=== PATIENT | female | born 1980 | race Caucasian/White ===

== ENCOUNTER 2020-07-02 00:37 | Emergency (ER) | payer MEDICAID, SELFPAY ==
--- NOTE | 2020-07-02 00:38 | XRR_ITS ---
PROCEDURE INFORMATION: Exam: XR Right Knee Exam date and time: 07/02/2020 12:43 AM Age: 40 years old Clinical indication: Knee; Right; Prior surgery; Surgery date: 6+ months; Surgery type: Patella; Patient HX: C/O pain past few days. Worsening ability to bear weight. No injury. ; Additional info: Pain RT knee TECHNIQUE: Imaging protocol: XR Right knee. Views: 3 views. COMPARISON: No relevant prior studies available. FINDINGS: Bones/joints: Chronic appearing irregularities at anterior proximal tibia. Soft tissues: Normal. XR/XR knee RT 3V* [id number] IMPRESSION: No acute findings.
[2020-07-02 00:45] VITALS: BP 172/93; PULSE 72; RESP 18; TEMP 36.2; O2SAT 100; BMI 38.2
[2020-07-02 00:54] VITALS: PULSE 78
--- NOTE | 2020-07-02 01:00 | W.ED.EXTPRO ---
HPI - Extremity Problem General: Chief complaint: Extremity Problem,Nontraumatic Stated complaint: knee pain, right Time Seen by Provider: 07/02/20 00:38 Source: patient Mode of arrival: ambulatory Limitations: no limitations History of Present Illness: HPI Narrative: 40-year-old female patient presents to the emergency department with several day history of right knee pain. She reports was in the shower 2 days ago when she twisted wrong causing pain to her knee. She states pain was not so bad yesterday but has increased today. 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 She states recently moved here and does not have a primary care provider. She states has not taken anything for pain. MD Complaint: extremity pain and extremity swelling Onset (ago): day(s) (2) Pain Consistency: constant Location: right and lower extremity Quality: aching Relieving factors: immobilization and rest Exacerbating factors: weight bearing and walking Associated symptoms: Reports no associated symptoms; Deny chest pain, fever(s) or rash Review of Systems General: Reports: 10 or more systems reviewed and unremarkable except in HPI and below Const: Denies: fever(s), chills or diaphoresis Eyes: Denies: blurry vision or eye redness ENMT: Denies: throat pain, dental pain or disequilibrium Card: Denies: chest pain, palpitations or irregular heart rhythm Resp: Denies: dyspnea, productive cough, non-productive cough or wheezing GI: Denies: abdominal pain, nausea or vomiting : Denies: difficulty voiding or dysuria Musc: Reports: extremity swelling, joint pain and joint swelling; Denies: neck pain or back pain Skin/Breast: Denies: rash or pruritus Neuro: Denies: headache(s), weakness in extremities or behavioral changes Psych: Denies: anxiety or depression Zach/Lymph: Denies: easy bruising PFSH ED PFSH: Medical History (Updated 07/02/20 @ 01:39 by FELA Blaek) History of knee problem Obesity Social History (Updated 07/02/20 @ 01:02 by FELA Blake) Lives independently: Yes Household members: spouse Physical Exam Const: COMMON NORMALS: no acute distress, patient oriented x3, healthy appearing and alert GENERAL APPEARANCE: cooperative, comfortable and well hydrated HENMT: COMMON NORMALS: normocephalic, Normal external nose present and moist oral mucous membranes HEAD & SCALP: normocephalic NOSE: Normal external nose present Eye: COMMON NORMALS: Equal, round and reactive pupils present and EOMs intact bilaterally GENERAL EYE: appearance normal, both eyes and all related structures PUPIL: Yes Equal, round and reactive pupils present Neck/C-Spine: COMMON NORMALS: full ROM and no lymphadenopathy GENERAL: Yes normal visual inspection and Yes trachea midline CERVICAL SPINE: Yes cervical ROM normal Lymph: LYMPHATIC: no lymphadenopathy noted Chest: COMMONS NORMALS: normal inspection of the chest Resp: COMMON NORMALS: normal respiratory effort and clear to auscultation bilaterally AUSCULTATION: clear to auscultation bilaterally Cardio: COMMON NORMALS: regular rhythm, S1 normal heart sound present and S2 normal heart sound present RHYTHM: regular rhythm HEART SOUNDS: S1 normal heart sound present and S2 normal heart sound present GI: COMMON NORMALS: Soft to palpation and non-tender INSPECTION: Yes normal to inspection PALPATION: Yes Soft to palpation : COMMON NORMALS: Yes no CVA tenderness BLADDER/KIDNEY EXAM: Yes no CVA tenderness Back/Pelvis: COMMON NORMALS: no CVA tenderness and thoracic and lumbar spine normal to inspection Extremity: COMMON NORMALS: normal to inspection, capillary refill normal, no clubbing, cyanosis or edema, no calf tenderness and no pedal edema GENERAL: Yes normal exam except as noted RIGHT LOWER EXTREMITY: Yes knee joint Right knee: Yes inspection (edema anterior rt knee), Yes palpation (Pain along the patellar joint), Yes ROM (Limited secondary to pain) and Yes neurovascular exam (Distally intact) Neuro: COMMON NORMALS: patient oriented x3 and no focal motor deficits SENSORIUM/ORIENTATION: Yes alert Psych: COMMON NORMALS: mental status grossly normal, Normal thought process present and cooperative ACTIVITY/MOTOR BEHAVIOR: Yes appropriate eye contact THOUGHT PROCESS: Normal thought process present Skin: COMMON NORMALS: no rashes or lesions noted and turgor normal GENERAL SKIN EXAM: no rashes or lesions noted and turgor normal Course Vital Signs: Vital signs: Vital Signs Temperature 97.1 F L 07/02/20 00:45 Pulse Rate 68 07/02/20 01:44 Respiratory Rate 18 07/02/20 01:44 Blood Pressure 162/106 07/02/20 01:44 Pulse Oximetry 96 07/02/20 01:44 MDM - Extremity (Nontraumatic) Imaging Data^: Xray Ortho: Radiologist's impression: [address] [id number] XRay Report Signed Patient: Dolores Carlson Unit #: [id number] : 1980 Age/Sex: 40 / F ADM Date: 07/02/20 Loc: ER Room/Bed: Attending Dr: Ordering Provider/Ordering MD: Charo Larson Date of Service: 07/02/20 Procedure(s): XR knee RT 3V* [id number] Accession Number(s): [id number] Report Number: [id number] PROCEDURE INFORMATION: Exam: XR Right Knee Exam date and time: 07/02/2020 12:43 AM Age: 40 years old Clinical indication: Knee; Right; Prior surgery; Surgery date: 6+ months; Surgery type: Patella; Patient HX: C/O pain past few days. Worsening ability to bear weight. No injury. ; Additional info: Pain RT knee TECHNIQUE: Imaging protocol: XR Right knee. Views: 3 views. COMPARISON: No relevant prior studies available. FINDINGS: Bones/joints: Chronic appearing irregularities at anterior proximal tibia. Soft tissues: Normal. XR/XR knee RT 3V* [id number] IMPRESSION: No acute findings. Dictated By: Alexey Cancino MD Signed By: Alexey Cancino MD Signed Date/Time: 07/02/20130 DD/ 0129 Discharge Plan Discharge Patient Disposition: Home Clinical Impression: Derangement of knee, right Acute knee pain Qualifiers: Laterality: right Qualified Code(s): M25.561 - Pain in right knee Condition: Stable Prescriptions: New IBU 800 mg tablet 800 mg PO TID PRN (Reason: pain) Qty: 30 RF: 0 Discharge Orders: Discharge ED (Routine); Ordered 07/02/20 Ordered By: Charo Larson Discharge Diet: Usual diet Discharge Activity: Limit activity as instructed Patient Instructions: Crutch Instructions (ED), Knee Pain (ED), Knee Immobilizer (ED) Activity Restrictions/Additional Instructions: Social service will assist with MRI scheduling of your right knee and follow-up with orthopedic specialty. You will also need primary care follow-up/establishment since you are new to the area, they will help with this as well. Keep the right knee elevated, may apply cool compresses to help with swelling and pain. Utilize crutches and knee immobilizer to help with knee weakness and pain. Return to the emergency department if you develop calf pain, increased right lower extremity pain or concerning symptoms. Do not take [id number] medications such as Advil, naproxen, Aleve or anti-inflammatories as duplication of therapy can occur May take Tylenol as needed for pain with prescribed ibuprofen. Coding Level of Care Code ED Cardiology Rn for Zabrina Burgess Exam Comprehensive
[2020-07-02] MEDS: ibuprofen 800 mg tablet PO (01:10)
[2020-07-02 01:44] VITALS: BP 162/106; PULSE 68; RESP 18; O2SAT 96
--- NOTE | 2020-07-05 07:49 | DCPLANNER ---
late entry - dry cleaning manager had message to schedule an out patient MRI for patient and a follow up appointment with ortho. dry cleaning manager faxed order for MRI and patients information to centralized scheduling, will call for appointment information. dry cleaning manager also had message to schedule a follow up appointment for patient after the MRI with ortho. After the MRI is scheduled, special education case manager will call ortho clinic for appointment. dry cleaning manager also had message to speak with patient about getting established with a primary care physician. dry cleaning manager will call patient on 07.05.20 to talk about getting a primary care physician.
--- NOTE | 2020-07-05 09:55 | DCPLANNER ---
manager non profit received a note to schedule patient a primary care doctor appointment. manager non profit spoke with patient and gave her different options in [facility]. Patient stated that she wanted to go with Doctor Orlando's office and per Doctor Orlando's instructions, patient should call and schedule it themselves. manager non profit provided patient with Doctor Orlando's contact information.
--- NOTE | 2020-07-28 14:26 | DCPLANNER ---
Patient had a follow up appointment scheduled for 07.18.20 for an out patient MRI - patient did attend. manager human capital called ortho clinic to refer patient to the ortho clinic after the MRI. manager human capital spoke with Libby, gave clinic patients information. manager human capital was told that patients information would be printed and reviewed. Clinic will call patient with appointment information.
--- NOTE | 2020-08-01 07:50 | DCPLANNER ---
Patient has a follow up appointment scheduled for Monday, August 03, 2020 at 10:[address] Barron. Clinic will call patient with appointment information.
--- NOTE | 2020-08-17 08:07 | DCPLANNER ---
Patient had a follow up appointment scheduled for 08.03.[address] Barron at [facility] - patient did attend appointment.
== END 2020-07-02 01:48 | disposition home or self-care (01) ==
PROVIDERS: Emergency Provider Nurse Practitioner Family
DX: M23.91 Unspecified internal derangement of right knee (principal)
CPT/HCPCS: 12345; 29530; 73562; 99281; 99283; E0114

== ENCOUNTER 2020-07-07 11:11 | Observation (INO) | payer MEDICAID, SELFPAY ==
[2020-07-07 11:15] VITALS: BP 196/122; PULSE 74; RESP 18; TEMP 36.7; O2SAT 96; BMI 39.9
--- NOTE | 2020-07-07 11:34 | ED_ITS ---
HPI - Nausea/Vomiting/Diarrhea General: Chief complaint: Nausea/Vomiting/Diarrhea Stated complaint: N/V Time Seen by Provider: 07/07/20 11:18 History of Present Illness: HPI Narrative: The patient is a 40-year-old female with chronic neck and back pain on 30 mg of morphine 3 times a day. She comes to the ER because she has been nauseous and vomiting since 3 AM. She says she has been 3 days without her morphine because she has ran out. She recently moved to the area and has not established care and has been trying to get in to a pain management doctor. She said she has had at least 10 bouts of vomiting and almost nothing left in her stomach is coming up up bile. Denies abdominal pain. She says she has mild loose stools but no significant diarrhea. MD elicited complaint: nausea and vomiting Description of vomiting: bilious Associated nausea: Yes Location of pain: None Severity: moderate Exacerbating factors: eating Relieving factors: none Context: other (Off chronic narcotics for 3 days) Associated symtoms: Reports anxiety and nausea; Denies change in vision, chest pain, dizziness, fatigue, headache(s) or palpitations Review of Systems General: Reports: 10 or more systems reviewed and unremarkable except in HPI and below Const: Denies: fatigue Eyes: Denies: change in vision, blurry vision or eye redness ENMT: Denies: throat pain, swelling of lips/tongue, ear or mastoid pain or nasal congestion Card: Denies: chest pain, palpitations, irregular heart rhythm, edema, dyspnea on exertion or orthopnea Resp: Denies: dyspnea, productive cough or non-productive cough GI: Reports: nausea and vomiting; Denies: abdominal pain, diarrhea or GI cramping : Denies: flank pain, difficulty voiding, urinary frequency or urinary urgency Musc: Denies: neck pain, back pain, extremity pain, joint pain, joint redness, limited range of motion or muscle weakness Skin/Breast: Denies: rash, pruritus, erythema, skin pain or skin tenderness Neuro: Denies: headache(s), numbness in extremities, weakness in extremities, sensory changes, difficulty walking, dizziness, confusion or Slurred speech present Psych: Reports: anxiety Endo: Denies: polyuria All/Imm: Denies: urticaria, throat swelling or tongue swelling PFSH ED PFSH: Medical History (Updated 07/07/20 @ 19:26 by Daniel Josue MD) History of knee problem Obesity Social History (Updated 07/02/20 @ 01:02 by FELA Blake) Lives independently: Yes Household members: spouse Physical Exam Const: COMMON NORMALS: no acute distress, average body habitus, patient oriented x3, no limitations, healthy appearing, alert and well nourished GENERAL APPEARANCE: cooperative, comfortable, well kempt, well developed and anxious NUTRITIONAL APPEARANCE: obese ORIENTATION/CONSCIOUSNESS: Yes awake, Yes oriented to person, Yes oriented to place and Yes oriented to time HENMT: COMMON NORMALS: normocephalic, external ears normal and Normal external nose present HEAD & SCALP: normal to inspection and normocephalic NOSE: Normal external nose present EXTERNAL EAR: Yes external ears normal MOUTH: Normal oral and palatal mucosa present THROAT: posterior oropharynx normal Eye: COMMON NORMALS: Equal, round and reactive pupils present and EOMs intact bilaterally GENERAL EYE: appearance normal, both eyes and all related structures PUPIL: Yes Equal, round and reactive pupils present Neck/C-Spine: COMMON NORMALS: full ROM, no lymphadenopathy, no meningeal signs and no JVD GENERAL: Yes normal visual inspection Lymph: LYMPHATIC: no lymphadenopathy noted Chest: COMMONS NORMALS: normal inspection of the chest and normal palpation of entire chest wall Resp: COMMON NORMALS: normal respiratory effort, No retractions, No use of accessory muscles, clear to auscultation bilaterally and percussion normal EFFORT & INSPECTION: Yes able to speak in complete sentences AUSCULTATION: clear to auscultation bilaterally PERCUSSION: percussion normal Cardio: COMMON NORMALS: no JVD, regular rate, regular rhythm, S1 normal heart sound present, S2 normal heart sound present and Peripheral pulses 2+ throughout RATE: regular rate RHYTHM: regular rhythm HEART SOUNDS: S1 normal heart sound present and S2 normal heart sound present PERIPHERAL PULSES: Peripheral pulses 2+ throughout GI: COMMON NORMALS: Normal to inspection, nondistended, normoactive bowel sounds present, Soft to palpation, non-tender and no masses INSPECTION: Yes normal to inspection PALPATION: Yes Soft to palpation : COMMON NORMALS: Yes no CVA tenderness BLADDER/KIDNEY EXAM: Yes no CVA tenderness Back/Pelvis: COMMON NORMALS: no CVA tenderness, thoracic and lumbar spine normal to inspection, no thoracic nor lumbar tenderness and thoraco-lumbar ROM normal Extremity: COMMON NORMALS: normal to inspection, full ROM, capillary refill normal, no joint enlargement and no pedal edema GENERAL: Yes normal exam except as noted Neuro: COMMON NORMALS: patient oriented x3, CN's II-XII intact bilaterally, moves all extremities, no focal motor deficits, no sensory deficits noted and gait normal SENSORIUM/ORIENTATION: Yes alert, Yes oriented to person, Yes oriented to place and Yes oriented to time MENINGEAL SIGNS: Yes no meningeal signs Psych: COMMON NORMALS: mental status grossly normal, Normal thought process present, cooperative, normal affect and speech normal APPEARANCE: Yes well kempt ATTITUDE: Yes calm SPEECH: Yes normal speech THOUGHT PROCESS: Normal thought process present Skin: COMMON NORMALS: no rashes or lesions noted GENERAL SKIN EXAM: no rashes or lesions noted Course Vital Signs: Vital signs: Vital Signs Temperature 98.1 F 07/07/20 11:15 Pulse Rate 74 07/07/20 11:15 Respiratory Rate 18 07/07/20 11:15 Blood Pressure 196/122 07/07/20 11:15 Pulse Oximetry 96 07/07/20 11:15 MDM - Nausea/Vomiting/Diarrhea MDM Narrative: Medical decision making narrative: The patient is a 40-year-old female who comes to the ER 3 days after running out of her 30 mg morphine tablets which she took 3 times a day. She has intractable vomiting and despite multiple efforts she continues to retch. I have even given her morphine twice which has not helped. She is dehydrated and will need observation upstairs. Dr. Valadez accepts Lab Data: Labs: Lab Results 07/07/20 07/07/20 07/07/20 Range/Units 12:15 12:15 13:42 WBC 15.4 H (4.0-10.0) 10^3/ uL RBC 4.56 (4.1-5.3) 10^6/u L Hgb 14.2 (11.5-15.3) g/dL Hct 42.8 (37.0-47.0) % MCV 93.9 (81-99) fL MCH 31.1 (28.0-34.0) pg MCHC 33.2 (30.0-36.0) g/dL RDW 12.9 (12.1-15.1) % Plt Count 40 L (130-400) 10^3/c mm MPV 11.9 H (7.4-10.4) fL Neut % (Auto) 87.2 % Lymph % (Auto) 7.9 % [place] % (Auto) 4.0 % Eos % (Auto) 0.1 % Baso % (Auto) 0.3 % Neut # (Auto) 13.47 H (1.8-7.7) 10^3/u L Lymph # (Auto) 1.2 (0.8-4.8) 10^3/u L [place] # (Auto) 0.6 (0.2-0.9) 10^3/u L Eos # (Auto) 0.0 (0.0-0.8) 10^3/u L Baso # (Auto) 0.0 (0.0-0.1) 10^3/u L Nucleated RBC % (a uto) 0.9 % Nucleated RBCs # 0.1 /100WBC Sodium (136-145) mmol/L Potassium (3.5-5.1) mmol/L Chloride (98-107) mmol/L Carbon Dioxide (22-29) mmol/L Anion Gap (5-19) BUN (6-20) mg/dL Creatinine (0.5-0.9) mg/dL GFR Calculation (90-130) mL/min Glucose (65-115) mg/dL Calculated Osmolal ity (285-295) mOsm/k g Lactate (0.5-2.2) mmol/L Calcium (8.5-10.5) mg/dL Total Bilirubin (0.15-1.2) mg/dL AST (0-32) U/L ALT (0-33) U/L Alkaline Phosphata se (35-105) IU/L Total Protein (6.6-8.7) g/dL Albumin (3.5-5.2) g/dL Globulin (1.3-4.6) g/dL Lipase (13-60) U/L HCG, Qual (Negative) Urine Color Yellow (Yellow) Urine Appearance Sl hazy (CLEAR) Urine pH 5 (5-7) Ur Specific Gravit y 1.015 (1.005-1.030) Urine Protein Neg (Negative) Urine Glucose (UA) Norm (Normal) Urine Ketones Negative (Negative) Urine Blood Neg (Negative) Urine Nitrate Negative (Negative) Urine Bilirubin Neg (Negative) Urine Urobilinogen Norm (Negative) mg/dL Ur Leukocyte Kecia ase Negative (Negative) Urine RBC 0-4 H (0-2) /hpf Urine WBC 5-10 H (0-5) /hpf Ur Squamous Epith Cells 15-25 H (0-5) /hpf Amorphous Sediment Not Reportable Urine Bacteria 3+ H (NONE) /hpf Urine Opiates Scre en Positive H (Negative) ng/mL Ur Barbiturates Sc reen Negative (Negative) ng/mL Ur Phencyclidine S crn Negative (Negative) ng/mL Ur Amphetamines Sc reen Negative (Negative) ng/mL U Benzodiazepines Scrn Negative (Negative) ng/mL Urine Cocaine Scre en Negative (Negative) ng/mL U Marijuana (THC) Screen Negative (Negative) ng/mL Ethyl Alcohol (0-10) mg/dL 07/07/20 07/07/20 07/07/20 Range/Units 13:42 13:42 13:42 WBC (4.0-10.0) 10^3/ uL RBC (4.1-5.3) 10^6/u L Hgb (11.5-15.3) g/dL Hct (37.0-47.0) % MCV (81-99) fL MCH (28.0-34.0) pg MCHC (30.0-36.0) g/dL RDW (12.1-15.1) % Plt Count (130-400) 10^3/c mm MPV (7.4-10.4) fL Neut % (Auto) % Lymph % (Auto) % [place] % (Auto) % Eos % (Auto) % Baso % (Auto) % Neut # (Auto) (1.8-7.7) 10^3/u L Lymph # (Auto) (0.8-4.8) 10^3/u L [place] # (Auto) (0.2-0.9) 10^3/u L Eos # (Auto) (0.0-0.8) 10^3/u L Baso # (Auto) (0.0-0.1) 10^3/u L Nucleated RBC % (a uto) % Nucleated RBCs # /100WBC Sodium 144 (136-145) mmol/L Potassium 4.8 (3.5-5.1) mmol/L Chloride 109 H (98-107) mmol/L Carbon Dioxide 20 L (22-29) mmol/L Anion Gap 19.8 H (5-19) BUN 15 (6-20) mg/dL Creatinine 0.7 (0.5-0.9) mg/dL GFR Calculation 91.8 (90-130) mL/min Glucose 111 (65-115) mg/dL Calculated Osmolal ity 300 H (285-295) mOsm/k g Lactate 2.0 (0.5-2.2) mmol/L Calcium 9.6 (8.5-10.5) mg/dL Total Bilirubin 0.4 (0.15-1.2) mg/dL AST 24 (0-32) U/L ALT 16 (0-33) U/L Alkaline Phosphata se 93 (35-105) IU/L Total Protein 7.7 (6.6-8.7) g/dL Albumin 4.0 (3.5-5.2) g/dL Globulin 3.7 (1.3-4.6) g/dL Lipase 25 (13-60) U/L HCG, Qual Negative (Negative) Urine Color (Yellow) Urine Appearance (CLEAR) Urine pH (5-7) Ur Specific Gravit y (1.005-1.030) Urine Protein (Negative) Urine Glucose (UA) (Normal) Urine Ketones (Negative) Urine Blood (Negative) Urine Nitrate (Negative) Urine Bilirubin (Negative) Urine Urobilinogen (Negative) mg/dL Ur Leukocyte Kecia ase (Negative) Urine RBC (0-2) /hpf Urine WBC (0-5) /hpf Ur Squamous Epith Cells (0-5) /hpf Amorphous Sediment Urine Bacteria (NONE) /hpf Urine Opiates Scre en (Negative) ng/mL Ur Barbiturates Sc reen (Negative) ng/mL Ur Phencyclidine S crn (Negative) ng/mL Ur Amphetamines Sc reen (Negative) ng/mL U Benzodiazepines Scrn (Negative) ng/mL Urine Cocaine Scre en (Negative) ng/mL U Marijuana (THC) Screen (Negative) ng/mL Ethyl Alcohol < 10 (0-10) mg/dL Discharge Plan Discharge Patient Disposition: Placed in Observation Clinical Impression: Acute narcotic withdrawal, Intractable cyclical vomiting Coding Level of Care Code ED Stile Ripsaw Operator for Chg Fwd Exam Comprehensive
[2020-07-07 12:32] LABS: Amphetamines Screen Urine Negative (Negative); Barbiturates Screen Urine Negative (Negative); Benzodiazepines Screen Urine Negative (Negative); Cocaine Screen Urine Negative (Negative); Opiate Screen Urine Positive (Negative); PCP Screen Urine Negative (Negative); THC Screen Urine Negative (Negative)
[2020-07-07 12:34] LABS: Add Urine Microscopic? YES; Bilirubin Urine Neg (Negative); Blood Urine Neg (Negative); Glucose Urine UA Norm (Normal); Ketones Urine Negative (Negative); Leukocyte Esterase Urine Negative (Negative); Nitrate Urine Negative (Negative); Protein Urine Neg (Negative); Specific Gravity, Urine 1.015 (1.005-1.030); Urine Appearance SL Hazy (CLEAR); Urine Color Yellow (Yellow); Urobilinogen Urine Norm (Negative); pH Urine 5 (5-7)
[2020-07-07 12:35] LABS: Add Urine Culture? No; Bacteria Urine 3+ /hpf; RBC Urine 0-4 /hpf (0-2); Squamous Epithelial Cell Urine 15-25 /hpf (0-5)
[2020-07-07] MEDS: diphenhydrAMINE 50 mg/mL SDV 1mL 25 MG IVP (13:26)
[2020-07-07] MEDS: ondansetron 2 mg/ML SDV 2 mL 4 MG IVP ×3 (13:27→22:52)
[2020-07-07] MEDS: sodium chloride 0.9% 1,000 ML 999 ML IV (13:27)
[2020-07-07] MEDS: cloNIDine 0.1 mg Tablet 0.2 MG PO (13:27)
[2020-07-07 14:19] LABS: HCG, Serum Qual Negative (Negative)
[2020-07-07 14:26] LABS: Alkaline Phosphatase 93 IU/L (35-105); Blood Urea Nitrogen 15 mg/dL (6-20); Calcium 9.6 mg/dL (8.5-10.5); Carbon Dioxide 20 mmol/L (22-29); Chloride 109 mmol/L (98-107); Globulin 3.7 g/dL (1.3-4.6); Glomerular Filtration Rate 91.8 mL/min (90-130); Glucose 111 mg/dL (65-115); Lipase 25 U/L (13-60); Osmolality Calculated 300 mOsm/kg (285-295); Sodium 144 mmol/L (136-145); Total Bilirubin 0.4 mg/dL (0.15-1.2); Total Protein 7.7 g/dL (6.6-8.7)
[2020-07-07 14:28] LABS: Alcohol Level < 10 mg/dL (0-10)
[2020-07-07 14:29] LABS: Alanine Aminotransferase 16 U/L (0-33); Anion Gap 19.8 (5-19); Aspartate Amino Transferase 24 U/L (0-32); Potassium 4.8 mmol/L (3.5-5.1)
[2020-07-07 14:55] LABS: Basophils % 0.3 %; Eosinophils % 0.1 %; Hematocrit 42.8 % (37.0-47.0); Hemoglobin 14.2 g/dL (11.5-15.3); Lymphocytes # 1.2 10^3/uL (0.8-4.8); Lymphocytes % 7.9 %; Mean Corpuscular HGB Conc 33.2 g/dL (30.0-36.0); Mean Corpuscular Hemoglobin 31.1 pg (28.0-34.0); Mean Corpuscular Volume 93.9 fL (81-99); Mean Platelet Volume 11.9 fL (7.4-10.4); Monocytes # 0.6 10^3/uL (0.2-0.9); Neutrophils # 13.47 10^3/uL (1.8-7.7); Neutrophils % 87.2 %; Nucleated Red Blood Cells # 0.1 /100WBC; Nucleated Red Blood Cells % 0.9 %; Platelet Count 40 10^3/cmm (130-400); Red Blood Count 4.56 10^6/uL (4.1-5.3); Red Cell Distribution Width 12.9 % (12.1-15.1); White Blood Count 15.4 10^3/uL (4.0-10.0)
[2020-07-07 14:56] LABS: Slide Review Slide Review Perform
[2020-07-07] MEDS: morphine 4 mg/mL SDV 1 mL 2 MG IVP ×2 (15:14→19:14)
[2020-07-07] MEDS: prochlorperazine 10 mg Tablet PO (15:42)
[2020-07-07 19:47] VITALS: BP 199/110; PULSE 53; RESP 22; O2SAT 95
--- NOTE | 2020-07-07 19:56 | PM.HP ---
Providers/Chief Complaint Admitting Physician: Callie Valadez MD Primary Care Provider: Tammi Ly Chief Complaint: N/V History of Present Illness Dolores Carlson is a 40 year old female who presented to the emergency room with intractable nausea and vomiting. She has recently relocated here from [facility]. She has seen Nevaeh Burt in [place] but not yet been able to get set up with a pain clinic doctor. Ran out of her morphine 3 days ago. She reports taking 30 mg 3 times a day. She indicated that it was immediate release although there was some hesitation in responding to this. Information is not available in external medication records I currently have access to. She woke up last night with the vomiting. It has been continuous throughout the day leading to the emergency room visit. She has not been able to keep any of her other home medications down. She has noted a few small bright red specks of blood in her vomitus. Has had frequent dry heaves in addition to vomiting of foodstuffs later followed by bilious emesis. She has had some diarrhea. Describes some abdominal cramping. Feels very restless but no itching or creepy crawly feelings. No hallucinations. She has been in the emergency room for quite some time today. She has received 2 doses of low-dose morphine, 2 doses of Zofran, 25 of IV Benadryl as well as an attempted oral Compazine. She has allergies to plan and Phenergan but reported that she cannot take Compazine. She has had significant hypertension in addition to other symptoms. She has baseline hypertension for which she takes lisinopril/hydrochlorothiazide. Pressures today 160 systolic to 190 systolic over 90s to 120s diastolic. She has received 2 doses of hydralazine and a dose of oral clonidine without significant improvement in blood pressures. She has additionally received a liter of saline. Given the intractable nature of her symptoms she is being admitted for continued management. Denies any urinary symptoms, fever, chest pain. No other bleeding beside the specks of bright red blood intermittently in vomitus. No active bleeding noted in vomitus at the bedside. Review of Systems Const: Reports: malaise and diaphoresis; Denies: fever(s), chills or snoring Eyes: Denies: change in vision ENMT: Reports: dry mouth; Denies: throat pain, bleeding gums, nasal congestion or epistaxis Card: Reports: lightheadedness; Denies: chest pain, palpitations, edema or syncope Resp: Denies: dyspnea, productive cough, non-productive cough, pain on inspiration or hemoptysis GI: Reports: nausea, vomiting, diarrhea, constipation (Chronically with constipation related to narcotics but not presently) and GI cramping; Denies: hematochezia or melena : Denies: difficulty voiding, dysuria, urinary frequency or hematuria Musc: Reports: back pain (Chronic), joint pain (Right knee, chronic), muscle cramps and other (Achy all over) Skin/Breast: Reports: erythema (On face, reports rosacea); Denies: rash, pruritus or sores Neuro: Denies: headache(s), numbness in extremities, weakness in extremities, difficulty walking, confusion or involuntary movements Psych: Reports: anxiety (Since symptoms started) and other (Very restless right now); Denies: depression, visual hallucinations, auditory hallucinations or tactile hallucinations Zach/Lymph: Denies: easy bruising, easy bleeding, petechiae or purpura Medications/Allergies Home Medications Medication Instructions Recorded Confirmed Last Taken Type ibuprofen [IBU] 800 mg PO TID PRN #30 tab 07/02/20 07/07/20 Unknown Rx duloxetine 60 mg PO DAILY@07/07/20 07/07/20 Unknown History linaclotide [Linzess] 72 mcg PO DAILY PRN 07/07/20 07/07/20 Unknown History lisinopril-hydrochlorothiazide 1 tab PO DAILY@07/07/20 07/07/20 Unknown History Allergies Allergy/AdvReac Type Severity Reaction Status Date / Time hydrocodone Allergy ADR-Nausea Verified 07/07/20 11:35 metoclopramide [From Reglan] Allergy ADR-Itching Verified 07/07/20 11:35 promethazine [From Phenergan] Allergy ADR-Vomitin Verified 07/07/20 11:35 g PFSH Acute PFSH: Medical History (Updated 07/07/20 @ 20:41 by Callie Valadez MD) Chronic narcotic use ~ 2yrs, for back pain Dyslipidemia borderline by report, not on treatment History of pulmonary embolism post op, had DVT Hypertension Obesity BMI 39 Rosacea Surgical History (Updated 07/07/20 @ 20:30 by Callie Valadez MD) History of back surgery (~2017) History of carpal tunnel release left History of D&C History of hysterectomy due to life threatening bleeding while on anticoagulation for PE/DVT History of laparoscopic adjustable gastric banding History of right knee surgery (~2008) patellar realignment History of tonsillectomy Family History (Updated 07/07/20 @ 20:12 by Callie Valadez MD) Father Cancer pancreatic cancer Other Diabetes Heart disease Hypertension Social History (Updated 07/07/20 @ 20:11 by Callie Valadez MD) Smoking and tobacco status: current every day smoker cigarettes [ Other cigarette details: pack per day ] Alcohol intake: never Substance/Drug Use: never Lives independently: Yes Household members: spouse Current occupational status: disabled Female Reproductive History: : 4 Para: 3 Vitals/I&O/Wt Last Vital Signs Temp 98.1 F 07/07/20 11:15 Pulse 53 L 07/07/20 19:47 Resp 22 H 07/07/20 19:47 BP 199/110 07/07/20 19:47 Pulse Ox 95 07/07/20 19:47 07/07/20 07/07/20 07/07/20 06:59 14:59 22:59 Intake Total 1000 / 1000 Balance 1000 / 1000 Weight last 48 hrs Weight 108.862 kg Physical Exam Const: OTHER: Alert, oriented x3, cooperative but extremely restless HENMT: OTHER: Normocephalic atraumatic, dry mucous membranes, increased vascularity to both cheeks, no palatal petechiae noted Eye: OTHER: Pupils equally round and reactive to light Neck/C-Spine: OTHER: Supple but large Resp: OTHER: Clear to auscultation bilaterally, no rales, rhonchi or wheezes noted, the respirations are a bit shallow and tachypneic, no accessory muscle use noted Cardio: OTHER: Regular rate and rhythm, not bradycardic on my examination, no murmurs noted heart sounds distant GI: OTHER: Abdomen soft, mild diffuse tenderness, no localizing pain, rebound or guarding, normoactive bowel sounds : OTHER: Deferred Extremity: NARRATIVE EXTREMITY EXAM: No pretibial edema, has a well-healed lumbar scar with tenderness to palpation in lumbosacral area generally Neuro: OTHER: Face symmetric, speech clear, moves all extremities, restless right now but no abnormal movements noted Psych: OTHER: Normal affect, does not feel well and it shows Skin: OTHER: Hypervascularity noted to both cheeks, no petechiae, ecchymosis, purpura, scratches or sores noted Data : 07/07/20 13:42 07/07/20 13:42 Other Labs: Laboratory Last Values WBC 15.4 10^3/uL (4.0-10.0) H 07/07/20 13:42 RBC 4.56 10^6/uL (4.1-5.3) 07/07/20 13:42 Hgb 14.2 g/dL (11.5-15.3) 07/07/20 13:42 Hct 42.8 % (37.0-47.0) 07/07/20 13:42 MCV 93.9 fL (81-99) 07/07/20 13:42 MCH 31.1 pg (28.0-34.0) 07/07/20 13:42 MCHC 33.2 g/dL (30.0-36.0) 07/07/20 13:42 RDW 12.9 % (12.1-15.1) 07/07/20 13:42 Plt Count 40 10^3/cmm (130-400) L 07/07/20 13:42 MPV 11.9 fL (7.4-10.4) H 07/07/20 13:42 Neut % (Auto) 87.2 % 07/07/20 13:42 Lymph % (Auto) 7.9 % 07/07/20 13:42 [place] % (Auto) 4.0 % 07/07/20 13:42 Eos % (Auto) 0.1 % 07/07/20 13:42 Baso % (Auto) 0.3 % 07/07/20 13:42 Neut # (Auto) 13.47 10^3/uL (1.8-7.7) H 07/07/20 13:42 Lymph # (Auto) 1.2 10^3/uL (0.8-4.8) 07/07/20 13:42 [place] # (Auto) 0.6 10^3/uL (0.2-0.9) 07/07/20 13:42 Eos # (Auto) 0.0 10^3/uL (0.0-0.8) 07/07/20 13:42 Baso # (Auto) 0.0 10^3/uL (0.0-0.1) 07/07/20 13:42 Nucleated RBC % (auto) 0.9 % 07/07/20 13:42 Nucleated RBCs # 0.1 /100WBC 07/07/20 13:42 PT 13.70 SECONDS (12.1-14.9) 07/07/20 20:39 INR 1.02 (0.8-1.2) 07/07/20 20:39 APTT 20.4 SECONDS (23.9-36.7) L 07/07/20 20:39 Sodium 144 mmol/L (136-145) 07/07/20 13:42 Potassium 4.8 mmol/L (3.5-5.1) 07/07/20 13:42 Chloride 109 mmol/L (98-107) H 07/07/20 13:42 Carbon Dioxide 20 mmol/L (22-29) L 07/07/20 13:42 Anion Gap 19.8 (5-19) H 07/07/20 13:42 BUN 15 mg/dL (6-20) 07/07/20 13:42 Creatinine 0.7 mg/dL (0.5-0.9) 07/07/20 13:42 GFR Calculation 91.8 mL/min (90-130) 07/07/20 13:42 Glucose 111 mg/dL (65-115) 07/07/20 13:42 Calculated Osmolality 300 mOsm/kg (285-295) H 07/07/20 13:42 Lactate 2.0 mmol/L (0.5-2.2) 07/07/20 13:42 Calcium 9.6 mg/dL (8.5-10.5) 07/07/20 13:42 Total Bilirubin 0.4 mg/dL (0.15-1.2) 07/07/20 13:42 AST 24 U/L (0-32) 07/07/20 13:42 ALT 16 U/L (0-33) 07/07/20 13:42 Alkaline Phosphatase 93 IU/L (35-105) 07/07/20 13:42 Total Protein 7.7 g/dL (6.6-8.7) 07/07/20 13:42 Albumin 4.0 g/dL (3.5-5.2) 07/07/20 13:42 Globulin 3.7 g/dL (1.3-4.6) 07/07/20 13:42 Lipase 25 U/L (13-60) 07/07/20 13:42 HCG, Qual Negative (Negative) 07/07/20 13:42 Urine Color Yellow (Yellow) 07/07/20 12:15 Urine Appearance Sl hazy (CLEAR) 07/07/20 12:15 Urine pH 5 (5-7) 07/07/20 12:15 Ur Specific [place] 1.015 (1.005-1.030) 07/07/20 12:15 Urine Protein Neg (Negative) 07/07/20 12:15 Urine Glucose (UA) Norm (Normal) 07/07/20 12:15 Urine Ketones Negative (Negative) 07/07/20 12:15 Urine Blood Neg (Negative) 07/07/20 12:15 Urine Nitrate Negative (Negative) 07/07/20 12:15 Urine Bilirubin Neg (Negative) 07/07/20 12:15 Urine Urobilinogen Norm mg/dL (Negative) 07/07/20 12:15 Ur Leukocyte Esterase Negative (Negative) 07/07/20 12:15 Urine RBC 0-4 /hpf (0-2) H 07/07/20 12:15 Urine WBC 5-10 /hpf (0-5) H 07/07/20 12:15 Ur Squamous Epith Cells 15-25 /hpf (0-5) H 07/07/20 12:15 Amorphous Sediment Not Reportable 07/07/20 12:15 Urine Bacteria 3+ /hpf (NONE) H 07/07/20 12:15 Urine Opiates Screen Positive ng/mL (Negative) H 07/07/20 12:15 Ur Barbiturates Screen Negative ng/mL (Negative) 07/07/20 12:15 Ur Phencyclidine Scrn Negative ng/mL (Negative) 07/07/20 12:15 Ur Amphetamines Screen Negative ng/mL (Negative) 07/07/20 12:15 U Benzodiazepines Scrn Negative ng/mL (Negative) 07/07/20 12:15 Urine Cocaine Screen Negative ng/mL (Negative) 07/07/20 12:15 U Marijuana (THC) Screen Negative ng/mL (Negative) 07/07/20 12:15 Ethyl Alcohol < 10 mg/dL (0-10) 07/07/20 13:42 A&P Assessment and plan (1) Acute narcotic withdrawal: In a patient who is chronically on morphine. Reported to be immediate release but given the timeframe from when her last dose was to the onset of symptoms I suspect she was on extended release morphine 30 mg 3 times a day. Narcotics are prescribed for chronic back pain related to back surgery in [place] approximately 4 years ago. She is disabled from the back pain problems. She just relocated from [place] and has yet to establish care with a pain clinic. She has intractable nausea, vomiting, abdominal cramping, mild diarrhea, restlessness and hypertension. Clinically appears volume depleted. Has an abnormal urinalysis on presentation but looks to be a contaminated clean-catch specimen. Lactic acid was normal. Status: Acute (2) Hypertension: Currently with hypertensive urgency secondary to narcotic withdrawal, baseline blood pressures unknown but chronically on lisinopril/hydrochlorothiazide Status: Acute Qualifiers: Hypertension type: other secondary hypertension Qualified Code(s): I15.8 - Other secondary hypertension (3) Thrombocytopenia: Incidental finding on laboratory evaluation. Other than the reported specks of bright red blood in vomitus a few times today no other bleeding noted. No bleeding gums, epistaxis, bruising, hematuria, other indications of bleeding, calf pain or swollen legs. Has a remote history of postoperative DVT and PE. Status: Acute Additional A&P Information Reactive leukocytosis Observation admission for now Continue IV fluids Clonidine patch Scheduled Zofran, as needed Ativan for nausea and vomiting presently We will try a dose of [place] Compazine We will give additional IV morphine with plan to try to get an extended release morphine tablet 15 mg every 12 hours initiated this evening once her degree of vomiting is improved Hold home lisinopril/hydrochlorothiazide secondary to current volume depletion Hold home Linzess Continue home Cymbalta Peripheral smear review, recheck platelet count, check coagulation studies Monitor for more progressive bleeding indicators IV Protonix until vomiting is under control SCDs for DVT prophylaxis given prior history See if we can get any records from her primary care provider in [place] We will have to see if we can get her set up in a pain clinic as able upon discharge. She indicates that other alternatives to narcotic management of her pain have been considered in the past. She is well versed on avoiding alcohol and other drugs with illicit and sedating prescribed medications. She indicates she did not realize that she would have to establish with a pain clinic for chronic prescription when she moved. She has seen Nevaeh Burt in [place] for primary care here. Care otherwise Full code Plans were discussed with patient and she was given an opportunity to ask questions Attestations Medical Necessity Statement*: Currently anticipated stay less than 2 midnights in a patient presenting with acute narcotic withdrawal. She does have significant hypertension but suspect related to the withdrawal. Labs also revealed a low platelet count of 40 but no active bleeding. Goal is to get her symptoms to subside enough to be able to resume oral narcotics and work on outpatient follow-up options. She is recently relocated from out of state. Other plans as indicated. Coding Level of Care Code Acute Metal Cans Supervisor for Zabrina Burgess Diagnoses Acute narcotic withdrawal F11.23 Hypertension I15.8 Hypertension type: other secondary hypertension Thrombocytopenia D69.6
[2020-07-07] MEDS: LORazepam 2 mg/mL INJ 1 mL 1 MG IVP (20:39)
[2020-07-07 20:40] VITALS: RESP 18; O2SAT 98
[2020-07-07] MEDS: hyDRALAzine 20 mg/mL INJ 1 mL 10 MG IVP (20:40)
[2020-07-07] MEDS: morphine 4 mg/mL SDV 1 mL IVP (20:40)
[2020-07-07 20:57] LABS: INR 1.02 (0.8-1.2); Partial Thromboplastin Time 20.4 SECONDS (23.9-36.7)
[2020-07-07 21:19] LABS: Platelet Count 269 10^3/cmm (130-400)
[2020-07-07 21:22] VITALS: BP 172/50; PULSE 81; RESP 18; TEMP 37.6; O2SAT 94
[2020-07-07] MEDS: cloNIDine 0.1 mg/24 hr Patch 1 PATCH TRANSDERMA (23:04)
[2020-07-07] MEDS: prochlorperazine 25 mg Supp PR (23:07)
[2020-07-07] MEDS: sodium chloride 0.9% 1,000 ML 125 ML IV (23:33)
[2020-07-07] MEDS: pantoprazole 40 mg SDV IVP (23:37)
[2020-07-08] VITALS: BP 117/67; PULSE 80; RESP 15; TEMP 37.4; O2SAT 96
[2020-07-08 00:48] VITALS: RESP 19
[2020-07-08] MEDS: morphine 4 mg/mL SDV 1 mL IVP (00:48)
[2020-07-08 04:00] VITALS: BP 132/71; PULSE 79; RESP 15; TEMP 37.3; O2SAT 97
[2020-07-08 05:02] LABS: LAB Peripheral Smear Sent for Review
[2020-07-08 05:16] LABS: Basophils % 0.3 %; Hematocrit 33.2 % (37.0-47.0); Hemoglobin 10.9 g/dL (11.5-15.3); Lymphocytes # 2.9 10^3/uL (0.8-4.8); Lymphocytes % 19.5 %; Mean Corpuscular HGB Conc 32.8 g/dL (30.0-36.0); Mean Corpuscular Volume 94.3 fL (81-99); Mean Platelet Volume 10.1 fL (7.4-10.4); Monocytes # 1.2 10^3/uL (0.2-0.9); Monocytes % 7.8 %; Neutrophils # 10.71 10^3/uL (1.8-7.7); Neutrophils % 71.9 %; Nucleated Red Blood Cells % 0 %; Platelet Count 218 10^3/cmm (130-400); Red Blood Count 3.52 10^6/uL (4.1-5.3); Red Cell Distribution Width 13.3 % (12.1-15.1); White Blood Count 14.9 10^3/uL (4.0-10.0)
[2020-07-08] MEDS: ondansetron 2 mg/ML SDV 2 mL 4 MG IVP (05:23)
[2020-07-08 05:45] LABS: Anion Gap 14.2 (5-19); Blood Urea Nitrogen 14 mg/dL (6-20); Calcium 8.5 mg/dL (8.5-10.5); Carbon Dioxide 25 mmol/L (22-29); Chloride 109 mmol/L (98-107); Glomerular Filtration Rate 91.8 mL/min (90-130); Glucose 102 mg/dL (65-115); Magnesium 1.9 mg/dL (1.7-2.3); Osmolality Calculated 301 mOsm/kg (285-295); Potassium 3.2 mmol/L (3.5-5.1); Sodium 145 mmol/L (136-145)
[2020-07-08] MEDS: morphine ER (12 HR) 15 mg Tablet PO (06:25)
[2020-07-08 07:49] VITALS: BP 108/54; PULSE 64; RESP 18; TEMP 36.8; O2SAT 95
[2020-07-08] MEDS: SUMAtriptan 25 mg Tablet 50 MG PO (10:07)
[2020-07-08] MEDS: sodium chloride 0.9% 1,000 ML 125 ML IV (10:12)
[2020-07-08] MEDS: potassium chloride ER 20 mEq Tablet 40 MEQ PO (11:28)
[2020-07-08] MEDS: duloxetine 60 mg Capsule PO (11:29)
[2020-07-08 11:41] VITALS: BP 107/61; PULSE 56; RESP 17; TEMP 36.8; O2SAT 94
--- NOTE | 2020-07-08 11:46 | PM.DCS ---
Discharge Providers Date of Admission: 07/07/20 20:19 Date of Discharge: July 08, 2020 Attending Provider at Admission: Callie Valadez MD Attending Provider at Discharge: Alonzo Hopper MD Diagnoses at Discharge Discharge Diagnosis (1) Acute narcotic withdrawal: Status: Acute (2) Hypertension: Status: Acute Qualifiers: Hypertension type: other secondary hypertension Qualified Code(s): I15.8 - Other secondary hypertension (3) Thrombocytopenia: Status: Acute Reason for Visit Reason for Visit: N/V Hospital Course Hospital Course This is a 40-year-old female with a past medical history of chronic back pain, on morphine 30 mg 3 times daily, Robaxin 500 mg 3 times daily, Cymbalta 60 mg daily, hypertension, history of chronic nausea and vomiting, who was formally a resident of [facility], just moved to [place], who presents [facility] due to nausea and vomiting Patient was admitted to [facility] for nausea and vomiting likely secondary to acute narcotic withdrawal, she was admitted to [facility] and received fluids, pain control, clinically monitored, patient clinically improved. Patient could not get any refills through her primary care provider as she she was trying to get onto [place] Medicaid, now is on it. I have discharged patient on morphine 15 mg 3 times daily as needed for 7 days she should follow-up with her primary care provider for further refills, and should follow-up with pain management. Patient was advised to use morphine sparingly, monitor for symptoms of opiate overdose, if so call 911. Patient was advised not to drink alcohol and use morphine, not to drive while taking pain medications. Upon getting consent from patient orally, I did call patient's clinic in [facility], and confirmed her doses of medications. Patient was also found to be hypertensive during hospitalization, clonidine 0.1 mg twice daily was added to her medication regimen Patient also reports chronic nausea and vomiting, of undetermined etiology. She tells me that she has had extensive work-ups in the past, her gallbladder has been removed, appendix has been resected physicians in [place] cannot figure out why she has chronic nausea and vomiting. She does have a history of an arachnoid cyst, that they monitor. Physical Exam Const: COMMON NORMALS: no acute distress and patient oriented x3 HENMT: COMMON NORMALS: normocephalic HEAD & SCALP: normocephalic Neck/C-Spine: COMMON NORMALS: no JVD Resp: COMMON NORMALS: normal respiratory effort, No retractions, No use of accessory muscles and clear to auscultation bilaterally AUSCULTATION: clear to auscultation bilaterally Cardio: COMMON NORMALS: no JVD, regular rate, regular rhythm, S1 normal heart sound present and S2 normal heart sound present RATE: regular rate RHYTHM: regular rhythm HEART SOUNDS: S1 normal heart sound present and S2 normal heart sound present GI: COMMON NORMALS: Normal to inspection, nondistended, normoactive bowel sounds present, Soft to palpation, non-tender, No hepatosplenomegaly present, no masses and no bruits PALPATION: Yes Soft to palpation and Yes No hepatosplenomegaly present Extremity: COMMON NORMALS: capillary refill normal, no clubbing, cyanosis or edema, no calf tenderness and no pedal edema Neuro: COMMON NORMALS: patient oriented x3 Psych: COMMON NORMALS: mental status grossly normal Discharge Data Data Completed and Pending: Labs from last 24 hours 07/08/20 07/08/20 07/07/20 04:57 04:57 20:39 WBC 14.9 H RBC 3.52 L Hgb 10.9 L Hct 33.2 L MCV 94.3 MCH 31.0 MCHC 32.8 RDW 13.3 Plt Count 218 269 MPV 10.1 Neut % (Auto) 71.9 Lymph % (Auto) 19.5 [place] % (Auto) 7.8 Eos % (Auto) 0.0 Baso % (Auto) 0.3 Neut # (Auto) 10.71 H Lymph # (Auto) 2.9 [place] # (Auto) 1.2 H Eos # (Auto) 0.0 Baso # (Auto) 0.0 Nucleated RBC % (a uto) 0 Nucleated RBCs # 0.0 PT INR APTT Sodium 145 Potassium 3.2 L Chloride 109 H Carbon Dioxide 25 Anion Gap 14.2 BUN 14 Creatinine 0.7 GFR Calculation 91.8 Glucose 102 Calculated Osmolal ity 301 H Lactate Calcium 8.5 Magnesium 1.9 Total Bilirubin AST ALT Alkaline Phosphata se Total Protein Albumin Globulin Lipase HCG, Qual Urine Color Urine Appearance Urine pH Ur Specific Gravit y Urine Protein Urine Glucose (UA) Urine Ketones Urine Blood Urine Nitrate Urine Bilirubin Urine Urobilinogen Ur Leukocyte Kecia ase Urine RBC Urine WBC Ur Squamous Epith Cells Amorphous Sediment Urine Bacteria Urine Opiates Scre en Ur Barbiturates Sc reen Ur Phencyclidine S crn Ur Amphetamines Sc reen U Benzodiazepines Scrn Urine Cocaine Scre en U Marijuana (THC) Screen Ethyl Alcohol 07/07/20 07/07/20 07/07/20 20:39 13:42 13:42 WBC RBC Hgb Hct MCV MCH MCHC RDW Plt Count MPV Neut % (Auto) Lymph % (Auto) [place] % (Auto) Eos % (Auto) Baso % (Auto) Neut # (Auto) Lymph # (Auto) [place] # (Auto) Eos # (Auto) Baso # (Auto) Nucleated RBC % (a uto) Nucleated RBCs # PT 13.70 INR 1.02 APTT 20.4 L Sodium Potassium Chloride Carbon Dioxide Anion Gap BUN Creatinine GFR Calculation Glucose Calculated Osmolal ity Lactate 2.0 Calcium Magnesium Total Bilirubin AST ALT Alkaline Phosphata se Total Protein Albumin Globulin Lipase HCG, Qual Negative Urine Color Urine Appearance Urine pH Ur Specific Gravit y Urine Protein Urine Glucose (UA) Urine Ketones Urine Blood Urine Nitrate Urine Bilirubin Urine Urobilinogen Ur Leukocyte Kecia ase Urine RBC Urine WBC Ur Squamous Epith Cells Amorphous Sediment Urine Bacteria Urine Opiates Scre en Ur Barbiturates Sc reen Ur Phencyclidine S crn Ur Amphetamines Sc reen U Benzodiazepines Scrn Urine Cocaine Scre en U Marijuana (THC) Screen Ethyl Alcohol 07/07/20 07/07/20 07/07/20 13:42 13:42 12:15 WBC 15.4 H RBC 4.56 Hgb 14.2 Hct 42.8 MCV 93.9 MCH 31.1 MCHC 33.2 RDW 12.9 Plt Count 40 L MPV 11.9 H Neut % (Auto) 87.2 Lymph % (Auto) 7.9 [place] % (Auto) 4.0 Eos % (Auto) 0.1 Baso % (Auto) 0.3 Neut # (Auto) 13.47 H Lymph # (Auto) 1.2 [place] # (Auto) 0.6 Eos # (Auto) 0.0 Baso # (Auto) 0.0 Nucleated RBC % (a uto) 0.9 Nucleated RBCs # 0.1 PT INR APTT Sodium 144 Potassium 4.8 Chloride 109 H Carbon Dioxide 20 L Anion Gap 19.8 H BUN 15 Creatinine 0.7 GFR Calculation 91.8 Glucose 111 Calculated Osmolal ity 300 H Lactate Calcium 9.6 Magnesium Total Bilirubin 0.4 AST 24 ALT 16 Alkaline Phosphata se 93 Total Protein 7.7 Albumin 4.0 Globulin 3.7 Lipase 25 HCG, Qual Urine Color Urine Appearance Urine pH Ur Specific Gravit y Urine Protein Urine Glucose (UA) Urine Ketones Urine Blood Urine Nitrate Urine Bilirubin Urine Urobilinogen Ur Leukocyte [place]ecia ase Urine RBC Urine WBC Ur Squamous Epith Cells Amorphous Sediment Urine Bacteria Urine Opiates Scre en Positive H Ur Barbiturates Sc reen Negative Ur Phencyclidine S crn Negative Ur Amphetamines Sc reen Negative U Benzodiazepines Scrn Negative Urine Cocaine Scre en Negative U Marijuana (THC) Screen Negative Ethyl Alcohol < 10 07/07/20 12:15 WBC RBC Hgb Hct MCV MCH MCHC RDW Plt Count MPV Neut % (Auto) Lymph % (Auto) [place] % (Auto) Eos % (Auto) Baso % (Auto) Neut # (Auto) Lymph # (Auto) [place] # (Auto) Eos # (Auto) Baso # (Auto) Nucleated RBC % (a uto) Nucleated RBCs # PT INR APTT Sodium Potassium Chloride Carbon Dioxide Anion Gap BUN Creatinine GFR Calculation Glucose Calculated Osmolal ity Lactate Calcium Magnesium Total Bilirubin AST ALT Alkaline Phosphata se Total Protein Albumin Globulin Lipase HCG, Qual Urine Color Yellow Urine Appearance Sl hazy Urine pH 5 Ur Specific Gravit y 1.015 Urine Protein Neg Urine Glucose (UA) Norm Urine Ketones Negative Urine Blood Neg Urine Nitrate Negative Urine Bilirubin Neg Urine Urobilinogen Norm Ur Leukocyte Kecia ase Negative Urine RBC 0-4 H Urine WBC 5-10 H Ur Squamous Epith Cells 15-25 H Amorphous Sediment Not Reportable Urine Bacteria 3+ H Urine Opiates Scre en Ur Barbiturates Sc reen Ur Phencyclidine S crn Ur Amphetamines Sc reen U Benzodiazepines Scrn Urine Cocaine Scre en U Marijuana (THC) Screen Ethyl Alcohol Vitals: Last Vital Signs Temp 98.2 F 07/08/20 11:41 Pulse 56 L 07/08/20 11:41 Resp 17 07/08/20 11:41 BP 107/61 07/08/20 11:41 Pulse Ox 94 07/08/20 11:41 Discharge Plan Discharge Patient Disposition: Home Condition: Stable Prescriptions: New clonidine HCl 0.1 mg tablet 0.1 mg PO Q12H 30 Days Qty: 60 RF: 0 morphine 15 mg tablet 15 mg PO TID PRN (Reason: pain) 7 Days Qty: 21 RF: 0 Continued ibuprofen [IBU] 800 mg tablet 800 mg PO TID PRN (Reason: pain) Qty: 30 RF: 0 lisinopril-hydrochlorothiazide 20-25 mg Tablet 1 tab PO DAILY@11 RF: 0 duloxetine 60 mg Capsule,Delayed Release(Dr/Ec) 60 mg PO DAILY@11 RF: 0 Linzess 72 mcg Capsule 72 mcg PO DAILY PRN (Reason: IBS) RF: 0 Discharge Orders: Discharge Order (Routine); Ordered 07/08/20 Ordered By: Alonzo Hopper Referrals: Stefano Jordan MD [Physician] - 7-10 days (pain managment You have a follow up appointment at [facility] on @ 10:00am but you will need to be there no later then 09:15am to do paper work. [phone] [id number] , [place] [address]) Discharge Diet: Regular and Cardiac Discharge Activity: Resume usual activity Patient Instructions: Back Pain, Clonidine (By mouth), Morphine, Slow Release (By mouth), Opioid Withdrawal (GEN), Pain Management Activity Restrictions/Additional Instructions: -Please hydrate well -Please use morphine sparingly for chronic back pain -If any shortness of breath, changes in mentation, lightheadedness this could be an indication of opiate overdose and go to the emergency room or call 911 -Follow-up with general practitioner, and pain management You have a follow up appointment at [facility] on @ 10:00am but you will need to be there no later then 09:15am to do paper work. Discharge Attestations Time Spent in Discharge Care*: less than 30 min Quality Metrics Clinical Quality Measures During this hospital stay, did patient experience: None Coding Level of Care Code Acute Boiler Operators Supervisor for Chg Fwd Exam Comprehensive Diagnoses Acute narcotic withdrawal F11.23 Hypertension I15.8 Hypertension type: other secondary hypertension Thrombocytopenia D69.6
[2020-07-08 15:47] VITALS: BP 107/61; PULSE 56; RESP 17; TEMP 36.8; O2SAT 94
--- NOTE | 2020-07-08 17:38 | PC.RESP ---
SMOKING CESSATION INFORMATION SENT TO PATIENT.
--- NOTE | 2020-07-13 14:58 | PC.SOCIAL ---
Notified by Paula community dietitian in ED that patient has concern about pain management referral. Talked with Rosita and updated her it was entered in. She said to go ahead and send. Sent this referral to Anabela Becker. Called and updated patient.
== END 2020-07-08 15:15 | disposition home or self-care (01) ==
LOC: ER 19:26 → MEDSURG 20:41
PROVIDERS: Admitting Provider Hospitalist; Emergency Provider Family Medicine; Visit Provider Family Medicine
DX: F11.23 Opioid dependence with withdrawal (principal); I15.8 Other secondary hypertension; D69.6 Thrombocytopenia, unspecified; E78.5 Hyperlipidemia, unspecified; E66.9 Obesity, unspecified; Z68.39 Body mass index [BMI] 39.0-39.9, adult; F17.210 Nicotine dependence, cigarettes, uncomplicated
CPT/HCPCS: 36415; 80048; 80053; 80306; 80307; 80500; 81001; 83605; 83690; 83735; 84703; 85025; 85049; 85610; 85730; C9113; G0378; J0360; J1200; J2060; J2270; J2405; J7030; J8498; Q0164

== ENCOUNTER 2020-07-18 08:59 | Outpatient (CLI) | payer MEDICAID, SELFPAY ==
--- NOTE | 2020-07-18 09:09 | MR_ITS ---
WS: [id number] MRI RIGHT KNEE HISTORY: INTERNAL DERANGEMENT OF KNEE COMPARISON: 07/02/2020 Anterior cruciate ligament: Thickening and increased signal throughout the ACL. There are only a few anterior fibers identified. Posterior cruciate ligament: Intact. Medial collateral ligament: Intact. Posterior lateral corner structures: Intact. Medial menisci: Intact. Normal signal, size and shape. Lateral meniscus: Abnormal signal in the anterior horn seen only on 2 consecutive images suspicious b ut not diagnostic for radial tear. Extensor mechanism: Distal quadriceps tendon and patellar tendons are intact. Fluid and soft tissue: No joint effusion. Small Steele's cyst. Osseous and articular structures: Patellofemoral compartment: Normal. Medial compartment: Mild narrowing of the medial compartment. Surface irregularities involving the ca rtilage. No marrow edema or fracture. Lateral compartment: Very mild narrowing of the lateral compartment. No full-thickness cartilage defe cts. MR/MR knee RT wo con* [id number] IMPRESSION: 1. Mucoid degeneration versus partial tear ACL. 2. Suspicious but not diagnostic for radial tear in the anterior horn lateral meniscus. 3. Small Steele's cyst. 4. Mild narrowing of the medial compartment with surface irregularities involv ing the cartilage.
== END 2020-07-18 09:00 | disposition home or self-care (01) ==
LOC: RADWPI 09:03
PROVIDERS: PCP Nurse Practitioner Family; Visit Provider Nurse Practitioner Family
DX: M23.91 Unspecified internal derangement of right knee (principal); M71.21 Synovial cyst of popliteal space [Baker], right knee
CPT/HCPCS: 73721

== ENCOUNTER 2020-08-30 15:47 | Emergency (ER) | payer MEDICAID, SELFPAY ==
[2020-08-30 16:00] VITALS: PULSE 83; RESP 16; TEMP 36.7; O2SAT 99; BMI 41.5
--- NOTE | 2020-08-30 17:09 | W.ED.EXTPRO ---
HPI - Extremity Problem General: Chief complaint: Extremity Problem,Nontraumatic Stated complaint: leg swollen/warm to touch, history of DVT Time Seen by Provider: 08/30/20 17:09 History of Present Illness: HPI Narrative: Patient is a 40-year-old female comes to the ED with left leg swelling. Patient says that yesterday she noticed she had some left leg swelling and pain. Denies any trauma or injury to cause symptoms. Patient has a history of DVT and PE. On Saturday patient had to drive to [place] to drop her off to the airport and then drove back here to [place]. The next day is when she noticed she had some left leg swelling and pain. She rates her pain an 8 out of 10. Patient is not currently on any blood thinners. Denies any chest pain, shortness of breath or hemoptysis. Associated symptoms: Deny chest pain, fever(s) or rash Review of Systems Const: Denies: fever(s), chills or fatigue Eyes: Denies: change in vision or eye discomfort ENMT: Denies: throat pain, odynophagia, nasal discharge or nasal congestion Card: Denies: chest pain, palpitations, edema, swelling of feet/ankles, dyspnea on exertion or orthopnea Resp: Denies: dyspnea, productive cough or non-productive cough GI: Denies: abdominal pain, nausea, vomiting, diarrhea, constipation or hematochezia : Denies: flank pain, dysuria or hematuria Musc: Reports: extremity pain (left leg) and extremity swelling (left leg); Denies: neck pain or back pain Skin/Breast: Denies: rash or new lesions Neuro: Denies: headache(s), numbness in extremities or weakness in extremities [facility] PFSH: Medical History Chronic narcotic use ~ 2yrs, for back pain Dyslipidemia borderline by report, not on treatment History of pulmonary embolism post op, had DVT Hypertension Obesity BMI 39 Rosacea Surgical History History of back surgery (~2018) History of carpal tunnel release left History of D&C History of hysterectomy due to life threatening bleeding while on anticoagulation for PE/DVT History of laparoscopic adjustable gastric banding History of right knee surgery (~2008) patellar realignment History of tonsillectomy Family History Father Cancer pancreatic cancer Other Diabetes Heart disease Hypertension Social History Smoking and tobacco status: current every day smoker cigarettes [ Other cigarette details: pack per day ] Alcohol intake: never Lives independently: Yes Household members: spouse Current occupational status: disabled Female Reproductive History: Para: 3 Physical Exam Const: COMMON NORMALS: no acute distress, patient oriented x3 and alert GENERAL APPEARANCE: cooperative and comfortable HENMT: COMMON NORMALS: normocephalic HEAD & SCALP: normocephalic MOUTH: Normal oral and palatal mucosa present THROAT: posterior oropharynx normal and uvula midline Neck/C-Spine: COMMON NORMALS: supple GENERAL: Yes normal visual inspection Resp: COMMON NORMALS: normal respiratory effort, No retractions, No use of accessory muscles and clear to auscultation bilaterally AUSCULTATION: clear to auscultation bilaterally Cardio: COMMON NORMALS: regular rate, regular rhythm, S1 normal heart sound present, S2 normal heart sound present, No gallops present (Cardio), No clicks present (Cardio), No murmurs present (Cardio) and Peripheral pulses 2+ throughout RATE: regular rate RHYTHM: regular rhythm HEART SOUNDS: S1 normal heart sound present and S2 normal heart sound present PERIPHERAL PULSES: Peripheral pulses 2+ throughout GI: COMMON NORMALS: Normal to inspection, nondistended, normoactive bowel sounds present, Soft to palpation, non-tender and no masses PALPATION: Yes Soft to palpation : COMMON NORMALS: Yes no CVA tenderness BLADDER/KIDNEY EXAM: Yes no CVA tenderness Back/Pelvis: COMMON NORMALS: no CVA tenderness Extremity: GENERAL: Yes calf tenderness (Left calf tenderness.) and Yes edema (Left leg 1+ pitting edema.) Neuro: COMMON NORMALS: patient oriented x3 and moves all extremities SENSORIUM/ORIENTATION: Yes alert Skin: GENERAL SKIN EXAM: dry skin Course Vital Signs: Vital signs: Vital Signs Temperature 98.1 F 08/30/20 16:00 Pulse Rate 88 08/30/20 18:36 Respiratory Rate 20 H 08/30/20 18:36 Blood Pressure 146/94 08/30/20 18:36 Pulse Oximetry 97 08/30/20 18:36 MDM - Extremity (Nontraumatic) MDM Narrative: Medical decision making narrative: Patient is a 40-year-old female comes to the ED with left lower extremity edema and pain. Denies any trauma or injury. Patient has a history of DVT and current symptoms started after patient went on a long car ride to [place] and back. Exam shows a patient with some left leg 1+ pitting edema and calf tenderness. Lungs clear to auscultation bilaterally. Ultrasound venous duplex of left lower extremity showed no DVTs or blood clots seen. Patient was diagnosed with lower extremity edema left leg pain. She was discharged home and told to wear compression stockings and to rest and elevate left leg to help with swelling. Turn to ED precautions given. Follow-up with PCP in 7 to 10 days reevaluation. Patient understood agree with plan. Imaging Data^: US Vascular: Attestation: I personally reviewed and interpreted this imaging study as follows: Radiologist's impression: Ultrasound venous duplex of left lower extremity?prelim report no DVTs or blood clots seen. Discharge Plan Discharge Patient Disposition: Home Clinical Impression: Lower extremity edema, Left leg pain Condition: Stable Prescriptions: No Action morphine 30 mg capsule PO RF: 0 naproxen [Naprosyn] 500 mg tablet 500 mg PO BID Qty: 60 RF: 0 ibuprofen [IBU] 800 mg tablet 800 mg PO TID PRN (Reason: pain) Qty: 30 RF: 0 lisinopril-hydrochlorothiazide 20-25 mg Tablet 1 tab PO DAILY@11 RF: 0 duloxetine 60 mg Capsule,Delayed Release(Dr/Ec) 60 mg PO DAILY@11 RF: 0 Linzess 72 mcg Capsule 72 mcg PO DAILY PRN (Reason: IBS) RF: 0 Discharge Orders: Discharge ED (Routine); Ordered 08/30/20 Ordered By: Larry Pandya Referrals: Nevaeh Burt FNP [Primary Care Provider] - Discharge Diet: Regular Discharge Activity: Increase activity as tolerated Patient Instructions: Leg Edema (ED) Activity Restrictions/Additional Instructions: Follow-up with medical provider as directed in 7 to 10 days for reevaluation. Rest and elevate legs to help with swelling. Wear compression stockings throughout the day to help with swelling as well. Take [id number] ibuprofen or Tylenol for pain. Return to the ER or your medical provider if condition worsens. Please read and understand discharge instructions. If any questions, please ask. Coding Level of Care Code ED Spooler [employer] Strand for Chg Fwd Exam Comprehensive
--- NOTE | 2020-08-30 17:10 | USCV_ITS ---
Dolores Carlson Age: 40 Gender: F : 1980 Exam Date: 08/30/2020 17:19 Ordering Phys: Larry Pandya Technologist: Lonnie Fields Exam Location: [facility] [place] Indication: PAIN PROCEDURES: Venous duplex imaging was performed in only the left lower extremity. The following venous structures were evaluated: common femoral vein, profunda vein, proximal portion of the greater saphenous vein, superficial femoral vein, and the popliteal vein. In addition, the posterior tibial and peroneal trunk were evaluated. FINDINGS: Normal 2-D Doppler and augmentation and compressibility throughout the lower extremity venous structures. Additional imaging through the proximal calf veins also reveals no thrombus. Limited evaluation of the greater saphenous vein is patent with no thrombus.. CONCLUSIONS No evidence of left lower extremity DVT. Nico Morataya MD (Electronically Signed) Final Date: 31 August 2020 09:38 S
[2020-08-30 18:30] VITALS: RESP 20
[2020-08-30] MEDS: morphine 4 mg/mL SDV 1 mL IM (18:30)
[2020-08-30 18:36] VITALS: BP 146/94; PULSE 88; RESP 20; O2SAT 97
== END 2020-08-30 18:30 | disposition home or self-care (01) ==
PROVIDERS: Emergency Provider Physician Assistant; PCP Nurse Practitioner Family
DX: R60.0 Localized edema (principal); M79.605 Pain in left leg; E78.5 Hyperlipidemia, unspecified; I10 Essential (primary) hypertension; F17.210 Nicotine dependence, cigarettes, uncomplicated
CPT/HCPCS: 93971; 96372; 99283; J2270

== ENCOUNTER 2020-09-13 20:48 | Emergency (ER) | payer MEDICAID, SELFPAY ==
[2020-09-13 20:54] VITALS: BP 168/105; PULSE 79; RESP 18; TEMP 36.8; O2SAT 98; BMI 44.2
--- NOTE | 2020-09-13 22:11 | W.ED.BACK ---
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 She did no lifting. She states she had to stand for long period time. She had no injury. She states she has had chronic back pain in the past and used to be on regular morphine for her pain. She has been off morphine for several months. She is presently seeing a primary care doctor here and has been referred to pain management. She is not on pain management now. See nursing assessment MD elicited complaint: back pain Pertinent past history: prior back pain Timing: constant and intermittent Severity: moderate Similar Symptoms Previously: Yes Quality: sharp Location: lumbar spine Radiation: none Exacerbating factors: movement Relieving factors: none Context: unknown Associated symptoms: Reports no associated symptoms; Deny abdominal pain, chills, fever(s), nausea or vomiting Work related injury: No Review of Systems Const: Denies: fever(s) or chills Eyes: Denies: change in vision ENMT: Denies: throat pain Card: Denies: chest pain or palpitations Resp: Denies: dyspnea or wheezing GI: Denies: abdominal pain, nausea or vomiting : Denies: flank pain Musc: Reports: back pain; Denies: neck pain, extremity pain, extremity swelling or joint pain Skin/Breast: Denies: rash or pruritus Neuro: Denies: headache(s) or numbness in extremities Psych: Denies: anxiety Zach/Lymph: Denies: enlarged lymph nodes PFSH ED PFSH: Medical History Chronic narcotic use ~ 2yrs, for back pain Dyslipidemia borderline by report, not on treatment History of pulmonary embolism post op, had DVT Hypertension Obesity BMI 39 Rosacea Surgical History History of back surgery (~2018) History of carpal tunnel release left History of D&C History of hysterectomy due to life threatening bleeding while on anticoagulation for PE/DVT History of laparoscopic adjustable gastric banding History of right knee surgery (~2008) patellar realignment History of tonsillectomy Family History Father Cancer pancreatic cancer Other Diabetes Heart disease Hypertension Social History Smoking and tobacco status: current every day smoker cigarettes [ Other cigarette details: pack per day ] Alcohol intake: never Lives independently: Yes Household members: spouse Current occupational status: disabled Female Reproductive History: Para: 3 Physical Exam Const: COMMON NORMALS: no acute distress, patient oriented x3, no limitations and well nourished EXAM LIMITATIONS: altered mental status GENERAL APPEARANCE: cooperative HENMT: COMMON NORMALS: normocephalic and atraumatic HEAD & SCALP: normocephalic and atraumatic FACE & SINUS: normal facial exam Eye: COMMON NORMALS: EOMs intact bilaterally Neck/C-Spine: COMMON NORMALS: full ROM, no lymphadenopathy, supple and no meningeal signs GENERAL: Yes normal visual inspection Lymph: LYMPHATIC: no lymphadenopathy noted Chest: COMMONS NORMALS: normal inspection of the chest and normal palpation of entire chest wall CHEST: No Ecchymosis present and No rash Resp: COMMON NORMALS: normal respiratory effort, No retractions and clear to auscultation bilaterally EFFORT & INSPECTION: No respiratory distress AUSCULTATION: clear to auscultation bilaterally Cardio: COMMON NORMALS: regular rate, regular rhythm and Peripheral pulses 2+ throughout JUGULAR VENOUS DISTENTION: no JVD RATE: regular rate RHYTHM: regular rhythm PERIPHERAL PULSES: Peripheral pulses 2+ throughout GI: COMMON NORMALS: Normal to inspection, nondistended, normoactive bowel sounds present and non-tender : COMMON NORMALS: Yes no CVA tenderness BLADDER/KIDNEY EXAM: Yes no CVA tenderness Back/Pelvis: COMMON NORMALS: no CVA tenderness GENERAL BACK: Yes tenderness (Pain to the paraspinous muscles of the lumbar spine bilaterally. No deform) Extremity: COMMON NORMALS: normal to inspection, full ROM, capillary refill normal and no clubbing, cyanosis or edema Neuro: COMMON NORMALS: patient oriented x3, CN's II-XII intact bilaterally, no focal motor deficits and no sensory deficits noted MENINGEAL SIGNS: Yes no meningeal signs Psych: COMMON NORMALS: mental status grossly normal and Normal thought process present THOUGHT PROCESS: Normal thought process present Skin: COMMON NORMALS: no rashes or lesions noted and no wounds GENERAL SKIN EXAM: no rashes or lesions noted Course Vital Signs: Vital signs: Vital Signs Temperature 98.2 F 09/13/20 20:54 Pulse Rate 79 09/13/20 20:54 Respiratory Rate 18 09/13/20 20:54 Blood Pressure 168/105 09/13/20 20:54 Pulse Oximetry 98 09/13/20 20:54 MDM - Back Pain/Injury MDM Narrative: Medical decision making narrative: Chronic low back pain Discharge Plan Discharge Patient Disposition: Home Clinical Impression: Strain of lumbar region Qualifiers: Encounter type: subsequent encounter Qualified Code(s): S39.012D - Strain of muscle, fascia and tendon of lower back, subsequent encounter Chronic bilateral low back pain Qualifiers: Sciatica presence: without sciatica Qualified Code(s): M54.5 - Low back pain Condition: Stable Prescriptions: New diclofenac sodium 75 mg tablet,delayed release (DR/EC) 75 mg PO BID PRN (Reason: pain) Qty: 14 RF: 1 cyclobenzaprine 10 mg tablet 10 mg PO TID PRN (Reason: muscle spasm) Qty: 15 RF: 1 oxycodone 5 mg capsule 5 mg PO Q6H PRN (Reason: pain) Qty: 10 RF: 0 No Action morphine 30 mg capsule PO RF: 0 naproxen [Naprosyn] 500 mg tablet 500 mg PO BID Qty: 60 RF: 0 ibuprofen [IBU] 800 mg tablet 800 mg PO TID PRN (Reason: pain) Qty: 30 RF: 0 lisinopril-hydrochlorothiazide 20-25 mg Tablet 1 tab PO DAILY@11 RF: 0 duloxetine 60 mg Capsule,Delayed Release(Dr/Ec) 60 mg PO DAILY@11 RF: 0 Linzess 72 mcg Capsule 72 mcg PO DAILY PRN (Reason: IBS) RF: 0 Discharge Orders: Discharge ED (Routine); Ordered 09/13/20 Ordered By: Brayan Aceves Referrals: Nevaeh Burt FNP [Primary Care Provider] - Discharge Diet: Advance as tolerated Discharge Activity: Resume usual activity Patient Instructions: Opioid Safety Activity Restrictions/Additional Instructions: Follow-up with your primary care doctor for further pain management. Take diclofenac instead of ibuprofen or naproxen for pain. May use oxycodone for severe pain. May use Flexeril for muscle spasms. Stand Alone Forms: Work/School Release Coding Level of Care Code ED Supervisor [employer] for Zabrina Burgess
[2020-09-13 22:34] VITALS: RESP 18; O2SAT 97
[2020-09-13] MEDS: HYDROmorphone 1 mg/mL INJ 1 mL IM (22:34)
== END 2020-09-13 23:17 | disposition home or self-care (01) ==
PROVIDERS: Emergency Provider Family Medicine; PCP Nurse Practitioner Family
DX: S39.012A Strain of muscle, fascia and tendon of lower back, initial encounter (principal); G89.29 Other chronic pain; E78.5 Hyperlipidemia, unspecified; I10 Essential (primary) hypertension; Z86.711 Personal history of pulmonary embolism; F17.210 Nicotine dependence, cigarettes, uncomplicated; X50.9XXA Other and unspecified overexertion or strenuous movements or postures, initial encounter; Y99.0 Civilian activity done for income or pay
CPT/HCPCS: 96372; 99283; J1170

== ENCOUNTER 2020-09-16 20:56 | Emergency (ER) | payer MEDICAID, SELFPAY ==
[2020-09-16 21:10] VITALS: BP 196/88; PULSE 80; RESP 18; TEMP 36.6; O2SAT 97; BMI 42.9
--- NOTE | 2020-09-17 | W.ED.BACK ---
HPI - Back Pain/Injury General: Chief Complaint: Back Pain/Injury Stated Complaint: LOW BACK PAIN WORSE Time Seen by Provider: 09/16/20 23:56 Source: patient Mode of arrival: ambulatory Limitations: no limitations History of Present Illness: HPI Narrative: Patient is a 40-year-old female who presents to ED today with a complaint of chronic back pain. Patient tells me she has had chronic back pain for many many years. She tells me when pain first started she was treating conservatively with physical therapy and water aerobics. She states as the pain progressively worsened she began treating with anti-inflammatories, muscle relaxers and steroids. Eventually she required a referral to a neurosurgeon. She states the neurosurgeon subsequently performed a discectomy. She tells me she initially had relief following the surgery but only for a few months. She states pain became so severe and crippling that she then required a referral to pain management. Up until a few months ago she was taking p.o. morphine. Patient recently moved here from [place]. She has established with a primary care provider and had all of her records faxed. They referred her to our clock and watch hands painter, Dr. Shelton, and she states she has an appointment with him on September 20. Patient was seen at our facility a few days ago for similar symptoms. MD elicited complaint: back pain Pertinent past history: prior back pain Onset (ago): day(s) Timing: constant Severity: severe Pain scale (0-10): 9 Similar Symptoms Previously: Yes Location: lumbar spine Radiation: left leg below the knee and right leg below the knee Exacerbating factors: movement, walking, coughing/sneezing and lifting Relieving factors: none Associated symptoms: Reports no associated symptoms; Deny abdominal pain, dysuria, fever(s), nausea or vomiting Review of Systems Const: Denies: fever(s) Card: Denies: chest pain Resp: Denies: dyspnea GI: Denies: abdominal pain, nausea or vomiting : Denies: flank pain or dysuria Musc: Reports: back pain; Denies: neck pain, extremity pain, extremity swelling, joint pain or joint swelling Skin/Breast: Denies: rash Neuro: Reports: difficulty walking (secondary to pain); Denies: numbness in extremities, weakness in extremities or sensory changes PFS ED PFSH: Medical History Chronic narcotic use ~ 2yrs, for back pain Dyslipidemia borderline by report, not on treatment History of pulmonary embolism post op, had DVT Hypertension Obesity BMI 39 Rosacea Surgical History History of back surgery (~2018) History of carpal tunnel release left History of D&C History of hysterectomy due to life threatening bleeding while on anticoagulation for PE/DVT History of laparoscopic adjustable gastric banding History of right knee surgery (~2008) patellar realignment History of tonsillectomy Family History Father Cancer pancreatic cancer Other Diabetes Heart disease Hypertension Social History Smoking and tobacco status: current every day smoker cigarettes [ Other cigarette details: pack per day ] Alcohol intake: never Lives independently: Yes Household members: spouse Current occupational status: disabled Female Reproductive History: Para: 3 Physical Exam Const: COMMON NORMALS: no acute distress, patient oriented x3, no limitations and alert GENERAL APPEARANCE: cooperative and other (tearful) NUTRITIONAL APPEARANCE: obese ORIENTATION/CONSCIOUSNESS: Yes awake, Yes oriented to person, Yes oriented to place and Yes oriented to time Back/Pelvis: THORACIC SPINE/UPPER BACK: Yes normal to inspection and Yes thoracic ROM normal LUMBAR SPINE/LOWER BACK: Yes lumbar spinal tenderness Lumbar spinal tenderness location: L3, L4 and L5, Yes paraspinal muscle tenderness, No paraspinal muscle spasm, Yes straight leg raise positive right and Yes straight leg raise positive left PELVIS: Yes buttocks normal SACROILIAC JOINTS: Yes SI joints normal Neuro: COMMON NORMALS: patient oriented x3, moves all extremities, no focal motor deficits and no sensory deficits noted SENSORIUM/ORIENTATION: Yes alert, Yes oriented to person, Yes oriented to place and Yes oriented to time Skin: COMMON NORMALS: no rashes or lesions noted GENERAL SKIN EXAM: no rashes or lesions noted Course Vital Signs: Vital signs: Vital Signs Temperature 97.9 F 09/16/20 21:10 Pulse Rate 74 09/17/20 00:31 Respiratory Rate 18 09/17/20 00:38 Blood Pressure 157/111 09/17/20 00:31 Pulse Oximetry 97 09/17/20 00:31 MDM - Back Pain/Injury MDM Narrative: Medical decision making narrative: Patient feels better after IM meds here. She was given oxycodone on her previous visit. I told her I am not willing to write her for more of these from the ED. We agreed upon trying a medrol dose pack, zanaflex (as she has taken this previously with good results), and a small amount of tylenol 3s. Follow up with pain management as scheduled. Discharge Plan Discharge Patient Disposition: Home Clinical Impression: Chronic bilateral low back pain Qualifiers: Sciatica presence: with sciatica Sciatica laterality: bilateral sciatica Qualified Code(s): M54.42 - Lumbago with sciatica, left side Condition: Stable Prescriptions: New Medrol (Sharif) 4 mg tablets,dose pack See Rx Instructions .ROUTE .COMPLEX Qty: 21 RF: 0 Zanaflex 4 mg capsule 4 mg PO TID PRN (Reason: muscle spasticity) Qty: 20 RF: 0 acetaminophen-codeine 300-30 mg tablet 1 tab PO Q6H PRN (Reason: pain) Qty: 14 RF: 0 Discontinued morphine 30 mg capsule PO RF: 0 cyclobenzaprine 10 mg tablet 10 mg PO TID PRN (Reason: muscle spasm) Qty: 15 RF: 1 oxycodone 5 mg capsule 5 mg PO Q6H PRN (Reason: pain) Qty: 10 RF: 0 No Action naproxen [Naprosyn] 500 mg tablet 500 mg PO BID Qty: 60 RF: 0 diclofenac sodium 75 mg tablet,delayed release (DR/EC) 75 mg PO BID PRN (Reason: pain) Qty: 14 RF: 1 ibuprofen [IBU] 800 mg tablet 800 mg PO TID PRN (Reason: pain) Qty: 30 RF: 0 lisinopril-hydrochlorothiazide 20-25 mg Tablet 1 tab PO DAILY@11 RF: 0 duloxetine 60 mg Capsule,Delayed Release(Dr/Ec) 60 mg PO DAILY@11 RF: 0 Linzess 72 mcg Capsule 72 mcg PO DAILY PRN (Reason: IBS) RF: 0 Discharge Orders: Discharge ED (Routine); Ordered 09/17/20 Ordered By: Suzan Hoffamn Referrals: Nevaeh Burt FNP [Primary Care Provider] - Patient Instructions: Opioid Safety Activity Restrictions/Additional Instructions: [facility] is committed to fighting the nationwide opiate epidemic. We are providing ALL patients with information regarding opiate safety. If you received opiate pain medication during your stay or if you received a prescription for opiate pain medication-please review this handout. If not, you may disregard. Thank you. Coding Level of Care Code ED Spring Bender for Zabrina Fwd Exam Expanded Problem Focused
[2020-09-17 00:31] VITALS: BP 157/111; PULSE 74; RESP 17; O2SAT 97
[2020-09-17] MEDS: orphenadrine 30 mg/mL Inj 2 mL 60 MG IM (00:33)
[2020-09-17] MEDS: dexamethasone 10 mg/mL INJ 8 MG IM (00:36)
[2020-09-17 00:38] VITALS: RESP 18
[2020-09-17] MEDS: morphine 4 mg/mL SDV 1 mL IM (00:38)
== END 2020-09-17 01:20 | disposition home or self-care (01) ==
PROVIDERS: Emergency Provider Physician Assistant; PCP Nurse Practitioner Family
DX: M54.42 Lumbago with sciatica, left side (principal); G89.29 Other chronic pain; E78.5 Hyperlipidemia, unspecified; I10 Essential (primary) hypertension; F17.210 Nicotine dependence, cigarettes, uncomplicated
CPT/HCPCS: 96372; 99283; J1100; J2270; J2360

== ENCOUNTER → 2020-09-20 10:14 | Outpatient (BNVA) | payer MEDICAID, SELFPAY | PROVIDERS: PCP Nurse Practitioner Family; Referring Provider Family Medicine; Visit Provider Anesthesiology | DX: G89.29 Other chronic pain (principal); M54.42 Lumbago with sciatica, left side; M54.41 Lumbago with sciatica, right side; F17.210 Nicotine dependence, cigarettes, uncomplicated; Z98.890 Other specified postprocedural states; Z79.891 Long term (current) use of opiate analgesic; Z71.6 Tobacco abuse counseling | CPT/HCPCS: 99204 ==

== ENCOUNTER → 2020-10-14 10:15 | Outpatient (BNVA) | payer MEDICAID, SELFPAY | PROVIDERS: PCP Nurse Practitioner Family; Visit Provider Anesthesiology | DX: G89.29 Other chronic pain (principal); M54.41 Lumbago with sciatica, right side; M54.42 Lumbago with sciatica, left side; F17.210 Nicotine dependence, cigarettes, uncomplicated; Z98.890 Other specified postprocedural states; Z79.891 Long term (current) use of opiate analgesic | CPT/HCPCS: 99213 ==

== ENCOUNTER 2020-10-21 23:42 | Emergency (ER) | payer MEDICAID, SELFPAY ==
[2020-10-21 23:45] VITALS: BP 181/115; PULSE 68; RESP 18; TEMP 36.5; O2SAT 99; BMI 42.9
[2020-10-21] MEDS: fluorescein 1 mg Strip EYE-LEFT (23:53)
[2020-10-21] MEDS: tetracaine 0.5% Op Soln 4 mL Btl 1 DROP EYE-LEFT (23:54)
--- NOTE | 2020-10-22 00:02 | W.ED.EYEPROB ---
HPI - Eye Problem General: Chief complaint: Eye Problems Stated complaint: possible pink eye Time Seen by Provider: 10/21/20 23:46 Source: patient Mode of arrival: ambulatory Limitations: no limitations History of Present Illness: HPI Narrative: 40-year-old female states she has had erythema to her left eye over the day along with some slight pain. She states she has had a slight discharge as well. She denies any foreign bodies. She does not wear contacts. She denies any worsening improving factors. She denies any change in her vision. Associated symptoms: Denies fever(s), headache(s), nausea, neck pain or vomiting Review of Systems Const: Denies: fever(s), chills, body aches or change in appetite Eyes: Reports: eye discomfort and eye redness ENMT: Denies: throat pain or dental pain Card: Denies: chest pain Resp: Denies: dyspnea GI: Denies: abdominal pain, nausea, vomiting or diarrhea : Denies: dysuria Musc: Denies: neck pain or back pain Skin/Breast: Denies: rash Neuro: Denies: headache(s) Psych: Denies: depression Zach/Lymph: Denies: easy bruising All/Imm: Denies: urticaria PFSH ED PFSH: Medical History (Updated 10/21/20 @ 23:57 by Malinda Williamson MD) Chronic low back pain with sciatica Chronic narcotic use ~ 2yrs, for back pain Dyslipidemia borderline by report, not on treatment Encounter for long-term opiate analgesic use History of pulmonary embolism post op, had DVT Hypertension Obesity BMI 39 Opioid contract exists Rosacea Surgical History (Updated 09/20/20 @ 13:07 by Stefano Jordan MD) H/O laminectomy History of back surgery (~2017) History of carpal tunnel release left History of D&C History of hysterectomy due to life threatening bleeding while on anticoagulation for PE/DVT History of laparoscopic adjustable gastric banding History of right knee surgery (~2008) patellar realignment History of tonsillectomy Family History Father Cancer pancreatic cancer Other Diabetes Heart disease Hypertension Social History (Updated 10/14/20 @ 10:51 by Nelly Camara LPN) Smoking and tobacco status: current every day smoker cigarettes [ Other cigarette details: .5 pack per day ] Alcohol intake: never Lives independently: Yes Household members: spouse Current occupational status: disabled History of recent travel: No Female Reproductive History: Para: 3 Physical Exam Const: COMMON NORMALS: no acute distress, patient oriented x3 and healthy appearing HENMT: COMMON NORMALS: normocephalic and atraumatic HEAD & SCALP: normocephalic and atraumatic Eye: COMMON NORMALS: Equal, round and reactive pupils present and EOMs intact bilaterally PUPIL: Yes Equal, round and reactive pupils present OTHER: Conjunctivitis to left eye. No abrasion or ulcer noted on fluorescein exam pupils are equal and reactive Neck/C-Spine: COMMON NORMALS: full ROM and supple Chest: COMMONS NORMALS: normal inspection of the chest and normal palpation of entire chest wall Resp: COMMON NORMALS: normal respiratory effort, No retractions, No use of accessory muscles and clear to auscultation bilaterally AUSCULTATION: clear to auscultation bilaterally Cardio: COMMON NORMALS: regular rate, regular rhythm and No murmurs present (Cardio) RATE: regular rate RHYTHM: regular rhythm GI: COMMON NORMALS: Normal to inspection, nondistended, normoactive bowel sounds present, Soft to palpation, non-tender and no masses PALPATION: Yes Soft to palpation Extremity: COMMON NORMALS: normal to inspection and full ROM Neuro: COMMON NORMALS: patient oriented x3, moves all extremities and no focal motor deficits Psych: COMMON NORMALS: mental status grossly normal, Normal thought process present and cooperative THOUGHT PROCESS: Normal thought process present Skin: COMMON NORMALS: no rashes or lesions noted and no wounds GENERAL SKIN EXAM: no rashes or lesions noted Course Vital Signs: Vital signs: Vital Signs Temperature 97.7 F 10/21/20 23:45 Pulse Rate 68 10/21/20 23:45 Respiratory Rate 18 10/21/20 23:45 Blood Pressure 181/115 10/21/20 23:45 Pulse Oximetry 99 10/21/20 23:45 MDM - Eye Problem MDM Narrative: Medical decision making narrative: Patient presents with conjunctivitis to the left eye. She has no signs of abrasion or ulcer or foreign body. Will place on eyedrops she is stable for discharge and return if worsening. She has no visual changes and no signs of acute angle glaucoma. Discharge Plan Discharge Patient Disposition: Home Clinical Impression: Bacterial conjunctivitis Condition: Stable Prescriptions: New Ocuflox 0.3 % drops 1 drp ophthalmic (eye) Q6H 5 Days RF: 0 No Action morphine 15 mg tablet 15 mg PO TID PRN (Reason: pain) 7 Days Qty: 21 RF: 0 morphine 15 mg tablet 15 mg PO TID PRN (Reason: pain) 23 Days Qty: 69 RF: 0 pregabalin [Lyrica] 50 mg capsule 50 mg PO TID 30 Days Qty: 90 RF: 0 Zanaflex 4 mg capsule 4 mg PO TID PRN (Reason: muscle spasticity) Qty: 20 RF: 0 acetaminophen-codeine 300-30 mg tablet 1 tab PO Q6H PRN (Reason: pain) Qty: 14 RF: 0 lisinopril-hydrochlorothiazide 20-25 mg Tablet 1 tab PO DAILY@11 RF: 0 duloxetine 60 mg Capsule,Delayed Release(Dr/Ec) 60 mg PO DAILY@11 RF: 0 Linzess 72 mcg Capsule 72 mcg PO DAILY PRN (Reason: IBS) RF: 0 Discharge Orders: Discharge ED (Routine); Ordered 10/21/20 Ordered By: Malinda Williamson Referrals: Nevaeh Burt FNP [Primary Care Provider] - 1-3 days Discharge Diet: Advance as tolerated Discharge Activity: Resume usual activity Patient Instructions: Conjunctivitis (ED) Stand Alone Forms: Work/School Release Coding Level of Care Code ED Collect On Delivery Clerk for Zabrina Burgess
[2020-10-22] MEDS: ofloxacin 0.3% Op Soln 5 mL Btl 2 DROP EYE-LEFT (00:03)
[2020-10-22 00:06] VITALS: BP 132/94; PULSE 66; RESP 18; O2SAT 97
== END 2020-10-22 00:08 | disposition home or self-care (01) ==
PROVIDERS: Emergency Provider Emergency Medicine; PCP Nurse Practitioner Family
DX: H10.89 Other conjunctivitis (principal); E78.5 Hyperlipidemia, unspecified; I10 Essential (primary) hypertension; F17.210 Nicotine dependence, cigarettes, uncomplicated
CPT/HCPCS: 99283

== ENCOUNTER → 2020-10-28 14:13 | Outpatient (BNVA) | payer MEDICAID, SELFPAY | PROVIDERS: PCP Nurse Practitioner Family; Visit Provider Anesthesiology | DX: G89.29 Other chronic pain (principal); M54.40 Lumbago with sciatica, unspecified side; F17.210 Nicotine dependence, cigarettes, uncomplicated; Z98.890 Other specified postprocedural states; Z79.891 Long term (current) use of opiate analgesic | CPT/HCPCS: 99212; 99213 ==

== ENCOUNTER → 2020-11-09 08:51 | Outpatient (BNVA) | payer MEDICAID, SELFPAY | PROVIDERS: PCP Nurse Practitioner Family; Visit Provider Anesthesiology | DX: G89.29 Other chronic pain (principal); M54.42 Lumbago with sciatica, left side; M54.41 Lumbago with sciatica, right side; Z98.890 Other specified postprocedural states; Z79.891 Long term (current) use of opiate analgesic; F17.210 Nicotine dependence, cigarettes, uncomplicated | CPT/HCPCS: 99213 ==

== ENCOUNTER 2020-12-18 20:09 | Emergency (ER) | payer MEDICAID, SELFPAY ==
[2020-12-18 20:15] VITALS: BP 187/98; PULSE 81; RESP 20; TEMP 36.8; O2SAT 98; BMI 42.0
--- NOTE | 2020-12-18 20:28 | ED_ITS ---
HPI - Back Pain/Injury General: Chief Complaint: Back Pain/Injury Stated Complaint: back injury Time Seen by Provider: 12/18/20 20:25 History of Present Illness: HPI Narrative: 40-year-old female comes in today after falling and injuring her low back last night. Patient reports tripping and falling against her bed hitting her right hip against the bed frame somehow. Patient has been able to ambulate but has increasing back and discomfort to that area. Patient does have chronic back pain that she sees a pain specialist and receives morphine IR for. MD elicited complaint: fall Review of Systems General: Reports: 10 or more systems reviewed and unremarkable except in HPI and below Musc: Reports: back pain PFSH ED PFSH: Medical History Chronic low back pain with sciatica Chronic narcotic use ~ 2yrs, for back pain Dyslipidemia borderline by report, not on treatment Encounter for long-term opiate analgesic use History of pulmonary embolism post op, had DVT Hypertension Obesity BMI 39 Opioid contract exists Rosacea Surgical History H/O laminectomy History of back surgery (~2017) History of carpal tunnel release left History of D&C History of hysterectomy due to life threatening bleeding while on anticoagulation for PE/DVT History of laparoscopic adjustable gastric banding History of right knee surgery (~2008) patellar realignment History of tonsillectomy Family History Father Cancer pancreatic cancer Other Diabetes Heart disease Hypertension Social History (Updated 11/09/20 @ 09:14 by Alyssa Rudolph LPN) Smoking and tobacco status: current every day smoker cigarettes [ Other cigarette details: .5 pack per day ] Alcohol intake: never Lives independently: Yes Household members: spouse Current occupational status: disabled History of recent travel: No Female Reproductive History: Para: 3 Physical Exam Const: COMMON NORMALS: no acute distress and patient oriented x3 GENERAL APPEARANCE: cooperative HENMT: COMMON NORMALS: normocephalic and Normal external nose present HEAD & SCALP: normal to inspection and normocephalic NOSE: Normal external nose present MOUTH: Normal oral and palatal mucosa present Eye: GENERAL EYE: appearance normal, both eyes and all related structures Neck/C-Spine: COMMON NORMALS: full ROM Chest: COMMONS NORMALS: normal inspection of the chest Resp: COMMON NORMALS: normal respiratory effort EFFORT & INSPECTION: Yes able to speak in complete sentences Cardio: COMMON NORMALS: regular rate and regular rhythm RATE: regular rate RHYTHM: regular rhythm GI: COMMON NORMALS: non-tender Back/Pelvis: OTHER: Tenderness is noted to the right hip area. No visualized contusion or abrasion is noted to the area. Extremity: COMMON NORMALS: normal to inspection Neuro: COMMON NORMALS: patient oriented x3 and moves all extremities Psych: COMMON NORMALS: mental status grossly normal and cooperative Skin: COMMON NORMALS: no rashes or lesions noted GENERAL SKIN EXAM: no rashes or lesions noted Course Vital Signs: Vital signs: Vital Signs Temperature 98.3 F 12/18/20 20:15 Pulse Rate 73 12/18/20 21:09 Respiratory Rate 18 12/18/20 21:09 Blood Pressure 158/75 12/18/20 21:09 Pulse Oximetry 96 12/18/20 21:09 MDM - Back Pain/Injury MDM Narrative: Medical decision making narrative: Patient comes in for evaluation after a fall last night. Patient reports low back pain and right hip pain. On exam patient is ambulatory but has some tenderness noted to the right lower back. Vital signs are normal. Differential diagnosis includes but not limited to exacerbation of chronic back pain, fall, fracture. X-ray notes no obvious new injury. Patient does have degenerative disc disease in the low ba ck. Reviewed exam with patient with recommendations for treatment and follow- up. Patient reported understanding agreed to plan. Patient was given total of 8 mg of morphine for her pain control. Discharge Plan Discharge Patient Disposition: Home Clinical Impression: Opioid contract exists, Chronic narcotic use Fall Qualifiers: Encounter type: initial encounter Qualified Code(s): W19.XXXA - Unspecified fall, initial encounter Low back pain Qualifiers: Chronicity: unspecified Back pain laterality: right Sciatica presence: without sciatica Qualified Code(s): M54.5 - Low back pain Condition: Stable Prescriptions: No Action morphine 15 mg tablet 15 mg PO TID PRN (Reason: pain) 23 Days Qty: 69 RF: 0 sumatriptan succinate 50 mg tablet 50 mg PO Q2H PRNRF: 0 morphine 15 mg tablet 15 mg PO TID PRN (Reason: pain) 30 Days Qty: 90 RF: 0 pregabalin [Lyrica] 50 mg capsule 50 mg PO TID 30 Days Qty: 90 RF: 0 Zanaflex 4 mg capsule 4 mg PO TID PRN (Reason: muscle spasticity) 30 Days Qty: 90 RF: 0 lisinopril-hydrochlorothiazide 20-25 mg Tablet 1 tab PO DAILY@11 RF: 0 duloxetine 60 mg Capsule,Delayed Release(Dr/Ec) 60 mg PO DAILY@11 RF: 0 Linzess 72 mcg Capsule 72 mcg PO DAILY PRN (Reason: IBS) RF: 0 Discharge Orders: Discharge ED (Routine); Ordered 12/18/20 Ordered By: Delfino Silva Referrals: Nevaeh Burt FNP [Primary Care Provider] - Discharge Diet: Usual diet Discharge Activity: Increase activity as tolerated Patient Instructions: Acute Low Back Pain (ED), Opioid Safety Activity Restrictions/Additional Instructions: Activity as tolerated. Gentle stretching and range of motion exercises. Follow-up with primary care and specialist office tomorrow for further consideration of refills for medication. Return to the ER for new concerns or worsening symptoms. Coding Level of Care Code ED Director Talent Acquisition for Zabrina Fwd Exam Comprehensive
--- NOTE | 2020-12-18 20:36 | XRR_ITS ---
PROCEDURE INFORMATION: Exam: XR Lumbosacral Spine Exam date and time: 12/18/2020 8:36 PM Age: 40 years old Clinical indication: Injury or trauma; Blunt trauma (contusions or hematomas); Prior surgery; Surgery date: 6+ months; Surgery type: Lami; Patient HX: C/O lbp after trip and fall last night TECHNIQUE: Imaging protocol: XR of the lumbosacral spine. Views: 2 or 3 views. COMPARISON: [place] [id number] 08/27/2016 1:51 AM FINDINGS: Bones/joints: Moderate to severe L4/5 and L5/S1 disc space narrowing. Mild to lower lumbar spine productive degenerative endplate changes. Soft tissues: Unremarkable. Other findings: Constipation. XR/XR lumbar spine 2-3V* [id number] IMPRESSION: 1. Moderate to severe L4/5 and L5/S1 disc space narrowing. 2. Mild to lower lumbar spine productive degenerative endplate changes. 3. Constipation.
[2020-12-18 20:51] VITALS: RESP 18
[2020-12-18] MEDS: morphine 4 mg/mL SDV 1 mL IM ×2 (20:51→21:44)
[2020-12-18 21:09] VITALS: BP 158/75; PULSE 73; RESP 18; O2SAT 96
[2020-12-18 21:44] VITALS: RESP 18
[2020-12-18 21:48] VITALS: BP 121/71; PULSE 95; RESP 76; O2SAT 95
== END 2020-12-18 21:50 | disposition home or self-care (01) ==
PROVIDERS: Emergency Provider Nurse Practitioner Family; PCP Nurse Practitioner Family
DX: M54.5 Low back pain (principal); E78.5 Hyperlipidemia, unspecified; I10 Essential (primary) hypertension; E66.9 Obesity, unspecified; Z68.41 Body mass index [BMI] 40.0-44.9, adult; F17.210 Nicotine dependence, cigarettes, uncomplicated; Z79.891 Long term (current) use of opiate analgesic
CPT/HCPCS: 72100; 96372; 99283; J2270

== ENCOUNTER → 2020-12-28 14:26 | Outpatient (BNVA) | payer MEDICAID, SELFPAY | PROVIDERS: PCP Nurse Practitioner Family; Visit Provider Anesthesiology | DX: G89.29 Other chronic pain (principal); M54.42 Lumbago with sciatica, left side; M54.41 Lumbago with sciatica, right side; Z98.890 Other specified postprocedural states; Z79.891 Long term (current) use of opiate analgesic; F17.210 Nicotine dependence, cigarettes, uncomplicated | CPT/HCPCS: 99213 ==

== ENCOUNTER 2021-02-12 | Emergency (ER) | payer MEDICAID, SELFPAY ==
[2021-02-12 00:12] VITALS: BP 170/118; PULSE 82; RESP 24; TEMP 36.8; O2SAT 98; BMI 41.5
--- NOTE | 2021-02-12 00:18 | W.ED.BACK ---
HPI - Back Pain/Injury General: Chief Complaint: Back Pain/Injury Stated Complaint: Lower Back Pain Time Seen by Provider: 02/12/21 00:17 History of Present Illness: HPI Narrative: Patient reports this evening she was at home and she got into the shower and when getting out she felt a pop in her back. Since then patient has been having some increased pain and discomfort to her back. Patient had been out of her morphine for the past few days. Patient states that she routinely goes to the pain clinic but had to be an [place] and was not able to get return for her appointment. Patient is going to contact her pain specialist office on Saturday. Review of Systems General: Reports: 10 or more systems reviewed and unremarkable except in HPI and below Musc: Reports: other (Low back pain) PFSH ED PFSH: Medical History Chronic low back pain with sciatica Chronic narcotic use ~ 2yrs, for back pain Dyslipidemia borderline by report, not on treatment Encounter for long-term opiate analgesic use History of pulmonary embolism post op, had DVT Hypertension Obesity BMI 39 Opioid contract exists Rosacea Surgical History H/O laminectomy History of back surgery (~2017) History of carpal tunnel release left History of D&C History of hysterectomy due to life threatening bleeding while on anticoagulation for PE/DVT History of laparoscopic adjustable gastric banding History of right knee surgery (~2008) patellar realignment History of tonsillectomy Family History Father Cancer pancreatic cancer Other Diabetes Heart disease Hypertension Social History (Updated 12/28/20 @ 15:12 by Alyssa Rudolph LPN) Smoking and tobacco status: current every day smoker cigarettes [ Other cigarette details: .5 pack per day ] Alcohol intake: never Lives independently: Yes Household members: spouse Current occupational status: disabled History of recent travel: No Female Reproductive History: Para: 3 Physical Exam Const: COMMON NORMALS: no acute distress and patient oriented x3 GENERAL APPEARANCE: cooperative HENMT: COMMON NORMALS: normocephalic and Normal external nose present HEAD & SCALP: normal to inspection and normocephalic NOSE: Normal external nose present Eye: GENERAL EYE: appearance normal, both eyes and all related structures Neck/C-Spine: COMMON NORMALS: full ROM Chest: COMMONS NORMALS: normal inspection of the chest Resp: COMMON NORMALS: normal respiratory effort EFFORT & INSPECTION: Yes able to speak in complete sentences Cardio: COMMON NORMALS: regular rate and regular rhythm RATE: regular rate RHYTHM: regular rhythm GI: COMMON NORMALS: non-tender Back/Pelvis: LUMBAR SPINE/LOWER BACK: Yes paraspinal muscle tenderness Lumbar paraspinal muscle tenderness: left and Yes paraspinal muscle spasm Lumbar paraspinal muscle spasm: left Extremity: COMMON NORMALS: normal to inspection Neuro: COMMON NORMALS: patient oriented x3 and moves all extremities Psych: COMMON NORMALS: mental status grossly normal and cooperative Skin: COMMON NORMALS: no rashes or lesions noted GENERAL SKIN EXAM: no rashes or lesions noted Course Vital Signs: Vital signs: Vital Signs Temperature 98.2 F 02/12/21 00:12 Pulse Rate 82 02/12/21 00:12 Respiratory Rate 24 H 02/12/21 00:12 Blood Pressure 170/118 02/12/21 00:12 Pulse Oximetry 98 02/12/21 00:12 MDM - Back Pain/Injury MDM Narrative: Medical decision making narrative: Patient comes in today for complaints of low back pain. Patient was getting out of the shower when she twisted feeling a pop in her lower back. On exam patient has muscle tenderness and tightness to the left lower back. Patient moves extremities well. Vital signs are normal except for some elevated blood pressure. Differential diagnosis includes intervertebral disc disease, facet arthropathy, muscle strain. Patient denies any falls. Suspect patient probably has a muscle strain. Patient is out of her morphine I told her I could not refill it at this time she would need to follow-up with her pain critical care physician assistant. Patient was not seeking refill she just needs something for the pain tonight. We will give her a dose of morphine IM and a dose of orphenadrine. Patient was encouraged to drink plenty of fluids follow-up with pain critical care physician assistant on Saturday. Return to the ER as needed. Discharge Plan Discharge Patient Disposition: Home Clinical Impression: Opioid contract exists Strain of lumbar region Qualifiers: Encounter type: initial encounter Qualified Code(s): S39.012A - Strain of muscle, fascia and tendon of lower back, initial encounter Condition: Stable Prescriptions: No Action morphine 15 mg tablet 15 mg PO TID PRN (Reason: pain) 30 Days Qty: 90 RF: 0 Zanaflex 4 mg capsule 4 mg PO TID PRN (Reason: muscle spasticity) 30 Days Qty: 90 RF: 0 sumatriptan succinate 50 mg tablet 50 mg PO Q2H PRNRF: 0 morphine 15 mg tablet 15 mg PO TID PRN (Reason: pain) 7 Days Qty: 21 RF: 0 lisinopril-hydrochlorothiazide 20-25 mg Tablet 1 tab PO DAILY@11 RF: 0 duloxetine 60 mg Capsule,Delayed Release(Dr/Ec) 60 mg PO DAILY@11 RF: 0 Linzess 72 mcg Capsule 72 mcg PO DAILY PRN (Reason: IBS) RF: 0 Discharge Orders: Discharge ED (Routine); Ordered 02/12/21 Ordered By: Delfino Silva Referrals: Nevaeh Burt FNP [Primary Care Provider] - Discharge Diet: Usual diet Discharge Activity: Increase activity as tolerated Patient Instructions: Low Back Strain (ED), Opioid Safety Activity Restrictions/Additional Instructions: Activity as tolerated. Use medication as directed. Follow-up with pain critical care physician assistant for further treatment. Return to the ER for new concerns. Coding Level of Care Code ED Agent Telegrapher for Zabrina Burgess
[2021-02-12 00:55] VITALS: RESP 20; O2SAT 99
[2021-02-12] MEDS: orphenadrine 30 mg/mL Inj 2 mL 60 MG IM (00:55)
[2021-02-12] MEDS: morphine 4 mg/mL SDV 1 mL 8 MG IM (00:55)
[2021-02-12 01:04] VITALS: BP 151/82; PULSE 79; RESP 22; O2SAT 98
== END 2021-02-12 01:02 | disposition home or self-care (01) ==
PROVIDERS: Emergency Provider Nurse Practitioner Family; PCP Nurse Practitioner Family
DX: S39.012A Strain of muscle, fascia and tendon of lower back, initial encounter (principal); Z79.891 Long term (current) use of opiate analgesic; E78.5 Hyperlipidemia, unspecified; I10 Essential (primary) hypertension; Z86.711 Personal history of pulmonary embolism; F17.210 Nicotine dependence, cigarettes, uncomplicated; X58.XXXA Exposure to other specified factors, initial encounter
CPT/HCPCS: 96372; 99283; J2270; J2360

== ENCOUNTER 2021-02-27 19:19 | Emergency (ER) | payer MEDICAID, SELFPAY ==
[2021-02-27 19:53] VITALS: BP 129/91; PULSE 71; RESP 18; TEMP 36.8; O2SAT 98; BMI 39.9
--- NOTE | 2021-02-27 21:27 | PC.NURSE ---
Patient reports to staff that right leg is hurting more. Right leg is elevated. Pulses present and cap refill less than 3 seconds.
--- NOTE | 2021-02-27 22:11 | W.ED.EXTPRO ---
Documented by User: BLANQUITA Gross 02/27/21 23:25 HPI - Extremity Problem General: Chief complaint: Extremity Problem,Nontraumatic Stated complaint: Left leg swollen an painful, cp Time Seen by Provider: 02/27/21 22:11 History of Present Illness: HPI Narrative: 40-year-old female comes in today with complaints of left lower extremity pain. Patient reports increased swelling and calf discomfort for the last 2 days. Patient is concerned due to her history of DVT and PE. Patient appears well. Patient appears no acute distress. Patient does also have a history of chronic low back pain. Review of Systems General: Reports: 10 or more systems reviewed and unremarkable except in HPI and below Musc: Reports: other (Left lower leg pain) PFS ED PFSH: Medical History Chronic low back pain with sciatica Chronic narcotic use ~ 2yrs, for back pain Dyslipidemia borderline by report, not on treatment Encounter for long-term opiate analgesic use History of pulmonary embolism post op, had DVT Hypertension Obesity BMI 39 Opioid contract exists Rosacea Surgical History H/O laminectomy History of back surgery (~2018) History of carpal tunnel release left History of D&C History of hysterectomy due to life threatening bleeding while on anticoagulation for PE/DVT History of laparoscopic adjustable gastric banding History of right knee surgery (~2008) patellar realignment History of tonsillectomy Family History Father Cancer pancreatic cancer Other Diabetes Heart disease Hypertension Social History (Updated 12/28/20 @ 15:12 by Alyssa Rudolph LPN) Smoking and tobacco status: current every day smoker cigarettes [ Other cigarette details: .5 pack per day ] Alcohol intake: never Lives independently: Yes Household members: spouse Current occupational status: disabled History of recent travel: No Female Reproductive History: Para: 3 Physical Exam Const: COMMON NORMALS: no acute distress and patient oriented x3 GENERAL APPEARANCE: cooperative HENMT: COMMON NORMALS: normocephalic and Normal external nose present HEAD & SCALP: normal to inspection and normocephalic NOSE: Normal external nose present MOUTH: Normal oral and palatal mucosa present Eye: GENERAL EYE: appearance normal, both eyes and all related structures Neck/C-Spine: COMMON NORMALS: full ROM Chest: COMMONS NORMALS: normal inspection of the chest Resp: COMMON NORMALS: normal respiratory effort EFFORT & INSPECTION: Yes able to speak in complete sentences Cardio: COMMON NORMALS: regular rate and regular rhythm RATE: regular rate RHYTHM: regular rhythm GI: COMMON NORMALS: non-tender : COMMON NORMALS: Yes no CVA tenderness BLADDER/KIDNEY EXAM: Yes no CVA tenderness Back/Pelvis: COMMON NORMALS: no CVA tenderness and thoracic and lumbar spine normal to inspection Extremity: NARRATIVE EXTREMITY EXAM: Tenderness noted in the calf of the left lower leg. Also some palpable tenderness in the posterior knee of the left lower extremity. Left lower extremity is slightly larger than the right. No redness is noted. Positive pulses bilaterally. Neuro: COMMON NORMALS: patient oriented x3 and moves all extremities Psych: COMMON NORMALS: mental status grossly normal and cooperative Skin: COMMON NORMALS: no rashes or lesions noted GENERAL SKIN EXAM: no rashes or lesions noted Course Vital Signs: Vital signs: Vital Signs Temperature 98.3 F 02/27/21 19:53 Pulse Rate 79 02/27/21 23:51 Respiratory Rate 20 H 02/27/21 23:51 Blood Pressure 161/82 02/27/21 23:51 Pulse Oximetry 97 02/27/21 23:51 MDM - Extremity (Nontraumatic) MDM Narrative: Medical decision making narrative: Patient comes in today for complaints of left lower leg pain with swelling. Patient reports increased swelling over the last 2 to 3 days. Patient has a history of DVT and was concerned she might be developing a blood clot. On exam respirations are even lungs are clear to auscultation. Vital signs are normal. Patient does have some increased circumference in the calf of the leg with tenderness in the calf. Differential diagnosis includes dependent edema, DVT, musculoskeletal pain. Ultrasound of the leg indicated no DVT. Patient was given 1 tablet of hydrocodone for pain. Patient was encouraged to follow-up with primary care for further evaluation and treatment. No signs of PE or other serious illness was noted. Patient was recommended to monitor for fever, redness, or worsening pain and follow-up with primary care or return to the ER. Patient reported understanding and agreed to plan. Discharge Plan Discharge Patient Disposition: Home Clinical Impression: Pain in left lower leg, Dependent edema Condition: Stable Prescriptions: New hydrocodone-acetaminophen 5-325 mg tablet 1 tab PO Q8H PRN (Reason: pain) Qty: 7 RF: 0 No Action morphine 15 mg tablet 15 mg PO TID PRN (Reason: pain) 30 Days Qty: 90 RF: 0 Zanaflex 4 mg capsule 4 mg PO TID PRN (Reason: muscle spasticity) 30 Days Qty: 90 RF: 0 sumatriptan succinate 50 mg tablet 50 mg PO Q2H PRNRF: 0 morphine 15 mg tablet 15 mg PO TID PRN (Reason: pain) 7 Days Qty: 21 RF: 0 lisinopril-hydrochlorothiazide 20-25 mg Tablet 1 tab PO DAILY@11 RF: 0 duloxetine 60 mg Capsule,Delayed Release(Dr/Ec) 60 mg PO DAILY@11 RF: 0 Linzess 72 mcg Capsule 72 mcg PO DAILY PRN (Reason: IBS) RF: 0 Discharge Orders: Discharge ED (Routine); Ordered 02/27/21 Ordered By: Delfino Silva Referrals: Nevaeh Burt FNP [Primary Care Provider] - Discharge Diet: Usual diet Discharge Activity: Increase activity as tolerated Patient Instructions: Dependent Edema, Leg Pain (ED), Opioid Safety Activity Restrictions/Additional Instructions: Home and rest. Activity as tolerated. Monitor for redness and fever. Drink plenty of water with medication. Follow-up with primary care for further instruction. Return to the ER for new concerns. Coding Level of Care Code ED Accounts Payables Clerk for Chg Fwd Exam Comprehensive Documented by User: Norma Pires MD 03/03/21 20:06 HPI - Extremity Problem General: Chief complaint: Extremity Problem,Nontraumatic Stated complaint: Left leg swollen an painful, cp Time Seen by Provider: 02/27/21 22:11 PFSH ED PFSH: Medical History Chronic low back pain with sciatica Chronic narcotic use ~ 2yrs, for back pain Dyslipidemia borderline by report, not on treatment Encounter for long-term opiate analgesic use History of pulmonary embolism post op, had DVT Hypertension Obesity BMI 39 Opioid contract exists Rosacea Surgical History H/O laminectomy History of back surgery (~2017) History of carpal tunnel release left History of D&C History of hysterectomy due to life threatening bleeding while on anticoagulation for PE/DVT History of laparoscopic adjustable gastric banding History of right knee surgery (~2008) patellar realignment History of tonsillectomy Family History Father Cancer pancreatic cancer Other Diabetes Heart disease Hypertension Social History (Updated 12/28/20 @ 15:12 by Alyssa Rudolph LPN) Smoking and tobacco status: current every day smoker cigarettes [ Other cigarette details: .5 pack per day ] Alcohol intake: never Lives independently: Yes Household members: spouse Current occupational status: disabled History of recent travel: No Course Vital Signs: Vital signs: Vital Signs Temperature 98.3 F 02/27/21 19:53 Pulse Rate 79 02/27/21 23:51 Respiratory Rate 20 H 02/27/21 23:51 Blood Pressure 161/82 02/27/21 23:51 Pulse Oximetry 97 02/27/21 23:51 Discharge Plan Discharge Patient Disposition: Home Clinical Impression: Pain in left lower leg, Dependent edema Condition: Stable Prescriptions: New hydrocodone-acetaminophen 5-325 mg tablet 1 tab PO Q8H PRN (Reason: pain) Qty: 7 RF: 0 No Action morphine 15 mg tablet 15 mg PO TID PRN (Reason: pain) 30 Days Qty: 90 RF: 0 Zanaflex 4 mg capsule 4 mg PO TID PRN (Reason: muscle spasticity) 30 Days Qty: 90 RF: 0 sumatriptan succinate 50 mg tablet 50 mg PO Q2H PRNRF: 0 morphine 15 mg tablet 15 mg PO TID PRN (Reason: pain) 7 Days Qty: 21 RF: 0 lisinopril-hydrochlorothiazide 20-25 mg Tablet 1 tab PO DAILY@11 RF: 0 duloxetine 60 mg Capsule,Delayed Release(Dr/Ec) 60 mg PO DAILY@11 RF: 0 Linzess 72 mcg Capsule 72 mcg PO DAILY PRN (Reason: IBS) RF: 0 Discharge Orders: Discharge ED (Routine); Ordered 02/27/21 Ordered By: Delfino Silva Referrals: Nevaeh Burt FNP [Primary Care Provider] - Discharge Diet: Usual diet Discharge Activity: Increase activity as tolerated Patient Instructions: Dependent Edema, Leg Pain (ED), Opioid Safety Activity Restrictions/Additional Instructions: Home and rest. Activity as tolerated. Monitor for redness and fever. Drink plenty of water with medication. Follow-up with primary care for further instruction. Return to the ER for new concerns. Coding Level of Care Code ED Accounts Payables Clerk for Zabrina Fwd Exam Comprehensive
--- NOTE | 2021-02-27 22:16 | USR_ITS ---
PROCEDURE INFORMATION: Exam: US Duplex Left Lower Extremity Veins, Limited Exam date and time: 02/27/2021 10:16 PM Age: 40 years old Clinical indication: Pain; Leg, lower; Left; Additional info: Swelling and calf pain TECHNIQUE: Imaging protocol: Real-time Duplex ultrasound of the Left Lower Extremity with 2-D marie scale, color Doppler flow and spectral waveform analysis with image documentation. Limited exam focused on the left lower extremity veins. COMPARISON: No relevant prior studies available. FINDINGS: Evaluated veins include the left common femoral, proximal profunda femoral, proximal/mid/distal superficial femoral, popliteal, posterior tibial, peroneal, and proximal greater saphenous veins. No visible clot in the included veins. The included veins appear normally compressible. Duplex Doppler evaluation demonstrates flow in the evaluated veins. US/CV venous duplex [facility] [id number] IMPRESSION: No evidence of acute left lower extremity DVT. Radiation Dose CTDIVOL = (mGy): DLP = (mGy-cm)
[2021-02-27] MEDS: HYDROcodone-acetaminophen 7.5-325 mg Tablet 1 TAB PO (23:04)
[2021-02-27] MEDS: ondansetron 4 MG Tablet PO (23:04)
[2021-02-27 23:51] VITALS: BP 161/82; PULSE 79; RESP 20; O2SAT 97
== END 2021-02-27 23:42 | disposition home or self-care (01) ==
PROVIDERS: Emergency Provider Nurse Practitioner Family; PCP Nurse Practitioner Family
DX: M79.605 Pain in left leg (principal); R60.0 Localized edema; E78.5 Hyperlipidemia, unspecified; Z86.711 Personal history of pulmonary embolism; I10 Essential (primary) hypertension; F17.210 Nicotine dependence, cigarettes, uncomplicated
CPT/HCPCS: 93971; 99283; Q0162

== ENCOUNTER 2021-03-20 18:25 | Emergency (ER) | payer MEDICAID, SELFPAY ==
[2021-03-20 18:39] VITALS: BP 164/128; PULSE 74; RESP 18; TEMP 37; O2SAT 95; BMI 45.2
--- NOTE | 2021-03-20 20:18 | ED_ITS ---
Documented by User: Norma Pires MD 03/23/21 22:35 HPI - General Adult General: Chief complaint: Headache Stated complaint: Migrane\ N\Light Sensitivity Time Seen by Provider: 03/20/21 19:37 History of Present Illness: HPI narrative: Patient is a 40-year-old female with history of migraines presenting to emergency room with frontal headaches x3 days ago not improving with Imitrex. Patient states that since then, she has had significant worsening headache. Headache is gradual onset. Patient has no focal neurological complaints at this time. Ports nausea/vomiting, photophobia. No other focal complaints of note, patient reports 1 week of chest pain on the right side. Patient has a history of DVT/PE in the past. Is currently not taking any blood thinner. Patient would like to get that evaluated today Onset: 3 days ago Duration:3 days Location:home Severity:moderate Review of Systems Narrative: Constitutional: No fever, no chills. HEENT: No vision changes CV: No chest pain, no palpitations PULM: no cough, no dyspnea. GI: No abdominal pain, +N/+V/-D. : No dysuria MSKEL: No muscle pain SKIN: No new rashes, no lesions. NEURO: +headache, no focal weakness. HEME: No visible bruises PSYCH: Normal mood PFSH ED PFSH: Medical History Chronic low back pain with sciatica Chronic narcotic use ~ 2yrs, for back pain Dyslipidemia borderline by report, not on treatment Encounter for long-term opiate analgesic use History of pulmonary embolism post op, had DVT Hypertension Obesity BMI 39 Opioid contract exists Rosacea Surgical History H/O laminectomy History of back surgery (~2018) History of carpal tunnel release left History of D&C History of hysterectomy due to life threatening bleeding while on anticoagulation for PE/DVT History of laparoscopic adjustable gastric banding History of right knee surgery (~2008) patellar realignment History of tonsillectomy Family History Father Cancer pancreatic cancer Other Diabetes Heart disease Hypertension Social History (Updated 12/28/20 @ 15:12 by MISBAH Cardenas Smoking and tobacco status: current every day smoker cigarettes [ Other cigarette details: .5 pack per day ] Alcohol intake: never Lives independently: Yes Household members: spouse Current occupational status: disabled History of recent travel: No Female Reproductive History: Para: 3 Physical Exam Narrative: EXAM NARRATIVE: Head: Atraumatic Eyes: PERRL, conjunctiva without injection ENT: Mucous membrane moist NECK: Supple, ROM intact LUNGS: LCTAB, no crackles/rhonchi CV: RRR ABDOMEN: Soft, nontender in all quadrants EXTREMITY: Normal ROM SKIN: No rash or erythema NEURO: Mental status? Awake, alert, and oriented to self, year, month, location, and situation.? Following simple axial and appendicular commands.? Has appropriate fund of knowledge, comprehension, and insight.? Able to recall and understands pertinent aspects of medical history and current treatment status.? ? Language? Speech is fluent without word-finding difficulties.? 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 ? Cranial nerves? 2,3,4,6: PERRL, EOMI with no nystagmus. 5: Intact sensation to light touch, symmetric? 7: Smile symmetrical, no facial droop.? 8: Hearing grossly intact.? 9,10: Normal palate movement.? 11: Normal strength in trapezius bilaterally 12: Tongue protrudes midline.? ? Motor examination? Normal bulk & tone. Strength as follows (R/L): Delts (5/5), Biceps (5/5), Triceps (5/5), Wrist ext (5/5), hip flexors (5/5), plantarflexors (5/5), dorsiflexors (5/5). ? Sensation? Light Touch: Grossly intact and equal in upper and lower extremities bilaterally? Romberg: Negative.? Distal joint position sense intact ? Coordination? [id number]-finger movements intact without dysmetria or past-pointing.? Rapid fingertaps: preserved amplitude without decriment.? No tremor, myoclonus or truncal ataxia.? ? Gait/stance? Steady, normal narrow base gait with appropriate arm swing and turning.? Tandem gait without hesitation or loss of balance. PSYCH: Normal mood and affect Course Vital Signs: Vital signs: Vital Signs Temperature 98.6 F 10/25/21 23:59 Pulse Rate 78 03/20/21 23:59 Respiratory Rate 18 03/20/21 23:59 Blood Pressure 147/72 03/20/21 23:59 Pulse Oximetry 95 03/20/21 23:59 MDM - General Adult MDM Narrative: Medical decision making narrative: 40-year-old female presents emergency room with 3 days of worsening frontal headache. On exam, patient is neurologically intact. Patient received multiple treatments for headache including splenopalatine block, benadryl, IVF, toradol, and tylenol with improvement in headache. Lab Data: Labs: Lab Results 03/20/21 03/20/21 03/20/21 22:40 22:40 22:40 WBC 13.7 10^3/uL H 10 ^3/uL (4.0-10.0) RBC 4.78 10^6/uL 10^6 /uL (4.1-5.3) Hgb 14.5 g/dL g/dL (11.5-15.3) Hct 45.2 % % (37.0-47.0) MCV 94.6 fl fl (81-99) MCH 30.3 pg pg (28.0-34.0) MCHC 32.1 g/dL g/dL (30.0-36.0) RDW 13.2 % % (12.1-15.1) Plt Count 310 10^3/cmm 10^3 /cmm (130-400) MPV 10.2 fL fL (7.4-10.4) Neut % (Auto) 62.2 % % Lymph % (Auto) 26.6 % % [place] % (Auto) 6.3 % % Eos % (Auto) 2.7 % % Baso % (Auto) 1.1 % % Neut # (Auto) 8.53 10^3/uL H 10 ^3/uL (1.8-7.7) Lymph # (Auto) 3.7 10^3/uL 10^3/ uL (0.8-4.8) [place] # (Auto) 0.9 10^3/uL 10^3/ uL (0.2-0.9) Eos # (Auto) 0.4 10^3/uL 10^3/ uL (0.0-0.8) Baso # (Auto) 0.2 10^3/uL H 10^ 3/uL (0.0-0.1) Nucleated RBC % (a uto) 0 % % Nucleated RBCs # 0.0 /100WBC /100W BC D-Dimer <= 0.27 ug/mIFEU ug/mIFEU (0-0.59) Sodium 138 mmol/L mmol/L (136-145) Potassium 4.2 mmol/L mmol/L (3.5-5.1) Chloride 102 mmol/L mmol/L (98-107) Carbon Dioxide 23 mmol/L mmol/L (22-29) Anion Gap 17.2 (5-19) BUN 19 mg/dL mg/dL (6-20) Creatinine 0.7 mg/dL mg/dL (0.5-0.9) GFR Calculation 91.8 mL/min mL/mi n (90-130) Glucose 82 mg/dL mg/dL (65-115) Calculated Osmolal ity 287 mOsm/kg mOsm/ kg (285-295) Calcium 9.5 mg/dL mg/dL (8.5-10.5) Troponin T Gen 5 n g/L 03/20/21 22:40 WBC RBC Hgb Hct MCV MCH MCHC RDW Plt Count MPV Neut % (Auto) Lymph % (Auto) [place] % (Auto) Eos % (Auto) Baso % (Auto) Neut # (Auto) Lymph # (Auto) [place] # (Auto) Eos # (Auto) Baso # (Auto) Nucleated RBC % (a uto) Nucleated RBCs # D-Dimer Sodium Potassium Chloride Carbon Dioxide Anion Gap BUN Creatinine GFR Calculation Glucose Calculated Osmolal ity Calcium Troponin T Gen 5 n g/L 7 ng/L ng/L (0-10) EKG Data^: EKG 1: Computer generated interpretation: Chest X-Ray 03/20/21 22:00 IMPRESSION: No acute cardiopulmonary abnormality. Radiation Dose CTDIVOL = (mGy): DLP = (mGy-cm) Discharge Plan Discharge Patient Disposition: Home Clinical Impression: Chest pain, Headache Condition: Stable Prescriptions: New acetaminophen 500 mg tablet 500 mg PO Q6H PRN (Reason: pain) 5 Days Qty: 20 RF: 0 No Action morphine 15 mg tablet 15 mg PO TID PRN (Reason: pain) 30 Days Qty: 90 RF: 0 Zanaflex 4 mg capsule 4 mg PO TID PRN (Reason: muscle spasticity) 30 Days Qty: 90 RF: 0 sumatriptan succinate 50 mg tablet 50 mg PO Q2H PRNRF: 0 morphine 15 mg tablet 15 mg PO TID PRN (Reason: pain) 7 Days Qty: 21 RF: 0 hydrocodone-acetaminophen 5-325 mg tablet 1 tab PO Q8H PRN (Reason: pain) Qty: 7 RF: 0 lisinopril-hydrochlorothiazide 20-25 mg Tablet 1 tab PO DAILY@11 RF: 0 duloxetine 60 mg Capsule,Delayed Release(Dr/Ec) 60 mg PO DAILY@11 RF: 0 Linzess 72 mcg Capsule 72 mcg PO DAILY PRN (Reason: IBS) RF: 0 Discharge Orders: Discharge ED (Routine); Ordered 03/20/21 Ordered By: Malinda Williamson Discharge Diet: Advance as tolerated Discharge Activity: Resume usual activity Patient Instructions: Chest Pain (ED), Acute Headache (ED) Activity Restrictions/Additional Instructions: Please come back to the emergency room if your chest pain worsens, if you have any fever or chills, if you have any worsening headache, weakness in the arms or legs, or any new or concerning complaints. Coding Level of Care Code ED Service Aide for Chg Fwd Documented by User: Malinda Williamson MD 03/21/21 00:06 HPI - General Adult General: Chief complaint: Headache Stated complaint: Migrane\ N\Light Sensitivity Time Seen by Provider: 03/20/21 19:37 PFSH ED PFSH: Medical History Chronic low back pain with sciatica Chronic narcotic use ~ 2yrs, for back pain Dyslipidemia borderline by report, not on treatment Encounter for long-term opiate analgesic use History of pulmonary embolism post op, had DVT Hypertension Obesity BMI 39 Opioid contract exists Rosacea Surgical History H/O laminectomy History of back surgery (~2017) History of carpal tunnel release left History of D&C History of hysterectomy due to life threatening bleeding while on anticoagulation for PE/DVT History of laparoscopic adjustable gastric banding History of right knee surgery (~2008) patellar realignment History of tonsillectomy Family History Father Cancer pancreatic cancer Other Diabetes Heart disease Hypertension Social History (Updated 12/28/20 @ 15:12 by Alyssa Rudolph LPN) Smoking and tobacco status: current every day smoker cigarettes [ Other cigarette details: .5 pack per day ] Alcohol intake: never Lives independently: Yes Household members: spouse Current occupational status: disabled History of recent travel: No Course Vital Signs: Vital signs: Vital Signs Temperature 98.6 F 03/20/21 23:59 Pulse Rate 78 03/20/21 23:59 Respiratory Rate 18 03/20/21 23:59 Blood Pressure 147/72 03/20/21 23:59 Pulse Oximetry 95 03/20/21 23:59 MDM - General Adult MDM Narrative: Medical decision making narrative: Took this patient over from Dr. Pires. Patient's well-appearing here and migraine is resolved. She has no signs of subarachnoid hemorrhage or meningitis patient does have chest pain but no signs of acute coronary syndrome with negative D-dimer and troponin. Patient stable for discharge is to follow-up PCP and return if worsening. Lab Data: Labs: Lab Results 03/20/21 03/20/21 03/20/21 22:40 22:40 22:40 WBC 13.7 10^3/uL H 10 ^3/uL (4.0-10.0) RBC 4.78 10^6/uL 10^6 /uL (4.1-5.3) Hgb 14.5 g/dL g/dL (11.5-15.3) Hct 45.2 % % (37.0-47.0) MCV 94.6 fl fl (81-99) MCH 30.3 pg pg (28.0-34.0) MCHC 32.1 g/dL g/dL (30.0-36.0) RDW 13.2 % % (12.1-15.1) Plt Count 310 10^3/cmm 10^3 /cmm (130-400) MPV 10.2 fL fL (7.4-10.4) Neut % (Auto) 62.2 % % Lymph % (Auto) 26.6 % % [place] % (Auto) 6.3 % % Eos % (Auto) 2.7 % % Baso % (Auto) 1.1 % % Neut # (Auto) 8.53 10^3/uL H 10 ^3/uL (1.8-7.7) Lymph # (Auto) 3.7 10^3/uL 10^3/ uL (0.8-4.8) [place] # (Auto) 0.9 10^3/uL 10^3/ uL (0.2-0.9) Eos # (Auto) 0.4 10^3/uL 10^3/ uL (0.0-0.8) Baso # (Auto) 0.2 10^3/uL H 10^ 3/uL (0.0-0.1) Nucleated RBC % (a uto) 0 % % Nucleated RBCs # 0.0 /100WBC /100W BC D-Dimer <= 0.27 ug/mIFEU ug/mIFEU (0-0.59) Sodium 138 mmol/L mmol/L (136-145) Potassium 4.2 mmol/L mmol/L (3.5-5.1) Chloride 102 mmol/L mmol/L (98-107) Carbon Dioxide 23 mmol/L mmol/L (22-29) Anion Gap 17.2 (5-19) BUN 19 mg/dL mg/dL (6-20) Creatinine 0.7 mg/dL mg/dL (0.5-0.9) GFR Calculation 91.8 mL/min mL/mi n (90-130) Glucose 82 mg/dL mg/dL (65-115) Calculated Osmolal ity 287 mOsm/kg mOsm/ kg (285-295) Calcium 9.5 mg/dL mg/dL (8.5-10.5) Troponin T Gen 5 n g/L 03/20/21 22:40 WBC RBC Hgb Hct MCV MCH MCHC RDW Plt Count MPV Neut % (Auto) Lymph % (Auto) [place] % (Auto) Eos % (Auto) Baso % (Auto) Neut # (Auto) Lymph # (Auto) [place] # (Auto) Eos # (Auto) Baso # (Auto) Nucleated RBC % (a uto) Nucleated RBCs # D-Dimer Sodium Potassium Chloride Carbon Dioxide Anion Gap BUN Creatinine GFR Calculation Glucose Calculated Osmolal ity Calcium Troponin T Gen 5 n g/L 7 ng/L ng/L (0-10) EKG Data^: EKG 1: Attestation: I personally reviewed and interpreted this EKG as follows: EKG interpretation date: 03/20/21 EKG interpretation time: 23:17 Interpretation: nsr hr [address] or t wave abnormalities qrs 105 qtc 433 Computer generated interpretation: Chest X-Ray 03/20/21 22:00 IMPRESSION: No acute cardiopulmonary abnormality. Radiation Dose CTDIVOL = (mGy): DLP = (mGy-cm) Discharge Plan Discharge Patient Disposition: Home Clinical Impression: Chest pain, Headache Condition: Stable Prescriptions: New acetaminophen 500 mg tablet 500 mg PO Q6H PRN (Reason: pain) 5 Days Qty: 20 RF: 0 No Action morphine 15 mg tablet 15 mg PO TID PRN (Reason: pain) 30 Days Qty: 90 RF: 0 Zanaflex 4 mg capsule 4 mg PO TID PRN (Reason: muscle spasticity) 30 Days Qty: 90 RF: 0 sumatriptan succinate 50 mg tablet 50 mg PO Q2H PRNRF: 0 morphine 15 mg tablet 15 mg PO TID PRN (Reason: pain) 7 Days Qty: 21 RF: 0 hydrocodone-acetaminophen 5-325 mg tablet 1 tab PO Q8H PRN (Reason: pain) Qty: 7 RF: 0 lisinopril-hydrochlorothiazide 20-25 mg Tablet 1 tab PO DAILY@11 RF: 0 duloxetine 60 mg Capsule,Delayed Release(Dr/Ec) 60 mg PO DAILY@11 RF: 0 Linzess 72 mcg Capsule 72 mcg PO DAILY PRN (Reason: IBS) RF: 0 Discharge Orders: Discharge ED (Routine); Ordered 03/20/21 Ordered By: Malinda Williamson Discharge Diet: Advance as tolerated Discharge Activity: Resume usual activity Patient Instructions: Chest Pain (ED), Acute Headache (ED) Activity Restrictions/Additional Instructions: Please come back to the emergency room if your chest pain worsens, if you have any fever or chills, if you have any worsening headache, weakness in the arms or legs, or any new or concerning complaints. Coding Level of Care Code ED Service Aide for Zabrina Burgess
[2021-03-20] MEDS: magnesium oxide 400 mg tablet PO (21:35)
[2021-03-20] MEDS: ketorolac 30 mg/mL INJ IM (21:35)
[2021-03-20] MEDS: acetaminophen 500 mg Tablet 1000 MG PO (21:35)
[2021-03-20] MEDS: lidocaine 1% INJ 20 mL INJECTION (21:36)
--- NOTE | 2021-03-20 22:00 | XRR_ITS ---
PROCEDURE INFORMATION: Exam: XR Chest Exam date and time: 03/20/2021 10:00 PM Age: 40 years old Clinical indication: Pain; Left-sided; Patient HX: Cp, migraine; Additional info: Dyspnea TECHNIQUE: Imaging protocol: XR of the chest. Views: 1 view. COMPARISON: No relevant prior studies available. FINDINGS: Lungs: There is elevation of the left hemidiaphragm and minimal linear scarring or atelectasis near the left costophrenic angle. The lungs are otherwise clear. Pleural spaces: Unremarkable. No pleural effusion. No pneumothorax. Heart/Mediastinum: Unremarkable. No cardiomegaly. Bones/joints: Unremarkable. XR/XR chest 1V portable [id number] IMPRESSION: No acute cardiopulmonary abnormality. Radiation Dose CTDIVOL = (mGy): DLP = (mGy-cm)
--- NOTE | 2021-03-20 22:00 | ECG_ITS ---
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 Measurements Intervals [place] Rate: 64 P: 9 IA: 138 QRS: 59 QRSD: 105 T: 76 QT: 423 QTc: 438 Interpretive Statements SINUS RHYTHM NONSPECIFIC T-WAVE ABNORMALITY No previous ECG available for comparison Electronically Signed On 03-20-2021 23:58:33 CDT by Fide Peacock M.D. [id number]
[2021-03-20 22:52] LABS: Basophils # 0.2 10^3/uL (0.0-0.1); Basophils % 1.1 %; Eosinophils # 0.4 10^3/uL (0.0-0.8); Eosinophils % 2.7 %; Hematocrit 45.2 % (37.0-47.0); Hemoglobin 14.5 g/dL (11.5-15.3); Lymphocytes # 3.7 10^3/uL (0.8-4.8); Lymphocytes % 26.6 %; Mean Corpuscular HGB Conc 32.1 g/dL (30.0-36.0); Mean Corpuscular Hemoglobin 30.3 pg (28.0-34.0); Mean Corpuscular Volume 94.6 fl (81-99); Mean Platelet Volume 10.2 fL (7.4-10.4); Monocytes # 0.9 10^3/uL (0.2-0.9); Monocytes % 6.3 %; Neutrophils # 8.53 10^3/uL (1.8-7.7); Neutrophils % 62.2 %; Nucleated Red Blood Cells % 0 %; Platelet Count 310 10^3/cmm (130-400); Red Blood Count 4.78 10^6/uL (4.1-5.3); Red Cell Distribution Width 13.2 % (12.1-15.1); White Blood Count 13.7 10^3/uL (4.0-10.0)
[2021-03-20 23:06] LABS: D Dimer <= 0.27 ug/mIFEU (0-0.59)
[2021-03-20] MEDS: sodium chloride 0.9% 1,000 ML 999 ML IV (23:08)
[2021-03-20] MEDS: ketorolac 30 mg/mL INJ IVP (23:08)
[2021-03-20] MEDS: diphenhydrAMINE 50 mg/mL SDV 1mL IVP (23:08)
[2021-03-20 23:09] LABS: Troponin T (5th) Once 7 ng/L (0-10)
[2021-03-20 23:10] LABS: Anion Gap 17.2 (5-19); Blood Urea Nitrogen 19 mg/dL (6-20); Calcium 9.5 mg/dL (8.5-10.5); Carbon Dioxide 23 mmol/L (22-29); Chloride 102 mmol/L (98-107); Glomerular Filtration Rate 91.8 mL/min (90-130); Glucose 82 mg/dL (65-115); Osmolality Calculated 287 mOsm/kg (285-295); Potassium 4.2 mmol/L (3.5-5.1); Sodium 138 mmol/L (136-145)
[2021-03-20 23:59] VITALS: BP 147/72; PULSE 78; RESP 18; TEMP 37; O2SAT 95
== END 2021-03-20 23:59 | disposition home or self-care (01) ==
PROVIDERS: Emergency Medicine; Emergency Provider Emergency Medicine
DX: R51.9 Headache, unspecified (principal); R07.9 Chest pain, unspecified; F17.210 Nicotine dependence, cigarettes, uncomplicated; I10 Essential (primary) hypertension; E66.9 Obesity, unspecified; Z68.42 Body mass index [BMI] 45.0-49.9, adult; Z79.891 Long term (current) use of opiate analgesic
CPT/HCPCS: 71045; 80048; 84484; 85025; 85378; 93005; 96361; 96374; 96375; 99284; J1200; J1885; J7030

== ENCOUNTER 2021-03-26 19:54 | Emergency (ER) | payer MEDICAID, SELFPAY ==
[2021-03-26 19:59] VITALS: BP 162/90; PULSE 83; RESP 22; TEMP 36.9; O2SAT 96; BMI 44.9
--- NOTE | 2021-03-27 | ED_ITS ---
HPI - Headache General: Chief Complaint: Headache Stated Complaint: Migrane\Vomiting Time Seen by Provider: 03/27/21 00:00 History of Present Illness: HPI Narrative: 40-year-old female comes in today with complaints of migraine headache. Patient reports a similar to her usual migraine. Patient states that yesterday the headache started then. Patient reports then today she started having some nausea and vomiting about 4 hours prior to arrival to the ER. Patient was unable to tolerate any oral fluids. Patient had several episodes of emesis in the emergency room waiting area. Patient appears mildly unwell but not toxic. Patient appears no acute distress. Review of Systems General: Reports: 10 or more systems reviewed and unremarkable except in HPI and below Neuro: Reports: headache(s) PFSH ED PFSH: Medical History Chronic low back pain with sciatica Chronic narcotic use ~ 2yrs, for back pain Dyslipidemia borderline by report, not on treatment Encounter for long-term opiate analgesic use History of pulmonary embolism post op, had DVT Hypertension Obesity BMI 39 Opioid contract exists Rosacea Surgical History H/O laminectomy History of back surgery (~2017) History of carpal tunnel release left History of D&C History of hysterectomy due to life threatening bleeding while on anticoagulation for PE/DVT History of laparoscopic adjustable gastric banding History of right knee surgery (~2008) patellar realignment History of tonsillectomy Family History Father Cancer pancreatic cancer Other Diabetes Heart disease Hypertension Social History (Updated 12/28/20 @ 15:12 by Alyssa Rudolph LPN) Smoking and tobacco status: current every day smoker cigarettes [ Other cigarette details: .5 pack per day ] Alcohol intake: never Lives independently: Yes Household members: spouse Current occupational status: disabled History of recent travel: No Female Reproductive History: Para: 3 Physical Exam Const: COMMON NORMALS: no acute distress and patient oriented x3 GENERAL APPEARANCE: cooperative HENMT: COMMON NORMALS: normocephalic and Normal external nose present HEAD & SCALP: normal to inspection and normocephalic NOSE: Normal external nose present MOUTH: Normal oral and palatal mucosa present Eye: GENERAL EYE: appearance normal, both eyes and all related structures Neck/C-Spine: COMMON NORMALS: full ROM Chest: COMMONS NORMALS: normal inspection of the chest Resp: COMMON NORMALS: normal respiratory effort EFFORT & INSPECTION: Yes able to speak in complete sentences Cardio: COMMON NORMALS: regular rate and regular rhythm RATE: regular rate RHYTHM: regular rhythm GI: COMMON NORMALS: non-tender Extremity: COMMON NORMALS: normal to inspection Neuro: COMMON NORMALS: patient oriented x3 and moves all extremities Psych: COMMON NORMALS: mental status grossly normal and cooperative Skin: COMMON NORMALS: no rashes or lesions noted GENERAL SKIN EXAM: no rashes or lesions noted Course Vital Signs: Vital signs: Vital Signs Temperature 98.4 F 03/26/21 19:59 Pulse Rate 83 03/26/21 19:59 Respiratory Rate 22 H 03/26/21 19:59 Blood Pressure 162/90 03/26/21 19:59 Pulse Oximetry 96 03/26/21 19:59 MDM - Headache MDM Narrative: Medical decision making narrative: Patient comes in today for complaints of migraine headache starting yesterday. Patient then reports today she has had nausea and vomiting for the last 4 hours that she has been unable to control. On exam patient appears mildly unwell. Patient does not appear toxic. Lungs are clear to auscultation. No focal neural deficits. Patient is actively vomiting. Differential diagnosis includes migraine headache, gastroenteritis, gastritis. Patient was treated for migraine headache with ketorolac 30 mg, 25 mg diphenhydramine, 6 mg dexamethasone, and 3 mg of dane operidol. Haloperidol was used to the patient's persistent vomiting and inability to use Reglan or promethazine. Patient had improvement of symptoms although her headache did persist. I did recommend patient follow-up follow-up with primary care in the morning for further recommendations of treatment plan. Discharge Plan Discharge Patient Disposition: Home Clinical Impression: Migraine Qualifiers: Migraine type: unspecified Status migrainosus presence: without status migrainosus Intractability: not intractable Qualified Code(s): G43.909 - Migraine, unspecified, not intractable, without status migrainosus Condition: Stable Prescriptions: No Action morphine 15 mg tablet 15 mg PO TID PRN (Reason: pain) 30 Days Qty: 90 RF: 0 Zanaflex 4 mg capsule 4 mg PO TID PRN (Reason: muscle spasticity) 30 Days Qty: 90 RF: 0 sumatriptan succinate 50 mg tablet 50 mg PO Q2H PRNRF: 0 morphine 15 mg tablet 15 mg PO TID PRN (Reason: pain) 7 Days Qty: 21 RF: 0 hydrocodone-acetaminophen 5-325 mg tablet 1 tab PO Q8H PRN (Reason: pain) Qty: 7 RF: 0 lisinopril-hydrochlorothiazide 20-25 mg Tablet 1 tab PO DAILY@11 RF: 0 duloxetine 60 mg Capsule,Delayed Release(Dr/Ec) 60 mg PO DAILY@11 RF: 0 Linzess 72 mcg Capsule 72 mcg PO DAILY PRN (Reason: IBS) RF: 0 Discharge Orders: Discharge ED (Routine); Ordered 03/27/21 Ordered By: Delfino Silva Discharge Diet: Usual diet Discharge Activity: Increase activity as tolerated Patient Instructions: Migraine Headache (ED), Opioid Safety Activity Restrictions/Additional Instructions: Home and rest, Follow-up with primary care in morning Coding Level of Care Code ED 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
[2021-03-27] MEDS: dexamethasone 10 mg/mL INJ 6 MG IVP (01:21)
[2021-03-27] MEDS: diphenhydrAMINE 50 mg/mL SDV 1mL 25 MG IVP (01:21)
[2021-03-27] MEDS: ketorolac 30 mg/mL INJ IVP (01:21)
[2021-03-27] MEDS: haloperidol inj 5 mg/mL INJ 1 mL 3 MG IVP (01:21)
[2021-03-27] MEDS: sodium chloride 0.9% 1,000 ML 999 ML IV (01:21)
[2021-03-27 02:07] VITALS: BP 175/100; PULSE 84; RESP 18; O2SAT 97
== END 2021-03-27 02:09 | disposition home or self-care (01) ==
PROVIDERS: Emergency Provider Nurse Practitioner Family
DX: G43.909 Migraine, unspecified, not intractable, without status migrainosus (principal); Z79.891 Long term (current) use of opiate analgesic; I10 Essential (primary) hypertension; F17.210 Nicotine dependence, cigarettes, uncomplicated
CPT/HCPCS: 96361; 96374; 96375; 99284; J1100; J1200; J1630; J1885; J7030

== ENCOUNTER 2021-04-23 16:02 | Emergency (ER) | payer MEDICAID, SELFPAY ==
[2021-04-23 16:37] VITALS: BP 156/106; PULSE 86; RESP 18; TEMP 36.7; O2SAT 97; BMI 46.5
--- NOTE | 2021-04-23 17:00 | PC.NURSE ---
NOTIFIED CHARGE NURSE OF NEED OF SITTER SHE VERBALIZED THERE WAS NO SITTER AVAILABLE.
--- NOTE | 2021-04-23 17:09 | W.ED.URI ---
HPI - URI/Sore Throat General: Chief Complaint: Upper Respiratory Infection Stated Complaint: COUGH,TROUBLE BREATHING, LIGHT HEADED Time Seen by Provider: 04/23/21 16:58 History of Present Illness: HPI Narrative: 40-year-old female came in today with complaints of upper respiratory symptoms and some shortness of breath. Patient reports cough and congestion for the last 2 to 3 days. Patient has been vaccinated for COVID-19. Patient screened positive for concerns of depression and suicidal ideation. When questioned about her suicidality patient denied wish to harm herself but knows she has some depression and would like referral to counseling services. Patient appears mildly unwell but not toxic. Patient appears in no pain. Patient is calm and cooperative. Associated symptoms: Reports nasal congestion Review of Systems General: Reports: 10 or more systems reviewed and unremarkable except in HPI and below ENMT: Reports: nasal congestion Resp: Reports: non-productive cough PFSH ED PFSH: Medical History Chronic low back pain with sciatica Chronic narcotic use ~ 2yrs, for back pain Dyslipidemia borderline by report, not on treatment Encounter for long-term opiate analgesic use History of pulmonary embolism post op, had DVT Hypertension Obesity BMI 39 Opioid contract exists Rosacea Surgical History H/O laminectomy History of back surgery (~2018) History of carpal tunnel release left History of D&C History of hysterectomy due to life threatening bleeding while on anticoagulation for PE/DVT History of laparoscopic adjustable gastric banding History of right knee surgery (~2008) patellar realignment History of tonsillectomy Family History Father Cancer pancreatic cancer Other Diabetes Heart disease Hypertension Social History (Updated 12/28/20 @ 15:12 by Alyssa Rudolph LPN) Smoking and tobacco status: current every day smoker cigarettes [ Other cigarette details: .5 pack per day ] Alcohol intake: never Lives independently: Yes Household members: spouse Current occupational status: disabled History of recent travel: No Female Reproductive History: Para: 3 Physical Exam Const: COMMON NORMALS: no acute distress and patient oriented x3 GENERAL APPEARANCE: cooperative HENMT: COMMON NORMALS: normocephalic and TM's normal bilaterally HEAD & SCALP: normal to inspection and normocephalic NOSE: Nasal discharge present TYMPANIC MEMBRANE: TM's normal bilaterally MOUTH: Normal oral and palatal mucosa present THROAT: posterior oropharynx normal Eye: GENERAL EYE: appearance normal, both eyes and all related structures Neck/C-Spine: COMMON NORMALS: full ROM Lymph: LYMPHATIC: no lymphadenopathy noted Chest: COMMONS NORMALS: normal inspection of the chest Resp: COMMON NORMALS: normal respiratory effort EFFORT & INSPECTION: Yes able to speak in complete sentences AUSCULTATION: diminished lung sounds Cardio: COMMON NORMALS: regular rate and regular rhythm RATE: regular rate RHYTHM: regular rhythm GI: COMMON NORMALS: non-tender : COMMON NORMALS: Yes no CVA tenderness BLADDER/KIDNEY EXAM: Yes no CVA tenderness Back/Pelvis: COMMON NORMALS: no CVA tenderness and thoracic and lumbar spine normal to inspection Extremity: COMMON NORMALS: normal to inspection Neuro: COMMON NORMALS: patient oriented x3 and moves all extremities Psych: COMMON NORMALS: mental status grossly normal and cooperative Skin: COMMON NORMALS: no rashes or lesions noted GENERAL SKIN EXAM: no rashes or lesions noted Course Vital Signs: Vital signs: Vital Signs Temperature 98.0 F 04/23/21 18:21 Pulse Rate 86 04/23/21 18:21 Respiratory Rate 18 04/23/21 18:21 Blood Pressure 156/106 04/23/21 18:21 Pulse Oximetry 97 04/23/21 18:21 MDM - URI/Sore Throat MDM Narrative: Medical decision making narrative: 40-year-old female comes in today with cough and nasal congestion for the last 3 days. On exam patient has nasal congestion, posterior pharynx is pink and moist. Respirations are even lungs are decreased in the bases with some occasional wheezes. Differential diagnosis includes acute bronchitis, pneumonia, COPD versus asthma. Chest x-ray was unremarkable. Feel the patient probably has bronchitis. We will treat her with doxycycline, steroids, and albuterol inhaler. Patient is a smoker and this may actually be a COPD versus asthma. Patient was also positive on her questionnaire regarding depression and suicidality. Reviewed this with patient patient denied any suicidal intent although she knows she does have some depression and would like to have counseling services arranged if possible. I put in a case management request for counseling services which patient was very agreeable and happy for. Lab Data: Labs: Lab Results 04/23/21 04/23/21 18:00 18:00 Influenza Type A A g Negative (Negative) Influenza Type B A g Negative (Negative) SARS-CoV-2 Ag (Rap id) Negative (Negative) Discharge Plan Discharge Patient Disposition: Home Clinical Impression: Bronchitis MDD (major depressive disorder) Qualifiers: Major depression recurrence: recurrent Active/Remission status: remission status unspecified Qualified Code(s): F33.9 - Major depressive disorder, recurrent, unspecified Condition: Stable Prescriptions: New doxycycline monohydrate 100 mg capsule 100 mg PO BID 10 Days Qty: 20 RF: 0 prednisone 20 mg tablet 20 mg PO BID 5 Days Qty: 10 RF: 0 No Action morphine 15 mg tablet 15 mg PO TID PRN (Reason: pain) 30 Days Qty: 90 RF: 0 Zanaflex 4 mg capsule 4 mg PO TID PRN (Reason: muscle spasticity) 30 Days Qty: 90 RF: 0 sumatriptan succinate 50 mg tablet 50 mg PO Q2H PRNRF: 0 morphine 15 mg tablet 15 mg PO TID PRN (Reason: pain) 7 Days Qty: 21 RF: 0 hydrocodone-acetaminophen 5-325 mg tablet 1 tab PO Q8H PRN (Reason: pain) Qty: 7 RF: 0 lisinopril-hydrochlorothiazide 20-25 mg Tablet 1 tab PO DAILY@11 RF: 0 duloxetine 60 mg Capsule,Delayed Release(Dr/Ec) 60 mg PO DAILY@11 RF: 0 Linzess 72 mcg Capsule 72 mcg PO DAILY PRN (Reason: IBS) RF: 0 Discharge Orders: Discharge ED (Routine); Ordered 04/23/21 Ordered By: Delfino Silva Referrals: Nevaeh Burt FNP [Primary Care Provider] - Discharge Diet: Usual diet Discharge Activity: Increase activity as tolerated Patient Instructions: Chronic Bronchitis (ED), Opioid Safety Activity Restrictions/Additional Instructions: Try to stop smoking. Use antibiotic and steroid as directed. Will be doxycycline 100 mg 2 times a day for 10 days. Prednisone 20 mg twice a day for 10 days. Use albuterol inhaler 2 puffs every 4 hours as needed for shortness of breath, wheezing, and persistent coughing. Drink plenty of water. Case management will contact you in regard to follow-up with behavioral health for counseling services. Coding Level of Care Code ED Travelift Operator for Chg Fwd Exam Comprehensive
--- NOTE | 2021-04-23 17:25 | XRR_ITS ---
PROCEDURE INFORMATION: Exam: XR Chest Exam date and time: 04/23/2021 5:25 PM Age: 40 years old Clinical indication: Cough TECHNIQUE: Imaging protocol: XR of the chest. Views: 1 view. COMPARISON: CR (CHEST, ) 03/20/2021 10:09 PM FINDINGS: Lungs: There is linear scarring at the left lung base similar to the prior study. Pleural spaces: Unremarkable. No pleural effusion. No pneumothorax. Heart/Mediastinum: Unremarkable. No cardiomegaly. Diaphragm: Minimal elevation of the left hemidiaphragm is similar to the prior study. Bones/joints: Unremarkable. XR/XR chest 1V portable [id number] IMPRESSION: No evidence for acute cardiopulmonary disease. Radiation Dose CTDIVOL = (mGy): DLP = (mGy-cm)
--- NOTE | 2021-04-23 18:01 | ECG_ITS ---
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
[2021-04-23 18:21] VITALS: BP 156/106; PULSE 86; RESP 18; TEMP 36.7; O2SAT 97
[2021-04-23 18:35] LABS: Influenza A by IFA Negative (Negative); Influenza B by IFA Negative (Negative); SARS Covid-2 Antigen Negative (Negative)
[2021-04-23] MEDS: doxycycline 100 mg Tablet PO (19:22)
[2021-04-23] MEDS: dexamethasone 10 mg/mL INJ IM (19:23)
[2021-04-23] MEDS: oxymetazoline 0.05% Nasal Spray 15 mL 2 SPRAY NOSTRIL-B (19:25)
[2021-04-23] MEDS: albuterol 8 gm MDI 2 PUFF INHALATION (19:30)
[2021-04-23 19:34] VITALS: BP 129/72; PULSE 79; RESP 15; TEMP 36.7; O2SAT 98
[2021-04-23 19:35] VITALS: PULSE 85; RESP 20; O2SAT 97
== END 2021-04-23 19:39 | disposition home or self-care (01) ==
PROVIDERS: Emergency Provider Nurse Practitioner Family; PCP Nurse Practitioner Family
DX: J40 Bronchitis, not specified as acute or chronic (principal); F33.9 Major depressive disorder, recurrent, unspecified; E78.5 Hyperlipidemia, unspecified; Z86.711 Personal history of pulmonary embolism; I10 Essential (primary) hypertension; F17.210 Nicotine dependence, cigarettes, uncomplicated; Z20.822 Contact with and (suspected) exposure to COVID-19
CPT/HCPCS: 71045; 87426; 87804; 93005; 94640; 96372; 99283; J1100; J3535

== ENCOUNTER → 2021-06-20 15:25 | Outpatient (BNVA) | payer MEDICAID, SELFPAY | PROVIDERS: PCP Nurse Practitioner Family; Referring Provider Nurse Practitioner Family; Visit Provider Specialist | DX: G43.711 Chronic migraine without aura, intractable, with status migrainosus (principal); M54.50 Low back pain, unspecified; G93.0 Cerebral cysts; R68.89 Other general symptoms and signs | CPT/HCPCS: 99204; 99205 ==

== ENCOUNTER 2021-07-14 18:05 | Emergency (ER) | payer MEDICAID, SELFPAY ==
--- NOTE | 2021-07-14 18:09 | XRR_ITS ---
PROCEDURE INFORMATION: Exam: XR Right Wrist Exam date and time: 07/14/2021 6:09 PM Age: 41 years old Clinical indication: Pain; Wrist; Right; Additional info: Fall TECHNIQUE: Imaging protocol: XR Right wrist. Views: 3 or more views. COMPARISON: No relevant prior studies available. FINDINGS: Bones/joints: Distal radial metaphyseal nondisplaced subtle fracture with extension to the articular surface at the radiocarpal joint. Soft tissues: Normal. XR/XR wrist RT min 3V* [id number] IMPRESSION: Distal radial metaphyseal nondisplaced subtle fracture with extension to the articular surface at the radiocarpal joint.
[2021-07-14 18:17] VITALS: BP 169/123; PULSE 80; RESP 20; TEMP 36.7; O2SAT 100; BMI 49.9
--- NOTE | 2021-07-14 18:32 | ED_ITS ---
HPI - Extremity Problem General: Chief complaint: Extremity Injury, Upper Stated complaint: RT Wrist Pain/Fall Time Seen by Provider: 07/14/21 18:19 Source: patient Mode of arrival: ambulatory History of Present Illness: 41-year-old female states that she was chasing her dog down a hill that was muddy she states she slipped and fell landed on her right wrist. States she had right wrist pain since then she rates an 8 out of 10 she denies any other injuries denies any head denies any neck pain. Associated symptoms: Deny chest pain, fever(s) or rash Review of Systems Const: Denies: fever(s), chills, body aches or change in appetite Eyes: Denies: blurry vision or eye discomfort ENMT: Denies: throat pain or dental pain Card: Denies: chest pain Resp: Denies: dyspnea GI: Denies: abdominal pain, nausea, vomiting or diarrhea : Denies: dysuria Musc: Reports: extremity pain Skin/Breast: Denies: rash Neuro: Denies: headache(s) Psych: Denies: depression Zach/Lymph: Denies: easy bruising All/Imm: Denies: urticaria PFSH ED PFSH: Medical History Chronic low back pain with sciatica Chronic narcotic use ~ 2yrs, for back pain Dyslipidemia borderline by report, not on treatment Encounter for long-term opiate analgesic use History of pulmonary embolism post op, had DVT Hypertension Obesity BMI 39 Opioid contract exists Rosacea Surgical History H/O laminectomy History of back surgery (~2018) History of carpal tunnel release left History of D&C History of hysterectomy due to life threatening bleeding while on anticoagulation for PE/DVT History of laparoscopic adjustable gastric banding History of right knee surgery (~2008) patellar realignment History of tonsillectomy Family History Father Cancer pancreatic cancer Other Diabetes Heart disease Hypertension Social History Smoking and tobacco status: never smoked Alcohol intake: never Lives independently: Yes Household members: spouse Current occupational status: disabled History of recent travel: No Female Reproductive History: Para: 3 Physical Exam Const: COMMON NORMALS: no acute distress, patient oriented x3 and healthy appearing HENMT: COMMON NORMALS: normocephalic and atraumatic HEAD & SCALP: normocephalic and atraumatic Eye: COMMON NORMALS: Equal, round and reactive pupils present and EOMs intact bilaterally PUPIL: Yes Equal, round and reactive pupils present Neck/C-Spine: COMMON NORMALS: full ROM and supple Chest: COMMONS NORMALS: normal inspection of the chest and normal palpation of entire chest wall Resp: COMMON NORMALS: normal respiratory effort, No retractions, No use of accessory muscles and clear to auscultation bilaterally AUSCULTATION: clear to auscultation bilaterally Cardio: COMMON NORMALS: regular rate, regular rhythm and No murmurs present (Cardio) RATE: regular rate RHYTHM: regular rhythm GI: COMMON NORMALS: Normal to inspection, nondistended, normoactive bowel sounds present, Soft to palpation, non-tender and no masses PALPATION: Yes Soft to palpation Extremity: COMMON NORMALS: normal to inspection NARRATIVE EXTREMITY EXAM: Tenderness over right radius distal pulses intact no pain to the right elbow or shoulder Neuro: COMMON NORMALS: patient oriented x3, moves all extremities and no focal motor deficits Psych: COMMON NORMALS: mental status grossly normal, Normal thought process present and cooperative THOUGHT PROCESS: Normal thought process present Skin: COMMON NORMALS: no rashes or lesions noted and no wounds GENERAL SKIN EXAM: no rashes or lesions noted Course Vital Signs: Vital signs: Vital Signs Temperature 98.0 F 07/14/21 18:17 Pulse Rate 80 07/14/21 18:17 Respiratory Rate 20 H 07/14/21 18:17 Blood Pressure 169/123 07/14/21 18:17 Pulse Oximetry 100 07/14/21 18:17 MDM - Extremity (Nontraumatic) Medical Decision Making Patient presents here with fracture of distal radius no other injuries noted from her fall patient placed in a splint she is to follow-up with orthopedics. Discharge Plan Discharge Patient Disposition: Home Clinical Impression: Fracture of wrist Qualifiers: Encounter type: initial encounter Fracture type: closed Laterality: right Qualified Code(s): S62.101A - Fracture of unspecified carpal bone, right wrist, initial encounter for closed fracture Condition: Stable Prescriptions: No Action morphine 15 mg tablet 15 mg PO TID PRN (Reason: pain) 30 Days Qty: 90 0RF Rx Instructions: fill on or after 12/29/20 Zanaflex 4 mg capsule 4 mg PO TID PRN (Reason: muscle spasticity) 30 Days Qty: 90 0RF venlafaxine 150 mg capsule,extended release 24hr 150 mg PO DAILY Qty: 30 3RF sumatriptan succinate 50 mg tablet 50 mg PO Q2H PRN0RF Rx Instructions: do not exceed 4 doses per 24 hrs morphine 15 mg tablet 15 mg PO TID PRN (Reason: pain) 7 Days Qty: 21 0RF Rx Instructions: fill on or after 12/22/20 hydrocodone-acetaminophen 5-325 mg tablet 1 tab PO Q8H PRN (Reason: pain) Qty: 7 0RF lisinopril-hydrochlorothiazide 20-25 mg Tablet 1 tab PO DAILY@11 0RF Linzess 72 mcg Capsule 72 mcg PO DAILY PRN (Reason: IBS) 0RF Discharge Orders: Discharge ED (Routine); Ordered 07/14/21 Ordered By: Malinda Williamson Referrals: Dipti Howard MD [Physician] - 1-3 days Nveaeh Burt FNP [Primary Care Provider] - Discharge Diet: Advance as tolerated Discharge Activity: Resume usual activity Patient Instructions: Wrist Fracture in Adults (ED) Coding Level of Care Code ED [employer] Goods Drilling Machine Operator for Zabrina Burgess
[2021-07-14 18:37] VITALS: BP 169/123; PULSE 80; RESP 20; O2SAT 100
[2021-07-14] MEDS: morphine 4 mg/mL SDV 1 mL IM (18:54)
[2021-07-14] MEDS: naproxen 500 mg Tablet PO (18:54)
[2021-07-14 19:21] VITALS: BP 169/123; PULSE 80; RESP 20; O2SAT 100
--- NOTE | 2021-07-17 09:15 | DCPLANNER ---
Addendum entered by Hannah Nowak 07/18/21 06:28: Patient had a follow up appointment scheduled for 07.17.[address] Barron at ortho - patient did attend appointment. Original Note: restaurant kitchen manager had message to schedule a follow up appointment for patient with ortho. restaurant kitchen manager called the ortho clinic, spoke with Cintia, gave clinic patients information. restaurant kitchen manager was told that patients information will be printed and reviewed. Clinic will call patient with appointment information.
== END 2021-07-14 19:22 | disposition home or self-care (01) ==
PROVIDERS: Emergency Provider Emergency Medicine; PCP Nurse Practitioner Family
DX: S52.501A Unspecified fracture of the lower end of right radius, initial encounter for closed fracture (principal); E78.5 Hyperlipidemia, unspecified; Z86.711 Personal history of pulmonary embolism; I10 Essential (primary) hypertension; W01.0XXA Fall on same level from slipping, tripping and stumbling without subsequent striking against object, initial encounter
CPT/HCPCS: 29125; 73110; 96372; 99283; J2270

== ENCOUNTER 2021-07-17 14:46 | Outpatient (CLI) | payer MEDICAID, SELFPAY | END 2021-07-17 14:47 | disposition home or self-care (01) | LOC: SPT 14:47 | PROVIDERS: PCP Nurse Practitioner Family; Visit Provider Specialist | DX: Z46.89 Encounter for fitting and adjustment of other specified devices (principal); S62.101D Fracture of unspecified carpal bone, right wrist, subsequent encounter for fracture with routine healing; X58.XXXD Exposure to other specified factors, subsequent encounter | CPT/HCPCS: 97760; L3984 ==

== ENCOUNTER 2021-08-21 22:53 | Emergency (ER) | payer MEDICAID, SELFPAY ==
[2021-08-21 23:00] VITALS: BP 156/111; PULSE 76; RESP 18; TEMP 36.7; O2SAT 100; BMI 48.2
--- NOTE | 2021-08-22 00:31 | XRR_ITS ---
PROCEDURE INFORMATION: Exam: XR Right Wrist Exam date and time: 08/22/2021 12:45 AM Age: 41 years old Clinical indication: Pain; Wrist; Right; Patient HX: F/u TECHNIQUE: Imaging protocol: XR Right wrist. Views: 3 or more views. COMPARISON: CR (UP EX, ) 07/14/2021 6:23 PM FINDINGS: Bones/joints: Healing horizontal impacted fracture through the distal radial metaphysis with sclerotic callus formation. Soft tissues: Normal. XR/XR wrist RT min 3V* [id number] IMPRESSION: Healing horizontal impacted fracture through the distal radial metaphysis with sclerotic callus formation.
--- NOTE | 2021-08-22 00:32 | ED_ITS ---
HPI - Extremity Problem General: Chief complaint: Extremity Injury, Upper Stated complaint: Broken Arm Tingeling\Pain Time Seen by Provider: 08/22/21 00:27 Source: patient Mode of arrival: ambulatory Limitations: no limitations History of Present Illness: 41-year-old female who was seen here 5 weeks ago with a distal radius fracture. She states she has been following with [facility] orthopedics and is currently in a plastic splint. She states that she has been having some increasing pain with tingling down her fingers and arm. She is not in a hard splint. States pain currently is a 7 out of 10. Denies any new injuries. Associated symptoms: Deny chest pain, fever(s) or rash Review of Systems Const: Denies: fever(s), chills, body aches or change in appetite Eyes: Denies: blurry vision or eye discomfort ENMT: Denies: throat pain or dental pain Card: Denies: chest pain Resp: Denies: dyspnea GI: Denies: abdominal pain, nausea, vomiting or diarrhea : Denies: dysuria Musc: Reports: extremity pain; Denies: neck pain or back pain Skin/Breast: Denies: rash Neuro: Denies: headache(s) Psych: Denies: depression Zach/Lymph: Denies: easy bruising All/Imm: Denies: urticaria PFSH ED PFSH: Medical History Chronic low back pain with sciatica Chronic narcotic use ~ 2yrs, for back pain Dyslipidemia borderline by report, not on treatment Encounter for long-term opiate analgesic use History of pulmonary embolism post op, had DVT Hypertension Obesity BMI 39 Opioid contract exists Rosacea Surgical History H/O laminectomy History of back surgery (~2018) History of carpal tunnel release left History of D&C History of hysterectomy due to life threatening bleeding while on anticoagulation for PE/DVT History of laparoscopic adjustable gastric banding History of right knee surgery (~2008) patellar realignment History of tonsillectomy Family History Father Cancer pancreatic cancer Other Diabetes Heart disease Hypertension Social History Smoking and tobacco status: never smoked Alcohol intake: never Lives independently: Yes Household members: spouse Current occupational status: disabled History of recent travel: No Female Reproductive History: Para: 3 Physical Exam Const: COMMON NORMALS: no acute distress, patient oriented x3 and healthy appearing HENMT: COMMON NORMALS: normocephalic and atraumatic HEAD & SCALP: normocephalic and atraumatic Eye: COMMON NORMALS: Equal, round and reactive pupils present and EOMs intact bilaterally PUPIL: Yes Equal, round and reactive pupils present Neck/C-Spine: COMMON NORMALS: full ROM and supple Chest: COMMONS NORMALS: normal inspection of the chest and normal palpation of entire chest wall Resp: COMMON NORMALS: normal respiratory effort, No retractions, No use of accessory muscles and clear to auscultation bilaterally AUSCULTATION: clear to auscultation bilaterally Cardio: COMMON NORMALS: regular rate, regular rhythm and No murmurs present (Cardio) RATE: regular rate RHYTHM: regular rhythm GI: COMMON NORMALS: Normal to inspection, nondistended, normoactive bowel sounds present, Soft to palpation, non-tender and no masses PALPATION: Yes Soft to palpation Extremity: COMMON NORMALS: normal to inspection and full ROM NARRATIVE EXTREMITY EXAM: Patient has tenderness over right distal radius compartments are soft distal pulses intact sensation intact able to make a fist. Neuro: COMMON NORMALS: patient oriented x3, moves all extremities and no focal motor deficits Psych: COMMON NORMALS: mental status grossly normal, Normal thought process present and cooperative THOUGHT PROCESS: Normal thought process present Skin: COMMON NORMALS: no rashes or lesions noted and no wounds GENERAL SKIN EXAM: no rashes or lesions noted Course Vital Signs: Vital signs: Vital Signs Temperature 98.1 F 08/21/21 23:00 Pulse Rate 77 08/22/21 00:34 Respiratory Rate 16 08/22/21 00:34 Blood Pressure 166/104 08/22/21 00:34 Pulse Oximetry 99 08/22/21 00:34 MDM - Extremity (Nontraumatic) Medical Decision Making Patient presents with wrist pain likely from her previous fracture distal pulses sensation intact exam here is benign no signs of compartment syndrome x-ray here shows healing distal radius fracture she is to keep wearing her splint and follow-up with orthopedics in [facility] next week as scheduled return if worsening she understands agrees to plan. Discharge Plan Discharge Patient Disposition: Home Clinical Impression: Closed fracture of distal ends of right radius and ulna Qualifiers: Encounter type: sequela Qualified Code(s): S52.501S - Unspecified fracture of the lower end of right radius, sequela Condition: Stable Prescriptions: New Naprosyn 500 mg tablet 500 mg PO BID PRN (Reason: pain) Qty: 20 0RF No Action venlafaxine 150 mg capsule,extended release 24hr 150 mg PO DAILY Qty: 30 3RF sumatriptan succinate 50 mg tablet 50 mg PO Q2H PRN0RF Rx Instructions: do not exceed 4 doses per 24 hrs (DME) fast form cock up See Rx Instructions .ROUTE .MEDSUPPLY Qty: 1 0RF Rx Instructions: As directed lisinopril-hydrochlorothiazide 20-25 mg Tablet 1 tab PO DAILY@11 0RF Discharge Orders: Discharge ED (Routine); Ordered 08/22/21 Ordered By: Malinda Williamson Referrals: Nevaeh Burt FNP [Primary Care Provider] - 1-3 days Discharge Diet: Advance as tolerated Discharge Activity: Resume usual activity Patient Instructions: Wrist Fracture in Adults (ED) Coding Level of Care Code ED Human Resources Benefits Assistant for Zabrina Fwjennifer Exam Comprehensive
[2021-08-22 00:34] VITALS: BP 166/104; PULSE 77; RESP 16; O2SAT 99
[2021-08-22 01:03] VITALS: BP 132/84; PULSE 74; RESP 16; O2SAT 99
== END 2021-08-22 01:04 | disposition home or self-care (01) ==
PROVIDERS: Emergency Provider Emergency Medicine; PCP Nurse Practitioner Family
DX: S52.601D Unspecified fracture of lower end of right ulna, subsequent encounter for closed fracture with routine healing (principal); S52.501D Unspecified fracture of the lower end of right radius, subsequent encounter for closed fracture with routine healing; X58.XXXD Exposure to other specified factors, subsequent encounter
CPT/HCPCS: 73110; 99283

== ENCOUNTER 2021-09-16 23:51 | Emergency (ER) | payer MEDICAID, SELFPAY ==
[2021-09-17 00:12] VITALS: BP 222/136; PULSE 80; RESP 18; TEMP 36.8; O2SAT 98; BMI 48.9
--- NOTE | 2021-09-17 00:41 | W.ED.EXTPRO ---
HPI - Extremity Problem General: Chief complaint: Extremity Injury, Upper Stated complaint: needs a broken wrist checked Time Seen by Provider: 09/16/21 23:57 History of Present Illness: Patient complain about right wrist pain. Patient did have a distal radial fracture few weeks ago wore a splint for 6 weeks and came to have some problems with that saw the orthopedic doctor and they ordered physical therapy. Patient said this week does she was pull her pants up felt a pop in her right wrist. Went to [facility] they diagnosed her refracture. Patient's report was sent to orthopedic in [place] and she has appointment on Saturday. Patient would like pain medication to help with her wrist discomfort and so she can be seen. Patient also has a history hypertension takes medication morning and said her blood pressure stays up most of the time but is worse because her wrist is hurting. Denies any headache. Associated symptoms: Deny chest pain, fever(s) or rash Review of Systems Const: Denies: fever(s), chills or body aches Eyes: Denies: eye discomfort ENMT: Denies: throat pain Card: Denies: chest pain Resp: Denies: dyspnea GI: Denies: abdominal pain, nausea or vomiting Musc: Reports: joint pain (Since pulling her pants up the other day, and diagnosed with a refracture o) and joint swelling Skin/Breast: Denies: rash Neuro: Denies: headache(s) Psych: Denies: depression or suicidal ideation PENDING SALE TO [facility] ED PFSH: Medical History Chronic low back pain with sciatica Chronic narcotic use ~ 2yrs, for back pain Dyslipidemia borderline by report, not on treatment Encounter for long-term opiate analgesic use History of pulmonary embolism post op, had DVT Hypertension Obesity BMI 39 Opioid contract exists Rosacea Surgical History H/O laminectomy History of back surgery (~2018) History of carpal tunnel release left History of D&C History of hysterectomy due to life threatening bleeding while on anticoagulation for PE/DVT History of laparoscopic adjustable gastric banding History of right knee surgery (~2008) patellar realignment History of tonsillectomy Family History Father Cancer pancreatic cancer Other Diabetes Heart disease Hypertension Social History Smoking and tobacco status: never smoked Alcohol intake: never Lives independently: Yes Household members: spouse Current occupational status: disabled History of recent travel: No Female Reproductive History: Para: 3 Physical Exam Const: COMMON NORMALS: no acute distress, patient oriented x3 and alert HENMT: COMMON NORMALS: normocephalic and external ears normal HEAD & SCALP: normocephalic EXTERNAL EAR: Yes external ears normal Eye: COMMON NORMALS: EOMs intact bilaterally Neck/C-Spine: COMMON NORMALS: no JVD Resp: COMMON NORMALS: normal respiratory effort and No use of accessory muscles Cardio: COMMON NORMALS: no JVD GI: INSPECTION: Yes normal to inspection Extremity: RIGHT UPPER EXTREMITY: Yes wrist (Patient has mild swelling to right wrist pain radial ulnar side) Right wrist: Yes ROM (Appears normal) and Yes neurovascular exam (Intact) Neuro: COMMON NORMALS: patient oriented x3 SENSORIUM/ORIENTATION: Yes alert Psych: COMMON NORMALS: mental status grossly normal Skin: COMMON NORMALS: no rashes or lesions noted GENERAL SKIN EXAM: no rashes or lesions noted Course Vital Signs: Vital signs: Vital Signs Temperature 98.3 F 09/17/21 00:12 Pulse Rate 80 09/17/21 00:12 Respiratory Rate 18 09/17/21 00:12 Blood Pressure 222/136 09/17/21 00:12 Pulse Oximetry 98 09/17/21 00:12 MDM - Extremity (Nontraumatic) Medical Decision Making +3 fracture right wrist patient does have a splint that she wears. Patient has appoint with airfield operations specialist on Saturday patient desiring pain medication to help her make it through until then. Discharge Plan Discharge Patient Disposition: Home Clinical Impression: Closed fracture of distal ends of right radius and ulna, HTN (hypertension) Condition: Stable Prescriptions: New acetaminophen-codeine 300-15 mg tablet 1 tab PO DAILY Qty: 14 0RF No Action venlafaxine 150 mg capsule,extended release 24hr 150 mg PO DAILY Qty: 30 3RF sumatriptan succinate 50 mg tablet 50 mg PO Q2H PRN0RF Rx Instructions: do not exceed 4 doses per 24 hrs (DME) fast form cock up See Rx Instructions .ROUTE .MEDSUPPLY Qty: 1 0RF Rx Instructions: As directed lisinopril-hydrochlorothiazide 20-25 mg Tablet 1 tab PO DAILY@11 0RF Naprosyn 500 mg tablet 500 mg PO BID PRN (Reason: pain) Qty: 20 0RF Discharge Orders: Discharge ED (Routine); Ordered 09/17/21 Ordered By: Sanju Hunter Referrals: Nevaeh Burt FNP [Primary Care Provider] - Discharge Diet: Usual diet Discharge Activity: Increase activity as tolerated Activity Restrictions/Additional Instructions: Take medication as directed. Keep appointment with orthopedic clinic in [place] as scheduled. Monitor blood pressure and take blood pressure medicine as directed. Coding Level of Care Code ED Heavy Mobile Equipment Operator for Zabrina Burgess
[2021-09-17] MEDS: acetaminophen-codeine 300-30mg Tablet 1 TAB PO (01:18)
[2021-09-17 01:21] VITALS: BP 170/103; PULSE 80; RESP 20; O2SAT 99
== END 2021-09-17 01:28 | disposition home or self-care (01) ==
PROVIDERS: Emergency Provider Nurse Practitioner Family; PCP Nurse Practitioner Family
DX: S52.501A Unspecified fracture of the lower end of right radius, initial encounter for closed fracture (principal); S52.601A Unspecified fracture of lower end of right ulna, initial encounter for closed fracture; X58.XXXA Exposure to other specified factors, initial encounter
CPT/HCPCS: 99282

== ENCOUNTER 2021-11-11 22:20 | Emergency (ER) | payer MEDICAID, SELFPAY ==
[2021-11-11 22:39] VITALS: BP 182/99; PULSE 80; RESP 18; TEMP 36.5; O2SAT 97
--- NOTE | 2021-11-12 00:02 | XRR_ITS ---
PROCEDURE INFORMATION: Exam: XR Right Wrist Exam date and time: 11/12/2021 12:40 AM Age: 41 years old Clinical indication: Injury or trauma; Fall; Blunt trauma (contusions or hematomas); Wrist; Right; Additional info: Injury, previous FX TECHNIQUE: Imaging protocol: Radiologic exam of the Right wrist. Views: 3 or more views. COMPARISON: CR (UP EXM, ) 08/22/2021 12:45 AM FINDINGS: Bones/joints: Prior distal radius fracture is healed. No acute fracture lucency identified. Persistent widening DRUJ. Mild ulnar positive variance. Carpal bones are unremarkable. Soft tissues: Normal. XR/XR wrist RT min 3V* [id number] IMPRESSION: 1. No acute osseous abnormality. 2. Persistent DRUJ widening.
== END 2021-11-12 02:00 | disposition left against medical advice (07) ==
PROVIDERS: Emergency Provider Family Medicine; PCP Nurse Practitioner Family
DX: Z53.21 Procedure and treatment not carried out due to patient leaving prior to being seen by health care provider (principal); M25.531 Pain in right wrist
CPT/HCPCS: 73110

== ENCOUNTER 2021-11-14 14:47 | Outpatient (CLI) | payer MEDICAID, SELFPAY ==
[2021-11-14 15:47] LABS: Basophils # 0.1 10^3/uL (0.0-0.1); Basophils % 0.7 %; Eosinophils # 0.5 10^3/uL (0.0-0.8); Eosinophils % 3.7 %; Hematocrit 39.8 % (37.0-47.0); Hemoglobin 13.3 g/dL (11.5-15.3); Lymphocytes # 2.5 10^3/uL (0.8-4.8); Lymphocytes % 20.5 %; Mean Corpuscular HGB Conc 33.4 g/dL (30.0-36.0); Mean Corpuscular Volume 89.6 fl (81-99); Mean Platelet Volume 10.5 fL (7.4-10.4); Monocytes # 0.6 10^3/uL (0.2-0.9); Monocytes % 5.3 %; Neutrophils # 8.41 10^3/uL (1.8-7.7); Neutrophils % 69.1 %; Nucleated Red Blood Cells % 0 %; Platelet Count 281 10^3/cmm (130-400); Red Blood Count 4.44 10^6/uL (4.1-5.3); White Blood Count 12.2 10^3/uL (4.0-10.0)
[2021-11-14 16:13] LABS: Alanine Aminotransferase 32 U/L (0-33); Albumin Level 4.1 g/dL (3.5-5.2); Alkaline Phosphatase 106 IU/L (35-105); Anion Gap 16.5 (5-19); Aspartate Amino Transferase 26 U/L (0-32); Blood Urea Nitrogen 15 mg/dL (6-20); Calcium 8.8 mg/dL (8.5-10.5); Carbon Dioxide 21 mmol/L (22-29); Chloride 104 mmol/L (98-107); Cholesterol 199 mg/dL (0-200); Globulin 3.4 g/dL (1.3-4.6); Glomerular Filtration Rate 78.3 mL/min (90-130); Glucose 80 mg/dL (65-115); HDL Cholesterol 39 mg/dL (60-100); LDL Cholesterol Calculated 132 mg/dL (50-129); LDL HDL Ratio 3.38 RATIO (0.00-3.22); Osmolality Calculated 286 mOsm/kg (285-295); Potassium 3.5 mmol/L (3.5-5.1); Sodium 138 mmol/L (136-145); Thyroid Stimulating Hormone 2.32 uIU/mL (0.27-4.20); Total Bilirubin 0.4 mg/dL (0.15-1.2); Total Protein 7.5 g/dL (6.6-8.7); Triglycerides 139 mg/dL (0-150)
== END 2021-11-14 14:48 | disposition home or self-care (01) ==
PROVIDERS: PCP Family Medicine; Visit Provider Family Medicine
DX: Z76.89 Persons encountering health services in other specified circumstances (principal); E66.01 Morbid (severe) obesity due to excess calories; I10 Essential (primary) hypertension; M79.641 Pain in right hand; Z71.3 Dietary counseling and surveillance
CPT/HCPCS: 80053; 80061; 84443; 85025

== ENCOUNTER 2022-01-22 14:24 | Emergency (ER) | payer MEDICAID, SELFPAY ==
[2022-01-22 14:32] VITALS: TEMP 36.1; BMI 49.1
--- NOTE | 2022-01-22 16:13 | XRR_ITS ---
PROCEDURE INFORMATION: Exam: XR Lumbosacral Spine Exam date and time: 01/22/2022 4:31 PM Age: 41 years old Clinical indication: Injury or trauma; Blunt trauma (contusions or hematomas); Injury details: Patient is a 41-year-old female presents to ED today for evaluation of lower back pain/injury. Patient tells me she has a chronic longstanding history of lower back pain. She states a few days ago she was push mowing her yard when she accidentally stepped into a hole and fell. She states since that time her lower back pain has been even more so painful. She states she had another episode following that where she felt like her right leg gave out causing her to fall again. Pain is localized to her midline lower back and does seem to occasionally radiate down into her right leg; Additional info: Fall/injury TECHNIQUE: Imaging protocol: Radiologic exam of the lumbosacral spine. Views: 2 or 3 views. COMPARISON: CR XR lumbar spine 2-3V* [id number] 12/18/2020 8:58 PM FINDINGS: Bones/joints: No acute fracture. Normal alignment. Degenerative disc disease with disc space narrowing, vacuum disc phenomenon, and endplate sclerotic changes at L4-L5 and L5-S1. Soft tissues: Unremarkable. XR/XR lumbar spine 2-3V* 10003 IMPRESSION: No acute findings. Degenerative disc disease at L4-L5 and L5-S1.
--- NOTE | 2022-01-22 16:14 | W.ED.BACK ---
HPI - Back Pain/Injury General: Chief Complaint: Fall Stated Complaint: Fall Time Seen by Provider: 01/22/22 16:01 Source: patient Mode of arrival: ambulatory Limitations: no limitations History of Present Illness: Patient is a 41-year-old female presents to ED today for evaluation of lower back pain/injury. Patient tells me she has a chronic longstanding history of lower back pain. She states a few days ago she was push mowing her yard when she accidentally stepped into a hole and fell. She states since that time her lower back pain has been even more so painful. She states she had another episode following that where she felt like her right leg gave out causing her to fall again. Patient states she has seen her PCP for her lower back pain and has been referred to pain management. She states pain is localized to her midline lower back and does seem to occasionally radiate down into her right leg. She is not having any urinary retention or bowel incontinence. No other injuries related or sustained to her falls. MD elicited complaint: back pain Pertinent past history: prior back pain and recent trauma Onset (ago): day(s) Timing: constant Severity: severe Similar Symptoms Previously: Yes Location: lumbar spine Radiation: right leg below the knee Exacerbating factors: movement, walking and lifting Relieving factors: none Associated symptoms: Reports difficulty walking (secondary to pain); Deny abdominal pain, chills, dysuria, fatigue, fever(s) or hematuria Work related injury: No Review of Systems Const: Denies: fever(s), chills, body aches, fatigue or malaise Card: Denies: chest pain Resp: Denies: dyspnea GI: Denies: abdominal pain : Denies: flank pain, dysuria or hematuria Musc: Reports: back pain; Denies: neck pain, extremity pain, extremity swelling, joint pain, joint swelling, joint redness or joint warmth Skin/Breast: Denies: rash Neuro: Reports: difficulty walking (secondary to pain); Denies: headache(s), numbness in extremities, weakness in extremities, sensory changes, lack of coordination or dizziness [facility] ED PFSH: Medical History Chronic low back pain with sciatica Chronic narcotic use ~ 2yrs, for back pain Dyslipidemia borderline by report, not on treatment Encounter for long-term opiate analgesic use History of pulmonary embolism post op, had DVT Hypertension Obesity BMI 39 Opioid contract exists Rosacea Surgical History H/O laminectomy History of back surgery (~2017) History of carpal tunnel release left History of D&C History of hysterectomy due to life threatening bleeding while on anticoagulation for PE/DVT History of laparoscopic adjustable gastric banding History of right knee surgery (~2008) patellar realignment History of tonsillectomy Family History Father Cancer pancreatic cancer Other Diabetes Heart disease Hypertension Social History Smoking and tobacco status: current every day smoker (1 ppd) cigarettes [ Other cigarette details: .5 pack per day] Alcohol intake: never Lives independently: Yes Household members: spouse Current occupational status: disabled History of recent travel: No Female Reproductive History: Para: 3 Physical Exam Const: COMMON NORMALS: no acute distress, patient oriented x3, no limitations and alert GENERAL APPEARANCE: cooperative NUTRITIONAL APPEARANCE: obese morbidly obese ORIENTATION/CONSCIOUSNESS: Yes awake, Yes oriented to person, Yes oriented to place and Yes oriented to time HENMT: COMMON NORMALS: normocephalic and atraumatic HEAD & SCALP: normal to inspection, normocephalic and atraumatic Resp: COMMON NORMALS: normal respiratory effort Cardio: COMMON NORMALS: regular rate and regular rhythm RATE: regular rate RHYTHM: regular rhythm GI: COMMON NORMALS: Normal to inspection, nondistended, normoactive bowel sounds present, Soft to palpation and non-tender PALPATION: Yes Soft to palpation : COMMON NORMALS: Yes no CVA tenderness BLADDER/KIDNEY EXAM: Yes no CVA tenderness Back/Pelvis: COMMON NORMALS: no CVA tenderness THORACIC SPINE/UPPER BACK: Yes normal to inspection, Yes thoracic ROM normal, No pain with ROM, No thoracic spinal tenderness, No paraspinal muscle tenderness and No paraspinal muscle spasm LUMBAR SPINE/LOWER BACK: Yes ROM limited, Yes pain with ROM, Yes lumbar spinal tenderness, Yes paraspinal muscle tenderness (across lower back), No paraspinal muscle spasm and Yes straight leg raise positive right PELVIS: Yes buttocks normal SACRUM: no tenderness COCCYX: no tenderness Extremity: COMMON NORMALS: normal to inspection, full ROM, capillary refill normal, no joint enlargement, no clubbing, cyanosis or edema, no calf tenderness and no pedal edema GENERAL: Yes normal exam except as noted Neuro: CRISTEL COMA SCALE: document GCS findings Cristel coma scale eye opening: Spontaneous [place] coma scale verbal response: Orientated [place] coma scale motor response: Obey commands Cristel coma scale total score: 15 COMMON NORMALS: patient oriented x3, moves all extremities, no focal motor deficits, no sensory deficits noted, deep tendon reflexes 2+ bilaterally and gait normal SENSORIUM/ORIENTATION: Yes alert, Yes oriented to person, Yes oriented to place and Yes oriented to time MOTOR EXAM: 5/5 motor strength present throughout Skin: COMMON NORMALS: no rashes or lesions noted GENERAL SKIN EXAM: no rashes or lesions noted Course Vital Signs: Vital signs: Vital Signs Temperature 97.0 F L 01/22/22 14:32 Respiratory Rate 16 01/22/22 17:28 MDM - Back Pain/Injury Medical Decision Making Patient is a 41-year-old female who presents to ED today with a complaint of acute on chronic lower back pain following 2 separate falls. XR does not show any acute fractures. Patient feels better after medications given here. Recommend she follow-up with primary care in 1 to 2 weeks if symptoms do not seem to be improving with prescriptions provided today. Labs Radiology Impressions Lumbar Spine X-Ray 01/22/22 16:13 IMPRESSION: No acute findings. Degenerative disc disease at L4-L5 and L5-S1. Discharge Plan Discharge Patient Disposition: Home Clinical Impression: Low back pain Qualifiers: Chronicity: chronic Back pain laterality: midline Sciatica presence: with sciatica Sciatica laterality: sciatica of right side Qualified Code(s): M54.41 - Lumbago with sciatica, right side Condition: Stable Prescriptions: New methocarbamol 500 mg tablet 1,000 mg PO Q8H Qty: 30 0RF prednisone 10 mg tablet 60 mg PO DAILY 5 Days Qty: 30 0RF tramadol 50 mg tablet 50 mg PO Q6H PRN (Reason: pain) Qty: 14 0RF diclofenac sodium 50 mg tablet,delayed release (DR/EC) 50 mg PO Q12H PRN (Reason: pain) Qty: 20 0RF Discontinued prednisone 20 mg tablet See Rx Instructions .Route .COMPLEX Qty: 26 0RF Rx Instructions: 3 tabs x 4 days, then 2 tabs x 4 days, then 1 tab x 4 days, then 1/2 tab x 4 days. acetaminophen-codeine 300-15 mg tablet 1 tab PO BID PRN (Reason: pain) Qty: 20 0RF No Action bupropion HCl 150 mg tablet extended release 24 hr 150 mg PO QAM Qty: 30 5RF Emgality Pen 120 mg/mL pen injector 240 mg SUBCUT ONCE Qty: 1 0RF Rx Instructions: Loading dose for the first month then 120mg/mL after Emgality Pen 120 mg/mL pen injector 120 mg SUBCUT ONCE Qty: 1 2RF lisinopril-hydrochlorothiazide 20-25 mg Tablet 1 tab PO DAILY@11 Discharge Orders: Discharge ED (Routine); Ordered 01/22/22 Ordered By: Suzan Hoffman Referrals: Sb Le DO [Primary Care Provider] - Coding Level of Care Code ED Sound Ranging Crewmember for Chg Fwd Exam Comprehensive
[2022-01-22] MEDS: orphenadrine 30 mg/mL Inj 2 mL 60 MG IM (16:30)
[2022-01-22] MEDS: ketorolac 60 mg/2 mL INJ IM (16:30)
[2022-01-22] MEDS: dexamethasone 10 mg/mL INJ 8 MG IM (16:30)
[2022-01-22 17:28] VITALS: RESP 16
[2022-01-22] MEDS: morphine 4 mg/mL SDV 1 mL IM (17:28)
== END 2022-01-22 17:27 | disposition home or self-care (01) ==
PROVIDERS: Emergency Provider Physician Assistant; PCP Family Medicine
DX: M54.41 Lumbago with sciatica, right side (principal); E78.5 Hyperlipidemia, unspecified; I10 Essential (primary) hypertension; F17.210 Nicotine dependence, cigarettes, uncomplicated
CPT/HCPCS: 72100; 96372; 99284; J1100; J1885; J2270; J2360

== ENCOUNTER → 2022-02-21 15:18 | Outpatient (BNVA) | payer MEDICAID, SELFPAY | PROVIDERS: PCP Family Medicine; Visit Provider Emergency Medicine | DX: J06.9 Acute upper respiratory infection, unspecified (principal) | CPT/HCPCS: 87426 ==

== ENCOUNTER → 2022-03-01 17:05 | Outpatient (BNVA) | payer MEDICAID, SELFPAY | PROVIDERS: PCP Family Medicine; Visit Provider Emergency Medicine | DX: S99.911A Unspecified injury of right ankle, initial encounter (principal); X50.1XXA Overexertion from prolonged static or awkward postures, initial encounter | CPT/HCPCS: 73610 ==

== ENCOUNTER 2022-03-21 17:49 | Emergency (ER) | payer MEDICAID, SELFPAY ==
[2022-03-21 17:59] VITALS: BP 160/90; PULSE 74; RESP 14; TEMP 36.5; O2SAT 96; BMI 49.1
--- NOTE | 2022-03-21 17:59 | XRR_ITS ---
PROCEDURE INFORMATION: Exam: XR Chest Exam date and time: 03/21/2022 8:25 PM Age: 41 years old Clinical indication: Cough and shortness of breath; Additional info: SOB TECHNIQUE: Imaging protocol: Radiologic exam of the chest. Views: 1 view. COMPARISON: CR XR chest 1V portable [id number] 04/23/2021 5:32 PM FINDINGS: Lungs: There is some scarring at the left lung base not significantly changed. Visualized portions of the lungs are otherwise clear. Pleural spaces: Unremarkable. No pleural effusion. No pneumothorax. Heart/Mediastinum: Heart is within normal limits of size. Bones/joints: Unremarkable. XR/XR chest 1V portable [id number] IMPRESSION: No acute infiltrate.
--- NOTE | 2022-03-21 18:06 | ECG_ITS ---
[facility] Test Date: 2022-03-21 Pat Name: Dolorse Carlson Department: Room: Gender: Female Crepe Box Tender: : 1980 Requested By: Jose Choi Order Number: [id number] [place] MD: Ton Mcnulty M.D. Measurements Intervals [place] Rate: 71 P: 44 MD: 156 QRS: 82 QRSD: 103 T: 84 QT: 377 QTc: 412 Interpretive Statements SINUS RHYTHM Compared to ECG 04/23/2021 16:47:14 No significant changes Electronically Signed On 03-22-2022 7:07:34 CDT by Ton Mcnulty M.D. [id number] f
[2022-03-21 18:32] LABS: Basophils # 0.1 10^3/uL (0.0-0.1); Basophils % 0.7 %; Eosinophils # 0.4 10^3/uL (0.0-0.8); Eosinophils % 3.9 %; Hematocrit 39.1 % (37.0-47.0); Hemoglobin 12.7 g/dL (11.5-15.3); Lymphocytes # 2.3 10^3/uL (0.8-4.8); Lymphocytes % 22.7 %; Mean Corpuscular HGB Conc 32.5 g/dL (30.0-36.0); Mean Corpuscular Hemoglobin 30.7 pg (28.0-34.0); Mean Corpuscular Volume 94.4 fl (81-99); Mean Platelet Volume 10.4 fL (7.4-10.4); Monocytes # 0.7 10^3/uL (0.2-0.9); Monocytes % 6.5 %; Neutrophils # 6.73 10^3/uL (1.8-7.7); Neutrophils % 65.5 %; Nucleated Red Blood Cells % 0 %; Platelet Count 245 10^3/cmm (130-400); Red Blood Count 4.14 10^6/uL (4.1-5.3); Red Cell Distribution Width 14.1 % (12.1-15.1); White Blood Count 10.3 10^3/uL (4.0-10.0)
[2022-03-21 18:57] LABS: Alanine Aminotransferase 39 U/L (0-33); Albumin Level 3.7 g/dL (3.5-5.2); Alkaline Phosphatase 98 U/L (35-105); Anion Gap 13.8 (5-19); Aspartate Amino Transferase 28 U/L (0-32); Blood Urea Nitrogen 16 mg/dL (6-20); Calcium 9.6 mg/dL (8.5-10.5); Carbon Dioxide 24 mmol/L (22-29); Chloride 105 mmol/L (98-107); Globulin 3.5 g/dL (1.3-4.6); Glomerular Filtration Rate 68.3 mL/min (90-130); Glucose 107 mg/dL (65-115); Osmolality Calculated 290 mOsm/kg (285-295); Potassium 3.8 mmol/L (3.5-5.1); Sodium 139 mmol/L (136-145); Total Bilirubin 0.2 mg/dL (0.15-1.2); Total Protein 7.2 g/dL (6.6-8.7)
[2022-03-21 20:22] VITALS: BP 195/113; PULSE 77; RESP 22; O2SAT 100
--- NOTE | 2022-03-21 20:25 | CTR_ITS ---
PROCEDURE INFORMATION: Exam: CTA Chest With Contrast Exam date and time: 03/21/2022 8:29 PM Age: 41 years old Clinical indication: Cough and shortness of breath; Additional info: SOB, history of prior p. E. TECHNIQUE: Imaging protocol: Computed tomographic angiography of the chest with contrast. 3D rendering (Not supervised by radiologist): MIP and/or 3D reconstructed images were created by the technologist. Radiation optimization: All CT scans at this facility use at least one of these dose optimization techniques: automated exposure control; mA and/or kV adjustment per patient size (includes targeted exams where dose is matched to clinical indication); or iterative reconstruction. Contrast material: OMNIPAQUE 350; Contrast volume: 95 ml; Contrast route: INTRAVENOUS (IV); COMPARISON: CR (CHEST, ) 03/21/2022 8:25 PM RADIATION DOSE METRICS: Total DLP (mGy-cm): 532.17 FINDINGS: Limitations: Suboptimal/less than robust opacification the pulmonary arterial tree. Pulmonary arteries: There is no evidence of filling defects within the pulmonary arterial circulation to suggest pulmonary embolism. Aorta: There is no thoracic aortic aneurysm or dissection. Lungs: Lungs are clear. Pleural spaces: Unremarkable. No pneumothorax. No pleural effusion. Heart: Unremarkable. No cardiomegaly. No pericardial effusion. Lymph nodes: There is no evidence of lymphadenopathy. Stomach and bowel: There are multiple small vascular coils seen associated with the lesser curvature of the stomach and the distal esophagus. Please correlate with the patient's clinical and procedural history. Bones/joints: Unremarkable. No acute fracture. Soft tissues: Unremarkable. CT/CT angio chest PE protcl [id number] IMPRESSION: Study somewhat limited due to timing of contrast injection but no evidence of pulmonary embolism.
--- NOTE | 2022-03-21 20:28 | W.ED.SOB ---
HPI - SOB/Dyspnea General: Chief Complaint: Shortness of Breath/Dyspnea Stated Complaint: SOB Time Seen by Provider: 03/21/22 20:22 Source: patient Mode of arrival: ambulatory Limitations: no limitations History of Present Illness: HPI Narrative: 41-year-old female who states that she has been having cough over the last 3 days along with shortness of breath over that time. She states her main concern is she did have a recent trip to [place] and back and is has a history of pulm embolism 5 years ago along with DVT and was concerned she may have another. She had some mild chest pain denies any fever she is in no distress here pulse ox 100%. Associated symptoms: Deny abdominal pain, chest pain, fever(s), nausea or vomiting Review of Systems Const: Denies: fever(s), chills, body aches or change in appetite Eyes: Denies: blurry vision or eye discomfort ENMT: Denies: throat pain or dental pain Card: Denies: chest pain Resp: Reports: dyspnea GI: Denies: abdominal pain, nausea, vomiting or diarrhea : Denies: dysuria Musc: Denies: neck pain or back pain Skin/Breast: Denies: rash Neuro: Denies: headache(s) Psych: Denies: depression Zach/Lymph: Denies: easy bruising All/Imm: Denies: urticaria PFSH ED PFSH: Medical History Chronic low back pain with sciatica Chronic narcotic use ~ 2yrs, for back pain Dyslipidemia borderline by report, not on treatment Encounter for long-term opiate analgesic use History of pulmonary embolism post op, had DVT Hypertension Obesity BMI 39 Opioid contract exists Rosacea Surgical History H/O laminectomy History of back surgery (~2018) History of carpal tunnel release left History of D&C History of hysterectomy due to life threatening bleeding while on anticoagulation for PE/DVT History of laparoscopic adjustable gastric banding History of right knee surgery (~2008) patellar realignment History of tonsillectomy Family History Father Cancer pancreatic cancer Other Diabetes Heart disease Hypertension Social History Smoking and tobacco status: never smoked Alcohol intake: never Lives independently: Yes Household members: spouse Current occupational status: disabled History of recent travel: No Female Reproductive History: Para: 3 Spontaneous abortions: No Physical Exam Const: COMMON NORMALS: no acute distress, patient oriented x3 and healthy appearing HENMT: COMMON NORMALS: normocephalic and atraumatic HEAD & SCALP: normocephalic and atraumatic Eye: COMMON NORMALS: Equal, round and reactive pupils present and EOMs intact bilaterally PUPIL: Yes Equal, round and reactive pupils present Neck/C-Spine: COMMON NORMALS: full ROM and supple Chest: COMMONS NORMALS: normal inspection of the chest and normal palpation of entire chest wall Resp: COMMON NORMALS: normal respiratory effort, No retractions, No use of accessory muscles and clear to auscultation bilaterally AUSCULTATION: clear to auscultation bilaterally Cardio: COMMON NORMALS: regular rate, regular rhythm and No murmurs present (Cardio) RATE: regular rate RHYTHM: regular rhythm GI: COMMON NORMALS: Normal to inspection, nondistended, normoactive bowel sounds present, Soft to palpation, non-tender and no masses PALPATION: Yes Soft to palpation Extremity: COMMON NORMALS: normal to inspection and full ROM Neuro: COMMON NORMALS: patient oriented x3, moves all extremities and no focal motor deficits Psych: COMMON NORMALS: mental status grossly normal, Normal thought process present and cooperative THOUGHT PROCESS: Normal thought process present Skin: COMMON NORMALS: no rashes or lesions noted and no wounds GENERAL SKIN EXAM: no rashes or lesions noted Course Vital Signs: Vital signs: Vital Signs Temperature 97.7 F 03/21/22 17:59 Pulse Rate 89 03/21/22 20:43 Respiratory Rate 20 H 03/21/22 20:43 Blood Pressure 195/113 03/21/22 20:22 Pulse Oximetry 99 03/21/22 20:43 Oxygen Delivery Me thod 03/21/22 20:43 MDM - SOB/Dyspnea Medical Decision Making Patient presents with dyspnea she is well-appearing here troponins are normal her CT of her chest showed no PE or pneumonia COVID is negative she been well-appearing here in no distress pulse ox is normal she is stable for discharge she is to follow-up with PCP and return if worsening. Lab Data : 03/21/22 18:16 03/21/22 18:16 Labs/Radiology: Radiology Impressions Chest X-Ray 03/21/22 17:59 IMPRESSION: No acute infiltrate. Chest CTA 03/21/22 20:25 IMPRESSION: Study somewhat limited due to timing of contrast injection but no evidence of pulmonary embolism. Venous Duplex 03/21/22 20:31 IMPRESSION: No evidence of deep vein thrombosis. Laboratory Results WBC 10.3 10^3/uL (4.0-10.0) H 03/21/22 18:16 RBC 4.14 10^6/uL (4.1-5.3) 03/21/22 18:16 Hgb 12.7 g/dL (11.5-15.3) 03/21/22 18:16 Hct 39.1 % (37.0-47.0) 03/21/22 18:16 MCV 94.4 fl (81-99) 03/21/22 18:16 MCH 30.7 pg (28.0-34.0) 03/21/22 18:16 MCHC 32.5 g/dL (30.0-36.0) 03/21/22 18:16 RDW 14.1 % (12.1-15.1) 03/21/22 18:16 Plt Count 245 10^3/cmm (130-400) 03/21/22 18:16 MPV 10.4 fL (7.4-10.4) 03/21/22 18:16 Neut % (Auto) 65.5 % 03/21/22 18:16 Lymph % (Auto) 22.7 % 03/21/22 18:16 Miller % (Auto) 6.5 % 03/21/22 18:16 Eos % (Auto) 3.9 % 03/21/22 18:16 Baso % (Auto) 0.7 % 03/21/22 18:16 Neut # (Auto) 6.73 10^3/uL (1.8-7.7) 03/21/22 18:16 Lymph # (Auto) 2.3 10^3/uL (0.8-4.8) 03/21/22 18:16 Miller # (Auto) 0.7 10^3/uL (0.2-0.9) 03/21/22 18:16 Eos # (Auto) 0.4 10^3/uL (0.0-0.8) 03/21/22 18:16 Baso # (Auto) 0.1 10^3/uL (0.0-0.1) 03/21/22 18:16 Nucleated RBC % (auto) 0 % 03/21/22 18:16 Nucleated RBCs # 0.0 /100WBC 03/21/22 18:16 Sodium 139 mmol/L (136-145) 03/21/22 18:16 Potassium 3.8 mmol/L (3.5-5.1) 03/21/22 18:16 Chloride 105 mmol/L (98-107) 03/21/22 18:16 Carbon Dioxide 24 mmol/L (22-29) 03/21/22 18:16 Anion Gap 13.8 (5-19) 03/21/22 18:16 BUN 16 mg/dL (6-20) 03/21/22 18:16 Creatinine 0.9 mg/dL (0.5-0.9) 03/21/22 18:16 GFR Calculation 68.3 mL/min (90-130) L 03/21/22 18:16 Glucose 107 mg/dL (65-115) 03/21/22 18:16 Calculated Osmolality 290 mOsm/kg (285-295) 03/21/22 18:16 Calcium 9.6 mg/dL (8.5-10.5) 03/21/22 18:16 Total Bilirubin 0.2 mg/dL (0.15-1.2) 03/21/22 18:16 AST 28 U/L (0-32) 03/21/22 18:16 ALT 39 U/L (0-33) H 03/21/22 18:16 Alkaline Phosphatase 98 U/L (35-105) 03/21/22 18:16 Troponin T Baseline 7 ng/L (0-10) 03/21/22 18:16 Troponin T 120 Minute 6.85 ng/L (0-10) 03/21/22 20:41 Delta Troponin T -0.15 ABS# (0-10) L 03/21/22 20:41 Total Protein 7.2 g/dL (6.6-8.7) 03/21/22 18:16 Albumin 3.7 g/dL (3.5-5.2) 03/21/22 18:16 Globulin 3.5 g/dL (1.3-4.6) 03/21/22 18:16 SARS-CoV-2 Ag (Rapid) negative (Negative) 03/21/22 Unknown EKG Data EKG 1: I personally reviewed and interpreted this EKG as follows: EKG Interpretation Date: 03/21/22 EKG interpretation time: 18:05 Interpretation: nsr hr [address] or t wave abnormalities qrs 103 qtc 400 Discharge Plan Discharge Patient Disposition: Home Clinical Impression: Shortness of breath Condition: Stable Prescriptions: No Action acetaminophen-codeine 300-15 mg tablet 1 tab PO Q8H PRN (Reason: pain) Qty: 60 0RF miscellaneous medical supply Misc 1 ea miscellaneous .daily use Qty: 1 0RF Rx Instructions: Please issue Front wheeled walker for daily use due to recurrent loss of balance and frequent falls. methocarbamol 750 mg tablet 750 mg PO Q8H 10 Days Qty: 30 0RF ibuprofen 600 mg tablet 600 mg PO Q8H PRN (Reason: pain) Qty: 30 0RF bupropion HCl 150 mg tablet extended release 24 hr 150 mg PO QAM Qty: 30 5RF Emgality Pen 120 mg/mL pen injector 240 mg SUBCUT ONCE Qty: 1 0RF Rx Instructions: Loading dose for the first month then 120mg/mL after Emgality Pen 120 mg/mL pen injector 120 mg SUBCUT ONCE Qty: 1 2RF lisinopril-hydrochlorothiazide 20-25 mg Tablet 1 tab PO DAILY@11 diclofenac sodium 50 mg tablet,delayed release (DR/EC) 50 mg PO Q12H PRN (Reason: pain) Qty: 20 0RF Discharge Orders: Discharge ED (Routine); Ordered 03/21/22 Ordered By: Malinda Willimason Referrals: Sb Le DO [Primary Care Provider] - 1-3 days Discharge Diet: Advance as tolerated Discharge Activity: Resume usual activity Patient Instructions: Dyspnea (ED) Coding Level of Care Code ED Body Shop Worker for Chg Fwd Exam Comprehensive
--- NOTE | 2022-03-21 20:31 | USR_ITS ---
PROCEDURE INFORMATION: Exam: US Duplex Lower Extremity Veins, Bilateral Exam date and time: 03/21/2022 9:21 PM Age: 41 years old Clinical indication: Edema, localized; Lower extremity, bilateral; Patient HX: Morbid obesity. History of chronic ble edema S/P pulmonary emboli 2106 with lle dvt. ; Additional info: Leg swelling TECHNIQUE: Imaging protocol: Real-time Duplex ultrasound of the bilateral extremities with 2-D marie scale, color Doppler flow and spectral waveform analysis with image documentation. Complete exam focused on the bilateral lower extremity veins. COMPARISON: MR knee RT wo con* [id number] 07/18/2020 9:11 AM FINDINGS: Right deep veins: Unremarkable. The common femoral, femoral, proximal profunda femoral and popliteal veins are patent without thrombus. Normal Doppler waveforms. Normal compressibility and/or augmentation response. Right superficial veins: Saphenofemoral junction is patent without thrombus. Left deep veins: Unremarkable. The common femoral, femoral, proximal profunda femoral and popliteal veins are patent without thrombus. Normal Doppler waveforms. Normal compressibility and/or augmentation response. Left superficial veins: Saphenofemoral junction is patent without thrombus. Soft tissues: Unremarkable. US/[place] [id number] IMPRESSION: No evidence of deep vein thrombosis.
[2022-03-21 20:43] VITALS: PULSE 89; RESP 20; O2SAT 99
[2022-03-21] MEDS: iohexol 350 mg/mL 100 mL Btl IV (20:50)
[2022-03-21 20:54] LABS: Troponin(5th) Baseline 7 ng/L (0-10)
[2022-03-21 21:23] LABS: SARS Covid-2 Antigen negative (Negative)
[2022-03-21 21:28] LABS: Troponin 5 2HR 6.85 ng/L (0-10)
[2022-03-21 21:51] LABS: Troponin 5 2HR Delta -0.15 ABS# (0-10)
[2022-03-21 22:27] VITALS: BP 174/87; PULSE 66; RESP 17; O2SAT 100
== END 2022-03-21 22:29 | disposition home or self-care (01) ==
PROVIDERS: Emergency Provider Emergency Medicine; PCP Family Medicine
DX: R06.02 Shortness of breath (principal); Z20.822 Contact with and (suspected) exposure to COVID-19; E78.5 Hyperlipidemia, unspecified; I10 Essential (primary) hypertension
CPT/HCPCS: 36415; 71045; 71275; 80053; 84484; 85025; 87426; 93005; 93970; 99285; Q9967

== ENCOUNTER 2022-04-09 13:30 | Outpatient (CLI) | payer MEDICAID, SELFPAY ==
--- NOTE | 2022-04-09 13:43 | XR_ITS ---
WS: [id number] Exam: XR lumbar spine f/e only [id number] Date/Time of Exam: 04/09/2022 1:43 PM Reason For Exam: POSTLAMINECTOMY SYNDROME No flexion or extension instability noted. Degenerative vacuum disks at L4-5 and L5-S1. Facet DJD at L4-5 and L5-S1. XR/XR lumbar spine f/e only [id number] IMPRESSION: 1. No acute fracture or instability identified. 2. Degenerative disc changes and facet DJD at L4-5 and L5-S1 as above.
== END 2022-04-09 13:31 | disposition home or self-care (01) ==
PROVIDERS: PCP Family Medicine; Visit Provider Nurse Practitioner
DX: M96.1 Postlaminectomy syndrome, not elsewhere classified (principal); M47.896 Other spondylosis, lumbar region; M47.897 Other spondylosis, lumbosacral region
CPT/HCPCS: 72120

== ENCOUNTER → 2022-04-10 09:12 | Outpatient (BNVA) | payer MEDICAID, SELFPAY | PROVIDERS: PCP Family Medicine; Visit Provider Orthopaedic Surgery | DX: M54.16 Radiculopathy, lumbar region (principal); M51.36 Other intervertebral disc degeneration, lumbar region | CPT/HCPCS: 72020; 99204 ==

== ENCOUNTER 2022-06-18 20:00 | Outpatient (CLI) | payer MEDICAID, SELFPAY | END 2022-06-18 20:01 | disposition home or self-care (01) | LOC: SLEEP 06-21 09:53 | PROVIDERS: PCP Family Medicine; Visit Provider Anesthesiology Pain Medicine | DX: G47.33 Obstructive sleep apnea (adult) (pediatric) (principal) | CPT/HCPCS: 95810 ==

== ENCOUNTER 2022-07-04 21:49 | Emergency (ER) | payer MEDICAID, SELFPAY ==
[2022-07-04 21:57] VITALS: BP 190/90; PULSE 76; RESP 20; TEMP 36.4; O2SAT 98; BMI 48.2
--- NOTE | 2022-07-04 22:03 | W.ED.BACK ---
HPI - Back Pain/Injury General: Chief Complaint: Back Pain/Injury Stated Complaint: back pain Time Seen by Provider: 07/04/22 22:03 History of Present Illness: 42-year-old female comes in today for complaints of increased pain and discomfort to the lower back. Patient does have intervertebral disc disease of the lumbar spine. Patient reports that she has been more active lately and believes that that has aggravated her pain. Patient presently is being managed with pain management and orthopedic victims advocate clerk/specialist. Patient denies any fever loss of bowel or bladder control. Patient appears nontoxic. Review of Systems Musc: Reports: back pain PFSH ED PFSH: Medical History Chronic low back pain with sciatica Chronic narcotic use ~ 2yrs, for back pain Dyslipidemia borderline by report, not on treatment Encounter for long-term opiate analgesic use History of pulmonary embolism post op, had DVT Hypertension Obesity BMI 39 Opioid contract exists Rosacea Surgical History H/O laminectomy History of back surgery (~2017) History of carpal tunnel release left History of D&C History of hysterectomy due to life threatening bleeding while on anticoagulation for PE/DVT History of laparoscopic adjustable gastric banding History of right knee surgery (~2008) patellar realignment History of tonsillectomy Family History Father Cancer pancreatic cancer Other Diabetes Heart disease Hypertension Social History Smoking and tobacco status: never smoked Alcohol intake: never Lives independently: Yes Household members: spouse Current occupational status: disabled History of recent travel: No Female Reproductive History: Para: 3 Spontaneous abortions: No Physical Exam HENMT: COMMON NORMALS: normocephalic HEAD & SCALP: normocephalic Neck/C-Spine: COMMON NORMALS: full ROM Resp: COMMON NORMALS: normal respiratory effort Cardio: COMMON NORMALS: regular rate and regular rhythm RATE: regular rate RHYTHM: regular rhythm Back/Pelvis: LUMBAR SPINE/LOWER BACK: Yes paraspinal muscle tenderness Extremity: COMMON NORMALS: normal to inspection Skin: COMMON NORMALS: turgor normal GENERAL SKIN EXAM: turgor normal Course Vital Signs: Vital signs: Vital Signs Temperature 97.6 F 07/04/22 21:57 Pulse Rate 76 07/04/22 21:57 Respiratory Rate 20 H 07/04/22 21:57 Blood Pressure 190/90 07/04/22 21:57 Pulse Oximetry 98 07/04/22 21:57 Oxygen Delivery Me thod 07/04/22 21:57 MDM - Back Pain/Injury Medical Decision Making 42-year-old female comes in today for complaints of lower back pain. On exam patient moves well with minimal to no deficits noted. Patient does have some tenderness to the paraspinous muscles of the right lower back. Negative leg lift test. No cauda equina signs. Differential diagnosis includes but not limited to intervertebral disc disease, facet arthropathy, lumbar strain. Reviewed exam with patient with recommendations for treatment of acute exacerbation of chronic back pain. Patient was given 30 mg Toradol, 10 mg dexamethasone, and 1 mg of hydromorphone. Patient was recommended continue with routine care and follow-up with specialist or primary care for further instructions. No signs of serious illness or injury was noted. Discharge Plan Discharge Patient Disposition: Home Clinical Impression: Lumbar back pain with radiculopathy affecting right lower extremity Condition: Stable Prescriptions: No Action miscellaneous medical supply Misc 1 ea miscellaneous .daily use Qty: 1 0RF Rx Instructions: Please issue Front wheeled walker for daily use due to recurrent loss of balance and frequent falls. escitalopram oxalate [Lexapro] 10 mg tablet 10 mg PO DAILY Qty: 30 2RF Rx Instructions: Take 1/2 tab x 7 days then increase to 1 tab daily. acetaminophen-codeine 300-15 mg tablet 1 tab PO Q8H PRN (Reason: pain) Qty: 30 0RF bupropion HCl 150 mg tablet extended release 24 hr 150 mg PO QAM Qty: 30 5RF oxycodone-acetaminophen [Percocet] 7.5-325 mg tablet 1 tab PO QID PRN amoxicillin-pot clavulanate 875-125 mg tablet 1 tab PO BID 5 Days Qty: 10 0RF albuterol sulfate [Ventolin HFA] 90 mcg/actuation HFA aerosol inhaler 2 puff inhalation Q6H PRN (Reason: shortness of breath or wheezing) Qty: 8.5 0RF Emgality Pen 120 mg/mL pen injector 240 mg SUBCUT ONCE Qty: 1 0RF Rx Instructions: Loading dose for the first month then 120mg/mL after Emgality Pen 120 mg/mL pen injector See Rx Instructions .ROUTE .COMPLEX Qty: 1 0RF Dose Instruction: INJECT 120MG SUBCUTANEOUSLY ONCE Rx Instructions: INJECT 120MG SUBCUTANEOUSLY ONCE lisinopril-hydrochlorothiazide 20-25 mg Tablet 1 tab PO DAILY@11 diclofenac sodium 50 mg tablet,delayed release (DR/EC) 50 mg PO Q12H PRN (Reason: pain) Qty: 20 0RF Discharge Orders: Discharge ED (Routine); Ordered 07/04/22 Ordered By: Delfino Silva Referrals: Sb Le DO [Primary Care Provider] - Discharge Diet: Usual diet Discharge Activity: Increase activity as tolerated Patient Instructions: Opioid Safety, Pain Management Activity Restrictions/Additional Instructions: Activity as tolerated. Gentle stretching and range of motion exercises. Continue routine care as directed. Follow-up with primary care or specialist for further treatment and evaluation. Return to the emergency department for new concerns or worsening symptoms. Coding Level of Care Code ED Human Resource Management Instructor for Zabrina Burgess
[2022-07-04] MEDS: ketorolac 30 mg/mL INJ IM (22:22)
[2022-07-04] MEDS: HYDROmorphone 1 mg/mL INJ 1 mL IM (22:22)
[2022-07-04] MEDS: dexamethasone 10 mg/mL INJ IM (22:22)
[2022-07-04 22:40] VITALS: BP 131/72; PULSE 87; RESP 18; O2SAT 99
== END 2022-07-04 22:41 | disposition home or self-care (01) ==
PROVIDERS: Emergency Provider Nurse Practitioner Family; PCP Family Medicine
DX: M54.16 Radiculopathy, lumbar region (principal); M54.50 Low back pain, unspecified; E78.5 Hyperlipidemia, unspecified; I10 Essential (primary) hypertension
CPT/HCPCS: 96372; 99284; J1100; J1170; J1885

== ENCOUNTER 2022-07-18 07:35 | Outpatient (CLI) | payer MEDICAID, SELFPAY ==
--- NOTE | 2022-07-18 07:39 | CT_ITS ---
WS: [id number] CT LUMBAR SPINE TECHNIQUE: Noncontrast CT of the lumbar spine with coronal and sagittal reformatted images. CLINICAL INFORMATION: POSTLAMINECTOMY SYNDROME,NOT ELSEWHERE CLASSIFIED COMPARISON: None. DLP: 1147.[address] scans at [facility] use at least one of these dose optimization techniques: automated e xposure control; mA and/or kV adjustment per patient size (includes targeted exams where dose is matc hed to clinical indication); or iterative reconstruction. FINDINGS: L5 is sacralized. Disc space narrowing worse L4-L5 with vacuum disc phenomenon. L1-L2: Tiny LEFT subarticular protrusion. Slight narrowing of the LEFT subarticular recess. Mild face t arthropathy. Spinal canal is patent. Mild LEFT foraminal narrowing. L2-L3: Mild annular bulging. Slight effacement of ventral thecal sac. Mild facet arthropathy. Spinal canal and foramen are patent. L3-L4: Mild annular bulging with mild central canal stenosis. Facet arthropathy with ligamentum flavu m hypertrophy. Mild LEFT and no significant RIGHT foraminal narrowing. Contact of the exiting LEFT L4 nerve root. Slight slight narrowing of the LEFT subarticular recess. L4-L5: Annular bulging with vacuum disc phenomenon. Moderate central canal stenosis. Impingement tra versing L5 nerve roots bilaterally. Moderate RIGHT and mild LEFT foraminal narrowing. Moderate facet arthropathy. Ligamentum flavum hypertrophy. L5-S1: L5 is sacralized on the RIGHT. Disc osteophytic ridging. Impingement LEFT S1 nerve root. Mild LEFT foraminal narrowing. Adrenal glands are normal. Disc space narrowing L4-L5 has progressed compared to 2017. Central canal stenosis L3-L4 and L4-L5 appears slightly progressed. CT/CT lumbar spine wo con* [id number] IMPRESSION: 1. L5 is sacralized on the RIGHT. Disc space narrowing worse L4-L5 with vacuum disc phenomenon. 2. Mild central canal stenosis L3-L4 with moderate facet arthropathy ligamentu m flavum hypertrophy. Mild LEFT L3-L4 foraminal narrowing with contact of the e xiting LEFT L3 nerve root. 3. Moderate central canal stenosis L4-L5 due to annular bulging in combination with facet arthropathy ligamentum flavum hypertrophy. Impingement traversing L 5 nerve roots bilaterally. Moderate RIGHT foraminal narrowing impinges the exit ing RIGHT L4 nerve root. Mild LEFT foraminal narrowing. 4. Evidence of prior laminectomy defects L3-L4 and L4-L5. 5. Lobulated LEFT kidney partially visualized. This can be further evaluated w ith ultrasound.
== END 2022-07-18 07:36 | disposition home or self-care (01) ==
LOC: RAD 07:35
PROVIDERS: PCP Family Medicine; Visit Provider Nurse Practitioner
DX: M96.1 Postlaminectomy syndrome, not elsewhere classified (principal); M48.061 Spinal stenosis, lumbar region without neurogenic claudication
CPT/HCPCS: 72131

== ENCOUNTER 2022-07-19 22:40 | Emergency (ER) | payer MEDICAID, SELFPAY ==
[2022-07-19 22:42] VITALS: BP 175/114; PULSE 69; RESP 18; TEMP 36.7; O2SAT 97
--- NOTE | 2022-07-19 22:52 | W.ED.BACK ---
HPI - Back Pain/Injury General: Chief Complaint: Back Pain/Injury Stated Complaint: back pain Time Seen by Provider: 07/19/22 22:49 History of Present Illness: 42-year-old female comes in today with exacerbation of back pain. Patient reports that she slipped and almost fell causing her to reach out to catch herself. Patient does have some intervertebral disc disease that is pretty significant to the L4-L5 area. Patient denies loss of bowel or bladder control. Patient was unable to get pain under control at home and came into the emergency room for assistance. Patient had recently had a CT of the lumbar spine on the which show significant changes from L2-L3, L3-L4, and L4-L5 areas. Patient does have some stenosis of the foramen in the same areas. Associated symptoms: Deny fever(s) Review of Systems Const: Denies: fever(s) Card: Denies: chest pain Resp: Denies: dyspnea Musc: Reports: back pain Skin/Breast: Denies: rash PFSH ED PFSH: Medical History Chronic low back pain with sciatica Chronic narcotic use ~ 2yrs, for back pain Dyslipidemia borderline by report, not on treatment Encounter for long-term opiate analgesic use History of pulmonary embolism post op, had DVT Hypertension Obesity BMI 39 Opioid contract exists Rosacea Surgical History H/O laminectomy History of back surgery (~2017) History of carpal tunnel release left History of D&C History of hysterectomy due to life threatening bleeding while on anticoagulation for PE/DVT History of laparoscopic adjustable gastric banding History of right knee surgery (~2008) patellar realignment History of tonsillectomy Family History Father Cancer pancreatic cancer Other Diabetes Heart disease Hypertension Social History Smoking and tobacco status: never smoked Alcohol intake: never Lives independently: Yes Household members: spouse Current occupational status: disabled Female Reproductive History: Para: 3 Spontaneous abortions: No Physical Exam Const: COMMON NORMALS: alert HENMT: COMMON NORMALS: normocephalic HEAD & SCALP: normocephalic MOUTH: Normal oral and palatal mucosa present Neck/C-Spine: COMMON NORMALS: full ROM Resp: COMMON NORMALS: normal respiratory effort Cardio: COMMON NORMALS: regular rate and regular rhythm RATE: regular rate RHYTHM: regular rhythm Back/Pelvis: THORACIC SPINE/UPPER BACK: No paraspinal muscle tenderness LUMBAR SPINE/LOWER BACK: Yes paraspinal muscle tenderness Extremity: COMMON NORMALS: normal to inspection Neuro: SENSORIUM/ORIENTATION: Yes alert Skin: COMMON NORMALS: turgor normal GENERAL SKIN EXAM: turgor normal Course Vital Signs: Vital signs: Vital Signs Temperature 98.0 F 07/19/22 22:42 Pulse Rate 69 07/19/22 22:42 Respiratory Rate 18 07/19/22 22:42 Blood Pressure 175/114 07/19/22 22:42 Pulse Oximetry 97 07/19/22 22:42 Oxygen Delivery Me thod 07/19/22 22:42 MDM - Back Pain/Injury Medical Decision Making 42-year-old female comes in today for exacerbation of lower back pain. Patient reports slipping and causing her to extend out to catch herself from falling thus in turn aggravating her back pain. Patient does have chronic degenerative spinal disease with some significant foraminal stenosis. Patient is awaiting surgical intervention. Differential diagnosis includes not limited to lumbar strain, intervertebral disc disease, facet arthropathy, malingering. Patient was medicated with 1 mg of hydromorphone IM, 30 mg of ketorolac IM, and 10 mg dexamethasone for her pain and inflammation. Patient was recommended to use nonpharmaceutical treatment such as ice or heat for further pain relief. Patient was recommended follow-up with primary care pain specialist for alterations in her routine home medications. Patient reported understanding, no signs of serious injury or illness. Discharge Plan Discharge Patient Disposition: Home Clinical Impression: Lumbar radiculopathy Condition: Stable Prescriptions: No Action miscellaneous medical supply Misc 1 ea miscellaneous .daily use Qty: 1 0RF Rx Instructions: Please issue Front wheeled walker for daily use due to recurrent loss of balance and frequent falls. escitalopram oxalate [Lexapro] 10 mg tablet 10 mg PO DAILY Qty: 30 2RF Rx Instructions: Take 1/2 tab x 7 days then increase to 1 tab daily. acetaminophen-codeine 300-15 mg tablet 1 tab PO Q8H PRN (Reason: pain) Qty: 30 0RF bupropion HCl 150 mg tablet extended release 24 hr 150 mg PO QAM Qty: 30 5RF oxycodone-acetaminophen [Percocet] 7.5-325 mg tablet 1 tab PO QID PRN amoxicillin-pot clavulanate 875-125 mg tablet 1 tab PO BID 5 Days Qty: 10 0RF albuterol sulfate [Ventolin HFA] 90 mcg/actuation HFA aerosol inhaler 2 puff inhalation Q6H PRN (Reason: shortness of breath or wheezing) Qty: 8.5 0RF Emgality Pen 120 mg/mL pen injector 240 mg SUBCUT ONCE Qty: 1 0RF Rx Instructions: Loading dose for the first month then 120mg/mL after Emgality Pen 120 mg/mL pen injector See Rx Instructions .ROUTE .COMPLEX Qty: 1 0RF Dose Instruction: INJECT 120MG SUBCUTANEOUSLY ONCE Rx Instructions: INJECT 120MG SUBCUTANEOUSLY ONCE lisinopril-hydrochlorothiazide 20-25 mg Tablet 1 tab PO DAILY@11 diclofenac sodium 50 mg tablet,delayed release (DR/EC) 50 mg PO Q12H PRN (Reason: pain) Qty: 20 0RF Discharge Orders: Discharge ED (Routine); Ordered 07/19/22 Ordered By: Delfino Silva Referrals: bS Le DO [Primary Care Provider] - Discharge Diet: Usual diet Discharge Activity: Increase activity as tolerated Patient Instructions: Opioid Safety, Pain Management Activity Restrictions/Additional Instructions: Activity as tolerated. Drink plenty of water with medication. Follow-up with primary care for further recommendations of treatment for your chronic back pain. Discussed with your pain intensive care ambulance paramedic for other treatment. Return to emergency department for new concerns. Coding Level of Care Code ED Sewing Machine Operator Floorperson for Zabrina Burgess
[2022-07-19] MEDS: ketorolac 30 mg/mL INJ IM (23:10)
[2022-07-19] MEDS: dexamethasone 10 mg/mL INJ IM (23:12)
[2022-07-19] MEDS: HYDROmorphone 1 mg/mL INJ 1 mL IM (23:12)
== END 2022-07-19 23:45 | disposition home or self-care (01) ==
PROVIDERS: Emergency Provider Nurse Practitioner Family; PCP Family Medicine
DX: M54.16 Radiculopathy, lumbar region (principal); E78.5 Hyperlipidemia, unspecified; I10 Essential (primary) hypertension
CPT/HCPCS: 96372; 99284; J1100; J1170; J1885

== ENCOUNTER 2022-07-23 09:23 | Outpatient (CLI) | payer MEDICAID, SELFPAY ==
--- NOTE | 2022-07-23 09:32 | MR_ITS ---
WS: [id number] MRI LUMBAR SPINE NONCONTRAST TECHNIQUE: Sagittal T1, T2 and STIR imaging. Axial T1 and T2 imaging. CLINICAL INFORMATION: pain COMPARISON: CT July 18, 2022 FINDINGS: L5 is sacralized on the RIGHT. Prior laminectomy defects L3-L4 and L4-L5. Small central protrusion ce rvical spine community board member imaging at C5-C6 with mild central canal stenosis. L1-L2: Mild annular bulging. Slight effacement of the ventral thecal sac. Mild facet arthropathy. Spi nal canal and foramen are patent. L2-L3: Mild annular bulging. Slight effacement of the ventral thecal sac. Small LEFT foraminal protru marcio with mild LEFT and no significant RIGHT foraminal narrowing. Mild facet arthropathy. L3-L4: Mild annular bulging. Slight effacement of the ventral thecal sac with mild central canal sten osis. Slight impingement on the traversing LEFT greater than RIGHT L4 nerve roots. Mild LEFT foramina l narrowing. Mild facet arthropathy. L4-L5: Mild annular bulging with slight impingement traversing L5 nerve roots bilaterally. Moderate f acet arthropathy. Moderate RIGHT foraminal narrowing. Impingement on the exiting RIGHT L4 nerve root. LEFT foramen is patent. Moderate to advanced facet arthropathy. L5-S1: L5 is sacralized. Mild facet arthropathy. Spinal canal and foramen are patent. Visualized pelvic bony structures: Normal. Paravertebral soft tissues: Normal. MR/MR lumbar spine wo con* [id number] IMPRESSION: 1. L5 is sacralized. 2. Mild central canal stenosis L3-L4 with slight impingement on traversing LEF T greater than RIGHT L4 nerve roots. Mild LEFT L3-L4 foraminal narrowing. 3. Mild central canal stenosis L4-L5 with slight impingement traversing L5 ner ve roots. Moderate RIGHT L4-L5 foraminal narrowing. 4. Moderate facet arthropathy L3-L4 and L4-L5. 5. Small central protrusion cervical spine community board member imaging with mild central can al stenosis C5-C6.
== END 2022-07-23 09:24 | disposition home or self-care (01) ==
LOC: RAD 09:24
PROVIDERS: PCP Family Medicine; Visit Provider Orthopaedic Surgery
DX: M54.16 Radiculopathy, lumbar region (principal); M48.061 Spinal stenosis, lumbar region without neurogenic claudication; M50.222 Other cervical disc displacement at C5-C6 level
CPT/HCPCS: 72148

== ENCOUNTER → 2022-07-24 15:06 | Outpatient (BNVA) | payer MEDICAID, SELFPAY | PROVIDERS: PCP Family Medicine; Visit Provider Orthopaedic Surgery | DX: M54.16 Radiculopathy, lumbar region (principal) | CPT/HCPCS: 99214 ==

== ENCOUNTER 2022-07-29 17:16 | Outpatient (CLI) | payer MEDICAID, SELFPAY ==
--- NOTE | 2022-07-29 18:54 | XRR_ITS ---
PROCEDURE INFORMATION: Exam: XR Right Knee Exam date and time: 07/29/2022 6:56 PM Age: 42 years old Clinical indication: Pain; Knee; Right; Prior surgery; Surgery type: RT patella repair; Additional info: Right knee pain TECHNIQUE: Imaging protocol: Radiologic exam of the right knee. Views: 3 views. COMPARISON: MR knee RT wo con* [id number] 07/18/2020 9:11 AM FINDINGS: Bones/joints: The medial joint space is well maintained. The lateral joint space is well maintained. No fracture identified. Postsurgical changes in the proximal anterior tibia, with minimal adjacent dystrophic calcifications. Soft tissues: No knee joint effusion is present. XR/XR knee RT 3V* [id number] IMPRESSION: No evidence of acute fracture or dislocation.
== END 2022-07-29 17:17 | disposition home or self-care (01) ==
PROVIDERS: PCP Family Medicine; Visit Provider Nurse Practitioner Family
DX: M25.561 Pain in right knee (principal)
CPT/HCPCS: 73562

== ENCOUNTER 2022-08-02 21:38 | Emergency (ER) | payer MEDICAID, SELFPAY ==
[2022-08-02 21:50] VITALS: BP 172/84; PULSE 75; RESP 18; TEMP 36.6; O2SAT 98
[2022-08-02] MEDS: ondansetron 4 MG Tablet PO (22:29)
[2022-08-02] MEDS: dexamethasone 10 mg/mL INJ IM (22:31)
[2022-08-02] MEDS: HYDROmorphone 1 mg/mL INJ 1 mL 0.5 MG SUBCUT (22:32)
--- NOTE | 2022-08-02 22:33 | ED_ITS ---
HPI - Extremity Problem General: Chief complaint: Extremity Problem,Nontraumatic Stated complaint: Rt Leg Pain\Giving out on here Time Seen by Provider: 08/02/22 21:56 History of Present Illness: Patient is in today for right lower extremity pain. She reports that she has chronic right lower extremity pain. She is having back surgery on 20 August. She reports that she has significant degenerative changes of her lumbar spine and she is having a complete fusion. She states that she has chronic right foot drop as a result and chronic pain in her right lower extremity. She reports that she takes Percocet at home but nothing is helping her pain for the last 3 days. She reports it is a burning pain down her entire right lower extremity. She states that she has tried gabapentin and Lyrica in the past with no effect. She denies any saddle anesthesia, loss of bowel or bladder continence. She reports this pain is all similar pain that she has had chronically just intensified. Associated symptoms: Deny chest pain or fever(s) Review of Systems Const: Denies: fever(s), chills or body aches Card: Denies: chest pain, palpitations, irregular heart rhythm, lightheadedness or syncope Resp: Denies: dyspnea, productive cough or non-productive cough GI: Denies: abdominal pain, nausea or vomiting : Denies: flank pain, difficulty voiding, dysuria, urinary frequency, urinary urgency or urinary hesitancy Musc: Reports: extremity pain Neuro: Denies: headache(s) [facility] ED PFSH: Medical History Chronic low back pain with sciatica Chronic narcotic use ~ 2yrs, for back pain Dyslipidemia borderline by report, not on treatment Encounter for long-term opiate analgesic use History of pulmonary embolism post op, had DVT Hypertension Obesity BMI 39 Opioid contract exists Rosacea Surgical History H/O laminectomy History of back surgery (~2018) History of carpal tunnel release left History of D&C History of hysterectomy due to life threatening bleeding while on anticoagulation for PE/DVT History of laparoscopic adjustable gastric banding History of right knee surgery (~2008) patellar realignment History of tonsillectomy Family History Father Cancer pancreatic cancer Other Diabetes Heart disease Hypertension Social History Smoking and tobacco status: current every day smoker cigarettes [ Other cigarette details: .5 pack per day] Alcohol intake: never Lives independently: Yes Household members: spouse Current occupational status: disabled Female Reproductive History: Para: 3 Spontaneous abortions: No Physical Exam Const: COMMON NORMALS: no acute distress, patient oriented x3 and alert GENERAL APPEARANCE: cooperative ORIENTATION/CONSCIOUSNESS: Yes awake, Yes oriented to person, Yes oriented to place and Yes oriented to time Neck/C-Spine: COMMON NORMALS: full ROM Resp: COMMON NORMALS: normal respiratory effort, No retractions, No use of accessory muscles and clear to auscultation bilaterally EFFORT & INSPECTION: Yes symmetric chest movement AUSCULTATION: clear to auscultation bilaterally Cardio: COMMON NORMALS: regular rate, regular rhythm, S1 normal heart sound present and S2 normal heart sound present RATE: regular rate RHYTHM: regular rhythm HEART SOUNDS: S1 normal heart sound present and S2 normal heart sound present GI: COMMON NORMALS: Normal to inspection, nondistended, normoactive bowel sounds present, Soft to palpation, non-tender, No hepatosplenomegaly present, no masses and no bruits INSPECTION: Yes normal to inspection PALPATION: Yes Soft to palpation and Yes No hepatosplenomegaly present : COMMON NORMALS: Yes no CVA tenderness BLADDER/KIDNEY EXAM: Yes no CVA tenderness Back/Pelvis: COMMON NORMALS: no CVA tenderness Extremity: NARRATIVE EXTREMITY EXAM: Patient is noted to have right foot drop which she reports is chronic. She does have sensation to the right foot and pedal pulses intact. Color is within normal limits to the distal foot. Patient has pain to the right extremity that is not reproducible on exam. Neuro: COMMON NORMALS: patient oriented x3 SENSORIUM/ORIENTATION: Yes alert, Yes oriented to person, Yes oriented to place and Yes oriented to time Psych: COMMON NORMALS: cooperative Course Vital Signs: Vital signs: Vital Signs Temperature 97.9 F 08/02/22 21:50 Pulse Rate 75 08/02/22 21:50 Respiratory Rate 18 08/02/22 21:50 Blood Pressure 172/84 08/02/22 21:50 Pulse Oximetry 98 08/02/22 21:50 Oxygen Delivery Me thod 08/02/22 21:50 MDM - Extremity (Nontraumatic) Medical Decision Making Differentials include neuropathy, lumbar radiculopathy Patient does have significant degenerative changes noted on previous imaging of her lumbar spine. She is set to have surgery with Dr. Cruz on 20 August. She has chronic lumbar radiculopathy and she is treated by the pain clinic with Percocet. I discussed this case with Dr. Williamson who agrees with a one-time dose of Dilaudid and also steroid to help with the patient's current pain level. Patient is agreeable to follow-up with Dr. Cruz tomorrow. Return to the ER as needed for any new or worsening symptoms. Discharge Plan Discharge Patient Disposition: Home Clinical Impression: Lumbar back pain with radiculopathy affecting right lower extremity Condition: Stable Prescriptions: No Action escitalopram oxalate [Lexapro] 10 mg tablet 10 mg PO DAILY Qty: 30 2RF Rx Instructions: Take 1/2 tab x 7 days then increase to 1 tab daily. bupropion HCl 150 mg tablet extended release 24 hr 150 mg PO QAM Qty: 30 5RF oxycodone-acetaminophen [Percocet] 7.5-325 mg tablet 1 tab PO QID PRN albuterol sulfate [Ventolin HFA] 90 mcg/actuation HFA aerosol inhaler 2 puff inhalation Q6H PRN (Reason: shortness of breath or wheezing) Qty: 8.5 0RF (DME) Intraoperative Neuromonitoring See Rx Instructions .ROUTE .MEDSUPPLY Qty: 1 0RF Rx Instructions: As directed Discharge Orders: Discharge ED (Routine); Ordered 08/02/22 Ordered By: Paula Worthington Referrals: Sb Le DO [Primary Care Provider] - Discharge Diet: Usual diet Discharge Activity: Increase activity as tolerated Patient Instructions: Lumbar Radiculopathy (ED) Activity Restrictions/Additional Instructions: Continue medications as previously prescribed at home. Follow-up with spine s benitoeon tomorrow. Return to the ER as needed for new or worsening symptoms Coding Level of Care Code ED Macaroni Maker for Zabrina Burgess
== END 2022-08-02 22:43 | disposition home or self-care (01) ==
PROVIDERS: Emergency Provider Nurse Practitioner Family; PCP Family Medicine
DX: M54.16 Radiculopathy, lumbar region (principal); F17.210 Nicotine dependence, cigarettes, uncomplicated; E78.5 Hyperlipidemia, unspecified; I10 Essential (primary) hypertension
CPT/HCPCS: 96372; 99284; J1100; J1170; Q0162

== ENCOUNTER → 2022-08-08 14:02 | Outpatient (BNVA) | payer MEDICAID, SELFPAY | PROVIDERS: PCP Family Medicine; Visit Provider Orthopaedic Surgery | DX: M25.532 Pain in left wrist (principal) | CPT/HCPCS: 73100; 73110; 99213 ==

== ENCOUNTER 2022-08-13 17:39 | Inpatient (IN) | payer MEDICAID, SELFPAY ==
[2022-08-06 08:58] LABS: Basophils # 0.1 10^3/uL (0.0-0.1); Basophils % 0.8 %; Eosinophils # 0.3 10^3/uL (0.0-0.8); Eosinophils % 1.9 %; Hematocrit 43.4 % (37.0-47.0); Hemoglobin 13.7 g/dL (11.5-15.3); Lymphocytes # 4.5 10^3/uL (0.8-4.8); Lymphocytes % 34.9 %; Mean Corpuscular HGB Conc 31.6 g/dL (30.0-36.0); Mean Corpuscular Hemoglobin 29.2 pg (28.0-34.0); Mean Corpuscular Volume 92.5 fl (81-99); Mean Platelet Volume 10.1 fL (7.4-10.4); Monocytes # 0.8 10^3/uL (0.2-0.9); Monocytes % 6.2 %; Neutrophils % 55.5 %; Nucleated Red Blood Cells % 0 %; Platelet Count 240 10^3/cmm (130-400); Red Blood Count 4.69 10^6/uL (4.1-5.3); Red Cell Distribution Width 13.8 % (12.1-15.1)
[2022-08-06 09:28] LABS: Anion Gap 14.6 (5-19); Blood Urea Nitrogen 19 mg/dL (6-20); Calcium 8.9 mg/dL (8.5-10.5); Carbon Dioxide 27 mmol/L (22-29); Chloride 103 mmol/L (98-107); Glucose 91 mg/dL (65-115); Osmolality Calculated 294 mOsm/kg (285-295); Potassium 3.6 mmol/L (3.5-5.1); Sodium 141 mmol/L (136-145)
--- NOTE | 2022-08-06 17:05 | P.ANESASSM_ITS ---
Pre-Anesthetic Assessment Height/Weight: Height 1.65 m Operation Date: 08/13/22 14:50 Proposed Procedures p Spinal Fusion: L3-S1 Fusion w Cage at L4-5: [id number], M54.16(Not Applicable) - Chevy Cruz DO Familial anesthetic complications: none Was Beta Hector taken within 24 hours: N/A Was Clonidine taken within 24 hours: N/A Social Tobacco and No alcohol Exam alert, oriented x 3 and regular rate & rhythm Airway Submandibular: within normal limits Cervical ROM: within normal limits Mallampati: Class II Pulmonary Chronic Obstructive Pulmonary Disease and Sleep Apnea CV/HEM Hypertension Metabolic Morbid Obesity [facility] Lower Back Pain and Osteoarthritis/DJD Neuropsych Anxiety and Depression Anesthetic Plan ASA status: 3 Anesthesia: General Medications/Allergies Home Medications Medication Instructions Recorded Confirmed Last Taken Type bupropion HCl 150 mg 24 hr tablet, 150 mg PO QAM #30 tabs 12/12/21 08/06/22 08/06/22 Rx extended release escitalopram oxalate 10 mg tablet 10 mg PO DAILY #30 tabs 03/22/22 08/06/22 08/06/22 Rx (Lexapro) albuterol sulfate 90 mcg/actuation 2 puff inhalation Q6H PRN 05/11/22 08/06/22 Unknown Rx aerosol inhaler (Ventolin HFA) shortness of breath or wheezing #8.5 grams Intraoperative Neuromonitoring #1 ea 07/30/22 Unknown Rx DME: Shower Stool #1 ea 08/06/22 Unknown Rx oxycodone-acetaminophen 10 mg-325 10 - 325 tab PO Q4H PRN Pain 08/06/22 08/06/22 08/06/22 History mg tablet (Percocet) Allergies Allergy/AdvReac Type Severity Reaction Status Date / Time hydrocodone Allergy ADR-Nausea Verified 08/06/22 08:19 metoclopramide [From Reglan] Allergy ADR-Itching Verified 08/06/22 08:19 promethazine [From Phenergan] Allergy ADR-Vomitin Verified 08/06/22 08:19 g PFSH Anesthesia Medical History Chronic low back pain with sciatica Chronic narcotic use ~ 2yrs, for back pain Dyslipidemia borderline by report, not on treatment Encounter for long-term opiate analgesic use History of pulmonary embolism post op, had DVT Hypertension Obesity BMI 39 Opioid contract exists Rosacea Surgical History H/O laminectomy History of back surgery (~2017) History of carpal tunnel release left History of D&C History of hysterectomy due to life threatening bleeding while on anticoagulation for PE/DVT History of laparoscopic adjustable gastric banding History of right knee surgery (~2008) patellar realignment History of tonsillectomy Family History Father Cancer pancreatic cancer Other Diabetes Heart disease Hypertension Social History Smoking and tobacco status: current every day smoker cigarettes [ Other cigarette details: .5 pack per day] Alcohol intake: never Lives independently: Yes Household members: spouse Current occupational status: disabled Female Reproductive History Para: 3 Spontaneous abortions: No Data Anesthesia 08/06/22 08:40 08/06/22 08:40 Short CBC 08/06/22 Range/Units 08:40 WBC 13.0 H (4.0-10.0) 10^3/uL Hgb 13.7 (11.5-15.3) g/dL Hct 43.4 (37.0-47.0) % MCV 92.5 (81-99) fl Plt Count 240 (130-400) 10^3/cmm Neut % (Auto) 55.5 % Neut # (Auto) 7.20 (1.8-7.7) 10^3/uL BMP 08/06/22 08:40 Sodium 141 Potassium 3.6 Chloride 103 Carbon Dioxide 27 BUN 19 Creatinine 0.9 Glucose 91 Calcium 8.9 Cardiac Studies: No Data to Display
[2022-08-13] VITALS (25 sets, daily range): BP systolic 123–187; BP diastolic 63–127; PULSE 66–107; RESP 12–22; TEMP 36.1–37.2; O2SAT 87–98; BMI 46.5
--- NOTE | 2022-08-13 | XR_ITS ---
WS: [id number] EXAMINATION: XR lumbar spine 2-3V* [id number] L-SPINE : 3 views REASON FOR EXAM: POST OP COMPARISON: None available. ORDER DATE: 08/13/2022 3:08 PM FINDINGS: Posterior lumbosacral fusion from L3 through S1 bilateral instrumentation noted. In the lumbar verteb ra, there is no evidence of compression deformities or spondylolisthesis. XR/XR lumbar spine 2-3V* [id number] IMPRESSION: Spinal fusion as noted no acute change.
--- NOTE | 2022-08-13 09:45 | W.PM.OPSUD ---
Surgery/Procedure H&P Update DATE OF PROCEDURE: August 13, 2022 DATE H&P PERFORMED: 07/24/22 H&P UPDATE INFORMATION: I have reviewed H&P completed within last 30 days, I have examined patient prior to procedure and No changes to prior documentation PREOP DIAGNOSIS: DDD L-spine, lumbar radiculopathy PLANNED PROCEDURE: Operation Date: 08/13/22 11:20 Proposed Procedures p Spinal Fusion: L3-S1 Fusion w Cage at L4-5: [id number], M54.16(Not Applicable) - Chevy Cruz DO
[2022-08-13] MEDS: sodium chloride 0.9% 1,000 ML 30 ML IV (09:49)
[2022-08-13] MEDS: fentaNYL 50 mcg/mL INJ 2mL IVP (10:29)
[2022-08-13] MEDS: ceFAZolin 2,000 MG in sodium chloride 0.9% (plus) 50 ML 100 MG IV ×2 (11:07→18:58)
[2022-08-13] MEDS: vancomycin 1,000 MG SDV 1000 MG XX (11:40)
[2022-08-13] MEDS: heparin, porcine 1,000 unit/mL INJ 10 mL 10000 UNIT IRRIGATION (11:40)
[2022-08-13] MEDS: lidocaine-epi 1% 20 mL INJ INJECTION (11:40)
--- NOTE | 2022-08-13 14:22 | XR_ITS ---
WS: [id number] Lumbar spine, C-arm fluoroscopy views, 08/13/2022 Clinical Data: OR PICS Comparison: Lumbar spine, 04/09/2022 Findings: Dr. Cruz performed a posterior lumbosacral fusion. XR/XR lumbar spine 1V [id number] Impression: Posterior lumbosacral fusion.
--- NOTE | 2022-08-13 14:34 | P.OP_ITS ---
Operative Report Date of procedure: August 13, 2022 Pre-op diagnosis: Preop Diagnosis DDD L-spine, lumbar radiculopathy Post-op diagnosis: same Procedure done: 1. L4/5 Interbody fusion with posterolateral fusion 2. Instrumentation L3-S1 3. Cage at L4/5 4. L4/5 Laminectomy with partial facetectomies 5. L5/ S1 Lamincectomywith partial facetetomies 6. use of autograft from same incision 7. allograft 8. Bone marrow aspirate from iliac 9. Use of computer navigation / stereotactic for the spine Surgeon: Chevy Cruz Assembly Supervisor: Rafa Go Assembly Supervisor: The surgical product sales consultant, Rafa Go, PAC was needed for his expertise under the microscope. He was important and necessary throughout the procedure to complete in a safe and timely manner. He assisted with patient positioning prepping and draping tissue retraction suctioning of the operative field protection of the dural sac and tissue closure Estimated blood loss (mL): 600 Procedure: 1. L4/5 Interbody fusion with posterolateral fusion 2. Instrumentation L3-S1 3. Cage at L4/5 4. L4/5 Laminectomy with partial facetectomies 5. L5/ S1 Lamincectomywith partial facetetomies 6. use of autograft from same incision 7. allograft 8. Bone marrow aspirate from iliac 9. Use of computer navigation / stereotactic for the spine Patient is brought to the operative suite. After undergoing anesthesia, the patient had neuro monitoring attached. Patient was then placed in the prone position on the Malcolm table. All areas of impingement were well-padded. Patient was then prepped and draped in the normal sterile fashion. Skin incision was then made over the L3 to S1 space. Subperiosteal dissection was made out to the transverse processes of L3 and L4 and L5 and S1 all bilaterally. Next attention was brought to the [employer] bone marrow aspirate kit was used to aspirate bone marrow aspirate from right iliac crest. This was done by using the sharp probe to open up the bone. Aspiration was performed and then the blunt probe was then used to dissect down to through the bone tunnel. An aspirating well drawn back a millimeter approximately 20 cc of bone marrow aspirate was used. Admixed with the allograft and autograft bone that will be used. She was brought to placing the fiducial for the computer navigation. This was done by placing 2 pins in the right iliac crest. The fusion was attached and then was linked to the exam. Navigation. C-arm was brought in and spun around the patient and then this information from serum was linked in the computer in order to facilitate placing pedicle screws using computer navigation. The 2 pins were placed for the fusion related to her be removed at the end of the case. The technique for placing the pedicle screws was to use a drill followed by the gearshift probe linked to computer navigation. Followed by the ball probe to feel the superior inferior medial lateral sullivan of the pedicles. Then placement of the screws linked to computer navigation. Was done at each pedicle. Screws were placed at L3 bilaterally and L4 bilaterally and L5 bilaterally and S1 bilaterally Patient had a sacralized L5 segment. At this point this was laminectomy was performed at L5 and L5-S1 facetectomies were performed. The nerve roots were traced out the foramen. After the facetectomies were performed. The L5 nerve roots bilaterally were completely freed up. And the S1 nerve was traced around the S1 pedicles bilaterally. Next attention was brought to performing the laminectomy ofL4. This was done us ing the high-speed bur Kerrisons and curettes. Once the lamina was removed and then attention was brought to performing a partial facetectomy on the contralateral side. This was done again using the high-speed bur curettes and Kerrisons. The ligamentum flavum was taken down bilaterally from L4 to L5. Attention was then brought to the facet on the ipsilateral side. The facet was taken down. The L5 nerve was decompressed as it passed around the L5 pedicle. The laminectomy was done for purposes of decompressing the nerve as well as placement of the cage. The L4 nerve was identified as it traversed through the L4/5 foramen. The thecal sac was identified and retracted. The L4/5 disc base was identified. Using a knife the disc base was opened. And then sequential devon were placed. The first shaver was a 6 and the last shaver was a 7. Using a pituitary and down going curette the endplates were scraped and disc material was removed from the space. Once adequate decompression of the disc base was felt to be had. Osteoamp sponge was packed into the anterior aspect of the disc base. Then a size 7 cage from [facility] was placed after packing osteoamp into the cage. While placing the cage the thecal sac and L5 nerve was protected. C arm was used to ensure that the cages placed in the appropriate position. Attention was then brought to attaching the rods to the screws placed in the L 3 bilaterally, L4 bilaterally, L5 bilaterally, and S1 bilaterally. Caps were torqued into position. Locking the construct in place. Wound was copiously irrigated and then attention was brought to decorticating the facets and transverse processes laterally. Bone that was taken down from the lamina was used along with osteoamp fibers and sponges were packed into the lateral gutters along the facet joints. This was done bilaterally. Wound was then closed in a layered fashion starting with the thoracolumbar fascia. 0-vicryl was used the sub cutaneous tissue was closed with 2-0 vicryl and skin with 4-0 monocryl. Glue was then used to seal the skin and a steril dressing was applied. Patient was then placed in the supine position. The endotracheal tube was removed and patient was transferred to the PACU in stable condition.
[2022-08-13] MEDS: HYDROmorphone 1 mg/mL INJ 1 mL 0.5 MG IVP ×2 (14:48→15:07)
[2022-08-13] MEDS: morphine 4 mg/mL SDV 1 mL 2 MG IVP ×2 (16:30→22:21)
--- NOTE | 2022-08-13 16:30 | ANE.PACU2 ---
Inpatient post-anesthesia follow up: Airway intact: Yes Vital signs: Temperature 99.6 F Pulse Rate 74 Respiratory Rate 17 Blood Pressure 153/96 Pulse Oximetry 92 Oxygen Delivery Me thod Nasal Cannula Oxygen Flow Rate 2 Fraction of Inspir ed Oxygen Hydration adequate: Yes Nausea and vomiting: No Pain level: 1 Mental status: Baseline
[2022-08-13] MEDS: oxyCODONE 20 mg ER (12 HR) Tablet PO (17:41)
--- NOTE | 2022-08-13 17:56 | SUR.PHASEI ---
17:55 MEDICATED FOR PAIN. RESTING COMFORTABLY WITH EYES CLOSED. VENTILATING WELL. MODERATE RELIEF OF BACK PAIN. A+O X 3. ROM AND SENSATION IN ALL 4 EXTREMITIES. REPORT CALLED TO MILANA CORTEZ.
[2022-08-13] MEDS: lactated ringers 1,000 ML 90 ML IV (18:58)
[2022-08-13] MEDS: ketorolac 30 mg/mL INJ IVP (19:02)
[2022-08-13] MEDS: oxyCODONE-APAP 10-325 mg Tablet PO ×2 (19:59→23:59)
[2022-08-14] VITALS (15 sets, daily range): BP systolic 136–197; BP diastolic 74–120; PULSE 62–91; RESP 14–18; TEMP 36.6–37.6; O2SAT 90–93
[2022-08-14] MEDS: ceFAZolin 2,000 MG in sodium chloride 0.9% (plus) 50 ML 100 MG IV ×2 (02:06→10:09)
[2022-08-14] MEDS: oxyCODONE-APAP 10-325 mg Tablet PO ×3 (04:07→20:32)
[2022-08-14] MEDS: buPROPion XL (24 HR) 150 mg Tablet PO (05:12)
[2022-08-14] MEDS: lactated ringers 1,000 ML 90 ML IV (07:07)
--- NOTE | 2022-08-14 07:46 | P.PN_ITS ---
Subjective Subjective: POD 1 Patient awake complaining of nausea mild back pain. Denies any shortness of breath, chest pain, headaches. Reports improvement in the feeling in her right leg. Vitals/I&O/Wt Last Vital Signs Temp 99.6 F 08/14/22 05:15 Pulse 74 08/14/22 06:17 Resp 17 08/14/22 05:15 BP 153/96 08/14/22 05:15 Pulse Ox 92 08/14/22 05:15 O2 Del Method 08/13/22 20:00 O2 Flow Rate 2 08/13/22 20:00 08/13/22 08/14/22 08/14/22 22:59 06:59 14:59 Intake Total 540.5 / 1090.5 1050 / 2140.5 Output Total 400 / 1100 720 / 1820 Balance 140.5 / -9.5 330 / 320.5 Weight last 48 hrs Weight 280 lb Physical Exam Narrative: Patient presents alert and oriented x3 with a good general appea martínez normal mood and affect. Normal coordination normal stability. Mild tenderness around the incisional site with the incision appear to be clean and dry. Hemovac drain intact. No signs of erythema or drainage. No signs of infection. Patient denies any fevers or chills. 5/5 motor strength both lower extremities with negative straight leg raise bilaterally. Calves are supple no medial thigh tenderness. Pulses are 2+ at the dorsalis pedis and posterior tibial region. Good capillary refill throughout normal sensation light touch both lower extremities.. Urinary Catheter Management: Thompson: Cath Placed During This Visit: yes Reason for Continuing Indwelling Catheter: Perioperative Use in Selected Surgeries Urinary Catheter Date of Insertion: 08/13/22 Urinary Catheter Time of Insertion: 11:30 Data 08/06/22 08:40 08/06/22 08:40 A&P Assessment and plan (1) Status post lumbar spinal fusion: Physical therapy work for mobilization. We will discontinue Thompson catheter. Encourage incentive spirometry for pulmonary toilet. We will work to control her pain and nausea. We will discontinue Hemovac drain after physical therapy. Work for discharge home tomorrow. High risk for bleeding so we will no anticoagulant but use SCDs for mechanical DVT prophylaxis. Attestations Medical Necessity Statement*: Discharge home tomorrow Coding Level of Care Code Acute Code for Chg Fwd Diagnoses Status post lumbar spinal fusion Z98.1
[2022-08-14] MEDS: docusate sodium 100 mg Capsule PO ×2 (08:04→17:04)
[2022-08-14] MEDS: oxyCODONE 20 mg ER (12 HR) Tablet PO ×2 (08:04→17:04)
[2022-08-14] MEDS: ketorolac 30 mg/mL INJ IVP (08:04)
[2022-08-14] MEDS: escitalopram 10 mg Tablet PO (08:04)
[2022-08-14] MEDS: ondansetron 2 mg/ML SDV 2 mL 4 MG IVP (08:13)
[2022-08-14] MEDS: morphine 4 mg/mL SDV 1 mL 2 MG IVP ×2 (10:03→22:14)
[2022-08-14] MEDS: hydroCHLOROthiazide 25 mg Tablet PO (23:06)
[2022-08-14] MEDS: lisinopril 20 mg Tablet PO (23:06)
[2022-08-15] VITALS (9 sets, daily range): BP systolic 139–154; BP diastolic 70–88; PULSE 65–80; RESP 15–20; TEMP 36.6–36.8; O2SAT 91–98
[2022-08-15] MEDS: oxyCODONE-APAP 10-325 mg Tablet PO ×2 (02:07→06:16)
[2022-08-15] MEDS: morphine 4 mg/mL SDV 1 mL 2 MG IVP (03:43)
[2022-08-15] MEDS: ketorolac 30 mg/mL INJ IVP (03:43)
[2022-08-15] MEDS: buPROPion XL (24 HR) 150 mg Tablet PO (06:16)
--- NOTE | 2022-08-15 06:17 | P.PN_ITS ---
Subjective Subjective: POD 2 Pt feeling better, Ready to go home Vitals/I&O/Wt Last Vital Signs Temp 98.2 F 08/15/22 03:48 Pulse 65 08/15/22 06:13 Resp 15 08/15/22 06:16 BP 150/81 08/15/22 03:48 Pulse Ox 92 08/15/22 03:48 O2 Del Method 08/15/22 03:48 O2 Flow Rate 2 08/15/22 00:00 08/14/22 08/14/22 08/15/22 14:59 22:59 06:59 Intake Total 890 / 890 1491 / 2381 Output Total 170 / 170 110 / 280 Balance 890 / 890 1321 / 2211 -110 / 2101 Weight last 48 hrs Weight 280 lb Physical Exam Narrative: Patient presents alert and oriented x3 with a good general appearance normal mood and affect.? Normal coordination normal stability.? Mild tenderness around the incisional site with the incision appear to be clean and dry.? Hemovac drain intact.? No signs of erythema or drainage.? No signs of infection.? Patient denies any fevers or chills.? 4/5 motor strength Right EHL, 5/5 Left lower extremity with negative straight leg raise bilaterally.? Calves are supple no medial thigh tenderness.? Pulses are 2+ at the dorsalis pedis and posterior tibial region.? Good capillary refill throughout normal sensation light touch both lower extremities. Urinary Catheter Management: Thompson: Cath Placed During This Visit: yes, but has since been removed by the nurse Reason for Continuing Indwelling Catheter: Decision to DC Catheter Urinary Catheter Date of Insertion: 08/13/22 Urinary Catheter Time of Insertion: 11:30 Date Urinary Catheter Removed: 08/14/22 Time Urinary Catheter Discontinued: 08:30 Data 08/06/22 08:40 08/06/22 08:40 A&P Assessment and plan (1) Status post lumbar spinal fusion: Physical therapy to mobilize this morning. We will get her home later this morning. Instructed her to take the incentive spirometry home for pulmonary to ilet. No bending lifting or twisting activities we will see her back in the office in 1 week's time for reevaluation and wound check. Attestations Medical Necessity Statement*: home later this AM Coding Level of Care Code Acute Code for Chg Fwd Diagnoses Status post lumbar spinal fusion Z98.1
--- NOTE | 2022-08-15 06:30 | PC.NURSE ---
Hemovac removed, and silver drsg placed. Pt tolerated procedure well.
[2022-08-15] MEDS: docusate sodium 100 mg Capsule PO (08:26)
[2022-08-15] MEDS: escitalopram 10 mg Tablet PO (08:26)
[2022-08-15] MEDS: lisinopril 20 mg Tablet PO (08:26)
[2022-08-15] MEDS: hydroCHLOROthiazide 25 mg Tablet PO (08:27)
[2022-08-15] MEDS: oxyCODONE 20 mg ER (12 HR) Tablet PO (08:27)
== END 2022-08-15 11:45 | disposition home or self-care (01) | DRG 454 ==
LOC: MEDSURG 17:39
PROVIDERS: Anesthesiology; Admitting Provider Orthopaedic Surgery; PCP Family Medicine; Visit Provider Orthopaedic Surgery
PROC: 0SG007J Fusion of Lumbar Vertebral Joint with Autologous Tissue Substitute, Posterior Approach, Anterior Column, Open Approach (ICD-10-PCS; principal; 2022-08-13 11:00)
DX: M51.16 Intervertebral disc disorders with radiculopathy, lumbar region (principal); Z68.42 Body mass index [BMI] 45.0-49.9, adult; J44.9 Chronic obstructive pulmonary disease, unspecified; G47.33 Obstructive sleep apnea (adult) (pediatric); I10 Essential (primary) hypertension; F41.8 Other specified anxiety disorders; E78.5 Hyperlipidemia, unspecified; Z86.711 Personal history of pulmonary embolism; E66.9 Obesity, unspecified; F17.210 Nicotine dependence, cigarettes, uncomplicated
CPT/HCPCS: 36415; 51702; 72020; 72100; 76000; 80048; 85025; 86850; 86900; 97110; 97116; 97161; C1713; J0690; J1100; J1170; J1200; J1644; J1885; J2250; J2270; J2370; J2405; J2704; J2710; J3010; J3370; J3490; J7030; J7120

== ENCOUNTER 2022-08-19 20:01 | Emergency (ER) | payer MEDICAID, SELFPAY ==
[2022-08-19 20:03] VITALS: BP 144/84; PULSE 86; RESP 16; TEMP 36.7; O2SAT 100
[2022-08-19 23:26] VITALS: BP 146/66; PULSE 64; RESP 20; O2SAT 95
[2022-08-19] MEDS: morphine 4 mg/mL SDV 1 mL IM (23:26)
[2022-08-19] MEDS: doxycycline 100 mg Tablet PO (23:26)
--- NOTE | 2022-08-19 23:46 | ED_ITS ---
HPI - Skin/Abscess/Foreign Bdy General: Chief complaint: Skin/Abscess/Foreign Body Stated complaint: Back Drainging From Back Surgury Time Seen by Provider: 08/19/22 22:03 Source: patient and family Mode of arrival: ambulatory Limitations: no limitations History of Present Illness: Patient presents emergency department today for evaluation treatment concerns from draining for a postoperative wound. Patient was seen several days ago for multiple lumbar vertebrae repair. Chart review shows she has several layers of indwelling sutures with externally applied glue and Steri-Strips. Patient states she has started to have draining over the last 24 hours. She is concerned as it is starting to cause her bandaging to become wet. Incidentally, she is also noted that her bandaging materials have caused her skin to blister and reddened. She is not having any fevers. She states she still has quite a bit of pain and is taking 2 tablets of Percocet on a rotating basis. Review of Systems General: Reports: 10 or more systems reviewed and unremarkable except in HPI and below Skin/Breast: Reports: erythema and skin pain PFSH ED PFSH: Medical History Chronic low back pain with sciatica Chronic narcotic use ~ 2yrs, for back pain Dyslipidemia borderline by report, not on treatment Encounter for long-term opiate analgesic use History of pulmonary embolism post op, had DVT Hypertension Obesity BMI 39 Opioid contract exists Rosacea Surgical History H/O laminectomy History of back surgery (~2017) History of carpal tunnel release left History of D&C History of hysterectomy due to life threatening bleeding while on anticoagulation for PE/DVT History of laparoscopic adjustable gastric banding History of right knee surgery (~2008) patellar realignment History of tonsillectomy Family History Father Cancer pancreatic cancer Other Diabetes Heart disease Hypertension Social History Smoking and tobacco status: current every day smoker cigarettes [ Other cigarette details: .5 pack per day] Alcohol intake: never Lives independently: Yes Household members: spouse Current occupational status: disabled Female Reproductive History: Para: 3 Spontaneous abortions: No Physical Exam Const: COMMON NORMALS: no acute distress, patient oriented x3 and alert HENMT: COMMON NORMALS: normocephalic, atraumatic and hearing grossly normal bilaterally HEAD & SCALP: normocephalic and atraumatic Eye: COMMON NORMALS: Equal, round and reactive pupils present, EOMs intact bilaterally and conjunctivae normal CONJUNCTIVA: Yes conjunctivae normal PUPIL: Yes Equal, round and reactive pupils present Neck/C-Spine: COMMON NORMALS: full ROM and no JVD Lymph: LYMPHATIC: no lymphadenopathy noted Resp: COMMON NORMALS: normal respiratory effort, No retractions and No use of accessory muscles Cardio: COMMON NORMALS: no JVD and regular rate RATE: regular rate Extremity: NARRATIVE EXTREMITY EXAM: Patient is still able to ambulate and [id number] is still slowed and cautious with her movements. Neuro: COMMON NORMALS: patient oriented x3 SENSORIUM/ORIENTATION: Yes alert Psych: COMMON NORMALS: mental status grossly normal, Normal thought process present, cooperative and normal affect THOUGHT PROCESS: Normal thought process present Skin: NARRATIVE SKIN EXAM: Patient has a linear incision affecting the lumbar region down towards her sacrum that is currently covered with bandaging. Bandaging is wet-especially in the inferior portion and loose. With bandaging removed, she has Steri-Strips over this area of wound with many Steri-Strips loose due to moisture. With the Steri-Strips removed, patient still has good wound edge adherence without obvious signs of dehiscence. There is some erythema right along the incision but no significant swelling or erythema around this wound. Pressure on this wound reveals a thin, bloody, and serosanguineous material that is draining. Draining occurs even without pressure but is worsened with certain change in positioning. Course Vital Signs: Vital signs: Vital Signs Temperature 98.0 F 08/19/22 20:03 Pulse Rate 64 08/19/22 23:26 Respiratory Rate 20 H 08/19/22 23:26 Blood Pressure 146/66 08/19/22 23:26 Pulse Oximetry 95 08/19/22 23:26 Oxygen Delivery Me thod 08/19/22 23:26 MDM - Skin/Abscess/Foreign Bdy Medicial Decision Making Patient presents to the ER today for concerns of draining from her postoperative wound. The wound itself does not show any acute concerns of significant cellulitis though the incision itself is slightly red. There is no surrounding erythema or swelling to note. Patient does have a sensitivity to the tape from the bandaging she has been using as there is erythema and blistering in the shape of the bandaging. We swapped her bandaging out for Telfa and paper tape at this time. Given that the incision does go down to the spine, I am prophylactically treating with some antibiotics but, we did obtain a wound culture from the drainage to run in lab for the next couple of days. Patient was given morphine here in the ER as she has missed her dose for pain medication while waiting in the waiting room. She indicated that this would not affect her pain contract. She is to call her doctor first thing in the morning to discuss her ER evaluation and to schedule a follow-up. Differential Diagnosis Likely abscess of skin or subcutaneous tissue, dermatophytosis, allergic reaction to drug, cellulitis, eczema and contact dermatitis Discharge Plan Discharge Patient Disposition: Home Clinical Impression: Draining postoperative wound, Sensitive skin Condition: Stable Prescriptions: New doxycycline hyclate 100 mg tablet 100 mg PO BID 10 Days Qty: 20 0RF No Action escitalopram oxalate [Lexapro] 10 mg tablet 10 mg PO DAILY Qty: 30 2RF Rx Instructions: Take 1/2 tab x 7 days then increase to 1 tab daily. bupropion HCl 150 mg tablet extended release 24 hr 150 mg PO QAM Qty: 30 5RF albuterol sulfate [Ventolin HFA] 90 mcg/actuation HFA aerosol inhaler 2 puff inhalation Q6H PRN (Reason: shortness of breath or wheezing) Qty: 8.5 0RF (DME) Intraoperative Neuromonitoring See Rx Instructions .Route .MEDSUPPLY Qty: 1 0RF Rx Instructions: As directed (DME) DME: Shower Stool See Rx Instructions .Route .MEDSUPPLY Qty: 1 0RF Rx Instructions: As directed Date of Surgery: 08/13/22 oxycodone-acetaminophen 10-325 mg tablet 1 - 2 tab PO Q4H PRN (Reason: pain) 7 Days Qty: 40 0RF oxycodone-acetaminophen [Percocet] 10-325 mg tablet 1 tab PO Q4H PRN (Reason: Pain) lisinopril-hydrochlorothiazide 20-25 mg Tablet 1 tab PO DAILY Discharge Orders: Discharge ED (Routine); Ordered 08/19/22 Ordered By: Kristine Vanegas Referrals: Sb Le, DO [Primary Care Provider] - Discharge Diet: Usual diet Discharge Activity: Limit activity as instructed Activity Restrictions/Additional Instructions: Examination today does not reveal any large area concerning for abscess or cellulitis. You do have draining from your incision and the incision itself is slightly erythematous. I see no areas that are dehisced but, with the draining, we did obtain a wound culture-your doctor can follow-up on this. You are sensitive/allergic to the adhesive of the bandaging they applied. You have areas of erythema underneath this bandaging as well as blistering. We have changed that bandaging out for you tonight. We will provide prophylactic antibiotics until we know what the wound culture shows. Luckily, it appears somewhat serosanguineous which is not due to infection but rather, healing. It is also worth considering that you may have a hypersensitivity to internal sutures. Call your doctor first thing in the morning to discuss follow-up appointment from your evaluation here in the ER. Coding Level of Care Code ED [employer] [place] for Zabrina Burgess
== END 2022-08-19 23:50 | disposition home or self-care (01) ==
PROVIDERS: Emergency Provider Physician Assistant; PCP Family Medicine
DX: Z48.00 Encounter for change or removal of nonsurgical wound dressing (principal); L98.8 Other specified disorders of the skin and subcutaneous tissue; F17.210 Nicotine dependence, cigarettes, uncomplicated; E78.5 Hyperlipidemia, unspecified; I10 Essential (primary) hypertension
CPT/HCPCS: 87070; 96372; 99284; J2270

== ENCOUNTER → 2022-08-21 08:08 | Outpatient (BNVA) | payer MEDICAID, SELFPAY | PROVIDERS: PCP Family Medicine; Visit Provider Orthopaedic Surgery | DX: Z47.89 Encounter for other orthopedic aftercare (principal); Z98.1 Arthrodesis status | CPT/HCPCS: 99024 ==

== ENCOUNTER 2022-08-23 15:53 | Emergency (ER) | payer MEDICAID, SELFPAY ==
[2022-08-23 16:05] VITALS: BP 182/127; PULSE 67; RESP 22; TEMP 36.5; O2SAT 97; BMI 46.5
--- NOTE | 2022-08-23 16:29 | W.ED.NAVMDI ---
HPI - Nausea/Vomiting/Diarrhea General: Chief complaint: Nausea/Vomiting/Diarrhea Stated complaint: N/V FOR 2 DAYS Time Seen by Provider: 08/23/22 16:29 History of Present Illness: Ms. Carlson is a 42-year-old lady with complex past history including chronic back pain and back surgery on 08/13 presenting to the emergency department for nausea, vomiting and withdrawal symptoms. She reports onset of nausea and vomiting 2 days ago with multiple episodes of nonbilious and nonbloody emesis. Since that time she has had multiple episodes per day and has thrown up her medications. She has not had opioids since onset of symptoms and now feels like she is going through withdrawal. She does endorse some lower back pain however no abdominal pain. Intensity symptoms is moderate. Course has persisted. No other specific changes in health, exacerbating, or alleviating factors identified. Onset (ago): day(s) Description of vomiting: watery Associated nausea: Yes Associated abdominal pain: No Severity: moderate Quality: aching Exacerbating factors: none Relieving factors: none Context: recent surgery/procedure Associated symtoms: Reports nausea Review of Systems General: Reports: 10 or more systems reviewed and unremarkable except in HPI and below GI: Reports: nausea PFSH ED PFSH: Medical History Chronic low back pain with sciatica Chronic narcotic use ~ 2yrs, for back pain Dyslipidemia borderline by report, not on treatment Encounter for long-term opiate analgesic use History of pulmonary embolism post op, had DVT Hypertension Obesity BMI 39 Opioid contract exists Rosacea Surgical History H/O laminectomy History of back surgery (~2018) History of carpal tunnel release left History of D&C History of hysterectomy due to life threatening bleeding while on anticoagulation for PE/DVT History of laparoscopic adjustable gastric banding History of right knee surgery (~2008) patellar realignment History of tonsillectomy Family History Father Cancer pancreatic cancer Other Diabetes Heart disease Hypertension Social History Smoking and tobacco status: current every day smoker cigarettes [ Other cigarette details: .5 pack per day] Alcohol intake: never Lives independently: Yes Household members: spouse Current occupational status: disabled Female Reproductive History: Para: 3 Spontaneous abortions: No Physical Exam Const: COMMON NORMALS: alert GENERAL APPEARANCE: cooperative and well developed HENMT: COMMON NORMALS: normocephalic and atraumatic HEAD & SCALP: normocephalic and atraumatic Eye: COMMON NORMALS: conjunctivae normal CONJUNCTIVA: Yes conjunctivae normal SCLERA: sclerae normal Neck/C-Spine: COMMON NORMALS: supple GENERAL: Yes trachea midline Resp: COMMON NORMALS: clear to auscultation bilaterally EFFORT & INSPECTION: Yes able to speak in complete sentences AUSCULTATION: clear to auscultation bilaterally Cardio: COMMON NORMALS: regular rate and regular rhythm RATE: regular rate RHYTHM: regular rhythm GI: COMMON NORMALS: Soft to palpation PALPATION: Yes Soft to palpation and No Tenderness to palpation present (GI) Back/Pelvis: OTHER: Surgical dressing in place, no evidence of bleeding or cellulitis, expected degree of tenderness present Extremity: GENERAL: Yes normal exam except as noted and No edema Neuro: COMMON NORMALS: moves all extremities SENSORIUM/ORIENTATION: Yes alert and No Orientation impaired Psych: COMMON NORMALS: mental status grossly normal and Normal thought process present THOUGHT PROCESS: Normal thought process present Course Vital Signs: Vital signs: Vital Signs Temperature 97.7 F 08/23/22 16:05 Pulse Rate 89 08/23/22 19:38 Respiratory Rate 14 08/23/22 19:38 Blood Pressure 196/116 08/23/22 19:38 Pulse Oximetry 98 08/23/22 19:38 Oxygen Delivery Me thod 08/23/22 19:03 MDM - Nausea/Vomiting/Diarrhea Medical Decision Making 42-year-old lady presenting with nausea and vomiting. Patient has recent surgery. Exam as above, patient is nontoxic and there is no evidence of surgical incision infection or acute surgical abdomen. Labs with mild leukocytosis which may be reactive, normal hemoglobin, evidence of mild dehydration on metabolic panel. Squamous epithelial contamination on urinalysis likely explains the bacteria especially given negative nitrate and leukocyte esterase. CT abdomen pelvis demonstrates no acute pathology. Incidental findings discussed. Patient markedly improved with IV fluids, antiemetic, analgesia. She is able to tolerate p.o. intake. Most likely etiology of patient's symptoms is nausea and vomiting with diarrhea in the postoperative state. The results of ED evaluation were discussed with the patient including prescriptions and/or symptomatic cares (if applicable) including appropriate and responsible use, followup plan, and return precautions. The patient verbalized understanding and felt safe for discharge. Medical Records I reviewed the patient's medical records. Lab Data I reviewed the patient's lab results. 08/23/22 16:55 08/23/22 16:55 Radiology Impressions Abdomen/Pelvis CT 08/23/22 17:[address]: [address] evidence of acute intra-abdominal or pelvic pathology. 2. Additional findings, as above. Laboratory Results WBC 15.0 10^3/uL (4.0-10.0) H 08/23/22 16:55 RBC 3.95 10^6/uL (4.1-5.3) L 08/23/22 16:55 Hgb 11.8 g/dL (11.5-15.3) 08/23/22 16:55 Hct 36.5 % (37.0-47.0) L 08/23/22 16:55 MCV 92.4 fl (81-99) 08/23/22 16:55 MCH 29.9 pg (28.0-34.0) 08/23/22 16:55 MCHC 32.3 g/dL (30.0-36.0) 08/23/22 16:55 RDW 14.0 % (12.1-15.1) 08/23/22 16:55 Plt Count 366 10^3/cmm (130-400) 08/23/22 16:55 MPV 9.6 fL (7.4-10.4) 08/23/22 16:55 Neut % (Auto) 82.8 % 08/23/22 16:55 Lymph % (Auto) 10.9 % 08/23/22 16:55 [place] % (Auto) 4.1 % 08/23/22 16:55 Eos % (Auto) 0.1 % 08/23/22 16:55 Baso % (Auto) 0.8 % 08/23/22 16:55 Neut # (Auto) 12.45 10^3/uL (1.8-7.7) H 08/23/22 16:55 Lymph # (Auto) 1.6 10^3/uL (0.8-4.8) 08/23/22 16:55 [place] # (Auto) 0.6 10^3/uL (0.2-0.9) 08/23/22 16:55 Eos # (Auto) 0.0 10^3/uL (0.0-0.8) 08/23/22 16:55 Baso # (Auto) 0.1 10^3/uL (0.0-0.1) 08/23/22 16:55 Nucleated RBC % (auto) 0 % 08/23/22 16:55 Nucleated RBCs # 0.0 /100WBC 08/23/22 16:55 Sodium 145 mmol/L (136-145) 08/23/22 16:55 Potassium 3.8 mmol/L (3.5-5.1) 08/23/22 16:55 Chloride 106 mmol/L (98-107) 08/23/22 16:55 Carbon Dioxide 23 mmol/L (22-29) 08/23/22 16:55 Anion Gap 19.8 (5-19) H 08/23/22 16:55 BUN 13 mg/dL (6-20) 08/23/22 16:55 Creatinine 0.8 mg/dL (0.5-0.9) 08/23/22 16:55 GFR Calculation 77.9 mL/min (90-130) L 08/23/22 16:55 Glucose 127 mg/dL (65-115) H 08/23/22 16:55 Calculated Osmolality 302 mOsm/kg (285-295) H 08/23/22 16:55 Calcium 9.7 mg/dL (8.5-10.5) 08/23/22 16:55 Total Bilirubin 0.3 mg/dL (0.15-1.2) 08/23/22 16:55 AST 17 U/L (0-32) 08/23/22 16:55 ALT 17 U/L (0-33) 08/23/22 16:55 Alkaline Phosphatase 86 U/L (35-105) 08/23/22 16:55 Total Protein 7.6 g/dL (6.6-8.7) 08/23/22 16:55 Albumin 4.3 g/dL (3.5-5.2) 08/23/22 16:55 Globulin 3.3 g/dL (1.3-4.6) 08/23/22 16:55 Urine Color Yellow (Yellow) 08/23/22 17:12 Urine Appearance Hazy (CLEAR) A 08/23/22 17:12 Urine pH 9 (5-7) H 08/23/22 17:12 Ur Specific [place] 1.020 (1.005-1.030) 08/23/22 17:12 Urine Protein Neg (Negative) 08/23/22 17:12 Urine Glucose (UA) Norm (Normal) 08/23/22 17:12 Urine Ketones 1+ (Negative) H 08/23/22 17:12 Urine Blood Neg (Negative) 08/23/22 17:12 Urine Nitrate Negative (Negative) 08/23/22 17:12 Urine Bilirubin Neg (Negative) 08/23/22 17:12 Prot Sulfosalicylic Acd Negative (Negative) 08/23/22 17:12 Urine Urobilinogen Neg mg/dL (Negative) 08/23/22 17:12 Ur Leukocyte Esterase Negative (Negative) 08/23/22 17:12 Urine RBC None /hpf (0-2) 08/23/22 17:12 Urine WBC 0-4 /hpf (0-5) H 08/23/22 17:12 Ur Squamous Epith Cells 5-10 /hpf (0-5) H 08/23/22 17:12 Calcium Oxalate Crystal 0-4 /hpf H 08/23/22 17:12 Amorphous Sediment Not Reportable 08/23/22 17:12 Urine Bacteria 4+ /hpf (NONE) H 08/23/22 17:12 Discharge Plan Discharge Patient Disposition: Home Clinical Impression: Nausea and vomiting, Post-operative state Condition: Stable Prescriptions: New ondansetron 4 mg tablet,disintegrating 4 mg PO Q8H PRN (Reason: nausea and vomiting) Qty: 15 0RF No Action escitalopram oxalate [Lexapro] 10 mg tablet 10 mg PO DAILY Qty: 30 2RF bupropion HCl 150 mg tablet extended release 24 hr 150 mg PO QAM Qty: 30 5RF albuterol sulfate [Ventolin HFA] 90 mcg/actuation HFA aerosol inhaler 2 puff inhalation Q6H PRN (Reason: shortness of breath or wheezing) Qty: 8.5 0RF (DME) Intraoperative Neuromonitoring See Rx Instructions .Route .MEDSUPPLY Qty: 1 0RF Rx Instructions: As directed (DME) DME: Shower Stool See Rx Instructions .Route .MEDSUPPLY Qty: 1 0RF Rx Instructions: As directed Date of Surgery: 08/13/22 oxycodone-acetaminophen [Percocet] 10-325 mg tablet 1 tab PO Q4H PRN (Reason: Pain) lisinopril-hydrochlorothiazide 20-25 mg Tablet 1 tab PO DAILY Discharge Orders: Discharge ED (Routine); Ordered 08/23/22 Ordered By: Yony Leiva Referrals: Sb Le DO [Primary Care Provider] - Discharge Diet: Usual diet Discharge Activity: Limit activity as instructed Patient Instructions: Acute Nausea and Vomiting (ED), Opioid Safety Activity Restrictions/Additional Instructions: Thank you for visiting the emergency department. You were seen and evaluated for nausea and vomiting. The exact cause of your symptoms is unclear though may be related to postoperative state. Please follow-up with your primary care provider and operating surgeon. Please follow-up previous instructions regarding activity. I will prescribe dissolvable antinausea medication which should help with your symptoms. Return to the emergency department for worsening or uncontrolled symptoms or anything else that you are concerned about and feel needs emergency department evaluation. Coding Level of Care Code ED [employer] for Zabrina Burgess
[2022-08-23 17:19] VITALS: RESP 16
[2022-08-23 17:19] LABS: Basophils # 0.1 10^3/uL (0.0-0.1); Basophils % 0.8 %; Eosinophils % 0.1 %; Hematocrit 36.5 % (37.0-47.0); Hemoglobin 11.8 g/dL (11.5-15.3); Lymphocytes # 1.6 10^3/uL (0.8-4.8); Lymphocytes % 10.9 %; Mean Corpuscular HGB Conc 32.3 g/dL (30.0-36.0); Mean Corpuscular Hemoglobin 29.9 pg (28.0-34.0); Mean Corpuscular Volume 92.4 fl (81-99); Mean Platelet Volume 9.6 fL (7.4-10.4); Monocytes # 0.6 10^3/uL (0.2-0.9); Monocytes % 4.1 %; Neutrophils # 12.45 10^3/uL (1.8-7.7); Neutrophils % 82.8 %; Nucleated Red Blood Cells % 0 %; Platelet Count 366 10^3/cmm (130-400); Red Blood Count 3.95 10^6/uL (4.1-5.3)
[2022-08-23] MEDS: morphine 4 mg/mL SDV 1 mL IVP (17:19)
[2022-08-23] MEDS: ondansetron 2 mg/ML SDV 2 mL 4 MG IVP ×2 (17:21→19:00)
[2022-08-23] MEDS: sodium chloride 0.9% 1,000 ML 999 ML IV (17:21)
[2022-08-23 17:41] LABS: Alanine Aminotransferase 17 U/L (0-33); Albumin Level 4.3 g/dL (3.5-5.2); Alkaline Phosphatase 86 U/L (35-105); Anion Gap 19.8 (5-19); Aspartate Amino Transferase 17 U/L (0-32); Blood Urea Nitrogen 13 mg/dL (6-20); Calcium 9.7 mg/dL (8.5-10.5); Carbon Dioxide 23 mmol/L (22-29); Chloride 106 mmol/L (98-107); Globulin 3.3 g/dL (1.3-4.6); Glomerular Filtration Rate 77.9 mL/min (90-130); Glucose 127 mg/dL (65-115); Osmolality Calculated 302 mOsm/kg (285-295); Potassium 3.8 mmol/L (3.5-5.1); Sodium 145 mmol/L (136-145); Total Bilirubin 0.3 mg/dL (0.15-1.2); Total Protein 7.6 g/dL (6.6-8.7)
[2022-08-23] MEDS: haloperidol inj 5 mg/mL INJ 1 mL 1 MG IVP (17:49)
--- NOTE | 2022-08-23 17:52 | CTR_ITS ---
PROCEDURE INFORMATION: Exam: CT Abdomen And Pelvis With Contrast Exam date and time: 08/23/2022 6:04 PM Age: 42 years old Clinical indication: Nausea and vomiting; Prior surgery; Surgery date: <1 month; Surgery type: Laminectomy; Patient HX: HX katia, hysterectomy; Additional info: N/v, pain TECHNIQUE: Imaging protocol: Computed tomography of the abdomen and pelvis with contrast. Axial, coronal and sagittal reformatted images were created and reviewed. Radiation optimization: All CT scans at this facility use at least one of these dose optimization techniques: automated exposure control; mA and/or kV adjustment per patient size (includes targeted exams where dose is matched to clinical indication); or iterative reconstruction. Contrast material: OMNI 350; Contrast volume: 100 ml; Contrast route: INTRAVENOUS (IV); REPORTING DATA: Count of CT and Cardiac NM exams in prior 12 months: This patient has received 2 known CTs and 0 known cardiac nuclear medicine studies in the 12 months prior to the current study. COMPARISON: CR XR lumbar spine 2-3V* [id number] 01/22/2022 4:31 PM RADIATION DOSE METRICS: Total DLP (mGy-cm): 1189.66 FINDINGS: Diaphragm: Small hiatal hernia. Postoperative changes at the esophagogastric junction. Elevated left hemidiaphragm. Liver: Mild hepatomegaly. Gallbladder and bile ducts: Status post cholecystectomy. No biliary ductal dilatation. Pancreas: Unremarkable. Spleen: Unremarkable. Adrenal glands: Normal. No mass. Kidneys and ureters: No mass. No radiodense calculi. No hydronephrosis. Stomach and bowel: No bowel wall thickening. No obstruction. No pneumatosis. Appendix: Status post appendectomy. Intraperitoneal space: No free fluid. No organized fluid collection. No free air. Vasculature: Unremarkable. No aneurysm. Lymph nodes: No pathologically enlarged lymph nodes. Urinary bladder: Unremarkable as visualized. Reproductive: Status post hysterectomy. Bones/joints: Postoperative changes associated with recent L3-S1 posterior fusion. Mild degenerative changes. Soft tissues: Fat containing left lateral abdominal wall hernia. Small, fat containing umbilical hernia. Small amount of loculated midline subcutaneous fluid, likely secondary to postoperative seroma. CT/CT abdomen pelvis w con* [id number]: 1. No CT evidence of acute intra-abdominal or pelvic pathology. 2. Additional findings, as above.
--- NOTE | 2022-08-23 17:55 | PC.NURSE ---
SILVERLON DRESSING REPLACED. INCISIONS INTACT AND WELL APPROXIMATED. NO SIGNS OF INFECTION.
[2022-08-23 17:56] VITALS: BP 173/99; PULSE 71; RESP 20; O2SAT 98
[2022-08-23] MEDS: iohexol 350 mg/mL 500 mL Btl (per mL) IV (18:12)
[2022-08-23 18:47] LABS: Add Urine Microscopic? YES; Bacteria Urine 4+ /hpf; Bilirubin Urine Neg (Negative); Blood Urine Neg (Negative); Glucose Urine UA Norm (Normal); Ketones Urine 1+ (Negative); Leukocyte Esterase Urine Negative (Negative); Nitrate Urine Negative (Negative); Protein Urine Neg (Negative); Sulfosalicylic Acid Urine Negative (Negative); Urine Appearance Hazy (CLEAR); Urine Color Yellow (Yellow); Urobilinogen Urine Neg (Negative); WBC Urine 0-4 /hpf (0-5); pH Urine 9 (5-7)
[2022-08-23 18:48] LABS: Add Urine Culture? Yes; Calcium Oxalate Crystals Urine 0-4 /hpf
[2022-08-23] MEDS: HYDROmorphone 1 mg/mL INJ 1 mL 0.5 MG IVP (19:00)
[2022-08-23 19:03] VITALS: BP 186/110; PULSE 78; RESP 16; O2SAT 100
[2022-08-23 19:38] VITALS: BP 196/116; PULSE 89; RESP 14; O2SAT 98
== END 2022-08-23 19:42 | disposition home or self-care (01) ==
PROVIDERS: Emergency Provider Emergency Medicine; PCP Family Medicine
DX: R11.2 Nausea with vomiting, unspecified (principal); Z98.890 Other specified postprocedural states; E78.5 Hyperlipidemia, unspecified; I10 Essential (primary) hypertension; F17.210 Nicotine dependence, cigarettes, uncomplicated
CPT/HCPCS: 74177; 80053; 81001; 85025; 87077; 87086; 87186; 96361; 96374; 96375; 96376; 99285; J1170; J1630; J2270; J2405; J7030; Q9967

== ENCOUNTER → 2022-08-28 12:50 | Outpatient (BNVA) | payer MEDICAID, SELFPAY | PROVIDERS: PCP Family Medicine; Visit Provider Orthopaedic Surgery | DX: Z47.89 Encounter for other orthopedic aftercare (principal); Z98.1 Arthrodesis status | CPT/HCPCS: 99024 ==

== ENCOUNTER 2022-08-29 18:41 | Emergency (ER) | payer MEDICAID, SELFPAY ==
[2022-08-29 19:03] VITALS: BP 146/103; PULSE 104; RESP 20; TEMP 37.7; O2SAT 96
[2022-08-29 19:28] VITALS: BP 145/106; PULSE 97; RESP 18; O2SAT 97
--- NOTE | 2022-08-29 19:43 | W.ED.BACK ---
HPI - Back Pain/Injury General: Chief Complaint: Back Pain/Injury Stated Complaint: Back Red\Fever Time Seen by Provider: 08/29/22 19:28 History of Present Illness: Patient presents to the ER with complaints of postsurgical site to the lumbar spine region swollen red and more painful than normal. Patient had lumbar spine fusion with rods approximately 2 weeks ago. Patient has seen her surgeon at her 1 week follow-up and her 2-week follow-up which was yesterday. The surgeon said everything looked good the redness and the swelling were not there at that time. Patient said this started this morning patient also says she had a fever of up to 104 degrees orally at home. Patient just came in to have it looked at and assess for infection. MD elicited complaint: other (Low back pain and possible postsurgical infection) Pertinent past history: back surgery Onset (ago): hour(s) (Today) Timing: constant Severity: moderate Similar Symptoms Previously: No Quality: aching Location: lumbar spine Associated symptoms: Reports chills and fever(s); Deny abdominal pain, nausea or vomiting Work related injury: No Review of Systems General: Reports: 10 or more systems reviewed and unremarkable except in HPI and below Const: Reports: fever(s), chills and body aches Eyes: Denies: change in vision ENMT: Denies: throat pain or enlarged tonsils Card: Denies: chest pain, palpitations or irregular heart rhythm Resp: Denies: dyspnea, productive cough or non-productive cough GI: Denies: abdominal pain, nausea, vomiting or diarrhea : Denies: flank pain Musc: Reports: back pain; Denies: neck pain Skin/Breast: Reports: erythema; Denies: rash or pruritus Neuro: Denies: headache(s), numbness in extremities or weakness in extremities Psych: Denies: anxiety or depression PFSH ED PFSH: Medical History Chronic low back pain with sciatica Chronic narcotic use ~ 2yrs, for back pain Dyslipidemia borderline by report, not on treatment Encounter for long-term opiate analgesic use History of pulmonary embolism post op, had DVT Hypertension Obesity BMI 39 Opioid contract exists Rosacea Surgical History H/O laminectomy History of back surgery (~2018) History of carpal tunnel release left History of D&C History of hysterectomy due to life threatening bleeding while on anticoagulation for PE/DVT History of laparoscopic adjustable gastric banding History of right knee surgery (~2008) patellar realignment History of tonsillectomy Family History Father Cancer pancreatic cancer Other Diabetes Heart disease Hypertension Social History Smoking and tobacco status: current every day smoker cigarettes [ Other cigarette details: .5 pack per day] Alcohol intake: never Lives independently: Yes Household members: spouse Current occupational status: disabled Female Reproductive History: Para: 3 Spontaneous abortions: No Physical Exam Const: COMMON NORMALS: no acute distress, patient oriented x3, no limitations, healthy appearing, alert and well nourished HENMT: COMMON NORMALS: normocephalic, atraumatic, hearing grossly normal bilaterally, external ears normal, Normal external nose present and moist oral mucous membranes HEAD & SCALP: normocephalic and atraumatic NOSE: Normal external nose present EXTERNAL EAR: Yes external ears normal Neck/C-Spine: COMMON NORMALS: full ROM, no lymphadenopathy, supple, no meningeal signs, no JVD and Thyroid normal THYROID: Thyroid normal Chest: COMMONS NORMALS: normal inspection of the chest and normal palpation of entire chest wall Resp: COMMON NORMALS: normal respiratory effort, No retractions, No use of accessory muscles and clear to auscultation bilaterally AUSCULTATION: clear to auscultation bilaterally Cardio: COMMON NORMALS: no JVD, regular rate, regular rhythm, S1 normal heart sound present and S2 normal heart sound present RATE: regular rate RHYTHM: regular rhythm HEART SOUNDS: S1 normal heart sound present and S2 normal heart sound present GI: COMMON NORMALS: Normal to inspection, nondistended, normoactive bowel sounds present, Soft to palpation, non-tender, No hepatosplenomegaly present and no masses PALPATION: Yes Soft to palpation and Yes No hepatosplenomegaly present Back/Pelvis: OTHER: There is a large postsurgical incision over the lumbar spine with minimal erythema no drainage and Steri-Strips still intact. Looks like a well-healing incision with no obvious signs of external infection. Neuro: COMMON NORMALS: patient oriented x3, CN's II-XII intact bilaterally, moves all extremities, no focal motor deficits and no sensory deficits noted SENSORIUM/ORIENTATION: Yes alert MENINGEAL SIGNS: Yes no meningeal signs Psych: COMMON NORMALS: mental status grossly normal, Normal thought process present, cooperative, normal affect and speech normal SPEECH: Yes normal speech THOUGHT PROCESS: Normal thought process present Course Vital Signs: Vital signs: Vital Signs Temperature 100 F H 08/29/22 19:03 Pulse Rate 88 08/29/22 19:46 Respiratory Rate 16 08/29/22 19:46 Blood Pressure 138/92 08/29/22 19:46 Pulse Oximetry 96 08/29/22 19:46 Oxygen Delivery Me thod 08/29/22 19:03 MDM - Back Pain/Injury Medical Decision Making Patient presents to the ER with complaints of redness and swelling over her incision site where she had a lumbar fusion done approximately 2 weeks ago. Patient said this area looked good yesterday when she had her 2-week follow-up. However today it started getting more red and swollen and painful. Patient comes in for further evaluation. Upon physical exam which did not show a whole lot of erythema or swelling of the area with no drainage or fluctuance. Lab work was obtained which did reveal a white count of 20.3 thousand which was higher than her last lab work which showed a white count of 15,002 sets of blood cultures were obtained 1 g of Rocephin IV was given patient will be discharged home on Keflex and will await the results of the blood cultures. Patient should follow-up with her primary care physician in the next week. Differential Diagnosis Unlikely lumbar radiculopathy, sciatica or strain of lumbar region Medical Records I reviewed the patient's medical records. Labs I reviewed the patient's lab results. 08/29/22 20:05 08/29/22 20:05 Laboratory Results WBC 20.3 10^3/uL (4.0-10.0) H 08/29/22 20:05 RBC 4.11 10^6/uL (4.1-5.3) 08/29/22 20:05 Hgb 12.0 g/dL (11.5-15.3) 08/29/22 20:05 Hct 38.4 % (37.0-47.0) 08/29/22 20:05 MCV 93.4 fl (81-99) 08/29/22 20:05 MCH 29.2 pg (28.0-34.0) 08/29/22 20:05 MCHC 31.3 g/dL (30.0-36.0) 08/29/22 20:05 RDW 13.9 % (12.1-15.1) 08/29/22 20:05 Plt Count 296 10^3/cmm (130-400) 08/29/22 20:05 MPV 9.8 fL (7.4-10.4) 08/29/22 20:05 Neut % (Auto) 87.6 % 08/29/22 20:05 Lymph % (Auto) 5.3 % 08/29/22 20:05 [place] % (Auto) 5.4 % 08/29/22 20:05 Eos % (Auto) 0.5 % 08/29/22 20:05 Baso % (Auto) 0.7 % 08/29/22 20:05 Neut # (Auto) 17.74 10^3/uL (1.8-7.7) H 08/29/22 20:05 Lymph # (Auto) 1.1 10^3/uL (0.8-4.8) 08/29/22 20:05 [place] # (Auto) 1.1 10^3/uL (0.2-0.9) H 08/29/22 20:05 Eos # (Auto) 0.1 10^3/uL (0.0-0.8) 08/29/22 20:05 Baso # (Auto) 0.1 10^3/uL (0.0-0.1) 08/29/22 20:05 Nucleated RBC % (auto) 0 % 08/29/22 20:05 Nucleated RBCs # 0.0 /100WBC 08/29/22 20:05 Sodium 137 mmol/L (136-145) 08/29/22 20:05 Potassium 3.9 mmol/L (3.5-5.1) 08/29/22 20:05 Chloride 104 mmol/L (98-107) 08/29/22 20:05 Carbon Dioxide 21 mmol/L (22-29) L 08/29/22 20:05 Anion Gap 15.9 (5-19) 08/29/22 20:05 BUN 12 mg/dL (6-20) 08/29/22 20:05 Creatinine 0.8 mg/dL (0.5-0.9) 08/29/22 20:05 GFR Calculation 77.9 mL/min (90-130) L 08/29/22 20:05 Glucose 104 mg/dL (65-115) 08/29/22 20:05 Calculated Osmolality 284 mOsm/kg (285-295) L 08/29/22 20:05 Calcium 8.7 mg/dL (8.5-10.5) 08/29/22 20:05 Total Bilirubin 0.5 mg/dL (0.15-1.2) 08/29/22 20:05 AST 16 U/L (0-32) 08/29/22 20:05 ALT 18 U/L (0-33) 08/29/22 20:05 Alkaline Phosphatase 119 U/L (35-105) H 08/29/22 20:05 Total Protein 6.9 g/dL (6.6-8.7) 08/29/22 20:05 Albumin 4.0 g/dL (3.5-5.2) 08/29/22 20:05 Globulin 2.9 g/dL (1.3-4.6) 08/29/22 20:05 Discharge Plan Discharge Patient Disposition: Home Clinical Impression: Post-operative state, Leukocytosis, Post-operative infection Condition: Stable Prescriptions: New cephalexin 500 mg capsule 500 mg PO Q6H 7 Days Qty: 28 0RF No Action escitalopram oxalate [Lexapro] 10 mg tablet 10 mg PO DAILY Qty: 30 2RF bupropion HCl 150 mg tablet extended release 24 hr 150 mg PO QAM Qty: 30 5RF albuterol sulfate [Ventolin HFA] 90 mcg/actuation HFA aerosol inhaler 2 puff inhalation Q6H PRN (Reason: shortness of breath or wheezing) Qty: 8.5 0RF (DME) Intraoperative Neuromonitoring See Rx Instructions .Route .MEDSUPPLY Qty: 1 0RF Rx Instructions: As directed (DME) DME: Shower Stool See Rx Instructions .Route .MEDSUPPLY Qty: 1 0RF Rx Instructions: As directed Date of Surgery: 08/13/22 oxycodone-acetaminophen [Percocet] 10-325 mg tablet 1 tab PO Q4H PRN (Reason: Pain) lisinopril-hydrochlorothiazide 20-25 mg Tablet 1 tab PO DAILY ondansetron 4 mg tablet,disintegrating 4 mg PO Q8H PRN (Reason: nausea and vomiting) Qty: 15 0RF Discharge Orders: Discharge ED (Routine); Ordered 08/29/22 Ordered By: Mata Hicks Referrals: Chevy Cruz DO [Primary Care Provider] - 1 week Patient Instructions: Leukocytosis (ED), Surgical Site Infections (ED) Coding Level of Care Code ED [place] Specialist for Zabrina Burgess
[2022-08-29 19:46] VITALS: BP 138/92; PULSE 88; RESP 16; O2SAT 96
[2022-08-29 20:19] LABS: Basophils # 0.1 10^3/uL (0.0-0.1); Basophils % 0.7 %; Eosinophils # 0.1 10^3/uL (0.0-0.8); Eosinophils % 0.5 %; Hematocrit 38.4 % (37.0-47.0); Lymphocytes # 1.1 10^3/uL (0.8-4.8); Lymphocytes % 5.3 %; Mean Corpuscular HGB Conc 31.3 g/dL (30.0-36.0); Mean Corpuscular Hemoglobin 29.2 pg (28.0-34.0); Mean Corpuscular Volume 93.4 fl (81-99); Mean Platelet Volume 9.8 fL (7.4-10.4); Monocytes # 1.1 10^3/uL (0.2-0.9); Monocytes % 5.4 %; Neutrophils # 17.74 10^3/uL (1.8-7.7); Neutrophils % 87.6 %; Nucleated Red Blood Cells % 0 %; Platelet Count 296 10^3/cmm (130-400); Red Blood Count 4.11 10^6/uL (4.1-5.3); Red Cell Distribution Width 13.9 % (12.1-15.1); White Blood Count 20.3 10^3/uL (4.0-10.0)
[2022-08-29 20:34] LABS: Alanine Aminotransferase 18 U/L (0-33); Alkaline Phosphatase 119 U/L (35-105); Anion Gap 15.9 (5-19); Aspartate Amino Transferase 16 U/L (0-32); Blood Urea Nitrogen 12 mg/dL (6-20); Calcium 8.7 mg/dL (8.5-10.5); Carbon Dioxide 21 mmol/L (22-29); Chloride 104 mmol/L (98-107); Globulin 2.9 g/dL (1.3-4.6); Glomerular Filtration Rate 77.9 mL/min (90-130); Glucose 104 mg/dL (65-115); Osmolality Calculated 284 mOsm/kg (285-295); Potassium 3.9 mmol/L (3.5-5.1); Sodium 137 mmol/L (136-145); Total Bilirubin 0.5 mg/dL (0.15-1.2); Total Protein 6.9 g/dL (6.6-8.7)
[2022-08-29] MEDS: cefTRIAXone 1,000 MG in sodium chloride 0.9% (plus) 50 ML 100 MG IV (21:28)
[2022-08-29 21:30] VITALS: BP 154/82; PULSE 84; RESP 16; O2SAT 97
[2022-08-29 21:51] VITALS: BP 163/84; PULSE 93; RESP 16; O2SAT 96
== END 2022-08-29 21:53 | disposition home or self-care (01) ==
PROVIDERS: Emergency Provider Emergency Medicine; PCP Orthopaedic Surgery
DX: T81.49XA Infection following a procedure, other surgical site, initial encounter (principal); B99.9 Unspecified infectious disease; D72.829 Elevated white blood cell count, unspecified; F17.210 Nicotine dependence, cigarettes, uncomplicated; E78.5 Hyperlipidemia, unspecified; I10 Essential (primary) hypertension; Y83.8 Other surgical procedures as the cause of abnormal reaction of the patient, or of later complication, without mention of misadventure at the time of the procedure
CPT/HCPCS: 80053; 85025; 87040; 87205; 96374; 99284; J0696

== ENCOUNTER → 2022-09-11 09:04 | Outpatient (BNVA) | payer MEDICAID, SELFPAY | PROVIDERS: PCP Orthopaedic Surgery; Visit Provider Orthopaedic Surgery | DX: Z47.89 Encounter for other orthopedic aftercare (principal); Z98.1 Arthrodesis status | CPT/HCPCS: 72100; 99024 ==

== ENCOUNTER 2022-09-15 19:50 | Emergency (ER) | payer MEDICAID, SELFPAY ==
[2022-09-15 19:55] VITALS: BP 181/90; PULSE 75; RESP 18; TEMP 36.9; O2SAT 99
--- NOTE | 2022-09-15 20:59 | NUR.SHIFT ---
ATTEMPTED TO ASSESS PT PT IS NOT IN ROOM.
[2022-09-15 21:14] VITALS: RESP 16
[2022-09-15] MEDS: oxyCODONE-APAP 10-325 mg Tablet 1 TAB PO (21:14)
[2022-09-15] MEDS: ketorolac 60 mg/2 mL INJ IM (21:15)
--- NOTE | 2022-09-15 21:32 | PC.NURSE ---
REPORT GIVEN TO GLADYS Castillo RN ASSUMED CARE.
--- NOTE | 2022-09-15 21:52 | W.ED.SKABFB ---
HPI - Skin/Abscess/Foreign Bdy General: Chief complaint: Skin/Abscess/Foreign Body Stated complaint: Lower Back Incision Possible Infected Time Seen by Provider: 09/15/22 20:09 Source: patient Mode of arrival: ambulatory Limitations: no limitations History of Present Illness: Patient presents to the emergency department today for evaluation treatment of increasing pain in her lower back and concerns for infection. Patient is status post lumbar surgery with indwelling hardware approximately 4 to 5 weeks ago. Patient's chart review shows she has been seen 6 times either acutely or in the surgeon's office since her procedure. Each time she is concerned of infection in her wound. I personally saw and evaluated this patient just a few days after her procedure for concerns of infection. Patient was found to have a significant reaction to the bandaging adhesive and there was noticed to be serosanguineous discharge. Swab of the draining fluid was obtained for wound culture and had no growth. Last time the patient was in the emergency department they did provide her antibiotics and she states she took it. She had an appointment with her surgeon just 5 days ago and indicated everything looked good. Patient reports that she has had constant thin, yellow drainage from her wound since her surgery. However, since Saturday she has not had any drainage and feels the area is swollen and she has had significant increase in her pain. Review of Systems General: Reports: 10 or more systems reviewed and unremarkable except in HPI and below PFSH ED PFSH: Medical History Chronic low back pain with sciatica Chronic narcotic use ~ 2yrs, for back pain Dyslipidemia borderline by report, not on treatment Encounter for long-term opiate analgesic use History of pulmonary embolism post op, had DVT Hypertension Obesity BMI 39 Opioid contract exists Rosacea Surgical History H/O laminectomy History of back surgery (~2018) History of carpal tunnel release left History of D&C History of hysterectomy due to life threatening bleeding while on anticoagulation for PE/DVT History of laparoscopic adjustable gastric banding History of right knee surgery (~2008) patellar realignment History of tonsillectomy Family History Father Cancer pancreatic cancer Other Diabetes Heart disease Hypertension Social History Smoking and tobacco status: current every day smoker cigarettes [ Other cigarette details: .5 pack per day] Alcohol intake: never Substance/Drug Use: never Lives independently: Yes Household members: spouse Current occupational status: disabled Female Reproductive History: Para: 3 Spontaneous abortions: No Physical Exam Const: COMMON NORMALS: no acute distress, patient oriented x3 and alert HENMT: COMMON NORMALS: normocephalic, atraumatic and hearing grossly normal bilaterally HEAD & SCALP: normocephalic and atraumatic Eye: COMMON NORMALS: Equal, round and reactive pupils present, EOMs intact bilaterally and conjunctivae normal CONJUNCTIVA: Yes conjunctivae normal PUPIL: Yes Equal, round and reactive pupils present Neck/C-Spine: COMMON NORMALS: full ROM and no JVD Lymph: LYMPHATIC: no lymphadenopathy noted Resp: COMMON NORMALS: normal respiratory effort, No retractions and No use of accessory muscles Cardio: COMMON NORMALS: no JVD and regular rate RATE: regular rate Neuro: COMMON NORMALS: patient oriented x3 SENSORIUM/ORIENTATION: Yes alert Psych: COMMON NORMALS: mental status grossly normal, Normal thought process present, cooperative and normal affect THOUGHT PROCESS: Normal thought process present Skin: COMMON NORMALS: no rashes or lesions noted and turgor normal NARRATIVE SKIN EXAM: Patient has an otherwise well-healing surgical scar through her lumbar region with a small fluid bulge in the mid incision line. It is approximately 1 cm in length and 0.5 cm across. It is fluctuant in this area. GENERAL SKIN EXAM: no rashes or lesions noted and turgor normal Procedures Abscess I/D Site: back (Lumbar surgical incision) Sedation/analgesia: none (Oral Percocet and IM Toradol given) Amount of anesthesia used (mL): 0 Technique: needle aspiration Amount of fluid expressed (mL): 15 Irrigation: No Packing used?: none Course Vital Signs: Vital signs: Vital Signs Temperature 98.4 F 09/15/22 19:55 Pulse Rate 75 09/15/22 19:55 Respiratory Rate 16 09/15/22 21:14 Blood Pressure 181/90 09/15/22 19:55 Pulse Oximetry 99 09/15/22 19:55 Oxygen Delivery Me thod Room Air 09/15/22 19:55 MDM - Skin/Abscess/Foreign Bdy Medicial Decision Making Patient presented to the emergency department today for increased low back pain and swelling. I am familiar with this patient and her postoperative issues. She is being closely followed by her surgeon and has an upcoming appointment however, she is concerned that she is not having any draining and the fluid is causing pressure in her low back. Patient did have some fluctuance over the midportion of her incision and there does appear to be a fluid bulge approximately 1 cm in length and 0.5 cm in diameter in this area. After cleaning the area with Betadine and doing a small needle aspiration recovering approximately 1 cc of serosanguineous fluid in the syringe, the area began to drain profusely. A total of 10 to 15 cc of thin, yellow serosanguineous fluid spontaneously drained. Once it had slowed, fresh bandaging was applied. I recall patient's sensitivity to adhesives so, we used Telfa and paper tape. Encouraged her to continue monitoring the area and changing out with clean bandaging as needed for continued draining. She is encouraged to keep her upcoming appointment with her surgeon to continue discussions regarding recurrent wound draining. She is to continue watching for spreading redness, increasing pain, or new onset fever. Differential Diagnosis Likely abscess of skin or subcutaneous tissue, cellulitis, impetigo and contact dermatitis Discharge Plan Discharge Patient Disposition: Home Clinical Impression: Yellow-colored discharge from wound, Status post lumbar spinal fusion Condition: Stable Prescriptions: No Action escitalopram oxalate [Lexapro] 10 mg tablet 10 mg PO DAILY Qty: 30 2RF bupropion HCl 150 mg tablet extended release 24 hr 150 mg PO QAM Qty: 30 5RF albuterol sulfate [Ventolin HFA] 90 mcg/actuation HFA aerosol inhaler 2 puff inhalation Q6H PRN (Reason: shortness of breath or wheezing) Qty: 8.5 0RF (DME) DME: Shower Stool See Rx Instructions .Route .MEDSUPPLY Qty: 1 0RF Rx Instructions: As directed Date of Surgery: 08/13/22 oxycodone-acetaminophen [Percocet] 10-325 mg tablet 1 tab PO Q4H PRN (Reason: Pain) lisinopril-hydrochlorothiazide 20-25 mg Tablet 1 tab PO DAILY ondansetron 4 mg tablet,disintegrating 4 mg PO Q8H PRN (Reason: nausea and vomiting) Qty: 15 0RF Discharge Orders: Discharge ED (Routine); Ordered 09/15/22 Ordered By: Kristine Vanegas Referrals: Chevy Cruz, [Primary Care Provider] - Discharge Diet: Usual diet Discharge Activity: Increase activity as tolerated Patient Instructions: Acute Wound Care (ED) Activity Restrictions/Additional Instructions: Continue to provide wound care as you have been at home. We drained approximately 10 to 15 cc of serosanguineous material from your incision site. I recommend reaching out to your primary care doctor/surgeon on Saturday to discuss your evaluation from the ER today and be sure to keep your upcoming appointment with them for a wound recheck. Coding Level of Care Code ED [place] Worker Helper for Zabrina Burgess
== END 2022-09-15 21:58 | disposition home or self-care (01) ==
PROVIDERS: Emergency Provider Physician Assistant; PCP Orthopaedic Surgery
DX: T81.41XA Infection following a procedure, superficial incisional surgical site, initial encounter (principal); B99.9 Unspecified infectious disease; Y83.8 Other surgical procedures as the cause of abnormal reaction of the patient, or of later complication, without mention of misadventure at the time of the procedure; F17.210 Nicotine dependence, cigarettes, uncomplicated; I10 Essential (primary) hypertension; E78.5 Hyperlipidemia, unspecified
CPT/HCPCS: 10160; 96372; 99284; J1885

== ENCOUNTER → 2022-09-18 13:02 | Outpatient (BNVA) | payer MEDICAID, SELFPAY | PROVIDERS: PCP Orthopaedic Surgery; Visit Provider Orthopaedic Surgery | DX: Z47.89 Encounter for other orthopedic aftercare (principal); Z98.1 Arthrodesis status | CPT/HCPCS: 99024 ==

== ENCOUNTER → 2022-10-02 13:24 | Outpatient (BNVA) | payer MEDICAID, SELFPAY | PROVIDERS: PCP Orthopaedic Surgery; Visit Provider Orthopaedic Surgery | DX: Z47.89 Encounter for other orthopedic aftercare (principal); Z98.1 Arthrodesis status | CPT/HCPCS: 72100; 99024 ==

== ENCOUNTER → 2022-10-30 13:25 | Outpatient (BNVA) | payer MEDICAID, SELFPAY | PROVIDERS: PCP Family Medicine; Visit Provider Orthopaedic Surgery | DX: Z98.1 Arthrodesis status (principal) | CPT/HCPCS: 72100; 99024 ==

== ENCOUNTER 2022-12-16 22:52 | Emergency (ER) | payer MEDICAID, SELFPAY ==
[2022-12-16 22:58] VITALS: BP 160/79; PULSE 70; RESP 16; TEMP 36.6; O2SAT 99; BMI 45.7
[2022-12-16 23:02] VITALS: BP 154/74; PULSE 63; RESP 18; O2SAT 98
[2022-12-17 00:02] VITALS: BP 151/74; PULSE 66; RESP 18
--- NOTE | 2022-12-17 00:26 | W.ED.BACK ---
HPI - Back Pain/Injury General: Chief Complaint: Back Pain/Injury Stated Complaint: back pain Time Seen by Provider: 12/16/22 23:06 Source: patient Mode of arrival: ambulatory Limitations: no limitations History of Present Illness: 42-year-old female who has a history of chronic back pain she did have lumbar surgery 10 weeks ago states she has been taking Percocet for pain and over the last week the pain is worse and has been having some pain on the left side is worse when she moves. Hurts to palpation as well denies any bowel or bladder incontinence denies any saddle anesthesia Associated symptoms: Deny abdominal pain, chills, fever(s), nausea or vomiting Review of Systems Const: Denies: fever(s) or chills Eyes: Denies: eye discomfort ENMT: Denies: throat pain or dental pain Card: Denies: chest pain Resp: Denies: dyspnea GI: Denies: abdominal pain, nausea or vomiting : Denies: difficulty voiding Musc: Reports: back pain; Denies: neck pain Skin/Breast: Denies: rash Neuro: Denies: headache(s) PFSH ED PFSH: Medical History Chronic low back pain with sciatica Chronic narcotic use ~ 2yrs, for back pain Dyslipidemia borderline by report, not on treatment Encounter for long-term opiate analgesic use History of pulmonary embolism post op, had DVT Hypertension Obesity BMI 39 Opioid contract exists Rosacea Surgical History H/O laminectomy History of back surgery (~2018) History of carpal tunnel release left History of D&C History of hysterectomy due to life threatening bleeding while on anticoagulation for PE/DVT History of laparoscopic adjustable gastric banding History of right knee surgery (~2008) patellar realignment History of tonsillectomy Family History Father Cancer pancreatic cancer Other Diabetes Heart disease Hypertension Social History Smoking and tobacco status: current every day smoker cigarettes [ Other cigarette details: .5 pack per day] and e-cigarettes E-Cigarette Details: vaporizer device and without nicotine Alcohol intake: never Substance/Drug Use: never Lives independently: Yes Household members: spouse Current occupational status: disabled Female Reproductive History: Para: 3 Spontaneous abortions: No Physical Exam Const: COMMON NORMALS: no acute distress, patient oriented x3 and healthy appearing HENMT: COMMON NORMALS: normocephalic and atraumatic HEAD & SCALP: normocephalic and atraumatic Eye: COMMON NORMALS: conjunctivae normal CONJUNCTIVA: Yes conjunctivae normal Neck/C-Spine: COMMON NORMALS: full ROM and supple Chest: COMMONS NORMALS: normal inspection of the chest and normal palpation of entire chest wall Resp: COMMON NORMALS: normal respiratory effort, No retractions, No use of accessory muscles and clear to auscultation bilaterally AUSCULTATION: clear to auscultation bilaterally Cardio: COMMON NORMALS: regular rate, regular rhythm and No murmurs present (Cardio) RATE: regular rate RHYTHM: regular rhythm GI: COMMON NORMALS: Normal to inspection, nondistended, normoactive bowel sounds present, Soft to palpation, non-tender and no masses PALPATION: Yes Soft to palpation Back/Pelvis: OTHER: Tenderness along left lower back no midline tenderness no saddle anesthesia Extremity: COMMON NORMALS: normal to inspection and full ROM Neuro: COMMON NORMALS: patient oriented x3, moves all extremities and no focal motor deficits Psych: COMMON NORMALS: mental status grossly normal, Normal thought process present and cooperative THOUGHT PROCESS: Normal thought process present Skin: COMMON NORMALS: no rashes or lesions noted and no wounds GENERAL SKIN EXAM: no rashes or lesions noted Course Vital Signs: Vital signs: Vital Signs Temperature 97.9 F 12/16/22 22:58 Pulse Rate 70 12/16/22 22:58 Respiratory Rate 16 12/16/22 22:58 Blood Pressure 160/79 12/16/22 22:58 Pulse Oximetry 99 12/16/22 22:58 Oxygen Delivery Me thod Room Air 12/16/22 22:58 MDM - Back Pain/Injury Medical Decision Making Patient presents here with low back pain with some sciatica down the left side no midline tenderness no signs of saddle anesthesia no signs of epidural abscess or cord compression did give her pain meds we will place her on muscle relaxant did give her a steroid shot here as well she is to follow-up with her surgeon Dr. Cruz return if worsening Discharge Plan Discharge Patient Disposition: Home Clinical Impression: Chronic back pain Condition: Stable Prescriptions: New methocarbamol 750 mg tablet 750 mg PO Q6H PRN (Reason: spasms) Qty: 20 0RF No Action albuterol sulfate [Ventolin HFA] 90 mcg/actuation HFA aerosol inhaler 2 puff inhalation Q6H PRN (Reason: shortness of breath or wheezing) Qty: 8.5 0RF gabapentin 300 mg capsule 300 mg PO TID Qty: 90 0RF lisinopril-hydrochlorothiazide 20-25 mg tablet 1 tab PO DAILY Qty: 90 2RF escitalopram oxalate 20 mg tablet 20 mg PO DAILY Qty: 30 5RF bupropion HCl 300 mg tablet extended release 24 hr 300 mg PO QAM Qty: 30 5RF oxycodone-acetaminophen [Percocet] 10-325 mg tablet 1 tab PO Q4H PRN (Reason: Pain) ondansetron 4 mg tablet,disintegrating 4 mg PO Q8H PRN (Reason: nausea and vomiting) Qty: 15 0RF Discharge Orders: Discharge ED (Routine); Ordered 12/17/22 Ordered By: Malinda Williamson Referrals: Sb Le DO [Primary Care Provider] - 1-3 days Discharge Diet: Advance as tolerated Discharge Activity: Resume usual activity Patient Instructions: Back Pain (ED) Coding Level of Care Code ED [facility] Contract Manager for Zabrina Burgess
[2022-12-17 00:37] VITALS: RESP 18
[2022-12-17] MEDS: dexamethasone 10 mg/mL INJ IM (00:37)
[2022-12-17] MEDS: morphine 4 mg/mL SDV 1 mL IM (00:37)
[2022-12-17 01:02] VITALS: BP 140/90; PULSE 111; RESP 16; O2SAT 100
== END 2022-12-17 01:05 | disposition home or self-care (01) ==
PROVIDERS: Emergency Provider Emergency Medicine; PCP Family Medicine
DX: G89.29 Other chronic pain (principal); M54.9 Dorsalgia, unspecified; F17.210 Nicotine dependence, cigarettes, uncomplicated; E78.5 Hyperlipidemia, unspecified; I10 Essential (primary) hypertension; Z86.711 Personal history of pulmonary embolism
CPT/HCPCS: 96372; 99284; J1100; J2270

== ENCOUNTER 2023-01-01 22:41 | Emergency (ER) | payer MEDICAID, SELFPAY ==
[2023-01-01 22:53] VITALS: BP 133/65; PULSE 82; RESP 18; TEMP 37.4; O2SAT 99; BMI 42.7
--- NOTE | 2023-01-02 01:15 | XRR_ITS ---
PROCEDURE INFORMATION: Exam: XR Pelvis Exam date and time: 01/02/2023 2:27 AM Age: 42 years old Clinical indication: Injury or trauma; Fall; Prior surgery; Surgery date: 1-6 months; Surgery type: Lumbar fusion TECHNIQUE: Imaging protocol: Radiologic exam of the pelvis. Views: 1 or 2 view. COMPARISON: CT abdomen pelvis w con* [id number] 08/23/2022 6:04 PM FINDINGS: Bones/joints: Unremarkable. No acute fracture. Partially included lower lumbar spine posterior fusion hardware. Hip joint alignments anatomic. Pelvic ring alignment is normal. Soft tissues: Unremarkable. XR/XR pelvis 1-2V* [id number] IMPRESSION: No acute findings.
--- NOTE | 2023-01-02 01:15 | XRR_ITS ---
PROCEDURE INFORMATION: Exam: XR Lumbosacral Spine Exam date and time: 01/02/2023 2:11 AM Age: 42 years old Clinical indication: Injury or trauma; Fall; Prior surgery; Surgery date: 1-6 months; Surgery type: Lumbar fusion TECHNIQUE: Imaging protocol: Radiologic exam of the lumbosacral spine. Views: 2 or 3 views. COMPARISON: CR XR lumbar spine 2-3V* [id number] 10/30/2022 1:30 PM FINDINGS: Bones/joints: L3 through S1 posterior fusion without change in alignment. No acute fracture. Soft tissues: Unremarkable. XR/XR lumbar spine 2-3V* [id number] IMPRESSION: Unremarkable lumbar spine postoperative surveillance. No change from comparison.
--- NOTE | 2023-01-02 02:21 | W.ED.BACK ---
HPI - Back Pain/Injury General: Chief Complaint: Back Pain/Injury Stated Complaint: fell, lower back pain Time Seen by Provider: 01/02/23 02:00 History of Present Illness: 42yo female presents via private vehicle for evaluation of low back pain that radiates to the right hip area. Patient reports she is 5 months out from a lumbar fusion. States her surgery was with Dr. Cruz. Patient states that she has had increased discomfort in her low back area and into the right hip area, but she did not have the sharp pain. She reports that her leg gave out on her today, causing the fall. Reports that her pain has been significant since. States that the fall occurred at 1900. She took her home Percocet at 2000 and has had no improvement in her symptoms. Patient denies recent fever, chills, body aches, groin numbness/tingling, incontinence, lower extremity weakness. Associated symptoms: Deny chills or fever(s) Review of Systems Const: Denies: fever(s), chills or body aches : Denies: difficulty voiding or urinary hesitancy Musc: Reports: back pain (low back) Neuro: Denies: numbness in extremities or weakness in extremities PFSH ED PFSH: Medical History (Updated 01/02/23 @ 03:15 by BLANQUITA Rodriguez) Chronic low back pain with sciatica Chronic narcotic use ~ 2yrs, for back pain Dyslipidemia borderline by report, not on treatment Encounter for long-term opiate analgesic use History of pulmonary embolism post op, had DVT Hypertension Obesity BMI 39 Opioid contract exists Rosacea Surgical History (Updated 01/02/23 @ 03:15 by BLANQUITA Rodriguez) H/O laminectomy History of back surgery (~2018) History of carpal tunnel release left History of D&C History of hysterectomy due to life threatening bleeding while on anticoagulation for PE/DVT History of laparoscopic adjustable gastric banding History of right knee surgery (~2008) patellar realignment History of tonsillectomy Family History Father Cancer pancreatic cancer Other Diabetes Heart disease Hypertension Social History Smoking and tobacco status: current every day smoker cigarettes [ Other cigarette details: .5 pack per day] and e-cigarettes E-Cigarette Details: vaporizer device and without nicotine Alcohol intake: never Substance/Drug Use: never Lives independently: Yes Household members: spouse Current occupational status: disabled Female Reproductive History: Para: 3 Spontaneous abortions: No Physical Exam Const: COMMON NORMALS: no acute distress, patient oriented x3 and alert ORIENTATION/CONSCIOUSNESS: Yes awake HENMT: COMMON NORMALS: normocephalic and atraumatic HEAD & SCALP: normocephalic and atraumatic Eye: GENERAL EYE: appearance normal, both eyes and all related structures Chest: CHEST: Yes Symmetrical chest wall rise Resp: COMMON NORMALS: normal respiratory effort EFFORT & INSPECTION: No respiratory distress Back/Pelvis: LUMBAR SPINE/LOWER BACK: Yes pain with ROM and Yes straight leg raise negative bilaterally BACK IMAGE (FEMALE): 1. indicated area of pain Extremity: COMMON NORMALS: capillary refill normal OTHER: + Movement of bilateral toes. Equal dorsiflexion and plantarflexion bilaterally. Normal flexion of the great toes bilaterally. Pedal pulse 2+, capillary refill less than 3 seconds Neuro: COMMON NORMALS: patient oriented x3 SENSORIUM/ORIENTATION: Yes alert Psych: COMMON NORMALS: cooperative ATTITUDE: Yes calm Course Vital Signs: Vital signs: Vital Signs Temperature 99.4 F 01/01/23 22:53 Pulse Rate 82 01/01/23 22:53 Respiratory Rate 18 01/01/23 22:53 Blood Pressure 133/65 01/01/23 22:53 Pulse Oximetry 99 01/01/23 22:53 Oxygen Delivery Me thod Room Air 01/01/23 22:53 MDM - Back Pain/Injury Medical Decision Making 42yo female here with low back pain that radiates into the right hip that has been ongoing for the past couple of days, but worsened after a fall this evening at 1900. Patient did take her prescribed Percocet at 2000, but had no improvement in her pain. Patient reports she is 5 months status post lumbar fusion. She denies recent fever, chills, body aches, groin numbness/tingling, incontinence, lower extremity weakness. Patient is nontoxic in appearance. Vital signs are stable. Differentials include lumbar radiculopathy, sciatica, fracture, hardware failure X-ray of the lumbar spine and pelvis with no acute bony abnormalities noted. Hardware is noted to be in appropriate position. Discussed findings with patient. Patient did receive ketorolac and orphenadrine while in the emergency department. Encourage patient to call her surgeon Saturday morning with an update of her symptoms and to schedule a recheck. Short course orphenadrine prescribed to help with the discomfort. Discussed sedation precautions. Recommend returning to the emergency department if any rapid worsening symptoms and as needed. Differential Diagnosis Likely lumbar radiculopathy and sciatica Labs Radiology Impressions Lumbar Spine X-Ray 01/02/23 01:15 IMPRESSION: Unremarkable lumbar spine postoperative surveillance. No change from comparison. Pelvis X-Ray 01/02/23 01:15 IMPRESSION: No acute findings. Discharge Plan Discharge Patient Disposition: Home Clinical Impression: Low back pain, History of lumbar fusion Condition: Stable Prescriptions: New orphenadrine citrate 100 mg tablet extended release 100 mg PO BID PRN (Reason: pain) Qty: 20 0RF No Action amoxicillin-pot clavulanate 875-125 mg tablet 1 tab PO BID Qty: 20 0RF albuterol sulfate [Ventolin HFA] 90 mcg/actuation HFA aerosol inhaler 2 puff inhalation Q6H PRN (Reason: shortness of breath or wheezing) Qty: 8.5 0RF lisinopril-hydrochlorothiazide 20-25 mg tablet 1 tab PO DAILY Qty: 90 2RF escitalopram oxalate 20 mg tablet 20 mg PO DAILY Qty: 30 5RF bupropion HCl 300 mg tablet extended release 24 hr 300 mg PO QAM Qty: 30 5RF Linzess 72 mcg capsule 72 mcg PO DAILY PRN oxycodone-acetaminophen [Percocet] 10-325 mg tablet 1 tab PO Q4H PRN (Reason: Pain) ondansetron 4 mg tablet,disintegrating 4 mg PO Q8H PRN (Reason: nausea and vomiting) Qty: 15 0RF Discharge Orders: Discharge ED (Routine); Ordered 01/02/23 Ordered By: Jeovany Olivier Referrals: Sb Le DO [Primary Care Provider] - Discharge Diet: Usual diet Discharge Activity: Increase activity as tolerated Patient Instructions: Back Pain (ED) Activity Restrictions/Additional Instructions: Call Dr Cruz Saturday with an update of your symptoms and to discuss or recheck Do not drive or operate heavy machinery while taking orphenadrine Return to the emergency department if any rapid worsening symptoms and as needed Coding Level of Care Code ED Brand Representative for Zabrina Burgess
[2023-01-02] MEDS: ketorolac 30 mg/mL INJ IM (02:32)
[2023-01-02] MEDS: orphenadrine 30 mg/mL Inj 2 mL 60 MG IM (02:33)
[2023-01-02 03:25] VITALS: BP 133/65; PULSE 82; RESP 18; TEMP 37.4; O2SAT 99
== END 2023-01-02 03:26 | disposition home or self-care (01) ==
PROVIDERS: Emergency Provider Family Medicine; PCP Family Medicine
DX: M54.50 Low back pain, unspecified (principal); F17.210 Nicotine dependence, cigarettes, uncomplicated; E78.5 Hyperlipidemia, unspecified; I10 Essential (primary) hypertension
CPT/HCPCS: 12345; 72100; 72170; 96372; 99284; J1885; J2360

== ENCOUNTER → 2023-01-08 09:03 | Outpatient (BNVA) | payer MEDICAID, SELFPAY | PROVIDERS: PCP Family Medicine; Visit Provider Orthopaedic Surgery | DX: M54.16 Radiculopathy, lumbar region (principal); Z98.1 Arthrodesis status | CPT/HCPCS: 72100; 99214 ==

== ENCOUNTER → 2023-01-29 14:00 | Outpatient (BNVA) | payer MEDICAID, SELFPAY | PROVIDERS: PCP Family Medicine; Visit Provider Orthopaedic Surgery | DX: M54.16 Radiculopathy, lumbar region (principal); Z47.89 Encounter for other orthopedic aftercare; Z98.1 Arthrodesis status | CPT/HCPCS: 72100; 99213 ==

== ENCOUNTER 2023-02-19 21:08 | Emergency (ER) | payer MEDICAID, SELFPAY ==
[2023-02-19 21:22] VITALS: BP 150/103; PULSE 67; RESP 15; TEMP 36.8; O2SAT 97; BMI 43.4
--- NOTE | 2023-02-19 22:01 | XRR_ITS ---
PROCEDURE INFORMATION: Exam: XR Lumbosacral Spine Exam date and time: 02/19/2023 10:08 PM Age: 42 years old Clinical indication: Low back pain; Prior surgery; Surgery date: 6+ months; Surgery type: Lumbar; Additional info: Fall. Pain TECHNIQUE: Imaging protocol: Radiologic exam of the lumbosacral spine. Views: 2 or 3 views. COMPARISON: CR XR lumbar spine 2-3V* [id number] 01/29/2023 2:02 PM FINDINGS: Bones/joints: L3-S1 fusion is intact. No change has occurred. No acute fracture. Normal alignment. L4 laminectomy. L4-L5 disc spacer again seen. Soft tissues: Absent gallbladder. XR/XR lumbar spine 2-3V* [id number] IMPRESSION: 1. No acute findings. 2. L3-S1 fusion is intact. No change has occurred from 01/29/2023.
[2023-02-19] MEDS: morphine 4 mg/mL SDV 1 mL 10 MG IM (22:13)
[2023-02-19] MEDS: ondansetron 4 MG Tablet PO (22:13)
[2023-02-19 22:32] VITALS: BP 150/103; PULSE 67; RESP 15; TEMP 36.8; O2SAT 97
--- NOTE | 2023-02-20 11:10 | ED_ITS ---
HPI - Back Pain/Injury General: Chief Complaint: Back Pain/Injury Stated Complaint: Fell Time Seen by Provider: 02/19/23 21:37 History of Present Illness: This patient is a 42-year-old white female who presents to the ER with low back pain. Patient states she slipped on the floor 3 hours prior to arrival and landed on her buttocks and back. She is concerned because she has had back surgery with spinal fusion in the lumbosacral spine. She is having some mild pain in the right buttock. No radiation of pain down the leg. No incontinence of urine or stool. Patient is on Percocet for chronic pain at home and she is under pain contract. Review of Systems General: Reports: 10 or more systems reviewed and unremarkable except in HPI and below PFSH ED PFSH: Medical History Chronic low back pain with sciatica Chronic narcotic use ~ 2yrs, for back pain Dyslipidemia borderline by report, not on treatment Encounter for long-term opiate analgesic use History of pulmonary embolism post op, had DVT Hypertension Obesity BMI 39 Opioid contract exists Rosacea Surgical History H/O laminectomy History of back surgery (~2017) History of carpal tunnel release left History of D&C History of hysterectomy due to life threatening bleeding while on anticoagulation for PE/DVT History of laparoscopic adjustable gastric banding History of right knee surgery (~2008) patellar realignment History of tonsillectomy Family History Father Cancer pancreatic cancer Other Diabetes Heart disease Hypertension Social History Smoking and tobacco status: current every day smoker cigarettes [ Other cigarette details: .5 pack per day] and e-cigarettes E-Cigarette Details: vaporizer device and without nicotine Alcohol intake: never Substance/Drug Use: never Lives independently: Yes Household members: spouse Current occupational status: disabled Female Reproductive History: Para: 3 Spontaneous abortions: No Physical Exam Const: COMMON NORMALS: patient oriented x3 GENERAL APPEARANCE: in distress HENMT: COMMON NORMALS: normocephalic and atraumatic HEAD & SCALP: normocephalic and atraumatic Eye: COMMON NORMALS: Equal, round and reactive pupils present, EOMs intact bilaterally and conjunctivae normal CONJUNCTIVA: Yes conjunctivae normal PUPIL: Yes Equal, round and reactive pupils present Neck/C-Spine: COMMON NORMALS: full ROM and supple Resp: COMMON NORMALS: normal respiratory effort and clear to auscultation bilaterally AUSCULTATION: clear to auscultation bilaterally Cardio: COMMON NORMALS: regular rate and regular rhythm RATE: regular rate RHYTHM: regular rhythm GI: COMMON NORMALS: Normal to inspection, nondistended, normoactive bowel sounds present, Soft to palpation and non-tender PALPATION: Yes Soft to palpation Back/Pelvis: GENERAL BACK: Yes tenderness (Lower lumbar spine.) Neuro: COMMON NORMALS: patient oriented x3 Skin: COMMON NORMALS: no rashes or lesions noted and no wounds GENERAL SKIN EXAM: no rashes or lesions noted Course Vital Signs: Vital signs: Vital Signs Temperature 98.3 F 02/19/23 22:32 Pulse Rate 67 02/19/23 22:32 Respiratory Rate 15 02/19/23 22:32 Blood Pressure 150/103 02/19/23 22:32 Pulse Oximetry 97 02/19/23 22:32 Oxygen Delivery Me thod Room Air 02/19/23 21:22 MDM - Back Pain/Injury Medical Decision Making X-rays of the lumbar spine did not reveal any fractures. All the hardware is i ntact. Patient was given injection of morphine for pain in the emergency department. She was discharged in stable condition instructed to contact her primary care physician and/or pain specialist tomorrow for ongoing treatment. Labs Radiology Impressions Lumbar Spine X-Ray 02/19/23 22:01 IMPRESSION: 1. No acute findings. 2. L3-S1 fusion is intact. No change has occurred from 01/29/2023. All radiology interpretation(s) finalized by discharge Discharge Plan Discharge Patient Disposition: Home Clinical Impression: Acute lumbar myofascial strain Condition: Stable Prescriptions: No Action amoxicillin-pot clavulanate 875-125 mg tablet 1 tab PO BID Qty: 20 0RF albuterol sulfate [Ventolin HFA] 90 mcg/actuation HFA aerosol inhaler 2 puff inhalation Q6H PRN (Reason: shortness of breath or wheezing) Qty: 8.5 0RF lisinopril-hydrochlorothiazide 20-25 mg tablet 1 tab PO DAILY Qty: 90 2RF escitalopram oxalate 20 mg tablet 20 mg PO DAILY Qty: 30 5RF bupropion HCl 300 mg tablet extended release 24 hr 300 mg PO QAM Qty: 30 5RF diazepam [Valium] 5 mg tablet 5 mg PO TID PRN (Reason: muscle spasm) 7 Days Qty: 21 0RF Linzess 72 mcg capsule 72 mcg PO DAILY PRN oxycodone-acetaminophen [Percocet] 10-325 mg tablet 1 tab PO Q4H PRN (Reason: Pain) orphenadrine citrate 100 mg tablet extended release 100 mg PO BID PRN (Reason: pain) Qty: 20 0RF ondansetron 4 mg tablet,disintegrating 4 mg PO Q8H PRN (Reason: nausea and vomiting) Qty: 15 0RF Discharge Orders: Discharge ED (Routine); Ordered 02/19/23 Ordered By: Slim Montenegro Referrals: Sb Le DO [Primary Care Provider] - Patient Instructions: Opioid Safety, Pain Management Coding Level of Care Code ED Purchasing Contracting Clerk for Zabrina Burgess
== END 2023-02-19 22:33 | disposition home or self-care (01) ==
PROVIDERS: Emergency Provider Emergency Medicine; PCP Family Medicine
DX: S39.012A Strain of muscle, fascia and tendon of lower back, initial encounter (principal); F17.210 Nicotine dependence, cigarettes, uncomplicated; F17.290 Nicotine dependence, other tobacco product, uncomplicated; E78.5 Hyperlipidemia, unspecified; I10 Essential (primary) hypertension; W01.0XXA Fall on same level from slipping, tripping and stumbling without subsequent striking against object, initial encounter
CPT/HCPCS: 72100; 96372; 99284; J2270; Q0162

== ENCOUNTER → 2023-03-21 14:49 | Outpatient (BNVA) | payer MEDICAID, SELFPAY | PROVIDERS: PCP Family Medicine; Visit Provider Orthopaedic Surgery | DX: Z47.89 Encounter for other orthopedic aftercare (principal); Z98.1 Arthrodesis status; M54.50 Low back pain, unspecified | CPT/HCPCS: 72100; 99214 ==

== ENCOUNTER 2023-04-18 02:01 | Emergency (ER) | payer MEDICAID, SELFPAY ==
[2023-04-18 02:11] VITALS: BP 165/80; PULSE 63; RESP 18; TEMP 36.6; O2SAT 99; BMI 41.5
[2023-04-18] MEDS: dexamethasone 10 mg/mL INJ IM (02:49)
[2023-04-18] MEDS: orphenadrine 30 mg/mL Inj 2 mL 60 MG IM (02:49)
[2023-04-18] MEDS: ketorolac 60 mg/2 mL INJ IM (02:49)
--- NOTE | 2023-04-18 02:51 | ED_ITS ---
HPI - Back Pain/Injury General: Chief Complaint: Back Pain/Injury Stated Complaint: back pain, knot, fall Time Seen by Provider: 04/18/23 02:04 History of Present Illness: Patient presents to the ER complaining of back pain. Patient states she almost tripped over her cat and fell and that she overdone it today while cooking for Thanksgiving. Patient did states she does see the pain clinic doctor and she is on pain medicine such as Percocet 02/26/2025' but these are no longer working and she has appoint with him to talk about Prescribing a different medicine on the fifth. Patient did not actually fall, she did not hit anything, she did not lose control or bowel or bladder and does not have any weakness. Review of Systems General: Reports: 10 or more systems reviewed and unremarkable except in HPI and below PFSH ED PFSH: Medical History Chronic low back pain with sciatica Chronic narcotic use ~ 2yrs, for back pain Dyslipidemia borderline by report, not on treatment Encounter for long-term opiate analgesic use History of pulmonary embolism post op, had DVT Hypertension Obesity BMI 39 Opioid contract exists Rosacea Surgical History H/O laminectomy History of back surgery (~2017) History of carpal tunnel release left History of D&C History of hysterectomy due to life threatening bleeding while on anticoagulation for PE/DVT History of laparoscopic adjustable gastric banding History of right knee surgery (~2008) patellar realignment History of tonsillectomy Family History Father Cancer pancreatic cancer Other Diabetes Heart disease Hypertension Social History Smoking and tobacco/nicotine status: current every day tobacco/nicotine user cigarettes [ Other cigarette details: .5 pack per day] and e-cigarettes E- Cigarette Details: vaporizer device and without nicotine Alcohol intake: never Substance/Drug Use: never Lives independently: Yes Household members: spouse Current occupational status: disabled Female Reproductive History: Para: 3 Spontaneous abortions: No Physical Exam Const: COMMON NORMALS: no acute distress, average body habitus, patient oriented x3, no limitations, healthy appearing, alert and well nourished HENMT: COMMON NORMALS: normocephalic, atraumatic, hearing grossly normal bilaterally, external ears normal, Normal external nose present, moist oral mucous membranes and oropharynx normal HEAD & SCALP: normocephalic and atraumatic NOSE: Normal external nose present EXTERNAL EAR: Yes external ears normal Neck/C-Spine: COMMON NORMALS: full ROM, no lymphadenopathy, supple, no meningeal signs, no JVD and Thyroid normal THYROID: Thyroid normal Chest: COMMONS NORMALS: normal inspection of the chest and normal palpation of entire chest wall Resp: COMMON NORMALS: normal respiratory effort, No retractions, No use of accessory muscles and clear to auscultation bilaterally AUSCULTATION: clear to auscultation bilaterally Cardio: COMMON NORMALS: no JVD, regular rate, regular rhythm, S1 normal heart sound present, S2 normal heart sound present, No gallops present (Cardio), No clicks present (Cardio), No murmurs present (Cardio) and No rub (Cardio) RATE: regular rate RHYTHM: regular rhythm HEART SOUNDS: S1 normal heart sound present and S2 normal heart sound present GI: COMMON NORMALS: Normal to inspection, nondistended, normoactive bowel sounds present, Soft to palpation, non-tender and No hepatosplenomegaly present PALPATION: Yes Soft to palpation and Yes No hepatosplenomegaly present Back/Pelvis: OTHER: Tender lumbar paraspinal musculature. Bilaterally Neuro: COMMON NORMALS: patient oriented x3 SENSORIUM/ORIENTATION: Yes alert MENINGEAL SIGNS: Yes no meningeal signs Course Vital Signs: Vital signs: Vital Signs Temperature 97.9 F 04/18/23 02:11 Pulse Rate 63 04/18/23 02:11 Respiratory Rate 18 04/18/23 02:11 Blood Pressure 165/80 04/18/23 02:11 Pulse Oximetry 99 04/18/23 02:11 Oxygen Delivery Me thod Room Air 04/18/23 02:11 MDM - Back Pain/Injury Medical Decision Making Patient has known chronic back pain and she almost fell today and she knows she overdid it cooking thinks having dinner. She already sees pain management and she has appointment with them on April 30. Patient was given a shot of Toradol 60 mg IM, Norflex 60 mg, IM and Decadron 10 mg IM. Patient be discharged home to follow-up with her PCP for further evaluation and treatment. Differential Diagnosis Likely strain of lumbar region; Unlikely lumbar radiculopathy, sciatica, renal colic, pyelonephritis, thoracic back pain, AAA or discitis Medical Records I reviewed the patient's medical records. Labs I reviewed the patient's lab results. No radiology studies performed this visit Discharge Plan Discharge Patient Disposition: Home Clinical Impression: Strain of lumbar region Qualifiers: Encounter type: initial encounter Qualified Code(s): S39.012A - Strain of muscle, fascia and tendon of lower back, initial encounter Condition: Stable Prescriptions: No Action amoxicillin-pot clavulanate 875-125 mg tablet 1 tab PO BID Qty: 20 0RF diazepam [Valium] 5 mg tablet 5 mg PO TID PRN (Reason: muscle spasm) 7 Days Qty: 21 0RF albuterol sulfate [Ventolin HFA] 90 mcg/actuation HFA aerosol inhaler 2 puff inhalation Q6H PRN (Reason: shortness of breath or wheezing) Qty: 8.5 0RF lisinopril-hydrochlorothiazide 20-25 mg tablet 1 tab PO DAILY Qty: 90 2RF escitalopram oxalate 20 mg tablet 20 mg PO DAILY Qty: 30 5RF bupropion HCl 300 mg tablet extended release 24 hr 300 mg PO QAM Qty: 30 5RF Linzess 72 mcg capsule 72 mcg PO DAILY PRN oxycodone-acetaminophen [Percocet] 10-325 mg tablet 1 tab PO Q4H PRN (Reason: Pain) orphenadrine citrate 100 mg tablet extended release 100 mg PO BID PRN (Reason: pain) Qty: 20 0RF ondansetron 4 mg tablet,disintegrating 4 mg PO Q8H PRN (Reason: nausea and vomiting) Qty: 15 0RF Discharge Orders: Discharge ED (Routine); Ordered 04/18/23 Ordered By: Mata Hicks Referrals: Sb Le DO [Primary Care Provider] - 1 week Patient Instructions: Low Back Strain (ED), Opioid Safety, Pain Management Activity Restrictions/Additional Instructions: Please continue take your Percocet and Norflex at home as previously prescribed. Please keep your appointment with your pain management doctor for further evaluation and treatment and possible medication changes. Coding Level of Care Code ED Office Technology Instructor for Zabrina Burgess
== END 2023-04-18 03:07 | disposition home or self-care (01) ==
PROVIDERS: Emergency Provider Emergency Medicine; PCP Family Medicine
DX: S39.012A Strain of muscle, fascia and tendon of lower back, initial encounter (principal); F17.210 Nicotine dependence, cigarettes, uncomplicated; F17.290 Nicotine dependence, other tobacco product, uncomplicated; E78.5 Hyperlipidemia, unspecified; I10 Essential (primary) hypertension; W01.0XXA Fall on same level from slipping, tripping and stumbling without subsequent striking against object, initial encounter
CPT/HCPCS: 96372; 99284; J1100; J1885; J2360

== ENCOUNTER 2023-04-24 21:15 | Emergency (ER) | payer MEDICAID, SELFPAY ==
[2023-04-24 21:19] VITALS: BP 197/108; PULSE 76; RESP 16; TEMP 36.6; O2SAT 99; BMI 39.9
--- NOTE | 2023-04-24 23:16 | W.ED.BACK ---
HPI - Back Pain/Injury General: Chief Complaint: Back Pain/Injury Stated Complaint: back pain, injury Time Seen by Provider: 04/24/23 23:12 History of Present Illness: 42-year-old female comes in today for complaints of back pain due to a fall and twist injury. Patient reports she was helping her daughter get into the house who had recently had knee surgery. Patient reports that they lost her balance causing her to twist and fall into the door frame. Patient reports some tenderness in the mid back. Patient appears nontoxic. Patient appears in no acute distress. Patient also reports that she has been without her oxycodone for 2 days and is waiting refill from her healthcare provider. Associated symptoms: Deny fever(s), nausea or vomiting Review of Systems General: Reports: 10 or more systems reviewed and unremarkable except in HPI and below Const: Denies: fever(s) Card: Denies: chest pain Resp: Denies: dyspnea GI: Denies: nausea or vomiting : Denies: difficulty voiding Musc: Reports: back pain PFSH ED PFSH: Medical History Chronic low back pain with sciatica Chronic narcotic use ~ 2yrs, for back pain Dyslipidemia borderline by report, not on treatment Encounter for long-term opiate analgesic use History of pulmonary embolism post op, had DVT Hypertension Obesity BMI 39 Opioid contract exists Rosacea Surgical History H/O laminectomy History of back surgery (~2017) History of carpal tunnel release left History of D&C History of hysterectomy due to life threatening bleeding while on anticoagulation for PE/DVT History of laparoscopic adjustable gastric banding History of right knee surgery (~2008) patellar realignment History of tonsillectomy Family History Father Cancer pancreatic cancer Other Diabetes Heart disease Hypertension Social History Smoking and tobacco/nicotine status: current every day tobacco/nicotine user cigarettes [ Other cigarette details: .5 pack per day] and e-cigarettes E-Cigarette Details: vaporizer device and without nicotine Alcohol intake: never Substance/Drug Use: never Lives independently: Yes Household members: spouse Current occupational status: disabled Female Reproductive History: Para: 3 Spontaneous abortions: No Physical Exam Const: COMMON NORMALS: alert HENMT: COMMON NORMALS: normocephalic HEAD & SCALP: normocephalic Neck/C-Spine: COMMON NORMALS: full ROM Resp: COMMON NORMALS: normal respiratory effort and clear to auscultation bilaterally AUSCULTATION: clear to auscultation bilaterally Cardio: COMMON NORMALS: regular rate and regular rhythm RATE: regular rate RHYTHM: regular rhythm GI: COMMON NORMALS: non-tender Back/Pelvis: LUMBAR SPINE/LOWER BACK: Yes lumbar ROM normal and Yes paraspinal muscle tenderness Lumbar paraspinal muscle tenderness: left left lumbar paraspinal muscle tenderness: L1 and L2 Extremity: COMMON NORMALS: normal to inspection Neuro: SENSORIUM/ORIENTATION: Yes alert Skin: COMMON NORMALS: turgor normal GENERAL SKIN EXAM: turgor normal Course Vital Signs: Vital signs: Vital Signs Temperature 97.9 F 04/24/23 21:19 Pulse Rate 76 04/24/23 21:19 Respiratory Rate 16 04/24/23 21:19 Blood Pressure 197/108 04/24/23 21:19 Pulse Oximetry 99 04/24/23 21:19 MDM - Back Pain/Injury Medical Decision Making Patient comes in today for exacerbation of back pain after injury while trying to help her daughter into the house due to her recent knee surgery. On exam patient has some muscle tenderness in the left and right lower paraspinous muscles. No central lumbar spinal tenderness is noted. Differential diagnosis includes but not limited to intervertebral disc disease, muscle strain, fracture, displaced spinal hardware. X-ray of the back noted no fracture or abnormality in spinal hardware. Patient was given a 1 mg injection of Dilaudid for her pain and was recommended to follow-up with primary care for further instructions and evaluation and refills of medication. XR interpretation done by ED provider, pending radiology final review Discharge Plan Discharge Patient Disposition: Home Clinical Impression: Acute lumbosacral myofascial strain Qualifiers: Encounter type: initial encounter Qualified Code(s): S39.012A - Strain of muscle, fascia and tendon of lower back, initial encounter Condition: Stable Prescriptions: No Action amoxicillin-pot clavulanate 875-125 mg tablet 1 tab PO BID Qty: 20 0RF diazepam [Valium] 5 mg tablet 5 mg PO TID PRN (Reason: muscle spasm) 7 Days Qty: 21 0RF albuterol sulfate [Ventolin HFA] 90 mcg/actuation HFA aerosol inhaler 2 puff inhalation Q6H PRN (Reason: shortness of breath or wheezing) Qty: 8.5 0RF lisinopril-hydrochlorothiazide 20-25 mg tablet 1 tab PO DAILY Qty: 90 2RF escitalopram oxalate 20 mg tablet 20 mg PO DAILY Qty: 30 5RF bupropion HCl 300 mg tablet extended release 24 hr 300 mg PO QAM Qty: 30 5RF Linzess 72 mcg capsule 72 mcg PO DAILY PRN oxycodone-acetaminophen [Percocet] 10-325 mg tablet 1 tab PO Q4H PRN (Reason: Pain) orphenadrine citrate 100 mg tablet extended release 100 mg PO BID PRN (Reason: pain) Qty: 20 0RF ondansetron 4 mg tablet,disintegrating 4 mg PO Q8H PRN (Reason: nausea and vomiting) Qty: 15 0RF Discharge Orders: Discharge ED (Routine); Ordered 04/25/23 Ordered By: Delfino Silva Referrals: Sb Le DO [Primary Care Provider] - Discharge Diet: Usual diet Discharge Activity: Increase activity as tolerated Activity Restrictions/Additional Instructions: Activity as tolerated. For back pain is very important to try to maintain your normal activity is much as possible. Use ice or heat to help with pain. Follow-up with primary care or specialist regarding medications and need for refills. Return to ED for new concerns or worsening symptoms. Coding Level of Care Code ED Fire Extinguisher Technician for Zabrina Burgess
--- NOTE | 2023-04-24 23:22 | XRR_ITS ---
PROCEDURE INFORMATION: Exam: XR Lumbosacral Spine Exam date and time: 04/25/2023 12:14 AM Age: 42 years old Clinical indication: Pain and injury or trauma; Other: Ran into door; Low back pain; Prior surgery; Surgery date: 6+ months; Surgery type: August 2022 fusion TECHNIQUE: Imaging protocol: Radiologic exam of the lumbosacral spine. Views: 2 or 3 views. COMPARISON: CR XR lumbar spine 2-3V* [id number] 03/21/2023 2:53 PM FINDINGS: Bones/joints: Surgical hardware in the lumbar spine, similar to prior exam. Multilevel lower thoracic and upper lumbar spine moderate to severe disc space narrowing, most significant at L1-L2, somewhat increased compared to prior exam. Soft tissues: Unremarkable. XR/XR lumbar spine 2-3V* [id number] IMPRESSION: 1. Surgical hardware in the lumbar spine, similar to prior exam. 2. Multilevel lower thoracic and upper lumbar spine moderate to severe disc space narrowing, most significant at L1-L2, somewhat increased compared to prior exam.
[2023-04-24] MEDS: HYDROmorphone 1 mg/mL INJ 1 mL IM (23:43)
[2023-04-25 00:37] VITALS: BP 197/108; PULSE 76; RESP 16; TEMP 36.6; O2SAT 99
== END 2023-04-25 00:38 | disposition home or self-care (01) ==
PROVIDERS: Emergency Provider Nurse Practitioner Family; PCP Family Medicine
DX: S39.012A Strain of muscle, fascia and tendon of lower back, initial encounter (principal); F17.210 Nicotine dependence, cigarettes, uncomplicated; F17.290 Nicotine dependence, other tobacco product, uncomplicated; E78.5 Hyperlipidemia, unspecified; I10 Essential (primary) hypertension; X50.1XXA Overexertion from prolonged static or awkward postures, initial encounter
CPT/HCPCS: 72100; 96372; 99284; J1170

== ENCOUNTER 2023-05-22 14:52 | Emergency (ER) | payer MEDICAID, SELFPAY ==
[2023-05-22 15:13] VITALS: BP 178/105; PULSE 72; RESP 16; TEMP 37.1; O2SAT 99; BMI 43.2
[2023-05-22 15:32] VITALS: RESP 25; O2SAT 98
[2023-05-22] MEDS: morphine 4 mg/mL SDV 1 mL IM (15:32)
[2023-05-22] MEDS: dexamethasone 10 mg/mL INJ IM (15:32)
--- NOTE | 2023-05-22 15:33 | ED_ITS ---
HPI - Back Pain/Injury General: Chief Complaint: Back Pain/Injury Stated Complaint: back pains, n,v Time Seen by Provider: 05/22/23 15:20 Source: patient Mode of arrival: ambulatory Limitations: no limitations History of Present Illness: 43-year-old female who has a history of chronic back pain she had surgery 8 months ago on her back states she is continue to have pain she is in pain management as well. She states she is scheduled to see her spine surgeon Dr. Cruz next month due to this ongoing pain states that today the pain is worsened and she needs relief it is in her right lower back. Denies any injuries denies any bowel or bladder incontinence denies any difficulty walking. Associated symptoms: Deny abdominal pain, chills, fever(s), nausea or vomiting Review of Systems Const: Denies: fever(s), chills, body aches or change in appetite ENMT: Denies: throat pain or dental pain Card: Denies: chest pain Resp: Denies: dyspnea GI: Denies: abdominal pain, nausea, vomiting or diarrhea Musc: Reports: back pain; Denies: neck pain Skin/Breast: Denies: rash Neuro: Denies: headache(s) PFSH ED PFSH: Medical History Opioid contract exists Encounter for long-term opiate analgesic use Chronic low back pain with sciatica Rosacea History of pulmonary embolism post op, had DVT Dyslipidemia borderline by report, not on treatment Hypertension Chronic narcotic use ~ 2yrs, for back pain Obesity BMI 39 Surgical History H/O laminectomy History of carpal tunnel release left History of D&C History of hysterectomy due to life threatening bleeding while on anticoagulation for PE/DVT History of laparoscopic adjustable gastric banding History of tonsillectomy History of back surgery (~2018) History of right knee surgery (~2008) patellar realignment Family History Father Cancer pancreatic cancer Other Diabetes Heart disease Hypertension Social History Smoking and tobacco/nicotine status: current every day tobacco/nicotine user cigarettes [ Other cigarette details: .5 pack per day] and e-cigarettes E- Cigarette Details: vaporizer device and without nicotine Alcohol intake: never Substance/Drug Use: never Lives independently: Yes Household members: spouse Current occupational status: disabled Female Reproductive History: Para: 3 Spontaneous abortions: No Physical Exam Const: COMMON NORMALS: no acute distress, patient oriented x3 and healthy appearing HENMT: COMMON NORMALS: normocephalic and atraumatic HEAD & SCALP: normocephalic and atraumatic Neck/C-Spine: COMMON NORMALS: full ROM and supple Chest: COMMONS NORMALS: normal inspection of the chest Resp: COMMON NORMALS: normal respiratory effort Cardio: COMMON NORMALS: regular rate, regular rhythm and No murmurs present (Cardio) RATE: regular rate RHYTHM: regular rhythm GI: INSPECTION: Yes normal to inspection Back/Pelvis: OTHER: Tenderness over right lower back no midline tenderness no saddle anesthesia no bowel or bladder incontinence Extremity: COMMON NORMALS: normal to inspection and full ROM Neuro: COMMON NORMALS: patient oriented x3, moves all extremities and no focal motor deficits Psych: COMMON NORMALS: mental status grossly normal, Normal thought process present and cooperative THOUGHT PROCESS: Normal thought process present Skin: COMMON NORMALS: no rashes or lesions noted and no wounds GENERAL SKIN EXAM: no rashes or lesions noted Course Vital Signs: Vital signs: Vital Signs Temperature 98.8 F 05/22/23 15:13 Pulse Rate 72 05/22/23 15:13 Respiratory Rate 25 H 05/22/23 15:32 Blood Pressure 178/105 05/22/23 15:13 Pulse Oximetry 97 05/22/23 15:40 Oxygen Delivery Me thod Room Air 05/22/23 15:40 MDM - Back Pain/Injury Medical Decision Making Patient presents with back pain is chronic in nature pains improved here after IM meds she is to follow-up with her apprentice painter hand along with her surgeon Dr. Cruz she has no signs of cord compression or epidural abscess she is return if worsening. Medical Records I reviewed the patient's medical records. No radiology studies performed this visit Discharge Plan Discharge Patient Disposition: Home Clinical Impression: Chronic low back pain with sciatica Qualifiers: Back pain laterality: bilateral Sciatica laterality: bilateral sciatica Qualified Code(s): M54.42 - Lumbago with sciatica, left side Condition: Stable Prescriptions: No Action amoxicillin-pot clavulanate 875-125 mg tablet 1 tab PO BID Qty: 20 0RF diazepam [Valium] 5 mg tablet 5 mg PO TID PRN (Reason: muscle spasm) 7 Days Qty: 21 0RF albuterol sulfate [Ventolin HFA] 90 mcg/actuation HFA aerosol inhaler 2 puff inhalation Q6H PRN (Reason: shortness of breath or wheezing) Qty: 8.5 0RF lisinopril-hydrochlorothiazide 20-25 mg tablet 1 tab PO DAILY Qty: 90 2RF escitalopram oxalate 20 mg tablet 20 mg PO DAILY Qty: 30 5RF bupropion HCl 300 mg tablet extended release 24 hr 300 mg PO QAM Qty: 30 5RF Linzess 72 mcg capsule 72 mcg PO DAILY PRN oxycodone-acetaminophen [Percocet] 10-325 mg tablet 1 tab PO Q4H PRN (Reason: Pain) orphenadrine citrate 100 mg tablet extended release 100 mg PO BID PRN (Reason: pain) Qty: 20 0RF ondansetron 4 mg tablet,disintegrating 4 mg PO Q8H PRN (Reason: nausea and vomiting) Qty: 15 0RF Discharge Orders: Discharge ED (Routine); Ordered 05/22/23 Ordered By: Malinda Williamson Referrals: Sb Le DO [Primary Care Provider] - Discharge Diet: Advance as tolerated Discharge Activity: Resume usual activity Patient Instructions: Back Pain (ED) Coding Level of Care Code ED Space Control Supervisor for Zabrina Burgess
[2023-05-22 15:40] VITALS: O2SAT 97
[2023-05-22] MEDS: ketorolac 10 mg Tablet PO (16:20)
[2023-05-22 16:53] VITALS: BP 152/59; PULSE 64; O2SAT 97
== END 2023-05-22 16:53 | disposition home or self-care (01) ==
PROVIDERS: Emergency Provider Emergency Medicine; PCP Family Medicine
DX: M54.42 Lumbago with sciatica, left side (principal); F17.210 Nicotine dependence, cigarettes, uncomplicated; F17.290 Nicotine dependence, other tobacco product, uncomplicated; E78.5 Hyperlipidemia, unspecified; I10 Essential (primary) hypertension
CPT/HCPCS: 96372; 99284; J1100; J2270

== ENCOUNTER 2023-05-25 20:28 | Emergency (ER) | payer MEDICAID, SELFPAY ==
[2023-05-25 21:06] VITALS: BP 179/113; PULSE 71; RESP 18; TEMP 36.7; O2SAT 99
--- NOTE | 2023-05-25 21:42 | ED_ITS ---
HPI - Back Pain/Injury General: Chief Complaint: Back Pain/Injury Stated Complaint: back pain Time Seen by Provider: 05/25/23 21:01 History of Present Illness: 43-year-old female comes in today with b reakthrough back pain relating her chronic pain syndrome. Patient has had surgery on her back for repair and has had some improvement but often has breakthrough pain. She is working with Dr. Cruz to plan for possible stabilization of the SI joints for further pain relief. Patient is also awaiting follow-up appointment with her pain specialist on the third. Patient denies any falls or recent injury. Patient reports no fever or loss of bowel or bladder control. Review of Systems General: Reports: 10 or more systems reviewed and unremarkable except in HPI and below Musc: Reports: back pain PFSH ED PFSH: Medical History Opioid contract exists Encounter for long-term opiate analgesic use Chronic low back pain with sciatica Rosacea History of pulmonary embolism post op, had DVT Dyslipidemia borderline by report, not on treatment Hypertension Chronic narcotic use ~ 2yrs, for back pain Obesity BMI 39 Surgical History H/O laminectomy History of carpal tunnel release left History of D&C History of hysterectomy due to life threatening bleeding while on anticoagulation for PE/DVT History of laparoscopic adjustable gastric banding History of tonsillectomy History of back surgery (~2018) History of right knee surgery (~2008) patellar realignment Family History Father Cancer pancreatic cancer Other Diabetes Heart disease Hypertension Social History Smoking and tobacco/nicotine status: current every day tobacco/nicotine user cigarettes [ Other cigarette details: .5 pack per day] and e-cigarettes E- Cigarette Details: vaporizer device and without nicotine Alcohol intake: never Substance/Drug Use: never Lives independently: Yes Household members: spouse Current occupational status: disabled Female Reproductive History: Para: 3 Spontaneous abortions: No Physical Exam Const: COMMON NORMALS: alert HENMT: COMMON NORMALS: normocephalic HEAD & SCALP: normocephalic Neck/C-Spine: COMMON NORMALS: full ROM Resp: COMMON NORMALS: normal respiratory effort Cardio: COMMON NORMALS: regular rate RATE: regular rate Back/Pelvis: LUMBAR SPINE/LOWER BACK: No lumbar spinal tenderness and Yes paraspinal muscle tenderness OTHER: Patient has some tenderness along the right side of her surgical scars with some tight tissue suggesting may be scarring of the muscle layer, but no redness or induration of the skin is noted. Extremity: COMMON NORMALS: full ROM Neuro: SENSORIUM/ORIENTATION: Yes alert Skin: COMMON NORMALS: turgor normal GENERAL SKIN EXAM: turgor normal Course 2 Vital Signs: Vital signs: Vital Signs Temperature 98.1 F 05/25/23 21:06 Pulse Rate 71 05/25/23 21:06 Respiratory Rate 18 05/25/23 21:06 Blood Pressure 179/113 05/25/23 21:06 Pulse Oximetry 99 05/25/23 21:06 MDM - Back Pain/Injury Medical Decision Making 43-year-old female comes in today for complaints of mid to low back pain. Patient also complains of a area of tenderness running along the right side of her surgical incision that is tender. Evaluation of the site notes no redness or induration or warmth. There is some sclerosing of the tissue there which may be related to her surgical healing. Differential diagnosis includes not limited to malingering, exacerbation of chronic back pain, intervertebral disc disease, muscle strain. Patient was started on a course of steroids prednisone 20 mg twice a day for the next 7 days. In the emergency room she was given 1 mg hydromorphone IM and 10 mg dexamethasone. Patient was agreeable for this plan and will follow-up with her primary care, pain specialist, or sales administration specialist for further evaluation and treatment. No signs of severe illness or injury was noted on exam. No radiology studies performed this visit Discharge Plan Discharge Patient Disposition: Home Clinical Impression: Back pain Qualifiers: Back pain location: low back pain Chronicity: unspecified Back pain laterality: bilateral Sciatica presence: unspecified whether sciatica present Qualified Code(s): M54.50 - Low back pain, unspecified Condition: Stable Prescriptions: New prednisone 20 mg tablet 20 mg PO BID 7 Days Qty: 14 0RF No Action amoxicillin-pot clavulanate 875-125 mg tablet 1 tab PO BID Qty: 20 0RF diazepam [Valium] 5 mg tablet 5 mg PO TID PRN (Reason: muscle spasm) 7 Days Qty: 21 0RF albuterol sulfate [Ventolin HFA] 90 mcg/actuation HFA aerosol inhaler 2 puff inhalation Q6H PRN (Reason: shortness of breath or wheezing) Qty: 8.5 0RF lisinopril-hydrochlorothiazide 20-25 mg tablet 1 tab PO DAILY Qty: 90 2RF escitalopram oxalate 20 mg tablet 20 mg PO DAILY Qty: 30 5RF bupropion HCl 300 mg tablet extended release 24 hr 300 mg PO QAM Qty: 30 5RF Linzess 72 mcg capsule 72 mcg PO DAILY PRN oxycodone-acetaminophen [Percocet] 10-325 mg tablet 1 tab PO Q4H PRN (Reason: Pain) orphenadrine citrate 100 mg tablet extended release 100 mg PO BID PRN (Reason: pain) Qty: 20 0RF ondansetron 4 mg tablet,disintegrating 4 mg PO Q8H PRN (Reason: nausea and vomiting) Qty: 15 0RF Discharge Orders: Discharge ED (Routine); Ordered 05/25/23 Ordered By: Delfino Silva Referrals: Sb Le DO [Primary Care Provider] - Discharge Diet: Usual diet Discharge Activity: Increase activity as tolerated Patient Instructions: Opioid Safety, Pain Management Activity Restrictions/Additional Instructions: Take prednisone 20 mg twice a day for the next 7 days. Use ice or heat for further pain relief. Drink plenty of water with medications. Follow-up with pain specialist or primary care for further instruction. Return to ED for new concerns. Coding Level of Care Code ED Deaf/Hard Of Hearing Specialist for Zabrina Burgess
[2023-05-25 21:59] VITALS: RESP 20
[2023-05-25] MEDS: dexamethasone 10 mg/mL INJ IM (21:59)
[2023-05-25] MEDS: HYDROmorphone 1 mg/mL INJ 1 mL IM (21:59)
== END 2023-05-25 22:08 | disposition home or self-care (01) ==
PROVIDERS: Emergency Provider Nurse Practitioner Family; PCP Family Medicine
DX: M54.50 Low back pain, unspecified (principal); F17.210 Nicotine dependence, cigarettes, uncomplicated; F17.290 Nicotine dependence, other tobacco product, uncomplicated; E78.5 Hyperlipidemia, unspecified; I10 Essential (primary) hypertension
CPT/HCPCS: 96372; 99284; J1100; J1170

== ENCOUNTER 2023-06-01 21:10 | Emergency (ER) | payer MEDICAID, SELFPAY ==
[2023-06-01 21:12] VITALS: BP 178/130; PULSE 88; RESP 18; TEMP 36.8; O2SAT 97
--- NOTE | 2023-06-01 22:44 | ED_ITS ---
HPI - Back Pain/Injury General: Chief Complaint: Back Pain/Injury Stated Complaint: back, cant bend. back locked Time Seen by Provider: 06/01/23 21:44 History of Present Illness: 43-year-old female with a history of chr onic back pain. She had a fusion 8 months ago, and had done decently well following. She now complains of pain that is lower, along her lowest portion of her low back and SI joints. She has an appointment with her spine surgeon in 3 days, due to recent increase in pain. She notes that she had pain yesterday, but today her pain has not been controlled with home pain medication which is essentially Percocet at this point. She is in tears. She notes that she has been in bed most of the day because of pain. Pain is not radicular. It is localized to the low back. No red flag symptoms such as loss of bowel or bladder function, or saddle anesthesia. No fever. Associated symptoms: Reports nausea; Deny abdominal pain, chills, dysuria, fever(s) or vomiting Review of Systems Const: Denies: fever(s) or chills ENMT: Denies: throat pain Card: Denies: chest pain Resp: Denies: dyspnea GI: Reports: nausea; Denies: abdominal pain or vomiting : Denies: difficulty voiding or dysuria Musc: Reports: back pain; Denies: neck pain Skin/Breast: Denies: rash PFSH ED PFSH: Medical History Opioid contract exists Encounter for long-term opiate analgesic use Chronic low back pain with sciatica Rosacea History of pulmonary embolism post op, had DVT Dyslipidemia borderline by report, not on treatment Hypertension Chronic narcotic use ~ 2yrs, for back pain Obesity BMI 39 Surgical History H/O laminectomy History of carpal tunnel release left History of D&C History of hysterectomy due to life threatening bleeding while on anticoagulation for PE/DVT History of laparoscopic adjustable gastric banding History of tonsillectomy History of back surgery (~2018) History of right knee surgery (~2008) patellar realignment Family History Father Cancer pancreatic cancer Other Diabetes Heart disease Hypertension Social History Smoking and tobacco/nicotine status: current every day tobacco/nicotine user cigarettes [ Other cigarette details: .5 pack per day] and e-cigarettes E- Cigarette Details: vaporizer device and without nicotine Alcohol intake: never Substance/Drug Use: never Lives independently: Yes Household members: spouse Current occupational status: disabled Female Reproductive History: Para: 3 Spontaneous abortions: No Physical Exam Const: GENERAL APPEARANCE: cooperative, in distress (in pain) and anxious; not ill appearing and not frail appearing HENMT: COMMON NORMALS: normocephalic, atraumatic and Normal external nose present HEAD & SCALP: normocephalic and atraumatic FACE & SINUS: normal facial exam and face symmetric NOSE: Normal external nose present Eye: COMMON NORMALS: Equal, round and reactive pupils present and EOMs intact bilaterally PUPIL: Yes Equal, round and reactive pupils present Neck/C-Spine: GENERAL: Yes trachea midline Chest: CHEST: Yes Symmetrical chest wall rise Resp: COMMON NORMALS: normal respiratory effort, No retractions, No use of accessory muscles and clear to auscultation bilaterally AUSCULTATION: clear to auscultation bilaterally Cardio: COMMON NORMALS: regular rate and regular rhythm RATE: regular rate RHYTHM: regular rhythm GI: COMMON NORMALS: Normal to inspection, nondistended, normoactive bowel sounds present Back/Pelvis: OTHER: Examination lumbar spine reveals tenderness over the L5-S1 junction. There are some SI joint tenderness. There is tenderness along the quadratus lumborum musculature bilaterally, right greater than left. No radicular pain. Extremity: COMMON NORMALS: no pedal edema Neuro: CRISTEL COMA SCALE: document GCS findings Cristel coma scale eye opening: Spontaneous Cristel coma scale verbal response: Orientated Cristel coma scale motor response: Obey commands [place] coma scale total score: 15 SENSORY EXAM: Yes extremities (intact) Psych: COMMON NORMALS: speech normal SPEECH: Yes normal speech Skin: COMMON NORMALS: no rashes or lesions noted GENERAL SKIN EXAM: no rashes or lesions noted Course Vital Signs: Vital signs: Vital Signs Temperature 98.2 F 06/01/23 21:12 Pulse Rate 88 06/01/23 21:12 Respiratory Rate 18 06/01/23 21:12 Blood Pressure 178/130 06/01/23 21:12 Pulse Oximetry 97 06/01/23 21:12 MDM - Back Pain/Injury Medical Decision Making Imaging is not deemed necessary at this point. This is patient's third visit for ongoing back pain in the last month or so. She was placed on steroids at 1 point, and noticed improvement for a couple of days. She is given injections here with IM medication and is feeling improved. Will place her on a Duragesic patch that can help her baseline pain until she sees her orthopedic spine surgeon. Home Percocet can be used for breakthrough pain on top of this. She is otherwise stable for discharge. No radiology studies performed this visit Discharge Plan Discharge Patient Disposition: Home Clinical Impression: Status post lumbar spinal fusion, Chronic low back pain Condition: Stable Prescriptions: No Action amoxicillin-pot clavulanate 875-125 mg tablet 1 tab PO BID Qty: 20 0RF diazepam [Valium] 5 mg tablet 5 mg PO TID PRN (Reason: muscle spasm) 7 Days Qty: 21 0RF albuterol sulfate [Ventolin HFA] 90 mcg/actuation HFA aerosol inhaler 2 puff inhalation Q6H PRN (Reason: shortness of breath or wheezing) Qty: 8.5 0RF lisinopril-hydrochlorothiazide 20-25 mg tablet 1 tab PO DAILY Qty: 90 2RF escitalopram oxalate 20 mg tablet 20 mg PO DAILY Qty: 30 5RF bupropion HCl 300 mg tablet extended release 24 hr 300 mg PO QAM Qty: 30 5RF Linzess 72 mcg capsule 72 mcg PO DAILY PRN oxycodone-acetaminophen [Percocet] 10-325 mg tablet 1 tab PO Q4H PRN (Reason: Pain) orphenadrine citrate 100 mg tablet extended release 100 mg PO BID PRN (Reason: pain) Qty: 20 0RF ondansetron 4 mg tablet,disintegrating 4 mg PO Q8H PRN (Reason: nausea and vomiting) Qty: 15 0RF Discharge Orders: Discharge ED (Routine); Ordered 06/01/23 Ordered By: Rio Crow Referrals: Sb Le DO [Primary Care Provider] - Patient Instructions: Back Pain (ED), Opioid Safety, Pain Management Activity Restrictions/Additional Instructions: Use the patch placed on your skin tonight for baseline pain control for the next 3 days. You may take your home pain medication for breakthrough pain, but do not do so until you are sure how the pain patch will affect you. Return for fever, other new or concerning symptoms. Coding Level of Care Code ED Digital Media Manager for Zabrina Burgess
[2023-06-01 23:20] VITALS: RESP 18
[2023-06-01] MEDS: dexamethasone 10 mg/mL INJ IM (23:20)
[2023-06-01] MEDS: orphenadrine 30 mg/mL Inj 2 mL 60 MG IM (23:20)
[2023-06-01] MEDS: HYDROmorphone 1 mg/mL INJ 1 mL 2 MG IM (23:20)
--- NOTE | 2023-06-01 23:27 | PC.NURSE ---
Patient sent home with 1 4-mg dilaudid tablet. Tablet was divided in half, and placed in bag with patient label on it-- was witnessed by Joseline Vickers RN. Medication was sent home with patient with instructions to take 1-half tablet (a 2mg dose) every 6 hours as needed for severe pain. Patient educated to not take pain meds any more frequent than that, and patient verbalized understanding to education given. Pt left with paperwork and pain pills, labeled in bag.
== END 2023-06-01 23:33 | disposition home or self-care (01) ==
PROVIDERS: Emergency Provider Emergency Medicine; PCP Family Medicine
DX: G89.29 Other chronic pain (principal); M54.50 Low back pain, unspecified; Z98.890 Other specified postprocedural states; F17.290 Nicotine dependence, other tobacco product, uncomplicated; F17.210 Nicotine dependence, cigarettes, uncomplicated; I10 Essential (primary) hypertension; E78.5 Hyperlipidemia, unspecified
CPT/HCPCS: 96372; 99284; J1100; J1170; J2360

== ENCOUNTER → 2023-06-04 07:53 | Outpatient (BNVA) | payer MEDICAID, SELFPAY | PROVIDERS: PCP Family Medicine; Visit Provider Orthopaedic Surgery | DX: Z47.89 Encounter for other orthopedic aftercare (principal); Z98.1 Arthrodesis status; M53.3 Sacrococcygeal disorders, not elsewhere classified; G89.29 Other chronic pain | CPT/HCPCS: 72100; 99213 ==

== ENCOUNTER 2023-06-11 17:42 | Emergency (ER) | payer MEDICAID, SELFPAY ==
[2023-06-11 18:00] VITALS: BP 186/103; PULSE 67; RESP 16; TEMP 36.7; O2SAT 100; BMI 41.5
--- NOTE | 2023-06-11 19:45 | ED_ITS ---
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 Associated symptoms: Deny abdominal pain, chills, fever(s), nausea or vomiting Review of Systems Const: Denies: fever(s), chills, body aches or change in appetite ENMT: Denies: throat pain or dental pain Card: Denies: chest pain Resp: Denies: dyspnea GI: Denies: abdominal pain, nausea, vomiting or diarrhea Musc: Reports: back pain; Denies: neck pain Skin/Breast: Denies: rash Neuro: Denies: headache(s) PFSH ED PFSH: Medical History (Updated 06/11/23 @ 19:47 by Malinda Williamson MD) Acute viral syndrome Opioid contract exists Encounter for long-term opiate analgesic use Chronic low back pain with sciatica Rosacea History of pulmonary embolism post op, had DVT Dyslipidemia borderline by report, not on treatment Hypertension Chronic narcotic use ~ 2yrs, for back pain Obesity BMI 39 Surgical History H/O laminectomy History of carpal tunnel release left History of D&C History of hysterectomy due to life threatening bleeding while on anticoagulation for PE/DVT History of laparoscopic adjustable gastric banding History of tonsillectomy History of back surgery (~2018) History of right knee surgery (~2008) patellar realignment Family History Father Cancer pancreatic cancer Other Diabetes Heart disease Hypertension Social History Smoking and tobacco/nicotine status: current every day tobacco/nicotine user cigarettes [ Other cigarette details: .5 pack per day] and e-cigarettes E- Cigarette Details: vaporizer device and without nicotine Alcohol intake: never Substance/Drug Use: never Lives independently: Yes Household members: spouse Current occupational status: disabled Female Reproductive History: Para: 3 Spontaneous abortions: No Physical Exam Const: COMMON NORMALS: no acute distress, patient oriented x3 and healthy appearing HENMT: COMMON NORMALS: normocephalic and atraumatic HEAD & SCALP: normocephalic and atraumatic Neck/C-Spine: COMMON NORMALS: full ROM and supple Chest: COMMONS NORMALS: normal inspection of the chest Resp: COMMON NORMALS: normal respiratory effort Cardio: COMMON NORMALS: regular rate, regular rhythm and No murmurs present (Cardio) RATE: regular rate RHYTHM: regular rhythm Back/Pelvis: OTHER: Paraspinal tenderness to low back no midline tenderness Extremity: COMMON NORMALS: normal to inspection and full ROM Neuro: COMMON NORMALS: patient oriented x3, moves all extremities and no focal motor deficits Psych: COMMON NORMALS: mental status grossly normal, Normal thought process present and cooperative THOUGHT PROCESS: Normal thought process present Skin: COMMON NORMALS: no rashes or lesions noted and no wounds GENERAL SKIN EXAM: no rashes or lesions noted Course Vital Signs: Vital signs: Vital Signs Temperature 98.0 F 06/11/23 18:00 Pulse Rate 67 06/11/23 18:00 Respiratory Rate 16 06/11/23 18:00 Blood Pressure 186/103 06/11/23 18:00 Pulse Oximetry 100 06/11/23 18:00 Oxygen Delivery Me thod Room Air 06/11/23 18:00 MDM - Back Pain/Injury Medical Decision Making Patient presents here with a low back strain patient given Toradol and Robaxin here will prescribe Naprosyn and Robaxin she is stable for discharge she is follow-up with PCP and return if worsening. Medical Records I reviewed the patient's medical records. No radiology studies performed this visit Discharge Plan Discharge Patient Disposition: Home Clinical Impression: Lumbar strain Qualifiers: Encounter type: initial encounter Qualified Code(s): S39.012A - Strain of muscle, fascia and tendon of lower back, initial encounter Condition: Stable Prescriptions: New methocarbamol 750 mg tablet 750 mg PO Q6H PRN (Reason: spasms) Qty: 20 0RF Naprosyn 500 mg tablet 500 mg PO BID PRN (Reason: pain) Qty: 20 0RF No Action lisinopril-hydrochlorothiazide 20-25 mg tablet 1 tab PO DAILY Qty: 90 2RF escitalopram oxalate 20 mg tablet 20 mg PO DAILY Qty: 30 5RF bupropion HCl 300 mg tablet extended release 24 hr 300 mg PO QAM Qty: 30 5RF Linzess 72 mcg capsule 72 mcg PO DAILY PRN orphenadrine citrate 100 mg tablet extended release 100 mg PO BID PRN (Reason: pain) Qty: 20 0RF ondansetron 4 mg tablet,disintegrating 4 mg PO Q8H PRN (Reason: nausea and vomiting) Qty: 15 0RF Discharge Orders: Discharge ED (Routine); Ordered 06/11/23 Ordered By: Malinda Williamson Referrals: Sb Le DO [Primary Care Provider] - Discharge Diet: Advance as tolerated Discharge Activity: Resume usual activity Patient Instructions: Low Back Strain (ED) Coding Level of Care Code ED Brake Engineer for Zabrina Burgess
[2023-06-11] MEDS: methocarbamol 750 mg Tablet 1500 MG PO (19:49)
[2023-06-11] MEDS: ketorolac 30 mg/mL INJ IM (19:50)
[2023-06-11 20:37] VITALS: PULSE 50; RESP 18; O2SAT 99
== END 2023-06-11 20:38 | disposition home or self-care (01) ==
PROVIDERS: Emergency Provider Emergency Medicine; PCP Family Medicine
DX: S39.012A Strain of muscle, fascia and tendon of lower back, initial encounter (principal); X50.0XXA Overexertion from strenuous movement or load, initial encounter; Y93.F2 Activity, caregiving, lifting
CPT/HCPCS: 96372; 99284; J1885

== ENCOUNTER 2023-06-16 16:26 | Emergency (ER) | payer MEDICAID, SELFPAY ==
[2023-06-16 16:30] VITALS: BP 156/91; PULSE 83; RESP 16; TEMP 36.7; O2SAT 95; BMI 41.5
--- NOTE | 2023-06-16 16:38 | ED_ITS ---
HPI - Back Pain/Injury General: Chief Complaint: Back Pain/Injury Stated Complaint: low back pain Time Seen by Provider: 06/16/23 16:38 History of Present Illness: 43-year-old female comes in today for co mplaints of back pain. Patient was seen approximately 4 to 5 days ago and was diagnosed with a stress fracture of the L1 vertebra. Patient had the CT scan done at [facility] in [place]. Patient appears nontoxic. Patient came in today for complaints of pain of her back. Review of Systems General: Reports: 10 or more systems reviewed and unremarkable except in HPI and below Musc: Reports: back pain PFS ED PFSH: Medical History (Updated 06/16/23 @ 17:35 by BLANQUITA Gross) Acute viral syndrome Opioid contract exists Encounter for long-term opiate analgesic use Chronic low back pain with sciatica Rosacea History of pulmonary embolism post op, had DVT Dyslipidemia borderline by report, not on treatment Hypertension Chronic narcotic use ~ 2yrs, for back pain Obesity BMI 39 Surgical History H/O laminectomy History of carpal tunnel release left History of D&C History of hysterectomy due to life threatening bleeding while on anticoagulation for PE/DVT History of laparoscopic adjustable gastric banding History of tonsillectomy History of back surgery (~2017) History of right knee surgery (~2008) patellar realignment Family History Father Cancer pancreatic cancer Other Diabetes Heart disease Hypertension Social History Smoking and tobacco/nicotine status: current every day tobacco/nicotine user cigarettes [ Other cigarette details: .5 pack per day] and e-cigarettes E- Cigarette Details: vaporizer device and without nicotine Alcohol intake: never Substance/Drug Use: never Lives independently: Yes Household members: spouse Current occupational status: disabled Female Reproductive History: Para: 3 Spontaneous abortions: No Physical Exam Const: COMMON NORMALS: alert HENMT: COMMON NORMALS: normocephalic HEAD & SCALP: normocephalic Neck/C-Spine: COMMON NORMALS: full ROM Resp: COMMON NORMALS: normal respiratory effort Cardio: COMMON NORMALS: regular rate RATE: regular rate Back/Pelvis: LUMBAR SPINE/LOWER BACK: Yes paraspinal muscle tenderness Extremity: COMMON NORMALS: full ROM and no pedal edema Neuro: SENSORIUM/ORIENTATION: Yes alert Skin: COMMON NORMALS: turgor normal GENERAL SKIN EXAM: turgor normal Course Vital Signs: Vital signs: Vital Signs Temperature 98.1 F 06/16/23 16:30 Pulse Rate 83 06/16/23 16:30 Respiratory Rate 16 06/16/23 16:30 Blood Pressure 156/91 06/16/23 16:30 Pulse Oximetry 95 06/16/23 16:30 Oxygen Delivery Me thod Room Air 06/16/23 16:30 MDM - Back Pain/Injury Medical Decision Making 43-year-old female comes in today for complaints of back pain. On exam patient moves all extremities well. No swelling is noted in the extremities. Patient has muscle tenderness to the lumbar spine. No step-off is noted along the spine. Reviewed CT scan from [facility] in [place] report. No acute fractures were noted along with no other significant abnormalities except degenerative changes and surgical changes. Differential diagnosis includes malingering, intervertebral disc disease, facet arthropathy, chronic back pain. Patient has chronic back pain. No acute abnormalities can be found. No cauda equina syndrome is noted. Reviewed exam with patient with recommendations for treatment and follow-up. Patient reported understanding and agreed to plan. No radiology studies performed this visit Discharge Plan Discharge Patient Disposition: Home Clinical Impression: Chronic low back pain with sciatica Qualifiers: Back pain laterality: bilateral Sciatica laterality: bilateral sciatica Qualified Code(s): M54.42 - Lumbago with sciatica, left side Condition: Stable Prescriptions: No Action lisinopril-hydrochlorothiazide 20-25 mg tablet 1 tab PO DAILY Qty: 90 2RF escitalopram oxalate 20 mg tablet 20 mg PO DAILY Qty: 30 5RF bupropion HCl 300 mg tablet extended release 24 hr 300 mg PO QAM Qty: 30 5RF Linzess 72 mcg capsule 72 mcg PO DAILY PRN orphenadrine citrate 100 mg tablet extended release 100 mg PO BID PRN (Reason: pain) Qty: 20 0RF methocarbamol 750 mg tablet 750 mg PO Q6H PRN (Reason: spasms) Qty: 20 0RF Naprosyn 500 mg tablet 500 mg PO BID PRN (Reason: pain) Qty: 20 0RF ondansetron 4 mg tablet,disintegrating 4 mg PO Q8H PRN (Reason: nausea and vomiting) Qty: 15 0RF Discharge Orders: Discharge ED (Routine); Ordered 06/16/23 Ordered By: Delfino Silva Referrals: Sb Le DO [Primary Care Provider] - Patient Instructions: Chronic Back Pain (DC) Activity Restrictions/Additional Instructions: Home and rest. Continue with routine care. Follow-up with primary care for further instructions. Return to ED for worsening symptoms such as high fever, loss of bowel or bladder control, or new concerns. Coding Level of Care Code ED Senior Materials Scientist for Zabrina Burgess
[2023-06-16] MEDS: orphenadrine 30 mg/mL Inj 2 mL 60 MG IM (17:03)
[2023-06-16] MEDS: ketorolac 30 mg/mL INJ IM (17:03)
== END 2023-06-16 18:19 | disposition home or self-care (01) ==
PROVIDERS: Emergency Provider Nurse Practitioner Family; PCP Family Medicine
DX: M54.42 Lumbago with sciatica, left side (principal)
CPT/HCPCS: 96372; 99284; J1885; J2360

== ENCOUNTER → 2023-07-05 14:36 | Outpatient (BNVA) | payer MEDICAID, SELFPAY | PROVIDERS: PCP Family Medicine; Referring Provider Family Medicine; Visit Provider Orthopaedic Surgery | DX: M54.16 Radiculopathy, lumbar region (principal); S32.019A Unspecified fracture of first lumbar vertebra, initial encounter for closed fracture; X58.XXXA Exposure to other specified factors, initial encounter | CPT/HCPCS: 72100; 99214 ==

== ENCOUNTER → 2023-07-10 09:47 | Outpatient (BNVA) | payer MEDICAID, SELFPAY | PROVIDERS: PCP Family Medicine; Visit Provider Anesthesiology Pain Medicine | DX: M54.16 Radiculopathy, lumbar region (principal); F11.90 Opioid use, unspecified, uncomplicated; S32.009A Unspecified fracture of unspecified lumbar vertebra, initial encounter for closed fracture; M53.3 Sacrococcygeal disorders, not elsewhere classified; X58.XXXA Exposure to other specified factors, initial encounter | CPT/HCPCS: 99204 ==

== ENCOUNTER 2023-07-10 13:29 | Emergency (ER) | payer MEDICAID, SELFPAY ==
[2023-07-10 13:35] VITALS: BP 198/98; PULSE 79; RESP 18; TEMP 36.5; O2SAT 99
--- NOTE | 2023-07-10 13:51 | ED_ITS ---
HPI - Back Pain/Injury General: Chief Complaint: Back Pain/Injury Stated Complaint: back pains Time Seen by Provider: 07/10/23 13:50 History of Present Illness: 43-year-old female comes in today with b reakthrough pain relating her chronic back pain. Patient was seen by pain management today and had an evaluation for treatment of her continued back pain after spinal fusion. Patient appears in moderate to severe pain. Patient appears nontoxic. Skin color is pink and warm and dry. Patient is tender to palpation of her right lower back paraspinous muscles. Patient denies any loss of bowel or bladder control. Patient is ambulatory. Review of Systems General: Reports: 10 or more systems reviewed and unremarkable except in HPI and below Musc: Reports: back pain PFSH ED PFSH: Medical History Acute viral syndrome Opioid contract exists Encounter for long-term opiate analgesic use Chronic low back pain with sciatica Rosacea History of pulmonary embolism post op, had DVT Dyslipidemia borderline by report, not on treatment Hypertension Chronic narcotic use ~ 2yrs, for back pain Obesity BMI 39 Surgical History H/O laminectomy History of carpal tunnel release left History of D&C History of hysterectomy due to life threatening bleeding while on anticoagulation for PE/DVT History of laparoscopic adjustable gastric banding History of tonsillectomy History of back surgery (~2018) History of right knee surgery (~2008) patellar realignment Family History Father Cancer pancreatic cancer Other Diabetes Heart disease Hypertension Social History Smoking and tobacco/nicotine status: current every day tobacco/nicotine user cigarettes [ Other cigarette details: .5 pack per day] and e-cigarettes E- Cigarette Details: vaporizer device and without nicotine Alcohol intake: never Substance/Drug Use: never Lives independently: Yes Household members: spouse Current occupational status: disabled Female Reproductive History: Para: 3 Spontaneous abortions: No Physical Exam Const: COMMON NORMALS: alert HENMT: COMMON NORMALS: normocephalic HEAD & SCALP: normocephalic Neck/C-Spine: COMMON NORMALS: full ROM Resp: COMMON NORMALS: normal respiratory effort and clear to auscultation bilaterally AUSCULTATION: clear to auscultation bilaterally Cardio: COMMON NORMALS: regular rate and regular rhythm RATE: regular rate RHYTHM: regular rhythm GI: COMMON NORMALS: Soft to palpation PALPATION: Yes Soft to palpation Back/Pelvis: LUMBAR SPINE/LOWER BACK: Yes paraspinal muscle tenderness Lumbar paraspinal muscle tenderness: right Extremity: COMMON NORMALS: normal to inspection and full ROM Neuro: SENSORIUM/ORIENTATION: Yes alert Skin: COMMON NORMALS: turgor normal GENERAL SKIN EXAM: turgor normal Course Vital Signs: Vital signs: Vital Signs Temperature 97.7 F 07/10/23 13:35 Pulse Rate 79 07/10/23 13:35 Respiratory Rate 18 07/10/23 13:35 Blood Pressure 198/98 07/10/23 13:35 Pulse Oximetry 99 07/10/23 13:35 Oxygen Delivery Me thod Room Air 07/10/23 13:35 MDM - Back Pain/Injury Medical Decision Making 43-year-old female comes in today with exacerbation of chronic low back pain. Patient has been more active recently due to the care of her mother and visiting the ski edge painter today. Patient reports maneuvers done in his office aggravated her pain she has come to the ER for control of breakthrough pain. Patient reports no loss of bowel or bladder control. No cauda equina syndrome is noted. Respirations are even lungs are clear to auscultation. Vital signs are normal except for some elevation in blood pressure. Differential diagnosis includes but not limited to intervertebral disc disease, facet arthropathy, malingering, uncontrolled chronic back pain. Patient was given 1 mg Dilaudid IM, 30 mg of ketorolac, and 10 mg dexamethasone. Patient endorses no recent steroid use. Hopefully will get control of inflammation to help improve her pain with NSAIDs and steroids. Patient was given an extra dose of hydromorphone to help with pain. Patient reported understanding of care plan need for follow-up or return to the ER. No radiology studies performed this visit Discharge Plan Discharge Patient Disposition: Home Clinical Impression: Chronic low back pain with sciatica Qualifiers: Back pain laterality: bilateral Sciatica laterality: bilateral sciatica Qualified Code(s): M54.42 - Lumbago with sciatica, left side Condition: Stable Prescriptions: No Action azithromycin [Zithromax] 500 mg tablet 500 mg PO DAILY 5 Days Qty: 5 0RF lisinopril-hydrochlorothiazide 20-25 mg tablet 1 tab PO DAILY Qty: 90 2RF escitalopram oxalate 20 mg tablet 20 mg PO DAILY Qty: 30 5RF bupropion HCl 300 mg tablet extended release 24 hr 300 mg PO QAM Qty: 30 5RF Linzess 72 mcg capsule 72 mcg PO DAILY PRN oxycodone-acetaminophen 10-325 mg tablet 1 tab PO Q6H PRN (Reason: pain) 30 Days Qty: 120 0RF orphenadrine citrate 100 mg tablet extended release 100 mg PO BID PRN (Reason: pain) Qty: 20 0RF methocarbamol 750 mg tablet 750 mg PO Q6H PRN (Reason: spasms) Qty: 20 0RF Naprosyn 500 mg tablet 500 mg PO BID PRN (Reason: pain) Qty: 20 0RF ondansetron 4 mg tablet,disintegrating 4 mg PO Q8H PRN (Reason: nausea and vomiting) Qty: 15 0RF Discharge Orders: Discharge ED (Routine); Ordered 07/10/23 Ordered By: Delfino Silva Referrals: Sb Le DO [Primary Care Provider] - Discharge Diet: Usual diet Discharge Activity: Increase activity as tolerated Patient Instructions: Opioid Safety, Pain Management Activity Restrictions/Additional Instructions: Home and rest. Activity as tolerated. Continue with routine medications as directed. Follow-up with Dr. Parker for any changes with medications. Return to ED for new concerns. Coding Level of Care Code ED Utility Clerk for Zabrina Burgess
[2023-07-10 14:08] VITALS: RESP 19; O2SAT 96
[2023-07-10] MEDS: dexamethasone 10 mg/mL INJ IM (14:08)
[2023-07-10] MEDS: HYDROmorphone 1 mg/mL INJ 1 mL IM (14:08)
[2023-07-10] MEDS: ketorolac 30 mg/mL INJ IM (14:09)
[2023-07-10 14:14] VITALS: BP 162/97; PULSE 68; O2SAT 97
== END 2023-07-10 14:15 | disposition home or self-care (01) ==
PROVIDERS: Emergency Provider Nurse Practitioner Family; PCP Family Medicine
DX: M54.42 Lumbago with sciatica, left side (principal); G89.29 Other chronic pain; F17.210 Nicotine dependence, cigarettes, uncomplicated; F17.290 Nicotine dependence, other tobacco product, uncomplicated; E78.5 Hyperlipidemia, unspecified; I10 Essential (primary) hypertension
CPT/HCPCS: 96372; 99284; J1100; J1170; J1885

== ENCOUNTER 2023-07-15 08:17 | Emergency (ER) | payer MEDICAID, SELFPAY ==
[2023-07-15 08:33] VITALS: BP 180/141; PULSE 72; TEMP 36.8; O2SAT 100; BMI 40.9
--- NOTE | 2023-07-15 09:51 | W.ED.BACK ---
HPI - Back Pain/Injury General: Chief Complaint: Back Pain/Injury Stated Complaint: hip and leg pain Time Seen by Provider: 07/15/23 08:49 Source: patient Mode of arrival: ambulatory Limitations: no limitations History of Present Illness: Patient is a 43-year-old female with longstanding history of lower back pain here for complaints of acute on chronic low back pain. Patient states she has been seen by her back surgeon Dr. Cruz recently for this. She has been referred to pain management with Dr. Fields. She actually has an appointment with Dr. Fields scheduled for tomorrow to start sacroiliac injections. Patient chronically takes oxycodone for her back pain. This is currently being prescribed by her PCP Dr. Le. She is in the process of trying to get an appointment with a new pain management provider in [place]. She states she is out of her oxycodone a few days early as she has been having to take more than usual secondary to this back pain. She has had no new injury or trauma. No cauda equina symptoms. MD elicited complaint: back pain Pertinent past history: prior back pain Onset (ago): day(s) Timing: constant Severity: severe Similar Symptoms Previously: Yes Location: lumbar spine, right lower back and left lower back Radiation: right upper leg and right leg below the knee Exacerbating factors: movement, walking and lifting Relieving factors: none Associated symptoms: Reports difficulty walking (secondary to pain in back); Deny abdominal pain, chills, dysuria, fatigue, fever(s) or hematuria Work related injury: No Review of Systems Const: Denies: fever(s), chills, body aches, fatigue or malaise Card: Denies: chest pain Resp: Denies: dyspnea GI: Denies: abdominal pain : Denies: flank pain, dysuria or hematuria Musc: Reports: back pain; Denies: neck pain, extremity pain, extremity swelling, joint pain or joint swelling Skin/Breast: Denies: rash Neuro: Reports: difficulty walking (secondary to pain in back); Denies: headache(s), numbness in extremities, weakness in extremities or sensory changes PFSH ED PFSH: Medical History Acute viral syndrome Opioid contract exists Encounter for long-term opiate analgesic use Chronic low back pain with sciatica Rosacea History of pulmonary embolism post op, had DVT Dyslipidemia borderline by report, not on treatment Hypertension Chronic narcotic use ~ 2yrs, for back pain Obesity BMI 39 Surgical History H/O laminectomy History of carpal tunnel release left History of D&C History of hysterectomy due to life threatening bleeding while on anticoagulation for PE/DVT History of laparoscopic adjustable gastric banding History of tonsillectomy History of back surgery (~2017) History of right knee surgery (~2008) patellar realignment Family History Father Cancer pancreatic cancer Other Diabetes Heart disease Hypertension Social History Smoking and tobacco/nicotine status: current every day tobacco/nicotine user cigarettes [ Other cigarette details: .5 pack per day] and e-cigarettes E-Cigarette Details: vaporizer device and without nicotine Alcohol intake: never Substance/Drug Use: never Lives independently: Yes Household members: spouse Current occupational status: disabled Female Reproductive History: Para: 3 Spontaneous abortions: No Physical Exam Const: COMMON NORMALS: patient oriented x3, no limitations, alert and well nourished GENERAL APPEARANCE: cooperative and in distress (appears uncomfortable secondary to pain) NUTRITIONAL APPEARANCE: obese morbidly obese (BMI 40.9) ORIENTATION/CONSCIOUSNESS: Yes awake, Yes oriented to person, Yes oriented to place and Yes oriented to time GI: COMMON NORMALS: Normal to inspection, nondistended, normoactive bowel sounds present, Soft to palpation, non-tender and no masses PALPATION: Yes Soft to palpation : COMMON NORMALS: Yes no CVA tenderness BLADDER/KIDNEY EXAM: Yes no CVA tenderness Back/Pelvis: COMMON NORMALS: no CVA tenderness THORACIC SPINE/UPPER BACK: No thoracic spinal tenderness, No paraspinal muscle tenderness and No paraspinal muscle spasm LUMBAR SPINE/LOWER BACK: No lumbar spinal tenderness and Yes paraspinal muscle tenderness PELVIS: Yes buttocks normal and Yes sciatic notch tenderness bilateral SACROILIAC JOINTS: Yes SI joint(s) abnormal SI joint details: tender to palpation (bilateral R>L) SACRUM: no tenderness COCCYX: no tenderness Extremity: COMMON NORMALS: normal to inspection, full ROM, capillary refill normal, no joint enlargement, no clubbing, cyanosis or edema, no calf tenderness and no pedal edema GENERAL: Yes normal exam except as noted Neuro: COMMON NORMALS: patient oriented x3, moves all extremities, no focal motor deficits, no sensory deficits noted and gait normal SENSORIUM/ORIENTATION: Yes alert, Yes oriented to person, Yes oriented to place and Yes oriented to time MOTOR EXAM: 5/5 motor strength present throughout Course Vital Signs: Vital signs: Vital Signs Temperature 98.2 F 07/15/23 08:33 Pulse Rate 72 07/15/23 08:33 Blood Pressure 180/141 07/15/23 08:33 Pulse Oximetry 100 07/15/23 08:33 Oxygen Delivery Me thod Room Air 07/15/23 08:33 MDM - Back Pain/Injury Medical Decision Making Patient will be provided shots of pain medications here in the emergency department. Recommend follow-up with pain management provider Dr. Fields as scheduled tomorrow. She can reach out to her PCP in regards to refills regarding her Oxycodone but I will not be refilling this today. She has no red flag symptoms in regards to her chronic back pain on today's history or physical exam. Differential Diagnosis Likely lumbar radiculopathy, sciatica and strain of lumbar region Medical Records I reviewed the patient's medical records. No radiology studies performed this visit Discharge Plan Discharge Patient Disposition: Home Clinical Impression: Chronic bilateral low back pain Condition: Stable Prescriptions: No Action azithromycin [Zithromax] 500 mg tablet 500 mg PO DAILY 5 Days Qty: 5 0RF lisinopril-hydrochlorothiazide 20-25 mg tablet 1 tab PO DAILY Qty: 90 2RF escitalopram oxalate 20 mg tablet 20 mg PO DAILY Qty: 30 5RF bupropion HCl 300 mg tablet extended release 24 hr 300 mg PO QAM Qty: 30 5RF Linzess 72 mcg capsule 72 mcg PO DAILY PRN oxycodone-acetaminophen 10-325 mg tablet 1 tab PO Q6H PRN (Reason: pain) 30 Days Qty: 120 0RF orphenadrine citrate 100 mg tablet extended release 100 mg PO BID PRN (Reason: pain) Qty: 20 0RF methocarbamol 750 mg tablet 750 mg PO Q6H PRN (Reason: spasms) Qty: 20 0RF Naprosyn 500 mg tablet 500 mg PO BID PRN (Reason: pain) Qty: 20 0RF ondansetron 4 mg tablet,disintegrating 4 mg PO Q8H PRN (Reason: nausea and vomiting) Qty: 15 0RF Discharge Orders: Discharge ED (Routine); Ordered 07/15/23 Ordered By: Suzan Hoffman Referrals: Sb Le DO [Primary Care Provider] - Activity Restrictions/Additional Instructions: Please follow-up with Dr. Fields tomorrow as scheduled. Coding Level of Care Code ED Director Of Health Education for Zabrina Burgess
[2023-07-15] MEDS: ketorolac 60 mg/2 mL INJ IM (10:01)
[2023-07-15] MEDS: morphine 4 mg/mL SDV 1 mL IM (10:01)
[2023-07-15] MEDS: orphenadrine 30 mg/mL Inj 2 mL 60 MG IM (10:02)
== END 2023-07-15 10:34 | disposition home or self-care (01) ==
PROVIDERS: Emergency Provider Physician Assistant; PCP Family Medicine
DX: G89.29 Other chronic pain (principal); M54.50 Low back pain, unspecified; F17.210 Nicotine dependence, cigarettes, uncomplicated; F17.290 Nicotine dependence, other tobacco product, uncomplicated; E78.5 Hyperlipidemia, unspecified; I10 Essential (primary) hypertension
CPT/HCPCS: 96372; 99284; J1885; J2270; J2360

== ENCOUNTER → 2023-07-16 14:56 | Outpatient (BNVA) | payer MEDICAID, SELFPAY | PROVIDERS: PCP Family Medicine; Visit Provider Anesthesiology Pain Medicine | DX: M53.3 Sacrococcygeal disorders, not elsewhere classified (principal); M54.41 Lumbago with sciatica, right side; G89.29 Other chronic pain | CPT/HCPCS: 20610; 27096; 77002; J1030; J3490 ==

== ENCOUNTER → 2023-08-01 08:32 | Outpatient (BNVA) | payer MEDICAID, SELFPAY | PROVIDERS: PCP Family Medicine; Visit Provider Orthopaedic Surgery | DX: M54.41 Lumbago with sciatica, right side (principal); G89.29 Other chronic pain; Z98.1 Arthrodesis status | CPT/HCPCS: 36415; 80053; 81001; 85025; 99214 ==

== ENCOUNTER → 2023-08-15 09:51 | Outpatient (BNVA) | payer MEDICAID, SELFPAY | PROVIDERS: PCP Family Medicine; Visit Provider Family Medicine | DX: Z01.818 Encounter for other preprocedural examination (principal) | CPT/HCPCS: 81003; 87086 ==

== ENCOUNTER 2023-08-19 11:40 | Inpatient (IN) | payer MEDICAID, SELFPAY ==
[2023-08-19] VITALS (24 sets, daily range): BP systolic 144–195; BP diastolic 84–127; PULSE 69–110; RESP 15–20; TEMP 36.3–36.8; O2SAT 92–99
[2023-08-19] MEDS: sodium chloride 0.9% 1,000 ML 30 ML IV (08:57)
--- NOTE | 2023-08-19 09:29 | P.ANESASSM_ITS ---
Pre-Anesthetic Assessment Height/Weight: Height 1.57 m Weight 111.13 kg Temp Pulse Resp BP Pulse Ox O2 Del Method 97.5 F L 75 18 172/109 97 Room Air 08/19/23 08:56 08/19/23 08:56 08/19/23 08:56 08/19/23 08:56 08/19/23 08:56 08/19/23 08:56 Preop Diagnosis: Arthritis of sacroiliac joints Operation Date: 08/19/23 09:55 Proposed Procedures p Posterior Segmental Instrumentation(Not Applicable) - Chevy Cruz DO s Lumbopelvic Fixation(Not Applicable) - DO angie Leal Sacroiliac Joint Fusion(Bilateral) - Chevy Cruz DO Familial anesthetic complications: None Was Beta Hector taken within 24 hours: N/A Was Clonidine taken within 24 hours: N/A Last intake: Intake Last Liquid Date 08/18/23 Last Liquid Time 23:45 Last Solid Date 08/18/23 Last Solid Time 20:45 Social Tobacco (encouraged smoking cessation) and No alcohol Exam alert, oriented x 3, clear to auscultation bilaterally and regular rate & rhythm Airway Mallampati: Class III Dentition: chipped (Front tooth chipped) CV/HEM Deep Vein Thrombosis (w/ PE - 9 years ago after knee surgery) and Hypertension Metabolic Morbid Obesity Anesthetic Plan ASA status: 2 Anesthesia: General Risk of > 500 ml blood loss (7ml/kg in children): No Medications/Allergies Home Medications Medication Instructions Recorded Confirmed Last Taken Type bupropion HCl 300 mg 24 hr tablet, 300 mg PO QAM #30 tabs 11/13/22 08/19/23 08/18/23 Rx extended release escitalopram oxalate 20 mg tablet 20 mg PO DAILY #30 tabs 11/13/22 08/19/23 08/18/23 Rx lisinopril 20 1 tab PO DAILY #90 tabs 11/13/22 08/19/23 08/18/23 Rx mg-hydrochlorothiazide 25 mg tablet linaclotide 72 mcg capsule 72 mcg PO DAILY PRN Pain, Mild 01/01/23 08/19/23 08/18/23 History (Linzess) methocarbamol 750 mg tablet 750 mg PO Q6H PRN spasms #20 tabs 06/11/23 08/19/23 08/18/23 Rx naproxen 500 mg tablet (Naprosyn) 500 mg PO BID PRN pain #20 tabs 06/11/23 08/19/23 08/18/23 Rx oxycodone-acetaminophen 10 mg-325 1 tab PO Q6H PRN pain 30 days #120 07/22/23 08/19/23 08/18/23 Rx mg tablet tabs Allergies Allergy/AdvReac Type Severity Reaction Status Date / Time adhesive tape Allergy ALGY-Rash Verified 08/19/23 08:26 hydrocodone Allergy ADR-Nausea Verified 08/19/23 08:26 metoclopramide [From Reglan] Allergy ADR-Itching Verified 08/19/23 08:26 promethazine [From Phenergan] Allergy ADR-Vomitin Verified 08/19/23 08:26 g Current Medications Generic Name Dose Route Start Last Admin Trade Name Freq PRN Reason Stop Dose Admin Sodium Chloride 1,000 mls @ 30 mls/hr 08/19/23 08:30 08/19/23 08:57 Sodium Chloride 0.9% IV 08/20/23 08:29 30 mls/hr .Q24H JOSEF Administration PFSH Anesthesia Medical History Acute viral syndrome Opioid contract exists Encounter for long-term opiate analgesic use Chronic low back pain with sciatica Rosacea History of pulmonary embolism post op, had DVT Dyslipidemia borderline by report, not on treatment Hypertension Chronic narcotic use ~ 2yrs, for back pain Obesity BMI 39 Surgical History H/O laminectomy History of carpal tunnel release left History of D&C History of hysterectomy due to life threatening bleeding while on anticoagulation for PE/DVT History of laparoscopic adjustable gastric banding History of tonsillectomy History of back surgery (~2018) History of right knee surgery (~2008) patellar realignment Family History Father Cancer pancreatic cancer Other Diabetes Heart disease Hypertension Social History Smoking and tobacco/nicotine status: current every day tobacco/nicotine user cigarettes [ Other cigarette details: .5 pack per day] and e-cigarettes E- Cigarette Details: vaporizer device and without nicotine Alcohol intake: never Substance/Drug Use: never Lives independently: Yes Household members: spouse Current occupational status: disabled Female Reproductive History Para: 3 Spontaneous abortions: No Data Anesthesia Cardiac Studies: No Data to Display
--- NOTE | 2023-08-19 09:31 | W.PM.OPSUD ---
Surgery/Procedure H&P Update DATE OF PROCEDURE: August 19, 2023 DATE H&P PERFORMED: 08/15/23 H&P UPDATE INFORMATION: I have reviewed H&P completed within last 30 days, I have examined patient prior to procedure and No changes to prior documentation PREOP DIAGNOSIS: Arthritis of sacroiliac joints PLANNED PROCEDURE: Operation Date: 08/19/23 09:55 Proposed Procedures p Posterior Segmental Instrumentation(Not Applicable) - DO angie Leal Lumbopelvic Fixation(Not Applicable) - DO angie Leal Sacroiliac Joint Fusion(Bilateral) - Chevy Cruz DO
[2023-08-19] MEDS: fentaNYL 50 mcg/mL INJ 2mL IVP ×2 (09:32→12:36)
[2023-08-19] MEDS: ceFAZolin 2,000 MG in sodium chloride 0.9% (plus) 50 ML 100 MG IV ×2 (09:55→17:00)
[2023-08-19] MEDS: lidocaine-epi 1% 20 mL INJ INJECTION (10:44)
[2023-08-19] MEDS: vancomycin 1,000 MG SDV 1000 MG XX (10:45)
[2023-08-19] MEDS: heparin, porcine 1,000 unit/mL INJ 10 mL 10000 UNIT IRRIGATION (10:45)
--- NOTE | 2023-08-19 11:57 | PM.OP ---
Operative Report Date of procedure: August 19, 2023 Pre-op diagnosis: Sacroiliitis Post-op diagnosis: same Procedure done: 1. L3 - S1 posterior instrumentation 2. Lumbopelvic fixation 3. L5 to pelvis posterior spine fusion 4. open Right Sacral iliac fusion 5. open Left sacral iliac fusion 6. use of computer navigation/ stereotactic for spine 7. removal deep hardware from spine 8. use of allograft. 9. Bone marrow aspirate from right iliac crest Surgeon: Chevy Cruz DO Estimated blood loss (mL): 250 Procedure: 1. L3 - S1 posterior instrumentation 2. Lumbopelvic fixation 3. L5 to pelvis posterior spine fusion 4. open Right Sacral iliac fusion 5. open Left sacral iliac fusion 6. use of computer navigation/ stereotactic for spine 7. removal deep hardware from spine 8. use of allograft. 9. Bone marrow aspirate from right iliac crest Patient is brought to the operative suite after undergoing anesthesia placed in the prone position. All his impingement well-padded. Patient was prepped and draped normal sterile fashion. Neuromonitoring was used throughout the entire case. Skin incision was made using previous skin incision. Dissection was down to the L3-S1 screws and out the sacral ala bilaterally. The screw caps from L3-4-5 and S1 were removed bilaterally. Rods were removed bilaterally. Next tension was brought to placing the fiducial in the right iliac crest. This was done by placing 2 pins were later removed at the end of the case. These pins then attached to the fiducial. The C-arm was brought in and spun around the patient and the information from serum was then loaded in the computer for the later used for placing the iliac screws and the sacral screws. Next tension was brought to obtain the bone marrow aspirate from right iliac crest. This was done using the regenerative cell bone marrow aspiration kit. The needle was then started 10 cc of bone marrow aspirate were withdrawn and this was later mixed with the bone graft. Next attention was brought to placing the iliac screws. This was done using the gearshift probe the probe was placed through the sacrum crossed the ala across the sacroiliac joint and into the iliac crest. Next a tap was used and then a screw on the right side was a 70 mm 9.5 screw. This process was repeated on the left side and this was an 70 mm screw placed on the left side. Next tension was brought to doing the open sacroiliac fusion. This was done by exposing the SI joint. The gearshift probe linked to computer navigation was used to cross from the sacral ala across the sacroiliac joint and into the iliac crest. Next a wire was placed through this hole. And then the wire was overdrilled. And then the screw was placed under C-arm guidance. This process was done on both the right and the left side screws were found to be in appropriate position bilaterally. The transverse process and sacral ala were exposed decorticated and the allograft was then packed into this gutter in order to provide for the L5 to the pelvis fusion. Next the rods were attached from L3-S1 and then to the iliac screws bilaterally. Screw caps were placed and torqued down. From L3 to the pelvis. Providing the lumbopelvic fixation. Wounds were then irrigated and vancomycin powder and deep drain placed wound was closed in layered fashion with 0 Vicryl 2-0 Vicryl and Monocryl suture. Sterile dressings were applied patient transferred to the PACU in stable condition.
[2023-08-19] MEDS: hyDRALAzine 20 mg/mL INJ 1 mL 5 MG IVP (12:49)
--- NOTE | 2023-08-19 13:30 | ANE.PACU2 ---
Inpatient post-anesthesia follow up: Airway intact: Yes Vital signs: Temperature 98.3 F Pulse Rate 75 Respiratory Rate 16 Blood Pressure 151/89 Pulse Oximetry 95 Oxygen Delivery Me thod Nasal Cannula Oxygen Flow Rate 2 Fraction of Inspir ed Oxygen Hydration adequate: Yes Nausea and vomiting: No Pain level: 1 Mental status: Baseline
[2023-08-19] MEDS: lactated ringers 1,000 ML 90 ML IV (13:41)
[2023-08-19] MEDS: oxyCODONE-APAP 10-325 mg Tablet PO ×3 (13:41→22:13)
--- NOTE | 2023-08-19 15:09 | XR_ITS ---
WS: [id number] Exam: XR lumbar spine 2-3V* [id number] Date/Time of Exam: 08/19/2023 3:09 PM Reason For Exam: TOD PICS AP intraoperative images of the lower lumbar spine and pelvis submitted. These images were obtained for intraoperative purposes.
[2023-08-19] MEDS: docusate sodium 100 mg Capsule PO (17:00)
--- NOTE | 2023-08-19 18:18 | PC.NURSE ---
SHIFT SUMMARY Patient has done well since arriving to the floor. Pain controlled with oral pain medication. Patient got up and ambulated with physical therapy. Tolerated well. BP has improved. 300ml of urine output. 175ml out of the hemovac. Good PO intake. Titrated to room air. Surgical dressing C/D/I. Currently resting in bed.
[2023-08-19] MEDS: ondansetron 2 mg/ML SDV 2 mL 4 MG IVP (21:28)
[2023-08-20] VITALS (15 sets, daily range): BP systolic 161–208; BP diastolic 81–124; PULSE 66–81; RESP 15–20; TEMP 36.6–36.8; O2SAT 94–99
[2023-08-20] MEDS: lactated ringers 1,000 ML 90 ML IV (00:36)
[2023-08-20] MEDS: ondansetron 2 mg/ML SDV 2 mL 4 MG IVP ×4 (02:22→22:49)
[2023-08-20] MEDS: ketorolac 30 mg/mL INJ IVP (02:23)
[2023-08-20] MEDS: ceFAZolin 2,000 MG in sodium chloride 0.9% (plus) 50 ML 100 MG IV ×2 (02:33→10:56)
[2023-08-20] MEDS: buPROPion XL (24 HR) 300 mg Tablet PO (07:13)
[2023-08-20] MEDS: oxyCODONE-APAP 10-325 mg Tablet PO ×2 (07:13→13:28)
[2023-08-20] MEDS: hydroCHLOROthiazide 25 mg Tablet PO (08:46)
[2023-08-20] MEDS: lisinopril 20 mg Tablet PO (08:46)
--- NOTE | 2023-08-20 08:47 | PC.NURSE ---
Patient has had emesis during the night and this am. Gave patient blood pressure medication only at this time. Watching patient to see if it will stay down
--- NOTE | 2023-08-20 09:51 | PC.NURSE ---
Notified Dr. Cruz of patients blood pressure of 176/124 gave blood pressure medications, blood pressure taken again approximately 30 minutes later was 192/102. Dr. Cruz stated it was pain related and patient needs to discharge and follow up with primary care. Patient was given 20 mg of Percocet this am. Patient is resting with cold wash cloth at base of neck and on forehead.
--- NOTE | 2023-08-20 10:14 | PC.CHAP ---
Pastoral Care Encounter/Spiritual Assessment Type of Contact [] Declined physics technical officer visit [] Patient/Family/Request visit [] Outpatient visit [] Follow-up visit [] Physician referral [] Code/Alert [] Routine visit [] Staff referral [] Actively dying [] Patient sleeping [] Family support [] [] Out of room [] Palliative care [] [x] Receiving care in room [] Pre-surgical visit [] Trauma [] Long length of stay [] ICU visit [] Other: Relational/Emotional Strength [] Patient feels connected with others/family/visitors/staff [] Distress [] Loneliness/isolation [] Abandonment Spirituality of Patient [] Person of Dolores [] Attends Faith of their Dolores [] Believes in Prayer [] Reads Bible or Episcopalian materials [] There are Spiritual issues to be addressed 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 [] Prayer [] Active listening [] Non-anxious presence [] Spiritual/emotional support [] Crisis/trauma care [] Spiritual counseling [] Bereavement support [] Provided bereavement packet [] Provided Bible/devotional materials [] Provided toy/stuffed animal, coloring book to patient or family member [] Provided Communion [] Anointing/[place] [] Salvation [] Completed spiritual assessment [] Other: Impact on Illness or Injury [] Angry [] Fearful [] Anxious [] Often cries [] Exhaustion [] Unable to work [] Unable to attend confucianism [] Unable to walk/stand [] Unable to read [] Unable to drive [] Unable to eat/drink [] Unable to sleep [] Unable to be with family [] Patient intubated [] Other: Summary Time spent with patient
--- NOTE | 2023-08-20 10:47 | PC.NURSE ---
Dr. Cruz contacted of Blood Pressure 208/108. Dr. Cruz To give morphine.
[2023-08-20] MEDS: morphine 4 mg/mL SDV 1 mL 2 MG IVP (10:51)
[2023-08-20] MEDS: escitalopram 10 mg Tablet 20 MG PO (10:54)
[2023-08-20] MEDS: docusate sodium 100 mg Capsule PO ×2 (10:58→19:16)
--- NOTE | 2023-08-20 12:56 | P.CONIM_ITS ---
Providers/Reason For Consult 2 Consulting Physician/Specialty*: [facility]/Cindy MD Judi Reason for Consult*: Hypertension Requesting Physician: Dr. Cruz Attending Physician: Chevy Cruz DO Primary Care Provider: Sb Le DO History of Present Illness History of Present Illness Dolores Carlson is a 43 year old female With past medical history of long-term opiate use, chronic low back pain, rosacea, PE was on anticoagulation in the past and then stopped, dyslipidemia, hypertension, obesity presented to the hospital for elective L3 S1 lumbopelvic fixation. Postop she has been doing okay however blood pressure has been elevated and therefore medicine was consulted. Patient does have a history of hypertension and takes lisinopril 20 hydrochlorothiazide 25 daily. She does carry a history of anxiety and depression as well. Her home medications have not been added however blood pressure is still elevated. Hydralazine 10 IV x 1 was given to the patient and I went to her room to evaluate her. Upon evaluation of the patient at bedside she had active nausea vomiting. She had received 20 of her oxycodone orally. She says he is in a lot of pain after she used the bathroom. She also has a history of chronic pain for which she uses 1 to 2 tablets of oxycodone at home. She says the Zofran is not helping the nausea. Patient was offered Reglan or Phenergan however she stated that she is allergic to them and they cause her to have more nausea. Reglan she cannot tolerate because she gets restless leg syndrome from it. I tried to convince her to try Reglan however she refused. An additional 4 mg of Zofran was given to equal 8 mg total. Since patient cannot keep tolerate anything per oral I talked with her regarding stopping any oral pain medications at this time and switching to IV for today. We may gradually add back her oral pain medications as tolerated tomorrow. Patient in agreement. Order given for hydralazine 5 IV x 1. Blood pressure is 168/110. Additionally 4 mg Zofran, 1 mg Dilaudid, 0.5 mg Ativan for intractable nausea. Patient states other than hypertension and chronic pain she has no other medical problems at this time. RN at bedside. Medications/Allergies Home Medications Medication Instructions Recorded Confirmed Last Taken Type bupropion HCl 300 mg 24 hr tablet, 300 mg PO QAM #30 tabs 11/13/22 08/19/23 08/18/23 Rx extended release escitalopram oxalate 20 mg tablet 20 mg PO DAILY #30 tabs 11/13/22 08/19/23 08/18/23 Rx lisinopril 20 1 tab PO DAILY #90 tabs 11/13/22 08/19/23 08/18/23 Rx mg-hydrochlorothiazide 25 mg tablet linaclotide 72 mcg capsule 72 mcg PO DAILY PRN Pain, Mild 01/01/23 08/19/23 08/18/23 History (Linzess) methocarbamol 750 mg tablet 750 mg PO Q6H PRN spasms #20 tabs 06/11/23 08/19/23 08/18/23 Rx naproxen 500 mg tablet (Naprosyn) 500 mg PO BID PRN pain #20 tabs 06/11/23 08/19/23 08/18/23 Rx oxycodone-acetaminophen 10 mg-325 1 tab PO Q6H PRN pain 30 days #120 07/22/23 08/19/23 08/18/23 Rx mg tablet tabs Allergies Allergy/AdvReac Type Severity Reaction Status Date / Time adhesive tape Allergy ALGY-Rash Verified 08/19/23 08:26 hydrocodone Allergy ADR-Nausea Verified 08/19/23 08:26 metoclopramide [From Reglan] Allergy ADR-Itching Verified 08/19/23 08:26 promethazine [From Phenergan] Allergy ADR-Vomitin Verified 08/19/23 08:26 g Current Medications Generic Name Dose Route Start Last Admin Trade Name Oscarq PRN Reason Stop Dose Admin Bupropion HCl 300 mg 08/20/23 06:00 08/20/23 07:13 Bupropion Xl (24 Hr) 300 Mg Tablet PO 300 mg QAM JOSEF Administration Docusate Sodium 100 mg 08/19/23 18:00 08/20/23 10:58 Docusate Sodium 100 Mg Capsule PO 100 mg BID JOSEF Administration Escitalopram Oxalate 20 mg 08/20/23 09:00 08/20/23 10:54 Escitalopram 10 Mg Tablet PO 20 mg DAILY JOSEF Administration Hydrochlorothiazide 25 mg 08/20/23 09:00 08/20/23 08:46 Hydrochlorothiazide 25 Mg Tablet PO 25 mg DAILY JOSEF Administration Lactated Ringer's 1,000 mls @ 90 mls/hr 08/19/23 12:00 08/20/23 00:36 Lactated Ringers IV 90 mls/hr .[id number] JOSEF Administration Ketorolac Tromethamine 30 mg 08/19/23 11:48 08/20/23 02:23 Ketorolac 30 Mg/Ml Inj IVP 30 mg Q6H PRN Administration BREAKTHROUGH PAIN Lisinopril 20 mg 08/20/23 09:00 08/20/23 08:46 Lisinopril 20 Mg Tablet PO 20 mg DAILY JOSEF Administration Morphine Sulfate 2 mg 08/19/23 11:48 08/20/23 10:51 Morphine 4 Mg/Ml Sdv 1 Ml IVP 2 mg Q1H PRN Administration SEVERE PAIN Ondansetron HCl 4 mg 08/19/23 11:48 08/20/23 02:22 Ondansetron 2 Mg/Ml Sdv 2 Ml IVP 4 mg Q6H PRN Administration NAUSEA AND VOMITING Oxycodone/Acetaminophen 1 - 2 tab 08/19/23 11:48 08/20/23 07:13 Oxycodone-Apap 10-325 Mg Tablet PO 2 tab Q4H PRN Administration MODERATE TO SEVERE PAIN PFSH Acute 2 PFSH: Medical History Acute viral syndrome Opioid contract exists Encounter for long-term opiate analgesic use Chronic low back pain with sciatica Rosacea History of pulmonary embolism post op, had DVT Dyslipidemia borderline by report, not on treatment Hypertension Chronic narcotic use ~ 2yrs, for back pain Obesity BMI 39 Surgical History H/O laminectomy History of carpal tunnel release left History of D&C History of hysterectomy due to life threatening bleeding while on anticoagulation for PE/DVT History of laparoscopic adjustable gastric banding History of tonsillectomy History of back surgery (~2017) History of right knee surgery (~2008) patellar realignment Family History Father Cancer pancreatic cancer Other Diabetes Heart disease Hypertension Social History Smoking and tobacco/nicotine status: current every day tobacco/nicotine user cigarettes [ Other cigarette details: .5 pack per day] and e-cigarettes E- Cigarette Details: vaporizer device and without nicotine Alcohol intake: never Substance/Drug Use: never Lives independently: Yes Household members: spouse Current occupational status: disabled Female Reproductive History: Para: 3 Spontaneous abortions: No Vitals/I&O/Wt Last Vital Signs Temp 97.8 F 08/20/23 11:19 Pulse 68 08/20/23 11:19 Resp 17 08/20/23 11:19 BP 167/101 08/20/23 11:19 Pulse Ox 94 08/20/23 11:19 O2 Del Method Room Air 08/20/23 11:19 O2 Flow Rate 2 08/19/23 13:30 08/19/23 08/20/23 08/20/23 22:59 06:59 14:59 Intake Total 650 / 2000 1272.5 / 3272.5 Output Total 550 / 810 475 / 1285 Balance 100 / 1190 797.5 / 1987.5 Weight last 48 hrs Weight 117.526 kg Weight 111.13 kg Physical Exam 2 Narrative: General: Patient seen actively vomiting up recent medications given to her overly HEENT: Normocephalic, atraumatic, EOMI, breathing normally room air Cardio: Regular rate rhythm, normal S1-S2, Respiratory: cta b/l, no wheezes no ronchi GI: Abdomen soft, nontender, nondistended, bowel sounds + Extremities:grossly normal Urinary Catheter Management: Thompson: Cath Placed During This Visit: yes, but has since been removed by the nurse Reason for Continuing Indwelling Catheter: Decision to DC Catheter Urinary Catheter Date of Insertion: 08/19/23 Urinary Catheter Time of Insertion: 10:10 Date Urinary Catheter Removed: 08/20/23 Time Urinary Catheter Discontinued: 09:50 Data 08/20/23 15:21 08/20/23 15:21 A&P Assessment and plan (1) Hypertensive urgency: (2) Generalized anxiety disorder: (3) Anxiety and depression: (4) Status post lumbar spinal fusion: Plan #Postop day 1 lumbopelvic fixation #Hypertensive urgency #History of anxiety, depression #Morbidly obesity #Chronic opioid user #Chronic back pain ? Patient has had lisinopril 20, record thiazide 25 x 1. ? Ketorolac 30 every 6 hours as needed for pain ? Morphine 2 mg IV push every 1 hour as needed for pain. ? 1 to 2 tablets oxycodone every 4 hours as needed for pain also on board. ? I would keep patient on hydralazine 10 IV every 4 hours as needed at this time for systolic blood pressure greater than 180. ? I believe pain and intractable nausea may be a component to elevated blood pressures at this time. -I will order Ativan 0.5 Mg x 1, Zofran 4 mg IV x 1, placed patient on Dilaudid. ? I will hold all oral pain medications at this time. Once patient is able to tolerate by mouth and nausea is better we may restart oral analgesics. ? I would probably keep her current home bp meds the same for now with no further changes. ? Check TSH, cortisol level - -Continue to monitor blood pressure. Full code DVT prophylaxis: Defer adding for now. SCDs. Discussed with surgery before adding on pharmacological. Consult Attestations 2 Medical Necessity Statement: Patient requires continued hospitalization for postop care for lumbopelvic fixation. She is hypertensive at this time. Blood pressure needs to be well- controlled prior to discharge. Coding Level of Care Code Critical Care >/= 30 minutes Critical care time (in minutes): 33 The high probability of a clinically significant, sudden or life threatening deterioration, as referenced in this documentation, required my full and direct attention, intervention and personal management. The critical care time shown is in addition to time spent performing any reported separately billable procedures and includes the following: [x] Data and vital sign review and interpretation [x ] Patient assessment, examination and intervention [x] Medication orders and management [x] Patient/Family updates as able [x] Care Coordination and Documentation. Diagnoses Hypertensive urgency I16.0 Generalized anxiety disorder F41.1 Anxiety and depression F41.9; F32.A Status post lumbar spinal fusion Z98.1
[2023-08-20] MEDS: hyDRALAzine 20 mg/mL INJ 1 mL 10 MG IVP (13:31)
[2023-08-20] MEDS: labetalol 200 mg Tablet PO (15:02)
[2023-08-20] MEDS: labetalol 5 mg/mL SDV 20mL IVP (15:25)
[2023-08-20 15:29] LABS: Basophils # 0.1 10^3/uL (0.0-0.1); Basophils % 0.7 %; Eosinophils # 0.3 10^3/uL (0.0-0.8); Eosinophils % 1.9 %; Hematocrit 36.3 % (36-47); Lymphocytes # 2.3 10^3/uL (0.8-4.8); Lymphocytes % 15.7 %; Mean Corpuscular HGB Conc 31.7 g/dL (30-55); Mean Corpuscular Hemoglobin 28.8 pg (27-33); Mean Platelet Volume 9.9 fL (7.4-10.4); Monocytes # 0.9 10^3/uL (0.2-0.9); Monocytes % 6.1 %; Neutrophils # 10.85 10^3/uL (1.8-7.7); Neutrophils % 75.2 %; Nucleated Red Blood Cells % 0 %; Platelet Count 253 10^3/cmm (157-399); Red Blood Count 3.99 10^6/uL (3.85-5.65); Red Cell Distribution Width 14.3 % (12.1-15.1); White Blood Count 14.43 10^3/uL (3.29-11.43)
--- NOTE | 2023-08-20 15:29 | PC.NURSE ---
Notified Dr. Lau patient blood pressure is 165/103. Gave patient 4 mg Zofran IVP and 10 mg labetolol PO. Patient vomitted Labetolol tablets. Dr. Lau stated to give 10 mg Labetolol IVP and 4 mg Zofran again for a total of [address] Lau is going to review chart.
[2023-08-20 15:58] LABS: Alanine Aminotransferase 11 U/L (0-33); Albumin Level 3.8 g/dL (3.5-5.2); Alkaline Phosphatase 109 U/L (35-105); Anion Gap 16.3 (5-19); Aspartate Amino Transferase 13 U/L (0-32); Blood Urea Nitrogen 16 mg/dL (6-20); Carbon Dioxide 22 mmol/L (22-29); Chloride 104 mmol/L (98-107); Cortisol Random 26.29 ug/dL (2.47-19.5); Globulin 3.2 g/dL (1.3-4.6); Glomerular Filtration Rate 108.1 mL/min (90-130); Glucose 105 mg/dL (65-115); Osmolality Calculated 290 mOsm/kg (285-295); Potassium 3.3 mmol/L (3.5-5.1); Sodium 139 mmol/L (136-145); Thyroid Stimulating Hormone 1.01 uIU/mL (0.27-4.20); Total Bilirubin 0.5 mg/dL (0.15-1.2)
[2023-08-20] MEDS: LORazepam 2 mg/mL INJ 10 mL MDV 0.5 MG IVP (16:38)
[2023-08-20] MEDS: HYDROmorphone 1 mg/mL INJ 1 mL IVP ×2 (17:50→22:53)
[2023-08-20] MEDS: potassium chloride ER 20 mEq Tablet 40 MEQ PO (19:16)
[2023-08-21] VITALS (8 sets, daily range): BP systolic 135–165; BP diastolic 80–93; PULSE 69–83; RESP 16–18; TEMP 36.4–37.3; O2SAT 93–97; BMI 40.7
[2023-08-21] MEDS: morphine 4 mg/mL SDV 1 mL 2 MG IVP (01:29)
[2023-08-21] MEDS: buPROPion XL (24 HR) 300 mg Tablet PO (05:40)
[2023-08-21] MEDS: ondansetron 2 mg/ML SDV 2 mL 4 MG IVP (05:41)
[2023-08-21] MEDS: HYDROmorphone 1 mg/mL INJ 1 mL IVP ×2 (05:45→10:48)
[2023-08-21 05:49] LABS: Basophils # 0.1 10^3/uL (0.0-0.1); Basophils % 0.5 %; Eosinophils # 0.3 10^3/uL (0.0-0.8); Eosinophils % 1.9 %; Hematocrit 36.5 % (36-47); Lymphocytes # 1.9 10^3/uL (0.8-4.8); Lymphocytes % 12.5 %; Mean Corpuscular HGB Conc 31.2 g/dL (30-55); Mean Corpuscular Hemoglobin 29.2 pg (27-33); Mean Corpuscular Volume 93.4 fl (85-98); Mean Platelet Volume 10.3 fL (7.4-10.4); Monocytes # 1.1 10^3/uL (0.2-0.9); Monocytes % 7.3 %; Neutrophils # 11.95 10^3/uL (1.8-7.7); Neutrophils % 77.3 %; Nucleated Red Blood Cells % 0 %; Platelet Count 275 10^3/cmm (157-399); Red Blood Count 3.91 10^6/uL (3.85-5.65); Red Cell Distribution Width 14.5 % (12.1-15.1); White Blood Count 15.44 10^3/uL (3.29-11.43)
[2023-08-21 06:09] LABS: Anion Gap 15.5 (5-19); Blood Urea Nitrogen 15 mg/dL (6-20); Calcium 9.1 mg/dL (8.5-10.5); Carbon Dioxide 24 mmol/L (22-29); Chloride 102 mmol/L (98-107); Creatinine Clr Calc Pharmacy 147.0173; Glomerular Filtration Rate 108.1 mL/min (90-130); Glucose 104 mg/dL (65-115); Magnesium 2.1 mg/dL (1.7-2.3); Osmolality Calculated 287 mOsm/kg (285-295); Potassium 3.5 mmol/L (3.5-5.1); Sodium 138 mmol/L (136-145)
[2023-08-21] MEDS: docusate sodium 100 mg Capsule PO (08:34)
[2023-08-21] MEDS: lisinopril 20 mg Tablet PO (08:35)
[2023-08-21] MEDS: hydroCHLOROthiazide 25 mg Tablet PO (08:35)
[2023-08-21] MEDS: escitalopram 10 mg Tablet 20 MG PO (08:36)
--- NOTE | 2023-08-21 13:00 | P.PN_ITS ---
Subjective 2 Subjective: Seen this morning. Pressure is better compared to before however patient still having pain. 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 Patient in agreement. Vitals/I&O/Wt Last Vital Signs Temp 98.1 F 08/21/23 10:57 Pulse 81 08/21/23 10:57 Resp 18 08/21/23 10:57 BP 165/93 08/21/23 10:57 Pulse Ox 97 08/21/23 10:57 O2 Del Method Room Air 08/21/23 10:57 O2 Flow Rate 2 08/19/23 13:30 08/20/23 08/21/23 08/21/23 22:59 06:59 14:59 Intake Total 1290 / 1290 480 / 1770 240 / 240 Balance 1290 / 1290 480 / 1770 240 / 240 Weight last 48 hrs Weight 111.13 kg Weight 117.526 kg Physical Exam 2 Narrative: General: NAD HEENT: Normocephalic, atraumatic, EOMI, breathing normally room air Cardio: Regular rate rhythm, normal S1-S2, Respiratory: cta b/l, no wheezes no ronchi GI: Abdomen soft, nontender, nondistended, bowel sounds + Extremities:grossly normal Urinary Catheter Management: Thompson: Cath Placed During This Visit: yes, but has since been removed by the nurse Reason for Continuing Indwelling Catheter: Decision to DC Catheter Urinary Catheter Date of Insertion: 08/19/23 Urinary Catheter Time of Insertion: 10:10 Date Urinary Catheter Removed: 08/20/23 Time Urinary Catheter Discontinued: 09:50 Data 08/21/23 04:54 08/21/23 04:54 A&P Assessment and plan (1) Hypertensive urgency: (2) Generalized anxiety disorder: (3) Anxiety and depression: (4) Status post lumbar spinal fusion: Plan #Postop day 1 lumbopelvic fixation #Hypertensive urgency #History of anxiety, depression #Morbidly obesity #Chronic opioid user #Chronic back pain ? Continue patient's home blood pressure medications. Blood pressure is slightly elevated however she is having active pain. ? Recommend oxycodone 5 every 4 hours as needed ? Recommend starting OxyContin 10 twice daily ? Patient okay to discharge from medical standpoint. ? Recommend to refer for pain management at discharge. She states she already has an appointment upcoming. ? Discharge instructions and further management as per orthopedic surgery. ? Discussed with orthopedic surgeon in detail who is in agreement with above plan. Full code DVT prophylaxis: Defer to surgical team. Attestations 2 Medical Necessity Statement*: Defer to primary team Diagnoses Hypertensive urgency I16.0 Generalized anxiety disorder F41.1 Anxiety and depression F41.9; F32.A Status post lumbar spinal fusion Z98.1
--- NOTE | 2023-08-21 13:55 | P.DS_ITS ---
Discharge Providers Date of Admission: 08/19/23 11:40 Date of Discharge: August 21, 2023 Attending Provider at Admission: Chevy Cruz DO Attending Provider at Discharge: Chevy Cruz DO Primary Care Provider: bS Le DO Diagnoses at Discharge Discharge Diagnosis (1) Hypertensive urgency: Status: Acute (2) Generalized anxiety disorder: Status: Acute (3) Anxiety and depression: Status: Acute (4) Status post lumbar spinal fusion: Status: Acute Reason for Visit Reason for Visit: Z98.1 Physical Exam Narrative: Blood pressure is improved today. Will put her on a long-acting opioid so that she does not have to take such high dose of Percocet to get pain relief. Urinary Catheter Management: Thompson: Cath Placed During This Visit: yes, but has since been removed by the nurse Reason for Continuing Indwelling Catheter: Decision to DC Catheter Urinary Catheter Date of Insertion: 08/19/23 Urinary Catheter Time of Insertion: 10:10 Date Urinary Catheter Removed: 08/20/23 Time Urinary Catheter Discontinued: 09:50 Discharge Data Studies Completed and Pending Completed Studies During Hospitalization Category Date Time Status XR lumbar spine 2-3V* 05856 Routine Exams 08/19/23 15:09 Completed Laboratory Results WBC 15.44 10^3/uL (3.29-11.43) H 08/21/23 04:54 RBC 3.91 10^6/uL (3.85-5.65) 08/21/23 04:54 Hgb 11.40 g/dL (11.27-16.99) 08/21/23 04:54 Hct 36.5 % (36-47) 08/21/23 04:54 MCV 93.4 fl (85-98) 08/21/23 04:54 MCH 29.2 pg (27-33) 08/21/23 04:54 MCHC 31.2 g/dL (30-55) 08/21/23 04:54 RDW 14.5 % (12.1-15.1) 08/21/23 04:54 Plt Count 275 10^3/cmm (157-399) 08/21/23 04:54 MPV 10.3 fL (7.4-10.4) 08/21/23 04:54 Neut % (Auto) 77.3 % 08/21/23 04:54 Lymph % (Auto) 12.5 % 08/21/23 04:54 Crawford % (Auto) 7.3 % 08/21/23 04:54 Eos % (Auto) 1.9 % 08/21/23 04:54 Baso % (Auto) 0.5 % 08/21/23 04:54 Neut # (Auto) 11.95 10^3/uL (1.8-7.7) H 08/21/23 04:54 Lymph # (Auto) 1.9 10^3/uL (0.8-4.8) 08/21/23 04:54 Crawford # (Auto) 1.1 10^3/uL (0.2-0.9) H 08/21/23 04:54 Eos # (Auto) 0.3 10^3/uL (0.0-0.8) 08/21/23 04:54 Baso # (Auto) 0.1 10^3/uL (0.0-0.1) 08/21/23 04:54 Nucleated RBC % (auto) 0 % 08/21/23 04:54 Nucleated RBCs # 0.0 /100WBC 08/21/23 04:54 Sodium 138 mmol/L (136-145) 08/21/23 04:54 Potassium 3.5 mmol/L (3.5-5.1) 08/21/23 04:54 Chloride 102 mmol/L (98-107) 08/21/23 04:54 Carbon Dioxide 24 mmol/L (22-29) 08/21/23 04:54 Anion Gap 15.5 (5-19) 08/21/23 04:54 BUN 15 mg/dL (6-20) 08/21/23 04:54 Creatinine 0.6 mg/dL (0.5-0.9) 08/21/23 04:54 GFR Calculation 108.1 mL/min (90-130) 08/21/23 04:54 Glucose 104 mg/dL (65-115) 08/21/23 04:54 Calculated Osmolality 287 mOsm/kg (285-295) 08/21/23 04:54 Calcium 9.1 mg/dL (8.5-10.5) 08/21/23 04:54 Magnesium 2.1 mg/dL (1.7-2.3) 08/21/23 04:54 Total Bilirubin 0.5 mg/dL (0.15-1.2) 08/20/23 15:21 AST 13 U/L (0-32) 08/20/23 15:21 ALT 11 U/L (0-33) 08/20/23 15:21 Alkaline Phosphatase 109 U/L (35-105) H 08/20/23 15:21 Total Protein 7.0 g/dL (6.6-8.7) 08/20/23 15:21 Albumin 3.8 g/dL (3.5-5.2) 08/20/23 15:21 Globulin 3.2 g/dL (1.3-4.6) 08/20/23 15:21 TSH 1.01 uIU/mL (0.27-4.20) 08/20/23 15:21 Random Cortisol 26.29 ug/dL (2.47-19.5) H 08/20/23 15:21 Vitals Last Vital Signs Temp 98.1 F 08/21/23 10:57 Pulse 81 08/21/23 10:57 Resp 18 08/21/23 10:57 BP 165/93 08/21/23 10:57 Pulse Ox 97 08/21/23 10:57 O2 Del Method Room Air 08/21/23 10:57 O2 Flow Rate 2 08/19/23 13:30 Discharge Plan Discharge Patient Disposition: Home Condition: Stable Prescriptions: New OxyContin 10 mg tablet,oral only,ext.rel.12 hr 10 mg PO BID 7 Days Qty: 14 0RF oxycodone 5 mg tablet 5 - 10 mg PO Q4H PRN (Reason: pain) 7 Days Qty: 40 0RF Continued lisinopril-hydrochlorothiazide 20-25 mg tablet 1 tab PO DAILY Qty: 90 2RF escitalopram oxalate 20 mg tablet 20 mg PO DAILY Qty: 30 5RF bupropion HCl 300 mg tablet extended release 24 hr 300 mg PO QAM Qty: 30 5RF Linzess 72 mcg capsule 72 mcg PO DAILY PRN (Reason: Pain, Mild) methocarbamol 750 mg tablet 750 mg PO Q6H PRN (Reason: spasms) Qty: 20 0RF naproxen [Naprosyn] 500 mg tablet 500 mg PO BID PRN (Reason: pain) Qty: 20 0RF Discontinued oxycodone-acetaminophen 10-325 mg tablet 1 tab PO Q6H PRN (Reason: pain) 30 Days Qty: 120 0RF Discharge Orders: Discharge Order (Routine); Ordered 08/21/23 Ordered By: Chevy Cruz Discharge Diet: Advance as tolerated Discharge Activity: Limit activity as instructed Patient Instructions: Oxycodone, Rapid Release (By mouth), Chronic Hypertension (GEN), Lumbar Spinal Fusion (GEN), Opioid Safety Activity Restrictions/Additional Instructions: Thank you for [facility] for your care! The following is a list of instructions, from your provider, to follow upon your discharge to ensure you have the optimal recovery from your recent injury orsurgery. Follow-up care is a gerard part of your treatment and safety. Be sure to make and go to all appointments, and call your doctor if you are having problems. If you do not already have a follow-up appointment made, call Dr. Cruz office in the next 1-3 days to make follow up appointment for 1 weeks at [phone]. It is also a good idea to know your test results and keep a list of the medicines you take. Medications will be prescribed for you at your provider's discretion. These medications are to be used as instructed; if they are taken more often that prescribed they will not be refilled early and in most cases will not be refilled at all. > When a refill is needed,you should contact oscar duncan 2-3 business days before your prescription runs out. Medications will NOT be refilled by senior integration developer providers after hours! > Many pain medications contain Tylenol (Acetaminophen). Do not consume more than 4,000 mg of Tylenol per day in total with any combination ofmedications. > Pain medications can cause constipation. Please use an over the counter stool softener as directed, while taking pain medications. Consulty our local pharmacist with questions or recommendations on stool softeners. If constipation persists, contact our office or your primary care provider. > While under our care,you are not to receive pain medications or other controlled substances from any other provider unless our office is notified and approves. Any attempts to do so will result in refusal to prescribe any further pain medications and possible dismissal from our practice. ? Your wound and/or dressing should remain clean and dry for 7 days after surgery. On postoperative day 7 we will change her dressing. > It is normal for there to be a small amount of discharge (bloody or blood tinged) present from a surgical wound for the first 1-3days. > The wound should be examined twice a day for signs of infection. Mild redness or bruising is to be expected but indications that an infection maybe starting would include; An increase in redness, swelling, or discharge, a foul odor present around the incision, and/or a fever greater than 101 ?F ? Showering is permitted, however we ask that you do not take a bath, sit in a whirlpool / Jacuzzi, or go swimming for 1 month. For only the first 2 days after surgery, lt wilt be necessary for you to cover your wound/dressing with plastic and tape to keep it dry. ? Walking is essential for the healing process after surgery. We would like you to slowly advance your walking. This should be done on relatively flat clear ground (inside or out) or can be done on a treadmill. Remember this goal does not have to happen all at once, slowly increase your distance and duration. This can be broken into more more than one walk per day as tolerated. Patients who walk as directed after surgery rarely require Physical Therapy. In the unlikely event this issue arises your provider will direct hospital staff to make the appropriate arrangements. ? No lifting over 5 pounds {a gallon of milk) or bending/twisting until further notice. Each of these activities places an unnecessary amount of stress onto the body and can impede the delicate healing process. > Instead of bending at the waist, keep your back straight and bend at the knees. > Instead of twisting your torso, keep your back straight and turn your entire body with your feet. ? You may sleep in any position which makes you comfortable. Many patients find comfort sleeping in a reclining chair. It is not abnormal to have difficulty sleeping for the first several weeks following your surgery. We recommend trying Benadry! or Tylenol PM as directed to help with your sleeping difficulties. Both medications are over the counter and available withoutprescription. ? NO SMOKING!!! Smoking dramatically increases the probability of developing postoperative wound infections. ? Common complaints after lumbar and/or thoracic spine surgery include, but are not limited to: numbness and/or tingling in the legs, pain around the incision and surrounding tissues, muscle spasms, or stiffness of the middle to low back. Contact our office if these symptoms persist or if an acute change occurs. ? No driving for the first 3-5days, and not while taking narcotics until seen at your follow-up appointment and cleared. There are no restrictions for riding on short trips, however if you take a longer trip, arrangements should be made to make regular stops to get out of the vehicle and stretch . ? Swelling is an unfortunate event that will take place with any surgery and is the primary source of your postoperative discomfort. While walking and regular approved activities helps control inflammation, there are additional steps you can take to minimizeswelling. > Place ice over the surgical site and surrounding tissue for twenty minutes, followed by applying a low/medium heat (heating pad) for an additional twenty minutes every 1-2 hours as needed for painrelief. > You may use of over the counter anti-inflammatory medications (Ibuprofen, Motrin, Aleve, Advil, etc) as directed on the package label. These types of medicines wm significantly reduce the amount of discomfort you experience after surgery from swelling. It should be noted that if you have and allergy to any of these medications, or a history of ulcers or kidney disease you should consult you primary care provider prior to starting these medications. Discharge Attestations Time Spent in Discharge Care*: less than 30 min Quality Metrics Clinical Quality Measures [ No reported AMI, CVA or VTE this stay] Coding Level of Care Code Acute Code for Chg Fwd Diagnoses Hypertensive urgency I16.0 Generalized anxiety disorder F41.1 Anxiety and depression F41.9; F32.A Status post lumbar spinal fusion Z98.1
--- NOTE | 2023-08-21 15:43 | PC.NURSE ---
Discussed discharge, new medications, follow up appointments, restrictions and signs and symptoms of infection with patient. Patient verbalized understanding.
--- NOTE | 2023-08-22 11:20 | P.PN_ITS ---
Subjective 2 Subjective: Is a progress note for 08/20/2023 Patient is having headaches and pain blood pressure is elevated. Vitals/I&O/Wt Last Vital Signs Temp 98.1 F 08/21/23 15:44 Pulse 81 08/21/23 15:44 Resp 18 08/21/23 15:44 BP 165/93 08/21/23 15:44 Pulse Ox 97 08/21/23 15:44 O2 Del Method Room Air 08/21/23 10:57 O2 Flow Rate 2 08/19/23 13:30 Weight last 48 hrs Weight 245 lb Physical Exam 2 Narrative: 5 out of 5 strength in lower extremities however complaining of headaches and blood pressure is elevated Urinary Catheter Management: Thompson: Cath Placed During This Visit: yes, but has since been removed by the nurse Reason for Continuing Indwelling Catheter: Decision to DC Catheter Urinary Catheter Date of Insertion: 08/19/23 Urinary Catheter Time of Insertion: 10:10 Date Urinary Catheter Removed: 08/20/23 Time Urinary Catheter Discontinued: 09:50 Data 08/21/23 04:54 08/21/23 04:54 A&P Assessment and plan (1) Status post lumbar spinal fusion: Will consult hospitalist for blood pressure issues. Attestations 2 Medical Necessity Statement*: Elevated blood pressures Coding Level of Care Code Acute Code for Chg Fwd Diagnoses Status post lumbar spinal fusion Z98.1
== END 2023-08-21 15:15 | disposition home or self-care (01) | DRG 454 ==
LOC: MEDSURG 12:27
PROVIDERS: Internal Medicine; Admitting Provider Orthopaedic Surgery; PCP Family Medicine; Visit Provider Orthopaedic Surgery
PROC: 0SG80KZ Fusion of Left Sacroiliac Joint with Nonautologous Tissue Substitute, Open Approach (ICD-10-PCS; principal; 2023-08-19 09:35)
PROC: 0SG80KZ Fusion of Left Sacroiliac Joint with Nonautologous Tissue Substitute, Open Approach (ICD-10-PCS; 2023-08-19 09:35)
PROC: 0SG80KZ Fusion of Left Sacroiliac Joint with Nonautologous Tissue Substitute, Open Approach (ICD-10-PCS; CPT 27280; 2023-08-19 09:35)
DX: M46.1 Sacroiliitis, not elsewhere classified (principal); Z68.41 Body mass index [BMI] 40.0-44.9, adult; F17.210 Nicotine dependence, cigarettes, uncomplicated; F17.290 Nicotine dependence, other tobacco product, uncomplicated; I10 Essential (primary) hypertension; G89.29 Other chronic pain; E78.5 Hyperlipidemia, unspecified; E66.01 Morbid (severe) obesity due to excess calories; F41.9 Anxiety disorder, unspecified; F32.A Depression, unspecified; I16.0 Hypertensive urgency; Z86.718 Personal history of other venous thrombosis and embolism; Z86.711 Personal history of pulmonary embolism
CPT/HCPCS: 36415; 51702; 72100; 76000; 80048; 80053; 82533; 83735; 84443; 85025; 97116; 97161; C1713; J0330; J0360; J0690; J1100; J1170; J1644; J1885; J2060; J2250; J2270; J2405; J2704; J2710; J3010; J3370; J3490; J7030; J7120

== ENCOUNTER 2023-08-27 14:43 | Inpatient (IN) | payer MEDICAID, SELFPAY ==
[2023-08-27] VITALS (9 sets, daily range): BP systolic 134–152; BP diastolic 73–111; PULSE 68–85; RESP 16–18; TEMP 36.8–36.9; O2SAT 92–99; BMI 41.1
--- NOTE | 2023-08-27 14:49 | CTR_ITS ---
PROCEDURE INFORMATION: Exam: CT Lumbar Spine Without Contrast Exam date and time: 08/27/2023 2:57 PM Age: 43 years old Clinical indication: Low back pain; Prior surgery; Surgery date: 6+ months; Surgery type: Lumbar; Additional info: Low back pain, S/P surgery TECHNIQUE: Imaging protocol: Computed tomography of the lumbar spine without contrast. Radiation optimization: All CT scans at this facility use at least one of these dose optimization techniques: automated exposure control; mA and/or kV adjustment per patient size (includes targeted exams where dose is matched to clinical indication); or iterative reconstruction. COMPARISON: CT lumbar spine wo con* [id number] 06/15/2023 3:21 AM RADIATION DOSE METRICS: Total DLP (mGy-cm): 1173.75 FINDINGS: Bones/joints: L3 through S1 fusion. Laminectomies L3-L4, L4-L5, L5-S1. Bilateral SI joint fusion. No acute fracture seen. Nonacute right-sided L1 transverse process fracture. No canal stenosis. No definite bony neural foraminal narrowing. Soft tissues: Unremarkable. CT/CT lumbar spine wo con* [id number] IMPRESSION: 1. L3 through S1 fusion. SI joint fusion. 2. No acute findings. No canal stenosis. 3. Optimal visualization compromised due to metallic artifact from spinal hardware.
--- NOTE | 2023-08-27 14:52 | ED_ITS ---
HPI - Back Pain/Injury 2 General: Chief Complaint: Back Pain/Injury Stated Complaint: Back Pain Time Seen by Provider: 08/27/23 14:45 History of Present Illness: 43-year-old female who had low back fusi on last Saturday and presents by ambulance with worsening pain in her low back and fevers. She says she was doing well initially but over the weekend started developing more pain and then started having fevers. She says it was as high as 104 last night. She is taking long- acting morphine and oxycodone says they are not helping. She can move her legs okay has no sensory deficits, but says her left leg shakes and feels weak when she stands. She denies any cough. No dysuria. Review of Systems 2 Narrative: Constitutional symptoms: Negative except as documented in HPI. Skin symptoms: Negative except as documented in HPI. Eye symptoms: Negative except as documented in HPI. ENMT symptoms: Negative except as documented in HPI. Respiratory symptoms: Negative except as documented in HPI. Cardiovascular symptoms: Negative except as documented in HPI. Gastrointestinal symptoms: Negative except as documented in HPI. Genitourinary symptoms: Negative except as documented in HPI. Musculoskeletal symptoms: Negative except as documented in HPI. Neurologic symptoms: Negative except as documented in HPI. Psychiatric symptoms: Negative except as documented in HPI. Endocrine symptoms: Negative except as documented in HPI. PFSH ED 2 PFSH: Medical History Acute viral syndrome Opioid contract exists Encounter for long-term opiate analgesic use Chronic low back pain with sciatica Rosacea History of pulmonary embolism post op, had DVT Dyslipidemia borderline by report, not on treatment Hypertension Chronic narcotic use ~ 2yrs, for back pain Obesity BMI 39 Surgical History H/O laminectomy History of carpal tunnel release left History of D&C History of hysterectomy due to life threatening bleeding while on anticoagulation for PE/DVT History of laparoscopic adjustable gastric banding History of tonsillectomy History of back surgery (~2018) History of right knee surgery (~2008) patellar realignment Family History Father Cancer pancreatic cancer Other Diabetes Heart disease Hypertension Social History (Reviewed 07/15/23 @ 10:28 by DANII Garcia Smoking and tobacco/nicotine status: current every day tobacco/nicotine user cigarettes [ Other cigarette details: .5 pack per day] and e-cigarettes E- Cigarette Details: vaporizer device and without nicotine Alcohol intake: never Substance/Drug Use: never Lives independently: Yes Household members: spouse Current occupational status: disabled Female Reproductive History: Para: 3 Spontaneous abortions: No Physical Exam 2 Narrative: EXAM NARRATIVE: General: Alert, no acute distress. Skin: Warm, dry. Head: Normocephalic, atraumatic. Neck: Supple, trachea midline. Eye: Extraocular movements are intact. Ears, nose, mouth and throat: mucosa moist. Cardiovascular: Regular, Normal peripheral perfusion. Respiratory: Lungs are clear to auscultation, respirations are non-labored, breath sounds are equal, Symmetrical chest wall expansion. Gastrointestinal: Soft, Nontender, Non distended, Normal bowel sounds. Musculoskeletal: Normal ROM, no deformity. Neurological: Alert and oriented, No focal neurological deficit observed. Psychiatric: Cooperative, appropriate mood & affect. Course 2 Vital Signs: Vital signs: Vital Signs Temperature 98.3 F 08/27/23 14:44 Pulse Rate 72 08/27/23 17:11 Respiratory Rate 16 08/27/23 15:28 Blood Pressure 151/97 08/27/23 17:11 Pulse Oximetry 92 08/27/23 17:11 Oxygen Delivery Me thod Room Air 08/27/23 17:11 MDM - Back Pain/Injury Medical Decision Making Ordered CT scan to make sure there is no large hematoma or seroma or anything postsurgical that was going on. This shows no acute process. Appropriate postsurgical changes. With patient having fevers check flu and a COVID and basic lab work. She does not have any leukocytosis. Her white count is 8. Hemoglobin is 10.9. BUN and creatinine are 17 and 0.7. Flu and COVID are negative. Labs 08/27/23 15:10 08/27/23 15:10 Radiology Impressions Lumbar Spine CT 08/27/23 14:49 IMPRESSION: 1. L3 through S1 fusion. SI joint fusion. 2. No acute findings. No canal stenosis. 3. Optimal visualization compromised due to metallic artifact from spinal hardware. Laboratory Results WBC 7.91 10^3/uL (3.29-11.43) 08/27/23 15:10 RBC 3.70 10^6/uL (3.85-5.65) L 08/27/23 15:10 Hgb 10.90 g/dL (11.27-16.99) L 08/27/23 15:10 Hct 32.8 % (36-47) L 08/27/23 15:10 MCV 88.6 fl (85-98) 08/27/23 15:10 MCH 29.5 pg (27-33) 08/27/23 15:10 MCHC 33.2 g/dL (30-55) 08/27/23 15:10 RDW 13.6 % (12.1-15.1) 08/27/23 15:10 Plt Count 228 10^3/cmm (157-399) 08/27/23 15:10 MPV 10.4 fL (7.4-10.4) 08/27/23 15:10 Neut % (Auto) 75.6 % 08/27/23 15:10 Lymph % (Auto) 13.1 % 08/27/23 15:10 [place] % (Auto) 9.4 % 08/27/23 15:10 Eos % (Auto) 0.5 % 08/27/23 15:10 Baso % (Auto) 0.5 % 08/27/23 15:10 Neut # (Auto) 5.98 10^3/uL (1.8-7.7) 08/27/23 15:10 Lymph # (Auto) 1.0 10^3/uL (0.8-4.8) 08/27/23 15:10 [place] # (Auto) 0.7 10^3/uL (0.2-0.9) 08/27/23 15:10 Eos # (Auto) 0.0 10^3/uL (0.0-0.8) 08/27/23 15:10 Baso # (Auto) 0.0 10^3/uL (0.0-0.1) 08/27/23 15:10 Nucleated RBC % (auto) 0 % 08/27/23 15:10 Nucleated RBCs # 0.0 /100WBC 08/27/23 15:10 ESR 39 mm/hr (0-15) H 08/27/23 15:10 Sodium 134 mmol/L (136-145) L 08/27/23 15:10 Potassium 3.4 mmol/L (3.5-5.1) L 08/27/23 15:10 Chloride 95 mmol/L (98-107) L 08/27/23 15:10 Carbon Dioxide 27 mmol/L (22-29) 08/27/23 15:10 Anion Gap 15.4 (5-19) 08/27/23 15:10 BUN 17 mg/dL (6-20) 08/27/23 15:10 Creatinine 0.7 mg/dL (0.5-0.9) 08/27/23 15:10 GFR Calculation 90.5 mL/min (90-130) 08/27/23 15:10 Glucose 101 mg/dL (65-115) 08/27/23 15:10 Calculated Osmolality 280 mOsm/kg (285-295) L 08/27/23 15:10 Calcium 9.1 mg/dL (8.5-10.5) 08/27/23 15:10 Total Bilirubin 0.6 mg/dL (0.15-1.2) 08/27/23 15:10 AST 39 U/L (0-32) H 08/27/23 15:10 ALT 32 U/L (0-33) 08/27/23 15:10 Alkaline Phosphatase 122 U/L (35-105) H 08/27/23 15:10 C-Reactive Protein 253.1 mg/L (0.0-4.9) H 08/27/23 15:10 Total Protein 7.2 g/dL (6.6-8.7) 08/27/23 15:10 Albumin 3.5 g/dL (3.5-5.2) 08/27/23 15:10 Globulin 3.7 g/dL (1.3-4.6) 08/27/23 15:10 Urine Color Yellow (Yellow) 08/27/23 16:26 Urine Appearance Sl hazy (CLEAR) A 08/27/23 16:26 Urine pH 6 (5-7) 08/27/23 16:26 Ur Specific [place] 1.020 (1.005-1.030) 08/27/23 16:26 Urine Protein 1+ (Negative) H 08/27/23 16:26 Urine Glucose (UA) Norm (Normal) 08/27/23 16:26 Urine Ketones 1+ (Negative) H 08/27/23 16:26 Urine Blood 2+ (Negative) H 08/27/23 16:26 Urine Nitrate Negative (Negative) 08/27/23 16:26 Urine Bilirubin 1+ (Negative) H 08/27/23 16:26 Urine Urobilinogen 4+ mg/dL (Negative) H 08/27/23 16:26 Ur Leukocyte Esterase Negative (Negative) 08/27/23 16:26 Urine RBC 0-4 /hpf (0-2) H 08/27/23 16:26 Urine WBC 0-4 /hpf (0-5) H 08/27/23 16:26 Ur Squamous Epith Cells 0-4 /hpf (0-5) H 08/27/23 16:26 Ur Transition Epith Cell 0-4 /hpf 08/27/23 16:26 Amorphous Sediment Not Reportable 08/27/23 16:26 Urine Bacteria Trace /hpf (NONE) 08/27/23 16:26 Hyaline Casts 0-4 /lpf H 08/27/23 16:26 Other Casts Wbc cast 0-4 /lpf 08/27/23 16:26 Urine Mucus 1+ /hpf 08/27/23 16:26 Influenza Type A Ag negative (Negative) 08/27/23 15:08 Influenza Type B Ag negative (Negative) 08/27/23 15:08 SARS-CoV-2 Ag (Rapid) negative (Negative) 08/27/23 15:08 All radiology interpretation(s) finalized by discharge Other Data Assessment and plan: -I discussed the patient with the Dr. Cruz who will admit the patient for observation.. - Discussed findings and plan with patient. Answered any questions. - All laboratory values were reviewed and interpreted personally by myself, the ER physician - All imaging was reviewed and interpreted personally by myself, the ER physician. - Evaluation and treatment of this problem were appropriate in the emergency setting Discharge Plan Discharge Patient Disposition: Placed in Observation Clinical Impression: Back pain Discharge Diet: Usual diet Coding Level of Care Code ED Accounts Receivable Analyst for Zabrina Burgess
[2023-08-27 15:24] LABS: Basophils % 0.5 %; Eosinophils % 0.5 %; Hematocrit 32.8 % (36-47); Lymphocytes % 13.1 %; Mean Corpuscular HGB Conc 33.2 g/dL (30-55); Mean Corpuscular Hemoglobin 29.5 pg (27-33); Mean Corpuscular Volume 88.6 fl (85-98); Mean Platelet Volume 10.4 fL (7.4-10.4); Monocytes # 0.7 10^3/uL (0.2-0.9); Monocytes % 9.4 %; Neutrophils # 5.98 10^3/uL (1.8-7.7); Neutrophils % 75.6 %; Nucleated Red Blood Cells % 0 %; Platelet Count 228 10^3/cmm (157-399); Red Cell Distribution Width 13.6 % (12.1-15.1); White Blood Count 7.91 10^3/uL (3.29-11.43)
[2023-08-27] MEDS: HYDROmorphone 1 mg/mL INJ 1 mL 2 MG IVP (15:28)
[2023-08-27 15:31] LABS: Erythrocyte Sedimentation Rate 39 mm/hr (0-15)
[2023-08-27 15:52] LABS: Influenza A by IFA negative (Negative); Influenza B by IFA negative (Negative)
[2023-08-27 15:53] LABS: SARS Covid-2 Antigen negative (Negative)
[2023-08-27 15:55] LABS: Alanine Aminotransferase 32 U/L (0-33); Albumin Level 3.5 g/dL (3.5-5.2); Alkaline Phosphatase 122 U/L (35-105); Aspartate Amino Transferase 39 U/L (0-32); Blood Urea Nitrogen 17 mg/dL (6-20); C Reactive Protein 253.1 mg/L (0.0-4.9); Calcium 9.1 mg/dL (8.5-10.5); Carbon Dioxide 27 mmol/L (22-29); Chloride 95 mmol/L (98-107); Creatinine Clr Calc Pharmacy 122.3503; Globulin 3.7 g/dL (1.3-4.6); Glomerular Filtration Rate 90.5 mL/min (90-130); Glucose 101 mg/dL (65-115); Osmolality Calculated 280 mOsm/kg (285-295); Sodium 134 mmol/L (136-145); Total Bilirubin 0.6 mg/dL (0.15-1.2); Total Protein 7.2 g/dL (6.6-8.7)
[2023-08-27 16:10] LABS: Anion Gap 15.4 (5-19); Potassium 3.4 mmol/L (3.5-5.1)
[2023-08-27 16:54] LABS: Glucose Urine UA Norm (Normal); Ketones Urine 1+ (Negative); Protein Urine 1+ (Negative); Urine Appearance SL Hazy (CLEAR); Urine Color Yellow (Yellow); pH Urine 6 (5-7)
[2023-08-27 17:01] LABS: Bilirubin Urine 1+ (Negative); Blood Urine 2+ (Negative); Leukocyte Esterase Urine Negative (Negative); Nitrate Urine Negative (Negative); Urobilinogen Urine 4+ mg/dL (Negative)
[2023-08-27 17:28] LABS: Bacteria Urine TRACE /hpf; Hyaline Casts Urine 0-4 /lpf; Mucus Urine 1+ /hpf; Other Casts Urine WBC CAST 0-4 /lpf; RBC Urine 0-4 /hpf (0-2); Squamous Epithelial Cell Urine 0-4 /hpf (0-5); Transitional Epi Cells Urine 0-4 /hpf; WBC Urine 0-4 /hpf (0-5)
[2023-08-27 17:29] LABS: Add Urine Culture? No
[2023-08-27] MEDS: dexamethasone 10 mg/mL INJ 6 MG IVP (17:51)
[2023-08-27] MEDS: morphine ER (12 HR) 15 mg Tablet PO (19:43)
[2023-08-27] MEDS: oxyCODONE 5 mg IR Tab/Cap PO (21:43)
[2023-08-28] VITALS (8 sets, daily range): BP systolic 123–145; BP diastolic 76–84; PULSE 57–66; RESP 16–20; TEMP 36.4–36.5; O2SAT 94–98
[2023-08-28] MEDS: dexamethasone 10 mg/mL INJ 6 MG IVP ×3 (01:07→16:36)
[2023-08-28] MEDS: morphine ER (12 HR) 15 mg Tablet PO ×2 (06:52→18:23)
[2023-08-28] MEDS: lisinopril 20 mg Tablet PO (08:17)
[2023-08-28] MEDS: hydroCHLOROthiazide 25 mg Tablet PO (08:17)
--- NOTE | 2023-08-28 08:28 | P.HP_ITS ---
Providers/Chief Complaint 2 Admitting Physician: Chevy Cruz DO Primary Care Provider: Sb Le DO Chief Complaint: Back Pain History of Present Illness Dolores Carlson is a 43 year old female Is postop from lumbopelvic fusion. Patient was doing well after surgery this past Saturday suddenly can put weight on her left leg. CT scan done in ER shows everything in good position. At this point will continue dexamethasone add some Valium try to get her up with physical therapy see how she does this morning and able to go home. Will reevaluate in a couple of hours. Review of Systems 2 Narrative: Constitutional symptoms: Negative except as documented in HPI. Skin symptoms: Negative except as documented in HPI. Eye symptoms: Negative except as documented in HPI. ENMT symptoms: Negative except as documented in HPI. Respiratory symptoms: Negative except as documented in HPI. Cardiovascular symptoms: Negative except as documented in HPI. Gastrointestinal symptoms: Negative except as documented in HPI. Genitourinary symptoms: Negative except as documented in HPI. Musculoskeletal symptoms: Negative except as documented in HPI. Neurologic symptoms: Negative except as documented in HPI. Psychiatric symptoms: Negative except as documented in HPI. Endocrine symptoms: Negative except as documented in HPI. Medications/Allergies Home Medications Medication Instructions Recorded Confirmed Last Taken Type bupropion HCl 300 mg 24 hr tablet, 300 mg PO QAM #30 tabs 11/13/22 08/27/23 08/26/23 Rx extended release escitalopram oxalate 20 mg tablet 20 mg PO DAILY #30 tabs 11/13/22 08/27/23 08/26/23 Rx lisinopril 20 1 tab PO DAILY #90 tabs 11/13/22 08/27/23 08/26/23 Rx mg-hydrochlorothiazide 25 mg tablet linaclotide 72 mcg capsule 72 mcg PO DAILY PRN Pain, Mild 01/01/23 08/27/23 08/26/23 History (Bita) methocarbamol 750 mg tablet 750 mg PO Q6H PRN spasms #20 tabs 06/11/23 08/27/23 08/18/23 Rx oxycodone 5 mg tablet 5 - 10 mg (1 - 2 x 5 mg) PO Q4H 08/21/23 08/27/23 08/27/23 Rx PRN pain 7 days #40 tabs morphine 15 mg tablet,extended 15 mg PO Q12H 7 days #14 tabs 08/22/23 08/27/23 08/27/23 Rx release Allergies Allergy/AdvReac Type Severity Reaction Status Date / Time adhesive tape Allergy ALGY-Rash Verified 08/27/23 14:49 hydrocodone Allergy ADR-Nausea Verified 08/27/23 14:49 metoclopramide [From Reglan] Allergy ADR-Itching Verified 08/27/23 14:49 promethazine [From Phenergan] Allergy ADR-Vomitin Verified 08/27/23 14:49 g PFSH Acute 2 PFSH: Medical History Acute viral syndrome Opioid contract exists Encounter for long-term opiate analgesic use Chronic low back pain with sciatica Rosacea History of pulmonary embolism post op, had DVT Dyslipidemia borderline by report, not on treatment Hypertension Chronic narcotic use ~ 2yrs, for back pain Obesity BMI 39 Surgical History H/O laminectomy History of carpal tunnel release left History of D&C History of hysterectomy due to life threatening bleeding while on anticoagulation for PE/DVT History of laparoscopic adjustable gastric banding History of tonsillectomy History of back surgery (~2017) History of right knee surgery (~2008) patellar realignment Family History Father Cancer pancreatic cancer Other Diabetes Heart disease Hypertension Social History Smoking and tobacco/nicotine status: current every day tobacco/nicotine user cigarettes [ Other cigarette details: .5 pack per day] and e-cigarettes E- Cigarette Details: vaporizer device and without nicotine Alcohol intake: never Substance/Drug Use: never Lives independently: Yes Household members: spouse Current occupational status: disabled Female Reproductive History: Para: 3 Spontaneous abortions: No Vitals/I&O/Wt Last Vital Signs Temp 97.5 F L 08/28/23 04:00 Pulse 65 08/28/23 04:00 Resp 16 08/28/23 04:00 BP 137/84 08/28/23 04:00 Pulse Ox 94 08/28/23 04:00 O2 Del Method Room Air 08/28/23 04:00 04/07/2008/28/23 08/28/23 22:59 06:59 14:59 Intake Total 240 / 240 60 / 60 Output Total 400 / 400 400 / 400 Balance 240 / 240 -400 / -160 -340 / -340 Weight last 48 hrs Weight 234 lb 14.4 oz Weight 240 lb Weight 240 lb Physical Exam 2 Narrative: Patient is able to stand but just cannot put weight on her left leg. Has full strength except for when she has weight on it feels like there is pain in the pelvis posteriorly. Data 08/27/23 15:10 08/27/23 15:10 A&P Assessment and plan (1) Status post lumbar spinal fusion: Will continue to monitor this morning we will reevaluate in a couple hours after she is up with physical therapy to see how she does to determine if she needs to stay or not. Attestations 2 Medical Necessity Statement*: Pain control Coding Level of Care Code Acute Code for Chg Fwd Diagnoses Status post lumbar spinal fusion Z98.1
[2023-08-28] MEDS: escitalopram 10 mg Tablet 20 MG PO (09:09)
[2023-08-28] MEDS: diazePAM 5 mg Tablet PO (09:09)
[2023-08-28] MEDS: oxyCODONE 5 mg IR Tab/Cap PO ×3 (11:02→20:20)
--- NOTE | 2023-08-28 14:03 | P.PN_ITS ---
Subjective 2 Subjective: Patient was able to walk 11 feet with physical therapy however would like to see better improvement before she goes home. Vitals/I&O/Wt Last Vital Signs Temp 97.7 F 08/28/23 12:00 Pulse 66 08/28/23 12:00 Resp 16 08/28/23 12:00 BP 123/76 08/28/23 12:00 Pulse Ox 94 08/28/23 12:00 O2 Del Method Room Air 08/28/23 04:00 08/27/23 08/28/23 08/28/23 22:59 06:59 14:59 Intake Total 240 / 240 60 / 60 Output Total 400 / 400 700 / 700 Balance 240 / 240 -400 / -160 -640 / -640 Weight last 48 hrs Weight 234 lb 14.4 oz Weight 240 lb Weight 240 lb Physical Exam 2 Narrative: Patient ambulated 11 feet with physical therapy as comfortable in bed just hurts when she puts weight on her left leg. CT scans reviewed do not show any evidence of any screws or any significant hematoma. Data 08/27/23 15:10 08/27/23 15:10 A&P Assessment and plan (1) Status post lumbar spinal fusion: Patient seems to be getting better on steroid. Will keep her for 1 more day get up with therapy tomorrow and anticipate discharge being tomorrow. Attestations 2 Medical Necessity Statement*: Pain control Coding Level of Care Code Acute Code for Chg Fwd Diagnoses Status post lumbar spinal fusion Z98.1
[2023-08-29] VITALS: BP 125/95; PULSE 52; RESP 20; TEMP 36.6; O2SAT 95
[2023-08-29 01:32] VITALS: RESP 16
[2023-08-29] MEDS: dexamethasone 10 mg/mL INJ 6 MG IVP ×2 (01:32→09:52)
[2023-08-29] MEDS: oxyCODONE 5 mg IR Tab/Cap PO ×2 (01:32→08:21)
[2023-08-29 04:35] VITALS: BP 136/83; PULSE 53; RESP 16; TEMP 37; O2SAT 96
[2023-08-29] MEDS: buPROPion XL (24 HR) 300 mg Tablet PO (05:09)
[2023-08-29] MEDS: morphine ER (12 HR) 15 mg Tablet PO (06:21)
[2023-08-29 06:58] VITALS: BP 124/77; PULSE 60; RESP 17; TEMP 36.4; O2SAT 97
[2023-08-29] MEDS: hydroCHLOROthiazide 25 mg Tablet PO (08:20)
[2023-08-29 08:21] VITALS: RESP 17
[2023-08-29] MEDS: lisinopril 20 mg Tablet PO (08:21)
[2023-08-29] MEDS: escitalopram 10 mg Tablet 20 MG PO (08:21)
--- NOTE | 2023-08-29 08:23 | PM.DCS ---
Discharge Providers Date of Admission: 08/28/23 14:08 Date of Discharge: August 29, 2023 Attending Provider at Admission: Chevy Cruz DO Attending Provider at Discharge: Chevy Cruz DO Primary Care Provider: Sb Le DO Diagnoses at Discharge Discharge Diagnosis (1) Status post lumbar spinal fusion: Status: Acute Reason for Visit Reason for Visit: Back Pain Physical Exam Narrative: Patient still having left leg pain. At this point will continue pain meds and follow-up in 1 week in clinic Discharge Data Studies Completed and Pending Completed Studies During Hospitalization Category Date Time Status CT lumbar spine wo con* [id number] Stat Cat Scan 08/27/23 14:49 Completed Radiology Impressions Lumbar Spine CT 08/27/23 14:49 IMPRESSION: 1. L3 through S1 fusion. SI joint fusion. 2. No acute findings. No canal stenosis. 3. Optimal visualization compromised due to metallic artifact from spinal hardware. Laboratory Results WBC 7.91 10^3/uL (3.29-11.43) 08/27/23 15:10 RBC 3.70 10^6/uL (3.85-5.65) L 08/27/23 15:10 Hgb 10.90 g/dL (11.27-16.99) L 08/27/23 15:10 Hct 32.8 % (36-47) L 08/27/23 15:10 MCV 88.6 fl (85-98) 08/27/23 15:10 MCH 29.5 pg (27-33) 08/27/23 15:10 MCHC 33.2 g/dL (30-55) 08/27/23 15:10 RDW 13.6 % (12.1-15.1) 08/27/23 15:10 Plt Count 228 10^3/cmm (157-399) 08/27/23 15:10 MPV 10.4 fL (7.4-10.4) 08/27/23 15:10 Neut % (Auto) 75.6 % 08/27/23 15:10 Lymph % (Auto) 13.1 % 08/27/23 15:10 [place] % (Auto) 9.4 % 08/27/23 15:10 Eos % (Auto) 0.5 % 08/27/23 15:10 Baso % (Auto) 0.5 % 08/27/23 15:10 Neut # (Auto) 5.98 10^3/uL (1.8-7.7) 08/27/23 15:10 Lymph # (Auto) 1.0 10^3/uL (0.8-4.8) 08/27/23 15:10 [place] # (Auto) 0.7 10^3/uL (0.2-0.9) 08/27/23 15:10 Eos # (Auto) 0.0 10^3/uL (0.0-0.8) 08/27/23 15:10 Baso # (Auto) 0.0 10^3/uL (0.0-0.1) 08/27/23 15:10 Nucleated RBC % (auto) 0 % 08/27/23 15:10 Nucleated RBCs # 0.0 /100WBC 08/27/23 15:10 ESR 39 mm/hr (0-15) H 08/27/23 15:10 Sodium 134 mmol/L (136-145) L 08/27/23 15:10 Potassium 3.4 mmol/L (3.5-5.1) L 08/27/23 15:10 Chloride 95 mmol/L (98-107) L 08/27/23 15:10 Carbon Dioxide 27 mmol/L (22-29) 08/27/23 15:10 Anion Gap 15.4 (5-19) 08/27/23 15:10 BUN 17 mg/dL (6-20) 08/27/23 15:10 Creatinine 0.7 mg/dL (0.5-0.9) 08/27/23 15:10 GFR Calculation 90.5 mL/min (90-130) 08/27/23 15:10 Glucose 101 mg/dL (65-115) 08/27/23 15:10 Calculated Osmolality 280 mOsm/kg (285-295) L 08/27/23 15:10 Calcium 9.1 mg/dL (8.5-10.5) 08/27/23 15:10 Total Bilirubin 0.6 mg/dL (0.15-1.2) 08/27/23 15:10 AST 39 U/L (0-32) H 08/27/23 15:10 ALT 32 U/L (0-33) 08/27/23 15:10 Alkaline Phosphatase 122 U/L (35-105) H 08/27/23 15:10 C-Reactive Protein 253.1 mg/L (0.0-4.9) H 08/27/23 15:10 Total Protein 7.2 g/dL (6.6-8.7) 08/27/23 15:10 Albumin 3.5 g/dL (3.5-5.2) 08/27/23 15:10 Globulin 3.7 g/dL (1.3-4.6) 08/27/23 15:10 Urine Color Yellow (Yellow) 08/27/23 16:26 Urine Appearance Sl hazy (CLEAR) A 08/27/23 16:26 Urine pH 6 (5-7) 08/27/23 16:26 Ur Specific [place] 1.020 (1.005-1.030) 08/27/23 16:26 Urine Protein 1+ (Negative) H 08/27/23 16:26 Urine Glucose (UA) Norm (Normal) 08/27/23 16:26 Urine Ketones 1+ (Negative) H 08/27/23 16:26 Urine Blood 2+ (Negative) H 08/27/23 16:26 Urine Nitrate Negative (Negative) 08/27/23 16:26 Urine Bilirubin 1+ (Negative) H 08/27/23 16:26 Urine Urobilinogen 4+ mg/dL (Negative) H 08/27/23 16:26 Ur Leukocyte Esterase Negative (Negative) 08/27/23 16:26 Urine RBC 0-4 /hpf (0-2) H 08/27/23 16:26 Urine WBC 0-4 /hpf (0-5) H 08/27/23 16:26 Ur Squamous Epith Cells 0-4 /hpf (0-5) H 08/27/23 16:26 Ur Transition Epith Cell 0-4 /hpf 08/27/23 16:26 Amorphous Sediment Not Reportable 08/27/23 16:26 Urine Bacteria Trace /hpf (NONE) 08/27/23 16:26 Hyaline Casts 0-4 /lpf H 08/27/23 16:26 Other Casts Wbc cast 0-4 /lpf 08/27/23 16:26 Urine Mucus 1+ /hpf 08/27/23 16:26 Influenza Type A Ag negative (Negative) 08/27/23 15:08 Influenza Type B Ag negative (Negative) 08/27/23 15:08 SARS-CoV-2 Ag (Rapid) negative (Negative) 08/27/23 15:08 Vitals Last Vital Signs Temp 97.6 F 08/29/23 06:58 Pulse 60 08/29/23 06:58 Resp 17 08/29/23 06:58 BP 124/77 08/29/23 06:58 Pulse Ox 97 08/29/23 06:58 O2 Del Method Room Air 08/29/23 06:58 Discharge Plan Discharge Patient Disposition: Home Condition: Stable Prescriptions: New morphine 15 mg tablet extended release 15 mg PO Q12H 7 Days Qty: 14 0RF oxycodone 5 mg tablet 5 - 10 mg PO Q4H PRN (Reason: pain) 7 Days Qty: 40 0RF Valium 5 mg tablet 5 mg PO Q8H PRN (Reason: muscle spasm) 7 Days Qty: 21 0RF Continued lisinopril-hydrochlorothiazide 20-25 mg tablet 1 tab PO DAILY Qty: 90 2RF escitalopram oxalate 20 mg tablet 20 mg PO DAILY Qty: 30 5RF bupropion HCl 300 mg tablet extended release 24 hr 300 mg PO QAM Qty: 30 5RF Linzess 72 mcg capsule 72 mcg PO DAILY PRN (Reason: Pain, Mild) morphine 15 mg tablet extended release 15 mg PO Q12H 7 Days Qty: 14 0RF methocarbamol 750 mg tablet 750 mg PO Q6H PRN (Reason: spasms) Qty: 20 0RF oxycodone 5 mg tablet 5 - 10 mg PO Q4H PRN (Reason: pain) 7 Days Qty: 40 0RF Discharge Orders: Discharge Order (Routine); Ordered 08/29/23 Ordered By: Chevy Cruz Referrals: Sb Le DO [Primary Care Provider] - 09/05/23 8:30 am Discharge Diet: As Directed Discharge Activity: Limit activity as instructed Patient Instructions: Opioid Safety Activity Restrictions/Additional Instructions: Thank you for [facility] for your care! The following is a list of instructions, from your provider, to follow upon your discharge to ensure you have the optimal recovery from your recent injury orsurgery. Follow-up care is a gerard part of your treatment and safety. Be sure to make and go to all appointments, and call your doctor if you are having problems. If you do not already have a follow-up appointment made, call Dr. Cruz office in the next 1-3 days to make follow up appointment for 1 weeks at [phone]. It is also a good idea to know your test results and keep a list of the medicines you take. Medications will be prescribed for you at your provider's discretion. These medications are to be used as instructed; if they are taken more often that prescribed they will not be refilled early and in most cases will not be refilled at all. > When a refill is needed,you should contact oscar duncan 2-3 business days before your prescription runs out. Medications will NOT be refilled by technical solution architect providers after hours! > Many pain medications contain Tylenol (Acetaminophen). Do not consume more than 4,000 mg of Tylenol per day in total with any combination ofmedications. > Pain medications can cause constipation. Please use an over the counter stool softener as directed, while taking pain medications. Consulty our local pharmacist with questions or recommendations on stool softeners. If constipation persists, contact our office or your primary care provider. > While under our care,you are not to receive pain medications or other controlled substances from any other provider unless our office is notified and approves. Any attempts to do so will result in refusal to prescribe any further pain medications and possible dismissal from our practice. ? Your wound and/or dressing should remain clean and dry for 7 days after surgery. On postoperative day 7 we will change in clinic ? Walking is essential for the healing process after surgery. We would like you to slowly advance your walking. This should be done on relatively flat clear ground (inside or out) or can be done on a treadmill. Remember this goal does not have to happen all at once, slowly increase your distance and duration. This can be broken into more more than one walk per day as tolerated. Patients who walk as directed after surgery rarely require Physical Therapy. In the unlikely event this issue arises your provider will direct hospital staff to make the appropriate arrangements. ? No lifting over 5 pounds {a gallon of milk) or bending/twisting until further notice. Each of these activities places an unnecessary amount of stress onto the body and can impede the delicate healing process. > Instead of bending at the waist, keep your back straight and bend at the knees. > Instead of twisting your torso, keep your back straight and turn your entire body with your feet. ? You may sleep in any position which makes you comfortable. Many patients find comfort sleeping in a reclining chair. It is not abnormal to have difficulty sleeping for the first several weeks following your surgery. We recommend trying Benadry! or Tylenol PM as directed to help with your sleeping difficulties. Both medications are over the counter and available withoutprescription. ? NO SMOKING!!! Smoking dramatically increases the probability of developing postoperative wound infections. ? Common complaints after lumbar and/or thoracic spine surgery include, but are not limited to: numbness and/or tingling in the legs, pain around the incision and surrounding tissues, muscle spasms, or stiffness of the middle to low back. Contact our office if these symptoms persist or if an acute change occurs. ? No driving for the first 3-5days, and not while taking narcotics [] until seen at your follow-up appointment and cleared. There are no restrictions for riding on short trips, however if you take a longer trip, arrangements should be made to make regular stops to get out of the vehicle and stretch . ? Swelling is an unfortunate event that will take place with any surgery and is the primary source of your postoperative discomfort. While walking and regular approved activities helps control inflammation, there are additional steps you can take to minimizeswelling. > Place ice over the surgical site and surrounding tissue for twenty minutes, followed by applying a low/medium heat (heating pad) for an additional twenty minutes every 1-2 hours as needed for painrelief. > You may use of over the counter anti-inflammatory medications (Ibuprofen, Motrin, Aleve, Advil, etc) as directed on the package label. These types of medicines wm significantly reduce the amount of discomfort you experience after surgery from swelling. It should be noted that if you have and allergy to any of these medications, or a history of ulcers or kidney disease you should consult you primary care provider prior to starting these medications. Discharge Attestations Time Spent in Discharge Care*: less than 30 min Quality Metrics Clinical Quality Measures [ No reported AMI, CVA or VTE this stay] Coding Level of Care Code Acute Code for Chg Fwd Diagnoses Status post lumbar spinal fusion Z98.1
[2023-08-29 13:35] VITALS: RESP 17
== END 2023-08-29 13:37 | disposition home or self-care (01) | DRG 552 ==
LOC: ER 17:42 → MEDSURG 18:33
PROVIDERS: Admitting Provider Orthopaedic Surgery; Emergency Provider Emergency Medicine; PCP Family Medicine; Visit Provider Orthopaedic Surgery
DX: M54.89 Other dorsalgia (principal); M79.605 Pain in left leg; R50.9 Fever, unspecified; Z98.890 Other specified postprocedural states; I10 Essential (primary) hypertension
CPT/HCPCS: 72131; 80053; 81001; 85025; 85651; 86140; 87426; 87804; 96374; 97110; 97116; 97161; 97530; 99285; G0378; J1100; J1170

== ENCOUNTER → 2023-09-05 14:53 | Outpatient (BNVA) | payer MEDICAID, SELFPAY | PROVIDERS: PCP Family Medicine; Visit Provider Orthopaedic Surgery | DX: Z98.1 Arthrodesis status (principal) | CPT/HCPCS: 99024 ==

== ENCOUNTER 2023-09-13 14:42 | Outpatient (CLI) | payer MEDICAID, SELFPAY ==
--- NOTE | 2023-09-13 14:30 | MRR_ITS ---
PROCEDURE INFORMATION: Exam: MR Lumbar Spine Without Contrast Exam date and time: 09/13/2023 3:20 PM Age: 43 years old Clinical indication: Low back pain; Prior surgery; Surgery date: <1 month; Surgery type: Si joint; Patient HX: Patient unable to walk after surgery; Additional info: Back pain, pa #[id number] TECHNIQUE: Imaging protocol: Magnetic resonance imaging of the lumbar spine without contrast. COMPARISON: CT lumbar spine wo con* [id number] 08/27/2023 2:57 PM FINDINGS: Bones/joints: Alignment is normal. L3 through S1 fusion. Susceptibility artifact from hardware obscures visualization through these regions. Spinal cord: Conus terminates normally at L1. L1-L2: No disc herniation. No spinal stenosis. No neural foraminal narrowing. L2-L3: Mild bulge and mild facet hypertrophy. L3-L4: Fused level. No stenosis or neural foraminal narrowing. There is some peripheral clumping of nerve roots from approximately L3-L4 through L5-S1 raising question of arachnoiditis. L4-L5: Fused level with laminectomy. No stenosis. Mild bilateral neural foraminal narrowing. L5-S1: Midline subcutaneous fluid collection noted spanning L3-L4 through L5-S1 centered on the L4-L5 laminectomy. Separate fluid collection located just superficial to the laminectomy defect also centered at L4-L5. A definite communication between this collection and the canal not seen but cannot be excluded. Fused level. No neural foraminal narrowing. Soft tissues: See L5-S1 finding. MR/MR lumbar spine wo con* [id number] IMPRESSION: 1. Midline subcutaneous fluid collection noted spanning L3-L4 through L5-S1 centered on the L4-L5 laminectomy. Separate fluid collection located just superficial to the laminectomy defect also centered at L4-L5. A definite communication between this collection and the canal not seen but cannot be excluded. Consider abscess versus seroma versus CSF collection. 2. There is some peripheral clumping of nerve roots from approximately L3-L4 through L5-S1 raising question of arachnoiditis.
== END 2023-09-13 14:43 | disposition home or self-care (01) ==
LOC: RAD 14:43
PROVIDERS: PCP Family Medicine; Visit Provider Orthopaedic Surgery
DX: M54.50 Low back pain, unspecified (principal); Z98.890 Other specified postprocedural states
CPT/HCPCS: 72148

== ENCOUNTER → 2023-09-17 11:00 | Outpatient (BNVA) | payer MEDICAID, SELFPAY | PROVIDERS: PCP Family Medicine; Visit Provider Orthopaedic Surgery | DX: M54.9 Dorsalgia, unspecified (principal); Z98.1 Arthrodesis status | CPT/HCPCS: 73521; 99024 ==

== ENCOUNTER → 2023-09-19 16:57 | Outpatient (BNVA) | payer MEDICAID, SELFPAY | PROVIDERS: PCP Family Medicine; Visit Provider Specialist | DX: Z98.1 Arthrodesis status (principal); M54.16 Radiculopathy, lumbar region; M79.604 Pain in right leg | CPT/HCPCS: 95860; 99202 ==

== ENCOUNTER 2023-09-20 12:30 | Observation (INO) | payer MEDICAID, SELFPAY ==
[2023-09-20] VITALS (21 sets, daily range): BP systolic 105–143; BP diastolic 61–83; PULSE 60–92; RESP 12–18; TEMP 36.2–36.7; O2SAT 95–99; BMI 37.3
--- NOTE | 2023-09-20 08:38 | P.ANESASSM_ITS ---
Pre-Anesthetic Assessment Height/Weight: Height 1.65 m Preop Diagnosis: Right leg pain postoperatively Operation Date: 09/20/23 09:15 Proposed Procedures p Revision Lumbar Spine(Not Applicable) - Chevy Cruz DO s Exploratory Back/Spine(Not Applicable) - Chevy Cruz DO Familial anesthetic complications: None Was Beta Hector taken within 24 hours: N/A Was Clonidine taken within 24 hours: N/A Last intake: > 8hrs Social Tobacco and No alcohol Exam alert, oriented x 3, clear to auscultation bilaterally and regular rate & rhythm Airway Mallampati: Class II Dentition: chipped (front teeth) CV/HEM Hypertension Anesthetic Plan ASA status: 2 Anesthesia: General Risk of > 500 ml blood loss (7ml/kg in children): No Medications/Allergies Home Medications Medication Instructions Recorded Confirmed Last Taken Type bupropion HCl 300 mg 24 hr tablet, 300 mg PO QAM #30 tabs 11/13/22 09/19/23 09/19/23 Rx extended release escitalopram oxalate 20 mg tablet 20 mg PO DAILY #30 tabs 11/13/22 09/19/23 09/19/23 Rx lisinopril 20 1 tab PO DAILY #90 tabs 11/13/22 09/19/23 09/19/23 Rx mg-hydrochlorothiazide 25 mg tablet linaclotide 72 mcg capsule 72 mcg PO DAILY PRN Pain, Mild 01/01/23 09/19/23 08/26/23 History (Linzess) methocarbamol 750 mg tablet 750 mg PO Q6H PRN spasms #20 tabs 06/11/23 09/19/23 08/18/23 Rx diazepam 5 mg tablet (Valium) 5 mg PO TID PRN muscle spasm 7 09/05/23 09/19/23 09/19/23 Rx days #21 tabs ondansetron 4 mg disintegrating 4 mg PO Q8H PRN nausea and 09/05/23 09/19/23 Unknown Rx tablet vomiting #90 tabs morphine 15 mg tablet,extended 15 mg PO Q12H 7 days #14 tabs 09/12/23 09/19/23 09/19/23 Rx release Wheel chair #1 ea 09/17/23 09/19/23 Unknown Rx oxycodone 5 mg tablet 5 mg PO Q4H PRN pain 7 days #40 09/19/23 09/19/23 Unknown Rx tabs Allergies Allergy/AdvReac Type Severity Reaction Status Date / Time adhesive tape Allergy ALGY-Rash Verified 09/19/23 16:58 hydrocodone Allergy ADR-Nausea Verified 09/19/23 16:58 metoclopramide [From Reglan] Allergy ADR-Itching Verified 09/19/23 16:58 promethazine [From Phenergan] Allergy ADR-Vomitin Verified 09/19/23 16:58 g PFSH Anesthesia Medical History Acute viral syndrome Opioid contract exists Encounter for long-term opiate analgesic use Chronic low back pain with sciatica Rosacea History of pulmonary embolism post op, had DVT Dyslipidemia borderline by report, not on treatment Hypertension Chronic narcotic use ~ 2yrs, for back pain Obesity BMI 39 Surgical History H/O laminectomy History of carpal tunnel release left History of D&C History of hysterectomy due to life threatening bleeding while on anticoagulation for PE/DVT History of laparoscopic adjustable gastric banding History of tonsillectomy History of back surgery (~2017) History of right knee surgery (~2008) patellar realignment Family History Father Cancer pancreatic cancer Other Diabetes Heart disease Hypertension Social History Smoking and tobacco/nicotine status: current every day tobacco/nicotine user cigarettes [ Other cigarette details: .5 pack per day] and e-cigarettes E- Cigarette Details: vaporizer device and without nicotine Alcohol intake: never Substance/Drug Use: never Lives independently: Yes Household members: spouse Current occupational status: disabled Female Reproductive History Para: 3 Spontaneous abortions: No Data Anesthesia Cardiac Studies: No Data to Display
[2023-09-20] MEDS: sodium chloride 0.9% 1,000 ML 30 ML IV (08:48)
--- NOTE | 2023-09-20 08:50 | W.PM.OPSUD ---
Surgery/Procedure H&P Update DATE OF PROCEDURE: September 20, 2023 DATE H&P PERFORMED: 09/17/23 H&P UPDATE INFORMATION: I have reviewed H&P completed within last 30 days, I have examined patient prior to procedure and No changes to prior documentation PREOP DIAGNOSIS: Right leg pain postoperatively PLANNED PROCEDURE: Operation Date: 09/20/23 09:15 Proposed Procedures p Revision Lumbar Spine(Not Applicable) - DO angie Leal Exploratory Back/Spine(Not Applicable) - Chevy Cruz DO
[2023-09-20] MEDS: ceFAZolin 2,000 MG in sodium chloride 0.9% (plus) 50 ML 100 MG IV ×2 (09:13→17:25)
[2023-09-20] MEDS: vancomycin 1,000 MG SDV 1000 MG XX (09:56)
[2023-09-20] MEDS: lidocaine-epi 1% 20 mL INJ INJECTION (09:57)
--- NOTE | 2023-09-20 10:39 | SUR.OPER ---
per OR Rand Butter, Cas Hirsch RN, pt has an 1/2 dollar size pressure ulcer on sacrum, area is red and blanches. Surgeon notified
[2023-09-20] MEDS: HYDROmorphone 1 mg/mL INJ 1 mL 0.5 MG IVP (10:40)
[2023-09-20] MEDS: ketorolac 30 mg/mL INJ IVP (11:02)
[2023-09-20] MEDS: oxyCODONE 5 mg IR Tab/Cap PO ×2 (11:29→15:49)
--- NOTE | 2023-09-20 12:30 | ANE.PACU2 ---
Inpatient post-anesthesia follow up: Airway intact: Yes Vital signs: Temperature 97.4 F Pulse Rate 92 Respiratory Rate 16 Blood Pressure 113/62 Pulse Oximetry 96 Oxygen Delivery Me thod Nasal Cannula Oxygen Flow Rate 2 Fraction of Inspir ed Oxygen Hydration adequate: Yes Nausea and vomiting: No Pain level: 1 Mental status: Baseline
[2023-09-20] MEDS: lactated ringers 1,000 ML 90 ML IV (13:42)
--- NOTE | 2023-09-20 13:57 | PM.OP ---
Operative Report Date of procedure: September 20, 2023 Pre-op diagnosis: Painful hardware Post-op diagnosis: same Procedure done: Removal of right iliac screw removal of deep hardware Surgeon: Chevy Cruz DO Estimated blood loss (mL): 5 Procedure: Removal of deep hardware from right iliac crest. Patient brought the operative suite after undergoing seizures placed in the prone position all areas impingement well-padded. Patient's prepped draped normal sterile fashion. Skin incision made using previous incision the distal end of it. Thoracolumbar fascia was split the right side was exposed the right iliac and S1 screw was identified. Metal cutting bur was used to cut the shaun. Once the shaun was cut then the caps removed from the screw and the screw shaun was removed and then the screw was removed. Wound was irrigated cultures were taken vancomycin powder was placed deep drain was placed and wound was closed in layered fashion with 0 Vicryl 2-0 Vicryl Monocryl suture. Sterile dressings were applied patient transferred to the PACU in stable addition.
[2023-09-20] MEDS: docusate sodium 100 mg Capsule PO (17:25)
[2023-09-20] MEDS: morphine 4 mg/mL SDV 1 mL 2 MG IVP (18:18)
[2023-09-20] MEDS: morphine ER (12 HR) 15 mg Tablet PO (20:37)
[2023-09-21] VITALS (9 sets, daily range): BP systolic 113–133; BP diastolic 63–84; PULSE 54–77; RESP 15–20; TEMP 36.6–36.8; O2SAT 94–97; BMI 37.3
[2023-09-21] MEDS: morphine 4 mg/mL SDV 1 mL 2 MG IVP ×2 (00:16→05:55)
[2023-09-21] MEDS: lactated ringers 1,000 ML 90 ML IV (00:18)
[2023-09-21] MEDS: ceFAZolin 2,000 MG in sodium chloride 0.9% (plus) 50 ML 100 MG IV ×2 (00:19→08:19)
[2023-09-21] MEDS: oxyCODONE 5 mg IR Tab/Cap PO ×2 (04:03→10:45)
[2023-09-21] MEDS: buPROPion XL (24 HR) 300 mg Tablet PO (05:53)
[2023-09-21] MEDS: morphine ER (12 HR) 15 mg Tablet PO (08:18)
[2023-09-21] MEDS: docusate sodium 100 mg Capsule PO (08:18)
[2023-09-21] MEDS: escitalopram 10 mg Tablet 20 MG PO (08:19)
[2023-09-21] MEDS: lisinopril 20 mg Tablet PO (08:25)
--- NOTE | 2023-09-21 10:41 | PM.DCS ---
Discharge Providers Date of Admission: 09/20/23 12:30 Date of Discharge: September 21, 2023 Attending Provider at Admission: Chevy Cruz DO Attending Provider at Discharge: Chevy Cruz DO Primary Care Provider: Sb Le DO Reason for Visit Reason for Visit: Z98.1 Physical Exam Narrative: Patient sitting up at bedside says the pain is better than before surgery but still having pain. Urinary Catheter Management: Thompson: Cath Placed During This Visit: yes Reason for Continuing Indwelling Catheter: Perioperative Use in Selected Surgeries Urinary Catheter Date of Insertion: 09/20/23 Urinary Catheter Time of Insertion: 15:29 Discharge Data Studies Completed and Pending Pending at discharge Category Date Time Status C-arm Fluoroscopy [id number] Routine Exams 09/20/23 07:58 Ordered Anaerobic Culture Routine Lab 09/20/23 09:45 Results Wound Culture and Gram Stain Routine Lab 09/20/23 09:45 Results Vitals Last Vital Signs Temp 98.3 F 09/21/23 04:19 Pulse 61 09/21/23 07:47 Resp 16 09/21/23 05:55 BP 133/72 09/21/23 04:19 Pulse Ox 97 09/21/23 07:47 O2 Del Method Room Air 09/21/23 07:47 O2 Flow Rate 2 09/20/23 14:16 Discharge Plan Discharge Patient Disposition: Home Condition: Stable Prescriptions: Continued lisinopril-hydrochlorothiazide 20-25 mg tablet 1 tab PO DAILY Qty: 90 2RF escitalopram oxalate 20 mg tablet 20 mg PO DAILY Qty: 30 5RF bupropion HCl 300 mg tablet extended release 24 hr 300 mg PO QAM Qty: 30 5RF Linzess 72 mcg capsule 72 mcg PO DAILY PRN (Reason: Pain, Mild) ondansetron 4 mg tablet,disintegrating 4 mg PO Q8H PRN (Reason: nausea and vomiting) Qty: 90 0RF diazepam [Valium] 5 mg tablet 5 mg PO TID PRN (Reason: muscle spasm) 7 Days Qty: 21 0RF morphine 15 mg tablet extended release 15 mg PO Q12H 7 Days Qty: 14 0RF (DME) Wheel chair See Rx Instructions .Route .MEDSUPPLY Qty: 1 0RF Rx Instructions: As directed oxycodone 5 mg tablet 5 mg PO Q4H PRN (Reason: pain) 7 Days Qty: 40 0RF methocarbamol 750 mg tablet 750 mg PO Q6H PRN (Reason: spasms) Qty: 20 0RF Discharge Orders: Discharge Order (Routine); Ordered 09/21/23 Ordered By: Chevy Cruz Referrals: Sb Le DO [Primary Care Provider] - Discharge Diet: Advance as tolerated Discharge Activity: Limit activity as instructed Patient Instructions: Opioid Safety Activity Restrictions/Additional Instructions: Thank you for [facility] for your care! The following is a list of instructions, from your provider, to follow upon your discharge to ensure you have the optimal recovery from your recent injury orsurgery. Follow-up care is a gerard part of your treatment and safety. Be sure to make and go to all appointments, and call your doctor if you are having problems. If you do not already have a follow-up appointment made, call Dr. Cruz office in the next 1-3 days to make follow up appointment for 1 weeks at [phone]. It is also a good idea to know your test results and keep a list of the medicines you take. Medications will be prescribed for you at your provider's discretion. These medications are to be used as instructed; if they are taken more often that prescribed they will not be refilled early and in most cases will not be refilled at all. > When a refill is needed,you should contact oscar duncan 2-3 business days before your prescription runs out. Medications will NOT be refilled by energy conservation representative providers after hours! > Many pain medications contain Tylenol (Acetaminophen). Do not consume more than 4,000 mg of Tylenol per day in total with any combination ofmedications. > Pain medications can cause constipation. Please use an over the counter stool softener as directed, while taking pain medications. Consulty our local pharmacist with questions or recommendations on stool softeners. If constipation persists, contact our office or your primary care provider. > While under our care,you are not to receive pain medications or other controlled substances from any other provider unless our office is notified and approves. Any attempts to do so will result in refusal to prescribe any further pain medications and possible dismissal from our practice. ? Your wound and/or dressing should remain clean and dry for 2 days after surgery. On postoperative day 2 (48 hours after your surgery) the dressing (if present) should be removed and it is okay to shower and get the incision wet. Pad dry afterwards. No further dressing should be required from that point on. Do not put any creams or ointments on theincision > It is normal for there to be a small amount of discharge (bloody or blood tinged) present from a surgical wound for the first 1-3days. > The wound should be examined twice a day for signs of infection. Mild redness or bruising is to be expected but indications that an infection maybe starting would include; An increase in redness, swelling, or discharge, a foul odor present around the incision, and/or a fever greater than 101 ?F ? Showering is permitted, however we ask that you do not take a bath, sit in a whirlpool / Jacuzzi, or go swimming for 1 month. For only the first 2 days after surgery, lt wilt be necessary for you to cover your wound/dressing with plastic and tape to keep it dry. ? Walking is essential for the healing process after surgery. We would like you to slowly advance your walking. This should be done on relatively flat clear ground (inside or out) or can be done on a treadmill. Remember this goal does not have to happen all at once, slowly increase your distance and duration. This can be broken into more more than one walk per day as tolerated. Patients who walk as directed after surgery rarely require Physical Therapy. In the unlikely event this issue arises your provider will direct hospital staff to make the appropriate arrangements. ? No lifting over 5 pounds {a gallon of milk) or bending/twisting until further notice. Each of these activities places an unnecessary amount of stress onto the body and can impede the delicate healing process. > Instead of bending at the waist, keep your back straight and bend at the knees. > Instead of twisting your torso, keep your back straight and turn your entire body with your feet. ? You may sleep in any position which makes you comfortable. Many patients find comfort sleeping in a reclining chair. It is not abnormal to have difficulty sleeping for the first several weeks following your surgery. We recommend trying Benadry! or Tylenol PM as directed to help with your sleeping difficulties. Both medications are over the counter and available withoutprescription. ? NO SMOKING!!! Smoking dramatically increases the probability of developing postoperative wound infections. ? Common complaints after lumbar and/or thoracic spine surgery include, but are not limited to: numbness and/or tingling in the legs, pain around the incision and surrounding tissues, muscle spasms, or stiffness of the middle to low back. Contact our office if these symptoms persist or if an acute change occurs. ? No driving for the first 3-5days, and not while taking narcotics [] until seen at your follow-up appointment and cleared. There are no restrictions for riding on short trips, however if you take a longer trip, arrangements should be made to make regular stops to get out of the vehicle and stretch . ? Swelling is an unfortunate event that will take place with any surgery and is the primary source of your postoperative discomfort. While walking and regular approved activities helps control inflammation, there are additional steps you can take to minimizeswelling. > Place ice over the surgical site and surrounding tissue for twenty minutes, followed by applying a low/medium heat (heating pad) for an additional twenty minutes every 1-2 hours as needed for painrelief. > You may use of over the counter anti-inflammatory medications (Ibuprofen, Motrin, Aleve, Advil, etc) as directed on the package label. These types of medicines wm significantly reduce the amount of discomfort you experience after surgery from swelling. It should be noted that if you have and allergy to any of these medications, or a history of ulcers or kidney disease you should consult you primary care provider prior to starting these medications. Discharge Attestations Time Spent in Discharge Care*: less than 30 min Quality Metrics Clinical Quality Measures [ No reported AMI, CVA or VTE this stay] Coding Level of Care Code Acute Code for Chg Aditya
--- NOTE | 2023-09-21 11:41 | PC.NURSE ---
Hemovac drained removed this am. Nothing in drain to dump.
--- NOTE | 2023-09-21 12:37 | PC.NURSE ---
Discussed discharge instructions, follow up appointments, call after two business days if offices have not called you. Continue regular medications. No new medications to home on. Patient verbalized understanding. Catheter was pull this am.
== END 2023-09-21 13:00 | disposition home or self-care (01) ==
LOC: MEDSURG 12:38
PROVIDERS: Admitting Provider Orthopaedic Surgery; PCP Family Medicine; Visit Provider Orthopaedic Surgery
PROC: (CPT 22830; principal; 2023-09-20 08:55)
PROC: (CPT 20680; 2023-09-20 08:55)
DX: T84.84XA Pain due to internal orthopedic prosthetic devices, implants and grafts, initial encounter (principal); E78.5 Hyperlipidemia, unspecified; I10 Essential (primary) hypertension; E66.9 Obesity, unspecified; Z68.37 Body mass index [BMI] 37.0-37.9, adult; F17.210 Nicotine dependence, cigarettes, uncomplicated
CPT/HCPCS: 20680; 51702; 87070; 87075; 87077; 87186; 87205; 97163; G0378; J0131; J0330; J0690; J1100; J1170; J1200; J1885; J2250; J2270; J2405; J2704; J2710; J3010; J3370; J3490; J7030; J7120

== ENCOUNTER → 2023-09-24 12:32 | Day surgery (SDC) | payer MEDICAID, SELFPAY ==
--- NOTE | 2023-09-24 12:25 | XR_ITS ---
WS: [id number] XR chest 1V portable [id number] REASON FOR EXAM: Post PICC insertion FINDINGS: A PICC line has been placed from the right arm. The tip of the catheter is located in the distal supe rior vena cava. The chest is otherwise unchanged compared to 03/21/2022. XR/XR chest 1V portable [id number] IMPRESSION: Right arm PICC line in proper position. PICC line position confirmed with the microbiology technologist over the phone at 1:22 p.m.
[2023-09-24 12:45] VITALS: BP 127/88; PULSE 68; RESP 18; TEMP 36.7; O2SAT 95
[2023-09-24] MEDS: vancomycin 1,000 MG in sodium chloride 0.9% 250 ML 250 MG IV (13:38)
--- NOTE | 2023-09-24 14:13 | PICC.NOTE ---
Single lumen PICC placed to right basilic vein. Referred to vascular access nurse for PICC placement due to need for IV antibiotics x 6 weeks. Risks and benefits discussed and informed consent obtained from patient. Right arm assessed with right basilic vein measuring 4.7 mm, straight, and apparent best choice for placement. Using sterile technique and MST, right basilic vein accessed x 1 stick. Mid-arm circumference measured 10 cm from right AC 41 cm. Trimmed cath 49 cm with 0 cm external length noted. CXR shows tip in distal SVC, in good position for use per radiologist. Line secured with stat-lock. Insertion site covered with Biopatch and TSM. Pt to return to [facility] tomorrow for PICC dressing change and infusion.
--- NOTE | 2023-09-24 14:16 | PC.NURSE ---
Vancomycin 1 gm IV given as ordered with PICC insertion order. While patient receiving infusion, Dr. Cruz's office called stating IV antibiotic to change to Rocephin. Pt will start Rocephin tomorrow at [facility].
== END ==
PROVIDERS: PCP Family Medicine; Visit Provider Orthopaedic Surgery
DX: Z98.890 Other specified postprocedural states (principal); Z45.2 Encounter for adjustment and management of vascular access device
CPT/HCPCS: 36573; 71045; 96365; J3370; J7050

== ENCOUNTER 2023-10-17 19:53 | Emergency (ER) | payer MEDICAID, SELFPAY ==
[2023-10-17 20:09] VITALS: BP 136/82; PULSE 71; RESP 16; TEMP 36.6; O2SAT 97
--- NOTE | 2023-10-17 21:00 | ED_ITS ---
HPI - Extremity Problem General: Chief complaint: Extremity Problem,Nontraumatic Stated complaint: Swelling around pik line on right arm Time Seen by Provider: 10/17/23 20:59 History of Present Illness: Patient presents to the ER today with complaints of redness and pain at her PICC line site in her right bicipital region. Patient has had this for about the last week. Patient gets weekly infusions and had an infusion earlier today. The PICC line is working fine and her Blood counts are going down. Patient has had this PICC line in for 4 weeks due to what sounds like an infection of her spine. She sees Dr. Marisol Garcia. Patient just wanted to have another set of eyes on to see if everything was looking good or if it needed to come out. Review of Systems General: Reports: 10 or more systems reviewed and unremarkable except in HPI and below PFSH ED PFSH: Medical History Acute viral syndrome Opioid contract exists Encounter for long-term opiate analgesic use Chronic low back pain with sciatica Rosacea History of pulmonary embolism post op, had DVT Dyslipidemia borderline by report, not on treatment Hypertension Chronic narcotic use ~ 2yrs, for back pain Obesity BMI 39 Surgical History H/O laminectomy History of carpal tunnel release left History of D&C History of hysterectomy due to life threatening bleeding while on anticoagulation for PE/DVT History of laparoscopic adjustable gastric banding History of tonsillectomy History of back surgery (~2018) History of right knee surgery (~2008) patellar realignment Family History Father Cancer pancreatic cancer Other Diabetes Heart disease Hypertension Social History Smoking and tobacco/nicotine status: current every day tobacco/nicotine user cigarettes [ Other cigarette details: .5 pack per day] and e-cigarettes E- Cigarette Details: vaporizer device and without nicotine Alcohol intake: never Substance/Drug Use: never Lives independently: Yes Household members: spouse Current occupational status: disabled Female Reproductive History: Para: 3 Spontaneous abortions: No Physical Exam Neck/C-Spine: COMMON NORMALS: no JVD Chest: COMMONS NORMALS: normal inspection of the chest and normal palpation of entire chest wall Resp: COMMON NORMALS: normal respiratory effort, No retractions, No use of accessory muscles and clear to auscultation bilaterally AUSCULTATION: clear to auscultation bilaterally Cardio: COMMON NORMALS: no JVD, regular rate, regular rhythm, S1 normal heart sound present, S2 normal heart sound present, No gallops present (Cardio), No clicks present (Cardio), No murmurs present (Cardio) and No rub (Cardio) RATE: regular rate RHYTHM: regular rhythm HEART SOUNDS: S1 normal heart sound present and S2 normal heart sound present GI: COMMON NORMALS: Normal to inspection, nondistended, normoactive bowel sounds present, Soft to palpation and No hepatosplenomegaly present PALPATION: Yes Soft to palpation and Yes No hepatosplenomegaly present Extremity: NARRATIVE EXTREMITY EXAM: PICC line site and right medial bicep looks and feels good other than slight adhesive type irritation but this is minimal. Course Vital Signs: Vital signs: Vital Signs Temperature 97.9 F 10/17/23 20:09 Pulse Rate 71 10/17/23 20:09 Respiratory Rate 16 10/17/23 20:09 Blood Pressure 136/82 10/17/23 20:09 Pulse Oximetry 97 10/17/23 20:09 Oxygen Delivery Me thod Room Air 10/17/23 20:09 MDM - Extremity (Nontraumatic) Medical Decision Making Physical exam showed adhesive type irritation to PICC line site but no obvious abnormality. Patient will be referred back to her PCP, Dr. Garcia, Dr. Damon for further evaluation and treatment. Medical Records I reviewed the patient's medical records. Lab Data I reviewed the patient's lab results. No radiology studies performed this visit Discharge Plan Discharge Patient Disposition: Home Clinical Impression: Skin irritation Condition: Stable Prescriptions: No Action lisinopril-hydrochlorothiazide 20-25 mg tablet 1 tab PO DAILY Qty: 90 3RF escitalopram oxalate 20 mg tablet 20 mg PO DAILY Qty: 30 5RF bupropion HCl 300 mg tablet extended release 24 hr 300 mg PO QAM Qty: 30 5RF Linzess 72 mcg capsule 72 mcg PO DAILY PRN (Reason: Pain, Mild) ceftriaxone 1 gram recon soln 2 g IV DAILY diazepam [Valium] 5 mg tablet 5 mg PO TID PRN (Reason: muscle spasm) 7 Days Qty: 21 0RF morphine 15 mg tablet extended release 15 mg PO Q12H 7 Days Qty: 14 0RF ondansetron 4 mg tablet,disintegrating 4 mg PO Q8H PRN (Reason: nausea and vomiting) Qty: 90 0RF oxycodone 5 mg tablet 5 mg PO Q4H PRN (Reason: pain) 7 Days Qty: 40 0RF methocarbamol 750 mg tablet 750 mg PO Q6H PRN (Reason: spasms) Qty: 20 0RF Discharge Orders: Discharge ED (Routine); Ordered 10/17/23 Ordered By: Mata Hicks Referrals: Sb Le DO [Primary Care Provider] - 1 week Patient Instructions: Dermatitis (ED) Activity Restrictions/Additional Instructions: Upon physical exam no abnormality was noted to your right arm or PICC line site other than skin irritation probably due to the adhesive. Please follow-up with Dr. Garcia as regularly scheduled you may try to keep calling her office to arrange this appointment sooner. Coding Level of Care Code ED Lockstitch Pocket Setter for Zabrina Burgess
== END 2023-10-17 21:38 | disposition home or self-care (01) ==
PROVIDERS: Emergency Provider Emergency Medicine; PCP Family Medicine
DX: L98.8 Other specified disorders of the skin and subcutaneous tissue (principal); F17.210 Nicotine dependence, cigarettes, uncomplicated; F17.290 Nicotine dependence, other tobacco product, uncomplicated; E78.5 Hyperlipidemia, unspecified; I10 Essential (primary) hypertension
CPT/HCPCS: 99281

== ENCOUNTER 2023-10-18 10:41 | Emergency (ER) | payer MEDICAID, SELFPAY ==
[2023-10-18 10:53] VITALS: BP 113/83; PULSE 61; RESP 17; TEMP 36.7; O2SAT 98
--- NOTE | 2023-10-18 11:26 | USCV_ITS ---
Dolores Carlson Age: 43 Gender: F : 1980 Exam Date: 10/18/2023 11:46 Ordering Phys: Suzan Hoffman Technologist: Lonnie Fields Exam Location: [facility] [place]_ Indication: picc line- swelling pain PROCEDURES: Venous duplex imaging was performed in only the right upper extremity. The following venous structures were evaluated: internal jugular vein, subclavian vein, axillary vein, and brachial veins. In addition, the basilic vein, cephalic vein, radial vein, and ulnar vein. Serial compression, augmentation maneuvers, and spectral Doppler flow evaluation were performed. FINDINGS: Acute right axillary vein DVT. DVT associated with the PICC line. All other veins appear free of thrombus at this time. CONCLUSIONS Acute DVT right axillary vein, associated with the PICC line. Dr. Ilana Vila DO (Electronically Signed) Final Date: 18 Oct 2023 12:35 S
--- NOTE | 2023-10-18 11:26 | XRR_ITS ---
PROCEDURE INFORMATION: Exam: XR Chest Exam date and time: 10/18/2023 12:23 PM Age: 43 years old Clinical indication: Device placement; Picc; Prior surgery; Surgery date: 6+ months; Surgery type: Back; Additional info: Picc line placement TECHNIQUE: Imaging protocol: Radiologic exam of the chest. Views: 1 view. COMPARISON: CR XR chest 1V portable [id number] 09/24/2023 1:17 PM FINDINGS: Tubes, catheters and devices: PICC line enters from the right and terminates in the SVC. Lungs: Minimal linear atelectasis at the lateral left lung base. Pleural spaces: Unremarkable. No pleural effusion. No pneumothorax. Heart/Mediastinum: Unremarkable. No cardiomegaly. Bones/joints: Unremarkable. XR/XR chest 1V portable [id number] IMPRESSION: No acute findings.
--- NOTE | 2023-10-18 11:27 | ED_ITS ---
HPI - Extremity Problem General: Chief complaint: General Medical Stated complaint: PICC line issues Time Seen by Provider: 10/18/23 11:08 Source: patient Mode of arrival: ambulatory Limitations: no limitations History of Present Illness: Patient is a 43-year-old female here with concerns of swelling to her right upper arm. She states she had a PICC line placed approximately 4 weeks ago to receive IV antibiotics/Rocephin following a positive wound/hardware culture from back surgery by Dr. Cruz. She has been getting her infusions over at the oncology center. She states she showed up there for her infusion today and they measured the circumference of her arm and stated it was larger than it was previously and was concerned for possible DVT. Patient states her PICC line is still functioning well. No fevers. She was here recently for some mild redness related to tape surrounding the PICC. Denies shortness of breath or difficulty breathing. MD Complaint: extremity swelling Onset (ago): day(s) Pain Consistency: constant Location: right and upper extremity Radiation: none Relieving factors: nothing Associated symptoms: Reports no associated symptoms; Deny chest pain or fever(s) Context: recent surgery/procedure (PICC line placement) and history of DVT Review of Systems Const: Denies: fever(s), chills, body aches, fatigue or malaise Card: Denies: chest pain, palpitations, syncope or pre-syncope Resp: Denies: dyspnea or hemoptysis GI: Denies: abdominal pain Musc: Reports: extremity pain and extremity swelling; Denies: joint pain or joint swelling Neuro: Denies: numbness in extremities, weakness in extremities or sensory changes PFS ED PFSH: Medical History Acute viral syndrome Opioid contract exists Encounter for long-term opiate analgesic use Chronic low back pain with sciatica Rosacea History of pulmonary embolism post op, had DVT Dyslipidemia borderline by report, not on treatment Hypertension Chronic narcotic use ~ 2yrs, for back pain Obesity BMI 39 Surgical History H/O laminectomy History of carpal tunnel release left History of D&C History of hysterectomy due to life threatening bleeding while on anticoagulation for PE/DVT History of laparoscopic adjustable gastric banding History of tonsillectomy History of back surgery (~2018) History of right knee surgery (~2008) patellar realignment Family History Father Cancer pancreatic cancer Other Diabetes Heart disease Hypertension Social History Smoking and tobacco/nicotine status: current every day tobacco/nicotine user cigarettes [ Other cigarette details: .5 pack per day] and e-cigarettes E- Cigarette Details: vaporizer device and without nicotine Alcohol intake: never Substance/Drug Use: never Lives independently: Yes Household members: spouse Current occupational status: disabled Female Reproductive History: Para: 3 Spontaneous abortions: No Physical Exam Const: COMMON NORMALS: no acute distress, patient oriented x3, no limitations, alert and well nourished GENERAL APPEARANCE: cooperative Resp: COMMON NORMALS: normal respiratory effort and clear to auscultation bilaterally AUSCULTATION: clear to auscultation bilaterally Cardio: COMMON NORMALS: regular rate and regular rhythm RATE: regular rate RHYTHM: regular rhythm Extremity: COMMON NORMALS: full ROM, capillary refill normal, no clubbing, cyanosis or edema and no pedal edema NARRATIVE EXTREMITY EXAM: PICC line to right upper extremity appears clean and well-dressed without evidence for infection. I do not appreciate obvious swelling. N/V intact GENERAL: Yes normal exam except as noted Neuro: COMMON NORMALS: patient oriented x3, moves all extremities, no focal motor deficits and no sensory deficits noted SENSORIUM/ORIENTATION: Yes alert Skin: COMMON NORMALS: no rashes or lesions noted GENERAL SKIN EXAM: no rashes or lesions noted Course Vital Signs: Vital signs: Vital Signs Temperature 98.1 F 10/18/23 10:53 Pulse Rate 61 10/18/23 10:53 Respiratory Rate 17 10/18/23 10:53 Blood Pressure 113/83 10/18/23 10:53 Pulse Oximetry 98 10/18/23 10:53 Oxygen Delivery Me thod Room Air 10/18/23 10:53 MDM - Extremity (Nontraumatic) Medical Decision Making CXR confirms continued placement of PICC. Her US does show a DVT in her axillary vein. According to UpToDate guidelines and after speaking to PICC RN at the infusion center, Mary-the general guidelines are to leave the PICC even in the presence of a DVT if it is clinically necessary and it is still functioning. We were able to contact Dr. Garcia who will be back in office on Saturday and is agreeable to see the patient then and determine the necessity of the PICC going forward. Patient will be placed on Eliquis for the DVT. Case reviewed by Dr. Williamson who agrees with care plan here. Return to ED precautions given. She was given her Rocephin infusion prior to discharge. Medical Records I reviewed the patient's medical records. Lab Data I reviewed the patient's lab results. Radiology Impressions Chest X-Ray 10/18/23 11:26 IMPRESSION: No acute findings. All radiology interpretation(s) finalized by discharge Discharge Plan Discharge Patient Disposition: Home Clinical Impression: Acute deep vein thrombosis (DVT) of axillary vein of right upper extremity Condition: Stable Prescriptions: New Eliquis 5 mg tablet 5 mg PO BID Qty: 74 0RF Rx Instructions: Take two tabs (10mg) PO BID x 7 days then one tab (5mg) PO BID thereafter No Action lisinopril-hydrochlorothiazide 20-25 mg tablet 1 tab PO DAILY Qty: 90 3RF escitalopram oxalate 20 mg tablet 20 mg PO DAILY Qty: 30 5RF bupropion HCl 300 mg tablet extended release 24 hr 300 mg PO QAM Qty: 30 5RF Linzess 72 mcg capsule 72 mcg PO DAILY PRN (Reason: Pain, Mild) ceftriaxone 1 gram recon soln 2 g IV DAILY diazepam [Valium] 5 mg tablet 5 mg PO TID PRN (Reason: muscle spasm) 7 Days Qty: 21 0RF morphine 15 mg tablet extended release 15 mg PO Q12H 7 Days Qty: 14 0RF ondansetron 4 mg tablet,disintegrating 4 mg PO Q8H PRN (Reason: nausea and vomiting) Qty: 90 0RF oxycodone 5 mg tablet 5 mg PO Q4H PRN (Reason: pain) 7 Days Qty: 40 0RF methocarbamol 750 mg tablet 750 mg PO Q6H PRN (Reason: spasms) Qty: 20 0RF Discharge Orders: Discharge ED (Routine); Ordered 10/18/23 Ordered By: Suzan Hoffman Referrals: Sb Le DO [Primary Care Provider] - Patient Instructions: Apixaban (By mouth) (Eliquis), Deep Vein Thrombosis (DC) Activity Restrictions/Additional Instructions: As we discussed you were found to have a DVT/blood clot in your axillary vein. As we discussed the current guidelines are to leave your PICC line even in the presence of a DVT if it is clinically necessary and still functioning. You will be meeting with our infectious disease specialist, Dr. Garcia on Saturday to determine the clinical necessity. I am placing you on anticoagulation/blood thinners at this time. You need to return to the emergency department for worsening arm pain, redness, warmth, worsening swelling, any shortness of breath or chest pain or difficulty breathing, or any other concerns you may have. Coding Level of Care Code ED Barrel Painter for Zabrina Burgess
[2023-10-18] MEDS: cefTRIAXone 2,000 MG in sodium chloride 0.9% (plus) 50 ML 100 MG IV (13:19)
[2023-10-18 14:02] VITALS: BP 115/81; PULSE 59; RESP 16; TEMP 36.7; O2SAT 99
== END 2023-10-18 14:05 | disposition home or self-care (01) ==
PROVIDERS: Emergency Provider Physician Assistant; PCP Family Medicine
DX: I82.621 Acute embolism and thrombosis of deep veins of right upper extremity (principal); F17.210 Nicotine dependence, cigarettes, uncomplicated; F17.290 Nicotine dependence, other tobacco product, uncomplicated; E78.5 Hyperlipidemia, unspecified; I10 Essential (primary) hypertension
CPT/HCPCS: 71045; 93971; 99284; J0696

== ENCOUNTER 2023-10-24 06:17 | Outpatient (CLI) | payer MEDICAID, SELFPAY ==
--- NOTE | 2023-10-24 06:15 | USCV_ITS ---
Dolores Carlson Age: 43 Gender: F : 1980 Exam Date: 10/24/2023 06:26 Ordering Phys: Kim Garcia MD Technologist: [place] [facility] [place] hx of dvt in rt axilla around pic line and proximal to the pic line. PROCEDURES: Venous duplex imaging was performed in only the right upper extremity. The following venous structures were evaluated: internal jugular vein, subclavian vein, axillary vein, and brachial veins. In addition, the basilic vein, cephalic vein, radial vein, and ulnar vein. FINDINGS: No evidence of deep vein thrombosis or superficial thrombophlebitis in the right upper extremity. The clot in the rt axilla is gone CONCLUSIONS No evidence of thrombus of the right upper extremity veins. Previous clot right axillary vein has resolved Comp 10/18/23 Nico Morataya MD (Electronically Signed) Final Date: 24 Oct 2023 08:58 S
== END 2023-10-24 06:18 | disposition home or self-care (01) ==
LOC: RAD 06:17
PROVIDERS: PCP Family Medicine; Visit Provider Student in an Organized Health Care Education/Training Program
DX: I82.621 Acute embolism and thrombosis of deep veins of right upper extremity (principal)
CPT/HCPCS: 93971

== ENCOUNTER 2023-10-25 09:30 | Oncology outpatient (recurring) (ONCR) | payer MEDICAID, SELFPAY ==
[2023-09-25 11:10] VITALS: BP 127/74; PULSE 61; RESP 18; TEMP 36.4; O2SAT 97
[2023-09-25] MEDS: cefTRIAXone 2,000 MG in sodium chloride 0.9% (plus) 50 ML 100 MG IV (11:26)
[2023-09-25 11:27] LABS: Basophils # 0.1 10^3/uL (0.0-0.1); Basophils % 0.6 %; Eosinophils # 0.5 10^3/uL (0.0-0.8); Hematocrit 33.6 % (36-47); Lymphocytes # 3.7 10^3/uL (0.8-4.8); Lymphocytes % 41.7 %; Mean Corpuscular Volume 90.3 fl (85-98); Mean Platelet Volume 9.8 fL (7.4-10.4); Monocytes # 0.6 10^3/uL (0.2-0.9); Neutrophils # 4.03 10^3/uL (1.8-7.7); Neutrophils % 44.9 %; Nucleated Red Blood Cells % 0 %; Platelet Count 317 10^3/cmm (157-399); Red Blood Count 3.72 10^6/uL (3.85-5.65); Red Cell Distribution Width 14.3 % (12.1-15.1); White Blood Count 8.97 10^3/uL (3.29-11.43)
[2023-09-25 11:40] LABS: Alanine Aminotransferase 12 U/L (0-33); Albumin Level 3.6 g/dL (3.5-5.2); Alkaline Phosphatase 120 U/L (35-105); Anion Gap 14.7 (5-19); Aspartate Amino Transferase 20 U/L (0-32); Blood Urea Nitrogen 13 mg/dL (6-20); Calcium 8.7 mg/dL (8.5-10.5); Carbon Dioxide 25 mmol/L (22-29); Chloride 104 mmol/L (98-107); Globulin 3.5 g/dL (1.3-4.6); Glomerular Filtration Rate 90.5 mL/min (90-130); Glucose 138 mg/dL (65-115); Osmolality Calculated 292 mOsm/kg (285-295); Potassium 3.7 mmol/L (3.5-5.1); Sodium 140 mmol/L (136-145); Total Bilirubin 0.3 mg/dL (0.15-1.2); Total Protein 7.1 g/dL (6.6-8.7)
[2023-09-25 12:08] VITALS: BP 112/72; PULSE 82; RESP 16; TEMP 36.2; O2SAT 96
[2023-09-26 09:47] VITALS: BP 130/76; PULSE 72; RESP 18; TEMP 36.7; O2SAT 96
[2023-09-26] MEDS: cefTRIAXone 2,000 MG in sodium chloride 0.9% (plus) 50 ML 100 MG IV (09:49)
[2023-09-26 10:21] VITALS: BP 113/60; PULSE 89; RESP 18; TEMP 36.8; O2SAT 96
[2023-09-28 09:49] VITALS: BP 131/82; PULSE 64; RESP 17; TEMP 36.6; O2SAT 95
[2023-09-28] MEDS: cefTRIAXone 2,000 MG in sodium chloride 0.9% (plus) 50 ML 100 MG IV (09:50)
[2023-09-28 10:32] VITALS: BP 116/82; PULSE 64; RESP 17; TEMP 36.8; O2SAT 97
[2023-09-29 09:32] VITALS: BP 123/82; PULSE 64; RESP 17; TEMP 36.1; O2SAT 94
[2023-09-29] MEDS: cefTRIAXone 2,000 MG in sodium chloride 0.9% (plus) 50 ML 100 MG IV (09:35)
[2023-09-29 10:01] VITALS: BP 131/82; PULSE 60; RESP 18; TEMP 36.6; O2SAT 97
[2023-09-30 09:58] VITALS: BP 145/84; PULSE 57; RESP 16; TEMP 36.4; O2SAT 95
[2023-09-30 10:00] VITALS: BP 145/84; PULSE 57; RESP 16; TEMP 36.4; O2SAT 95
[2023-09-30] MEDS: cefTRIAXone 2,000 MG in sodium chloride 0.9% (plus) 50 ML 100 MG IV (10:03)
[2023-09-30 10:40] VITALS: BP 140/76; PULSE 57; RESP 18; TEMP 36.4; O2SAT 94
[2023-10-01] MEDS: cefTRIAXone 2,000 MG in sodium chloride 0.9% (plus) 50 ML 100 MG IV (10:18)
[2023-10-01 10:20] VITALS: BP 116/76; PULSE 60; RESP 16; TEMP 36.8; O2SAT 93
--- NOTE | 2023-10-01 10:22 | PC.NURSE ---
MAR Documentation Patient receiving 6 weeks of IV Rocephin. MAR reflected first dose to be given 09/24/23, however patient received first dose on 09/25/23. Patient missed Rocephin dose on 09/27/23. MAR was reflecting that patient missed 09/29/23 and 09/30/23 doses. MAR documentation was corrected to reflect doses given on correct dates from 10/01/23 on.
[2023-10-02 09:13] VITALS: BP 108/72; PULSE 61; RESP 18; TEMP 36.4; O2SAT 98
[2023-10-02] MEDS: cefTRIAXone 2,000 MG in sodium chloride 0.9% (plus) 50 ML 100 MG IV (09:15)
[2023-10-02 09:45] VITALS: BP 123/84; PULSE 67; RESP 16; TEMP 36.7; O2SAT 98
[2023-10-03] MEDS: cefTRIAXone 2,000 MG in sodium chloride 0.9% (plus) 50 ML 100 MG IV (09:43)
[2023-10-03 09:48] VITALS: BP 121/79; PULSE 55; RESP 16; TEMP 36.8; O2SAT 94
[2023-10-03 10:18] LABS: Basophils # 0.1 10^3/uL (0.0-0.1); Basophils % 0.9 %; Eosinophils # 0.3 10^3/uL (0.0-0.8); Eosinophils % 4.1 %; Hematocrit 32.5 % (36-47); Lymphocytes # 3.4 10^3/uL (0.8-4.8); Lymphocytes % 43.4 %; Mean Corpuscular HGB Conc 31.1 g/dL (30-55); Mean Corpuscular Hemoglobin 28.1 pg (27-33); Mean Corpuscular Volume 90.3 fl (85-98); Monocytes # 0.4 10^3/uL (0.2-0.9); Neutrophils % 46.3 %; Nucleated Red Blood Cells % 0 %; Platelet Count 241 10^3/cmm (157-399); Red Cell Distribution Width 14.8 % (12.1-15.1); White Blood Count 7.77 10^3/uL (3.29-11.43)
[2023-10-03 10:41] LABS: Alanine Aminotransferase 9 U/L (0-33); Albumin Level 3.5 g/dL (3.5-5.2); Alkaline Phosphatase 106 U/L (35-105); Anion Gap 15.7 (5-19); Aspartate Amino Transferase 12 U/L (0-32); Blood Urea Nitrogen 8 mg/dL (6-20); Calcium 9.1 mg/dL (8.5-10.5); Carbon Dioxide 24 mmol/L (22-29); Chloride 105 mmol/L (98-107); Globulin 3.5 g/dL (1.3-4.6); Glomerular Filtration Rate 90.5 mL/min (90-130); Glucose 88 mg/dL (65-115); Osmolality Calculated 290 mOsm/kg (285-295); Potassium 3.7 mmol/L (3.5-5.1); Sodium 141 mmol/L (136-145); Total Bilirubin 0.3 mg/dL (0.15-1.2)
[2023-10-04] MEDS: cefTRIAXone 2,000 MG in sodium chloride 0.9% (plus) 50 ML 100 MG IV (10:00)
[2023-10-04 10:08] VITALS: BP 133/86; PULSE 59; RESP 16; TEMP 36.8; O2SAT 94
[2023-10-04 10:32] VITALS: BP 150/96; PULSE 56; RESP 16; O2SAT 95
[2023-10-05] MEDS: cefTRIAXone 2,000 MG in sodium chloride 0.9% (plus) 50 ML 100 MG IV (09:47)
[2023-10-05 10:19] VITALS: BP 169/103; PULSE 64; RESP 16; TEMP 36.6; O2SAT 98
--- NOTE | 2023-10-05 10:20 | PC.NURSE ---
patient arrived for antibiotic today. Bp was up 169/103. Patient stated she did not take bp med this am. Informed patient to take meds when she arrives back home.
[2023-10-06] MEDS: cefTRIAXone 2,000 MG in sodium chloride 0.9% (plus) 50 ML 100 MG IV (09:52)
[2023-10-06 09:57] VITALS: BP 140/89; PULSE 54; RESP 17; TEMP 36.4; O2SAT 99
[2023-10-07 09:37] VITALS: BP 162/98; PULSE 60; RESP 18; O2SAT 98
[2023-10-07] MEDS: cefTRIAXone 2,000 MG in sodium chloride 0.9% (plus) 50 ML 100 MG IV (09:43)
[2023-10-07 10:13] VITALS: BP 142/85; PULSE 55; RESP 16; O2SAT 96
[2023-10-08 09:55] VITALS: BP 130/84; PULSE 74; RESP 16; O2SAT 98
[2023-10-08] MEDS: cefTRIAXone 2,000 MG in sodium chloride 0.9% (plus) 50 ML 100 MG IV (09:56)
[2023-10-09 09:52] VITALS: BP 140/92; PULSE 62; RESP 18; TEMP 36.6; O2SAT 96
[2023-10-09] MEDS: cefTRIAXone 2,000 MG in sodium chloride 0.9% (plus) 50 ML 100 MG IV (09:58)
[2023-10-09 10:41] VITALS: BP 125/85; PULSE 67; RESP 17; TEMP 36.4; O2SAT 98
[2023-10-10] MEDS: cefTRIAXone 2,000 MG in sodium chloride 0.9% (plus) 50 ML 100 MG IV (09:56)
[2023-10-10 10:47] VITALS: BP 133/91; PULSE 55; RESP 18; TEMP 36.4; O2SAT 96
[2023-10-10 10:55] LABS: Basophils # 0.1 10^3/uL (0.0-0.1); Basophils % 0.9 %; Eosinophils # 0.4 10^3/uL (0.0-0.8); Eosinophils % 6.4 %; Hematocrit 33.6 % (36-47); Lymphocytes # 2.5 10^3/uL (0.8-4.8); Mean Corpuscular HGB Conc 30.7 g/dL (30-55); Mean Corpuscular Hemoglobin 27.7 pg (27-33); Mean Corpuscular Volume 90.3 fl (85-98); Mean Platelet Volume 10.9 fL (7.4-10.4); Monocytes # 0.5 10^3/uL (0.2-0.9); Neutrophils # 3.04 10^3/uL (1.8-7.7); Neutrophils % 46.5 %; Nucleated Red Blood Cells % 0 %; Platelet Count 199 10^3/cmm (157-399); Red Blood Count 3.72 10^6/uL (3.85-5.65); Red Cell Distribution Width 14.9 % (12.1-15.1); White Blood Count 6.53 10^3/uL (3.29-11.43)
[2023-10-10 11:13] LABS: Alanine Aminotransferase 10 U/L (0-33); Albumin Level 3.6 g/dL (3.5-5.2); Alkaline Phosphatase 102 U/L (35-105); Anion Gap 13.4 (5-19); Aspartate Amino Transferase 14 U/L (0-32); Blood Urea Nitrogen 9 mg/dL (6-20); Calcium 8.6 mg/dL (8.5-10.5); Carbon Dioxide 25 mmol/L (22-29); Chloride 105 mmol/L (98-107); Globulin 3.2 g/dL (1.3-4.6); Glomerular Filtration Rate 108.1 mL/min (90-130); Glucose 116 mg/dL (65-115); Osmolality Calculated 290 mOsm/kg (285-295); Potassium 3.4 mmol/L (3.5-5.1); Sodium 140 mmol/L (136-145); Total Bilirubin 0.2 mg/dL (0.15-1.2); Total Protein 6.8 g/dL (6.6-8.7)
[2023-10-11 09:53] VITALS: BP 129/80; PULSE 61; RESP 16; TEMP 36.2; O2SAT 96
[2023-10-11] MEDS: cefTRIAXone 2,000 MG in sodium chloride 0.9% (plus) 50 ML 100 MG IV (09:55)
[2023-10-11 10:33] VITALS: BP 134/87; PULSE 58; RESP 18; TEMP 36.2; O2SAT 95
[2023-10-12 09:45] VITALS: BP 95/60; PULSE 57; RESP 16; TEMP 36.2; O2SAT 95
[2023-10-12] MEDS: cefTRIAXone 2,000 MG in sodium chloride 0.9% (plus) 50 ML 100 MG IV (09:54)
[2023-10-13 09:45] VITALS: BP 118/81; PULSE 66; RESP 18; TEMP 36.4; O2SAT 99
[2023-10-13] MEDS: cefTRIAXone 2,000 MG in sodium chloride 0.9% (plus) 50 ML 100 MG IV (10:01)
[2023-10-14 09:46] VITALS: BP 141/87; PULSE 70; RESP 18; TEMP 37.1; O2SAT 97
[2023-10-14] MEDS: cefTRIAXone 2,000 MG in sodium chloride 0.9% (plus) 50 ML 100 MG IV (09:56)
[2023-10-14 10:30] VITALS: BP 142/83; PULSE 57; RESP 18; TEMP 36.7; O2SAT 95
[2023-10-15 10:06] VITALS: BP 108/72; PULSE 67; RESP 16; TEMP 36.6; O2SAT 95
[2023-10-15] MEDS: cefTRIAXone 2,000 MG in sodium chloride 0.9% (plus) 50 ML 100 MG IV (10:43)
[2023-10-15 11:28] VITALS: BP 103/67; PULSE 87; RESP 17; TEMP 37.1; O2SAT 97
[2023-10-16 09:47] VITALS: BP 115/83; PULSE 67; RESP 18; TEMP 36.2; O2SAT 97
[2023-10-16] MEDS: cefTRIAXone 2,000 MG in sodium chloride 0.9% (plus) 50 ML 100 MG IV (09:49)
[2023-10-16 10:20] VITALS: BP 135/82; PULSE 61; RESP 16; TEMP 37; O2SAT 97
[2023-10-17 10:24] VITALS: BP 136/84; PULSE 74; RESP 18; TEMP 36.9; O2SAT 96
[2023-10-17] MEDS: cefTRIAXone 2,000 MG in sodium chloride 0.9% (plus) 50 ML 100 MG IV (10:28)
[2023-10-17 10:39] LABS: Basophils # 0.1 10^3/uL (0.0-0.1); Basophils % 0.9 %; Eosinophils # 0.5 10^3/uL (0.0-0.8); Eosinophils % 7.3 %; Lymphocytes # 2.7 10^3/uL (0.8-4.8); Lymphocytes % 39.2 %; Mean Corpuscular HGB Conc 31.1 g/dL (30-55); Mean Corpuscular Hemoglobin 27.9 pg (27-33); Mean Corpuscular Volume 89.8 fl (85-98); Mean Platelet Volume 10.5 fL (7.4-10.4); Monocytes # 0.4 10^3/uL (0.2-0.9); Monocytes % 6.3 %; Neutrophils # 3.17 10^3/uL (1.8-7.7); Neutrophils % 46.2 %; Nucleated Red Blood Cells % 0 %; Platelet Count 199 10^3/cmm (157-399); Red Blood Count 4.01 10^6/uL (3.85-5.65); Red Cell Distribution Width 14.8 % (12.1-15.1); White Blood Count 6.86 10^3/uL (3.29-11.43)
[2023-10-17 10:58] LABS: Alanine Aminotransferase 12 U/L (0-33); Albumin Level 3.6 g/dL (3.5-5.2); Alkaline Phosphatase 110 U/L (35-105); Aspartate Amino Transferase 19 U/L (0-32); Blood Urea Nitrogen 13 mg/dL (6-20); Carbon Dioxide 25 mmol/L (22-29); Chloride 105 mmol/L (98-107); Globulin 3.6 g/dL (1.3-4.6); Glomerular Filtration Rate 108.1 mL/min (90-130); Glucose 98 mg/dL (65-115); Osmolality Calculated 288 mOsm/kg (285-295); Sodium 139 mmol/L (136-145); Total Bilirubin 0.4 mg/dL (0.15-1.2); Total Protein 7.2 g/dL (6.6-8.7)
[2023-10-17 11:00] LABS: Anion Gap 12.7 (5-19); Potassium 3.7 mmol/L (3.5-5.1)
[2023-10-18 09:59] VITALS: BP 119/77; PULSE 60; RESP 16; TEMP 36.3; O2SAT 92
--- NOTE | 2023-10-18 11:09 | PC.NURSE ---
Patient to infusion suite for next dose of IV antibiotics, patient reports significant pain around PICC insertion site, redness noted and swelling noted. Arm circumference was 40cm yesterday with dressing change and today circumference was noted to be 44cm. Patient denies fever. Patient was instructed to go to ER for further evaluation due to her providers being out of office and not able to assess PICC. Patient agrees to plan of care.
[2023-10-19] MEDS: cefTRIAXone 2,000 MG in sodium chloride 0.9% (plus) 50 ML 100 MG IV (09:34)
[2023-10-19 09:51] VITALS: BP 130/74; PULSE 69; RESP 18; TEMP 36.6; O2SAT 96
[2023-10-20] MEDS: cefTRIAXone 2,000 MG in sodium chloride 0.9% (plus) 50 ML 100 MG IV (09:40)
[2023-10-20 09:46] VITALS: BP 146/95; PULSE 75; RESP 18; TEMP 36.1; O2SAT 100
[2023-10-21 09:35] VITALS: BP 133/102; PULSE 69; RESP 18; TEMP 36.3; O2SAT 98
[2023-10-21] MEDS: cefTRIAXone 2,000 MG in sodium chloride 0.9% (plus) 50 ML 100 MG IV (09:43)
[2023-10-22 09:47] VITALS: BP 127/63; PULSE 63; RESP 16; TEMP 36.4; O2SAT 97
[2023-10-22] MEDS: cefTRIAXone 2,000 MG in sodium chloride 0.9% (plus) 50 ML 100 MG IV (10:05)
--- NOTE | 2023-10-22 10:08 | PC.NURSE ---
PICC Line Patient scheduled today for Rocephin infusion. Patient was seen at [facility] ED on 10/18/23, for DVT associated with left PICC line. This nurse reviewed ED documentation stating that PICC line is still patent and intact for Rocephin infusion today. Patient stated she was given Rocephin infusion in ED on Saturday10/18/23. This nurse documented MAR to reflect appropriately.
[2023-10-22 10:40] VITALS: BP 113/76; PULSE 58; RESP 16; TEMP 36.6; O2SAT 98
[2023-10-22 13:49] LABS: Erythrocyte Sedimentation Rate 26 mm/hr (0-15)
== END 2023-10-25 23:59 | disposition home or self-care (01) ==
PROVIDERS: Orthopaedic Surgery; Student in an Organized Health Care Education/Training Program; PCP Family Medicine; Visit Provider Internal Medicine Medical Oncology
DX: Z53.9 Procedure and treatment not carried out, unspecified reason (principal)
CPT/HCPCS: 36415; 36592; 72100; 80053; 85025; 85651; 86140; 96365; 99024; 99205; J0696

== ENCOUNTER → 2023-10-25 11:58 | Outpatient (BNVA) | payer MEDICAID, SELFPAY | PROVIDERS: PCP Family Medicine; Visit Provider Student in an Organized Health Care Education/Training Program | DX: Z98.890 Other specified postprocedural states (principal); I82.A11 Acute embolism and thrombosis of right axillary vein | CPT/HCPCS: 99214 ==

== ENCOUNTER → 2023-10-29 14:17 | Outpatient (BNVA) | payer MEDICAID, SELFPAY | PROVIDERS: PCP Family Medicine; Visit Provider Orthopaedic Surgery | DX: M54.9 Dorsalgia, unspecified (principal); Z98.1 Arthrodesis status | CPT/HCPCS: 99024 ==

== ENCOUNTER 2024-03-24 17:10 | Emergency (ER) | payer MEDICAID, SELFPAY ==
[2024-03-24 17:31] VITALS: BP 164/96; PULSE 72; RESP 18; TEMP 36.8; O2SAT 97
[2024-03-24 19:12] VITALS: BP 183/118; PULSE 67; RESP 18; O2SAT 99
--- NOTE | 2024-03-24 19:20 | ED_ITS ---
HPI - Back Pain/Injury General: Chief Complaint: Back Pain/Injury Stated Complaint: low back, hip pain Time Seen by Provider: 03/24/24 18:59 Source: patient Mode of arrival: ambulatory Limitations: no limitations History of Present Illness: Patient is a 43-year-old female presenting to the emergency department complaining of right lower back pain acute on chronic for years. She reports history of multiple back surgeries, last was in September where she had hardware removed due to an infection. States she was post be in a wheelchair for months, but due to her sick and needing to care for him, she thinks she exerted herself too much. Specifically she notes having significant increase in pain over the past few weeks after 1 specific time where she lifted him from bed to wheelchair. Pain is radiating down the right lower extremity. She takes morphine and is on a pain contract, states she is thinking this is not helping anymore. No bowel or bladder incontinence, fevers, nausea or vomiting, distal paralysis, or other symptoms to report. Reporting 8/10 pain at this time. MD elicited complaint: back pain Pertinent past history: prior back pain and back surgery Onset (ago): month(s) Timing: constant Severity: severe Pain scale (0-10): 8 Similar Symptoms Previously: Yes Location: right lower back Radiation: right upper leg Exacerbating factors: movement and walking Relieving factors: immobilization Associated symptoms: Deny abdominal pain, chills, fever(s), nausea or vomiting Related Data Home Medications Medication Instructions Recorded Confirmed linaclotide 72 mcg capsule 72 mcg PO DAILY PRN Pain, Mild 01/01/23 01/22/24 (Linzess) Previous Rx's Medication Instructions Recorded lisinopril 20 1 tab PO DAILY #90 tabs 10/09/23 mg-hydrochlorothiazide 25 mg tablet ondansetron 4 mg disintegrating 4 mg PO Q8H PRN nausea and 10/14/23 tablet vomiting #90 tabs apixaban 5 mg tablet (Eliquis) 5 mg PO BID #60 tabs 11/12/23 bupropion HCl 300 mg 24 hr tablet, 300 mg PO QAM #30 tabs 01/22/24 extended release morphine 15 mg tablet,extended 15 mg PO Q12H PRN back pain 7 days 01/22/24 release #14 tabs oxycodone 5 mg tablet 5 mg PO Q4H PRN pain 7 days #40 01/29/24 tabs escitalopram oxalate 20 mg tablet 20 mg PO DAILY #30 tabs 03/06/24 diazepam 5 mg tablet (Valium) 5 mg PO TID PRN muscle spasm 7 03/12/24 days #21 tabs methocarbamol 750 mg tablet 750 mg PO Q8H 5 days #15 tabs 03/24/24 prednisone 20 mg tablet 60 mg (3 x 20 mg) PO ONCE 5 days 03/24/24 #15 tabs Allergies Allergy/AdvReac Type Severity Reaction Status Date / Time adhesive tape Allergy ALGY-Rash Verified 01/22/24 11:17 hydrocodone Allergy ADR-Nausea Verified 01/22/24 11:17 metoclopramide [From Reglan] Allergy ADR-Itching Verified 01/22/24 11:17 promethazine [From Phenergan] Allergy ADR-Vomitin Verified 01/22/24 11:17 g Review of Systems General: Reports: 10 or more systems reviewed and unremarkable except in HPI and below Const: Denies: fever(s) or chills Card: Denies: chest pain Resp: Denies: dyspnea or productive cough GI: Denies: abdominal pain, nausea, vomiting or diarrhea : Denies: flank pain Musc: Reports: back pain and extremity pain; Denies: neck pain, extremity swelling, joint pain, joint swelling, joint redness, joint warmth, limited range of motion or muscle weakness Skin/Breast: Denies: rash Neuro: Denies: headache(s), numbness in extremities or weakness in extremities PFSH ED PFSH: Medical History Acute viral syndrome Opioid contract exists Encounter for long-term opiate analgesic use Chronic low back pain with sciatica Rosacea History of pulmonary embolism post op, had DVT Dyslipidemia borderline by report, not on treatment Hypertension Chronic narcotic use ~ 2yrs, for back pain Obesity BMI 39 Surgical History H/O laminectomy History of carpal tunnel release left History of D&C History of hysterectomy due to life threatening bleeding while on anticoagulation for PE/DVT History of laparoscopic adjustable gastric banding History of tonsillectomy History of back surgery (~2017) History of right knee surgery (~2008) patellar realignment Family History Father Cancer pancreatic cancer Other Diabetes Heart disease Hypertension Social History Smoking and tobacco/nicotine status: never used tobacco/nicotine Alcohol intake: never Substance/Drug Use: never Lives independently: Yes Household members: spouse Current occupational status: disabled Female Reproductive History: Para: 3 Spontaneous abortions: No Physical Exam Const: COMMON NORMALS: no acute distress, patient oriented x3, no limitations, healthy appearing, alert and well nourished GENERAL APPEARANCE: anxious HENMT: COMMON NORMALS: normocephalic and atraumatic HEAD & SCALP: normocephalic and atraumatic Neck/C-Spine: COMMON NORMALS: full ROM, supple and no meningeal signs Resp: COMMON NORMALS: normal respiratory effort, No use of accessory muscles and clear to auscultation bilaterally AUSCULTATION: clear to auscultation bilaterally Cardio: COMMON NORMALS: regular rate and regular rhythm RATE: regular rate RHYTHM: regular rhythm Back/Pelvis: LUMBAR SPINE/LOWER BACK: Yes straight leg raise positive right OTHER: Midline lumbar surgical scar. Tenderness to palpation of the right lower back. Extremity: COMMON NORMALS: normal to inspection, full ROM, capillary refill normal, no joint enlargement and no clubbing, cyanosis or edema Neuro: COMMON NORMALS: patient oriented x3, moves all extremities, no focal motor deficits, no sensory deficits noted and deep tendon reflexes 2+ bilaterall y SENSORIUM/ORIENTATION: Yes alert MENINGEAL SIGNS: Yes no meningeal signs Skin: COMMON NORMALS: no rashes or lesions noted GENERAL SKIN EXAM: no rashes or lesions noted Course Vital Signs: Vital signs: Vital Signs Temperature 98.2 F 03/24/24 17:31 Pulse Rate 74 03/24/24 19:33 Respiratory Rate 18 03/24/24 19:33 Blood Pressure 169/104 03/24/24 19:33 Pulse Oximetry 99 03/24/24 19:33 Oxygen Delivery Me thod Room Air 03/24/24 19:33 MDM - Back Pain/Injury Medical Decision Making Patient has history of multiple back surgeries, has been complaining of chronic right lower back pain radiating down her right leg. She did have positive straight leg raise testing on the right, though did not have any recent trauma or injury that would warrant imaging at this time. No need for blood work [facility] er. She did not have any red flag back symptoms. She did note improvement of pain after being given pain medication here, steroid, and muscle relaxer. Short prescription sent in for the steroid and muscle relaxer and she is encouraged to follow-up with primary care provider to discuss any further pain regimens. Told her to return with any new or worsening. No radiology studies performed this visit Discharge Plan Discharge Patient Disposition: Home Clinical Impression: Sciatica Qualifiers: Laterality: right Qualified Code(s): M54.31 - Sciatica, right side Condition: Stable Prescriptions: New prednisone 20 mg tablet 60 mg PO ONCE 5 Days Qty: 15 0RF methocarbamol 750 mg tablet 750 mg PO Q8H 5 Days Qty: 15 0RF No Action lisinopril-hydrochlorothiazide 20-25 mg tablet 1 tab PO DAILY Qty: 90 3RF escitalopram oxalate 20 mg tablet 20 mg PO DAILY Qty: 30 0RF diazepam [Valium] 5 mg tablet 5 mg PO TID PRN (Reason: muscle spasm) 7 Days Qty: 21 0RF Linzess 72 mcg capsule 72 mcg PO DAILY PRN (Reason: Pain, Mild) Eliquis 5 mg tablet 5 mg PO BID Qty: 60 2RF morphine 15 mg tablet extended release 15 mg PO Q12H MDD 2 PRN (Reason: back pain) 7 Days Qty: 14 0RF bupropion HCl 300 mg tablet extended release 24 hr 300 mg PO QAM Qty: 30 5RF ondansetron 4 mg tablet,disintegrating 4 mg PO Q8H PRN (Reason: nausea and vomiting) Qty: 90 0RF oxycodone 5 mg tablet 5 mg PO Q4H PRN (Reason: pain) 7 Days Qty: 40 0RF Discharge Orders: Discharge ED (Routine); Ordered 03/24/24 Ordered By: Marlo Meléndez Referrals: Sb Le DO [Primary Care Provider] - Patient Instructions: Opioid Safety, Pain Management Activity Restrictions/Additional Instructions: Follow-up with your primary care provider as discussed. Take steroids and muscle relaxers. Continue taking your morphine at home. Rest and recovery, ice/heat. Return with any new or worsening. Coding Level of Care Code ED Possum Trapper for Zabrina Burgess
[2024-03-24 19:28] VITALS: RESP 18
[2024-03-24] MEDS: dexamethasone 10 mg/mL INJ IM (19:29)
[2024-03-24] MEDS: orphenadrine 30 mg/mL Inj 2 mL 60 MG IM (19:31)
[2024-03-24 19:33] VITALS: BP 169/104; PULSE 74; RESP 18; O2SAT 99
[2024-03-24 20:20] VITALS: BP 174/99; PULSE 58; O2SAT 99
== END 2024-03-24 20:21 | disposition home or self-care (01) ==
PROVIDERS: Emergency Provider Physician Assistant; PCP Family Medicine
DX: M54.31 Sciatica, right side (principal); Z79.01 Long term (current) use of anticoagulants; I10 Essential (primary) hypertension
CPT/HCPCS: 96372; 99284; J1100; J2360

== ENCOUNTER 2024-03-25 01:45 | Emergency (ER) | payer MEDICAID, SELFPAY ==
[2024-03-25 02:08] VITALS: BP 194/103; PULSE 70; RESP 18; TEMP 36.7; O2SAT 96; BMI 37.8
--- NOTE | 2024-03-25 04:06 | ED_ITS ---
HPI - General Adult General: Chief complaint: General Medical Stated complaint: Skin crawling from Med today in ER Time Seen by Provider: 03/25/24 04:02 History of Present Illness: 43-year-old woman who comes back to the emergency room today. She was treated for COVID earlier. She thinks that one of the medication she received is caused her to be agitated. She says she is having a burning pain down the front of her legs and has feeling very agitated. No saddle numbness, no urinary retention or incontinence, no focal motor deficit, no sensory deficit. no recent fever. no cough. no shortness of breath. no chest pain. no abdominal pain. no nausea or vomiting. no dysuria. no altered mental status. no edema. Related Data Home Medications Medication Instructions Recorded Confirmed linaclotide 72 mcg capsule 72 mcg PO DAILY PRN Pain, Mild 01/01/23 01/22/24 (Linzess) Previous Rx's Medication Instructions Recorded lisinopril 20 1 tab PO DAILY #90 tabs 10/09/23 mg-hydrochlorothiazide 25 mg tablet ondansetron 4 mg disintegrating 4 mg PO Q8H PRN nausea and 10/14/23 tablet vomiting #90 tabs apixaban 5 mg tablet (Eliquis) 5 mg PO BID #60 tabs 11/12/23 bupropion HCl 300 mg 24 hr tablet, 300 mg PO QAM #30 tabs 01/22/24 extended release morphine 15 mg tablet,extended 15 mg PO Q12H PRN back pain 7 days 01/22/24 release #14 tabs oxycodone 5 mg tablet 5 mg PO Q4H PRN pain 7 days #40 01/29/24 tabs escitalopram oxalate 20 mg tablet 20 mg PO DAILY #30 tabs 03/06/24 diazepam 5 mg tablet (Valium) 5 mg PO TID PRN muscle spasm 7 03/12/24 days #21 tabs methocarbamol 750 mg tablet 750 mg PO Q8H 5 days #15 tabs 03/24/24 prednisone 20 mg tablet 60 mg (3 x 20 mg) PO ONCE 5 days 03/24/24 #15 tabs Allergies Allergy/AdvReac Type Severity Reaction Status Date / Time adhesive tape Allergy ALGY-Rash Verified 03/25/24 02:12 hydrocodone Allergy ADR-Nausea Verified 03/25/24 02:12 metoclopramide [From Reglan] Allergy ADR-Itching Verified 03/25/24 02:12 promethazine [From Phenergan] Allergy ADR-Vomitin Verified 03/25/24 02:12 g Review of Systems Narrative: Constitutional symptoms: Negative except as documented in HPI. Skin symptoms: Negative except as documented in HPI. Eye symptoms: Negative except as documented in HPI. ENMT symptoms: Negative except as documented in HPI. Respiratory symptoms: Negative except as documented in HPI. Cardiovascular symptoms: Negative except as documented in HPI. Gastrointestinal symptoms: Negative except as documented in HPI. Genitourinary symptoms: Negative except as documented in HPI. Musculoskeletal symptoms: Negative except as documented in HPI. Neurologic symptoms: Negative except as documented in HPI. Psychiatric symptoms: Negative except as documented in HPI. Endocrine symptoms: Negative except as documented in HPI. PFSH ED PFSH: Medical History Acute viral syndrome Opioid contract exists Encounter for long-term opiate analgesic use Chronic low back pain with sciatica Rosacea History of pulmonary embolism post op, had DVT Dyslipidemia borderline by report, not on treatment Hypertension Chronic narcotic use ~ 2yrs, for back pain Obesity BMI 39 Surgical History H/O laminectomy History of carpal tunnel release left History of D&C History of hysterectomy due to life threatening bleeding while on anticoagulation for PE/DVT History of laparoscopic adjustable gastric banding History of tonsillectomy History of back surgery (~2018) History of right knee surgery (~2008) patellar realignment Family History Father Cancer pancreatic cancer Other Diabetes Heart disease Hypertension Social History Smoking and tobacco/nicotine status: never used tobacco/nicotine Alcohol intake: never Substance/Drug Use: never Lives independently: Yes Household members: spouse Current occupational status: disabled Female Reproductive History: Para: 3 Spontaneous abortions: No Physical Exam Narrative: EXAM NARRATIVE: General: Alert, no acute distress. Skin: warm and dry Head: Normocephalic Neck: Trachea midline Eye: Extraocular movements are intact. Ears, nose, mouth and throat: Oral mucosa moist Respiratory: Respirations are non-labored Musculoskeletal: Normal ROM Neurological: Alert and oriented, No focal neurological deficit observed. Psychiatric: Cooperative, patient appears quite anxious Course Vital Signs: Vital signs: Vital Signs Temperature 98.0 F 03/25/24 02:08 Pulse Rate 70 03/25/24 02:08 Respiratory Rate 18 03/25/24 02:08 Blood Pressure 194/103 03/25/24 02:08 Pulse Oximetry 96 03/25/24 02:08 Oxygen Delivery Me thod Room Air 03/25/24 02:08 MDM - General Adult Medical Decision Making Assessment and plan: Back pain ? IM Dilaudid and IM Ativan - Discharged home - Discussed plan with patient. Answered any questions. - Evaluation and treatment of this problem were appropriate in the emergency setting. No radiology studies performed this visit Discharge Plan Discharge Patient Disposition: Home Clinical Impression: Sciatica Condition: Stable Prescriptions: No Action lisinopril-hydrochlorothiazide 20-25 mg tablet 1 tab PO DAILY Qty: 90 3RF escitalopram oxalate 20 mg tablet 20 mg PO DAILY Qty: 30 0RF diazepam [Valium] 5 mg tablet 5 mg PO TID PRN (Reason: muscle spasm) 7 Days Qty: 21 0RF Linzess 72 mcg capsule 72 mcg PO DAILY PRN (Reason: Pain, Mild) Eliquis 5 mg tablet 5 mg PO BID Qty: 60 2RF morphine 15 mg tablet extended release 15 mg PO Q12H MDD 2 PRN (Reason: back pain) 7 Days Qty: 14 0RF bupropion HCl 300 mg tablet extended release 24 hr 300 mg PO QAM Qty: 30 5RF ondansetron 4 mg tablet,disintegrating 4 mg PO Q8H PRN (Reason: nausea and vomiting) Qty: 90 0RF oxycodone 5 mg tablet 5 mg PO Q4H PRN (Reason: pain) 7 Days Qty: 40 0RF prednisone 20 mg tablet 60 mg PO ONCE 5 Days Qty: 15 0RF methocarbamol 750 mg tablet 750 mg PO Q8H 5 Days Qty: 15 0RF Discharge Orders: Discharge ED (Routine); Ordered 03/25/24 Ordered By: Hillary Pickett Referrals: Sb Le DO [Primary Care Provider] - Discharge Diet: Usual diet Discharge Activity: Increase activity as tolerated Patient Instructions: Opioid Safety, Pain Management Activity Restrictions/Additional Instructions: [facility]. Please realize this is an emergency room and that we are providing you with a medical screening exam and this may not be complete and all inclusive of all the testing and or work up that you may need to determine your ailment or severity of your illness. You have been screened and evaluated and felt safe for discharge. Health conditions do change or evolve sometimes and as such it is important that you follow up with your Primary Doctor to be re checked, 3-5 days is a general good time frame for follow up. You are always welcome to return to the ED for re assessment if your symptoms are worsening or you have new concerns Coding Level of Care Code ED Camera Systems Engineer for Zabrina Burgess
[2024-03-25] MEDS: HYDROmorphone 1 mg/mL INJ 1 mL IM (04:26)
[2024-03-25] MEDS: LORazepam 2 mg/mL INJ 1 mL IM (04:26)
[2024-03-25] MEDS: ondansetron 2 mg/ML SDV 2 mL 8 MG IVP (04:46)
[2024-03-25 05:06] VITALS: BP 186/98; PULSE 72; O2SAT 98
== END 2024-03-25 05:11 | disposition home or self-care (01) ==
PROVIDERS: Emergency Provider Emergency Medicine
DX: M54.30 Sciatica, unspecified side (principal); Z79.01 Long term (current) use of anticoagulants; I10 Essential (primary) hypertension
CPT/HCPCS: 96372; 96374; 99284; J1171; J2060; J2405

== ENCOUNTER 2024-03-25 08:37 | Emergency (ER) | payer MEDICAID, SELFPAY ==
[2024-03-25] VITALS (13 sets, daily range): BP systolic 154–200; BP diastolic 79–116; PULSE 55–85; RESP 22; TEMP 36.2; O2SAT 95–100
--- NOTE | 2024-03-25 09:00 | W.ED.NAVMDI ---
HPI - Nausea/Vomiting/Diarrhea General: Chief complaint: Nausea/Vomiting/Diarrhea Stated complaint: N/V Time Seen by Provider: 03/25/24 08:49 History of Present Illness: 43-year-old female presents emergency room with complaining of back pain. This is her third visit in the last 36 hours. She has previously had a lumbar fusion. In July of this year she subsequently return to the emergency room for removal of hardware from her right ilium from a previous fracture. She returns the at this visit complaining of continued low back pain however her primary issue is persistent nausea vomiting. She states she has had difficulty with persistent nausea and vomiting in the past several years ago she was hospitalized for extended period of time for this. She is on extended release morphine. After her first visit visit she was discharged with methocarbamol and prednisone taper. She denies any hematemesis or coffee-ground emesis. Describes vomitus as bilious which was witnessed at the bedside. She previously has had an appendectomy and cholecystectomy. Associated symtoms: Denies chest pain or dysuria Related Data Previous Rx's Medication Instructions Recorded lisinopril 20 1 tab PO DAILY #90 tabs 10/09/23 mg-hydrochlorothiazide 25 mg tablet apixaban 5 mg tablet (Eliquis) 5 mg PO BID #60 tabs 11/12/23 bupropion HCl 300 mg 24 hr tablet, 300 mg PO QAM #30 tabs 01/22/24 extended release morphine 15 mg tablet,extended 15 mg PO Q12H PRN back pain 7 days 01/22/24 release #14 tabs escitalopram oxalate 20 mg tablet 20 mg PO DAILY #30 tabs 03/06/24 diazepam 5 mg tablet (Valium) 5 mg PO TID PRN muscle spasm 7 03/12/24 days #21 tabs prednisone 20 mg tablet 60 mg (3 x 20 mg) PO ONCE 5 days 03/24/24 #15 tabs ondansetron HCl 4 mg tablet 4 mg PO Q6H PRN nausea and 03/25/24 vomiting #20 tabs Allergies Allergy/AdvReac Type Severity Reaction Status Date / Time adhesive tape Allergy ALGY-Rash Verified 03/25/24 02:12 hydrocodone Allergy ADR-Nausea Verified 03/25/24 02:12 metoclopramide [From Reglan] Allergy ADR-Itching Verified 03/25/24 02:12 promethazine [From Phenergan] Allergy ADR-Vomitin Verified 03/25/24 02:12 g Review of Systems Const: Denies: fever(s) or chills Card: Denies: chest pain Resp: Denies: dyspnea GI: Denies: abdominal pain : Denies: dysuria, urinary frequency or urinary urgency Musc: Denies: neck pain or back pain Skin/Breast: Denies: rash PFSH ED PFSH: Medical History Acute viral syndrome Opioid contract exists Encounter for long-term opiate analgesic use Chronic low back pain with sciatica Rosacea History of pulmonary embolism post op, had DVT Dyslipidemia borderline by report, not on treatment Hypertension Chronic narcotic use ~ 2yrs, for back pain Obesity BMI 39 Surgical History H/O laminectomy History of carpal tunnel release left History of D&C History of hysterectomy due to life threatening bleeding while on anticoagulation for PE/DVT History of laparoscopic adjustable gastric banding History of tonsillectomy History of back surgery (~2017) History of right knee surgery (~2008) patellar realignment Family History Father Cancer pancreatic cancer Other Diabetes Heart disease Hypertension Social History Smoking and tobacco/nicotine status: never used tobacco/nicotine Alcohol intake: never Substance/Drug Use: never Lives independently: Yes Household members: spouse Current occupational status: disabled Female Reproductive History: Para: 3 Spontaneous abortions: No Physical Exam Const: GENERAL APPEARANCE: cooperative ORIENTATION/CONSCIOUSNESS: Yes awake, Yes oriented to person, Yes oriented to place and Yes oriented to time HENMT: COMMON NORMALS: normocephalic, atraumatic and hearing grossly normal bilaterally HEAD & SCALP: normocephalic and atraumatic Resp: COMMON NORMALS: normal respiratory effort, No retractions, No use of accessory muscles and clear to auscultation bilaterally AUSCULTATION: clear to auscultation bilaterally Cardio: COMMON NORMALS: regular rate, regular rhythm and No murmurs present (Cardio) RATE: regular rate RHYTHM: regular rhythm GI: COMMON NORMALS: Soft to palpation and No hepatosplenomegaly present AUSCULTATION: Yes normoactive bowel sounds PALPATION: Yes Soft to palpation, No Tenderness to palpation present (GI), No Guarding due to palpation present (GI) and Yes No hepatosplenomegaly present Extremity: COMMON NORMALS: normal to inspection, capillary refill normal, no clubbing, cyanosis or edema, no calf tenderness and no pedal edema Neuro: SENSORIUM/ORIENTATION: Yes oriented to person, Yes oriented to place and Yes oriented to time Skin: COMMON NORMALS: no rashes or lesions noted GENERAL SKIN EXAM: no rashes or lesions noted Course Vital Signs: Vital signs: Vital Signs Temperature 97.1 F L 03/25/24 08:48 Pulse Rate 85 03/25/24 14:15 Respiratory Rate 22 H 03/25/24 08:48 Blood Pressure 160/79 03/25/24 14:15 Pulse Oximetry 96 03/25/24 14:15 Oxygen Delivery Me thod Room Air 03/25/24 13:32 MDM - Nausea/Vomiting/Diarrhea Medical Decision Making Persistent nausea and vomiting improved with medications still having quite a bit of back pain but this is chronic. White count is elevated but believe that is from the steroid she was given. Discharge patient home given narcotics just prior to discharge and she missed her usual daytime narcotic dose. Ondansetron to use as needed. Follow-up with general surgery to further evaluate possible EGD Medical Records I reviewed the patient's medical records. Lab Data I reviewed the patient's lab results. 03/25/24 09:27 03/25/24 09:27 Radiology Impressions Abdomen/Pelvis CT 03/25/24 09:09 IMPRESSION: 1. No acute abdominal or pelvic abnormalities are identified. 2. No renal obstruction or ureteral calcification. 3. No ascites or free air. 4. No GI tract obstruction. 5. LEFT lateral spiculation hernia. Laboratory Results WBC 17.68 10^3/uL (3.29-11.43) H 03/25/24 09:27 RBC 4.64 10^6/uL (3.85-5.65) 03/25/24 09:27 Hgb 13.50 g/dL (11.27-16.99) 03/25/24 09:27 Hct 42.6 % (36-47) 03/25/24 09:27 MCV 91.8 fl (85-98) 03/25/24 09: MCH 29.1 pg (27-33) 03/25/24 09: MCHC 31.7 g/dL (30-55) 03/25/24 09: RDW 13.7 % (12.1-15.1) 03/25/24 09: Plt Count 258 10^3/cmm (157-399) 03/25/24 09: MPV 10.6 fL (7.4-10.4) H 03/25/24 09:27 Neut % (Auto) 89.2 % 03/25/24 09: Lymph % (Auto) 7.5 % 03/25/24 09: Haskell % (Auto) 2.3 % 03/25/24 09: Eos % (Auto) 0.1 % 03/25/24 09: Baso % (Auto) 0.2 % 03/25/24 09: Neut # (Auto) 15.78 10^3/uL (1.8-7.7) H 03/25/24 09: Lymph # (Auto) 1.3 10^3/uL (0.8-4.8) 03/25/24 09: Haskell # (Auto) 0.4 10^3/uL (0.2-0.9) 03/25/24 09: Eos # (Auto) 0.0 10^3/uL (0.0-0.8) 03/25/24 09: Baso # (Auto) 0.0 10^3/uL (0.0-0.1) 03/25/24 09: Nucleated RBC % (auto) 0 % 03/25/24 09: Nucleated RBCs # 0.0 /100WBC 03/25/24 09:27 Sodium 142 mmol/L (136-145) 03/25/24 09:27 Potassium 3.8 mmol/L (3.5-5.1) 03/25/24 09: Chloride 105 mmol/L (98-107) 03/25/24 09:27 Carbon Dioxide 23 mmol/L (22-29) 03/25/24 09:27 Anion Gap 17.8 (5-19) 03/25/24 09:27 BUN 16 mg/dL (6-20) 03/25/24 09: Creatinine 0.8 mg/dL (0.5-0.9) 03/25/24 09:27 GFR Calculation 77.6 mL/min (90-130) L 03/25/24 09:27 Glucose 168 mg/dL (65-115) H 03/25/24 09: Calculated Osmolality 299 mOsm/kg (285-295) H 03/25/24 09:27 Calcium 9.3 mg/dL (8.5-10.5) 03/25/24 09: Total Bilirubin 0.4 mg/dL (0.15-1.2) 03/25/24: AST 13 U/L (0-32) 03/25/24: ALT 11 U/L (0-33) 03/25/24 09: Alkaline Phosphatase 134 U/L (35-105) H 03/25/24 09: Total Protein 7.8 g/dL (6.6-8.7) 03/25/24 09: Albumin 4.7 g/dL (3.5-5.2) 03/25/24 09: Globulin 3.1 g/dL (1.3-4.6) 03/25/24: Lipase 22 U/L (13-60) 03/25/24 09: Urine Color Yellow (Yellow) 03/25/24 12:07 Urine Appearance Clear (CLEAR) 03/25/24 12:07 Urine pH 7.5 (5-7) 03/25/24 12:07 Ur Specific Deloit 1.063 (1.005-1.030) H 03/25/24 12:07 Urine Protein Trace (Negative) A 03/25/24 12:07 Urine Glucose (UA) Negative (Normal) 03/25/24 12:07 Urine Ketones Negative (Negative) 03/25/24 12:07 Urine Blood Non-haemolysed trace (Negative) 03/25/24 12:07 Urine Nitrate Negative (Negative) 03/25/24 12:07 Urine Bilirubin Negative (Negative) 03/25/24 12:07 Urine Urobilinogen 0.2 mg/dL (Negative) 03/25/24 12:07 Ur Leukocyte Esterase Negative (Negative) 03/25/24 12:07 Urine RBC 0-4 /hpf (0-2) H 03/25/24 12:07 Urine WBC 0-4 /hpf (0-5) H 03/25/24 12:07 Ur Squamous Epith Cells 0-4 /hpf (0-5) H 03/25/24 12:07 Amorphous Sediment Not Reportable 03/25/24 12:07 Urine Bacteria None /hpf (NONE) 03/25/24 12:07 Urine Mucus None /hpf 03/25/24 12:07 Serum Ketones Negative (Negative) 03/25/24 09:27 All radiology interpretation(s) finalized by discharge Discharge Plan Discharge Patient Disposition: Home Clinical Impression: Nausea and vomiting, Chronic back pain Condition: Stable Prescriptions: New ondansetron HCl 4 mg tablet 4 mg PO Q6H PRN (Reason: nausea and vomiting) Qty: 20 0RF No Action lisinopril-hydrochlorothiazide 20-25 mg tablet 1 tab PO DAILY Qty: 90 3RF escitalopram oxalate 20 mg tablet 20 mg PO DAILY Qty: 30 0RF diazepam [Valium] 5 mg tablet 5 mg PO TID PRN (Reason: muscle spasm) 7 Days Qty: 21 0RF Eliquis 5 mg tablet 5 mg PO BID Qty: 60 2RF morphine 15 mg tablet extended release 15 mg PO Q12H MDD 2 PRN (Reason: back pain) 7 Days Qty: 14 0RF bupropion HCl 300 mg tablet extended release 24 hr 300 mg PO QAM Qty: 30 5RF prednisone 20 mg tablet 60 mg PO ONCE 5 Days Qty: 15 0RF Discharge Orders: Discharge ED (Routine); Ordered 03/25/24 Ordered By: Jose Licona Discharge Diet: Clear Liquid Discharge Activity: Increase activity as tolerated Patient Instructions: Opioid Safety, Pain Management Activity Restrictions/Additional Instructions: Thank you for choosing [facility] for your healthcare needs today. It is very important that you follow up as instructed or that you return to the Emergency Department should you have concerns or if your condition changes or worsens in any way. You are seen in the emergency room for persistent nausea vomiting. Evaluation was unremarkable your white count is elevated this is secondary to the steroid you are given. Back pain. Continue your current back pain medications. You are given a prescription of ondansetron to use as needed for nausea vomiting. Glucotide for 24 to 48 hours and advance as tolerated. Case management make arrange for you to follow-up with general surgery. Coding Level of Care Code ED Information Technology Specialist for Zabrina Burgess
--- NOTE | 2024-03-25 09:09 | CT_ITS ---
WS: [id number] CT ABDOMEN AND PELVIS WITH CONTRAST HISTORY: abd pain TECHNIQUE: Imaging performed of the abdomen and pelvis with IV contrast. Single phase imaging of the abdomen. Coronal and sagittal reformats are submitted. All CT scans at [facility] use at [address] one of these dose optimization techniques: automated exposure control; mA and/or kV adjustment per patient size (includes targeted exams where dose is matched to clinical indication); or iterative re construction. IV CONTRAST: Omnipaque 350; 100 mL IV. Oral contrast: No DLP: 894.11 mGy.cm COMPARISON: 08/23/2022 Lower thorax: Lung bases are clear. Heart is normal size. Small hiatal hernia. Prior gastric banding. Liver/biliary system: Normal size with no intrahepatic dilatation. Gallbladder: Status post cholecystectomy. Pancreas: Mild fatty replacement more focally involving the pancreatic head. Spleen: Normal size spleen. No mass or infarct. Adrenal glands: Normal. Right kidney: Normal size kidney with too small to characterize cortical hypodensity in the upper rosie e. No obstruction. Left kidney: Mildly lobulated kidney. Nonobstructing renal calcifications. Aorta: Normal. Lymphadenopathy: None. Free fluid: None. GI tract: Nondistended stomach. No small bowel or colon obstruction. Prior appendectomy. Minimal dive rticular disease without acute diverticulitis. Abdominal wall: LEFT lateral spigelian hernia. Also noted on the prior study. Hernia contains fat onl y. Pelvis: No free fluid or adenopathy within the pelvis. Prior hysterectomy. Bones: Prior lumbosacral fusion. There is significant motion artifact through the pelvis due to patie nt movement. Position of the hardware cannot be determined accurately. CT/CT abdomen pelvis w con* [id number] IMPRESSION: 1. No acute abdominal or pelvic abnormalities are identified. 2. No renal obstruction or ureteral calcification. 3. No ascites or free air. 4. No GI tract obstruction. 5. LEFT lateral spiculation hernia.
[2024-03-25] MEDS: LORazepam 2 mg/mL INJ 1 mL IVP (09:32)
[2024-03-25] MEDS: haloperidol inj 5 mg/mL INJ 1 mL 2.5 MG IVP (09:37)
[2024-03-25 09:42] LABS: Basophils % 0.2 %; Eosinophils % 0.1 %; Hematocrit 42.6 % (36-47); Lymphocytes # 1.3 10^3/uL (0.8-4.8); Lymphocytes % 7.5 %; Mean Corpuscular HGB Conc 31.7 g/dL (30-55); Mean Corpuscular Hemoglobin 29.1 pg (27-33); Mean Corpuscular Volume 91.8 fl (85-98); Mean Platelet Volume 10.6 fL (7.4-10.4); Monocytes # 0.4 10^3/uL (0.2-0.9); Monocytes % 2.3 %; Neutrophils # 15.78 10^3/uL (1.8-7.7); Neutrophils % 89.2 %; Nucleated Red Blood Cells % 0 %; Platelet Count 258 10^3/cmm (157-399); Red Blood Count 4.64 10^6/uL (3.85-5.65); Red Cell Distribution Width 13.7 % (12.1-15.1); White Blood Count 17.68 10^3/uL (3.29-11.43)
[2024-03-25 09:58] LABS: Alanine Aminotransferase 11 U/L (0-33); Albumin Level 4.7 g/dL (3.5-5.2); Alkaline Phosphatase 134 U/L (35-105); Anion Gap 17.8 (5-19); Aspartate Amino Transferase 13 U/L (0-32); Blood Urea Nitrogen 16 mg/dL (6-20); Calcium 9.3 mg/dL (8.5-10.5); Carbon Dioxide 23 mmol/L (22-29); Chloride 105 mmol/L (98-107); Creatinine Clr Calc Pharmacy 105.6844; Globulin 3.1 g/dL (1.3-4.6); Glomerular Filtration Rate 77.6 mL/min (90-130); Glucose 168 mg/dL (65-115); Lipase 22 U/L (13-60); Osmolality Calculated 299 mOsm/kg (285-295); Potassium 3.8 mmol/L (3.5-5.1); Sodium 142 mmol/L (136-145); Total Bilirubin 0.4 mg/dL (0.15-1.2); Total Protein 7.8 g/dL (6.6-8.7)
[2024-03-25 10:00] LABS: Ketone (Acetest) Serum Negative (Negative)
--- NOTE | 2024-03-25 10:03 | PC.PHAR ---
patient seemed really out of it but did confirm all meds
[2024-03-25] MEDS: iohexol 350 mg/mL 500 mL Btl (per mL) IV (10:55)
[2024-03-25 12:17] LABS: Bilirubin Urine Negative (Negative); Blood Urine Non-haemolysed trace (Negative); Glucose Urine UA Negative (Normal); Ketones Urine Negative (Negative); Leukocyte Esterase Urine Negative (Negative); Nitrate Urine Negative (Negative); Protein Urine Trace (Negative); Urine Appearance Clear (CLEAR); Urine Color Yellow (Yellow); Urobilinogen Urine 0.2 mg/dL (Negative); pH Urine 7.5 (5-7)
[2024-03-25] MEDS: amlodipine 5 mg Tablet PO (12:46)
[2024-03-25] MEDS: ketorolac 30 mg/mL INJ IVP (12:47)
[2024-03-25] MEDS: dexamethasone 10 mg/mL INJ IM (12:49)
[2024-03-25] MEDS: hyDRALAzine 20 mg/mL INJ 1 mL 10 MG IVP (12:49)
[2024-03-25 12:52] LABS: Specific Gravity, Urine 1.063 (1.005-1.030); UA Manual Slide Review YES; UA Slide Review UA Slide Review Perf
[2024-03-25 12:54] LABS: Add Urine Culture? No; Add Urine Microscopic? YES; RBC Urine 0-4 /hpf (0-2); Squamous Epithelial Cell Urine 0-4 /hpf (0-5); WBC Urine 0-4 /hpf (0-5)
[2024-03-25] MEDS: orphenadrine 30 mg/mL Inj 2 mL 60 MG IVP (13:25)
[2024-03-25] MEDS: morphine 4 mg/mL SDV 1 mL IVP (13:30)
== END 2024-03-25 14:16 | disposition home or self-care (01) ==
PROVIDERS: Emergency Provider Family Medicine
DX: R11.2 Nausea with vomiting, unspecified (principal); M54.89 Other dorsalgia; Z79.01 Long term (current) use of anticoagulants; I10 Essential (primary) hypertension
CPT/HCPCS: 74177; 80053; 81001; 82009; 83690; 85025; 96372; 96374; 96375; 99285; J0360; J1100; J1630; J1885; J2060; J2270; J2360

== ENCOUNTER 2024-03-26 11:10 | Emergency (ER) | payer MEDICAID, SELFPAY ==
[2024-03-26 11:27] VITALS: BP 178/106; PULSE 65; TEMP 36.8; O2SAT 97; BMI 37.8
[2024-03-26 20:31] LABS: Basophils % 0.1 %; Hematocrit 41.1 % (36-47); Lymphocytes # 2.6 10^3/uL (0.8-4.8); Lymphocytes % 14.6 %; Mean Corpuscular HGB Conc 32.4 g/dL (30-55); Mean Corpuscular Hemoglobin 28.9 pg (27-33); Mean Corpuscular Volume 89.3 fl (85-98); Mean Platelet Volume 10.1 fL (7.4-10.4); Monocytes # 1.3 10^3/uL (0.2-0.9); Monocytes % 7.4 %; Neutrophils # 13.63 10^3/uL (1.8-7.7); Neutrophils % 77.4 %; Nucleated Red Blood Cells % 0 %; Platelet Count 255 10^3/cmm (157-399); White Blood Count 17.62 10^3/uL (3.29-11.43)
[2024-03-26 20:53] LABS: Alanine Aminotransferase 12 U/L (0-33); Albumin Level 4.3 g/dL (3.5-5.2); Alkaline Phosphatase 110 U/L (35-105); Anion Gap 15.1 (5-19); Aspartate Amino Transferase 13 U/L (0-32); Blood Urea Nitrogen 31 mg/dL (6-20); Calcium 8.9 mg/dL (8.5-10.5); Carbon Dioxide 28 mmol/L (22-29); Chloride 104 mmol/L (98-107); Creatinine Clr Calc Pharmacy 93.9417; Globulin 2.4 g/dL (1.3-4.6); Glomerular Filtration Rate 67.7 mL/min (90-130); Glucose 97 mg/dL (65-115); Lipase 24 U/L (13-60); Osmolality Calculated 304 mOsm/kg (285-295); Potassium 3.1 mmol/L (3.5-5.1); Sodium 144 mmol/L (136-145); Total Bilirubin 0.8 mg/dL (0.15-1.2); Total Protein 6.7 g/dL (6.6-8.7)
== END 2024-03-26 12:35 | disposition left against medical advice (07) ==
LOC: ER 11:14
PROVIDERS: Emergency Medicine; Emergency Provider Family Medicine
DX: Z53.21 Procedure and treatment not carried out due to patient leaving prior to being seen by health care provider (principal)
CPT/HCPCS: 36415; 80053; 83690; 85025

== ENCOUNTER 2024-03-26 17:14 | Emergency (ER) | payer MEDICAID, SELFPAY ==
[2024-03-26] VITALS (7 sets, daily range): BP systolic 157–176; BP diastolic 94–116; PULSE 52–62; RESP 17–18; TEMP 36.9; O2SAT 95–100; BMI 37.8
--- NOTE | 2024-03-26 17:30 | ED_ITS ---
Documented by User: Mata Hicks DO 03/26/24 21:00 HPI - Nausea/Vomiting/Diarrhea 2 General: Chief complaint: Nausea/Vomiting/Diarrhea Stated complaint: n,v Time Seen by Provider: 03/26/24 17:20 History of Present Illness: Presents to the ER with nausea vomiting for the past few days. Patient been seen several times for the same thing. Patient had a full workup. Patient is under a lot of stress recently with her dying she thinks it could all be nerves. Related Data Previous Rx's Medication Instructions Recorded lisinopril 20 1 tab PO DAILY #90 tabs 10/09/23 mg-hydrochlorothiazide 25 mg tablet apixaban 5 mg tablet (Eliquis) 5 mg PO BID #60 tabs 11/12/23 bupropion HCl 300 mg 24 hr tablet, 300 mg PO QAM #30 tabs 01/22/24 extended release morphine 15 mg tablet,extended 15 mg PO Q12H PRN back pain 7 days 01/22/24 release #14 tabs escitalopram oxalate 20 mg tablet 20 mg PO DAILY #30 tabs 03/06/24 diazepam 5 mg tablet (Valium) 5 mg PO TID PRN muscle spasm 7 03/12/24 days #21 tabs prednisone 20 mg tablet 60 mg (3 x 20 mg) PO ONCE 5 days 03/24/24 #15 tabs ondansetron HCl 4 mg tablet 4 mg PO Q6H PRN nausea and 03/25/24 vomiting #20 tabs ciprofloxacin HCl 500 mg tablet 500 mg PO Q12H #20 tabs 03/26/24 Allergies Allergy/AdvReac Type Severity Reaction Status Date / Time adhesive tape Allergy ALGY-Rash Verified 03/26/24 17:25 haloperidol [From Haldol] Allergy ADR-Irritab Verified 03/26/24 17:25 le hydrocodone Allergy ADR-Nausea Verified 03/26/24 17:25 metoclopramide [From Reglan] Allergy ADR-Itching Verified 03/26/24 17:25 promethazine [From Phenergan] Allergy ADR-Vomitin Verified 03/26/24 17:25 g Review of Systems 2 General: Reports: 10 or more systems reviewed and unremarkable except in HPI and below PFSH ED 2 PFSH: Medical History Acute viral syndrome Opioid contract exists Encounter for long-term opiate analgesic use Chronic low back pain with sciatica Rosacea History of pulmonary embolism post op, had DVT Dyslipidemia borderline by report, not on treatment Hypertension Chronic narcotic use ~ 2yrs, for back pain Obesity BMI 39 Surgical History H/O laminectomy History of carpal tunnel release left History of D&C History of hysterectomy due to life threatening bleeding while on anticoagulation for PE/DVT History of laparoscopic adjustable gastric banding History of tonsillectomy History of back surgery (~2017) History of right knee surgery (~2008) patellar realignment Family History Father Cancer pancreatic cancer Other Diabetes Heart disease Hypertension Social History Smoking and tobacco/nicotine status: never used tobacco/nicotine Alcohol intake: never Substance/Drug Use: never Lives independently: Yes Household members: spouse Current occupational status: disabled Female Reproductive History: Para: 3 Spontaneous abortions: No Physical Exam 2 Const: COMMON NORMALS: no acute distress, average body habitus, patient oriented x3, no limitations, healthy appearing, alert and well nourished HENMT: COMMON NORMALS: normocephalic, atraumatic, hearing grossly normal bilaterally, external ears normal, Normal external nose present and moist oral mucous membranes HEAD & SCALP: normocephalic and atraumatic NOSE: Normal external nose present EXTERNAL EAR: Yes external ears normal Neck/C-Spine: COMMON NORMALS: no JVD Chest: COMMONS NORMALS: normal inspection of the chest and normal palpation of entire chest wall Resp: COMMON NORMALS: normal respiratory effort, No retractions, No use of accessory muscles and clear to auscultation bilaterally AUSCULTATION: clear to auscultation bilaterally Cardio: COMMON NORMALS: no JVD, regular rate, regular rhythm, S1 normal heart sound present, S2 normal heart sound present, No gallops present (Cardio), No clicks present (Cardio), No murmurs present (Cardio) and No rub (Cardio) R ATE: regular rate RHYTHM: regular rhythm HEART SOUNDS: S1 normal heart sound present and S2 normal heart sound present GI: COMMON NORMALS: Normal to inspection, nondistended, normoactive bowel sounds present, Soft to palpation, non-tender, No hepatosplenomegaly present and no masses PALPATION: Yes Soft to palpation and Yes No hepatosplenomegaly present Neuro: COMMON NORMALS: patient oriented x3 SENSORIUM/ORIENTATION: Yes alert Course 2 Vital Signs: Vital signs: Vital Signs Temperature 98.5 F 03/26/24 17:21 Pulse Rate 52 L 03/26/24 20:00 Respiratory Rate 17 03/26/24 17:45 Blood Pressure 157/97 03/26/24 20:00 Pulse Oximetry 98 03/26/24 20:00 Oxygen Delivery Me thod Room Air 03/26/24 20:00 MDM - Nausea/Vomiting/Diarrhea Medical Records I reviewed the patient's medical records. Lab Data I reviewed the patient's lab results. 03/26/24 18:00 03/26/24 18:00 Laboratory Results WBC 20.37 10^3/uL (3.29-11.43) H 03/26/24 18:00 RBC 4.88 10^6/uL (3.85-5.65) 03/26/24 18:00 Hgb 14.10 g/dL (11.27-16.99) 03/26/24 18:00 Hct 43.3 % (36-47) 03/26/24 18:00 MCV 88.7 fl (85-98) 03/26/24 18:00 MCH 28.9 pg (27-33) 03/26/24 18:00 MCHC 32.6 g/dL (30-55) 03/26/24 18:00 RDW 14.0 % (12.1-15.1) 03/26/24 18:00 Plt Count 302 10^3/cmm (157-399) 03/26/24 18:00 MPV 10.5 fL (7.4-10.4) H 03/26/24 18:00 Neut % (Auto) 78.2 % 03/26/24 18:00 Lymph % (Auto) 14.2 % 03/26/24 18:00 [place] % (Auto) 7.1 % 03/26/24 18:00 Eos % (Auto) 0.0 % 03/26/24 18:00 Baso % (Auto) 0.1 % 03/26/24 18:00 Neut # (Auto) 15.93 10^3/uL (1.8-7.7) H 03/26/24 18:00 Lymph # (Auto) 2.9 10^3/uL (0.8-4.8) 03/26/24 18:00 [place] # (Auto) 1.4 10^3/uL (0.2-0.9) H 03/26/24 18:00 Eos # (Auto) 0.0 10^3/uL (0.0-0.8) 03/26/24 18:00 Baso # (Auto) 0.0 10^3/uL (0.0-0.1) 03/26/24 18:00 Nucleated RBC % (auto) 0 % 03/26/24 18:00 Nucleated RBCs # 0.0 /100WBC 03/26/24 18:00 Sodium 141 mmol/L (136-145) 03/26/24 18:00 Potassium 3.1 mmol/L (3.5-5.1) L 03/26/24 18:00 Chloride 100 mmol/L (98-107) 03/26/24 18:00 Carbon Dioxide 27 mmol/L (22-29) 03/26/24 18:00 Anion Gap 17.1 (5-19) 03/26/24 18:00 BUN 32 mg/dL (6-20) H 03/26/24 18:00 Creatinine 1.0 mg/dL (0.5-0.9) H 03/26/24 18:00 GFR Calculation 60.0 mL/min (90-130) L 03/26/24 18:00 Glucose 103 mg/dL (65-115) 03/26/24 18:00 Calculated Osmolality 299 mOsm/kg (285-295) H 03/26/24 18:00 Lactic Acid 1.0 mmol/L (0.5-2.2) 03/26/24 20:21 Calcium 9.8 mg/dL (8.5-10.5) 03/26/24 18:00 Magnesium 2.2 mg/dL (1.7-2.3) 03/26/24 18:00 Total Bilirubin 0.9 mg/dL (0.15-1.2) 03/26/24 18:00 AST 14 U/L (0-32) 03/26/24 18:00 ALT 13 U/L (0-33) 03/26/24 18:00 Alkaline Phosphatase 128 U/L (35-105) H 03/26/24 18:00 C-Reactive Protein 3.0 mg/L (0.0-4.9) 03/26/24 20:21 Total Protein 7.5 g/dL (6.6-8.7) 03/26/24 18:00 Albumin 4.7 g/dL (3.5-5.2) 03/26/24 18:00 Globulin 2.8 g/dL (1.3-4.6) 03/26/24 18:00 Procalcitonin 0.04 ng/mL (0-0.5) 03/26/24 20:21 Urine Color Dark yellow (Yellow) A 03/26/24 19:58 Urine Appearance Clear (CLEAR) 03/26/24 19:58 Urine pH 5.5 (5-7) 03/26/24 19:58 Ur Specific [place] 1.034 (1.005-1.030) H 03/26/24 19:58 Urine Protein 1+ (Negative) A 03/26/24 19:58 Urine Glucose (UA) Negative (Normal) 03/26/24 19:58 Urine Ketones Negative (Negative) 03/26/24 19:58 Urine Blood Negative (Negative) 03/26/24 19:58 Urine Nitrate Negative (Negative) 03/26/24 19:58 Urine Bilirubin Negative (Negative) 03/26/24 19:58 Urine Urobilinogen 1.0 mg/dL (Negative) 03/26/24 19:58 Ur Leukocyte Esterase Trace (Negative) A 03/26/24 19:58 Urine RBC 0-2 /hpf (0-2) 03/26/24 19:58 Urine WBC 0-5 /hpf (0-5) 03/26/24 19:58 Ur Squamous Epith Cells 6-10 /hpf (0-5) 03/26/24 19:58 Amorphous Sediment Not Reportable 03/26/24 19:58 Urine Bacteria 1+ /hpf (NONE) H 03/26/24 19:58 Hyaline Casts 9.07 /lpf 03/26/24 19:58 All radiology interpretation(s) finalized by discharge Discharge Plan Discharge Patient Disposition: Home Clinical Impression: Acute lower urinary tract infection, Acute hypokalemia Nausea & vomiting Qualifiers: Vomiting type: unspecified Qualified Code(s): R11.2 - Nausea with vomiting, unspecified Condition: Stable Prescriptions: New ciprofloxacin HCl 500 mg tablet 500 mg PO Q12H Qty: 20 0RF No Action lisinopril-hydrochlorothiazide 20-25 mg tablet 1 tab PO DAILY Qty: 90 3RF escitalopram oxalate 20 mg tablet 20 mg PO DAILY Qty: 30 0RF diazepam [Valium] 5 mg tablet 5 mg PO TID PRN (Reason: muscle spasm) 7 Days Qty: 21 0RF Eliquis 5 mg tablet 5 mg PO BID Qty: 60 2RF morphine 15 mg tablet extended release 15 mg PO Q12H MDD 2 PRN (Reason: back pain) 7 Days Qty: 14 0RF bupropion HCl 300 mg tablet extended release 24 hr 300 mg PO QAM Qty: 30 5RF prednisone 20 mg tablet 60 mg PO ONCE 5 Days Qty: 15 0RF ondansetron HCl 4 mg tablet 4 mg PO Q6H PRN (Reason: nausea and vomiting) Qty: 20 0RF Discharge Orders: Discharge ED (Routine); Ordered 03/26/24 Ordered By: Mata Hicks Patient Instructions: Hypokalemia (ED), Acute Nausea and Vomiting (ED), Urinary Tract Infection - Women Activity Restrictions/Additional Instructions: A prescriptions been called to your pharmacy for an antibiotic for urinary tract infection. Please take it as directed. Please continue on with the Zofran for nausea vomiting. Please follow-up with your family practice doctor within the next 7 to 10 days for further evaluation and treatment as needed. Thank you for choosing [facility] for your healthcare needs today. Please realize that you were seen in the emergency department and that we are providing you with an emergency medical screening exam and this may not be a complete and all exclusive of all testing and/or medical workup we may need to determine your element or severity of your illness. It is very important that you follow-up as instructed with your primary care provider or specialist for the additional evaluation and to discuss your medical treatment plan. You may return to the emergency department should you have concerns or if your condition changes or worsens in any way. 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 [employer] Documented by User: Hillary Pickett MD 03/26/24 21:22 HPI - Nausea/Vomiting/Diarrhea 2 General: Chief complaint: Nausea/Vomiting/Diarrhea Stated complaint: n,v Time Seen by Provider: 03/26/24 17:20 Related Data Previous Rx's Medication Instructions Recorded lisinopril 20 1 tab PO DAILY #90 tabs 10/09/23 mg-hydrochlorothiazide 25 mg tablet apixaban 5 mg tablet (Eliquis) 5 mg PO BID #60 tabs 11/12/23 bupropion HCl 300 mg 24 hr tablet, 300 mg PO QAM #30 tabs 01/22/24 extended release morphine 15 mg tablet,extended 15 mg PO Q12H PRN back pain 7 days 01/22/24 release #14 tabs escitalopram oxalate 20 mg tablet 20 mg PO DAILY #30 tabs 03/06/24 diazepam 5 mg tablet (Valium) 5 mg PO TID PRN muscle spasm 7 03/12/24 days #21 tabs prednisone 20 mg tablet 60 mg (3 x 20 mg) PO ONCE 5 days 03/24/24 #15 tabs ondansetron HCl 4 mg tablet 4 mg PO Q6H PRN nausea and 03/25/24 vomiting #20 tabs ciprofloxacin HCl 500 mg tablet 500 mg PO Q12H #20 tabs 03/26/24 Allergies Allergy/AdvReac Type Severity Reaction Status Date / Time adhesive tape Allergy ALGY-Rash Verified 03/26/24 17:25 haloperidol [From Haldol] Allergy ADR-Irritab Verified 03/26/24 17:25 le hydrocodone Allergy ADR-Nausea Verified 03/26/24 17:25 metoclopramide [From Reglan] Allergy ADR-Itching Verified 03/26/24 17:25 promethazine [From Phenergan] Allergy ADR-Vomitin Verified 03/26/24 17:25 g PFSH ED 2 PFSH: Medical History Acute viral syndrome Opioid contract exists Encounter for long-term opiate analgesic use Chronic low back pain with sciatica Rosacea History of pulmonary embolism post op, had DVT Dyslipidemia borderline by report, not on treatment Hypertension Chronic narcotic use ~ 2yrs, for back pain Obesity BMI 39 Surgical History H/O laminectomy History of carpal tunnel release left History of D&C History of hysterectomy due to life threatening bleeding while on anticoagulation for PE/DVT History of laparoscopic adjustable gastric banding History of tonsillectomy History of back surgery (~2017) History of right knee surgery (~2008) patellar realignment Family History Father Cancer pancreatic cancer Other Diabetes Heart disease Hypertension Social History Smoking and tobacco/nicotine status: never used tobacco/nicotine Alcohol intake: never Substance/Drug Use: never Lives independently: Yes Household members: spouse Current occupational status: disabled Course 2 Vital Signs: Vital signs: Vital Signs Temperature 98.5 F 03/26/24 17:21 Pulse Rate 52 L 03/26/24 20:00 Respiratory Rate 17 03/26/24 17:45 Blood Pressure 157/97 03/26/24 20:00 Pulse Oximetry 98 03/26/24 20:00 Oxygen Delivery Me thod Room Air 03/26/24 20:00 MDM - Nausea/Vomiting/Diarrhea Medical Decision Making Patient care was transitioned me at shift change. He does have leukocytosis which have been present for the last couple times. She had received fluids, pain meds and nausea meds. Have given her some more pain medication and nausea medication prior to discharge. Lab Data 03/26/24 18:00 03/26/24 18:00 Laboratory Results WBC 20.37 10^3/uL (3.29-11.43) H 03/26/24 18:00 RBC 4.88 10^6/uL (3.85-5.65) 03/26/24 18:00 Hgb 14.10 g/dL (11.27-16.99) 03/26/24 18:00 Hct 43.3 % (36-47) 03/26/24 18:00 MCV 88.7 fl (85-98) 03/26/24 18:00 MCH 28.9 pg (27-33) 03/26/24 18:00 MCHC 32.6 g/dL (30-55) 03/26/24 18:00 RDW 14.0 % (12.1-15.1) 03/26/24 18:00 Plt Count 302 10^3/cmm (157-399) 03/26/24 18:00 MPV 10.5 fL (7.4-10.4) H 03/26/24 18:00 Neut % (Auto) 78.2 % 03/26/24 18:00 Lymph % (Auto) 14.2 % 03/26/24 18:00 [place] % (Auto) 7.1 % 03/26/24 18:00 Eos % (Auto) 0.0 % 03/26/24 18:00 Baso % (Auto) 0.1 % 03/26/24 18:00 Neut # (Auto) 15.93 10^3/uL (1.8-7.7) H 03/26/24 18:00 Lymph # (Auto) 2.9 10^3/uL (0.8-4.8) 03/26/24 18:00 [place] # (Auto) 1.4 10^3/uL (0.2-0.9) H 03/26/24 18:00 Eos # (Auto) 0.0 10^3/uL (0.0-0.8) 03/26/24 18:00 Baso # (Auto) 0.0 10^3/uL (0.0-0.1) 03/26/24 18:00 Nucleated RBC % (auto) 0 % 03/26/24 18:00 Nucleated RBCs # 0.0 /100WBC 03/26/24 18:00 Sodium 141 mmol/L (136-145) 03/26/24 18:00 Potassium 3.1 mmol/L (3.5-5.1) L 03/26/24 18:00 Chloride 100 mmol/L (98-107) 03/26/24 18:00 Carbon Dioxide 27 mmol/L (22-29) 03/26/24 18:00 Anion Gap 17.1 (5-19) 03/26/24 18:00 BUN 32 mg/dL (6-20) H 03/26/24 18:00 Creatinine 1.0 mg/dL (0.5-0.9) H 03/26/24 18:00 GFR Calculation 60.0 mL/min (90-130) L 03/26/24 18:00 Glucose 103 mg/dL (65-115) 03/26/24 18:00 Calculated Osmolality 299 mOsm/kg (285-295) H 03/26/24 18:00 Lactic Acid 1.0 mmol/L (0.5-2.2) 03/26/24 20:21 Calcium 9.8 mg/dL (8.5-10.5) 03/26/24 18:00 Magnesium 2.2 mg/dL (1.7-2.3) 03/26/24 18:00 Total Bilirubin 0.9 mg/dL (0.15-1.2) 03/26/24 18:00 AST 14 U/L (0-32) 03/26/24 18:00 ALT 13 U/L (0-33) 03/26/24 18:00 Alkaline Phosphatase 128 U/L (35-105) H 03/26/24 18:00 C-Reactive Protein 3.0 mg/L (0.0-4.9) 03/26/24 20:21 Total Protein 7.5 g/dL (6.6-8.7) 03/26/24 18:00 Albumin 4.7 g/dL (3.5-5.2) 03/26/24 18:00 Globulin 2.8 g/dL (1.3-4.6) 03/26/24 18:00 Procalcitonin 0.04 ng/mL (0-0.5) 03/26/24 20:21 Urine Color Dark yellow (Yellow) A 03/26/24 19:58 Urine Appearance Clear (CLEAR) 03/26/24 19:58 Urine pH 5.5 (5-7) 03/26/24 19:58 Ur Specific [place] 1.034 (1.005-1.030) H 03/26/24 19:58 Urine Protein 1+ (Negative) A 03/26/24 19:58 Urine Glucose (UA) Negative (Normal) 03/26/24 19:58 Urine Ketones Negative (Negative) 03/26/24 19:58 Urine Blood Negative (Negative) 03/26/24 19:58 Urine Nitrate Negative (Negative) 03/26/24 19:58 Urine Bilirubin Negative (Negative) 03/26/24 19:58 Urine Urobilinogen 1.0 mg/dL (Negative) 03/26/24 19:58 Ur Leukocyte Esterase Trace (Negative) A 03/26/24 19:58 Urine RBC 0-2 /hpf (0-2) 03/26/24 19:58 Urine WBC 0-5 /hpf (0-5) 03/26/24 19:58 Ur Squamous Epith Cells 6-10 /hpf (0-5) 03/26/24 19:58 Amorphous Sediment Not Reportable 03/26/24 19:58 Urine Bacteria 1+ /hpf (NONE) H 03/26/24 19:58 Hyaline Casts 9.07 /lpf 03/26/24 19:58 Discharge Plan Discharge Patient Disposition: Home Clinical Impression: Acute lower urinary tract infection, Acute hypokalemia Nausea & vomiting Qualifiers: Vomiting type: unspecified Qualified Code(s): R11.2 - Nausea with vomiting, unspecified Condition: Stable Prescriptions: New ciprofloxacin HCl 500 mg tablet 500 mg PO Q12H Qty: 20 0RF No Action lisinopril-hydrochlorothiazide 20-25 mg tablet 1 tab PO DAILY Qty: 90 3RF escitalopram oxalate 20 mg tablet 20 mg PO DAILY Qty: 30 0RF diazepam [Valium] 5 mg tablet 5 mg PO TID PRN (Reason: muscle spasm) 7 Days Qty: 21 0RF Eliquis 5 mg tablet 5 mg PO BID Qty: 60 2RF morphine 15 mg tablet extended release 15 mg PO Q12H MDD 2 PRN (Reason: back pain) 7 Days Qty: 14 0RF bupropion HCl 300 mg tablet extended release 24 hr 300 mg PO QAM Qty: 30 5RF prednisone 20 mg tablet 60 mg PO ONCE 5 Days Qty: 15 0RF ondansetron HCl 4 mg tablet 4 mg PO Q6H PRN (Reason: nausea and vomiting) Qty: 20 0RF Discharge Orders: Discharge ED (Routine); Ordered 03/26/24 Ordered By: Mata Hicks Patient Instructions: Hypokalemia (ED), Acute Nausea and Vomiting (ED), Urinary Tract Infection - Women Activity Restrictions/Additional Instructions: A prescriptions been called to your pharmacy for an antibiotic for urinary tract infection. Please take it as directed. Please continue on with the Zofran for nausea vomiting. Please follow-up with your family practice doctor within the next 7 to 10 days for further evaluation and treatment as needed. [facility]. Please realize that you were seen in the emergency department and that we are providing you with an emergency medical screening exam and this may not be a complete and all exclusive of all testing and/or medical workup we may need to determine your element or severity of your illness. It is very important that you follow-up as instructed with your primary care provider or specialist for the additional evaluation and to discuss your medical treatment plan. You may return to the emergency department should you have concerns or if your condition changes or worsens in any way. 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
[2024-03-26] MEDS: morphine 4 mg/mL SDV 1 mL IVP ×2 (17:45→21:22)
[2024-03-26] MEDS: diphenhydrAMINE 50 mg/mL SDV 1mL IVP (17:45)
[2024-03-26 18:25] LABS: Basophils % 0.1 %; Hematocrit 43.3 % (36-47); Lymphocytes # 2.9 10^3/uL (0.8-4.8); Lymphocytes % 14.2 %; Mean Corpuscular HGB Conc 32.6 g/dL (30-55); Mean Corpuscular Hemoglobin 28.9 pg (27-33); Mean Corpuscular Volume 88.7 fl (85-98); Mean Platelet Volume 10.5 fL (7.4-10.4); Monocytes # 1.4 10^3/uL (0.2-0.9); Monocytes % 7.1 %; Neutrophils # 15.93 10^3/uL (1.8-7.7); Neutrophils % 78.2 %; Nucleated Red Blood Cells % 0 %; Platelet Count 302 10^3/cmm (157-399); Red Blood Count 4.88 10^6/uL (3.85-5.65); White Blood Count 20.37 10^3/uL (3.29-11.43)
[2024-03-26 18:36] LABS: Alanine Aminotransferase 13 U/L (0-33); Albumin Level 4.7 g/dL (3.5-5.2); Alkaline Phosphatase 128 U/L (35-105); Anion Gap 17.1 (5-19); Aspartate Amino Transferase 14 U/L (0-32); Blood Urea Nitrogen 32 mg/dL (6-20); Calcium 9.8 mg/dL (8.5-10.5); Carbon Dioxide 27 mmol/L (22-29); Chloride 100 mmol/L (98-107); Creatinine Clr Calc Pharmacy 84.5475; Globulin 2.8 g/dL (1.3-4.6); Glucose 103 mg/dL (65-115); Magnesium 2.2 mg/dL (1.7-2.3); Osmolality Calculated 299 mOsm/kg (285-295); Potassium 3.1 mmol/L (3.5-5.1); Sodium 141 mmol/L (136-145); Total Bilirubin 0.9 mg/dL (0.15-1.2); Total Protein 7.5 g/dL (6.6-8.7)
[2024-03-26] MEDS: ondansetron 2 mg/ML SDV 2 mL 8 MG IVP ×2 (18:54→21:22)
[2024-03-26] MEDS: sodium chloride 0.9% 1,000 ML 999 ML IV (19:26)
[2024-03-26 20:05] LABS: Bilirubin Urine Negative (Negative); Blood Urine Negative (Negative); Glucose Urine UA Negative (Normal); Ketones Urine Negative (Negative); Leukocyte Esterase Urine Trace (Negative); Nitrate Urine Negative (Negative); Protein Urine 1+ (Negative); Urine Appearance Clear (CLEAR); Urine Color Dark Yellow (Yellow); pH Urine 5.5 (5-7)
[2024-03-26 20:11] LABS: Add Urine Microscopic? YES; Bacteria Urine 1+ /hpf; Hyaline Casts Urine 9.07 /lpf; RBC Urine 0-2 /hpf (0-2); WBC Urine 0-5 /hpf (0-5)
[2024-03-26 20:25] LABS: Specific Gravity, Urine 1.034 (1.005-1.030)
[2024-03-26 20:26] LABS: UA Slide Review UA Slide Review Perf
[2024-03-26] MEDS: potassium chloride ER 20 mEq Tablet 40 MEQ PO (20:54)
[2024-03-26 20:59] LABS: Procalcitonin 0.04 ng/mL (0-0.5)
== END 2024-03-26 21:42 | disposition home or self-care (01) ==
PROVIDERS: Emergency Medicine; Emergency Provider Emergency Medicine
DX: N39.0 Urinary tract infection, site not specified (principal); E87.6 Hypokalemia; Z79.01 Long term (current) use of anticoagulants; I10 Essential (primary) hypertension
CPT/HCPCS: 36415; 80053; 81001; 83605; 83735; 84145; 85025; 86140; 96374; 96375; 96376; 99284; J1200; J2270; J2405; J7030

== ENCOUNTER 2024-03-27 12:12 | Emergency (ER) | payer MEDICAID, SELFPAY ==
[2024-03-27] VITALS (8 sets, daily range): BP systolic 154–225; BP diastolic 98–143; PULSE 52–78; RESP 14–20; TEMP 36.9; O2SAT 98–100; BMI 37.8
[2024-03-27] MEDS: LORazepam 2 mg/mL INJ 1 mL IVP ×2 (12:39→15:55)
--- NOTE | 2024-03-27 12:45 | ED_ITS ---
HPI - Nausea/Vomiting/Diarrhea 2 General: Chief complaint: Nausea/Vomiting/Diarrhea Stated complaint: flu like symptoms Time Seen by Provider: 03/27/24 12:13 History of Present Illness: 43-year-old female [facility] with complaint of persistent nausea vomiting she been seen multiple times in the past week with same complaints. Last time he was seen a week given her Haldol and Ativan did seem to improve but she felt she is very irritable with the Haldol so she has declined it in the future. She has ondansetron at home which she said does not seem to be working. She has not been able to keep her medications down. She has chronic low back pain she had some leukocytosis the last several visits associated with steroid use CT done of the abdomen previously did not show any acute abnormalities. She previously has had a cholecystectomy and appendectomy. No hematemesis no coffee-ground emesis. She still has her chronic back pain it has not worsened. She denies any fever sweats or chills no dysuria urgency or frequency no hematuria Associated nausea: Yes Associated symtoms: Reports nausea; Denies chest pain or dysuria Related Data Home Medications Medication Instructions Recorded Confirmed morphine 15 mg immediate release 15 mg PO .Q4-6 03/27/24 03/27/24 tablet Previous Rx's Medication Instructions Recorded lisinopril 20 1 tab PO DAILY #90 tabs 10/09/23 mg-hydrochlorothiazide 25 mg tablet bupropion HCl 300 mg 24 hr tablet, 300 mg PO QAM #30 tabs 01/22/24 extended release morphine 15 mg tablet,extended 15 mg PO Q12H PRN back pain 7 days 01/22/24 release #14 tabs escitalopram oxalate 20 mg tablet 20 mg PO DAILY #30 tabs 03/06/24 diazepam 5 mg tablet (Valium) 5 mg PO TID PRN muscle spasm 7 03/12/24 days #21 tabs prednisone 20 mg tablet 60 mg (3 x 20 mg) PO ONCE 5 days 03/24/24 #15 tabs ondansetron HCl 4 mg tablet 4 mg PO Q6H PRN nausea and 03/25/24 vomiting #20 tabs amlodipine 5 mg tablet 5 mg PO DAILY #30 tabs 03/27/24 ciprofloxacin HCl 500 mg tablet 500 mg PO BID #14 tabs 03/27/24 (Cipro) ondansetron HCl 4 mg tablet 4 mg PO Q6H PRN nausea and 03/27/24 vomiting #20 tabs Allergies Allergy/AdvReac Type Severity Reaction Status Date / Time adhesive tape Allergy ALGY-Rash Verified 03/26/24 17:25 haloperidol [From Haldol] Allergy ADR-Irritab Verified 03/26/24 17:25 le hydrocodone Allergy ADR-Nausea Verified 03/26/24 17:25 metoclopramide [From Reglan] Allergy ADR-Itching Verified 03/26/24 17:25 promethazine [From Phenergan] Allergy ADR-Vomitin Verified 03/26/24 17:25 g Review of Systems 2 Const: Denies: fever(s) or chills Card: Denies: chest pain Resp: Denies: dyspnea GI: Reports: nausea and vomiting; Denies: abdominal pain, hematemesis, hematochezia or melena : Denies: dysuria, urinary frequency or urinary urgency Musc: Denies: neck pain or back pain Skin/Breast: Denies: rash PFSH ED 2 PFSH: Medical History (Updated 03/27/24 @ 18:16 by Jose Licona DO) Acute viral syndrome Opioid contract exists Encounter for long-term opiate analgesic use Chronic low back pain with sciatica Rosacea History of pulmonary embolism post op, had DVT Dyslipidemia borderline by report, not on treatment Hypertension Chronic narcotic use ~ 2yrs, for back pain Obesity BMI 39 Surgical History (Updated 03/27/24 @ 13:28 by Jose Licona DO) History of appendectomy History of cholecystectomy H/O laminectomy History of carpal tunnel release left History of D&C History of hysterectomy due to life threatening bleeding while on anticoagulation for PE/DVT History of laparoscopic adjustable gastric banding History of tonsillectomy History of back surgery (~2018) History of right knee surgery (~2008) patellar realignment Family History Father Cancer pancreatic cancer Other Diabetes Heart disease Hypertension Social History Smoking and tobacco/nicotine status: never used tobacco/nicotine Alcohol intake: never Substance/Drug Use: never Lives independently: Yes Household members: spouse Current occupational status: disabled Female Reproductive History: Para: 3 Spontaneous abortions: No Physical Exam 2 Const: GENERAL APPEARANCE: cooperative ORIENTATION/CONSCIOUSNESS: Yes awake, Yes oriented to person, Yes oriented to place and Yes oriented to time HENMT: COMMON NORMALS: normocephalic, atraumatic and hearing grossly normal bilaterally HEAD & SCALP: normocephalic and atraumatic Resp: COMMON NORMALS: normal respiratory effort, No retractions, No use of accessory muscles and clear to auscultation bilaterally AUSCULTATION: clear to auscultation bilaterally Cardio: COMMON NORMALS: regular rate, regular rhythm and No murmurs present (Cardio) RATE: regular rate RHYTHM: regular rhythm GI: COMMON NORMALS: Soft to palpation and No hepatosplenomegaly present A USCULTATION: Yes normoactive bowel sounds PALPATION: Yes Soft to palpation, No Tenderness to palpation present (GI), No Guarding due to palpation present (GI) and Yes No hepatosplenomegaly present Extremity: COMMON NORMALS: normal to inspection, capillary refill normal, no clubbing, cyanosis or edema, no calf tenderness and no pedal edema Neuro: SENSORIUM/ORIENTATION: Yes oriented to person, Yes oriented to place and Yes oriented to time Skin: COMMON NORMALS: no rashes or lesions noted GENERAL SKIN EXAM: no rashes or lesions noted Course 2 Vital Signs: Vital signs: Vital Signs Temperature 98.5 F 03/27/24 12:17 Pulse Rate 78 03/27/24 18:30 Respiratory Rate 18 03/27/24 18:30 Blood Pressure 154/98 03/27/24 18:30 Pulse Oximetry 99 03/27/24 18:30 Oxygen Delivery Me thod Room Air 03/27/24 17:44 MDM - Nausea/Vomiting/Diarrhea Medical Decision Making No acute finding on lab work. White count is still elevated but is decreasing still believe that is due to her steroids. Abdominal exam was benign. Previous CT unremarkable. Reviewing her pharmacy records she had not picked up the Cipro that was prescribed for her or the ondansetron. She had filled her narcotics in early February she will be due till about April 03 and . Patient is very concerned about receiving narcotics in the emergency room. I am hesitant to do so this is been a recurring issue with the last several visits. Blood pressure was elevated improved with medications given. Will start her on amlodipine 5 mg daily continue her other medications. Patient encouraged to get her ondansetron filled as well as a ciprofloxacin I resent them to [facility] so they would be open after hours and she would be able to get them. Clear liquid diet for next 24 to 48 hours and advance as tolerated follow-up with her primary care doctor also set her up to see general surgery for possible endoscopy Medical Records I reviewed the patient's medical records. Lab Data I reviewed the patient's lab results. 03/27/24 12:43 03/27/24 12:43 Laboratory Results WBC 13.58 10^3/uL (3.29-11.43) H 03/27/24 12:43 RBC 4.74 10^6/uL (3.85-5.65) 03/27/24 12:43 Hgb 14.10 g/dL (11.27-16.99) 03/27/24 12:43 Hct 43.0 % (36-47) 03/27/24 12:43 MCV 90.7 fl (85-98) 03/27/24 12:43 MCH 29.7 pg (27-33) 03/27/24 12:43 MCHC 32.8 g/dL (30-55) 03/27/24 12:43 RDW 13.7 % (12.1-15.1) 03/27/24 12:43 Plt Count 235 10^3/cmm (157-399) 03/27/24 12:43 MPV 10.0 fL (7.4-10.4) 03/27/24 12:43 Neut % (Auto) 69.9 % 03/27/24 12:43 Lymph % (Auto) 22.8 % 03/27/24 12:43 [place] % (Auto) 6.6 % 03/27/24 12:43 Eos % (Auto) 0.1 % 03/27/24 12:43 Baso % (Auto) 0.2 % 03/27/24 12:43 Neut # (Auto) 9.48 10^3/uL (1.8-7.7) H 03/27/24 12:43 Lymph # (Auto) 3.1 10^3/uL (0.8-4.8) 03/27/24 12:43 [place] # (Auto) 0.9 10^3/uL (0.2-0.9) 03/27/24 12:43 Eos # (Auto) 0.0 10^3/uL (0.0-0.8) 03/27/24 12:43 Baso # (Auto) 0.0 10^3/uL (0.0-0.1) 03/27/24 12:43 Nucleated RBC % (auto) 0 % 03/27/24 12:43 Nucleated RBCs # 0.0 /100WBC 03/27/24 12:43 PT 13.60 SECONDS (12.1-14.9) 03/27/24 12:43 INR 1.01 (0.8-1.2) 03/27/24 12:43 APTT 22.9 SECONDS (23.9-36.7) L 03/27/24 12:43 Sodium 142 mmol/L (136-145) 03/27/24 12:43 Potassium 3.2 mmol/L (3.5-5.1) L 03/27/24 12:43 Chloride 103 mmol/L (98-107) 03/27/24 12:43 Carbon Dioxide 26 mmol/L (22-29) 03/27/24 12:43 Anion Gap 16.2 (5-19) 03/27/24 12:43 BUN 25 mg/dL (6-20) H 03/27/24 12:43 Creatinine 0.9 mg/dL (0.5-0.9) 03/27/24 12:43 GFR Calculation 67.7 mL/min (90-130) L 03/27/24 12:43 Glucose 96 mg/dL (65-115) 03/27/24 12:43 Calculated Osmolality 298 mOsm/kg (285-295) H 03/27/24 12:43 Calcium 8.7 mg/dL (8.5-10.5) 03/27/24 12:43 Magnesium 2.1 mg/dL (1.7-2.3) 03/27/24 12:43 Total Bilirubin 1.1 mg/dL (0.15-1.2) 03/27/24 12:43 AST 17 U/L (0-32) 03/27/24 12:43 ALT 14 U/L (0-33) 03/27/24 12:43 Alkaline Phosphatase 116 U/L (35-105) H 03/27/24 12:43 Total Protein 7.3 g/dL (6.6-8.7) 03/27/24 12:43 Albumin 4.3 g/dL (3.5-5.2) 03/27/24 12:43 Globulin 3.0 g/dL (1.3-4.6) 03/27/24 12:43 Salicylates < 0.3 mg/dL (3-10) L 03/27/24 12:43 Acetaminophen < 5.0 ug/mL (10-30) L 03/27/24 12:43 Ethyl Alcohol < 10 mg/dL (0-10) 03/27/24 12:43 Serum Ketones Negative (Negative) 03/27/24 12:43 Coronavirus (PCR) Negative (Negative) 03/27/24 12:40 Influenza A (PCR) Negative (Negative) 03/27/24 12:40 Influenza Type B (PCR) Negative (Negative) 03/27/24 12:40 RSV (PCR) Negative (Negative) 03/27/24 12:40 No radiology studies performed this visit Discharge Plan Discharge Patient Disposition: Home Clinical Impression: HTN (hypertension) Nausea & vomiting Qualifiers: Vomiting type: unspecified Qualified Code(s): R11.2 - Nausea with vomiting, unspecified Condition: Stable Prescriptions: New amlodipine 5 mg tablet 5 mg PO DAILY Qty: 30 0RF ondansetron HCl 4 mg tablet 4 mg PO Q6H PRN (Reason: nausea and vomiting) Qty: 20 0RF ciprofloxacin HCl [Cipro] 500 mg tablet 500 mg PO BID Qty: 14 0RF No Action lisinopril-hydrochlorothiazide 20-25 mg tablet 1 tab PO DAILY Qty: 90 3RF escitalopram oxalate 20 mg tablet 20 mg PO DAILY Qty: 30 0RF diazepam [Valium] 5 mg tablet 5 mg PO TID PRN (Reason: muscle spasm) 7 Days Qty: 21 0RF morphine 15 mg tablet extended release 15 mg PO Q12H MDD 2 PRN (Reason: back pain) 7 Days Qty: 14 0RF bupropion HCl 300 mg tablet extended release 24 hr 300 mg PO QAM Qty: 30 5RF prednisone 20 mg tablet 60 mg PO ONCE 5 Days Qty: 15 0RF ondansetron HCl 4 mg tablet 4 mg PO Q6H PRN (Reason: nausea and vomiting) Qty: 20 0RF morphine 15 mg tablet 15 mg PO .Q4-6 Discharge Orders: Discharge ED (Routine); Ordered 03/27/24 Ordered By: Jose Licona Discharge Diet: Clear Liquid Discharge Activity: Increase activity as tolerated Patient Instructions: Opioid Safety, Pain Management Activity Restrictions/Additional Instructions: Thank you for choosing [facility] for your healthcare needs today. It is very important that you follow up as instructed or that you return to the Emergency Department should you have concerns or if your condition changes or worsens in any way. You were seen with persistent nausea and vomiting laboratory test showed your white count is improved but still mildly elevated. This is likely due to the steroids. Your blood pressure was also noted to be elevated while you are in the emergency room. Recommend he start amlodipine 5 mg daily. We contacted the pharmacy you had not picked up the antiemetics and antibiotics that were sent in from your previous visits. Encourage you to pick these up to help treat your nausea and vomiting at home. Coding Level of Care Code ED [employer] Faculty Member for Zabrina Burgess
[2024-03-27 12:47] LABS: Basophils % 0.2 %; Eosinophils % 0.1 %; Lymphocytes # 3.1 10^3/uL (0.8-4.8); Lymphocytes % 22.8 %; Mean Corpuscular HGB Conc 32.8 g/dL (30-55); Mean Corpuscular Hemoglobin 29.7 pg (27-33); Mean Corpuscular Volume 90.7 fl (85-98); Monocytes # 0.9 10^3/uL (0.2-0.9); Monocytes % 6.6 %; Neutrophils # 9.48 10^3/uL (1.8-7.7); Neutrophils % 69.9 %; Nucleated Red Blood Cells % 0 %; Platelet Count 235 10^3/cmm (157-399); Red Blood Count 4.74 10^6/uL (3.85-5.65); Red Cell Distribution Width 13.7 % (12.1-15.1); White Blood Count 13.58 10^3/uL (3.29-11.43)
[2024-03-27 13:01] LABS: INR 1.01 (0.8-1.2); Ketone (Acetest) Serum Negative (Negative)
[2024-03-27 13:02] LABS: Partial Thromboplastin Time 22.9 SECONDS (23.9-36.7)
[2024-03-27 13:07] LABS: Alanine Aminotransferase 14 U/L (0-33); Albumin Level 4.3 g/dL (3.5-5.2); Alkaline Phosphatase 116 U/L (35-105); Anion Gap 16.2 (5-19); Aspartate Amino Transferase 17 U/L (0-32); Blood Urea Nitrogen 25 mg/dL (6-20); Calcium 8.7 mg/dL (8.5-10.5); Carbon Dioxide 26 mmol/L (22-29); Chloride 103 mmol/L (98-107); Creatinine Clr Calc Pharmacy 93.9417; Glomerular Filtration Rate 67.7 mL/min (90-130); Glucose 96 mg/dL (65-115); Magnesium 2.1 mg/dL (1.7-2.3); Osmolality Calculated 298 mOsm/kg (285-295); Potassium 3.2 mmol/L (3.5-5.1); Sodium 142 mmol/L (136-145); Total Bilirubin 1.1 mg/dL (0.15-1.2); Total Protein 7.3 g/dL (6.6-8.7)
--- NOTE | 2024-03-27 13:08 | PC.PHAR ---
Addendum entered by Rocio Beach 03/27/24 13:10: patient is both on ER and IR morphine Original Note: patient states she no longer takes eliquis 5mg, i made double sure that she didnt get any replacement blood thinners in place of it she said it just ran its course and was no longer needed. also patient said it has been awhile since shes taken any of her meds
[2024-03-27 13:11] LABS: Acetaminophen < 5.0 ug/mL (10-30); Alcohol Level < 10 mg/dL (0-10); Salicylate < 0.3 mg/dL (3-10)
[2024-03-27] MEDS: sodium chloride 0.9% 1,000 ML 999 ML IV (13:32)
[2024-03-27 13:34] LABS: Covid PCR NEGATIVE (Negative); Influenza A NEGATIVE (Negative); Influenza B NEGATIVE (Negative); Respiratory Syncytial Virus Ce NEGATIVE (Negative)
[2024-03-27] MEDS: ondansetron 2 mg/ML SDV 2 mL 4 MG IVP (14:53)
[2024-03-27] MEDS: ketorolac 30 mg/mL INJ IVP (15:55)
[2024-03-27] MEDS: hyDRALAzine 20 mg/mL INJ 1 mL 10 MG IVP ×2 (17:05→17:47)
== END 2024-03-27 18:30 | disposition home or self-care (01) ==
PROVIDERS: Emergency Provider Family Medicine
DX: R11.2 Nausea with vomiting, unspecified (principal); I10 Essential (primary) hypertension; Z11.52 Encounter for screening for COVID-19
CPT/HCPCS: 0241U; 36415; 80053; 80307; 82009; 83735; 85025; 85610; 85730; 96374; 96375; 96376; 99284; J0360; J1885; J2060; J2405; J7030

== ENCOUNTER 2024-03-29 01:54 | Emergency (ER) | payer MEDICAID, SELFPAY ==
[2024-03-29 02:09] VITALS: BP 163/100; PULSE 77; RESP 18; TEMP 37.1; O2SAT 97; BMI 44.3
[2024-03-29 03:25] LABS: Basophils # 0.1 10^3/uL (0.0-0.1); Basophils % 0.5 %; Eosinophils # 0.1 10^3/uL (0.0-0.8); Eosinophils % 0.5 %; Hematocrit 44.7 % (36-47); Lymphocytes # 2.5 10^3/uL (0.8-4.8); Lymphocytes % 16.2 %; Mean Corpuscular HGB Conc 32.4 g/dL (30-55); Mean Corpuscular Hemoglobin 28.9 pg (27-33); Mean Corpuscular Volume 89.2 fl (85-98); Mean Platelet Volume 10.5 fL (7.4-10.4); Monocytes % 6.6 %; Neutrophils % 75.7 %; Nucleated Red Blood Cells % 0 %; Platelet Count 289 10^3/cmm (157-399); Red Blood Count 5.01 10^6/uL (3.85-5.65); Red Cell Distribution Width 13.2 % (12.1-15.1); White Blood Count 15.19 10^3/uL (3.29-11.43)
[2024-03-29] MEDS: ondansetron 2 mg/ML SDV 2 mL 8 MG IVP (03:30)
[2024-03-29 03:31] VITALS: RESP 16; O2SAT 100
[2024-03-29] MEDS: morphine 4 mg/mL SDV 1 mL IVP ×2 (03:31→06:19)
[2024-03-29 03:35] LABS: Alanine Aminotransferase 36 U/L (0-33); Albumin Level 4.4 g/dL (3.5-5.2); Alkaline Phosphatase 136 U/L (35-105); Anion Gap 18.2 (5-19); Aspartate Amino Transferase 32 U/L (0-32); Blood Urea Nitrogen 18 mg/dL (6-20); C Reactive Protein 3.1 mg/L (0.0-4.9); Calcium 8.9 mg/dL (8.5-10.5); Carbon Dioxide 24 mmol/L (22-29); Chloride 102 mmol/L (98-107); Creatinine Clr Calc Pharmacy 96.0112; Globulin 3.4 g/dL (1.3-4.6); Glomerular Filtration Rate 77.6 mL/min (90-130); Glucose 122 mg/dL (65-115); Lipase 21 U/L (13-60); Osmolality Calculated 295 mOsm/kg (285-295); Potassium 3.2 mmol/L (3.5-5.1); Sodium 141 mmol/L (136-145); Total Protein 7.8 g/dL (6.6-8.7)
[2024-03-29 03:36] LABS: Lactic Sepsis W/Reflex 1.5 mmol/L (0.5-2.2)
--- NOTE | 2024-03-29 03:59 | ED_ITS ---
HPI - Nausea/Vomiting/Diarrhea 2 General: Chief complaint: Nausea/Vomiting/Diarrhea Stated complaint: n/v Time Seen by Provider: 03/29/24 03:18 History of Present Illness: 43-year-old female here for the fifth ti me in the last few days. She complains of ongoing nausea and vomiting. She believes this is stress related. She has been seen here multiple times, given multiple medications. She has listed adverse events to several antiemetics. She is on morphine chronically, and has not been able to take her morphine because of the vomiting she says. Because of this, there may be some opioid withdrawal involvement. She denies fever. She denies significant diarrhea. She has generalized abdominal pain from vomiting. She continues to vomit in the room. Related Data Home Medications Medication Instructions Recorded Confirmed morphine 15 mg immediate release 15 mg PO .Q4-6 03/27/24 03/27/24 tablet Previous Rx's Medication Instructions Recorded lisinopril 20 1 tab PO DAILY #90 tabs 10/09/23 mg-hydrochlorothiazide 25 mg tablet bupropion HCl 300 mg 24 hr tablet, 300 mg PO QAM #30 tabs 01/22/24 extended release morphine 15 mg tablet,extended 15 mg PO Q12H PRN back pain 7 days 01/22/24 release #14 tabs escitalopram oxalate 20 mg tablet 20 mg PO DAILY #30 tabs 03/06/24 diazepam 5 mg tablet (Valium) 5 mg PO TID PRN muscle spasm 7 03/12/24 days #21 tabs amlodipine 5 mg tablet 5 mg PO DAILY #30 tabs 03/27/24 ciprofloxacin HCl 500 mg tablet 500 mg PO BID #14 tabs 03/27/24 (Cipro) ondansetron HCl 4 mg tablet 4 mg PO Q6H PRN nausea and 03/27/24 vomiting #20 tabs olanzapine 20 mg disintegrating 20 mg PO BID #7 tabs 03/29/24 tablet (Zyprexa Zydis) ondansetron HCl 4 mg tablet 4 mg PO Q6H PRN nausea and 03/29/24 vomiting #20 tabs Allergies Allergy/AdvReac Type Severity Reaction Status Date / Time adhesive tape Allergy ALGY-Rash Verified 03/26/24 17:25 haloperidol [From Haldol] Allergy ADR-Irritab Verified 03/26/24 17:25 le hydrocodone Allergy ADR-Nausea Verified 03/26/24 17:25 metoclopramide [From Reglan] Allergy ADR-Itching Verified 03/26/24 17:25 promethazine [From Phenergan] Allergy ADR-Vomitin Verified 03/26/24 17:25 g PFSH ED 2 PFSH: Medical History Acute viral syndrome Opioid contract exists Encounter for long-term opiate analgesic use Chronic low back pain with sciatica Rosacea History of pulmonary embolism post op, had DVT Dyslipidemia borderline by report, not on treatment Hypertension Chronic narcotic use ~ 2yrs, for back pain Obesity BMI 39 Surgical History History of appendectomy History of cholecystectomy H/O laminectomy History of carpal tunnel release left History of D&C History of hysterectomy due to life threatening bleeding while on anticoagulation for PE/DVT History of laparoscopic adjustable gastric banding History of tonsillectomy History of back surgery (~2017) History of right knee surgery (~2008) patellar realignment Family History Father Cancer pancreatic cancer Other Diabetes Heart disease Hypertension Social History Smoking and tobacco/nicotine status: never used tobacco/nicotine Alcohol intake: never Substance/Drug Use: never Lives independently: Yes Household members: spouse Current occupational status: disabled Female Reproductive History: Para: 3 Spontaneous abortions: No Physical Exam 2 Const: GENERAL APPEARANCE: cooperative, anxious and ill appearing (Mildly); not frail appearing HENMT: COMMON NORMALS: normocephalic, atraumatic and Normal external nose present HEAD & SCALP: normocephalic and atraumatic FACE & SINUS: normal facial exam and face symmetric NOSE: Normal external nose present Eye: COMMON NORMALS: Equal, round and reactive pupils present and EOMs intact bilaterally PUPIL: Yes Equal, round and reactive pupils present Neck/C-Spine: GENERAL: Yes trachea midline Chest: CHEST: Yes Symmetrical chest wall rise Resp: COMMON NORMALS: normal respiratory effort, No retractions, No use of accessory muscles and clear to auscultation bilaterally AUSCULTATION: clear to auscultation bilaterally Cardio: COMMON NORMALS: regular rate and regular rhythm RATE: regular rate RHYTHM: regular rhythm GI: COMMON NORMALS: Normal to inspection, nondistended, normoactive bowel sounds present PALPATION: Yes Tenderness to palpation present (GI) (diffuse) Extremity: COMMON NORMALS: no pedal edema Neuro: CRISTEL COMA SCALE: document GCS findings Cristel coma scale eye opening: Spontaneous Cristel coma scale verbal response: Orientated [place] coma scale motor response: Obey commands [place] coma scale total score: 15 S ENSORY EXAM: Yes extremities (intact) Psych: COMMON NORMALS: speech normal SPEECH: Yes normal speech Skin: COMMON NORMALS: no rashes or lesions noted GENERAL SKIN EXAM: no rashes or lesions noted Course 2 Vital Signs: Vital signs: Vital Signs Temperature 98.8 F 03/29/24 02:09 Pulse Rate 72 03/29/24 06:27 Respiratory Rate 16 03/29/24 06:19 Blood Pressure 188/115 03/29/24 06:27 Pulse Oximetry 98 03/29/24 06:27 MDM - Nausea/Vomiting/Diarrhea Medical Decision Making Patient with multiple episodes of vomiting here. She has been seen several times in the last couple of days. Her white blood cell count is 15, which is actually down from 20. Her potassium is 3.2. Bicarbonate is 24. Lactic acid is 1.5. CRP is 3. Lipase is 21. She had a CT a couple of days ago showing no significant abnormality. She has adverse events listed for Reglan, promethazine, and haloperidol. Here, she is given 8 mg of Zofran, 2 mg lorazepam, 20 mg of Zydis under her tongue. She is also given 2 L bolus. She is feeling improved. She wants to try one more dose of zofran, and to go home on a liquid diet. adding zydis to her zofran to help with nausea to take scheduled x 48h. she will return if she does poorly, and only option will be observation likely at that point. Lab Data 03/29/24 03:13 03/29/24 03:13 Laboratory Results WBC 15.19 10^3/uL (3.29-11.43) H 03/29/24 03:13 RBC 5.01 10^6/uL (3.85-5.65) 03/29/24 03:13 Hgb 14.50 g/dL (11.27-16.99) 03/29/24 03:13 Hct 44.7 % (36-47) 03/29/24 03:13 MCV 89.2 fl (85-98) 03/29/24 03:13 MCH 28.9 pg (27-33) 03/29/24 03:13 MCHC 32.4 g/dL (30-55) 03/29/24 03:13 RDW 13.2 % (12.1-15.1) 03/29/24 03:13 Plt Count 289 10^3/cmm (157-399) 03/29/24 03:13 MPV 10.5 fL (7.4-10.4) H 03/29/24 03:13 Neut % (Auto) 75.7 % 03/29/24 03:13 Lymph % (Auto) 16.2 % 03/29/24 03:13 [place] % (Auto) 6.6 % 03/29/24 03:13 Eos % (Auto) 0.5 % 03/29/24 03:13 Baso % (Auto) 0.5 % 03/29/24 03:13 Neut # (Auto) 11.50 10^3/uL (1.8-7.7) H 03/29/24 03:13 Lymph # (Auto) 2.5 10^3/uL (0.8-4.8) 03/29/24 03:13 [place] # (Auto) 1.0 10^3/uL (0.2-0.9) H 03/29/24 03:13 Eos # (Auto) 0.1 10^3/uL (0.0-0.8) 03/29/24 03:13 Baso # (Auto) 0.1 10^3/uL (0.0-0.1) 03/29/24 03:13 Nucleated RBC % (auto) 0 % 03/29/24 03:13 Nucleated RBCs # 0.0 /100WBC 03/29/24 03:13 Sodium 141 mmol/L (136-145) 03/29/24 03:13 Potassium 3.2 mmol/L (3.5-5.1) L 03/29/24 03:13 Chloride 102 mmol/L (98-107) 03/29/24 03:13 Carbon Dioxide 24 mmol/L (22-29) 03/29/24 03:13 Anion Gap 18.2 (5-19) 03/29/24 03:13 BUN 18 mg/dL (6-20) 03/29/24 03:13 Creatinine 0.8 mg/dL (0.5-0.9) 03/29/24 03:13 GFR Calculation 77.6 mL/min (90-130) L 03/29/24 03:13 Glucose 122 mg/dL (65-115) H 03/29/24 03:13 Calculated Osmolality 295 mOsm/kg (285-295) 03/29/24 03:13 Lactic Acid 1.5 mmol/L (0.5-2.2) 03/29/24 03:13 Calcium 8.9 mg/dL (8.5-10.5) 03/29/24 03:13 Total Bilirubin 2.0 mg/dL (0.15-1.2) H 03/29/24 03:13 AST 32 U/L (0-32) 03/29/24 03:13 ALT 36 U/L (0-33) H 03/29/24 03:13 Alkaline Phosphatase 136 U/L (35-105) H 03/29/24 03:13 C-Reactive Protein 3.1 mg/L (0.0-4.9) 03/29/24 03:13 Total Protein 7.8 g/dL (6.6-8.7) 03/29/24 03:13 Albumin 4.4 g/dL (3.5-5.2) 03/29/24 03:13 Globulin 3.4 g/dL (1.3-4.6) 03/29/24 03:13 Lipase 21 U/L (13-60) 03/29/24 03:13 No radiology studies performed this visit Discharge Plan Discharge Patient Disposition: Home Clinical Impression: Nausea & vomiting Qualifiers: Vomiting type: unspecified Qualified Code(s): R11.2 - Nausea with vomiting, unspecified Condition: Stable Prescriptions: New olanzapine [Zyprexa Zydis] 20 mg tablet,disintegrating 20 mg PO BID Qty: 7 0RF Continued ondansetron HCl 4 mg tablet 4 mg PO Q6H PRN (Reason: nausea and vomiting) Qty: 20 0RF No Action lisinopril-hydrochlorothiazide 20-25 mg tablet 1 tab PO DAILY Qty: 90 3RF escitalopram oxalate 20 mg tablet 20 mg PO DAILY Qty: 30 0RF diazepam [Valium] 5 mg tablet 5 mg PO TID PRN (Reason: muscle spasm) 7 Days Qty: 21 0RF morphine 15 mg tablet extended release 15 mg PO Q12H MDD 2 PRN (Reason: back pain) 7 Days Qty: 14 0RF bupropion HCl 300 mg tablet extended release 24 hr 300 mg PO QAM Qty: 30 5RF morphine 15 mg tablet 15 mg PO .Q4-6 amlodipine 5 mg tablet 5 mg PO DAILY Qty: 30 0RF ondansetron HCl 4 mg tablet 4 mg PO Q6H PRN (Reason: nausea and vomiting) Qty: 20 0RF ciprofloxacin HCl [Cipro] 500 mg tablet 500 mg PO BID Qty: 14 0RF Discharge Orders: Discharge ED (Routine); Ordered 03/29/24 Ordered By: Rio Crow Patient Instructions: Opioid Safety, Pain Management, Vomiting - Adult Activity Restrictions/Additional Instructions: Take the olanzapine scheduled twice daily whether you feel nauseated or not for the first 48 hours, then you may take it as needed. Do the same with the Zofran every 4 hours while awake for the next 48 hours whether you feel nauseated or not, then as needed. Follow a liquid diet for at least the first 24 hours. Return for problems. Coding Level of Care Code ED [employer] Blender for Zabrina Burgess
[2024-03-29] MEDS: diphenhydrAMINE 50 mg/mL SDV 1mL 25 MG IVP (04:31)
[2024-03-29] MEDS: LORazepam 2 mg/mL INJ 1 mL IVP (04:33)
[2024-03-29] MEDS: OLANZapine 10 mg ODT 20 MG PO (04:38)
[2024-03-29] MEDS: sodium chloride 0.9% 1,000 ML 999 ML IV ×2 (04:39→04:59)
[2024-03-29] MEDS: labetalol 5 mg/mL SDV 20mL 20 MG IVP (04:58)
[2024-03-29] MEDS: amlodipine 10 mg Tablet PO (04:59)
[2024-03-29] MEDS: lisinopril 20 mg Tablet PO (04:59)
[2024-03-29 05:02] VITALS: BP 189/115; PULSE 65; O2SAT 99
[2024-03-29] MEDS: ondansetron 2 mg/ML SDV 2 mL 8 MG IV (06:14)
[2024-03-29] MEDS: diphenhydrAMINE 50 mg/mL SDV 1mL IVP (06:18)
[2024-03-29 06:19] VITALS: RESP 16; O2SAT 99
[2024-03-29 06:27] VITALS: BP 188/115; PULSE 72; O2SAT 98
== END 2024-03-29 06:28 | disposition home or self-care (01) ==
PROVIDERS: Emergency Provider Emergency Medicine
DX: R11.2 Nausea with vomiting, unspecified (principal); I10 Essential (primary) hypertension
CPT/HCPCS: 80053; 83605; 83690; 85025; 86140; 96361; 96374; 96375; 96376; 99284; J1200; J2060; J2270; J2405; J3490; J7030

== ENCOUNTER 2024-03-31 10:28 | Emergency (ER) | payer MEDICAID, SELFPAY ==
[2024-03-31 10:47] VITALS: BP 160/54; PULSE 78; RESP 18; TEMP 36.8; O2SAT 100; BMI 37.8
[2024-03-31] MEDS: sodium chloride 0.9% 1,000 ML 999 ML IV (11:35)
--- NOTE | 2024-03-31 11:52 | W.ED.NAVMDI ---
HPI - Nausea/Vomiting/Diarrhea General: Chief complaint: Nausea/Vomiting/Diarrhea Stated complaint: NV, weak, heart racing, unable to eat Time Seen by Provider: 03/31/24 11:52 History of Present Illness: 43-year-old female presents emergency room with cyclical like vomiting. She has been in and out of the ER several times before she has had this multiple times in the past as well including [place] hospital[place]. She is not had any hematemesis or coffee-ground emesis no fever sweats or chills she denies the use of any medical marijuana. She had previously been on narcotics chronically for back pain but she is not taking them at this point. She states she is throwing up too much we tried various home remedies for she says none of them have helped. No fever sweats or chills no productive cough no shortness of breath Associated nausea: Yes Associated symtoms: Reports nausea; Denies chest pain or dysuria Related Data Home Medications Medication Instructions Recorded Confirmed morphine 15 mg immediate release 15 mg PO .Q4-6 03/27/24 03/31/24 tablet Previous Rx's Medication Instructions Recorded lisinopril 20 1 tab PO DAILY #90 tabs 10/09/23 mg-hydrochlorothiazide 25 mg tablet bupropion HCl 300 mg 24 hr tablet, 300 mg PO QAM #30 tabs 01/22/24 extended release morphine 15 mg tablet,extended 15 mg PO Q12H PRN back pain 7 days 01/22/24 release #14 tabs escitalopram oxalate 20 mg tablet 20 mg PO DAILY #30 tabs 03/06/24 diazepam 5 mg tablet (Valium) 5 mg PO TID PRN muscle spasm 7 03/12/24 days #21 tabs amlodipine 5 mg tablet 5 mg PO DAILY #30 tabs 03/27/24 ciprofloxacin HCl 500 mg tablet 500 mg PO BID #14 tabs 03/27/24 (Cipro) ondansetron HCl 4 mg tablet 4 mg PO Q6H PRN nausea and 03/27/24 vomiting #20 tabs olanzapine 20 mg disintegrating 20 mg PO BID #7 tabs 03/29/24 tablet (Zyprexa Zydis) Allergies Allergy/AdvReac Type Severity Reaction Status Date / Time adhesive tape Allergy ALGY-Rash Verified 04/02/24 06:09 haloperidol [From Haldol] Allergy ADR-Irritab Verified 04/02/24 06:09 le hydrocodone Allergy ADR-Nausea Verified 04/02/24 06:09 metoclopramide [From Reglan] Allergy ADR-Itching Verified 04/02/24 06:09 promethazine [From Phenergan] Allergy ADR-Vomitin Verified 04/02/24 06:09 g Review of Systems Const: Denies: fever(s) or chills Card: Denies: chest pain Resp: Denies: dyspnea GI: Reports: abdominal pain, nausea and vomiting : Denies: dysuria, urinary frequency or urinary urgency Musc: Reports: back pain (Chronic); Denies: neck pain Skin/Breast: Denies: rash PFSH ED PFSH: Medical History Acute viral syndrome Opioid contract exists Encounter for long-term opiate analgesic use Chronic low back pain with sciatica Rosacea History of pulmonary embolism post op, had DVT Dyslipidemia borderline by report, not on treatment Hypertension Chronic narcotic use ~ 2yrs, for back pain Obesity BMI 39 Surgical History History of appendectomy History of cholecystectomy H/O laminectomy History of carpal tunnel release left History of D&C History of hysterectomy due to life threatening bleeding while on anticoagulation for PE/DVT History of laparoscopic adjustable gastric banding History of tonsillectomy History of back surgery (~2017) History of right knee surgery (~2008) patellar realignment Family History Father Cancer pancreatic cancer Other Diabetes Heart disease Hypertension Social History Smoking and tobacco/nicotine status: never used tobacco/nicotine Alcohol intake: never Substance/Drug Use: never Lives independently: Yes Household members: spouse Current occupational status: disabled Female Reproductive History: Para: 3 Spontaneous abortions: No Physical Exam Const: GENERAL APPEARANCE: not cooperative ORIENTATION/CONSCIOUSNESS: Yes awake, Yes oriented to person, Yes oriented to place and Yes oriented to time HENMT: COMMON NORMALS: normocephalic, atraumatic and hearing grossly normal bilaterally HEAD & SCALP: normocephalic and atraumatic Resp: COMMON NORMALS: normal respiratory effort, No retractions, No use of accessory muscles and clear to auscultation bilaterally AUSCULTATION: clear to auscultation bilaterally Cardio: COMMON NORMALS: regular rate, regular rhythm and No murmurs present (Cardio) RATE: regular rate RHYTHM: regular rhythm GI: COMMON NORMALS: Soft to palpation and No hepatosplenomegaly present AUSCULTATION: Yes normoactive bowel sounds PALPATION: Yes Soft to palpation, No Tenderness to palpation present (GI), No Guarding due to palpation present (GI) and Yes No hepatosplenomegaly present Extremity: COMMON NORMALS: normal to inspection, capillary refill normal, no clubbing, cyanosis or edema, no calf tenderness and no pedal edema Neuro: SENSORIUM/ORIENTATION: Yes oriented to person, Yes oriented to place and Yes oriented to time Skin: COMMON NORMALS: no rashes or lesions noted GENERAL SKIN EXAM: no rashes or lesions noted Course Vital Signs: Vital signs: Vital Signs Temperature 98.2 F 03/31/24 10:47 Pulse Rate 107 H 03/31/24 14:34 Respiratory Rate 18 03/31/24 10:47 Blood Pressure 154/117 03/31/24 14:34 Pulse Oximetry 99 03/31/24 14:34 Oxygen Delivery Me thod Room Air 03/31/24 12:00 MDM - Nausea/Vomiting/Diarrhea Medical Decision Making Patient is significantly hypokalemic has persistent nausea and vomiting she had side effects from Haldol we had previously had some improvement with her nausea with that at a lower dose. She was given Ativan and Haldol. She still is having some nausea and vomiting. We have given her fluids and have also started IV potassium supplement the plan was to admit her. She is very anxious and now wants to leave. Had a very lunba conversation with the patient that is difficult for us to help her if she continues to sabotage her care by refusing medications and now leaving AMA. She said she just wants to go home and take a shower and sit in her own home. She is still nauseous still keeping a emesis basin nearby. At this point is difficult to know how to continue to treat her as an outpatient. CT of your abdomen is repeated did not show any acute findings. She still does have elevation of her white count to think is probably in part demargination from persistent vomiting. She has not been able to give us a urine to this point. Her creatinine and BUN are in normal ranges. I still think at this point she would be best served for her by placing her on observation continuing IV fluids and antiemetics. Despite all this encouragement she is refusing and wants to go home. She understands that her potassium low for his lower aid could be very dangerous. She should not take her hydrochlorothiazide and lisinopril at this point if she continues to vomit. Lab Data 03/31/24 11:36 03/31/24 11:36 Radiology Impressions Abdomen/Pelvis CT 03/31/24 12:55 IMPRESSION: 1. No acute findings. 2. Left lateral spigelian hernia which contains fat. Laboratory Results WBC 17.87 10^3/uL (3.29-11.43) H 03/31/24 11:36 RBC 5.07 10^6/uL (3.85-5.65) 03/31/24 11:36 Hgb 14.70 g/dL (11.27-16.99) 03/31/24 11:36 Hct 46.1 % (36-47) 03/31/24 11:36 MCV 90.9 fl (85-98) 03/31/24 11:36 MCH 29.0 pg (27-33) 03/31/24 11:36 MCHC 31.9 g/dL (30-55) 03/31/24 11:36 RDW 13.3 % (12.1-15.1) 03/31/24 11:36 Plt Count 243 10^3/cmm (157-399) 03/31/24 11:36 MPV 10.9 fL (7.4-10.4) H 03/31/24 11:36 Neut % (Auto) 80.5 % 03/31/24 11:36 Lymph % (Auto) 12.5 % 03/31/24 11:36 [place] % (Auto) 4.9 % 03/31/24 11:36 Eos % (Auto) 0.8 % 03/31/24 11:36 Baso % (Auto) 0.4 % 03/31/24 11:36 Neut # (Auto) 14.38 10^3/uL (1.8-7.7) H 03/31/24 11:36 Lymph # (Auto) 2.2 10^3/uL (0.8-4.8) 03/31/24 11:36 [place] # (Auto) 0.9 10^3/uL (0.2-0.9) 03/31/24 11:36 Eos # (Auto) 0.2 10^3/uL (0.0-0.8) 03/31/24 11:36 Baso # (Auto) 0.1 10^3/uL (0.0-0.1) 03/31/24 11:36 Nucleated RBC % (auto) 0 % 03/31/24 11:36 Nucleated RBCs # 0.0 /100WBC 03/31/24 11:36 Sodium 139 mmol/L (136-145) 03/31/24 11:36 Potassium 2.9 mmol/L (3.5-5.1) L 03/31/24 11:36 Chloride 99 mmol/L (98-107) 03/31/24 11:36 Carbon Dioxide 24 mmol/L (22-29) 03/31/24 11:36 Anion Gap 18.9 (5-19) 03/31/24 11:36 BUN 17 mg/dL (6-20) 03/31/24 11:36 Creatinine 0.9 mg/dL (0.5-0.9) 03/31/24 11:36 GFR Calculation 67.7 mL/min (90-130) L 03/31/24 11:36 Glucose 109 mg/dL (65-115) 03/31/24 11:36 Calculated Osmolality 290 mOsm/kg (285-295) 03/31/24 11:36 Calcium 9.2 mg/dL (8.5-10.5) 03/31/24 11:36 Total Bilirubin 1.1 mg/dL (0.15-1.2) 03/31/24 11:36 AST 17 U/L (0-32) 03/31/24 11:36 ALT 30 U/L (0-33) 03/31/24 11:36 Alkaline Phosphatase 143 U/L (35-105) H 03/31/24 11:36 Total Protein 7.8 g/dL (6.6-8.7) 03/31/24 11:36 Albumin 4.5 g/dL (3.5-5.2) 03/31/24 11:36 Globulin 3.3 g/dL (1.3-4.6) 03/31/24 11:36 Lipase 17 U/L (13-60) 03/31/24 11:36 Serum Ketones Negative (Negative) 03/31/24 11:36 All radiology interpretation(s) finalized by discharge Discharge Plan Discharge Patient Disposition: Left Against Medical Advice Clinical Impression: Acute hypokalemia, HTN (hypertension) Nausea & vomiting Qualifiers: Vomiting type: unspecified Qualified Code(s): R11.2 - Nausea with vomiting, unspecified Condition: Stable Prescriptions: No Action lisinopril-hydrochlorothiazide 20-25 mg tablet 1 tab PO DAILY Qty: 90 3RF escitalopram oxalate 20 mg tablet 20 mg PO DAILY Qty: 30 0RF diazepam [Valium] 5 mg tablet 5 mg PO TID PRN (Reason: muscle spasm) 7 Days Qty: 21 0RF morphine 15 mg tablet extended release 15 mg PO Q12H MDD 2 PRN (Reason: back pain) 7 Days Qty: 14 0RF bupropion HCl 300 mg tablet extended release 24 hr 300 mg PO QAM Qty: 30 5RF morphine 15 mg tablet 15 mg PO .Q4-6 amlodipine 5 mg tablet 5 mg PO DAILY Qty: 30 0RF ondansetron HCl 4 mg tablet 4 mg PO Q6H PRN (Reason: nausea and vomiting) Qty: 20 0RF ciprofloxacin HCl [Cipro] 500 mg tablet 500 mg PO BID Qty: 14 0RF olanzapine [Zyprexa Zydis] 20 mg tablet,disintegrating 20 mg PO BID Qty: 7 0RF Activity Restrictions/Additional Instructions: We were planning to admit you today for the persistent nausea and vomiting and hypokalemia. You chose to leave AGAINST MEDICAL ADVICE. Would recommend that you do not take your lisinopril hydrochlorothiazide your potassium is quite low and this will lower it further. Continued nausea vomiting also cause your potassium to be too low. At this point you should be admitted for 2 control your symptoms. You are welcome to return at any point if you wish. Coding Level of Care Code ED Substance Abuse Services Director for Zabrina Burgess
[2024-03-31 12:00] VITALS: BP 179/115; PULSE 75; O2SAT 100
[2024-03-31 12:05] LABS: Basophils # 0.1 10^3/uL (0.0-0.1); Basophils % 0.4 %; Eosinophils # 0.2 10^3/uL (0.0-0.8); Eosinophils % 0.8 %; Hematocrit 46.1 % (36-47); Lymphocytes # 2.2 10^3/uL (0.8-4.8); Lymphocytes % 12.5 %; Mean Corpuscular HGB Conc 31.9 g/dL (30-55); Mean Corpuscular Volume 90.9 fl (85-98); Mean Platelet Volume 10.9 fL (7.4-10.4); Monocytes # 0.9 10^3/uL (0.2-0.9); Monocytes % 4.9 %; Neutrophils # 14.38 10^3/uL (1.8-7.7); Neutrophils % 80.5 %; Nucleated Red Blood Cells % 0 %; Platelet Count 243 10^3/cmm (157-399); Red Blood Count 5.07 10^6/uL (3.85-5.65); Red Cell Distribution Width 13.3 % (12.1-15.1); White Blood Count 17.87 10^3/uL (3.29-11.43)
[2024-03-31 12:15] LABS: Alanine Aminotransferase 30 U/L (0-33); Albumin Level 4.5 g/dL (3.5-5.2); Alkaline Phosphatase 143 U/L (35-105); Anion Gap 18.9 (5-19); Aspartate Amino Transferase 17 U/L (0-32); Blood Urea Nitrogen 17 mg/dL (6-20); Calcium 9.2 mg/dL (8.5-10.5); Carbon Dioxide 24 mmol/L (22-29); Chloride 99 mmol/L (98-107); Creatinine Clr Calc Pharmacy 93.9417; Globulin 3.3 g/dL (1.3-4.6); Glomerular Filtration Rate 67.7 mL/min (90-130); Glucose 109 mg/dL (65-115); Lipase 17 U/L (13-60); Osmolality Calculated 290 mOsm/kg (285-295); Sodium 139 mmol/L (136-145); Total Bilirubin 1.1 mg/dL (0.15-1.2); Total Protein 7.8 g/dL (6.6-8.7)
[2024-03-31] MEDS: LORazepam 2 mg/mL INJ 1 mL IVP (12:37)
[2024-03-31 12:39] LABS: Potassium 2.9 mmol/L (3.5-5.1)
[2024-03-31 12:40] LABS: Slide Review Slide Review Perform
--- NOTE | 2024-03-31 12:55 | CTR_ITS ---
PROCEDURE INFORMATION: Exam: CT Abdomen And Pelvis Without Contrast Exam date and time: 03/31/2024 1:06 PM Age: 43 years old Clinical indication: Abdominal pain TECHNIQUE: Imaging protocol: Computed tomography of the abdomen and pelvis without contrast. Radiation optimization: All CT scans at this facility use at least one of these dose optimization techniques: automated exposure control; mA and/or kV adjustment per patient size (includes targeted exams where dose is matched to clinical indication); or iterative reconstruction. COMPARISON: CT abdomen pelvis w con* [id number] 03/25/2024 10:43 AM RADIATION DOSE METRICS: Total DLP (mGy-cm): 851.51 FINDINGS: Limitations: Examination is limited for the evaluation of solid organs and vascular structures due to the lack of intravenous contrast. Lungs: Lung bases are unremarkable. Liver: The liver is enlarged. Postop changes in the stomach. Gallbladder and biliary ducts: Post cholecystectomy. Pancreas: Fatty replacement of the head of the pancreas. No focal mass noted. No ductal dilation or peripancreatic inflammation. Spleen: The spleen is unremarkable. Adrenal glands: Adrenal glands are unremarkable. Kidneys and ureters: No hydronephrosis or nephrolithiasis. Contains a lobulated bilaterally. Stomach and bowel: Stomach is not fully distended. Small hiatal hernia. Small and large bowel are normal in caliber without evidence of obstruction. Appendix: There has been an appendectomy. Intraperitoneal space: No free intraperitoneal air. No fluid collection. Vasculature: There is no aortic aneurysm. Lymph nodes: No pathologically enlarged lymph nodes (by short axis size criteria). Urinary bladder: No focal wall thickening of the urinary bladder. Reproductive: There has been a hysterectomy. No adnexal cysts or masses are identified. Bones/joints: No acute osseous abnormality. There is degenerative disease of the spine. Posterior fusion of the L3, L4, L5 and S1 levels. There has also been fusion of the SI joints bilaterally. The hardware is intact. Soft tissues: Left lateral spigelian hernia between the internal and external oblique muscles. The hernia contains fat. CT/CT abdomen pelvis wo con [id number] IMPRESSION: 1. No acute findings. 2. Left lateral spigelian hernia which contains fat.
[2024-03-31] MEDS: haloperidol inj 5 mg/mL INJ 1 mL IVP (13:00)
[2024-03-31] MEDS: potassium phosphate (mEq K) 40 MEQ in sodium chloride 0.9% (100 ml) 100 ML 27.27 MEQ IV (13:22)
[2024-03-31 13:43] LABS: Ketone (Acetest) Serum Negative (Negative)
[2024-03-31] MEDS: hyDRALAzine 20 mg/mL INJ 1 mL IVP (13:59)
[2024-03-31 14:34] VITALS: BP 154/117; PULSE 107; O2SAT 99
== END 2024-03-31 14:42 | disposition left against medical advice (07) ==
PROVIDERS: Emergency Medicine; Emergency Provider Family Medicine
DX: E87.6 Hypokalemia (principal); I10 Essential (primary) hypertension; R11.2 Nausea with vomiting, unspecified
CPT/HCPCS: 74176; 80053; 82009; 83690; 85025; 96374; 96375; 99285; J0360; J1630; J2060; J7030

== ENCOUNTER 2024-04-02 06:04 | Emergency (ER) | payer MEDICAID, SELFPAY ==
[2024-04-02 06:07] VITALS: BP 173/118; PULSE 87; RESP 16; TEMP 36.7; O2SAT 100; BMI 37.8
--- NOTE | 2024-04-02 06:07 | XRR_ITS ---
PROCEDURE INFORMATION: Exam: XR Chest Exam date and time: 04/02/2024 6:28 AM Age: 43 years old Clinical indication: Cough and dyspnea; Additional info: Dyspnea/cough TECHNIQUE: Imaging protocol: Radiologic exam of the chest. Views: 1 view. COMPARISON: CR XR chest 1V portable [id number] 10/18/2023 12:23 PM FINDINGS: Tubes, catheters and devices: Removal of right PICC line. Lungs: Linear basilar infiltrates of the left lower lobe. No focal consolidation. Pleural spaces: Unremarkable. No pleural effusion. No pneumothorax. Heart/Mediastinum: Postprocedural changes of the gastroesophageal junction. Bones/joints: Unremarkable. XR/XR chest 1V portable [id number] IMPRESSION: 1. No acute cardiopulmonary findings. 2. Stable left lung base atelectasis/scarring.
--- NOTE | 2024-04-02 06:07 | ECG_ITS ---
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 Measurements Intervals [place] Rate: 73 P: 69 FL: 149 QRS: 83 QRSD: 106 T: 33 QT: 446 QTc: 492 Interpretive Statements SINUS RHYTHM WITH SINUS ARRHYTHMIA POSSIBLE LEFT ATRIAL ENLARGEMENT [-0.1mV P-WAVE IN V1/V2] NONSPECIFIC T-WAVE ABNORMALITY PROLONGED QT INTERVAL Compared to ECG 03/21/2022 18:05:34 T-wave abnormality now present Prolonged QT interval now present Electronically Signed On 04-02-2024 21:59:48 REFRIGERATOR ASSEMBLER by Fide Peacock M.D. [email or web address]
--- NOTE | 2024-04-02 06:09 | ED_ITS ---
HPI - Nausea/Vomiting/Diarrhea 2 General: Chief complaint: Abdominal Pain Stated complaint: n,v,back pain Time Seen by Provider: 04/02/24 06:06 History of Present Illness: 43-year-old female returns to the emerge ncy room was seen here several times (8 visits in the last 10 days). She was seen 2 days ago, her potassium was quite low the last time she was in we had wanted to admit her. In the past she has come in and been seen and after getting some medications and fluids she has wanted to leave. 2 days ago when she was here last when she insisted on leaving before even completing her fluids or her potassium supplement. I did have staff call and check on her yesterday around noon, the charge nurse made contact with her she said she was feeling better. Today she returns was having recurrence of her nausea and vomiting again. She feels that she did do better yesterday she been eating and drinking okay which is what she had reported to the nurse yesterday when we had called to check on her. She has had this multiple times in the past and told that she had had a long hospitalization in [place] regarding this. She had a back surgery earlier this year she was on narcotics for a time after that this at a previous visit we had looked at her pharmacy records and she had filled them around March 02 or . She tells me that she has not been able to take them for the last couple of weeks. At the last visit she said she not taken them for over a week and attributed her persistent nausea and vomiting to withdrawal. We had tried olanzapine and Ativan previously. She has also been ondansetron seems to work well. She has recorded problems with several typical antiemetics. She has Haldol listed but we have given into her several times recently and she is tolerated well. Does not have a true allergy to this. It has seemed to help her nausea and vomiting some. She has previously had a hysterectomy cholecystectomy and appendectomy. She denies any hematemesis or coffee-ground emesis. Associated nausea: Yes Associated symtoms: Reports nausea; Denies chest pain or dysuria Related Data Home Medications Medication Instructions Recorded Confirmed morphine 15 mg immediate release 15 mg PO .Q4-6H pain 03/27/24 04/02/24 tablet Previous Rx's Medication Instructions Recorded bupropion HCl 300 mg 24 hr tablet, 300 mg PO QAM #30 tabs 01/22/24 extended release morphine 15 mg tablet,extended 15 mg PO Q12H PRN back pain 7 days 01/22/24 release #14 tabs escitalopram oxalate 20 mg tablet 20 mg PO DAILY #30 tabs 03/06/24 olanzapine 20 mg disintegrating 20 mg PO BID #7 tabs 03/29/24 tablet (Zyprexa Zydis) amlodipine 5 mg tablet 5 mg PO BID Blood Pressure #60 tabs 04/02/24 lorazepam 2 mg tablet (Ativan) 2 mg buccal Q6H PRN nausea and 04/02/24 vomiting #14 tabs olanzapine 10 mg disintegrating 10 mg PO Q8H PRN nausea and 04/02/24 tablet vomiting #14 tabs pantoprazole 40 mg tablet,delayed 40 mg PO BID 40 days #80 tabs 04/02/24 release Allergies Allergy/AdvReac Type Severity Reaction Status Date / Time adhesive tape Allergy ALGY-Rash Verified 04/02/24 06:09 haloperidol [From Haldol] Allergy ADR-Irritab Verified 04/02/24 06:09 le hydrocodone Allergy ADR-Nausea Verified 04/02/24 06:09 metoclopramide [From Reglan] Allergy ADR-Itching Verified 04/02/24 06:09 promethazine [From Phenergan] Allergy ADR-Vomitin Verified 04/02/24 06:09 g Review of Systems 2 Const: Denies: fever(s) or chills Card: Denies: chest pain Resp: Denies: dyspnea GI: Reports: abdominal pain, nausea and vomiting; Denies: hematemesis, diarrhea, hematochezia or melena : Denies: flank pain, dysuria, urinary frequency or urinary urgency Musc: Reports: back pain (Chronic); Denies: neck pain Skin/Breast: Denies: rash PFSH ED 2 PFSH: Medical History Acute viral syndrome Opioid contract exists Encounter for long-term opiate analgesic use Chronic low back pain with sciatica Rosacea History of pulmonary embolism post op, had DVT Dyslipidemia borderline by report, not on treatment Hypertension Chronic narcotic use ~ 2yrs, for back pain Obesity BMI 39 Surgical History History of appendectomy History of cholecystectomy H/O laminectomy History of carpal tunnel release left History of D&C History of hysterectomy due to life threatening bleeding while on anticoagulation for PE/DVT History of laparoscopic adjustable gastric banding History of tonsillectomy History of back surgery (~2018) History of right knee surgery (~2008) patellar realignment Family History Father Cancer pancreatic cancer Other Diabetes Heart disease Hypertension Social History Smoking and tobacco/nicotine status: never used tobacco/nicotine Alcohol intake: never Substance/Drug Use: never Lives independently: Yes Household members: spouse Current occupational status: disabled Female Reproductive History: Para: 3 Spontaneous abortions: No Physical Exam 2 Const: GENERAL APPEARANCE: cooperative ORIENTATION/CONSCIOUSNESS: Yes awake, Yes oriented to person, Yes oriented to place and Yes oriented to time HENMT: COMMON NORMALS: normocephalic, atraumatic and hearing grossly normal bilaterally HEAD & SCALP: normocephalic and atraumatic Resp: COMMON NORMALS: normal respiratory effort, No retractions, No use of accessory muscles and clear to auscultation bilaterally AUSCULTATION: clear to auscultation bilaterally Cardio: COMMON NORMALS: regular rate, regular rhythm and No murmurs present (Cardio) RATE: regular rate RHYTHM: regular rhythm GI: COMMON NORMALS: Soft to palpation and No hepatosplenomegaly present A USCULTATION: Yes normoactive bowel sounds PALPATION: Yes Soft to palpation, No Tenderness to palpation present (GI), No Guarding due to palpation present (GI) and Yes No hepatosplenomegaly present Extremity: COMMON NORMALS: normal to inspection, capillary refill normal, no clubbing, cyanosis or edema, no calf tenderness and no pedal edema Neuro: SENSORIUM/ORIENTATION: Yes oriented to person, Yes oriented to place and Yes oriented to time Skin: COMMON NORMALS: no rashes or lesions noted GENERAL SKIN EXAM: no rashes or lesions noted Course 2 Vital Signs: Vital signs: Vital Signs Temperature 98.1 F 04/02/24 06:07 Pulse Rate 75 04/02/24 07:13 Respiratory Rate 16 04/02/24 06:07 Blood Pressure 183/116 04/02/24 08:40 Pulse Oximetry 100 04/02/24 08:40 Oxygen Delivery Me thod Room Air 04/02/24 06:44 MDM - Nausea/Vomiting/Diarrhea Medical Decision Making Patient has improved after Haldol and Ativan. She tolerated the Haldol well. Will discharge home on sublingual olanzapine and buccal Ativan. Some of this may be stress-induced her exam today is unremarkable her potassium is better because she is having these episodes and has developed hypokalemia recommend she stop lisinopril hydrochlorothiazide completely increase her amlodipine 5 mg twice a day. Follow-up with your primary care doctor within the next week finally added pantoprazole 40 mg twice a day for 10 days and then once a day after. Repeat urine today does not show signs of cystitis recommend to hold off on the antibiotics as I think that will just aggravate her nausea and vomiting issues. She had never filled the prescription. Medical Records I reviewed the patient's medical records. Lab Data I reviewed the patient's lab results. 04/02/24 06:17 04/02/24 06:17 Radiology Impressions Chest X-Ray 04/02/24 06:07 IMPRESSION: 1. No acute cardiopulmonary findings. 2. Stable left lung base atelectasis/scarring. Laboratory Results WBC 14.59 10^3/uL (3.29-11.43) H 04/02/24 06:17 RBC 4.68 10^6/uL (3.85-5.65) 04/02/24 06:17 Hgb 13.60 g/dL (11.27-16.99) 04/02/24 06:17 Hct 41.4 % (36-47) 04/02/24 06:17 MCV 88.5 fl (85-98) 04/02/24 06:17 MCH 29.1 pg (27-33) 04/02/24 06:17 MCHC 32.9 g/dL (30-55) 04/02/24 06:17 RDW 13.4 % (12.1-15.1) 04/02/24 06:17 Plt Count 287 10^3/cmm (157-399) 04/02/24 06:17 MPV 10.4 fL (7.4-10.4) 04/02/24 06:17 Neut % (Auto) 75.8 % 04/02/24 06:17 Lymph % (Auto) 15.6 % 04/02/24 06:17 Mckinley % (Auto) 6.7 % 04/02/24 06:17 Eos % (Auto) 1.0 % 04/02/24 06:17 Baso % (Auto) 0.4 % 04/02/24 06:17 Neut # (Auto) 11.05 10^3/uL (1.8-7.7) H 04/02/24 06:17 Lymph # (Auto) 2.3 10^3/uL (0.8-4.8) 04/02/24 06:17 Mckinley # (Auto) 1.0 10^3/uL (0.2-0.9) H 04/02/24 06:17 Eos # (Auto) 0.1 10^3/uL (0.0-0.8) 04/02/24 06:17 Baso # (Auto) 0.1 10^3/uL (0.0-0.1) 04/02/24 06:17 Nucleated RBC % (auto) 0 % 04/02/24 06:17 Nucleated RBCs # 0.0 /100WBC 04/02/24 06:17 Sodium 142 mmol/L (136-145) 04/02/24 06:17 Potassium 3.1 mmol/L (3.5-5.1) L 04/02/24 06:17 Chloride 104 mmol/L (98-107) 04/02/24 06:17 Carbon Dioxide 23 mmol/L (22-29) 04/02/24 06:17 Anion Gap 18.1 (5-19) 04/02/24 06:17 BUN 13 mg/dL (6-20) 04/02/24 06:17 Creatinine 0.7 mg/dL (0.5-0.9) 04/02/24 06:17 GFR Calculation 90.5 mL/min (90-130) 04/02/24 06:17 Glucose 122 mg/dL (65-115) H 04/02/24 06:17 Calculated Osmolality 295 mOsm/kg (285-295) 04/02/24 06:17 Calcium 9.1 mg/dL (8.5-10.5) 04/02/24 06:17 Magnesium 2.1 mg/dL (1.7-2.3) 04/02/24 06:17 Total Bilirubin 0.9 mg/dL (0.15-1.2) 04/02/24 06:17 AST 12 U/L (0-32) 04/02/24 06:17 ALT 18 U/L (0-33) 04/02/24 06:17 Alkaline Phosphatase 133 U/L (35-105) H 04/02/24 06:17 Total Protein 7.5 g/dL (6.6-8.7) 04/02/24 06:17 Albumin 4.4 g/dL (3.5-5.2) 04/02/24 06:17 Globulin 3.1 g/dL (1.3-4.6) 04/02/24 06:17 Lipase 17 U/L (13-60) 04/02/24 06:17 Urine Color Dark yellow (Yellow) A 04/02/24 07:35 Urine Appearance Cloudy (CLEAR) A 04/02/24 07:35 Urine pH 5.5 (5-7) 04/02/24 07:35 Ur Specific [place] 1.027 (1.005-1.030) 04/02/24 07:35 Urine Protein 1+ (Negative) A 04/02/24 07:35 Urine Glucose (UA) Negative (Normal) 04/02/24 07:35 Urine Ketones Trace (Negative) 04/02/24 07:35 Urine Blood Negative (Negative) 04/02/24 07:35 Urine Nitrate Negative (Negative) 04/02/24 07:35 Urine Bilirubin 1+ (Negative) H 04/02/24 07:35 Urine Urobilinogen 1.0 mg/dL (Negative) 04/02/24 07:35 Ur Leukocyte Esterase Trace (Negative) A 04/02/24 07:35 Urine WBC 0-4 /hpf (0-5) H 04/02/24 07:35 Ur Squamous Epith Cells 0-4 /hpf (0-5) H 04/02/24 07:35 Calcium Oxalate Crystal 15-25 /hpf H 04/02/24 07:35 Amorphous Sediment Not Reportable 04/02/24 07:35 Urine Bacteria 1+ /hpf (NONE) H 04/02/24 07:35 Hyaline Casts 0-4 /lpf H 04/02/24 07:35 Urine Mucus 2+ /hpf 04/02/24 07:35 All radiology interpretation(s) finalized by discharge Discharge Plan Discharge Patient Disposition: Home Clinical Impression: HTN (hypertension), Acute hypokalemia Nausea & vomiting Qualifiers: Vomiting type: unspecified Qualified Code(s): R11.2 - Nausea with vomiting, unspecified Condition: Stable Prescriptions: New olanzapine 10 mg tablet,disintegrating 10 mg PO Q8H PRN (Reason: nausea and vomiting) Qty: 14 0RF lorazepam [Ativan] 2 mg tablet 2 mg buccal Q6H PRN (Reason: nausea and vomiting) Qty: 14 0RF pantoprazole 40 mg tablet,delayed release (DR/EC) 40 mg PO BID 40 Days Qty: 80 0RF Changed amlodipine 5 mg tablet 5 mg PO BID Qty: 60 0RF Discontinued lisinopril-hydrochlorothiazide 20-25 mg tablet 1 tab PO DAILY Qty: 90 3RF No Action escitalopram oxalate 20 mg tablet 20 mg PO DAILY Qty: 30 0RF morphine 15 mg tablet extended release 15 mg PO Q12H MDD 2 PRN (Reason: back pain) 7 Days Qty: 14 0RF bupropion HCl 300 mg tablet extended release 24 hr 300 mg PO QAM Qty: 30 5RF morphine 15 mg tablet 15 mg PO .Q4-6H olanzapine [Zyprexa Zydis] 20 mg tablet,disintegrating 20 mg PO BID Qty: 7 0RF Discharge Orders: Discharge ED (Routine); Ordered 04/02/24 Ordered By: Jose Licona Discharge Diet: Clear Liquid Discharge Activity: Increase activity as tolerated Patient Instructions: Opioid Safety, Pain Management Activity Restrictions/Additional Instructions: Thank you for choosing [facility] for your healthcare needs today. It is very important that you follow up as instructed or that you return to the Emergency Department should you have concerns or if your condition changes or worsens in any way. You are seen again today for persistent nausea and vomiting. Lab test still show your potassium is mildly low but is improved from last time you are seen. Recommend that you stop the lisinopril hydrochlorothiazide. Start amlodipine regularly 5 mg twice a day additionally use buccal lorazepam and sublingually disintegrating olanzapine as needed for nausea and vomiting clear liquid diet for next 24 to 48 hours and advance as tolerated. Also strongly recommend that you follow-up with your primary care doctor for further evaluation. Finally also add pantoprazole 40 mg 1 twice a day for 10 days then daily Coding Level of Care Code ED Invas Tech for Zabrina Burgess
[2024-04-02 06:23] LABS: Basophils # 0.1 10^3/uL (0.0-0.1); Basophils % 0.4 %; Eosinophils # 0.1 10^3/uL (0.0-0.8); Hematocrit 41.4 % (36-47); Lymphocytes # 2.3 10^3/uL (0.8-4.8); Lymphocytes % 15.6 %; Mean Corpuscular HGB Conc 32.9 g/dL (30-55); Mean Corpuscular Hemoglobin 29.1 pg (27-33); Mean Corpuscular Volume 88.5 fl (85-98); Mean Platelet Volume 10.4 fL (7.4-10.4); Monocytes % 6.7 %; Neutrophils # 11.05 10^3/uL (1.8-7.7); Neutrophils % 75.8 %; Nucleated Red Blood Cells % 0 %; Platelet Count 287 10^3/cmm (157-399); Red Blood Count 4.68 10^6/uL (3.85-5.65); Red Cell Distribution Width 13.4 % (12.1-15.1); White Blood Count 14.59 10^3/uL (3.29-11.43)
[2024-04-02] MEDS: ketorolac 30 mg/mL INJ IVP (06:37)
[2024-04-02] MEDS: diphenhydrAMINE 50 mg/mL SDV 1mL IVP (06:38)
[2024-04-02 06:40] LABS: Chloride 104 mmol/L (98-107); Sodium 142 mmol/L (136-145)
[2024-04-02] MEDS: LORazepam 2 mg/mL INJ 1 mL IVP (06:41)
[2024-04-02] MEDS: sodium chloride 0.9% 1,000 ML 999 ML IV (06:43)
[2024-04-02 06:44] VITALS: BP 188/124; PULSE 79; O2SAT 100
[2024-04-02] MEDS: dexamethasone 10 mg/mL INJ IM (06:47)
[2024-04-02] MEDS: orphenadrine 30 mg/mL Inj 2 mL 60 MG IM (06:50)
[2024-04-02 06:56] LABS: Anion Gap 18.1 (5-19); Blood Urea Nitrogen 13 mg/dL (6-20); Carbon Dioxide 23 mmol/L (22-29); Creatinine Clr Calc Pharmacy 120.7821; Glomerular Filtration Rate 90.5 mL/min (90-130); Potassium 3.1 mmol/L (3.5-5.1)
[2024-04-02 06:57] LABS: Alanine Aminotransferase 18 U/L (0-33); Aspartate Amino Transferase 12 U/L (0-32); Calcium 9.1 mg/dL (8.5-10.5); Glucose 122 mg/dL (65-115); Magnesium 2.1 mg/dL (1.7-2.3); Osmolality Calculated 295 mOsm/kg (285-295); Total Bilirubin 0.9 mg/dL (0.15-1.2); Total Protein 7.5 g/dL (6.6-8.7)
[2024-04-02 06:58] LABS: Albumin Level 4.4 g/dL (3.5-5.2); Alkaline Phosphatase 133 U/L (35-105); Globulin 3.1 g/dL (1.3-4.6); Lipase 17 U/L (13-60)
[2024-04-02 07:13] VITALS: BP 197/130; PULSE 75; O2SAT 100
[2024-04-02] MEDS: hyDRALAzine 20 mg/mL INJ 1 mL 10 MG IVP (07:13)
--- NOTE | 2024-04-02 07:33 | PC.PHAR ---
Pt states has only been taking medications sporadically due to being so sick. last fill on [place] 300 er was 01/22/24 30ds, last fill on lisinopril-hydrochlorothiazide 20-25 was 11/27/23 30ds
[2024-04-02 07:49] LABS: Bilirubin Urine 1+ (Negative); Blood Urine Negative (Negative); Glucose Urine UA Negative (Normal); Ketones Urine Trace (Negative); Leukocyte Esterase Urine Trace (Negative); Nitrate Urine Negative (Negative); Protein Urine 1+ (Negative); Specific Gravity, Urine 1.027 (1.005-1.030); Urine Appearance Cloudy (CLEAR); Urine Color Dark Yellow (Yellow); pH Urine 5.5 (5-7)
[2024-04-02 07:54] LABS: Add Urine Microscopic? YES
[2024-04-02 08:03] LABS: Bacteria Urine 1+ /hpf; Hyaline Casts Urine 0-4 /lpf; Squamous Epithelial Cell Urine 0-4 /hpf (0-5); UA Manual Slide Review YES; WBC Urine 0-4 /hpf (0-5)
[2024-04-02 08:04] LABS: Add Urine Culture? No; Calcium Oxalate Crystals Urine 15-25 /hpf; Mucus Urine 2+ /hpf
[2024-04-02 08:40] VITALS: BP 183/116; O2SAT 100
[2024-04-02] MEDS: ondansetron 2 mg/ML SDV 2 mL 8 MG IVP (08:55)
== END 2024-04-02 10:42 | disposition home or self-care (01) ==
PROVIDERS: Emergency Provider Family Medicine
DX: R11.2 Nausea with vomiting, unspecified (principal); I10 Essential (primary) hypertension; E87.6 Hypokalemia
CPT/HCPCS: 71045; 80053; 81001; 83690; 83735; 85025; 93005; 96372; 96374; 96375; 99285; J0360; J1100; J1200; J1885; J2060; J2360; J2405; J7030

== ENCOUNTER 2024-06-02 20:39 | Emergency (ER) | payer MEDICAID, SELFPAY ==
[2024-06-02 20:43] VITALS: BP 187/134; PULSE 70; TEMP 36.6; O2SAT 100; BMI 35.9
--- NOTE | 2024-06-03 02:07 | ED_ITS ---
HPI - Back Pain/Injury General: Chief Complaint: Back Pain/Injury Stated Complaint: lower back swollen and pain Time Seen by Provider: 06/03/24 01:57 History of Present Illness: 44-year-old female with a history of chr onic pain syndrome with chronic back pain who is on morphine extended release and instant release at home. She said she felt a pop in her back today and now there are some muscles on the side of her back that are sore. She says her doctor told her to come here because we might be able to help her with her pain. Discussed that I will not be able to change her narcotic medications at home but we can try some anti-inflammatories and steroids at home. No saddle numbness, no urinary retention or incontinence, no focal motor deficit, no sensory deficit. no recent fever. no cough. no shortness of breath. no chest pain. no abdominal pain. no nausea or vomiting. no dysuria. no altered mental status. no edema. Related Data Home Medications Medication Instructions Recorded Confirmed morphine 15 mg immediate release 15 mg PO .Q4-6H pain 03/27/24 04/02/24 tablet Previous Rx's Medication Instructions Recorded bupropion HCl 300 mg 24 hr tablet, 300 mg PO QAM #30 tabs 01/22/24 extended release morphine 15 mg tablet,extended 15 mg PO Q12H PRN back pain 7 days 01/22/24 release #14 tabs escitalopram oxalate 20 mg tablet 20 mg PO DAILY #30 tabs 03/06/24 olanzapine 20 mg disintegrating 20 mg PO BID #7 tabs 03/29/24 tablet (Zyprexa Zydis) amlodipine 5 mg tablet 5 mg PO BID Blood Pressure #60 tabs 04/02/24 lorazepam 2 mg tablet (Ativan) 2 mg buccal Q6H PRN nausea and 04/02/24 vomiting #14 tabs olanzapine 10 mg disintegrating 10 mg PO Q8H PRN nausea and 04/02/24 tablet vomiting #14 tabs cyclobenzaprine 10 mg tablet 10 mg PO Q8H PRN muscle spasm #20 06/03/24 tabs prednisone 20 mg tablet 60 mg (3 x 20 mg) PO DAILY #20 tabs 06/03/24 Allergies Allergy/AdvReac Type Severity Reaction Status Date / Time adhesive tape Allergy ALGY-Rash Verified 06/02/24 20:50 haloperidol [From Haldol] Allergy ADR-Irritab Verified 06/02/24 20:50 le hydrocodone Allergy ADR-Nausea Verified 06/02/24 20:50 metoclopramide [From Reglan] Allergy ADR-Itching Verified 06/02/24 20:50 promethazine [From Phenergan] Allergy ADR-Vomitin Verified 06/02/24 20:50 g Review of Systems Narrative: Constitutional symptoms: Negative except as documented in HPI. Skin symptoms: Negative except as documented in HPI. Eye symptoms: Negative except as documented in HPI. ENMT symptoms: Negative except as documented in HPI. Respiratory symptoms: Negative except as documented in HPI. Cardiovascular symptoms: Negative except as documented in HPI. Gastrointestinal symptoms: Negative except as documented in HPI. Genitourinary symptoms: Negative except as documented in HPI. Musculoskeletal symptoms: Negative except as documented in HPI. Neurologic symptoms: Negative except as documented in HPI. Psychiatric symptoms: Negative except as documented in HPI. Endocrine symptoms: Negative except as documented in HPI. [facility] ED PFSH: Medical History Acute viral syndrome Opioid contract exists Encounter for long-term opiate analgesic use Chronic low back pain with sciatica Rosacea History of pulmonary embolism post op, had DVT Dyslipidemia borderline by report, not on treatment Hypertension Chronic narcotic use ~ 2yrs, for back pain Obesity BMI 39 Surgical History History of appendectomy History of cholecystectomy H/O laminectomy History of carpal tunnel release left History of D&C History of hysterectomy due to life threatening bleeding while on anticoagulation for PE/DVT History of laparoscopic adjustable gastric banding History of tonsillectomy History of back surgery (~2018) History of right knee surgery (~2008) patellar realignment Family History Father Cancer pancreatic cancer Other Diabetes Heart disease Hypertension Social History Smoking and tobacco/nicotine status: never used tobacco/nicotine Alcohol intake: never Substance/Drug Use: never Lives independently: Yes Household members: spouse Current occupational status: disabled Female Reproductive History: Para: 3 Spontaneous abortions: No Physical Exam Narrative: EXAM NARRATIVE: General: Alert, no acute distress. Head: Normocephalic Neck: Trachea midline Eye: Extraocular movements are intact. Ears, nose, mouth and throat: Oral mucosa moist Respiratory: Respirations are non-labored Musculoskeletal: Normal ROM Back: no step off, no focal tenderness, some paraspinal muscle tenderness Neurological: Alert and oriented to person, place, time, and situation, No focal neurological deficit observed. Psychiatric: Cooperative, appropriate mood & affect. Course Vital Signs: Vital signs: Vital Signs Temperature 97.8 F 06/02/24 20:43 Pulse Rate 70 06/02/24 20:43 Blood Pressure 187/134 06/02/24 20:43 Pulse Oximetry 100 06/02/24 20:43 Oxygen Delivery Me thod Room Air 06/02/24 20:43 MDM - Back Pain/Injury Medical Decision Making Assessment and plan: Chronic back pain Acute pain. ?IM Decadron, Dilaudid and Norflex in the emergency room. Adding steroids and muscle relaxers to her home regimen at this time - Discharged home - Discussed plan with patient. Answered any questions. - Evaluation and treatment of this problem were appropriate in the emergency setting. All radiology interpretation(s) finalized by discharge Discharge Plan Discharge Patient Disposition: Home Clinical Impression: Chronic back pain, Chronic pain syndrome Condition: Stable Prescriptions: New cyclobenzaprine 10 mg tablet 10 mg PO Q8H PRN (Reason: muscle spasm) Qty: 20 0RF prednisone 20 mg tablet 60 mg PO DAILY Qty: 20 0RF Rx Instructions: 3 tabs (60 mg) x 3 days. 2 tabs (40 mg) x 3 days. 1 tab (20 mg) x 3 days. 1/2 tab (10 mg) x 4 days No Action escitalopram oxalate 20 mg tablet 20 mg PO DAILY Qty: 30 0RF morphine 15 mg tablet extended release 15 mg PO Q12H MDD 2 PRN (Reason: back pain) 7 Days Qty: 14 0RF bupropion HCl 300 mg tablet extended release 24 hr 300 mg PO QAM Qty: 30 5RF morphine 15 mg tablet 15 mg PO .Q4-6H olanzapine [Zyprexa Zydis] 20 mg tablet,disintegrating 20 mg PO BID Qty: 7 0RF olanzapine 10 mg tablet,disintegrating 10 mg PO Q8H PRN (Reason: nausea and vomiting) Qty: 14 0RF lorazepam [Ativan] 2 mg tablet 2 mg buccal Q6H PRN (Reason: nausea and vomiting) Qty: 14 0RF amlodipine 5 mg tablet 5 mg PO BID Qty: 60 0RF Discharge Orders: Discharge ED (Routine); Ordered 06/03/24 Ordered By: Hillary Pickett Discharge Diet: Usual diet Discharge Activity: Increase activity as tolerated Patient Instructions: Opioid Safety, Pain Management Activity Restrictions/Additional Instructions: Thank you for choosing [facility] for your healthcare needs today. Please realize this is an emergency room and that we are providing you with a medical screening exam and this may not be complete and all inclusive of all the testing and or work up that you may need to determine your ailment or severity of your illness. You have been screened and evaluated and felt safe for discharge. Health conditions do change or evolve sometimes and as such it is important that you follow up with your Primary Doctor to be re checked, 3-5 days is a general good time frame for follow up. You are always welcome to return to the ED for re assessment if your symptoms are worsening or you have new concerns Coding Level of Care Code ED Cartographic Drafter for Zabrina Burgess
[2024-06-03 02:16] VITALS: RESP 18
[2024-06-03] MEDS: HYDROmorphone 1 mg/mL INJ 1 mL IM (02:16)
[2024-06-03] MEDS: dexamethasone 10 mg/mL INJ IM (02:16)
[2024-06-03] MEDS: orphenadrine 30 mg/mL Inj 2 mL 60 MG IM (02:17)
[2024-06-03 02:42] VITALS: PULSE 80; RESP 18; O2SAT 95
== END 2024-06-03 02:43 | disposition home or self-care (01) ==
PROVIDERS: Emergency Provider Emergency Medicine
DX: M54.9 Dorsalgia, unspecified (principal); G89.4 Chronic pain syndrome; I10 Essential (primary) hypertension
CPT/HCPCS: 96372; 99284; J1100; J1171; J2360

== ENCOUNTER 2024-07-02 12:41 | Emergency (ER) | payer MEDICAID, SELFPAY ==
[2024-07-02 12:59] VITALS: BMI 34.9
[2024-07-02] MEDS: orphenadrine 30 mg/mL Inj 2 mL 60 MG IM (17:28)
[2024-07-02] MEDS: dexamethasone 10 mg/mL INJ IM (17:28)
[2024-07-02 17:56] VITALS: BP 171/97; PULSE 78; RESP 16; O2SAT 99
--- NOTE | 2024-07-02 18:24 | ED_ITS ---
HPI - Back Pain/Injury General: Chief Complaint: Back Pain/Injury Stated Complaint: back pain Time Seen by Provider: 07/02/24 17:08 Source: patient Mode of arrival: ambulatory Limitations: no limitations History of Present Illness: Patient is a 44-year-old female who presents the emergency department for chronic low back pain. She has been seen here numerous times in the past for the same complaint, she is on morphine extended release and states that recently it has not been helping as much. She was last seen here at the beginning of May where she received Dilaudid, Decadron, and Norflex and states that this helped quite a bit. She does note that she is under a lot of stress secondary to her dying late last year. She does not report any recent injury, just states that she thinks she slept on her back wrong. She is reporting pain to the lumbar spine but primarily states is to the left lower back. She is not reporting any bowel or bladder incontinence, fevers, history of cancer, chronic steroid use, saddle anesthesia, or other neurological symptoms. She does note history of multiple lower back surgeries, has been seeing pain management. MD elicited complaint: back pain Pertinent past history: prior back pain Onset (ago): month(s) Timing: constant Similar Symptoms Previously: Yes Location: lumbar spine and left lower back Exacerbating factors: movement Associated symptoms: Deny abdominal pain, difficulty walking, fecal incontinence, fever(s) or syncope Related Data Home Medications ?Medication ?Instructions ?Recorded ?Confirmed morphine 15 mg immediate release 15 mg PO .Q4-6H pain 03/27/24 04/02/24 tablet Previous Rx's ?Medication ?Instructions ?Recorded bupropion HCl 300 mg 24 hr tablet, 300 mg PO QAM #30 t abs 01/22/24 extended release morphine 15 mg tablet,extended 15 mg PO Q12H PRN back pain 7 days 01/22/24 release #14 tabs escitalopram oxalate 20 mg tablet 20 mg PO DAILY #30 t abs 03/06/24 olanzapine 20 mg disintegrating 20 mg PO BID #7 tabs 1 05/29/23 tablet (Zyprexa Zydis) amlodipine 5 mg tablet 5 mg PO BID Blood Pressure # 60 tabs 04/02/24 lorazepam 2 mg tablet (Ativan) 2 mg buccal Q6H PRN prasanth sea and 04/02/24 vomiting #14 tabs olanzapine 10 mg disintegrating 10 mg PO Q8H PRN nause a and 04/02/24 tablet vomiting #14 tabs cyclobenzaprine 10 mg tablet 10 mg PO Q8H PRN muscle s pasm #20 06/03/24 tabs prednisone 20 mg tablet 60 mg (3 x 20 mg) PO DAILY # 20 tabs 06/03/24 Allergies Allergy/AdvReac Type Severity Reaction Status Date / Time adhesive tape Allergy ALGY-Rash Verified 07/02/24 13:02 haloperidol (From Haldol) Allergy ADR-Irritab Verified 07/02/24 13:02 le hydrocodone Allergy ADR-Nausea Verified 07/02/24 13:02 metoclopramide (From Reglan) Allergy ADR-Itching Verified 07/02/24 13:02 promethazine (From Phenergan) Allergy ADR-Vomitin Verified 07/02/24 13:02 g Review of Systems General: Reports: 10 or more systems reviewed and unremarkable except in HPI and below Const: Reports: other (denies trauma); Denies: fever(s), change in weight or night sweats Card: Denies: chest pain, lightheadedness or syncope Resp: Denies: dyspnea GI: Denies: abdominal pain or fecal incontinence : Denies: urinary incontinence Musc: Reports: back pain; Denies: neck pain or extremity pain Skin/Breast: Denies: rash or skin pain Neuro: Denies: headache(s), numbness in extremities, weakness in extremities, sensory changes, lack of coordination, difficulty walking, frequent falls or involuntary movements PFS ED PFSH: Medical History Acute viral syndrome Opioid contract exists Encounter for long-term opiate analgesic use Chronic low back pain with sciatica Rosacea History of pulmonary embolism post op, had DVT Dyslipidemia borderline by report, not on treatment Hypertension Chronic narcotic use ~ 2yrs, for back pain Obesity BMI 39 Surgical History History of appendectomy History of cholecystectomy H/O laminectomy History of carpal tunnel release left History of D&C History of hysterectomy due to life threatening bleeding while on anticoagulation for PE/DVT History of laparoscopic adjustable gastric banding History of tonsillectomy History of back surgery (~2018) History of right knee surgery (~2008) patellar realignment Family History Father Cancer pancreatic cancer Other Diabetes Heart disease Hypertension Social History Smoking and tobacco/nicotine status: never used tobacco/nicotine Alcohol intake: never Substance/Drug Use: never Lives independently: Yes Household members: spouse Current occupational status: disabled Female Reproductive History: Para: 3 Spontaneous abortions: No Physical Exam Const: COMMON NORMALS: no acute distress, patient oriented x3, no limitations, healthy appearing and alert Resp: COMMON NORMALS: normal respiratory effort, No retractions, No use of accessory muscles and clear to auscultation bilaterally AUSCULTATION: clear to auscultation bilaterally Cardio: COMMON NORMALS: regular rate, regular rhythm, S1 normal heart sound present and S2 normal heart sound present RATE: regular rate RHYTHM: regular rhythm HEART SOUNDS: S1 normal heart sound present and S2 normal heart sound present Back/Pelvis: OTHER: Postoperative lumbar spine. Minor reproducible tenderness to palpation of the left lower back as well as to the lumbar spine. Normal thoracic and cervical spine. Range of motion intact, pain with lateral rotation at the hips. Extremity: COMMON NORMALS: normal to inspection and full ROM Neuro: COMMON NORMALS: patient oriented x3, moves all extremities, no focal motor deficits, no sensory deficits noted, deep tendon reflexes 2+ bilaterally and gait normal SENSORIUM/ORIENTATION: Yes alert OTHER: L3, L4, L5, and S1 nerve sensations intact. Normal knee jerk and ankle jerk reflexes. Skin: COMMON NORMALS: no rashes or lesions noted GENERAL SKIN EXAM: no rashes or lesions noted Course Vital Signs: Vital signs: Vital Signs Pulse Rate 78 07/02/24 17:56 Respiratory Rate 16 07/02/24 17:56 Blood Pressure 171/97 07/02/24 17:56 Pulse Oximetry 99 07/02/24 17:56 Oxygen Delivery Me thod Room Air 07/02/24 12:59 MDM - Back Pain/Injury Medical Decision Making Patient presenting to the ED for chronic back pain, she has been seen here multiple times in the past. There were no new red flag symptoms to report, states that she thinks she ultimately slept on it wrong. Gave her the same medications she received last time that she reported helped quite a bit, did encourage her to follow back up with wound care as well as orthopedic/spine. She is comfortable with this plan and verbalized understanding discharge at this time. No radiology studies performed this visit Discharge Plan Discharge Patient Disposition: Home Clinical Impression: Chronic low back pain with sciatica Condition: Stable Prescriptions: No Action escitalopram oxalate 20 mg tablet 20 mg PO DAILY Qty: 30 0RF morphine 15 mg tablet extended release 15 mg PO Q12H MDD 2 PRN (Reason: back pain) 7 Days Qty: 14 0RF bupropion HCl 300 mg tablet extended release 24 hr 300 mg PO QAM Qty: 30 5RF cyclobenzaprine 10 mg tablet 10 mg PO Q8H PRN (Reason: muscle spasm) Qty: 20 0RF prednisone 20 mg tablet 60 mg PO DAILY Qty: 20 0RF Rx Instructions: 3 tabs (60 mg) x 3 days. 2 tabs (40 mg) x 3 days. 1 tab (20 mg) x 3 days. 1/2 tab (10 mg) x 4 days morphine 15 mg tablet 15 mg PO .Q4-6H olanzapine [Zyprexa Zydis] 20 mg tablet,disintegrating 20 mg PO BID Qty: 7 0RF olanzapine 10 mg tablet,disintegrating 10 mg PO Q8H PRN (Reason: nausea and vomiting) Qty: 14 0RF lorazepam [Ativan] 2 mg tablet 2 mg buccal Q6H PRN (Reason: nausea and vomiting) Qty: 14 0RF amlodipine 5 mg tablet 5 mg PO BID Qty: 60 0RF Discharge Orders: Discharge ED (Routine); Ordered 07/02/24 Ordered By: Marlo Meléndez Patient Instructions: Opioid Safety, Pain Management Activity Restrictions/Additional Instructions: Follow-up with pain management, however please call orthopedic/spine to follow- up with them as well for further evaluation. Continue taking pain medicine at home. Return with any loss of bowel or bladder function, fever, paralysis, or other concerns. Print Language: Maltese Coding Level of Care Code ED Substation Operator Helper for Zabrina Burgess
== END 2024-07-02 17:40 | disposition home or self-care (01) ==
PROVIDERS: Emergency Provider Physician Assistant
DX: M54.30 Sciatica, unspecified side (principal); M54.50 Low back pain, unspecified; E78.5 Hyperlipidemia, unspecified; I10 Essential (primary) hypertension
CPT/HCPCS: 96372; 99284; J1100; J2360

== ENCOUNTER 2024-10-03 19:32 | Emergency (ER) | payer MEDICAID, SELFPAY ==
[2024-10-03 19:45] VITALS: BP 148/89; PULSE 68; RESP 17; TEMP 36.7; O2SAT 100; BMI 35.2
[2024-10-03] MEDS: HYDROmorphone 0.5 MG/0.5 ML INJ IVP (21:45)
[2024-10-03] MEDS: dexamethasone 10 mg/mL INJ IVP (21:46)
[2024-10-03] MEDS: orphenadrine 30 mg/mL Inj 2 mL 60 MG IVP (21:47)
--- NOTE | 2024-10-03 22:04 | ED_ITS ---
Documented by User: DONALD Quinonez 10/03/24 22:10 HPI - Back Pain/Injury General: Chief Complaint: Back Pain/Injury Stated Complaint: Really Bad Lower Back Pain Time Seen by Provider: 10/03/24 20:44 Source: patient Mode of arrival: ambulatory Limitations: no limitations History of Present Illness: Patient is a 44-year-old female with history of chronic sciatica who presents the emergency department complaining of right lower back pain radiating down her right lower extremity. History of multiple back surgeries, has been seen here in the ED for similar presentations in the past. She states that today she was bending over picking up a bag of cat food when she felt a pop in her right lower back. Pain with any movement, has remained ambulatory. No bowel or bladder incontinence. Does not report any fevers, trauma, unexplained weight loss, neurological symptoms, IVDU, steroid use, or history of cancer. MD elicited complaint: back pain Pertinent past history: prior back pain and back surgery Onset (ago): hour(s) Timing: constant Severity: similar to previous episodes Similar Symptoms Previously: Yes Location: right lower back Radiation: right leg below the knee Exacerbating factors: movement Context: while lifting Associated symptoms: Deny abdominal pain, difficulty walking, fecal incontinence, fever(s) or syncope Treatments prior to arrival: prescription analgesics Work related injury: No Related Data Home Medications ?Medication ?Instructions ?Recorded ?Confirmed morphine 15 mg immediate release 15 mg PO .Q4-6H pain 03/27/24 09/27/24 tablet Previous Rx's ?Medication ?Instructions ?Recorded bupropion HCl 300 mg 24 hr tablet, 300 mg PO QAM #30 t abs 01/22/24 extended release morphine 15 mg tablet,extended 15 mg PO Q12H PRN back pain 7 days 01/22/24 release #14 tabs escitalopram oxalate 20 mg tablet 20 mg PO DAILY #30 t abs 03/06/24 olanzapine 20 mg disintegrating 20 mg PO BID #7 tabs 1 05/29/23 tablet (Zyprexa Zydis) amlodipine 5 mg tablet 5 mg PO BID Blood Pressure # 60 tabs 04/02/24 lorazepam 2 mg tablet (Ativan) 2 mg buccal Q6H PRN prasanth sea and 04/02/24 vomiting #14 tabs olanzapine 10 mg disintegrating 10 mg PO Q8H PRN nause a and 04/02/24 tablet vomiting #14 tabs cyclobenzaprine 10 mg tablet 10 mg PO Q8H PRN muscle s pasm #20 06/03/24 tabs [id number] 3.5 1 drp ophthalmic (eye) Q8H #5 mL 09/27/24 mg/mL-10,000 unit/mL-0.1% eye drops (Maxitrol) Allergies Allergy/AdvReac Type Severity Reaction Status Date / Time adhesive tape Allergy ALGY-Rash Verified 09/27/24 10:35 haloperidol (From Haldol) Allergy ADR-Irritab Verified 09/27/24 10:35 le hydrocodone Allergy ADR-Nausea Verified 09/27/24 10:35 metoclopramide (From Reglan) Allergy ADR-Itching Verified 09/27/24 10:35 promethazine (From Phenergan) Allergy ADR-Vomitin Verified 09/27/24 10:35 g Review of Systems General: Reports: 10 or more systems reviewed and unremarkable except in HPI and below Const: Reports: other (denies trauma); Denies: fever(s), change in weight or night sweats Card: Denies: chest pain, lightheadedness or syncope Resp: Denies: dyspnea GI: Denies: abdominal pain or fecal incontinence : Denies: urinary incontinence Musc: Reports: back pain and extremity pain (Right lower); Denies: neck pain Skin/Breast: Denies: rash or skin pain Neuro: Denies: headache(s), numbness in extremities, weakness in extremities, sensory changes, lack of coordination, difficulty walking, frequent falls or involuntary movements PFS ED PFSH: Medical History Acute viral syndrome Opioid contract exists Encounter for long-term opiate analgesic use Chronic low back pain with sciatica Rosacea History of pulmonary embolism post op, had DVT Dyslipidemia borderline by report, not on treatment Hypertension Chronic narcotic use ~ 2yrs, for back pain Obesity BMI 39 Surgical History History of appendectomy History of cholecystectomy H/O laminectomy History of carpal tunnel release left History of D&C History of hysterectomy due to life threatening bleeding while on anticoagulation for PE/DVT History of laparoscopic adjustable gastric banding History of tonsillectomy History of back surgery (~2018) History of right knee surgery (~2008) patellar realignment Family History Father Cancer pancreatic cancer Other Diabetes Heart disease Hypertension Social History Smoking and tobacco/nicotine status: never used tobacco/nicotine Alcohol intake: never Substance/Drug Use: never Lives independently: Yes Household members: spouse Current occupational status: disabled Female Reproductive History: Para: 3 Spontaneous abortions: No Physical Exam Const: COMMON NORMALS: no acute distress, patient oriented x3, no limitations, healthy appearing and alert Resp: COMMON NORMALS: normal respiratory effort, No retractions, No use of accessory muscles and clear to auscultation bilaterally AUSCULTATION: clear to auscultation bilaterally Cardio: COMMON NORMALS: regular rate, regular rhythm, S1 normal heart sound present and S2 normal heart sound present RATE: regular rate RHYTHM: regular rhythm HEART SOUNDS: S1 normal heart sound present and S2 normal heart sound present Back/Pelvis: OTHER: Straight leg raise positive on the right. Postoperative incision to lumbar spine. No spinous process tenderness. Easily reproducible tenderness to palpation to right lower back. Full active range of motion. Extremity: COMMON NORMALS: normal to inspection and full ROM Neuro: COMMON NORMALS: patient oriented x3, moves all extremities, no focal motor deficits, no sensory deficits noted, deep tendon reflexes 2+ bilaterally and gait normal SENSORIUM/ORIENTATION: Yes alert OTHER: L3, L4, L5, and S1 nerve sensations intact. Normal knee jerk and ankle jerk reflexes. Skin: COMMON NORMALS: no rashes or lesions noted GENERAL SKIN EXAM: no rashes or lesions noted Course Vital Signs: Vital signs: Vital Signs Temperature 98.1 F 10/03/24 19:45 Pulse Rate 68 10/03/24 19:45 Respiratory Rate 17 10/03/24 19:45 Blood Pressure 148/89 10/03/24 19:45 Pulse Oximetry 100 10/03/24 19:45 Oxygen Delivery Me thod Room Air 10/03/24 19:45 MDM - Back Pain/Injury Medical Decision Making Patient presenting with atraumatic right lower back pain, history of sciatica stating this feels similar. States that what ever she received last time here in the ED worked for her. No red flag symptoms reported, no red flag findings on exam. I suspect sciatica, she was treated with medications here will be discharged stable condition encouraged to call Ortho/spine on Saturday to get in and see them if she continues to have pain. No radiology studies performed this visit Discharge Plan Discharge Patient Disposition: Home Clinical Impression: Chronic low back pain with sciatica Qualifiers: Back pain laterality: bilateral Sciatica laterality: bilateral sciatica Qualified Code(s): M54.42 - Lumbago with sciatica, left side Condition: Stable Prescriptions: No Action escitalopram oxalate 20 mg tablet 20 mg PO DAILY Qty: 30 0RF morphine 15 mg tablet extended release 15 mg PO Q12H MDD 2 PRN (Reason: back pain) 7 Days Qty: 14 0RF bupropion HCl 300 mg tablet extended release 24 hr 300 mg PO QAM Qty: 30 5RF povidone-iodine [Betadine Swabsticks] 10 % swab 2 applic topical ONCE Qty: 1 0RF neomycin-polymyxin B-dexameth [Maxitrol] 3.5mg/mL-10,000 unit/mL-0.1 % drops,suspension 1 drp ophthalmic (eye) Q8H Qty: 5 0RF cyclobenzaprine 10 mg tablet 10 mg PO Q8H PRN (Reason: muscle spasm) Qty: 20 0RF morphine 15 mg tablet 15 mg PO .Q4-6H olanzapine [Zyprexa Zydis] 20 mg tablet,disintegrating 20 mg PO BID Qty: 7 0RF olanzapine 10 mg tablet,disintegrating 10 mg PO Q8H PRN (Reason: nausea and vomiting) Qty: 14 0RF lorazepam [Ativan] 2 mg tablet 2 mg buccal Q6H PRN (Reason: nausea and vomiting) Qty: 14 0RF amlodipine 5 mg tablet 5 mg PO BID Qty: 60 0RF Discharge Orders: Discharge ED (Routine); Ordered 10/03/24 Ordered By: Marlo Meléndez Patient Instructions: Back Pain (ED) Activity Restrictions/Additional Instructions: Continue with your home morphine. Range of motion exercises and weightbearing as tolerated. Topical IcyHot. Follow-up with regular doctor and return with any new or worsening. Print Language: Ecuadorean Coding Level of Care Code ED Line Up Machine Operator for Chg Fwd Documented by User: Rio Crow, DO 10/04/24 00:19 HPI - Back Pain/Injury General: Chief Complaint: Back Pain/Injury Stated Complaint: Really Bad Lower Back Pain Time Seen by Provider: 10/03/24 20:44 Related Data Home Medications ?Medication ?Instructions ?Recorded ?Confirmed morphine 15 mg immediate release 15 mg PO .Q4-6H pain 03/27/24 09/27/24 tablet Previous Rx's ?Medication ?Instructions ?Recorded bupropion HCl 300 mg 24 hr tablet, 300 mg PO QAM #30 t abs 01/22/24 extended release morphine 15 mg tablet,extended 15 mg PO Q12H PRN back pain 7 days 01/22/24 release #14 tabs escitalopram oxalate 20 mg tablet 20 mg PO DAILY #30 t abs 03/06/24 olanzapine 20 mg disintegrating 20 mg PO BID #7 tabs 1 05/29/23 tablet (Zyprexa Zydis) amlodipine 5 mg tablet 5 mg PO BID Blood Pressure # 60 tabs 04/02/24 lorazepam 2 mg tablet (Ativan) 2 mg buccal Q6H PRN prasanth sea and 04/02/24 vomiting #14 tabs olanzapine 10 mg disintegrating 10 mg PO Q8H PRN nause a and 04/02/24 tablet vomiting #14 tabs cyclobenzaprine 10 mg tablet 10 mg PO Q8H PRN muscle s pasm #20 06/03/24 tabs [id number] 3.5 1 drp ophthalmic (eye) Q8H #5 mL 09/27/24 mg/mL-10,000 unit/mL-0.1% eye drops (Maxitrol) Allergies Allergy/AdvReac Type Severity Reaction Status Date / Time adhesive tape Allergy ALGY-Rash Verified 09/27/24 10:35 haloperidol (From Haldol) Allergy ADR-Irritab Verified 09/27/24 10:35 le hydrocodone Allergy ADR-Nausea Verified 09/27/24 10:35 metoclopramide (From Reglan) Allergy ADR-Itching Verified 09/27/24 10:35 promethazine (From Phenergan) Allergy ADR-Vomitin Verified 09/27/24 10:35 g PFSH ED PFSH: Medical History Acute viral syndrome Opioid contract exists Encounter for long-term opiate analgesic use Chronic low back pain with sciatica Rosacea History of pulmonary embolism post op, had DVT Dyslipidemia borderline by report, not on treatment Hypertension Chronic narcotic use ~ 2yrs, for back pain Obesity BMI 39 Surgical History History of appendectomy History of cholecystectomy H/O laminectomy History of carpal tunnel release left History of D&C History of hysterectomy due to life threatening bleeding while on anticoagulation for PE/DVT History of laparoscopic adjustable gastric banding History of tonsillectomy History of back surgery (~2017) History of right knee surgery (~2008) patellar realignment Family History Father Cancer pancreatic cancer Other Diabetes Heart disease Hypertension Social History Smoking and tobacco/nicotine status: never used tobacco/nicotine Alcohol intake: never Substance/Drug Use: never Lives independently: Yes Household members: spouse Current occupational status: disabled Course Vital Signs: Vital signs: Vital Signs Temperature 98.1 F 10/03/24 19:45 Pulse Rate 68 10/03/24 19:45 Respiratory Rate 17 10/03/24 19:45 Blood Pressure 148/89 10/03/24 19:45 Pulse Oximetry 100 10/03/24 19:45 Oxygen Delivery Me thod Room Air 10/03/24 19:45 MDM - Back Pain/Injury Medical Decision Making Patient presenting with atraumatic right lower back pain, history of sciatica stating this feels similar. States that what ever she received last time here in the ED worked for her. No red flag symptoms reported, no red flag findings on exam. I suspect sciatica, she was treated with medications here will be discharged stable condition encouraged to call Ortho/spine on Saturday to get in and see them if she continues to have pain. This patient was originally seen by Mr. Rika PA-C.? I agree with his history, evaluation, and treatment. Discharge Plan Discharge Patient Disposition: Home Clinical Impression: Chronic low back pain with sciatica Qualifiers: Back pain laterality: bilateral Sciatica laterality: bilateral sciatica Qualified Code(s): M54.42 - Lumbago with sciatica, left side Condition: Stable Prescriptions: No Action escitalopram oxalate 20 mg tablet 20 mg PO DAILY Qty: 30 0RF morphine 15 mg tablet extended release 15 mg PO Q12H MDD 2 PRN (Reason: back pain) 7 Days Qty: 14 0RF bupropion HCl 300 mg tablet extended release 24 hr 300 mg PO QAM Qty: 30 5RF povidone-iodine [Betadine Swabsticks] 10 % swab 2 applic topical ONCE Qty: 1 0RF neomycin-polymyxin B-dexameth [Maxitrol] 3.5mg/mL-10,000 unit/mL-0.1 % drops,suspension 1 drp ophthalmic (eye) Q8H Qty: 5 0RF cyclobenzaprine 10 mg tablet 10 mg PO Q8H PRN (Reason: muscle spasm) Qty: 20 0RF morphine 15 mg tablet 15 mg PO .Q4-6H olanzapine [Zyprexa Zydis] 20 mg tablet,disintegrating 20 mg PO BID Qty: 7 0RF olanzapine 10 mg tablet,disintegrating 10 mg PO Q8H PRN (Reason: nausea and vomiting) Qty: 14 0RF lorazepam [Ativan] 2 mg tablet 2 mg buccal Q6H PRN (Reason: nausea and vomiting) Qty: 14 0RF amlodipine 5 mg tablet 5 mg PO BID Qty: 60 0RF Discharge Orders: Discharge ED (Routine); Ordered 10/03/24 Ordered By: Marlo Meléndez Patient Instructions: Back Pain (ED) Activity Restrictions/Additional Instructions: Continue with your home morphine. Range of motion exercises and weightbearing as tolerated. Topical IcyHot. Follow-up with regular doctor and return with any new or worsening. Print Language: Ecuadorean Coding Level of Care Code ED Line Up Machine Operator for Zabrina Burgess
== END 2024-10-03 22:02 | disposition home or self-care (01) ==
PROVIDERS: Emergency Provider Physician Assistant
DX: M54.42 Lumbago with sciatica, left side (principal); E78.5 Hyperlipidemia, unspecified; I10 Essential (primary) hypertension
CPT/HCPCS: 96374; 96375; 99284; J1100; J1171; J2360

== ENCOUNTER 2024-10-10 18:38 | Emergency (ER) | payer MEDICAID, SELFPAY ==
[2024-10-10 19:02] VITALS: PULSE 66; RESP 16; TEMP 36.6; O2SAT 100; BMI 34.7
== END 2024-10-10 20:57 | disposition left against medical advice (07) ==
PROVIDERS: Emergency Provider Family Medicine
DX: Z53.21 Procedure and treatment not carried out due to patient leaving prior to being seen by health care provider (principal)

== ENCOUNTER 2024-10-11 08:32 | Emergency (ER) | payer MEDICAID, SELFPAY ==
[2024-10-11 08:56] VITALS: BP 168/128; PULSE 63; RESP 18; TEMP 36.7; O2SAT 100; BMI 34.7
--- NOTE | 2024-10-11 09:20 | USR_ITS ---
PROCEDURE INFORMATION: Exam: US Duplex Left Lower Extremity Veins, Limited Exam date and time: 10/11/2024 9:52 AM Age: 44 years old Clinical indication: Pain; Leg, upper and leg, lower; Left; Additional info: Left leg pain TECHNIQUE: Imaging protocol: Real-time duplex ultrasound of the left extremity with 2-D marie scale, color Doppler flow and spectral waveform analysis including responses to compression and other maneuvers (when performed) with image documentation. Limited exam focused on the left lower extremity veins. Total images: 3 COMPARISON: US CV venous duplex [facility] [id number] 03/21/2022 9:21 PM FINDINGS: Left deep veins: Unremarkable. The common femoral, femoral, proximal profunda femoral and popliteal veins are patent without thrombus. Normal Doppler waveforms. Normal compressibility and/or augmentation response. Superficial veins: Greater saphenous vein at the saphenofemoral junction is patent without thrombus. Soft tissues: Unremarkable. US/CV venous duplex [facility] [id number] IMPRESSION: No evidence of deep vein thrombosis.
--- NOTE | 2024-10-11 09:28 | ED_ITS ---
HPI - Extremity Problem General: Chief complaint: Extremity Problem,Nontraumatic Stated complaint: lft leg pain Time Seen by Provider: 10/11/24 09:11 Source: patient Mode of arrival: ambulatory Limitations: no limitations History of Present Illness: 44-year-old female who states that she h as history of chronic back pain she had had back surgery 9 months ago states that over this last week she been having some pain in her left hip that goes down her left leg states has had some slight swelling to her left leg has had a history of blood clots as well denies any injuries denies any bowel or bladder incontinence. Associated symptoms: Deny chest pain, fever(s) or rash Related Data Home Medications ?Medication ?Instructions ?Recorded ?Confirmed morphine 15 mg immediate release 15 mg PO .Q4-6H pain 03/27/24 09/27/24 tablet Previous Rx's ?Medication ?Instructions ?Recorded bupropion HCl 300 mg 24 hr tablet, 300 mg PO QAM #30 t abs 01/22/24 extended release morphine 15 mg tablet,extended 15 mg PO Q12H PRN back pain 7 days 01/22/24 release #14 tabs escitalopram oxalate 20 mg tablet 20 mg PO DAILY #30 t abs 03/06/24 olanzapine 20 mg disintegrating 20 mg PO BID #7 tabs 1 05/29/23 tablet (Zyprexa Zydis) amlodipine 5 mg tablet 5 mg PO BID Blood Pressure # 60 tabs 04/02/24 lorazepam 2 mg tablet (Ativan) 2 mg buccal Q6H PRN prasanth sea and 04/02/24 vomiting #14 tabs olanzapine 10 mg disintegrating 10 mg PO Q8H PRN nause a and 04/02/24 tablet vomiting #14 tabs cyclobenzaprine 10 mg tablet 10 mg PO Q8H PRN muscle s pasm #20 06/03/24 tabs detrpalv-ubfdpaxlo-peitjpjy 3.5 1 drp ophthalmic (eye) Q8H #5 mL 09/27/24 mg/mL-10,000 unit/mL-0.1% eye drops (Maxitrol) Allergies Allergy/AdvReac Type Severity Reaction Status Date / Time adhesive tape Allergy ALGY-Rash Verified 09/27/24 10:35 haloperidol (From Haldol) Allergy ADR-Irritab Verified 09/27/24 10:35 le hydrocodone Allergy ADR-Nausea Verified 09/27/24 10:35 metoclopramide (From Reglan) Allergy ADR-Itching Verified 09/27/24 10:35 promethazine (From Phenergan) Allergy ADR-Vomitin Verified 09/27/24 10:35 g Review of Systems Const: Denies: fever(s), chills, body aches or change in appetite ENMT: Denies: throat pain or dental pain Card: Denies: chest pain Resp: Denies: dyspnea GI: Denies: abdominal pain, nausea, vomiting or diarrhea Musc: Reports: extremity pain and extremity swelling; Denies: neck pain or back pain Skin/Breast: Denies: rash Neuro: Denies: headache(s) PFSH ED PFSH: Medical History Acute viral syndrome Opioid contract exists Encounter for long-term opiate analgesic use Chronic low back pain with sciatica Rosacea History of pulmonary embolism post op, had DVT Dyslipidemia borderline by report, not on treatment Hypertension Chronic narcotic use ~ 2yrs, for back pain Obesity BMI 39 Surgical History History of appendectomy History of cholecystectomy H/O laminectomy History of carpal tunnel release left History of D&C History of hysterectomy due to life threatening bleeding while on anticoagulation for PE/DVT History of laparoscopic adjustable gastric banding History of tonsillectomy History of back surgery (~2017) History of right knee surgery (~2008) patellar realignment Family History Father Cancer pancreatic cancer Other Diabetes Heart disease Hypertension Social History Smoking and tobacco/nicotine status: never used tobacco/nicotine Alcohol intake: never Substance/Drug Use: never Lives independently: Yes Household members: spouse Current occupational status: disabled Female Reproductive History: Para: 3 Spontaneous abortions: No Physical Exam Const: COMMON NORMALS: no acute distress, patient oriented x3 and healthy appearing HENMT: COMMON NORMALS: normocephalic and atraumatic HEAD & SCALP: normocephalic and atraumatic Eye: COMMON NORMALS: conjunctivae normal CONJUNCTIVA: Yes conjunctivae normal Neck/C-Spine: COMMON NORMALS: full ROM and supple Chest: COMMONS NORMALS: normal inspection of the chest Resp: COMMON NORMALS: normal respiratory effort Cardio: COMMON NORMALS: regular rate RATE: regular rate Back/Pelvis: OTHER: No midline tenderness some slight tenderness left lower hip Extremity: COMMON NORMALS: normal to inspection and full ROM NARRATIVE EXTREMITY EXAM: Distal pulse sensation intact no redness slight swelling to left leg Neuro: COMMON NORMALS: patient oriented x3, moves all extremities and no focal motor deficits Psych: COMMON NORMALS: mental status grossly normal, Normal thought process present and cooperative THOUGHT PROCESS: Normal thought process present Skin: COMMON NORMALS: no rashes or lesions noted and no wounds GENERAL SKIN EXAM: no rashes or lesions noted Course Vital Signs: Vital signs: Vital Signs Temperature 98.0 F 10/11/24 08:56 Pulse Rate 63 10/11/24 08:56 Respiratory Rate 18 10/11/24 09:32 Blood Pressure 168/128 10/11/24 08:56 Pulse Oximetry 95 10/11/24 09:32 Oxygen Delivery Me thod Room Air 10/11/24 08:56 MDM - Extremity (Nontraumatic) Medical Decision Making Patient presents here with left leg pain ultrasound showed no DVT. Patient's well-appearing here no signs of cord compression we will get her follow-up with her spine surgeon Dr. Cruz return if worsening. Medical Records I reviewed the patient's medical records. All radiology interpretation(s) finalized by discharge Discharge Plan Discharge Patient Disposition: Home Clinical Impression: Leg pain, left Condition: Stable Prescriptions: No Action escitalopram oxalate 20 mg tablet 20 mg PO DAILY Qty: 30 0RF morphine 15 mg tablet extended release 15 mg PO Q12H MDD 2 PRN (Reason: back pain) 7 Days Qty: 14 0RF bupropion HCl 300 mg tablet extended release 24 hr 300 mg PO QAM Qty: 30 5RF povidone-iodine [Betadine Swabsticks] 10 % swab 2 applic topical ONCE Qty: 1 0RF neomycin-polymyxin B-dexameth [Maxitrol] 3.5mg/mL-10,000 unit/mL-0.1 % drops,suspension 1 drp ophthalmic (eye) Q8H Qty: 5 0RF cyclobenzaprine 10 mg tablet 10 mg PO Q8H PRN (Reason: muscle spasm) Qty: 20 0RF morphine 15 mg tablet 15 mg PO .Q4-6H olanzapine [Zyprexa Zydis] 20 mg tablet,disintegrating 20 mg PO BID Qty: 7 0RF olanzapine 10 mg tablet,disintegrating 10 mg PO Q8H PRN (Reason: nausea and vomiting) Qty: 14 0RF lorazepam [Ativan] 2 mg tablet 2 mg buccal Q6H PRN (Reason: nausea and vomiting) Qty: 14 0RF amlodipine 5 mg tablet 5 mg PO BID Qty: 60 0RF Discharge Orders: Discharge ED (Routine); Ordered 10/11/24 Ordered By: Malinda Williamson Referrals: Chevy Cruz DO [Physician, Orthopedics] - 4-7 days Discharge Diet: Advance as tolerated Discharge Activity: Resume usual activity Patient Instructions: Leg Pain (ED) Print Language: Portuguese Coding Level of Care Code ED Statement Distribution Clerk for Zabrina Burgess
[2024-10-11 09:32] VITALS: RESP 18; O2SAT 95
[2024-10-11] MEDS: morphine 4 mg/mL SDV 1 mL IM (09:32)
[2024-10-11] MEDS: dexamethasone 10 mg/mL INJ IM (09:33)
[2024-10-11 10:15] VITALS: BP 163/99; PULSE 59; O2SAT 100
--- NOTE | 2024-10-14 09:25 | DCPLANNER ---
Message sent to Ortho clinic for follow up-Patient presents here with left leg pain ultrasound showed no DVT. Patient's well-appearing here no signs of cord compression we will get her follow-up with her spine surgeon Dr. Cruz return if worsening.
== END 2024-10-11 10:15 | disposition home or self-care (01) ==
PROVIDERS: Emergency Provider Emergency Medicine
DX: M79.605 Pain in left leg (principal); M54.9 Dorsalgia, unspecified; G89.29 Other chronic pain
CPT/HCPCS: 93971; 96372; 99284; J1100; J2270

== ENCOUNTER → 2024-10-15 14:42 | Outpatient (BNVA) | payer MEDICAID, SELFPAY | PROVIDERS: Visit Provider Orthopaedic Surgery | DX: M54.9 Dorsalgia, unspecified (principal); M25.552 Pain in left hip | CPT/HCPCS: 72100; 73502; 99213 ==

== ENCOUNTER 2024-12-01 08:13 | Emergency (ER) | payer MEDICAID, SELFPAY ==
--- OUTSIDE RECORDS SUMMARY | 2018-03-09 19:00 | XMS_ITS | Continuity of Care Document ---
Author Organization [facility] Address [address] [place] [phone] Phone Care Team Providers Care Manager Terminal Name Role Phone Joseluis Anderson MD Unavailable Unavailable Procedures Procedure Date EEG, AWAKE AND ASLEEP EMERGENCY DEPT VISIT Advance Directives Directive Yes / No Effective Date File Name No Information Encounters Encounter Description Practice Location Reason(s) For Visit Diagnoses Date Provider Providers Copied on Encounter EMERGENCY DEPT VISIT Joseluis Anderson M.D[facility] P.A., [address] [place] [address], [id number], tel:[phone] [facility] ER No Information Monica Huggins. [address] [place] [address], [id number], . tel:[phone] Referring Provider: Tom Page, [address] DO NOT SEND RECORDS [place], [address]. tel:[phone] Family History Family Member Type Diagnosis Age At Onset No Information Payers Payer name Insurance type Covered republican ID Authoriza tion(s) [facility] Plan-Medicaid [id number] Social History Type Description Quantity Date Captured [...]
--- OUTSIDE RECORDS SUMMARY | 2024-11-03 08:00 | XMS_ITS ---
Author Organization [facility] Address [address] [place] [address] Care Team Providers Care Associate Publisher Name Role Phone Chevy Cruz DO Primary Care Provider Loly Holder Unavailable [phone] REASON FOR VISIT 1 month f/u MD Medications Medication SIG (Take, Route, Frequency, Duration) Notes Start Date End Date Status Morphine Sulfate ER 30 MG 1 tablet Orally daily for 30 days fill 10/11/24 may fill 1-2 days early if closed 10/06/2024 11/10/2024 Active Morphine Sulfate 15 MG 1 tablet as needed Orally every 4 -6 hrs for 30 days As needed Not to exceed 3 per day fill 10/11/24 may fill 1-2 days early if closed 10/06/2024 11/05/2024 Active Methocarbamol Active Ondansetron HCl Acti ve Methadone HCl 5 MG 1 tablet Orally twice a day for 30 days Fill date 10/15/24- Substitute for MS IR 15 10/14/2024 11/14/2024 Active Linzess Active Lisinopril-hydroCHLOR Othiazide Active buPROPion HCl Active Eliquis Active Escitalopram Oxalate Active Encounters Encounter Location Date Provider Diagnosis [facility] [address] [place] [phone] 11/03/2024 Loly kirk Chronic pain syndrome G89.4 ; Spondylosis of lumbosacral region without myelopathy or radiculopathy M47.817 ; Disorder of sacrum M53.3 ; Pain in right hip M25.551 ; Lumbar post-laminectomy syndrome M96.1 ; Other low back pain M54.59 and 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 Z79.891 Assessments Encounter Date Diagnosis (ICD Code) Assessment Notes Treatment Notes Treatment Clinical Notes Section Notes 11/03/2024 Chronic pain syndrome (ICD-10 - G89.4) 11/03/2024 Spondylosis of lumbosacral region without myelopathy or radiculopathy (ICD-10 - M47.817) 11/03/2024 Disorder of sacrum (ICD-10 - M53.3) 11/03/2024 Pain in right hip (ICD-10 - M25.551) 11/03/2024 Lumbar post-laminectomy syndrome (ICD-10 - M96.1) 11/03/2024 Other low back pain (ICD-10 - M54.59) 11/03/2024 USP (current) use of opiate analgesic (ICD-10 - Z79.891) Plan Of Treatment Next Appt Details Provider Name:Loly Cowan, 12/02/2024 03:40:00 PM, [address] [place] [address], [phone], Progress Notes * YVROSE DoloresDOB:1980 (44 yo F)Acc No.[id number]:11/03/2024 Progress Notes Patient: Dolores JAMES Provider: Alpa Fried MD :1980 A ge:44 Y S ex:Female Date:11/03/2024 Address:[address] [place], [place] [id number] Pcp:Chevy Cruz DO Subjective: * Chief Complaints: * 1 . 1 month f/u . * HPI: P ain Details: Pain Location : . Quality : . Severity of pain at its worst : . Severity of pain at its best : . Severity of pain on medication : . Severity of average pain : . When did you last take your pain medicine : . M edication Details: Do you have a lock box or safe place for medication away from minors and/or others? Y es. Do you have any leftover pain medication building up at your house? N o. Do you understand that pain medication can be addicting and can cause overdose? Y es. Do you feel you can REDUCE the amount of medication you take today? N o. O pioid Assessment Tools: Pill Count : . Last Urine Drug Screen : . [place] Prescription Monitoring Program : Rosita ramirez Note: Patient presents today for reevaluation. - - - - - - - - - - - - - - - - - - - - - - - - - - - - - - - - - - - - - - - - - Consent for chronic opioid therapy/clinic policies: 12/07/23 ALYSE: 38% 06/23/24 SOAPP-R: 24 Physical Therapy: yes, dates: 2020 Bowel/bladder incontinence - Denies - - - - - - - - - - - - - - - - - - - - - - - - - - - - - - - - - - - - - - - - -. 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: HX of SI fusion s/p infection with OZH Pertinent Imagin10/01/23 XR L spine A posterior Lumbar Fusion L3-S1 is again noted. There are additional screws fusing the SI joints, one on the right and 2 on the left. There is a laminectomy at L4. There is a disc spacer at L4/L5. There are upper abdominal surgical clips. 09/10/2024 The patient presents today for a delayed follow-up. It sounds like she has had a hard few months with the loss of her and her son dealing with stage V kidney failure. She feels her medication is working well for her when she has it. She has been out for about a week due to having to miss an appointment. She is currently prescribed immediate release morphine 15 mg 3/day and extended release morphine 30 mg daily. Her last UDS was negative for medication. She is out of her medication today which is consistent with fill date. UDS was collected today and will be sent to lab for reference. We will review results with patient at next visit. PDMP was reviewed and found to be compliant with care. Original HPI: She presents to my clinic today to establish care. She is being referring to me by her orthopedic surgeon, Dr. Cruz, for low back and radicular pain going down the anterior, lateral, and posterior aspect of her right leg. She reports this pain started roughly about 10 years ago. She previously was seen by an interventional pain physician, Dr. Goel, in [place] and was deemed not an interventional candidate at that time and had progressed to having her pain treated with Morphine extended release and immediate release which allowed her to function. 4 years ago, she moved to [facility] [place] and was seen by Dr. Cruz for her low back pain. She had an L4 to S1 fusion with rods placed in July 2022. She continued to have back pain at that time and her radicular pain had improved. After getting a diagnostic SI joint injection, she underwent an SI joint fusion with Dr. Cruz in August 2023, after which she immediately started developing right lower extremity severe pain and weakness. She underwent a revision with screw removal by Dr. Cruz and since that time, her leg pain and weakness had slowly started improving as she's trying to do her home exercise program. She has a lot going on in her life. Her son recently got diagnosed with CKD Stage 4, and her in the last month was diagnosed with esophageal cancer. They had been traveling to [place], [place] for her 's chemotherapy and radiation as well as his multiple procedures. Dr. Cruz had also prescribed her Valium with no improvement of her symptoms. She denies any bowel or bladder incontinence and feels like she's been able to progress from a wheelchair to a walker to just using her hands to hold onto things as she moves around. Pain is an 8 out of 10 described as aching, stabbing, burning, pins, spreading, sharp, shooting, deep pain. Laying down helps alleviate her symptoms. Walking and standing aggravates her symptoms as well. * Medical History: * Medications: T aking buPROPion HCl , Taking Eliquis , Taking Escitalopram Oxalate , Taking Linzess , Taking Lisinopril-hydroCHLOROthiazide , Taking Methocarbamol , Taking Ondansetron HCl , Taking Morphine Sulfate ER 30 MG Tablet Extended Release 1 tablet Orally daily , stop date 11/10/2024, Notes to Pharmacist: fill 10/11/24 may fill 1-2 days early if closed, Taking Morphine Sulfate 15 MG Tablet 1 tablet as needed Orally every 4 - 6 hrs As needed Not to exceed 3 per day, stop date 11/05/2024, Notes to Pharmacist: fill 10/11/24 may fill 1-2 days early if closed, Taking Methadone HCl 5 MG Tablet 1 tablet Orally twice a day , stop date 11/14/2024, Notes to Pharmacist: Fill date 10/15/24- Substitute for MS IR 15 Objective: * Vitals: Assessment: * Assessment: 1. C hronic pain syndrome - G89.4 (Primary) 2 . S pondylosis of lumbosacral region without myelopathy or radiculopathy - M47.817 3 . D isorder of sacrum - M53.3 4 . P ain in right hip - M25.551 5 . L umbar post-laminectomy syndrome - M96.1 6 . 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 - Z79.891 Plan: * Treatment: Forms: * Billing Information: * Visit Code: * Procedure Codes: Care Plan Details* * Electronic signature of Leonor Fried MD on 12/01/2024 at 08:19 AM CDT Sign off status: Pending * Provider: Alpa Fried MD Date: 0 11/03/2024 Generated for Radha toledo/Sally/Oscaritting on: 0 12/01/2024 08:19 AM CDT History and Physical Notes * HPI (History of Present Illness) Category Sub-Category Detail Notes Category Not es Provider Note 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: HX of SI fusion s/p infection with OZH Pertinent Imagin10/01/23 XR L spine A posterior Lumbar Fusion L3-S1 is again noted. There are additional screws fusing the SI joints, one on the right and 2 on the left. There is a laminectomy at L4. There is a disc spacer at L4/L5. There are upper abdominal surgical clips. 09/10/2024 The patient presents today for a delayed follow-up. It sounds like she has had a hard few months with the loss of her and her son dealing with stage V kidney failure. She feels her medication is working well for her when she has it. She has been out for about a week due to having to miss an appointment. She is currently prescribed immediate release morphine 15 mg 3/day and extended release morphine 30 mg daily. Her last UDS was negative for medication. She is out of her medication today which is consistent with fill date. UDS was collected today and will be sent to lab for reference. We will review results with patient at next visit. PDMP was reviewed and found to be compliant with care. Original HPI: She presents to my clinic today to establish care. She is being referring to me by her orthopedic surgeon, Dr. Cruz, for low back and radicular pain going down the anterior, lateral, and posterior aspect of her right leg. She reports this pain started roughly about 10 years ago. She previously was seen by an interventional pain physician, Dr. Goel, in [place] and was deemed not an interventional candidate at that time and had progressed to having her pain treated with Morphine extended release and immediate release which allowed her to function. 4 years ago, she moved to [facility] [place] and was seen by Dr. Cruz for her low back pain. She had an L4 to S1 fusion with rods placed in July 2022. She continued to have back pain at that time and her radicular pain had improved. After getting a diagnostic SI joint injection, she underwent an SI joint fusion with Dr. Cruz in August 2023, after which she immediately started developing right lower extremity severe pain and weakness. She underwent a revision with screw removal by Dr. Cruz and since that time, her leg pain and weakness had slowly started improving as she's trying to do her home exercise program. She has a lot going on in her life. Her son recently got diagnosed with CKD Stage 4, and her in the last month was diagnosed with esophageal cancer. They had been traveling to [place], [place] for her 's chemotherapy and radiation as well as his multiple procedures. Dr. Cruz had also prescribed her Valium with no improvement of her symptoms. She denies any bowel or bladder incontinence and feels like she's been able to progress from a wheelchair to a walker to just using her hands to hold onto things as she moves around. Pain is an 8 out of 10 described as aching, stabbing, burning, pins, spreading, sharp, shooting, deep pain. Laying down helps alleviate her symptoms. Walking and standing aggravates her symptoms as well. Pain Details Pain Location : Quality : Severity of pain at its worst : Severity of pain at its best : Severity of average pain : Severity of pain on medication : When did you last take your pain medicin e : Medication Details Do you have a lock b ox or safe place for medication away from minors and/or others? Yes Do you have any leftover pain medication building up at your house? No Do you understand that pain medication c an be addicting and can cause overdose? Yes Do you feel you can REDUCE the amount of medication you take today? No Opioid Assessment Tools Pill Count : Last Urine Drug Screen : [place] Prescription Monitoring Program :
--- OUTSIDE RECORDS SUMMARY | 2024-12-01 08:20 | XMS_ITS | Patient Health Record ---
Author Organization [facility] Address [address] [place] [address] Care Team Providers Care Failure Analysis Engineer Name Role Phone Chevy Cruz DO Primary Care Provider UnavailLoly Hansen Unavailable Migration, Provider Unavailable Unavailable Bernardino Denise Unavailable [phone] Lively, Tommy Unavailable [phone] Allergies Allergen (clinical drug ingredient) Drug/Non Drug Allergy documented on EMR Reaction Allergy Type Onset Date Status promethazine Phenergan Unknown Drug Allergy Acti ve metoclopramide Reglan Unknown Drug Allergy Ac tive Adhesive Unknown Allergy Active hydrocodone Hydrocodone Unknown Drug Allergy Act emmanuel Results Component Value Reference Range Notes Urine Drug Screen (cup read) - [id number] Reviewed date:05/07/2024 10:33:51 AM Interpretation:Negative Performing Lab: Notes/Report: Negative AMP - JOHNNY - BUP + BZO - MDMA - OPI - PCP - OXY - MTD - MAMP - Urine Drug Screen (cup read) - [id number] Reviewed date:10/06/2024 08:31:14 AM Interpretation:Positive Performing Lab: Notes/Report: Positive BZO + OPI + Urine Confirmation Panel (in strument) - [id number] Reviewed date:10/12/2024 02:46:29 PM Interpretation: Performing Lab: Notes/Report: 6-Acetylmorphine 0 <6 ng/mL This test w as developed and its performance characteristics determined by [facility]. It has not been cleared or approved by the U.S. Food and Drug Administration. 7-Aminoclonazepam 0 <60 ng/mL This test was developed and its performance characteristics determined by [facility]. It has not been cleared or approved by the U.S. Food and Drug Administration. Alprazolam 0 <60 ng/mL This test was d eveloped and its performance characteristics determined by [facility]. It has not been cleared or approved by the U.S. Food and Drug Administration. Amphetamine 0 <75 ng/mL This test was d eveloped and its performance characteristics determined by [facility]. It has not been cleared or approved by the U.S. Food and Drug Administration. aOH-Alprazolam 0 <60 ng/mL This test was developed and its performance characteristics determined by [facility]. It has not been cleared or approved by the U.S. Food and Drug Administration. Buprenorphine 0.0 <7.5 ng/mL This test was developed and its performance characteristics determined by [facility]. It has not been cleared or approved by the U.S. Food and Drug Administration. Norbuprenorphine 0.0 <37.5 ng/mL This test w as developed and its performance characteristics determined by [facility]. It has not been cleared or approved by the U.S. Food and Drug Administration. Carisoprodol 0 <75 ng/mL This test was d eveloped and its performance characteristics determined by [facility]. It has not been cleared or approved by the U.S. Food and Drug Administration. Codeine 0 <75 ng/mL This test was d eveloped and its performance characteristics determined by [facility]. It has not been cleared or approved by the U.S. Food and Drug Administration. EDDP 0 <75 ng/mL This test was d eveloped and its performance characteristics determined by [facility]. It has not been cleared or approved by the U.S. Food and Drug Administration. Fentanyl 0 <6 ng/mL This test was d eveloped and its performance characteristics determined by [facility]. It has not been cleared or approved by the U.S. Food and Drug Administration. Hydrocodone 0 <75 ng/mL This test was d eveloped and its performance characteristics determined by [facility]. It has not been cleared or approved by the U.S. Food and Drug Administration. Hydromorphone 155 <75 ng/mL This test was developed and its performance characteristics determined by [facility]. It has not been cleared or approved by the U.S. Food and Drug Administration. Lorazepam 0 <60 ng/mL This test was d eveloped and its performance characteristics determined by [facility]. It has not been cleared or approved by the U.S. Food and Drug Administration. MDMA 0 <75 ng/mL This test was d eveloped and its performance characteristics determined by [facility]. It has not been cleared or approved by the U.S. Food and Drug Administration. Meperidine 0.0 <37.5 ng/mL This test was d eveloped and its performance characteristics determined by [facility]. It has not been cleared or approved by the U.S. Food and Drug Administration. Meprobamate 0 <75 ng/mL This test was d eveloped and its performance characteristics determined by [facility]. It has not been cleared or approved by the U.S. Food and Drug Administration. Methamphetamine 0 <75 ng/mL This test wa s developed and its performance characteristics determined by [facility]. It has not been cleared or approved by the U.S. Food and Drug Administration. Methadone 3 <75 ng/mL This test was d eveloped and its performance characteristics determined by [facility]. It has not been cleared or approved by the U.S. Food and Drug Administration. Morphine 3636 <75 ng/mL This test was d eveloped and its performance characteristics determined by [facility]. It has not been cleared or approved by the U.S. Food and Drug Administration. Nordiazepam 0 <60 ng/mL This test was d eveloped and its performance characteristics determined by [facility]. It has not been cleared or approved by the U.S. Food and Drug Administration. Norfentanyl 0 <6 ng/mL This test was d eveloped and its performance characteristics determined by [facility]. It has not been cleared or approved by the U.S. Food and Drug Administration. Normeperidine 0.0 <37.5 ng/mL This test was developed and its performance characteristics determined by [facility]. It has not been cleared or approved by the U.S. Food and Drug Administration. O-desmethyltramadol 0 <75 ng/mL This nita t was developed and its performance characteristics determined by [facility]. It has not been cleared or approved by the U.S. Food and Drug Administration. Oxazepam 0 <60 ng/mL This test was d eveloped and its performance characteristics determined by [facility]. It has not been cleared or approved by the U.S. Food and Drug Administration. Oxycodone 0.0 <37.5 ng/mL This test was d eveloped and its performance characteristics determined by [facility]. It has not been cleared or approved by the U.S. Food and Drug Administration. Oxymorphone 4 <75 ng/mL This test was d eveloped and its performance characteristics determined by [facility]. It has not been cleared or approved by the U.S. Food and Drug Administration. Phencyclidine 0.0 <7.5 ng/mL This test was developed and its performance characteristics determined by [facility]. It has not been cleared or approved by the U.S. Food and Drug Administration. Tapentadol 3.1 <37.5 ng/mL This test was d eveloped and its performance characteristics determined by [facility]. It has not been cleared or approved by the U.S. Food and Drug Administration. Temazepam 5 <60 ng/mL This test was d eveloped and its performance characteristics determined by [facility]. It has not been cleared or approved by the U.S. Food and Drug Administration. Tramadol 0 <75 ng/mL This test was d eveloped and its performance characteristics determined by [facility]. It has not been cleared or approved by the U.S. Food and Drug Administration. Norhydrocodone 0 <75 ng/mL This test was developed and its performance characteristics determined by [facility]. It has not been cleared or approved by the U.S. Food and Drug Administration. Noroxycodone 0 <38 ng/mL This test was d eveloped and its performance characteristics determined by [facility]. It has not been cleared or approved by the U.S. Food and Drug Administration. Pregabalin 0 <225 ng/mL This test was d eveloped and its performance characteristics determined by [facility]. It has not been cleared or approved by the U.S. Food and Drug Administration. Gabapentin 0 <225 ng/mL This test was d eveloped and its performance characteristics determined by [facility]. It has not been cleared or approved by the U.S. Food and Drug Administration. Benzoylecgonine 0.0 <37.5 ng/mL This test wa s developed and its performance characteristics determined by [facility]. It has not been cleared or approved by the U.S. Food and Drug Administration. 4-Hydroxy Xylazine 0 <25 ng/mL This test was developed and its performance characteristics determined by [facility]. It has not been cleared or approved by the U.S. Food and Drug Administration. Tox Results Reviewed date:10/12/2024 02:49:40 PM Interpretation: Performing Lab: Notes/Report: Tox Results Reviewed date:09/15/2024 04:17:15 PM Interpretation: Performing Lab: Notes/Report: zzzUrine Drug Screen (confir mation by instrument) - [id number] Reviewed date:06/30/2024 03:35:32 PM Interpretation: Performing Lab: Notes/Report: zzzUrine Drug Screen (confir mation by instrument) - [id number] Reviewed date:05/12/2024 02:29:30 PM Interpretation: Performing Lab: Notes/Report: Urine Confirmation Panel (in strument) - [id number] Reviewed date:09/15/2024 04:17:15 PM Interpretation: Performing Lab: Notes/Report: 6-Acetylmorphine 0 <6 ng/mL This test w as developed and its performance characteristics determined by [facility]. It has not been cleared or approved by the U.S. Food and Drug Administration. 7-Aminoclonazepam 0 <60 ng/mL This test was developed and its performance characteristics determined by [facility]. It has not been cleared or approved by the U.S. Food and Drug Administration. Alprazolam 0 <60 ng/mL This test was d eveloped and its performance characteristics determined by [facility]. It has not been cleared or approved by the U.S. Food and Drug Administration. Amphetamine 0 <75 ng/mL This test was d eveloped and its performance characteristics determined by [facility]. It has not been cleared or approved by the U.S. Food and Drug Administration. aOH-Alprazolam 0 <60 ng/mL This test was developed and its performance characteristics determined by [facility]. It has not been cleared or approved by the U.S. Food and Drug Administration. Buprenorphine 0.0 <7.5 ng/mL This test was developed and its performance characteristics determined by [facility]. It has not been cleared or approved by the U.S. Food and Drug Administration. Norbuprenorphine 0.0 <37.5 ng/mL This test w as developed and its performance characteristics determined by [facility]. It has not been cleared or approved by the U.S. Food and Drug Administration. Carisoprodol 0 <75 ng/mL This test was d eveloped and its performance characteristics determined by [facility]. It has not been cleared or approved by the U.S. Food and Drug Administration. Codeine 0 <75 ng/mL This test was d eveloped and its performance characteristics determined by [facility]. It has not been cleared or approved by the U.S. Food and Drug Administration. EDDP 0 <75 ng/mL This test was d eveloped and its performance characteristics determined by [facility]. It has not been cleared or approved by the U.S. Food and Drug Administration. Fentanyl 0 <6 ng/mL This test was d eveloped and its performance characteristics determined by [facility]. It has not been cleared or approved by the U.S. Food and Drug Administration. Hydrocodone 0 <75 ng/mL This test was d eveloped and its performance characteristics determined by [facility]. It has not been cleared or approved by the U.S. Food and Drug Administration. Hydromorphone 38 <75 ng/mL This test was developed and its performance characteristics determined by [facility]. It has not been cleared or approved by the U.S. Food and Drug Administration. Lorazepam 0 <60 ng/mL This test was d eveloped and its performance characteristics determined by [facility]. It has not been cleared or approved by the U.S. Food and Drug Administration. MDMA 0 <75 ng/mL This test was d eveloped and its performance characteristics determined by [facility]. It has not been cleared or approved by the U.S. Food and Drug Administration. Meperidine 0.0 <37.5 ng/mL This test was d eveloped and its performance characteristics determined by [facility]. It has not been cleared or approved by the U.S. Food and Drug Administration. Meprobamate 0 <75 ng/mL This test was d eveloped and its performance characteristics determined by [facility]. It has not been cleared or approved by the U.S. Food and Drug Administration. Methamphetamine 0 <75 ng/mL This test wa s developed and its performance characteristics determined by [facility]. It has not been cleared or approved by the U.S. Food and Drug Administration. Methadone 0 <75 ng/mL This test was d eveloped and its performance characteristics determined by [facility]. It has not been cleared or approved by the U.S. Food and Drug Administration. Morphine 0 <75 ng/mL This test was d eveloped and its performance characteristics determined by [facility]. It has not been cleared or approved by the U.S. Food and Drug Administration. Nordiazepam 4 <60 ng/mL This test was d eveloped and its performance characteristics determined by [facility]. It has not been cleared or approved by the U.S. Food and Drug Administration. Norfentanyl 0 <6 ng/mL This test was d eveloped and its performance characteristics determined by [facility]. It has not been cleared or approved by the U.S. Food and Drug Administration. Normeperidine 0.0 <37.5 ng/mL This test was developed and its performance characteristics determined by [facility]. It has not been cleared or approved by the U.S. Food and Drug Administration. O-desmethyltramadol 0 <75 ng/mL This nita t was developed and its performance characteristics determined by [facility]. It has not been cleared or approved by the U.S. Food and Drug Administration. Oxazepam 106 <60 ng/mL This test was d eveloped and its performance characteristics determined by [facility]. It has not been cleared or approved by the U.S. Food and Drug Administration. Oxycodone 0.0 <37.5 ng/mL This test was d eveloped and its performance characteristics determined by [facility]. It has not been cleared or approved by the U.S. Food and Drug Administration. Oxymorphone 0 <75 ng/mL This test was d eveloped and its performance characteristics determined by [facility]. It has not been cleared or approved by the U.S. Food and Drug Administration. Phencyclidine 0.0 <7.5 ng/mL This test was developed and its performance characteristics determined by [facility]. It has not been cleared or approved by the U.S. Food and Drug Administration. Tapentadol 0.0 <37.5 ng/mL This test was d eveloped and its performance characteristics determined by [facility]. It has not been cleared or approved by the U.S. Food and Drug Administration. Temazepam 85 <60 ng/mL This test was d eveloped and its performance characteristics determined by [facility]. It has not been cleared or approved by the U.S. Food and Drug Administration. Tramadol 0 <75 ng/mL This test was d eveloped and its performance characteristics determined by [facility]. It has not been cleared or approved by the U.S. Food and Drug Administration. Norhydrocodone 0 <75 ng/mL This test was developed and its performance characteristics determined by [facility]. It has not been cleared or approved by the U.S. Food and Drug Administration. Noroxycodone 0 <38 ng/mL This test was d eveloped and its performance characteristics determined by [facility]. It has not been cleared or approved by the U.S. Food and Drug Administration. Pregabalin 0 <225 ng/mL This test was d eveloped and its performance characteristics determined by [facility]. It has not been cleared or approved by the U.S. Food and Drug Administration. Gabapentin 0 <225 ng/mL This test was d eveloped and its performance characteristics determined by [facility]. It has not been cleared or approved by the U.S. Food and Drug Administration. Benzoylecgonine 0.0 <37.5 ng/mL This test wa s developed and its performance characteristics determined by [facility]. It has not been cleared or approved by the U.S. Food and Drug Administration. 4-Hydroxy Xylazine 0 <25 ng/mL This test was developed and its performance characteristics determined by [facility]. It has not been cleared or approved by the U.S. Food and Drug Administration. Urine Drug Screen (cup read) - [id number] Reviewed date:09/10/2024 01:41:55 PM Interpretation: Performing Lab: Notes/Report: BZO + Reason For Referral No Information Medications Medication SIG (Take, Route, Frequency, Duration) Notes Start Date End Date Status Linzess Active Lisinopril-hydroCHLOROthiazi de Active Methocarbamol Active Ondansetron HCl Acti ve buPROPion HCl Active Eliquis Active Escitalopram Oxalate Active Social History Tobacco Use: Social History Observation Description Date Details (start date - stop date) Current Smoker NA - NA Tobacco Control (Standard) Question Answer Notes Tobacco use: Current smoker How often do you smoke cigarettes? Every day Problems Problem Type SNOMED Code ICD Code Onset Dates Problem Status W/U Status Risk Notes Problem Chronic pain syndrome (747460699) Chronic pain syndrome (G89.4) Active confirmed Problem Lumbosacral spondylosis without myelopathy (61143031) Spondylosis of lumbosacral region without myelopathy or radiculopathy (M47.817) Active confirmed Problem Lumbar post-laminectom y syndrome (405980006) Lumbar post-laminectomy syndrome (M96.1) Active confirmed Vital Signs Height-cm 165.1 cm 09/10/2024 Weight-kg 99.79 kg 05/05/2024 Height 65 in 09/10/2024 Weight 220 lbs 05/05/2024 BMI 36.61 kg/m2 05/05/2024 Encounters Encounter Location Date Provider Diagnosis [facility]ly [facility] [address] [place] [address] 01/03/2024 Tommy Carvajal [facility] [address] [facility] [place] [address] 01/30/2024 Loly Crenshaw e [facility]ly [facility] [place] [address] [place] [address] 03/03/2024 Loly Crenshaw e [facility]ly [facility] [place] [address] [place] [address] 05/05/2024 Loly Crenshaw e Chronic pain syndrome G89.4 ; Low back pain M54.50 ; Spondylosis of lumbosacral region without myelopathy or radiculopathy M47.817 ; Disorder of sacrum M53.3 ; Lumbar post-laminectomy syndrome M96.1 ; Pain in right hip M25.551 and Chronic use of opiate for therapeutic purpose Z79.891 [facility] [place] [address] [place] [address] 06/23/2024 Loly Ramires-Pric e Chronic pain syndrome G89.4 ; Spondylosis of lumbosacral region without myelopathy or radiculopathy M47.817 ; Disorder of sacrum M53.3 ; Lumbar post-laminectomy syndrome M96.1 ; Other low back pain M54.59 ; Pain in right hip M25.551 and 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 Z79.891 [facility] [address] [address] 09/10/2024 Denise Lebron Chronic pain syndrome G89.4 ; Spondylosis of lumbosacral region without myelopathy or radiculopathy M47.817 ; Disorder of sacrum M53.3 ; Pain in right hip M25.551 ; Lumbar post-laminectomy syndrome M96.1 ; Other low back pain M54.59 and 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 Z79.891 [facility] [address] [address] 10/06/2024 Loly Ramires-Pric e Chronic pain syndrome G89.4 ; Spondylosis of lumbosacral region without myelopathy or radiculopathy M47.817 ; Disorder of sacrum M53.3 ; Pain in right hip M25.551 ; Lumbar post-laminectomy syndrome M96.1 ; Other low back pain M54.59 and senior care (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) use of opiate analgesic Z79.891 [facility]rated[facility]Facility 0 0 03/21/2024 Provider Migration [facility]Facility 0 0 03/22/2024 Provider Migration [facility] [address] [address] 04/10/2024 Loly Ramires-Pric e [facility] [address] [address] 04/13/2024 Loly Ramires-Pric e [facility] [address] [address] 04/28/2024 Loly Ludauksyutivory-Pric e [facility] [address] [facility] [place] [address] 06/04/2024 Loly Wilsonsyutova-Pric e Chronic pain syndrome G89.4 [facility] [address] [facility] [place] [address] 06/19/2024 Loly Ludauksyutova-Pric e [facility] [place] [address] [place] [facility] [place] [address] 07/06/2024 Loly Lyuksyutova-Pric e [facility] [address] [facility] [place] [address] 08/27/2024 Loly Lyuksyutova-Pric e [facility] [place] [address] [facility] [place] [address] 09/10/2024 Loly Ludauksyutiovry-Pric e Lumbar post-laminectomy syndrome M96.1 [facility] [place] [address] [place] [facility] [place] [address] 09/11/2024 Denise Bernardino [facility] [place] [address] [facility] [place] [address] 10/12/2024 Loly Ludauksysuzanova-Pric e Spondylosis of lumbosacral region without myelopathy or radiculopathy M47.817 Assessments Encounter Date Diagnosis (ICD Code) Assessment Notes Treatment Notes Treatment Clinical Notes Section Notes 09/10/2024 Lumbar post-laminectomy syndrome (ICD-10 - M96.1) 09/10/2024 Chronic pain syndrome (ICD-10 - G89.4) I had a nice discussion with the patient today regarding her chronic pain complaints. She has had a difficult time due to the loss of her and dealing with her son having stage V kidney failure. She is also dealing with some depression and is planning to get in with some counseling soon as soon as she has another vehicle. She feels she is doing well on her current medication regimen when she has it. She has been out for about a week due to missing an appointment. I did have a long discussion with her today as I do not see that we have had a consistent drug screen in quite some time. I had a discussion with her regarding compliance and that we must be able to show compliance through pill counts and drug screens in order to continue her medication. She did voice understanding. She will continue her medication at present level and she will return to clinic in 1 month instead of 2 to monitor for treatment effectiveness as well as for increased monitoring for compliance. The patient continues with chronic pain requiring treatment to help restore function and improve quality of life. Risks of opioid therapy as well as interaction of opioids with alcohol, illicit drugs, muscle relaxers, and other sedative medications are reviewed briefly with patient again today. The patient has trialed all other reasonable treatment options and uses the medication to alleviate pain in order to remain active and rest with less pain. No clinically relevant medication side effects are noted. Last UDS and [place] COUNTER CUTTER reviewed today. Patient is advised that best long-term goals include increased activity, core strengthening, proper weight management, coping strategies, avoidance of painful triggers, and targeted interventional therapy. We will see the patient for routine follow up in accordance with all clinic policies. We did remind patient today of current guidelines to decrease opioid when possible. We will continue to stress nonopioid treatment. RECOMMEND URINE TESTING TODAY Urine drug screening will be performed today to monitor compliance with opioid therapy or to serve as a baseline screen for a patient who may be a candidate for opioid therapy in the future, pending UDS results. We will monitor with in-office testing (rapid testing) today and review the results prior to dispensing prescription. All positive results will be sent for quantitative analysis to ensure accuracy and quantify amounts. Any expected positive results that return negative will also be sent for quantitative analysis. Any questionable read or any medication we cannot test for in the office confidently will be sent for quantitative analysis, as well. Patient has been made aware of this policy and agrees to abide by our urine testing policy. Refill Morphine Sulfate Tablet, 15 MG, 1 tablet, Orally, every 6-8 hrs, As needed Not to exceed 3 per day, 30 days, 90 tablets, Start Date: 09/10/2024, Stop Date: 10/10/2024, Refills 0, Notes to Pharmacist: Fill on 09/10/24 Refill Morphine Sulfate ER Tablet Extended Release, 30 MG, 1 tablet, Orally, once a day, 30 days, 30 Tablet, Start Date: 09/10/2024, Stop Date: 10/10/2024, Refills 0, Notes to Pharmacist: Fill on 09/10/24 05/05/2024 Low back pain (ICD-10 - M54.50) 06/23/2024 Spondylosis of lumbosacral region without myelopathy or radiculopathy (ICD-10 - M47.817) 05/05/2024 Chronic pain syndrome (ICD-10 - G89.4) Ms. Carlson is a very pleasant patient with history and physical exam consistent of lumbar post-laminectomy syndrome, lumbosacral radiculopathy, and disorder of sacrum pain. I talked to her today regarding how grief worsens chronic pain and that as she continues to process her 's recent passing, her chronic pain will continue to improve. She denies any bowel or bladder incontinece. She reports now that she has progressed from being in a wheelchair to now using a walker. She is now able to hold onto less things as she walks around. The options for treatment were explained in detail, this included PT, medications, injections, lifestyle modifications and exercise. The patient presents to clinic for medication evaluation and management. The patient is stable on their current medication regimen and endorses adequate analgesia, increased ADLs, denies abuse and side effects. The COUNTER CUTTER was reviewed with no untoward events noted. UDS reviewed and is as expected. A bowel regimen was discussed with the patient. I will refill her MS ER 15 mg BID first fill 05/06/2024, will send 2 electronic Rx Refill MS IR 15 mg #90 first fill 05/05/2024, 2 refills Follow up in 2 months. 06/04/2024 Chronic pain syndrome (ICD-10 - G89.4) 06/23/2024 Chronic pain syndrome (ICD-10 - G89.4) Ms. Carlson is a very pleasant patient with history and physical exam consistent with lumbar post-laminectomy syndrome, lumbosacral radiculopathy, and disorder of sacrum mediated pain. She is still recovering from the grief of her 's recent passing secondary to cancer. She denies any bowel or bladder incontinence. She has been doing better now that she's able to walk around without the utilization of a walker. I've previously seen her in a wheelchair as well as a walker. The options for treatment were explained in detail, this included PT, medications, injections, lifestyle modifications and exercise. The patient presents to clinic for medication evaluation and management. The patient is stable on their current medication regimen and endorses adequate analgesia, increased ADLs, denies abuse and side effects. The COUNTER CUTTER was reviewed with no untoward events noted. UDS reviewed and is as expected. A bowel regimen was discussed with the patient. We had to adjust her medication and switch her to MS extended release 30 mg once daily as opposed to the 15 mg extended release twice a day due to significant medication shortages in the area. 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 Carlson presents today tearful. She feels like she's been scatterbrained. She does endorse that she doesn't utilize a pill box and feels like she may have taken an additional MS ER over her driving back between [place] and here. She understands that this is a violation of her pain contract. She's had a very difficult time over the last 12 months with the loss of her to cancer and now her son is going in and out of the hospital with stage 5 kidney failure. She is most likely going to be moving to [place] in the next 2-3 months. PDMP reviewed. Medication last filled 09/11/24. Last UDS confirmation was not consistent with prescribed medication on 09/10/24. We'll obtain a UDS confirmation today. She endorses taking her medications. I discussed with her that if this is once again negative that this is grounds for termination. I'll be seeing her back in one month and potentially we'll start weaning her at that point if she's unable to find a physician in [place]. 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.817) 06/23/2024 Lumbar post-laminectomy syndrome (ICD-10 - M96.1) 09/10/2024 Pain in right hip (ICD-10 - M25.551) 05/05/2024 Disorder of sacrum (ICD-10 - M53.3) 10/06/2024 Disorder of sacrum (ICD-10 - M53.3) 09/10/2024 Lumbar post-laminectomy syndrome (ICD-10 - M96.1) 10/06/2024 Pain in right hip (ICD-10 - M25.551) 06/23/2024 Other low back pain (ICD-10 - M54.59) 05/05/2024 Lumbar post-laminectomy syndrome (ICD-10 - M96.1) 05/05/2024 Pain in right hip (ICD-10 - M25.551) 06/23/2024 Pain in right hip (ICD-10 - M25.551) 10/06/2024 Lumbar post-laminectomy syndrome (ICD-10 - M96.1) 09/10/2024 Other low back pain (ICD-10 - M54.59) 10/06/2024 Other low back pain (ICD-10 - M54.59) 06/23/2024 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 We will monitor with in-office testing (rapid testing) today and review the results prior to dispensing prescription. All positive results will be sent for quantitative analysis to ensure accuracy and quantify amounts. Any expected positive results that return negative will also be sent for quantitative analysis. Any questionable read or any medication we cannot test for in the office confidently will be sent for quantitative analysis, as well. Patient has been made aware of this policy and agrees to abide by our urine testing policy. 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 We will monitor with in-office testing (rapid testing) today and review the results prior to dispensing prescription. All positive results will be sent for quantitative analysis to ensure accuracy and quantify amounts. Any expected positive results that return negative will also be sent for quantitative analysis. Any questionable read or any medication we cannot test for in the office confidently will be sent for quantitative analysis, as well. Patient has been made aware of this policy and agrees to abide by our urine testing policy. 05/05/2024 Other Debra Khalil am scribing for Dr. Lerma. Dr. Florentin Khalil, personally performed the services described in this documentation, as scribed by Debra Emery, and it is both accurate and complete. Total time spent caring for the patient today was greater than 25 minutes. This includes time spent before the visit reviewing the chart, time spent during the visit, and time spent after the visit on documentation 06/23/2024 Dbera Gustafson am scribing for Dr. Lerma. Dr. Florentin Khalil, personally performed the services described in this documentation, as scribed by Debra Emery, and it is both accurate and complete. HEP program mailed to pt for low back pain as requested. 10/06/2024 Debra Gustafson am scribing for Dr. Lerma. Dr. Florentin Khalil, personally performed the services described in this documentation, as scribed by Debra Emery, and it is both accurate and complete. Plan Of Treatment Next Appt Details Provider Name:Loly Erazo Camryn, 12/02/2024 03:40:00 PM, [address] [place], [id number], Insurance Providers Payer Name Payer Address Payer Phone Subscriber Number Group Number Insured Name Patient Relationship to Insured Coverage Start Date Coverage End Date [place] Medicaid [address] [place] [address] [phone] [id number] Dolores Carlson Self - patient is the insured Medical (General) History Medical History History ICD Code joint pian Arthritis seizure disorder Hypertension Blood clots headache/migraine Depression Anxiety Surgical History Surgery Date(Month/Year) SI joint fusion Lumbar fusion Hysterectomy Gallbladder Appendectomy Carpal Tunnel release Patella repair Tonsillectomy and adenoidectomy Hospitalization History Reason Date(Month/Year) See surgical Hx
--- OUTSIDE RECORDS SUMMARY | 2024-12-01 08:20 | XMS_ITS | Clinical Summary ---
Author Organization [facility] Address [address] Peñaloza: Epic Prelude ADT SEMAJ TAY [address] Care Team Providers Care Electrical Engineering Technician Name Role Phone Sb Le DO Primary Care Provider Allergies Active Allergy Reactions Criticality Noted Date Comments Hydrocodone Nausea and Vomiting Low 08/15/2015 Metoclopramide Hcl Anxiety Low 08/13/2021 Promethazine Nausea and Vomiting Low 08/15/2015 Medications lisinopril-hydroC HLOROthiazide (ZESTORETIC) 20-25 mg tablet Take 1 Tablet by mouth 2 times daily. Active DULoxetine (Cymbalta) 30 mg Capsule, Delayed Release(E.C.) Take 1 Capsule (30 mg) by mouth daily. Take 30 mg daily HS. Take the 60 mg capsule every morning. 30 Capsule 5 2 Active lisinopril-hydroC HLOROthiazide (ZESTORETIC) 20-12.5 mg tablet Take 1 Tablet by mouth daily. 6 Active FLUoxetine (PROzac) 40 mg capsule Take 40 mg by mouth daily. 6 Active morphine (MS IR) 15 mg tabletIndications :Acute exacerbation of chronic low back pain Take 1 Tablet (15 mg) by mouth every 4 hours as needed for Pain. Max Daily Amount: 90 mg 12 Tablet 4 Active Active Problems Problem Noted Date Diagnosed Date Bone lesion 05/03/2014 Overview (08/01/2021): Left tibia Encounters Date Type Department Care Team Description 11/17/2024 External Device Data [facility] ABSTRACTION Provider, Abstract 11/17/2024 External Device Data [facility] ABSTRACTION Provider, Abstract 10/20/2024 External Device Data [facility] ABSTRACTION Provider, Abstract 09/29/2024 External Device Data [facility] ABSTRACTION Provider, Abstract 09/08/2024 External Device Data [facility] ABSTRACTION Provider, Abstract from Last 3 Months Family History Medical History Relation Name Comments Pancreatic Cancer Father Diabetes Maternal Grandfather Diabetes Maternal Grandmother Hypertension Maternal Grandmother Stroke Maternal Grandmother Diabetes Mother Hypertension Mother Diabetes Paternal Grandfather Stroke Paternal Grandfather Diabetes Paternal Grandmother Lung Cancer Paternal Grandmother Relation Name Status Comments Father Maternal Grandfather Maternal Grandmother Mother Alive Paternal Grandfather Paternal Grandmother Social History Tobacco Use Types Packs/Day Years Used Date Smoking Tobacco: Every Day Cigarettes Smokeless Tobacco: Never Tobacco Cessation:Ready to Q uit: No; Counseling Given: Yes Alcohol Use Standard Drinks/Week Comments No 0 (1 standard drink = 0.6 oz pur e alcohol) Feeling Safe Answer Date Recorded Are you in a relationship wi th someone who hurts you emotionally and/or physically? 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 Gender Identity Not on file Sexual Orientation Not on file Last Filed Vital Signs Vital Sign Reading Time Taken Comments Blood Pressure 107/71 01/21/2024 2:54 PM CDT Pulse 81 01/21/2024 2:54 PM CDT Temperature 36.8 C (98.3 F) 01/21/2024 2:54 PM CDT Respiratory Rate 24 01/21/2024 2:54 PM CDT Oxygen Saturation 99% 01/21/2024 2:54 PM CDT Inhaled Oxygen Concentration - - Weight 113.4 kg (250 lb) 01/21/2024 2:54 PM CDT Height 165.1 cm (5' 5 ) 01/21/2024 2:54 PM CDT Body Mass Index 41.6 01/21/2024 2:54 PM CDT Plan of Treatment Health Maintenance Due Date Last Done Comments DTAP/TDAP/TD VACCINES (1 - Tdap) 1997 HEPATITIS B VACCINES (1 of 3 - 19+ 3-dose series) 1997 HPV/Cotest (21-29) 1999 CERVICAL CANCER SCREENING 2008 HPV/Cotest (30-65) 2008 PAP SMEAR 2008 BREAST CANCER SCREENING 2018 06/28/2014 COLORECTAL SCREENING 2023 Colorectal Cancer Screening 2023 FIT-DNA Q 3 years 2023 FIT/FOBT Q 1 year 2023 Flex Sig/CT Colonography Q 5 years 2023 Pre-Diabetes and Diabetes Screening 08/18/2024 08/18/2021 INFLUENZA VACCINE (#1) 2024 HPV VACCINES Aged Out No longer eligi ble based on patient's age to complete this topic Procedures Procedure Name Priority Date/Time Associated Diagnosis Comments HEMOGLOBIN A1C Routine 08/18/2021 2:41 PM CDT Pre-diabetes from Last 3 Months or Most Recently Relevant to Health Maintenance Results * HEMOGLOBIN A1C (08/18/2021 2:41 PM CDT) HEMOGLOBIN A1C 5.5 <5.7 % of total Hgb [facility] Comment: For the purpose of screening for the presence of diabetes: <5.7% Consistent with the absence of diabetes 5.7-6.4% Consistent with increased risk for diabetes (prediabetes) > or =6.5% Consistent with diabetes This assay result is consistent with a decreased risk of diabetes. Currently, no consensus exists regarding use of hemoglobin A1c for diagnosis of diabetes in children. According to [place] Diabetes Association (ADA) guidelines, hemoglobin A1c <7.0% represents optimal control in non- diabetic patients. Different metrics may apply to specific patient populations. Standards of Medical Care in Diabetes(ADA). ESTIMATED AVERAGE GLUCOSE (MG/DL) 111 mg/dL [facility] ESTIMATED AVERAGE GLUCOSE (MMOL/L) 6.2 mmol/L [facility] Comment: [facility]formed [facility]: [facility] [address] [place] [address] Delfino Miller D.O., MPH Blood 08/18/2021 2:41 PM CDT 08/19/2021 6:25 AM CDT us Cristine Galan SUPERVISOR FISH BAIT PROCESSING CHEMISTRY ORDERABLES Final Re sult [facility] [address] [place] [address] from Last 3 Months or Most Recently Relevant to Health Maintenance Insurance [place]ICAID [place] Care Teams Electrical Engineering Technician Relationship Specialty Start Date End Date Sb Le DO [address] [place] [address] [address] [place] [id number] PCP - General Family Practice 06/15/23
--- OUTSIDE RECORDS SUMMARY | 2024-12-01 08:20 | XMS_ITS | CCD ---
Author Name Interface, [id number] lity Address [place] [address] Organization [facility] Address [place] [address] Care Team Providers Care Dry Cleaning Teacher Name Role Phone Reyes GALDAMEZ, Db Unavailable Unavailable Allergies and Adverse Reactions Medication/Group Name Reaction Severity Date Opioids - Morphine Analogues Nausea 06/17/2014 acetaminophen Nausea 06/17/2014 hydrocodone bitartrate/acetaminophen Nausea 06/17/2014 Reason for Visit Functional Status Date Name Score 06/17/2014 Karnofsky performance status 80 07/14/2014 Karnofsky performance status 90 Medications Date Name Route Dose Frequency Instructions Start Date End Date Status 09/27/19 17 Acetaminophen-Cod eine Oral 300 mg-60 mg PO 1.0 TABLET( S) Q4H PRN pain 09/27/19 17 active 09/27/19 17 Fluoxetine Oral PO 1.0 CAPSULE (S) daily 09/27/19 17 active 09/27/19 17 Buspirone Oral PO 1.0 TABLET( S) TID 09/27/19 17 active 09/27/19 17 Lisinopril-Hydroc hlorothiazide Oral 20 mg-25 mg PO 1.0 TABLET( S) daily 09/27/19 17 active 09/27/19 17 Methocarbamol Oral PO 1.0 TABLET( S) tid 09/27/19 17 active 09/27/19 17 Apixaban Oral PO 1.0 TABLET( S) BID 09/27/19 17 active Problems Diagnosis Status Date of Diagnosis Resolution Date 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
--- OUTSIDE RECORDS SUMMARY | 2024-12-01 08:20 | XMS_ITS | Encounter Summary ---
Author Organization [facility] Address [address] [place] [address] Care Team Providers Care Bingo Caller Name Role Phone Sb eL Primary Care Provider Reason for Visit * Reason Onset Date Comments Medication Question 08/18/2021 Encounter Details Date Type Department Care Team (Late st Contact Info) Description 08/18/2021 Telephone [facility] Contact Center [facility] [address] [place] [address] [place] [address] Cristine Galan, SHUCKER [address] [place] [phone] Medication Question Social History Tobacco Use Types Packs/Day Years Used Date Smoking Tobacco: Every Day Cigarettes Smokeless Tobacco: Never Alcohol Use Standard Drinks/Week Comments No 0 (1 standard drink = 0.6 oz pur e alcohol) Comments No Sex and Gender Information Value Date Recorded Sex Assigned at Not on file 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 No / Unsure 08/13/2021 5:17 PM CDT documented as of this encounter Miscellaneous Notes * Telephone Encounter - Irina Perez - 08/18/2021 4:18 PM CDT Pharmacy calling in today stating that the patients insurance does not cover the naproxen (NAPROSYNEC) 500 mg Tablet, Delayed Release (E.C.) but will cover the normal naproxen 500mg. Would like to know if would like to change the script to the normal naproxen. Please advise. documented in this encounter Plan of Treatment Not on file documented as of this encounter Visit Diagnoses Not on filedocumented in this encounter Care Teams Bingo Caller Relationship Specialty Start Date End Date Sb Le DO [address] [place] [phone] PCP - General Family Practice 06/15/23 documented as of this encounter
[2024-12-01 08:37] VITALS: BP 173/114; PULSE 78; RESP 20; TEMP 36.7; O2SAT 98
--- NOTE | 2024-12-01 09:56 | W.ED.BACK ---
HPI - Back Pain/Injury General: Chief Complaint: Back Pain/Injury Stated Complaint: low back pain Time Seen by Provider: 12/01/24 08:18 Source: patient Mode of arrival: ambulatory Limitations: no limitations History of Present Illness: Patient is a 44-year-old female who is known to me here for chronic back pain. Patient states she has a longstanding history of low back pain. She states she has had multiple failed back surgeries. Patient states she sees [facility] for her chronic pain and states she normally takes morphine for this. Patient states over the past month or so she has been in [place] as she lost her and was having a celebration of life for him. She states while there her son also got sick as he is an end-stage dialysis patient. She states she spent time in the hospital with him. Because of her time in [place], she missed her pain management appointment here. She was able to contact them and rescheduled. She states she was rescheduled for tomorrow. She states eventually they are planning to move to [place] and she has been doing a lot of lifting during the move and feels like she exacerbated her back pain. She has not had any acute neurologic deficits. MD elicited complaint: back pain Pertinent past history: prior back pain Onset (ago): year(s) Timing: constant Severity: severe Similar Symptoms Previously: Yes Radiation: none Exacerbating factors: movement and walking Relieving factors: none Associated symptoms: Reports no associated symptoms; Deny abdominal pain, chills, dysuria, fatigue, fever(s) or hematuria Related Data Home Medications ?Medication ?Instructions ?Recorded ?Confirmed morphine 15 mg immediate release 15 mg PO .Q4-6H pain 03/27/24 10/15/24 tablet Previous Rx's ?Medication ?Instructions ?Recorded bupropion HCl 300 mg 24 hr tablet, 300 mg PO QAM #30 tabs 01/22/24 extended release morphine 15 mg tablet,extended 15 mg PO Q12H PRN back pain 7 days 01/22/24 release #14 tabs escitalopram oxalate 20 mg tablet 20 mg PO DAILY #30 tabs 03/06/24 olanzapine 20 mg disintegrating 20 mg PO BID #7 tabs 03/29/24 tablet (Zyprexa Zydis) amlodipine 5 mg tablet 5 mg PO BID Blood Pressure #60 tabs 04/02/24 lorazepam 2 mg tablet (Ativan) 2 mg buccal Q6H PRN nausea and 04/02/24 vomiting #14 tabs olanzapine 10 mg disintegrating 10 mg PO Q8H PRN nausea and 04/02/24 tablet vomiting #14 tabs cyclobenzaprine 10 mg tablet 10 mg PO Q8H PRN muscle spasm #20 06/03/24 tabs [id number]-[id number]-[id number] 3.5 1 drp ophthalmic (eye) Q8H #5 mL 09/27/24 mg/mL-10,000 unit/mL-0.1% eye drops (Maxitrol) prednisone 20 mg tablet 20 mg PO DAILY #15 tabs 10/15/24 Allergies Allergy/AdvReac Type Severity Reaction Status Date / Time adhesive tape Allergy ALGY-Rash Verified 10/15/24 14:58 haloperidol (From Haldol) Allergy ADR-Irritab Verified 10/15/24 14:58 le hydrocodone Allergy ADR-Nausea Verified 10/15/24 14:58 metoclopramide (From Reglan) Allergy ADR-Itching Verified 10/15/24 14:58 promethazine (From Phenergan) Allergy ADR-Vomitin Verified 10/15/24 14:58 g Review of Systems Const: Denies: fever(s), chills, body aches, fatigue or malaise Card: Denies: chest pain Resp: Denies: dyspnea GI: Denies: abdominal pain : Denies: flank pain, dysuria or hematuria Musc: Reports: back pain; Denies: neck pain, extremity pain, extremity swelling, joint pain or joint swelling Neuro: Denies: numbness in extremities, weakness in extremities or sensory changes [facility] ED PFSH: Medical History Acute viral syndrome Opioid contract exists Encounter for long-term opiate analgesic use Chronic low back pain with sciatica Rosacea History of pulmonary embolism post op, had DVT Dyslipidemia borderline by report, not on treatment Hypertension Chronic narcotic use ~ 2yrs, for back pain Obesity BMI 39 Surgical History History of appendectomy History of cholecystectomy H/O laminectomy History of carpal tunnel release left History of D&C History of hysterectomy due to life threatening bleeding while on anticoagulation for PE/DVT History of laparoscopic adjustable gastric banding History of tonsillectomy History of back surgery (~2018) History of right knee surgery (~2008) patellar realignment Family History Father Cancer pancreatic cancer Other Diabetes Heart disease Hypertension Social History Smoking and tobacco/nicotine status: never used tobacco/nicotine Alcohol intake: never Substance/Drug Use: never Lives independently: Yes Household members: spouse Current occupational status: disabled Female Reproductive History: Para: 3 Spontaneous abortions: No Physical Exam Const: COMMON NORMALS: patient oriented x3, no limitations, alert and well nourished GENERAL APPEARANCE: cooperative and other (tearful) NUTRITIONAL APPEARANCE: overweight ORIENTATION/CONSCIOUSNESS: Yes awake, Yes oriented to person, Yes oriented to place and Yes oriented to time Resp: COMMON NORMALS: normal respiratory effort and clear to auscultation bilaterally AUSCULTATION: clear to auscultation bilaterally Cardio: COMMON NORMALS: regular rate and regular rhythm RATE: regular rate RHYTHM: regular rhythm GI: COMMON NORMALS: non-tender and no masses : COMMON NORMALS: Yes no CVA tenderness BLADDER/KIDNEY EXAM: Yes no CVA tenderness Back/Pelvis: COMMON NORMALS: no CVA tenderness LUMBAR SPINE/LOWER BACK: Yes lumbar spinal tenderness and Yes straight leg raise negative bilaterally PELVIS: Yes buttocks normal and No sciatic notch tenderness SACROILIAC JOINTS: Yes SI joints normal SACRUM: no tenderness COCCYX: no tenderness Extremity: COMMON NORMALS: capillary refill normal, no clubbing, cyanosis or edema, no calf tenderness and no pedal edema GENERAL: Yes normal exam except as noted Neuro: COMMON NORMALS: patient oriented x3, moves all extremities, no focal motor deficits, no sensory deficits noted and gait normal SENSORIUM/ORIENTATION: Yes alert, Yes oriented to person, Yes oriented to place and Yes oriented to time Course Vital Signs: Vital signs: Vital Signs Temperature 98.0 F 12/01/24 08:37 Pulse Rate 78 12/01/24 08:37 Respiratory Rate 20 H 12/01/24 08:37 Blood Pressure 173/114 12/01/24 08:37 Pulse Oximetry 98 12/01/24 08:37 MDM - Back Pain/Injury Medical Decision Making Patient will be provided IM medications here. Will provide her 2 tablets of pain medication she can use today/this evening with plan to follow-up with her painting technician tomorrow. No radiology studies performed this visit Discharge Plan Discharge Patient Disposition: Home Clinical Impression: Chronic low back pain Qualifiers: Back pain laterality: midline Sciatica presence: without sciatica Qualified Code(s): M54.50 - Low back pain, unspecified Condition: Stable Prescriptions: No Action escitalopram oxalate 20 mg tablet 20 mg PO DAILY Qty: 30 0RF morphine 15 mg tablet extended release 15 mg PO Q12H MDD 2 PRN (Reason: back pain) 7 Days Qty: 14 0RF bupropion HCl 300 mg tablet extended release 24 hr 300 mg PO QAM Qty: 30 5RF povidone-iodine [Betadine Swabsticks] 10 % swab 2 applic topical ONCE Qty: 1 0RF neomycin-polymyxin B-dexameth [Maxitrol] 3.5mg/mL-10,000 unit/mL-0.1 % drops,suspension 1 drp ophthalmic (eye) Q8H Qty: 5 0RF prednisone 20 mg tablet 20 mg PO DAILY Qty: 15 0RF Rx Instructions: 60mg for three days, 40mg for two days, 20mg for two days cyclobenzaprine 10 mg tablet 10 mg PO Q8H PRN (Reason: muscle spasm) Qty: 20 0RF morphine 15 mg tablet 15 mg PO .Q4-6H olanzapine [Zyprexa Zydis] 20 mg tablet,disintegrating 20 mg PO BID Qty: 7 0RF olanzapine 10 mg tablet,disintegrating 10 mg PO Q8H PRN (Reason: nausea and vomiting) Qty: 14 0RF lorazepam [Ativan] 2 mg tablet 2 mg buccal Q6H PRN (Reason: nausea and vomiting) Qty: 14 0RF amlodipine 5 mg tablet 5 mg PO BID Qty: 60 0RF Discharge Orders: Discharge ED (Routine); Ordered 12/01/24 Ordered By: Suzan Hoffman Patient Instructions: Opioid Safety, Pain Management, Patient Portal & Klever Instructions Print Language: Sudanese Coding Level of Care Code ED Steel Construction Worker for Zabrina Burgess
[2024-12-01] MEDS: orphenadrine 30 mg/mL Inj 2 mL 60 MG IM (10:15)
[2024-12-01 10:16] VITALS: RESP 22; O2SAT 99
[2024-12-01] MEDS: oxyCODONE-APAP 5-325 mg Tablet 2 TAB PO (10:16)
[2024-12-01] MEDS: morphine 4 mg/mL SDV 1 mL IM (10:16)
[2024-12-01 10:18] VITALS: BP 180/100; PULSE 88; O2SAT 98
== END 2024-12-01 10:24 | disposition home or self-care (01) ==
PROVIDERS: Emergency Provider Physician Assistant
DX: M54.50 Low back pain, unspecified (principal); E78.5 Hyperlipidemia, unspecified; I10 Essential (primary) hypertension
CPT/HCPCS: 96372; 99284; J1100; J2270; J2360; J9999

== ENCOUNTER 2024-12-02 03:25 | Emergency (ER) | payer MEDICAID, SELFPAY ==
--- OUTSIDE RECORDS SUMMARY | 2018-03-09 19:00 | XMS_ITS | Continuity of Care Document ---
Author Organization [facility] Address [address] [place] [phone] Phone Care Team Providers Care Platinum Smith Name Role Phone Joseluis Anderson MD Unavailable Unavailable Procedures Procedure Date EEG, AWAKE AND ASLEEP EMERGENCY DEPT VISIT Advance Directives Directive Yes / No Effective Date File Name No Information Encounters Encounter Description Practice Location Reason(s) For Visit Diagnoses Date Provider Providers Copied on Encounter EMERGENCY DEPT VISIT Joseluis Anderson M.D., P.A., [address] [place] [address], [id number], tel:[phone] [facility] ER No Information Monica Huggins. [address] [place] [address], [id number], . tel:[phone] Referring Provider: Tmo Page, [address] DO NOT SEND RECORDS [place], [address]. tel:[phone] Family History Family Member Type Diagnosis Age At Onset No Information Payers Payer name Insurance type Covered green party ID Authoriza tion(s) [facility] Plan-Medicaid [id number] Social History Type Description Quantity Date Captured Comments Sex Female Smoking Status No Information Chief Complaint And Reason For Visit No Information Reason For Referral Reason For Referral No Information History Of Present Illness Encounter Date Complaint History Of Prese nt Illness No Information Functional Status Date Functional Assessmen t No Information Instructions Date Instruction Additional Infor mation No Information Assessments Type Assessment Date No Information Patient Care Teams Name Effective Dates (start - stop) Status Members No Information
--- OUTSIDE RECORDS SUMMARY | 2024-11-03 08:00 | XMS_ITS ---
Author Organization [facility] Address [address] [place] [address] Care Team Providers Care Field Technical Assistant Name Role Phone Chevy Cruz DO Primary Care Provider Loly Holder Unavailable REASON FOR VISIT 1 month f/u MD [...] Active Encounters Encounter Location Date Provider Diagnosis [facility] [place] [address] [place] [phone] 11/03/2024 Loly kirk Chronic pain syndrome G89.4 ; Spondylosis of lumbosacral region without myelopathy or radiculopathy M47.817 ; Disorder of sacrum M53.3 ; Pain in right hip M25.551 ; Lumbar post-laminectomy syndrome M96.1 ; Other low back pain M54.59 and intermission coordinator (current) use of opiate analgesic Z79.891 Assessments [...] low back pain (ICD-10 - M54.59) 11/03/2024 [facility] (current) use of opiate analgesic (ICD-10 - Z79.891) Plan Of Treatment Next Appt Details Provider Name:Loly Cowan, 12/02/2024 03:40:00 PM, [address] [place] [address], [phone], Progress Notes * YVROSE DoloresDOB:1980 (44 yo F)Acc No.[id number]:11/03/2024 Progress Notes Patient: Dolores JAMES Provider: Alpa Fried MD :1980 A ge:44 Y S ex:Female Date:11/03/2024 Address:[address] [place], [place] [phone] Pcp:Chevy Cruz DO Subjective: * Chief Complaints: [...] . Last Urine Drug Screen : . [place] Prescription Monitoring Program : Rosita ramirez Note: [...] an interventional pain physician, Dr. Goel, in [place] and was deemed not an interventional candidate at that time and had progressed to having her pain treated with Morphine extended release and immediate release which allowed her to function. 4 years ago, she moved to [facility] and was seen by Dr. Cruz for [...] esophageal cancer. They had been traveling to [place], [place] for her 's chemotherapy and radiation [...] ther low back pain - M54.59 7 .?intermission coordinator (current) use of opiate analgesic - Z79.891 Plan: * Treatment: Forms: * Billing Information: * Visit Code: * Procedure Codes: Care Plan Details* * Electronic signature of Leonor Fried MD on 12/02/2024 at 03:32 AM CDT Sign off status: Pending * Provider: Alpa Fried MD Date: 0 11/03/2024 Generated for Radha toledo/Sally/Oscaritting on: 0 12/02/2024 03:32 AM CDT History and Physical Notes * [...] an interventional pain physician, Dr. Goel, in [place] and was deemed not an interventional candidate at that time and had progressed to having her pain treated with Morphine extended release and immediate release which allowed her to function. 4 years ago, she moved to [facility] and was seen by Dr. Cruz for [...] esophageal cancer. They had been traveling to [place], [place] for her 's chemotherapy and radiation [...] Count : Last Urine Drug Screen : [place] Prescription Monitoring Program :
--- OUTSIDE RECORDS SUMMARY | 2024-12-02 03:32 | XMS_ITS | CCD ---
Author Name Interface, [id number] lity Address [place] [address] Organization [facility] Address [address] [address] Care Team Providers Care Senior Medical Writer Name Role Phone Reyes GALDAMEZ, Db Unavailable [...] S) TID 09/27/19 17 active 09/27/19 17 Methocarbamol Oral PO 1.0 TABLET( S) tid 09/27/19 17 active 09/27/19 17 Lisinopril-Hydroc hlorothiazide Oral 20 mg-25 mg PO 1.0 TABLET( S) daily 09/27/19 17 active 09/27/19 17 Apixaban Oral PO 1.0 TABLET( S) BID 09/27/19 17 active Problems Diagnosis Status Date of Diagnosis Resolution Date Chronic embolism and thrombo sis of unspecified vein Active Body mass index [BMI]40.0-44.9, adult Inactive group home (current) use of anticoagulants Active Pulmonary embolism (disorder) Active 04/2014 Obesity (disorder) Active Iron deficiency anemia (disorder) Active Social History Date Name Value Sex Female
--- OUTSIDE RECORDS SUMMARY | 2024-12-02 03:32 | XMS_ITS | Clinical Summary ---
Author Organization [facility] Address [address] Peñaloza: Epic Prelude ADT SEMAJ TAY [address] Care Team Providers Care Appliance Line Assembler Name Role Phone Sb Le DO Primary [...] on file Legal Sex Female 1:22 PM PALLET SORTER Gender Identity Not on file Sexual Orientation [...] A1C 5.5 <5.7 % of total Hgb [facility] Comment: For the purpose of screening for the presence of diabetes: <5.7% Consistent with the absence of diabetes 5.7-6.4% Consistent with increased risk for diabetes (prediabetes) > or =6.5% Consistent with diabetes This assay result is consistent with a decreased risk of diabetes. Currently, no consensus exists regarding use of hemoglobin A1c for diagnosis of diabetes in children. According to [place] Diabetes Association (ADA) guidelines, hemoglobin A1c <7.0% represents optimal control in non- diabetic patients. Different metrics may apply to specific patient populations. Standards of Medical Care in Diabetes(ADA). ESTIMATED AVERAGE GLUCOSE (MG/DL) 111 mg/dL [facility] ESTIMATED AVERAGE GLUCOSE (MMOL/L) 6.2 mmol/L [facility] Comment: Test Performed at: [facility] [address] [place] [address] Delfino Miller D.O., MPH Blood 08/18/2021 2:41 PM CDT 08/19/2021 6:25 AM CDT us Cristine Galan AIRCRAFT PARTS ASSEMBLER CHEMISTRY ORDERABLES Final Re sult [facility] [address] [place] [address] from Last 3 Months or Most Recently Relevant to Health Maintenance Insurance MEDICAID [place] Care Teams Appliance Line Assembler Relationship Specialty Start Date End Date Sb Le DO [address] [place] [address] [address] [place] [id number] PCP - General Family Practice 06/15/23
--- OUTSIDE RECORDS SUMMARY | 2024-12-02 03:32 | XMS_ITS | CCD ---
Author Name Interface, [id number] lity Address [place] [address] Organization [facility] Address [address] [address] Care Team Providers Care Wet Press Tender Name Role Phone Reyes GALDAMEZ, Db Unavailable [...] Active Body mass index [BMI]40.0-44.9, adult Inactive care home (current) use of anticoagulants Active Pulmonary embolism (disorder) Active 04/2014 Obesity (disorder) Active Iron deficiency anemia (disorder) Active Social History Date Name Value Sex Female
--- OUTSIDE RECORDS SUMMARY | 2024-12-02 03:33 | XMS_ITS | Encounter Summary ---
Author Organization [facility] Address [address] [place] [address] Care Team Providers Care Laborer Concrete Paving Name Role Phone Sb Le Primary Care Provider Reason for Visit * Reason Onset Date Comments Medication Question 08/18/2021 Encounter Details Date Type Department Care Team (Late st Contact Info) Description 08/18/2021 Telephone [facility] Contact Center [facility] [address] [place] [address] [place] [address] Cristine Galan, VIDEO TAPE EDITOR [address] [place] [phone] Medication Question Social History Tobacco Use Types Packs/Day Years Used Date Smoking Tobacco: Every Day Cigarettes Smokeless Tobacco: Never Alcohol Use Standard Drinks/Week Comments No 0 (1 standard drink = 0.6 oz pur e alcohol) Comments No Sex and Gender Information Value Date Recorded Sex Assigned at Not on file Legal Sex Female 1:22 PM PLASTIC SHAPER Gender Identity Not on file Sexual Orientation [...] on filedocumented in this encounter Care Teams Laborer Concrete Paving Relationship Specialty Start Date End Date Sb Le DO [address] [place] [phone] PCP - General Family Practice 06/15/23 documented as of this encounter
--- OUTSIDE RECORDS SUMMARY | 2024-12-02 03:33 | XMS_ITS | Patient Health Record ---
Author Organization [facility] Address [address] [place] [address] Care Team Providers Care Storage Battery Inspector And Tester Name Role Phone Chevy Cruz DO Primary Care Provider UnavailLoly Hansen Unavailable [phone] Migration, Provider Unavailable Unavailable Denise Lebron Unavailable [phone] Lively, Tommy Unavailable [phone] Allergies Allergen (clinical drug ingredient) Drug/Non Drug Allergy documented on EMR Reaction Allergy Type Onset Date Status promethazine Phenergan Unknown Drug Allergy Acti ve metoclopramide Reglan Unknown Drug Allergy Ac tive Adhesive Unknown Allergy Active hydrocodone Hydrocodone Unknown Drug Allergy Act emmanuel Results Component Value Reference Range Notes Tox Results Reviewed date:10/12/2024 02:49:40 PM Interpretation: Performing Lab: Notes/Report: Tox Results Reviewed date:09/15/2024 04:17:15 PM Interpretation: Performing Lab: Notes/Report: Urine Confirmation Panel (in strument) - [id number] Reviewed date:10/12/2024 02:46:29 PM Interpretation: Performing Lab: [...] 0 <60 ng/mL This test was d willie and its performance characteristics determined by Interventional [...] Administration. Urine Drug Screen (cup read) - [id number] Reviewed date:10/06/2024 08:31:14 AM Interpretation:Positive Performing Lab: Notes/Report: Positive BZO + OPI + Urine Confirmation Panel (in strument) - [id number] Reviewed date:09/15/2024 04:17:15 PM Interpretation: Performing Lab: [...] Administration. Urine Drug Screen (cup read) - [id number] Reviewed date:09/10/2024 01:41:55 PM Interpretation: Performing Lab: Notes/Report: BZO + Urine Drug Screen (cup read) - [id number] Reviewed date:05/07/2024 10:33:51 AM Interpretation:Negative Performing Lab: Notes/Report: Negative AMP - JOHNNY - BUP + BZO - MDMA - OPI - PCP - OXY - MTD - MAMP - zzzUrine Drug Screen (confir mation by instrument) - [id number] Reviewed date:06/30/2024 03:35:32 PM Interpretation: Performing Lab: Notes/Report: zzzUrine Drug Screen (confir mation by instrument) - [id number] Reviewed date:05/12/2024 02:29:30 PM Interpretation: Performing Lab: Notes/Report: Reason For Referral No Information Medications Medication SIG (Take, Route, Frequency, Duration) Notes Start Date End Date Status buPROPion HCl Active Escitalopram Oxalate Active Eliquis Active Ondansetron HCl Acti ve Linzess Active Methocarbamol Active Lisinopril-hydroCHLOROthiazi de Active Social History Tobacco Use: Social History Observation Description Date Details (start date - stop date) Current Smoker NA - NA Tobacco Control (Standard) Question Answer Notes Tobacco use: Current smoker How often do you smoke cigarettes? Every day Problems Problem Type SNOMED Code ICD Code Onset Dates Problem Status W/U Status Risk Notes Problem Chronic pain syndrome (202242474) Chronic pain syndrome (G89.4) Active confirmed Problem Lumbosacral spondylosis without myelopathy (45075573) Spondylosis of lumbosacral region without myelopathy or radiculopathy (M47.817) Active confirmed Problem Lumbar post-laminectom y syndrome (018229478) Lumbar post-laminectomy syndrome (M96.1) Active confirmed Vital Signs Height-cm 165.1 cm 09/10/2024 Weight-kg 99.79 kg 05/05/2024 Height 65 in 09/10/2024 Weight 220 lbs 05/05/2024 BMI 36.61 kg/m2 05/05/2024 Encounters Encounter Location Date Provider Diagnosis Migrated_Facility 0 0 03/21/2024 Provider Migration Migrated_Facility 0 0 03/22/2024 Provider Migration [facility] [address] [place] [address] 04/10/2024 Loly Ramires-Pric e [facility] [address] [place] [address] 04/13/2024 Loly Ramires-Pric e [facility] [address] [place] [address] 04/28/2024 Loly Ramires-Pric e [facility] [address] [facility] [place] [address] 06/04/2024 Loly Ramires-Pric e Chronic pain syndrome G89.4 [facility] [address] [facility] [place] [address] 06/19/2024 Loly Ramires-Pric e [facility] [address] [place] [address] 07/06/2024 Loly Lyuksyutova-Pric e [facility] [address] [facility] [place] [address] 08/27/2024 Loly Ludauksyutova-Pric e [facility] [address] [facility] [address] 09/10/2024 Loly Lyuksyutova-Pric e Lumbar post-laminectomy syndrome M96.1 [facility] [address] [place] [address] 09/11/2024 Denise Bernardino [facility] [address] [place] [address] 10/12/2024 Loly Laresuksyutova-Pric e Spondylosis of lumbosacral region without myelopathy or radiculopathy M47.817 [facility] [address] [facility] [place] [address] 01/30/2024 Loly Ludauksysuzanova-Pric e [facility] [place] [address] [place] [address] 05/05/2024 Loly Ludauksyutova-Pric e Chronic pain syndrome G89.4 ; Low back pain M54.50 ; Spondylosis of lumbosacral region without myelopathy or radiculopathy M47.817 ; Disorder of sacrum M53.3 ; Lumbar post-laminectomy syndrome M96.1 ; Pain in right hip M25.551 and Chronic use of opiate for therapeutic purpose Z79.891 [facility] [place] [facility] [address] [place] [address] 06/23/2024 Loly Lyuksyutova-Pric e Chronic pain syndrome G89.4 ; Spondylosis of lumbosacral region without myelopathy or radiculopathy M47.817 ; Disorder of sacrum M53.3 ; Lumbar post-laminectomy syndrome M96.1 ; Other low back pain M54.59 ; Pain in right hip M25.551 and penitentiary (current) use of opiate analgesic Z79.891 [facility] [address] [address] 09/10/2024 Denise Lebron Chronic pain syndrome G89.4 ; Spondylosis of lumbosacral region without myelopathy or radiculopathy M47.817 ; Disorder of sacrum M53.3 ; Pain in right hip M25.551 ; Lumbar post-laminectomy syndrome M96.1 ; Other low back pain M54.59 and train planner (current) use of opiate analgesic Z79.891 [facility] [address] [address] 10/06/2024 Loly kirk Chronic pain syndrome G89.4 ; Spondylosis of lumbosacral region without myelopathy or radiculopathy M47.817 ; Disorder of sacrum M53.3 ; Pain in right hip M25.551 ; Lumbar post-laminectomy syndrome M96.1 ; Other low back pain M54.59 and train planner (current) use of opiate analgesic Z79.891 [facility] [address] 01/03/2024 Tommy Wei [facility] [address] [address] 03/03/2024 Loly kirk Assessments Encounter Date Diagnosis (ICD Code) Assessment [...] effects are noted. Last UDS and [place] RESEARCH INSTRUCTOR reviewed today. Patient is advised that best [...] ADLs, denies abuse and side effects. The RESEARCH INSTRUCTOR was reviewed with no untoward events noted. [...] ADLs, denies abuse and side effects. The RESEARCH INSTRUCTOR was reviewed with no untoward events noted. [...] [facility] ER over her driving back between [place] and here. She understands that this is a violation of her pain contract. She's had a very difficult time over the last 12 months with the loss of her to cancer and now her son is going in and out of the hospital with stage 5 kidney failure. She is most likely going to be moving to [place] in the next 2-3 months. PDMP reviewed. [...] she's unable to find a physician in [place]. 10/12/2024 Spondylosis of lumbosacral region without myelopathy [...] low back pain (ICD-10 - M54.59) 06/23/2024 train planner (current) use of opiate analgesic (ICD-10 - [...] for therapeutic purpose (ICD-10 - Z79.891) 09/10/2024 penitentiary (current) use of opiate analgesic (ICD-10 - Z79.891) 10/06/2024 train planner (current) use of opiate analgesic (ICD-10 - [...] described in this documentation, as scribed by Derba Emery, and it is both accurate and complete. Total time spent caring for the patient today was greater than 25 minutes. This includes time spent before the visit reviewing the chart, time spent during the visit, and time spent after the visit on documentation 06/23/2024 Debra Gustafson am scribing for Dr. Lerma. [...] Name:Loly Erazo Camryn, 12/02/2024 03:40:00 PM, [address] [place], [address], Insurance Providers Payer Name Payer Address Payer Phone Subscriber Number Group Number Insured Name Patient Relationship to Insured Coverage Start Date Coverage End Date [place] Medicaid [address] [place] [address] [id number] Dolores Carlson Self - patient is the insured Medical (General) History Medical History History ICD Code joint pian Arthritis seizure disorder Hypertension Blood clots headache/migraine Depression Anxiety Surgical History Surgery Date(Month/Year) SI joint fusion Lumbar fusion Hysterectomy Gallbladder Appendectomy Carpal Tunnel release Patella repair Tonsillectomy and adenoidectomy Hospitalization History Reason Date(Month/Year) See surgical Hx
[2024-12-02 03:43] VITALS: BP 184/126; PULSE 79; RESP 18; TEMP 36.6; O2SAT 100; BMI 36.6
--- NOTE | 2024-12-02 03:48 | ED_ITS ---
HPI - General Adult General: Chief complaint: Back Pain/Injury Stated complaint: from lower back down both legs painful Time Seen by Provider: 12/02/24 03:48 History of Present Illness: Patient comes in with low back pain that radiates down both legs. Patient has a history of chronic low back pain. States that she has been back and forth out of town recently and has been off of her narcotic pain medications for a couple of weeks. Was seen here yesterday for the same and given morphine as well as a prescription for 2 Percocet tablets. She states that the pain was so bad she ended up taking both Percocet yesterday. States she has an appointment to see her pain management doctor this afternoon but the pain continued to be unrelenting and she came back to the emergency department. Denies any perianal numbness, urinary retention, or leg muscle weakness. On physical exam she has normal flexion and extension of bilateral hips, bilateral knees, bilateral ankles, bilateral big toes, and normal DTRs of bilateral knees. I informed her that we would be glad to treat her pain with nonnarcotics as she needs to see her pain management doctor for controlled substances. Will give her a dose of prednisone 40 mg p.o., and 30 mg of IM Toradol. Her exam and history are consi stent with her chronic back pain. There is no indication at this time for an emergent MRI. Will discharge and have her follow-up with her pain management doctor today. Associated symptoms: Deny dyspnea, nausea or vomiting Related Data Home Medications ?Medication ?Instructions ?Recorded ?Confirmed morphine 15 mg immediate release 15 mg PO .Q4-6H pain 03/27/24 10/15/24 tablet Previous Rx's ?Medication ?Instructions ?Recorded bupropion HCl 300 mg 24 hr tablet, 300 mg PO QAM #30 t abs 01/22/24 extended release morphine 15 mg tablet,extended 15 mg PO Q12H PRN back pain 7 days 01/22/24 release #14 tabs escitalopram oxalate 20 mg tablet 20 mg PO DAILY #30 t abs 03/06/24 olanzapine 20 mg disintegrating 20 mg PO BID #7 tabs 1 05/29/23 tablet (Zyprexa Zydis) amlodipine 5 mg tablet 5 mg PO BID Blood Pressure # 60 tabs 04/02/24 lorazepam 2 mg tablet (Ativan) 2 mg buccal Q6H PRN prasanth sea and 04/02/24 vomiting #14 tabs olanzapine 10 mg disintegrating 10 mg PO Q8H PRN nause a and 04/02/24 tablet vomiting #14 tabs cyclobenzaprine 10 mg tablet 10 mg PO Q8H PRN muscle s pasm #20 06/03/24 tabs [id number] 3.5 1 drp ophthalmic (eye) Q8H #5 mL 09/27/24 mg/mL-10,000 unit/mL-0.1% eye drops (Maxitrol) prednisone 20 mg tablet 20 mg PO DAILY #15 tabs 09/25 07/21 Allergies Allergy/AdvReac Type Severity Reaction Status Date / Time adhesive tape Allergy ALGY-Rash Verified 10/15/24 14:58 haloperidol (From Haldol) Allergy ADR-Irritab Verified 10/15/24 14:58 le hydrocodone Allergy ADR-Nausea Verified 10/15/24 14:58 metoclopramide (From Reglan) Allergy ADR-Itching Verified 10/15/24 14:58 promethazine (From Phenergan) Allergy ADR-Vomitin Verified 10/15/24 14:58 g Review of Systems Const: Denies: fever(s) Resp: Denies: dyspnea or productive cough GI: Denies: abdominal pain, nausea or vomiting PFSH ED PFSH: Medical History (Updated 12/02/24 @ 03:52 by Emeka Rodriguez MD) Acute viral syndrome Opioid contract exists Encounter for long-term opiate analgesic use Chronic low back pain with sciatica Rosacea History of pulmonary embolism post op, had DVT Dyslipidemia borderline by report, not on treatment Hypertension Chronic narcotic use ~ 2yrs, for back pain Obesity BMI 39 Surgical History History of appendectomy History of cholecystectomy H/O laminectomy History of carpal tunnel release left History of D&C History of hysterectomy due to life threatening bleeding while on anticoagulation for PE/DVT History of laparoscopic adjustable gastric banding History of tonsillectomy History of back surgery (~2017) History of right knee surgery (~2008) patellar realignment Family History Father Cancer pancreatic cancer Other Diabetes Heart disease Hypertension Social History Smoking and tobacco/nicotine status: never used tobacco/nicotine Alcohol intake: never Substance/Drug Use: never Lives independently: Yes Household members: spouse Current occupational status: disabled Female Reproductive History: Para: 3 Spontaneous abortions: No Physical Exam Const: COMMON NORMALS: healthy appearing HENMT: COMMON NORMALS: normocephalic and atraumatic HEAD & SCALP: normocephalic and atraumatic Neck/C-Spine: COMMON NORMALS: full ROM and supple Resp: COMMON NORMALS: normal respiratory effort, No retractions and No use of accessory muscles Cardio: COMMON NORMALS: regular rate RATE: regular rate Extremity: NARRATIVE EXTREMITY EXAM: Normal flexion and extension of bilateral hips, bilateral knees, bilateral ankles, bilateral big toes, normal DTRs of bilateral knees MDM - General Adult Medical Decision Making n No radiology studies performed this visit Discharge Plan Discharge Patient Disposition: Home Clinical Impression: Chronic low back pain Qualifiers: Back pain laterality: midline Sciatica presence: without sciatica Qualified Code(s): M54.50 - Low back pain, unspecified Condition: Stable Prescriptions: No Action escitalopram oxalate 20 mg tablet 20 mg PO DAILY Qty: 30 0RF morphine 15 mg tablet extended release 15 mg PO Q12H MDD 2 PRN (Reason: back pain) 7 Days Qty: 14 0RF bupropion HCl 300 mg tablet extended release 24 hr 300 mg PO QAM Qty: 30 5RF povidone-iodine [Betadine Swabsticks] 10 % swab 2 applic topical ONCE Qty: 1 0RF neomycin-polymyxin B-dexameth [Maxitrol] 3.5mg/mL-10,000 unit/mL-0.1 % drops,suspension 1 drp ophthalmic (eye) Q8H Qty: 5 0RF prednisone 20 mg tablet 20 mg PO DAILY Qty: 15 0RF Rx Instructions: 60mg for three days, 40mg for two days, 20mg for two days cyclobenzaprine 10 mg tablet 10 mg PO Q8H PRN (Reason: muscle spasm) Qty: 20 0RF morphine 15 mg tablet 15 mg PO .Q4-6H olanzapine [Zyprexa Zydis] 20 mg tablet,disintegrating 20 mg PO BID Qty: 7 0RF olanzapine 10 mg tablet,disintegrating 10 mg PO Q8H PRN (Reason: nausea and vomiting) Qty: 14 0RF lorazepam [Ativan] 2 mg tablet 2 mg buccal Q6H PRN (Reason: nausea and vomiting) Qty: 14 0RF amlodipine 5 mg tablet 5 mg PO BID Qty: 60 0RF Discharge Orders: Discharge ED (Routine); Ordered 12/02/24 Ordered By: Emeka Rodriguez Patient Instructions: Opioid Safety, Pain Management, Patient Portal & Klever Instructions Print Language: Burundian Coding Level of Care Code 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
--- NOTE | 2024-12-02 03:58 | W.ED.BACK ---
HPI - Back Pain/Injury General: Chief Complaint: Back Pain/Injury Stated Complaint: from lower back down both legs painful Time Seen by Provider: 12/02/24 03:48 Related Data Home Medications ?Medication ?Instructions ?Recorded ?Confirmed morphine 15 mg immediate release 15 mg PO .Q4-6H pain 03/27/24 10/15/24 tablet Previous Rx's ?Medication ?Instructions ?Recorded bupropion HCl 300 mg 24 hr tablet, 300 mg PO QAM #30 tabs 01/22/24 extended release morphine 15 mg tablet,extended 15 mg PO Q12H PRN back pain 7 days 01/22/24 release #14 tabs escitalopram oxalate 20 mg tablet 20 mg PO DAILY #30 tabs 03/06/24 olanzapine 20 mg disintegrating 20 mg PO BID #7 tabs 03/29/24 tablet (Zyprexa Zydis) amlodipine 5 mg tablet 5 mg PO BID Blood Pressure #60 tabs 04/02/24 lorazepam 2 mg tablet (Ativan) 2 mg buccal Q6H PRN nausea and 04/02/24 vomiting #14 tabs olanzapine 10 mg disintegrating 10 mg PO Q8H PRN nausea and 04/02/24 tablet vomiting #14 tabs cyclobenzaprine 10 mg tablet 10 mg PO Q8H PRN muscle spasm #20 06/03/24 tabs bpsfrfgb-abiaokiya-ljcupsva 3.5 1 drp ophthalmic (eye) Q8H #5 mL 09/27/24 mg/mL-10,000 unit/mL-0.1% eye drops (Maxitrol) prednisone 20 mg tablet 20 mg PO DAILY #15 tabs 10/15/24 naproxen 375 mg tablet 375 mg PO BID #10 tabs 12/02/24 prednisone 20 mg tablet 40 mg (2 x 20 mg) PO DAILY 3 days 12/02/24 #8 tabs Allergies Allergy/AdvReac Type Severity Reaction Status Date / Time adhesive tape Allergy ALGY-Rash Verified 10/15/24 14:58 haloperidol (From Haldol) Allergy ADR-Irritab Verified 10/15/24 14:58 le hydrocodone Allergy ADR-Nausea Verified 10/15/24 14:58 metoclopramide (From Reglan) Allergy ADR-Itching Verified 10/15/24 14:58 promethazine (From Phenergan) Allergy ADR-Vomitin Verified 10/15/24 14:58 g PFSH ED PFSH: Medical History (Updated 12/02/24 @ 03:52 by Emeka Rodriguez MD) Acute viral syndrome Opioid contract exists Encounter for long-term opiate analgesic use Chronic low back pain with sciatica Rosacea History of pulmonary embolism post op, had DVT Dyslipidemia borderline by report, not on treatment Hypertension Chronic narcotic use ~ 2yrs, for back pain Obesity BMI 39 Surgical History History of appendectomy History of cholecystectomy H/O laminectomy History of carpal tunnel release left History of D&C History of hysterectomy due to life threatening bleeding while on anticoagulation for PE/DVT History of laparoscopic adjustable gastric banding History of tonsillectomy History of back surgery (~2017) History of right knee surgery (~2008) patellar realignment Family History Father Cancer pancreatic cancer Other Diabetes Heart disease Hypertension Social History Smoking and tobacco/nicotine status: never used tobacco/nicotine Alcohol intake: never Substance/Drug Use: never Lives independently: Yes Household members: spouse Current occupational status: disabled Female Reproductive History: Para: 3 Spontaneous abortions: No Course Vital Signs: Vital signs: Vital Signs Temperature 97.9 F 12/02/24 03:43 Pulse Rate 79 12/02/24 03:43 Respiratory Rate 18 12/02/24 03:43 Blood Pressure 184/126 12/02/24 03:43 Pulse Oximetry 100 12/02/24 03:43 Oxygen Delivery Me thod Room Air 12/02/24 03:43 Discharge Plan Discharge Patient Disposition: Home Clinical Impression: Chronic low back pain Qualifiers: Back pain laterality: midline Sciatica presence: without sciatica Qualified Code(s): M54.50 - Low back pain, unspecified Condition: Stable Prescriptions: New prednisone 20 mg tablet 40 mg PO DAILY 3 Days Qty: 8 0RF naproxen 375 mg tablet 375 mg PO BID Qty: 10 0RF No Action escitalopram oxalate 20 mg tablet 20 mg PO DAILY Qty: 30 0RF morphine 15 mg tablet extended release 15 mg PO Q12H MDD 2 PRN (Reason: back pain) 7 Days Qty: 14 0RF bupropion HCl 300 mg tablet extended release 24 hr 300 mg PO QAM Qty: 30 5RF povidone-iodine [Betadine Swabsticks] 10 % swab 2 applic topical ONCE Qty: 1 0RF neomycin-polymyxin B-dexameth [Maxitrol] 3.5mg/mL-10,000 unit/mL-0.1 % drops,suspension 1 drp ophthalmic (eye) Q8H Qty: 5 0RF prednisone 20 mg tablet 20 mg PO DAILY Qty: 15 0RF Rx Instructions: 60mg for three days, 40mg for two days, 20mg for two days cyclobenzaprine 10 mg tablet 10 mg PO Q8H PRN (Reason: muscle spasm) Qty: 20 0RF morphine 15 mg tablet 15 mg PO .Q4-6H olanzapine [Zyprexa Zydis] 20 mg tablet,disintegrating 20 mg PO BID Qty: 7 0RF olanzapine 10 mg tablet,disintegrating 10 mg PO Q8H PRN (Reason: nausea and vomiting) Qty: 14 0RF lorazepam [Ativan] 2 mg tablet 2 mg buccal Q6H PRN (Reason: nausea and vomiting) Qty: 14 0RF amlodipine 5 mg tablet 5 mg PO BID Qty: 60 0RF Discharge Orders: Discharge ED (Routine); Ordered 12/02/24 Ordered By: Emeka Rodriguez Patient Instructions: Opioid Safety, Pain Management, Patient Portal & Klever Instructions Print Language: Moldovan Coding Level of Care Code ED 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
[2024-12-02 04:42] VITALS: BP 199/114; PULSE 71; RESP 22; O2SAT 100
== END 2024-12-02 04:40 | disposition home or self-care (01) ==
PROVIDERS: Emergency Provider Emergency Medicine
DX: M54.50 Low back pain, unspecified (principal); E78.5 Hyperlipidemia, unspecified; I10 Essential (primary) hypertension
CPT/HCPCS: 96372; 99284; J1885; J7512

== ENCOUNTER 2025-02-26 17:06 | Emergency (ER) | payer MEDICAID, SELFPAY ==
--- OUTSIDE RECORDS SUMMARY | 2018-03-09 19:00 | XMS_ITS | Continuity of Care Document ---
Author Organization [facility] Address [address] [place] [phone] Phone Care Team Providers Care Bilingual Operator Name Role Phone Joseluis Anderson MD Unavailable Unavailable Procedures Procedure Date EEG, AWAKE AND ASLEEP EMERGENCY DEPT VISIT Advance Directives Directive Yes / No Effective Date File Name No Information Encounters Encounter Description Practice Location Reason(s) For Visit Diagnoses Date Provider Providers Copied on Encounter EMERGENCY DEPT VISIT [facility]eluis Anderson M[facility] P.A., [address] [place] [address], [id number], tel:[phone] [facility] No Information Monica Huggins. [address] [place] [address], [id number], . tel:[phone] Referring Provider: Tom Page, [address] DO NOT SEND RECORDS [place], [address]. tel:[phone] Family History Family Member Type Diagnosis Age At Onset No Information Payers Payer name Insurance type Covered libertarian ID Authoriza tion(s) [facility] Plan-Medicaid [id number] Social History Type Description Quantity Date Captured [...]
[2025-02-26 17:10] VITALS: BP 198/117; PULSE 81; RESP 20; O2SAT 94
--- OUTSIDE RECORDS SUMMARY | 2025-02-26 17:20 | XMS_ITS | Clinical Summary ---
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
--- OUTSIDE RECORDS SUMMARY | 2025-02-26 17:21 | XMS_ITS | CCD ---
Author Name Interface, [id number] lity Address [place] [address] Organization [facility] Address [place] [address] Care Team Providers Care Applications Systems Analyst Name Role Phone Reyes GALDAMEZ, Db Unavailable Unavailable Allergies and Adverse Reactions Medication/Group Name Reaction Severity Date Opioids - Morphine Analogues Nausea 06/17/2014 acetaminophen Nausea 06/17/2014 hydrocodone bitartrate/acetaminophen Nausea 06/17/2014 Reason for Visit Functional Status Date Name/Question Score/Answer 06/17/2014 Karnofsky performance status 80 07/14/2014 Karnofsky performance status 90 Medications Date Name Route Dose Frequency Instructions Start Date End Date Status Fill Status Indication 10/28 Lisinopril -Hydrochlo rothiazide Oral 20 mg-25 mg PO 1.0 TABLE T(S) daily 2016 active 10/28 Buspirone Oral PO 1.0 TABLE T(S) TID 2016 active 10/28 Acetaminop hen-Codein e Oral 300 mg-60 mg PO 1.0 TABLE T(S) Q4H PRN pain 2016 active 10/28 Apixaban Oral PO 1.0 TABLE T(S) BID 2016 active 10/28 Fluoxetine Oral PO 1.0 CAPSU LE(S) daily 2016 active 10/28 Methocarba mol Oral PO 1.0 TABLE T(S) tid 2016 active Problems Diagnosis Status Date of Diagnosis Resolution Date Chronic embolism and thrombo sis of unspecified vein Active Body mass index [BMI]40.0-44.9, adult 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
--- OUTSIDE RECORDS SUMMARY | 2025-02-26 17:21 | XMS_ITS | Encounter Summary ---
Author Organization [facility] Address [address] [place] [address] Care Team Providers Care Cold Strip Roller Name Role Phone Sb Le Primary Care Provider Reason for Visit * Reason Onset Date Comments Medication Question 08/18/2021 Encounter Details Date Type Department Care Team (Late st Contact Info) Description 08/18/2021 Telephone [facility] Contact Center [facility] [address] [place] [address] [place] [phone] Cristine Galan, PATIENT SAFETY COORDINATOR [address], [place] [address] Medication Question Social History Tobacco Use Types Packs/Day Years Used Date Smoking Tobacco: Every Day Cigarettes Smokeless Tobacco: Never Alcohol Use Standard Drinks/Week Comments No 0 (1 standard drink = 0.6 oz pur e alcohol) Comments No Sex and Gender Information Value Date Recorded Sex Assigned at Not on file 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
--- OUTSIDE RECORDS SUMMARY | 2025-02-26 17:21 | XMS_ITS | Patient Health Record ---
Author Organization [facility] Address [address] [place] [address] Care Team Providers Care Burner Hand Name Role Phone Chevy Cruz DO Primary Care Provider UnavailLoly Hansen Unavailable Migration, Provider Unavailable Unavailable Denise Lebron Unavailable [phone] Allergies Allergen (clinical drug ingredient) Drug/Non Drug Allergy documented on EMR Reaction Allergy Type Onset Date Status promethazine Phenergan Unknown Drug Allergy Acti ve metoclopramide Reglan Unknown Drug Allergy Ac tive Adhesive Unknown Allergy Active hydrocodone Hydrocodone Unknown Drug Allergy Act emmanuel Results Component Value Reference Range Flag Notes zzzUrine Drug Screen (confir mation by instrument) - [id number] Reviewed date:06/30/2024 03:35:32 PM Interpretation: Performing Lab: Notes/Report: Tox Results Reviewed date:10/12/2024 02:49:40 PM Interpretation: Performing Lab: Notes/Report: Tox Results Reviewed date:09/15/2024 04:17:15 PM Interpretation: Performing Lab: Notes/Report: zzzUrine Drug Screen (confir mation by instrument) - [id number] Reviewed date:05/12/2024 02:29:30 PM Interpretation: Performing Lab: Notes/Report: Urine Confirmation Panel (in strument) - [id number] Reviewed date:10/12/2024 02:46:29 PM Interpretation: Performing Lab: Notes/Report: 6-Acetylmorphine 0 <6 ng/mL N This nita t was developed and its performance characteristics determined by [facility]. It has not been cleared or approved by the U.S. Food and Drug Administration. 7-Aminoclonazepam 0 <60 ng/mL N This te st was developed and its performance characteristics determined by [facility]. It has not been cleared or approved by the U.S. Food and Drug Administration. Alprazolam 0 <60 ng/mL N This test was developed and its performance characteristics determined by [facility]. It has not been cleared or approved by the U.S. Food and Drug Administration. Amphetamine 0 <75 ng/mL N This test was developed and its performance characteristics determined by [facility]. It has not been cleared or approved by the U.S. Food and Drug Administration. aOH-Alprazolam 0 <60 ng/mL N This test was developed and its performance characteristics determined by [facility]. It has not been cleared or approved by the U.S. Food and Drug Administration. Buprenorphine 0.0 <7.5 ng/mL N This test w as developed and its performance characteristics determined by [facility]. It has not been cleared or approved by the U.S. Food and Drug Administration. Norbuprenorphine 0.0 <37.5 ng/mL N This te st was developed and its performance characteristics determined by [facility]. It has not been cleared or approved by the U.S. Food and Drug Administration. Carisoprodol 0 <75 ng/mL N This test wa s developed and its performance characteristics determined by [facility]. It has not been cleared or approved by the U.S. Food and Drug Administration. Codeine 0 <75 ng/mL N This test was developed and its performance characteristics determined by [facility]. It has not been cleared or approved by the U.S. Food and Drug Administration. EDDP 0 <75 ng/mL N This test was developed and its performance characteristics determined by [facility]. It has not been cleared or approved by the U.S. Food and Drug Administration. Fentanyl 0 <6 ng/mL N This test was developed and its performance characteristics determined by [facility]. It has not been cleared or approved by the U.S. Food and Drug Administration. Hydrocodone 0 <75 ng/mL N This test was developed and its performance characteristics determined by [facility]. It has not been cleared or approved by the U.S. Food and Drug Administration. Hydromorphone 155 <75 ng/mL H This test w as developed and its performance characteristics determined by [facility]. It has not been cleared or approved by the U.S. Food and Drug Administration. Lorazepam 0 <60 ng/mL N This test was developed and its performance characteristics determined by [facility]. It has not been cleared or approved by the U.S. Food and Drug Administration. MDMA 0 <75 ng/mL N This test was developed and its performance characteristics determined by [facility]. It has not been cleared or approved by the U.S. Food and Drug Administration. Meperidine 0.0 <37.5 ng/mL N This test was developed and its performance characteristics determined by [facility]. It has not been cleared or approved by the U.S. Food and Drug Administration. Meprobamate 0 <75 ng/mL N This test was developed and its performance characteristics determined by [facility]. It has not been cleared or approved by the U.S. Food and Drug Administration. Methamphetamine 0 <75 ng/mL N This test was developed and its performance characteristics determined by [facility]. It has not been cleared or approved by the U.S. Food and Drug Administration. Methadone 3 <75 ng/mL N This test was developed and its performance characteristics determined by [facility]. It has not been cleared or approved by the U.S. Food and Drug Administration. Morphine 3636 <75 ng/mL H This test was developed and its performance characteristics determined by [facility]. It has not been cleared or approved by the U.S. Food and Drug Administration. Nordiazepam 0 <60 ng/mL N This test was developed and its performance characteristics determined by [facility]. It has not been cleared or approved by the U.S. Food and Drug Administration. Norfentanyl 0 <6 ng/mL N This test was developed and its performance characteristics determined by [facility]. It has not been cleared or approved by the U.S. Food and Drug Administration. Normeperidine 0.0 <37.5 ng/mL N This test was developed and its performance characteristics determined by [facility]. It has not been cleared or approved by the U.S. Food and Drug Administration. O-desmethyltramadol 0 <75 ng/mL N This test was developed and its performance characteristics determined by [facility]. It has not been cleared or approved by the U.S. Food and Drug Administration. Oxazepam 0 <60 ng/mL N This test was developed and its performance characteristics determined by [facility]. It has not been cleared or approved by the U.S. Food and Drug Administration. Oxycodone 0.0 <37.5 ng/mL N This test was developed and its performance characteristics determined by [facility]. It has not been cleared or approved by the U.S. Food and Drug Administration. Oxymorphone 4 <75 ng/mL N This test was developed and its performance characteristics determined by [facility]. It has not been cleared or approved by the U.S. Food and Drug Administration. Phencyclidine 0.0 <7.5 ng/mL N This test w as developed and its performance characteristics determined by [facility]. It has not been cleared or approved by the U.S. Food and Drug Administration. Tapentadol 3.1 <37.5 ng/mL N This test was developed and its performance characteristics determined by [facility]. It has not been cleared or approved by the U.S. Food and Drug Administration. Temazepam 5 <60 ng/mL N This test was developed and its performance characteristics determined by [facility]. It has not been cleared or approved by the U.S. Food and Drug Administration. Tramadol 0 <75 ng/mL N This test was developed and its performance characteristics determined by [facility]. It has not been cleared or approved by the U.S. Food and Drug Administration. Norhydrocodone 0 <75 ng/mL N This test was developed and its performance characteristics determined by [facility]. It has not been cleared or approved by the U.S. Food and Drug Administration. Noroxycodone 0 <38 ng/mL N This test wa s developed and its performance characteristics determined by [facility]. It has not been cleared or approved by the U.S. Food and Drug Administration. Pregabalin 0 <225 ng/mL N This test was developed and its performance characteristics determined by [facility]. It has not been cleared or approved by the U.S. Food and Drug Administration. Gabapentin 0 <225 ng/mL N This test was developed and its performance characteristics determined by [facility]. It has not been cleared or approved by the U.S. Food and Drug Administration. Benzoylecgonine 0.0 <37.5 ng/mL N This nita t was developed and its performance characteristics determined by [facility]. It has not been cleared or approved by the U.S. Food and Drug Administration. 4-Hydroxy Xylazine 0 <25 ng/mL N This t est was developed and its performance characteristics determined by [facility]. It has not been cleared or approved by the U.S. Food and Drug Administration. Urine Drug Screen (cup read) - [id number] Reviewed date:10/06/2024 08:31:14 AM Interpretation:Positive Performing Lab: Notes/Report: Positive BZO + OPI + Urine Confirmation Panel (in strument) - [id number] Reviewed date:09/15/2024 04:17:15 PM Interpretation: Performing Lab: Notes/Report: 6-Acetylmorphine 0 <6 ng/mL N This nita t was developed and its performance characteristics determined by [facility]. It has not been cleared or approved by the U.S. Food and Drug Administration. 7-Aminoclonazepam 0 <60 ng/mL N This te st was developed and its performance characteristics determined by [facility]. It has not been cleared or approved by the U.S. Food and Drug Administration. Alprazolam 0 <60 ng/mL N This test was developed and its performance characteristics determined by [facility]. It has not been cleared or approved by the U.S. Food and Drug Administration. Amphetamine 0 <75 ng/mL N This test was developed and its performance characteristics determined by [facility]. It has not been cleared or approved by the U.S. Food and Drug Administration. aOH-Alprazolam 0 <60 ng/mL N This test was developed and its performance characteristics determined by [facility]. It has not been cleared or approved by the U.S. Food and Drug Administration. Buprenorphine 0.0 <7.5 ng/mL N This test w as developed and its performance characteristics determined by [facility]. It has not been cleared or approved by the U.S. Food and Drug Administration. Norbuprenorphine 0.0 <37.5 ng/mL N This te st was developed and its performance characteristics determined by [facility]. It has not been cleared or approved by the U.S. Food and Drug Administration. Carisoprodol 0 <75 ng/mL N This test wa s developed and its performance characteristics determined by [facility]. It has not been cleared or approved by the U.S. Food and Drug Administration. Codeine 0 <75 ng/mL N This test was developed and its performance characteristics determined by [facility]. It has not been cleared or approved by the U.S. Food and Drug Administration. EDDP 0 <75 ng/mL N This test was developed and its performance characteristics determined by [facility]. It has not been cleared or approved by the U.S. Food and Drug Administration. Fentanyl 0 <6 ng/mL N This test was developed and its performance characteristics determined by [facility]. It has not been cleared or approved by the U.S. Food and Drug Administration. Hydrocodone 0 <75 ng/mL N This test was developed and its performance characteristics determined by [facility]. It has not been cleared or approved by the U.S. Food and Drug Administration. Hydromorphone 38 <75 ng/mL N This test w as developed and its performance characteristics determined by [facility]. It has not been cleared or approved by the U.S. Food and Drug Administration. Lorazepam 0 <60 ng/mL N This test was developed and its performance characteristics determined by [facility]. It has not been cleared or approved by the U.S. Food and Drug Administration. MDMA 0 <75 ng/mL N This test was developed and its performance characteristics determined by [facility]. It has not been cleared or approved by the U.S. Food and Drug Administration. Meperidine 0.0 <37.5 ng/mL N This test was developed and its performance characteristics determined by [facility]. It has not been cleared or approved by the U.S. Food and Drug Administration. Meprobamate 0 <75 ng/mL N This test was developed and its performance characteristics determined by [facility]. It has not been cleared or approved by the U.S. Food and Drug Administration. Methamphetamine 0 <75 ng/mL N This test was developed and its performance characteristics determined by [facility]. It has not been cleared or approved by the U.S. Food and Drug Administration. Methadone 0 <75 ng/mL N This test was developed and its performance characteristics determined by [facility]. It has not been cleared or approved by the U.S. Food and Drug Administration. Morphine 0 <75 ng/mL N This test was developed and its performance characteristics determined by [facility]. It has not been cleared or approved by the U.S. Food and Drug Administration. Nordiazepam 4 <60 ng/mL N This test was developed and its performance characteristics determined by [facility]. It has not been cleared or approved by the U.S. Food and Drug Administration. Norfentanyl 0 <6 ng/mL N This test was developed and its performance characteristics determined by [facility]. It has not been cleared or approved by the U.S. Food and Drug Administration. Normeperidine 0.0 <37.5 ng/mL N This test was developed and its performance characteristics determined by [facility]. It has not been cleared or approved by the U.S. Food and Drug Administration. O-desmethyltramadol 0 <75 ng/mL N This test was developed and its performance characteristics determined by [facility]. It has not been cleared or approved by the U.S. Food and Drug Administration. Oxazepam 106 <60 ng/mL H This test was developed and its performance characteristics determined by [facility]. It has not been cleared or approved by the U.S. Food and Drug Administration. Oxycodone 0.0 <37.5 ng/mL N This test was developed and its performance characteristics determined by [facility]. It has not been cleared or approved by the U.S. Food and Drug Administration. Oxymorphone 0 <75 ng/mL N This test was developed and its performance characteristics determined by [facility]. It has not been cleared or approved by the U.S. Food and Drug Administration. Phencyclidine 0.0 <7.5 ng/mL N This test w as developed and its performance characteristics determined by [facility]. It has not been cleared or approved by the U.S. Food and Drug Administration. Tapentadol 0.0 <37.5 ng/mL N This test was developed and its performance characteristics determined by [facility]. It has not been cleared or approved by the U.S. Food and Drug Administration. Temazepam 85 <60 ng/mL H This test was developed and its performance characteristics determined by [facility]. It has not been cleared or approved by the U.S. Food and Drug Administration. Tramadol 0 <75 ng/mL N This test was developed and its performance characteristics determined by [facility]. It has not been cleared or approved by the U.S. Food and Drug Administration. Norhydrocodone 0 <75 ng/mL N This test was developed and its performance characteristics determined by [facility]. It has not been cleared or approved by the U.S. Food and Drug Administration. Noroxycodone 0 <38 ng/mL N This test wa s developed and its performance characteristics determined by [facility]. It has not been cleared or approved by the U.S. Food and Drug Administration. Pregabalin 0 <225 ng/mL N This test was developed and its performance characteristics determined by [facility]. It has not been cleared or approved by the U.S. Food and Drug Administration. Gabapentin 0 <225 ng/mL N This test was developed and its performance characteristics determined by [facility]. It has not been cleared or approved by the U.S. Food and Drug Administration. Benzoylecgonine 0.0 <37.5 ng/mL N This nita t was developed and its performance characteristics determined by [facility]. It has not been cleared or approved by the U.S. Food and Drug Administration. 4-Hydroxy Xylazine 0 <25 ng/mL N This t est was developed and its performance characteristics determined by [facility]. It has not been cleared or approved by the U.S. Food and Drug Administration. Urine Drug Screen (cup read) - [id number] Reviewed date:09/10/2024 01:41:55 PM Interpretation: Performing Lab: Notes/Report: BZO + Urine Drug Screen (cup read) - [id number] Reviewed date:05/07/2024 10:33:51 AM Interpretation:Negative Performing Lab: Notes/Report: Negative AMP - JOHNNY - BUP + BZO - MDMA - OPI - PCP - OXY - MTD - MAMP - Reason For Referral No Information Medications Medication SIG (Take, Route, Frequency, Duration) Notes Start Date End Date Status buPROPion HCl Active Escitalopram Oxalate Active Eliquis Active Ondansetron HCl Acti ve Linzess Active Methocarbamol Active Lisinopril-hydroCHLOROthiazi de Active Social History Tobacco Use: Social History Observation Description Date Details (start date - stop date) Current Smoker NA - NA Social History Drugs/Alcohol: Social Info Question Answer Notes Drugs Have you used drugs other than those for medical reasons in the past 12 months? No Tobacco Use: Social Info Question Answer Notes Tobacco Control (Standard) Tobacco use: Current smoker How often do you smoke cigarettes? Every day Additional Details Category Social Info Options Details Drugs/Alcohol: Do you drink alcohol? No Problems Problem Type SNOMED Code ICD Code Onset Dates Problem Status W/U Status Risk Notes Problem Chronic pain syndrome (958919116) Chronic pain syndrome (G89.4) Active confirmed Problem Lumbosacral spondylosis without myelopathy (81635923) Spondylosis of lumbosacral region without myelopathy or radiculopathy (M47.817) Active confirmed Problem Lumbar post-laminectom y syndrome (266081546) Lumbar post-laminectomy syndrome (M96.1) Active confirmed Vital Signs Height-cm 165.1 cm 09/10/2024 Weight-kg 99.79 kg 05/05/2024 Height 65 in 09/10/2024 Weight 220 lbs 05/05/2024 BMI 36.61 kg/m2 05/05/2024 Encounters Encounter Location Date Provider Diagnosis [facility] [address] [address] 03/03/2024 Loly kirk [facility] [address] [address] 05/05/2024 Loly kirk Chronic pain syndrome G89.4 ; Low back pain M54.50 ; Spondylosis of lumbosacral region without myelopathy or radiculopathy M47.817 ; Disorder of sacrum M53.3 ; Lumbar post-laminectomy syndrome M96.1 ; Pain in right hip M25.551 and Chronic use of opiate for therapeutic purpose Z79.891 [facility] [address] [address] 06/23/2024 Loly kirk Chronic pain syndrome G89.4 ; Spondylosis of lumbosacral region without myelopathy or radiculopathy M47.817 ; Disorder of sacrum M53.3 ; Lumbar post-laminectomy syndrome M96.1 ; Other low back pain M54.59 ; Pain in right hip M25.551 and [facility] (current) use of opiate analgesic Z79.891 [facility] [address] [address] 09/10/2024 Denise Lebron Chronic pain syndrome G89.4 ; Spondylosis of lumbosacral region without myelopathy or radiculopathy M47.817 ; Disorder of sacrum M53.3 ; Pain in right hip M25.551 ; Lumbar post-laminectomy syndrome M96.1 ; Other low back pain M54.59 and [facility] (current) use of opiate analgesic Z79.891 [facility] [place] [address] [place] [address] 10/06/2024 Loly Ramires-Pric e Chronic pain syndrome G89.4 ; Spondylosis of lumbosacral region without myelopathy or radiculopathy M47.817 ; Disorder of sacrum M53.3 ; Pain in right hip M25.551 ; Lumbar post-laminectomy syndrome M96.1 ; Other low back pain M54.59 and [facility] (current) use of opiate analgesic Z79.891 [facility] [address] [place] [address] 12/02/2024 Loly Rachelsyxin-Pric e Chronic pain syndrome G89.4 ; Other low back pain M54.59 ; Spondylosis of lumbosacral region without myelopathy or radiculopathy M47.817 ; Disorder of sacrum M53.3 ; Lumbar post-laminectomy syndrome M96.1 ; Pain in right hip M25.551 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 Z79.891 [facility] 0 03/21/2024 Provider Migration [facility] 0 03/22/2024 Provider Migration [facility] [place] [address] [place] [address] 04/10/2024 Loly Rachelsyxin-Pric e [facility] [place] [address] [place] [address] 04/13/2024 Loly Rachelsysuzanova-Pric e [facility] [place] [address] [place] [address] 04/28/2024 Loly Rachelsysuzanova-Pric e [facility] [address] [place] [address] 06/04/2024 Loly Rachelsyxin-Pric e Chronic pain syndrome G89.4 [facility] [address] [place] [address] 06/19/2024 Loly Rachelsyxin-Pric e [facility] [place] [address] [place] [address] 07/06/2024 Loly Laresuksyxin-Pric e [facility] [address] [place] [address] 08/27/2024 Loly Rachelsyxin-Pric e [facility] [place] [address] [place] [place] [address] 09/10/2024 Loly Laresuksysuzanova-Pric e Lumbar post-laminectomy syndrome M96.1 [facility] [place] [address] [place] [place] [address] 09/11/2024 Denise Bernardino [facility] [place] [address] [place] [place] [address] 10/12/2024 Loly Laresuksysuzanova-Pric e Spondylosis of lumbosacral region without myelopathy or radiculopathy M47.817 [facility] [place] [address] [place] [address] 12/03/2024 Loly Laresuksyutova-Pric e Spondylosis of lumbosacral region without myelopathy or radiculopathy M47.817 [facility] [address] [place] [address] 12/03/2024 Loly Rachelsysuzanova-Pric e [facility] [address] [place] [address] 12/31/2024 Loly Rachelsysuzanova-Pric e Lumbar post-laminectomy syndrome M96.1 [facility] [address] [place] [address] 01/04/2025 Loly Ramires-Pric e Lumbar post-laminectomy syndrome M96.1 [facility] [place] [address] [place] [address] 01/06/2025 Loly Ramires-Pric e Lumbar post-laminectomy syndrome M96.1 [facility] [place] [address] [place] [id number] 01/07/2025 Loly Ramires-Pric e Lumbar post-laminectomy syndrome M96.1 Assessments Encounter Date Diagnosis (ICD Code) Assessment Notes Treatment Notes Treatment Clinical Notes Section Notes 09/10/2024 Lumbar post-laminectomy syndrome (ICD-10 - M96.1) 12/03/2024 Spondylosis of lumbosacral region without myelopathy or radiculopathy (ICD-10 - M47.817) 12/31/2024 Lumbar post-laminectomy syndrome (ICD-10 - M96.1) 01/04/2025 Lumbar post-laminectomy syndrome (ICD-10 - M96.1) 01/06/2025 Lumbar post-laminectomy syndrome (ICD-10 - M96.1) 01/07/2025 Lumbar post-laminectomy syndrome (ICD-10 - M96.1) 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) 12/02/2024 Other low back pain (ICD-10 - M54.59) 09/10/2024 Chronic pain syndrome (ICD-10 - G89.4) [...] effects are noted. Last UDS and AR EDITORIAL WRITER reviewed today. Patient is advised that best [...] ADLs, denies abuse and side effects. The EDITORIAL WRITER was reviewed with no untoward events noted. [...] ADLs, denies abuse and side effects. The EDITORIAL WRITER was reviewed with no untoward events noted. [...] MS ER over her driving back between [place] and here. She understands that this is a violation of her pain contract. She's had a very difficult time over the last 12 months with the loss of her to cancer and now her son is going in and out of the hospital with stage 5 kidney failure. She is most likely going to be moving to [place] in the next 2-3 months. PDMP reviewed. [...] she's unable to find a physician in [place]. 12/02/2024 Chronic pain syndrome (ICD-10 - G89.4) Ms. Carlson presents today very upset. Her son in [place] was going through dialysis, subsequently had seizures, and has been in a medically induced coma in [place] over the last month. She's had a very difficult time coming back and forth between [place] and [facility]. She's going to be moving to [facility] within the next month or so and is seeking a pain physician there. She lost her here within the last year due to cancer. She reports that she had maybe 30% relief utilizing Methadone compared to her Morphine regimen. She's very hopeful that she could return back to her Morphine regimen, and I counseled her that there are shortages and that she may have difficulty finding a physician in [place] as well as medications in [place]. She still would like to trial to see if her pharmacy has her medications. PDMP reviewed with no untoward events. Last UDS confirmation was consistent with prescribed medications at that time. We'll continue her previous regimen of MS 15 mg TID and MS ER 30 mg daily. She has Narcan available at home. I'll see her back in one month for reevaluation. The options for treatment were explained in detail, this included PT, medications, injections, lifestyle modifications and exercise. The patient presents to clinic for medication evaluation and management. The patient is stable on their current medication regimen and endorses adequate analgesia, increased ADLs, denies abuse and side effects. A bowel regimen was discussed with the patient. 09/10/2024 Disorder of sacrum (ICD-10 - M53.3) 10/06/2024 Spondylosis of lumbosacral region without myelopathy or radiculopathy (ICD-10 - M47.817) 06/23/2024 Disorder of sacrum (ICD-10 - M53.3) 05/05/2024 Spondylosis of lumbosacral region without myelopathy or radiculopathy (ICD-10 - M47.817) 12/02/2024 Spondylosis of lumbosacral region without myelopathy or radiculopathy (ICD-10 - M47.817) 12/02/2024 Disorder of sacrum (ICD-10 - M53.3) 06/23/2024 Lumbar post-laminectomy syndrome (ICD-10 - M96.1) 09/10/2024 Pain in right hip (ICD-10 - M25.551) 05/05/2024 Disorder of sacrum (ICD-10 - M53.3) 10/06/2024 Disorder of sacrum (ICD-10 - M53.3) 09/10/2024 Lumbar post-laminectomy syndrome (ICD-10 - M96.1) 10/06/2024 Pain in right hip (ICD-10 - M25.551) 06/23/2024 Other low back pain (ICD-10 - M54.59) 05/05/2024 Lumbar post-laminectomy syndrome (ICD-10 - M96.1) 12/02/2024 Lumbar post-laminectomy syndrome (ICD-10 - M96.1) 05/05/2024 Pain in right hip (ICD-10 - M25.551) 06/23/2024 Pain in right hip (ICD-10 - M25.551) 10/06/2024 Lumbar post-laminectomy syndrome (ICD-10 - M96.1) 09/10/2024 Other low back pain (ICD-10 - M54.59) 12/02/2024 Pain in right hip (ICD-10 - M25.551) 12/02/2024 [facility] (current) use of opiate analgesic (ICD-10 - Z79.891) 10/06/2024 Other low back pain (ICD-10 - M54.59) 06/23/2024 [facility] (current) use of opiate analgesic (ICD-10 - [...] for therapeutic purpose (ICD-10 - Z79.891) 09/10/2024 [facility] (current) use of opiate analgesic (ICD-10 - Z79.891) 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 Lerma. Dr. lForentin Khalil, personally performed the services described in [...] and it is both accurate and complete. 12/02/2024 Debra Gustafson am scribing for Dr. Lerma. Dr. Florentin Khalil, personally performed the services described in this documentation, as scribed by Debra Emery, and it is both accurate and complete. Plan Of Treatment No Information Insurance Providers Payer Name Payer Address Payer Phone Subscriber Number Group Number Insured Name Patient Relationship to Insured Coverage Start Date Coverage End Date [place] Medicaid [address] [place] [address] [id number] Dolores Carlson Self - patient is the insured Medical (General) History Medical History History ICD Code joint pian Arthritis seizure disorder Hypertension Blood clots headache/migraine Depression Anxiety Surgical History Surgery Date(Month/Year) Tonsillectomy and adenoidectomy Patella repair Carpal Tunnel release Appendectomy Gallbladder Hysterectomy Lumbar fusion SI joint fusion Hospitalization History Reason Date(Month/Year) See surgical Hx
[2025-02-26 17:43] VITALS: BP 187/115; O2SAT 98
--- NOTE | 2025-02-26 18:00 | ED_ITS ---
Documented by User: DONALD Romero 02/26/25 23:55 HPI - Back Pain/Injury General: Chief Complaint: Back Pain/Injury Stated Complaint: thru and thru back to chest pain Time Seen by Provider: 02/26/25 17:38 History of Present Illness: Patient is 44-year-old female that moved back to the area from [place] with her son that was on hospice, was staying in a hotel, and he yesterday. He required moving to adjust, and she was moving boxes 3 days ago. She used to be on chronic pain medication contract in [place], and previously here, and is waiting to establish care with her chronic narcotic physician. She complains of pain in her right flank, and right SI. She has not had any nausea or vomiting, this is worse over time. No fevers. Associated symptoms: Deny abdominal pain, chills, fever(s), nausea or vomiting Related Data Home Medications ?Medication ?Instructions ?Recorded ?Confirmed morphine 15 mg immediate release 15 mg PO .Q4-6H pain 03/27/24 10/15/24 tablet Previous Rx's ?Medication ?Instructions ?Recorded bupropion HCl 300 mg 24 hr tablet, 300 mg PO QAM #30 t abs 01/22/24 extended release morphine 15 mg tablet,extended 15 mg PO Q12H PRN back pain 7 days 01/22/24 release #14 tabs escitalopram oxalate 20 mg tablet 20 mg PO DAILY #30 t abs 03/06/24 olanzapine 20 mg disintegrating 20 mg PO BID #7 tabs 1 05/29/23 tablet (Zyprexa Zydis) amlodipine 5 mg tablet 5 mg PO BID Blood Pressure # 60 tabs 04/02/24 lorazepam 2 mg tablet (Ativan) 2 mg buccal Q6H PRN prasanth sea and 04/02/24 vomiting #14 tabs olanzapine 10 mg disintegrating 10 mg PO Q8H PRN nause a and 04/02/24 tablet vomiting #14 tabs cyclobenzaprine 10 mg tablet 10 mg PO Q8H PRN muscle s pasm #20 06/03/24 tabs [id number] 3.5 1 drp ophthalmic (eye) Q8H #5 mL 09/27/24 mg/mL-10,000 unit/mL-0.1% eye drops (Maxitrol) prednisone 20 mg tablet 20 mg PO DAILY #15 tabs 09/25 07/21 naproxen 375 mg tablet 375 mg PO BID #10 tabs 12/02 methocarbamol 750 mg tablet 750 mg PO Q8H PRN muscle s pasm #30 02/26/25 tabs methylprednisolone 4 mg tablets in See Rx Instructions PO .COMPLEX 02/26/25 a dose pack (Medrol (Sharif)) #21 ea Allergies Allergy/AdvReac Type Severity Reaction Status Date / Time adhesive tape Allergy ALGY-Rash Verified 10/15/24 14:58 haloperidol (From Haldol) Allergy ADR-Irritab Verified 10/15/24 14:58 le hydrocodone Allergy ADR-Nausea Verified 10/15/24 14:58 metoclopramide (From Reglan) Allergy ADR-Itching Verified 10/15/24 14:58 promethazine (From Phenergan) Allergy ADR-Vomitin Verified 10/15/24 14:58 g Review of Systems General: Reports: 10 or more systems reviewed and unremarkable except in HPI and below Const: Denies: fever(s) or chills Eyes: Denies: change in vision or blurry vision ENMT: Denies: throat pain or mouth pain Card: Denies: chest pain or palpitations Resp: Denies: dyspnea or productive cough GI: Denies: abdominal pain, nausea or vomiting : Reports: flank pain (right) Musc: Reports: back pain, joint pain and limited range of motion; Denies: neck pain, extremity pain, extremity swelling or joint swelling Skin/Breast: Denies: rash or pruritus Neuro: Denies: headache(s) or numbness in extremities Psych: Reports: anxiety; Denies: depression PFSH ED PFSH: Medical History (Updated 02/26/25 @ 18:33 by DONALD Romero) Acute viral syndrome Opioid contract exists Encounter for long-term opiate analgesic use Chronic low back pain with sciatica Rosacea History of pulmonary embolism post op, had DVT Dyslipidemia borderline by report, not on treatment Hypertension Chronic narcotic use ~ 2yrs, for back pain Obesity BMI 39 Surgical History History of appendectomy History of cholecystectomy H/O laminectomy History of carpal tunnel release left History of D&C History of hysterectomy due to life threatening bleeding while on anticoagulation for PE/DVT History of laparoscopic adjustable gastric banding History of tonsillectomy History of back surgery (~2018) History of right knee surgery (~2008) patellar realignment Family History Father Cancer pancreatic cancer Other Diabetes Heart disease Hypertension Social History Smoking and tobacco/nicotine status: never used tobacco/nicotine Alcohol intake: never Substance/Drug Use: never Lives independently: Yes Household members: spouse Current occupational status: disabled Female Reproductive History: Para: 3 Spontaneous abortions: No Physical Exam Const: COMMON NORMALS: no acute distress, average body habitus and patient oriented x3 HENMT: COMMON NORMALS: normocephalic and atraumatic HEAD & SCALP: normocephalic and atraumatic Eye: COMMON NORMALS: Equal, round and reactive pupils present, EOMs intact bilaterally, conjunctivae normal, no scleral icterus and no papilledema CONJUNCTIVA: Yes conjunctivae normal PUPIL: Yes Equal, round and reactive pupils present DIRECT OPHTHALMOSCOPY: Yes no papilledema Lymph: LYMPHATIC: no lymphadenopathy noted Chest: COMMONS NORMALS: normal inspection of the chest and normal palpation of entire chest wall Resp: COMMON NORMALS: normal respiratory effort, No retractions and clear to auscultation bilaterally AUSCULTATION: clear to auscultation bilaterally Cardio: COMMON NORMALS: regular rate and regular rhythm RATE: regular rate RHYTHM: regular rhythm GI: COMMON NORMALS: Normal to inspection, nondistended, normoactive bowel sounds present and Soft to palpation PALPATION: Yes Soft to palpation : COMMON NORMALS: Yes no CVA tenderness BLADDER/KIDNEY EXAM: Yes no CVA tenderness Back/Pelvis: COMMON NORMALS: no CVA tenderness THORACIC SPINE/UPPER BACK: Yes normal to inspection SACROILIAC JOINTS: Yes SI joint(s) abnormal SI joint details: tender to palpation (right) Neuro: COMMON NORMALS: patient oriented x3 Psych: COMMON NORMALS: mental status grossly normal, Normal thought process present, cooperative and normal affect THOUGHT PROCESS: Normal thought process present Course Vital Signs: Vital signs: Vital Signs Pulse Rate 63 02/26/25 18:53 Respiratory Rate 17 02/26/25 18:53 Blood Pressure 168/101 02/26/25 18:53 Pulse Oximetry 97 10/03/25 18:53 Oxygen Delivery Me thod Room Air 02/26/25 17:43 MDM - Back Pain/Injury Medical Decision Making Patient is 44-year-old female that reports to emergency room with SI pain on exam, on the right side. She also had some flank tenderness, and therefore urine analysis was obtained. On urine analysis, this was negative for blood, or bacteria. Patient became upset just after exam and started crying out in pain when she was told she could not have opioids through the ED. Discussed with collaborating physician, Dr. Crow, that agrees. This is not the role of the emergency department, however following standard of care is. Patient be discharged home with recommendations to follow-up with primary care. Medical Records I reviewed the patient's medical records. Labs I reviewed the patient's lab results. Laboratory Results Urine Color Yellow (Yellow) 02/26/25 18:11 Urine Appearance Cloudy (CLEAR) A 02/26/25 18:11 Urine pH 8.0 (5-7) A 02/26/25 18:11 Ur Specific [place] 1.022 (1.005-1.030) 02/26/25 18:11 Urine Protein Negative (Negative) 02/26/25 18:11 Urine Glucose (UA) Negative (Normal) 02/26/25 18:11 Urine Ketones Negative (Negative) 02/26/25 18:11 Urine Blood Negative (Negative) 02/26/25 18:11 Urine Nitrate Negative (Negative) 02/26/25 18:11 Urine Bilirubin Negative (Negative) 02/26/25 18:11 Urine Urobilinogen 1.0 mg/dL (Negative) 02/26/25 18:11 Ur Leukocyte Esterase Negative (Negative) 02/26/25 18:11 Urine RBC 0-2 /hpf (0-2) 02/26/25 18:11 Urine WBC 0-4 /hpf (0-5) H 02/26/25 18:11 Ur Squamous Epith Cells 3-5 /hpf (0-5) 02/26/25 18:11 Amorphous Sediment 3+ /hpf 02/26/25 18:11 Urine Bacteria None /hpf (NONE) 02/26/25 18:11 No radiology studies performed this visit Discharge Plan Discharge Patient Disposition: Home Clinical Impression: Acute right-sided back pain with sciatica Condition: Stable Prescriptions: New methocarbamol 750 mg tablet 750 mg PO Q8H PRN (Reason: muscle spasm) Qty: 30 0RF methylprednisolone [Medrol (Sharif)] 4 mg tablets,dose pack See Rx Instructions .ROUTE .COMPLEX Qty: 21 0RF Rx Instructions: for 6 days No Action escitalopram oxalate 20 mg tablet 20 mg PO DAILY Qty: 30 0RF morphine 15 mg tablet extended release 15 mg PO Q12H MDD 2 PRN (Reason: back pain) 7 Days Qty: 14 0RF bupropion HCl 300 mg tablet extended release 24 hr 300 mg PO QAM Qty: 30 5RF povidone-iodine [Betadine Swabsticks] 10 % swab 2 applic topical ONCE Qty: 1 0RF neomycin-polymyxin B-dexameth [Maxitrol] 3.5mg/mL-10,000 unit/mL-0.1 % drops,suspension 1 drp ophthalmic (eye) Q8H Qty: 5 0RF prednisone 20 mg tablet 20 mg PO DAILY Qty: 15 0RF Rx Instructions: 60mg for three days, 40mg for two days, 20mg for two days cyclobenzaprine 10 mg tablet 10 mg PO Q8H PRN (Reason: muscle spasm) Qty: 20 0RF morphine 15 mg tablet 15 mg PO .Q4-6H olanzapine [Zyprexa Zydis] 20 mg tablet,disintegrating 20 mg PO BID Qty: 7 0RF olanzapine 10 mg tablet,disintegrating 10 mg PO Q8H PRN (Reason: nausea and vomiting) Qty: 14 0RF lorazepam [Ativan] 2 mg tablet 2 mg buccal Q6H PRN (Reason: nausea and vomiting) Qty: 14 0RF amlodipine 5 mg tablet 5 mg PO BID Qty: 60 0RF naproxen 375 mg tablet 375 mg PO BID Qty: 10 0RF Discharge Orders: Discharge ED (Routine); Ordered 02/26/25 Ordered By: Jesica Rueda Discharge Diet: Usual diet Discharge Activity: Limit activity as instructed Patient Instructions: Sciatica (ED), Patient Portal & Klever Instructions Activity Restrictions/Additional Instructions: - Precautions with lifting, no lifting over half gallon amount -Contact your opioid management physician for any opioids. We do not dispense opioids from the ED for chronic issues. - Make an appointment with your primary care physician for follow-up - Both Medrol Dosepak and methocarbamol (muscle relaxer) have been sent to your pharmacy. Please obtain this early in the morning and start right away. - Return to ED with worsening back pain. Print Language: East Timorese Coding Level of Care Code ED Wireless Development Manager for Henrig Fwd Documented by User: Rio Crow, 02/27/25 00:08 HPI - Back Pain/Injury General: Chief Complaint: Back Pain/Injury Stated Complaint: thru and thru back to chest pain Time Seen by Provider: 02/26/25 17:38 Related Data Home Medications ?Medication ?Instructions ?Recorded ?Confirmed morphine 15 mg immediate release 15 mg PO .Q4-6H pain 03/27/24 10/15/24 tablet Previous Rx's ?Medication ?Instructions ?Recorded bupropion HCl 300 mg 24 hr tablet, 300 mg PO QAM #30 t abs 01/22/24 extended release morphine 15 mg tablet,extended 15 mg PO Q12H PRN back pain 7 days 01/22/24 release #14 tabs escitalopram oxalate 20 mg tablet 20 mg PO DAILY #30 t abs 03/06/24 olanzapine 20 mg disintegrating 20 mg PO BID #7 tabs 1 05/29/23 tablet (Zyprexa Zydis) amlodipine 5 mg tablet 5 mg PO BID Blood Pressure # 60 tabs 04/02/24 lorazepam 2 mg tablet (Ativan) 2 mg buccal Q6H PRN prasanth sea and 04/02/24 vomiting #14 tabs olanzapine 10 mg disintegrating 10 mg PO Q8H PRN nause a and 04/02/24 tablet vomiting #14 tabs cyclobenzaprine 10 mg tablet 10 mg PO Q8H PRN muscle s pasm #20 06/03/24 tabs [id number]-pjonhxsk 3.5 1 drp ophthalmic (eye) Q8H #5 mL 09/27/24 mg/mL-10,000 unit/mL-0.1% eye drops (Maxitrol) prednisone 20 mg tablet 20 mg PO DAILY #15 tabs 09/25 07/21 naproxen 375 mg tablet 375 mg PO BID #10 tabs 12/02 methocarbamol 750 mg tablet 750 mg PO Q8H PRN muscle s pasm #30 02/26/25 tabs methylprednisolone 4 mg tablets in See Rx Instructions PO .COMPLEX 02/26/25 a dose pack (Medrol (Sharif)) #21 ea Allergies Allergy/AdvReac Type Severity Reaction Status Date / Time adhesive tape Allergy ALGY-Rash Verified 10/15/24 14:58 haloperidol (From Haldol) Allergy ADR-Irritab Verified 10/15/24 14:58 le hydrocodone Allergy ADR-Nausea Verified 10/15/24 14:58 metoclopramide (From Reglan) Allergy ADR-Itching Verified 10/15/24 14:58 promethazine (From Phenergan) Allergy ADR-Vomitin Verified 10/15/24 14:58 g PFSH ED PFSH: Medical History (Updated 02/26/25 @ 18:33 by DONALD Romero) Acute viral syndrome Opioid contract exists Encounter for long-term opiate analgesic use Chronic low back pain with sciatica Rosacea History of pulmonary embolism post op, had DVT Dyslipidemia borderline by report, not on treatment Hypertension Chronic narcotic use ~ 2yrs, for back pain Obesity BMI 39 Surgical History History of appendectomy History of cholecystectomy H/O laminectomy History of carpal tunnel release left History of D&C History of hysterectomy due to life threatening bleeding while on anticoagulation for PE/DVT History of laparoscopic adjustable gastric banding History of tonsillectomy History of back surgery (~2017) History of right knee surgery (~2008) patellar realignment Family History Father Cancer pancreatic cancer Other Diabetes Heart disease Hypertension Social History Smoking and tobacco/nicotine status: never used tobacco/nicotine Alcohol intake: never Substance/Drug Use: never Lives independently: Yes Household members: spouse Current occupational status: disabled Course Vital Signs: Vital signs: Vital Signs Pulse Rate 63 02/26/25 18:53 Respiratory Rate 17 02/26/25 18:53 Blood Pressure 168/101 02/26/25 18:53 Pulse Oximetry 97 02/26/25 18:53 Oxygen Delivery Me thod Room Air 02/26/25 17:43 MDM - Back Pain/Injury Medical Decision Making Patient is 44-year-old female that reports to emergency room with SI pain on exam, on the right side. She also had some flank tenderness, and therefore urine analysis was obtained. On urine analysis, this was negative for blood, or bacteria. Patient became upset just after exam and started crying out in pain when she was told she could not have opioids through the ED. Discussed with collaborating physician, Dr. Crow, that agrees. This is not the role of the emergency department, however following standard of care is. Patient be discharged home with recommendations to follow-up with primary care. Patient was seen by Ms. Marybeth PA-C. I agree with her history, evaluation, and management. Labs Laboratory Results Urine Color Yellow (Yellow) 02/26/25 18:11 Urine Appearance Cloudy (CLEAR) A 02/26/25 18:11 Urine pH 8.0 (5-7) A 02/26/25 18:11 Ur Specific [place] 1.022 (1.005-1.030) 02/26/25 18:11 Urine Protein Negative (Negative) 02/26/25 18:11 Urine Glucose (UA) Negative (Normal) 02/26/25 18:11 Urine Ketones Negative (Negative) 02/26/25 18:11 Urine Blood Negative (Negative) 02/26/25 18:11 Urine Nitrate Negative (Negative) 02/26/25 18:11 Urine Bilirubin Negative (Negative) 02/26/25 18:11 Urine Urobilinogen 1.0 mg/dL (Negative) 02/26/25 18:11 Ur Leukocyte Esterase Negative (Negative) 02/26/25 18:11 Urine RBC 0-2 /hpf (0-2) 02/26/25 18:11 Urine WBC 0-4 /hpf (0-5) H 02/26/25 18:11 Ur Squamous Epith Cells 3-5 /hpf (0-5) 02/26/25 18:11 Amorphous Sediment 3+ /hpf 02/26/25 18:11 Urine Bacteria None /hpf (NONE) 02/26/25 18:11 Discharge Plan Discharge Patient Disposition: Home Clinical Impression: Acute right-sided back pain with sciatica Condition: Stable Prescriptions: New methocarbamol 750 mg tablet 750 mg PO Q8H PRN (Reason: muscle spasm) Qty: 30 0RF methylprednisolone [Medrol (Sharif)] 4 mg tablets,dose pack See Rx Instructions .ROUTE .COMPLEX Qty: 21 0RF Rx Instructions: for 6 days No Action escitalopram oxalate 20 mg tablet 20 mg PO DAILY Qty: 30 0RF morphine 15 mg tablet extended release 15 mg PO Q12H MDD 2 PRN (Reason: back pain) 7 Days Qty: 14 0RF bupropion HCl 300 mg tablet extended release 24 hr 300 mg PO QAM Qty: 30 5RF povidone-iodine [Betadine Swabsticks] 10 % swab 2 applic topical ONCE Qty: 1 0RF neomycin-polymyxin B-dexameth [Maxitrol] 3.5mg/mL-10,000 unit/mL-0.1 % drops,suspension 1 drp ophthalmic (eye) Q8H Qty: 5 0RF prednisone 20 mg tablet 20 mg PO DAILY Qty: 15 0RF Rx Instructions: 60mg for three days, 40mg for two days, 20mg for two days cyclobenzaprine 10 mg tablet 10 mg PO Q8H PRN (Reason: muscle spasm) Qty: 20 0RF morphine 15 mg tablet 15 mg PO .Q4-6H olanzapine [Zyprexa Zydis] 20 mg tablet,disintegrating 20 mg PO BID Qty: 7 0RF olanzapine 10 mg tablet,disintegrating 10 mg PO Q8H PRN (Reason: nausea and vomiting) Qty: 14 0RF lorazepam [Ativan] 2 mg tablet 2 mg buccal Q6H PRN (Reason: nausea and vomiting) Qty: 14 0RF amlodipine 5 mg tablet 5 mg PO BID Qty: 60 0RF naproxen 375 mg tablet 375 mg PO BID Qty: 10 0RF Discharge Orders: Discharge ED (Routine); Ordered 02/26/25 Ordered By: Jesica Rueda Discharge Diet: Usual diet Discharge Activity: Limit activity as instructed Patient Instructions: Sciatica (ED), Patient Portal & Klever Instructions Activity Restrictions/Additional Instructions: - Precautions with lifting, no lifting over half gallon amount -Contact your opioid management physician for any opioids. We do not dispense opioids from the ED for chronic issues. - Make an appointment with your primary care physician for follow-up - Both Medrol Dosepak and methocarbamol (muscle relaxer) have been sent to your pharmacy. Please obtain this early in the morning and start right away. - Return to ED with worsening back pain. Print Language: [place]se Coding Level of Care Code ED Wireless Development Manager for Zabrina Burgess
[2025-02-26] MEDS: orphenadrine 30 mg/mL Inj 2 mL 60 MG IM (18:03)
[2025-02-26 18:24] LABS: Glucose Urine UA Negative (Normal); Nitrate Urine Negative (Negative); Specific Gravity, Urine 1.022 (1.005-1.030)
[2025-02-26 18:53] VITALS: BP 168/101; PULSE 63; RESP 17; O2SAT 97
[2025-02-26 19:06] LABS: Add Urine Microscopic? YES; UA Manual Slide Review YES; UA Slide Review UA Slide Review Perf
== END 2025-02-26 18:54 | disposition home or self-care (01) ==
PROVIDERS: Emergency Provider Physician Assistant
DX: M54.9 Dorsalgia, unspecified (principal); M54.31 Sciatica, right side; E78.5 Hyperlipidemia, unspecified; I10 Essential (primary) hypertension
CPT/HCPCS: 81001; 96372; 99284; J1100; J1885; J2360

== ENCOUNTER → 2025-03-23 10:44 | Outpatient (BNVA) | payer MEDICAID, SELFPAY | PROVIDERS: Visit Provider Orthopaedic Surgery | DX: M54.9 Dorsalgia, unspecified (principal); Z98.1 Arthrodesis status | CPT/HCPCS: 72110; 99213 ==

== ENCOUNTER 2025-04-01 13:27 | Outpatient (CLI) | payer MEDICAID, SELFPAY ==
--- NOTE | 2025-04-01 13:45 | MR_ITS ---
WS: [id number] MRI LUMBAR SPINE NONCONTRAST HISTORY: Back pain COMPARISON: None available. TECHNIQUE: Sagittal and axial multisequence imaging is submitted. Prior lumbar spine fusion from L3-S2. Mild increase in the lumbar lordosis. Interbody spacer at L4-5. Moderate disc space narrowing at the L4-5 level. No acute fractures or marrow edema. Conus terminates normally at L1-2 disc level. L1-L2: Normal. L2-L3: Diffuse disc bulging with ligamentum flavum and facet arthritis encroaching upon the thecal sac. Thecal sac is being deformed and narrowed. Mild central and bilateral subarticular recess and foraminal stenosis. L3-L4: Mild disc bulging with ligamentum flavum and facet arthritis. No stenosis. L4-L5: Mild osteophytic ridging. Laminectomy defect posteriorly. Bilateral foraminal stenosis, stenosis is mild to moderate with no obvious change since the prior study. Nerve roots are positioned within the peripheral thecal sac. L5-S1: Mild disc bulging. Mild bilateral foraminal stenosis. Posterior laminectomy defects. Improving postoperative changes through the laminectomy defects and in the subcu soft tissues of the lumbar spine. MR/MR lumbar spine wo con* [id number] IMPRESSION: 1. Status post fusion from L3-S2. 2. Moderate disc space narrowing with interbody spacer at L4-5 is unchanged. 3. Progression of mild central, bilateral subarticular recess and foraminal st enosis at L2-3. 4. Mild to moderate bilateral foraminal stenosis at L4-5 is similar to the marquita or exam. 5. Mild foraminal stenosis at L5-S1. 6. Improving postoperative changes in the soft tissues. 7. Mild arachnoiditis.
--- NOTE | 2025-04-01 14:30 | MR_ITS ---
WS: [id number] MRI THORACIC SPINE without contrast. HISTORY: Back pain COMPARISON: None available. TECHNIQUE: Multiplanar sequences are performed in sagittal and axial planes. Small central disc protrusion at C5-6. Normal thoracic alignment. No fractures or marrow edema. Normal signal in the thoracic cord. T1-2: Normal. T2-3: Normal. T3-4: Mild facet arthritis. T4-5: Small central disc protrusion. Mild facet arthritis. T5-6: Mild facet arthritis. T6-7: Mild foraminal narrowing and facet arthritis. T7-8: Mild bilateral foraminal stenosis and facet arthritis. T8-9: Marked facet joint arthritis and bilateral moderate foraminal stenosis. T9-10: Marked facet joint arthritis and moderate foraminal stenosis. T10-11: Severe facet joint arthritis encroaching upon the thecal sac. Moderate foraminal stenosis. T11-12: No stenosis. Paravertebral soft tissues are normal. MR/MR thoracic spin wo con* [id number] IMPRESSION: 1. No acute thoracic spine fracture. 2. Facet joint arthropathy from T3-4 through T10-11. 3. Marked facet joint arthropathy at T8-9, T9-10 and T10-11. 4. Moderate bilateral foraminal stenosis at T8-9, T9-10 and T10-11.
== END 2025-04-01 13:28 | disposition home or self-care (01) ==
LOC: RAD 13:28
PROVIDERS: Visit Provider Orthopaedic Surgery
DX: M54.9 Dorsalgia, unspecified (principal); M46.94 Unspecified inflammatory spondylopathy, thoracic region; M99.72 Connective tissue and disc stenosis of intervertebral foramina of thoracic region
CPT/HCPCS: 72146; 72148

== ENCOUNTER → 2025-04-13 10:23 | Outpatient (BNVA) | payer MEDICAID, SELFPAY | PROVIDERS: Visit Provider Orthopaedic Surgery | DX: M48.061 Spinal stenosis, lumbar region without neurogenic claudication (principal); M47.814 Spondylosis without myelopathy or radiculopathy, thoracic region | CPT/HCPCS: 99213 ==

== ENCOUNTER → 2025-05-25 14:23 | Outpatient (BNVA) | payer MEDICAID, SELFPAY | PROVIDERS: Visit Provider Orthopaedic Surgery | DX: M54.2 Cervicalgia (principal); M79.602 Pain in left arm | CPT/HCPCS: 99213 ==